=== PATIENT | female | born 1955 | race Caucasian/White ===

== ENCOUNTER 2023-07-26 04:53 | Outpatient (OUT) | payer MEDICARE, OTHER, SELFPAY ==
--- NOTE | 2023-07-26 05:27 | XR_ITS ---
The [address] [address] Patient Name: CHAY DELACRUZ MRN: [id number] date: 1955 Sex: F Assigned Patient Location: [facility] Current Patient Location: [facility] Accession/Order Number: [id number] Exam Date: 07/26/2023 05:29 Report Date: 07/26/2023 15:51 At the request of: JS SALEEM Procedure: XR hip RT min 2V PROCEDURE: XR hip RT min 2V DATE: 07/26/2023 4:29 AM CDT COMPARISONS: None CLINICAL INDICATION: pain FINDINGS: There is no evidence of fractures or other acute osseous abnormalities. Slight spurring of the superior lateral acetabula. Slight cystic change in the area of this spurring. This may represent mild developing degenerative change. The right hip joint space does not appear narrowed however. No other osseous abnormalities identified. XR/XR hip RT min 2V IMPRESSION: Right hip radiographs show no evidence of acute abnormalities. Findings as discussed above. Electronically authenticated by: JOYCELYN QURESHI Date: 07/26/2023 15:51
== END 2023-07-26 04:54 | disposition home or self-care (01) ==
LOC: RAD 04:57
PROVIDERS: Visit Provider Internal Medicine
DX: M25.551 Pain in right hip (principal)
CPT/HCPCS: 73502

== ENCOUNTER 2024-02-08 00:15 | Emergency (ER) | payer MEDICARE, OTHER, SELFPAY ==
--- OUTSIDE RECORDS SUMMARY | 2024-02-08 00:24 | XMS_ITS | CCD ---
Author Organization [facility] Care Team Providers Care Family Nurse Name Role Phone Vivi Liao Primary Care Provider [phone] LUCHO JAUREGUI Referring Unavailable VIVI LIAO Primary Care Unavailable ULCHO JAUREGUI Referring Unavailable VIVI LIAO Primary Care Unavailable Vivi Liao MD Primary Care Provide r Petey Vargas Unavailable [phone] Adan Campbell (Hist) Unavailable Rhiannon Maza RN Unavailable Rome Barboza MD Unavailable Brittany Hernandez PA-C Unavailable Ivory Romo Unavailable Vivi Liao Unavailable VIVI LIAO Primary Care Physician Vivi Liao MD Primary Care Provide r Petey Vargas Unavailable Adan Campbell (Hist) Unavailable Rhiannon Maza RN Unavailable Rome Barboza MD Unavailable [phone] Brittany Hernandez PA-C Unavailable DR KASSIE ARROYO Admitting Unavailable DINA, DR FERNANDO Attending Unavailable DR VIVI LAIO Consulting UnavailDR KASSIE Mendoza Consulting Unavailable BASILIA MUELLER Consulting Unavailable BASILIA MUELLER Attending Unavailable BASILIA MUELLER Admitting Unavailable Rome Barboza Unavailable Unavailable Arnaldo Judd Unavailable Unavailable Cuate, Khaled Unavailable Unavailable Eric Sol MD Unavailable [place] SOFTWARE QUALITY ASSURANCE ANALYST.FUNNEL SETTEREfreny Unavailable Krysta CALIX, Linette Unavailable [phone] MD Vivi Liao Primary Care Provider [phone] DO Raffaele Mejia Emergency Provider ARNALDO JUDD Referring Unavailable VIVI LIAO Primary Care Unavail able SCOTTIE GARCIA Attending Unavailable CHOLO CUELLO Referring Unavailable YUSUF VALDIVIA Attending Unavailable VIVI LIAO Primary Care Unavail able ARNALDO JUDD Attending Unavailable VIVI LIAO Primary Care Unavail able ARNALDO JUDD Admitting Unavailable Petey Vargas Unavailable Eric Sol MD Unavailable Krsyta CALIX, Linette Unavailable Vivi Liao MD Primary [facility] Provide r Petey Vargas Unavailable Adan Campbell (Hist) Unavailable Eric Sol MD Unavailable [place] SOFTWARE QUALITY ASSURANCE ANALYST.FUNNEL SETTEREfreny Unavailable [phone] Krysta CALIX, Linette Unavailable MD Vivi Liao Primary Care Provider MD Kassie Arroyo Attending Provider [phone] Adan Campbell MD Unavailable [phone] Petey Woodall MD Unavailable [phone] Adan Campbell MD Unavailable [phone] Krysta CALIX, Linette Unavailable [phone] MD Vivi Liao Primary Care Provider MD Kassie Arroyo Attending Provider MD Vivi Liao Primary Care Provider MD Kassie Arroyo Attending Provider Vivi Liao Primary Care Unavailable Dina, Kassie Admitting Unavailable Kassie Arroyo Attending Unavailable Vivi Liao Primary Care Unavailable Dina, Kassie Admitting Unavailable Dina, Kassie Attending Unavailable Vivi Liao Primary Care Unavailable Dina, Kassie Admitting Unavailable Dina, Kassie Attending Unavailable CAILIN HOWARD Referring Unavailable VIVI LIAO [facility] Unavail able JULIETTE BUTTS Attending Unavailable VIVI LIAO [facility] Unavail able ABHYANKAR, ERIC Attending Unavailable ABHYANKAR, ERIC Referring Unavailable VIVI LIAO [facility] Unavail able VIVI LIAO Primary [facility] Unavail able CAILIN HOWARD Attending Unavailable VIVI LIAO [facility] Unavail able VIVI LIAO Primary [facility] Unavail able JAROD FAJARDO Attending Unavailable CAILIN HOWARD Attending Unavailable ARNALDO JUDD Referring Unavailable VIVI LIAO [facility] Unavail able ABHYANKAR, ERIC Attending Unavailable ABHYANKAR, ERIC Referring Unavailable VIVI LIAO [facility] Unavail able VIVI LIAO [facility] Unavail able ABHYANKAR, ERIC Referring Unavailable VIVI LIAO [facility] Unavail able JOSE, TOÑA Referring Unavailable VIVI LIAO [facility] Unavail able JOSE, TOÑA Attending Unavailable VIVI LIAO [facility] Unavail able JOSE, TOÑA Referring Unavailable Allergies Allergy Classification Reported Allergen(s) Allergy Type Date of Onset Reaction(s) Facility (2 sources) HYDROmorphone Drug Allergy [facility] Other (1 source) HYDROmorphone Drug Allergy [address] [place] [address] Repository Medications Current Medications Medication Drug Class(es) Dates Sig (Normalized) Sig (Original) albuterol 0.83 mg/ml inhalant solution (2 sources) beta2-Adrenergic Agonist Start: 07-04-2020 End: 08-03-2020 albuterol (PROVENTIL) (2.5 MG/3ML) 0.083% nebulizer solution Indications: Chronic obstructive pulmonary disease, unspecified COPD type (HCC) Take 3 mLs by nebulization every 6 hours as needed for Wheezing 120 each 5 07/04/2020 08/03/2020 Active apixaban 5 mg oral tablet (3 sources) Factor Xa Inhibitor Start: 12-19-2023 End: 03-18-2024 take 1 tablet by mouth twice daily apixaban (ELIQUIS) 5 mg tab(s) Take 1 tablet by mouth two times a day. 60 tablet 2 12/19/2023 03/18/2024 Active Comment on above: Take 1 tablet by jeanmarie th two times a day. azithromycin 250 mg oral tablet (10 sources) Macrolide Antimicrobial Start: 02-25-2022 Zithromax Z-Arsenio 250 MG 2 tablets on the first day, then 1 tablet daily for 4 days Orally Once a day for 5 day(s) Jun, Active dicyclomine hydrochloride 10 mg oral capsule (5 sources) Anticholinergic Start: 05-16-2022 take 10 mg by mouth twice daily Dicyclomine Active 10 MG PO Twice daily May 16, 2022 12:00am famotidine 20 mg oral tablet (20 sources) Histamine-2 Receptor Antagonist Start: 11-28-2021 End: 03-17-2023 take 1 tablet by mouth once daily before mealtime Famotidine (Pepcid Ac) 20 mg Tablet Active 20 MG PO Daily May 16, 2022 12:00am Comment on above: Take 1 tablet by jeanmarie as needed. Flinstones Gummies Buskirk-3 DHA - (5 sources) take 2 tablets by mouth once daily Flinstones Gummies Buskirk-3 DHA - 2 tablets Orally Once a day Active Flintstones Multivitamins (1 source) Start: 10-06-2021 Flintstones Multivitamins 1 tab(s), Chewed, Daily, Refill(s) 0 Start Date: 10/06/21 Status: Ordered furosemide 20 mg oral tablet (19 sources) Loop Diuretic Start: 03-18-2018 End: 04-23-2022 take 1 tablet by mouth once daily as needed Lasix 20 mg Tab 20 mg = 1 tab(s), Oral, Daily, PRN for leg swelling, Refills(s) 0 Start Date: 10/06/21 Status: Ordered Comment on above: Take 20 mg by mouth as needed. imatinib 400 mg oral tablet (20 sources) Kinase Inhibitor Start: 05-14-2022 End: 05-22-2022 take 400 mg by mouth once daily Imatinib Active 400 MG PO Daily May 16, 2022 12:00am Start: 01-16-2022 End: 02-15-2022 take 1 tablet by mouth once daily imatinib (GLEEVEC) 400 mg tablet Take 1 tablet (400 mg) by mouth once daily. 30 tablet 3 01/16/2022 Active Start: 12-11-2021 End: 01-10-2022 take 1 tablet by mouth once daily imatinib (GLEEVEC) 400 mg tablet Take 1 tablet (400 mg) by mouth once daily. 30 tablet 0 12/11/2021 01/10/2022 Active Comment on above: Take 1 tablet (400 m g) by mouth once daily. Take 1 tablet by jeanmarie th once daily levoFLOXacin 500 mg oral tablet (5 sources) Quinolone Antimicrobial Start: 01-27-20 take 1 tablet by mouth every twenty-four hours levoFLOXacin 500 MG 1 tablet Orally Once a day for 10 day(s) Jan, Active Multi For Her (11 sources) Multi For Her Ac tive MULTIPLE VITAMIN PO (2 sources) Start: 10-02-20 18 MULTIPLE VITAMIN PO Multivitamin preparation Multivitamin Active 1 TAB Oral Daily October 02, 2018 6:47pm 10-02-2018 [facility] ([id number]) [id number] 10/02/2018 Active Multivitamin preparation (5 sources) Start: 10-02-20 18 take 1 tablet by mouth once daily Multivitamin Active 1 TAB PO Daily October 02, 2018 12:00am Start: 10-02-2018 take 1 tablet by jeanmarie th once daily Multivitamin Active 1 TAB PO Daily October 02, 2018 1:00am ondansetron 8 mg oral tablet (20 sources) Serotonin-3 Receptor Antagonist Start: 09-17-2023 End: 10-17-2023 take 1 tablet by mouth every eight hours as needed ondansetron (ZOFRAN) 8 mg tablet Take 1 tablet by mouth every 8 hours as needed for nausea/vomiting. 90 tablet 0 09/17/2023 10/17/2023 Active Start: 04-29-2022 End: 05-29-2022 take 1 tablet by mouth every eight hours as needed ondansetron (ZOFRAN) 4 mg tablet Take 1 tablet by mouth every 8 hours as needed for nausea/vomiting. 60 tablet 0 04/29/2022 05/29/2022 Active Start: 11-28-2021 End: 04-18-2022 take 1 tablet by mouth every eight hours as needed ondansetron (ZOFRAN) 8 mg tablet Take 1 tablet by mouth every 8 hours as needed for nausea/vomiting. 90 tablet 2 03/19/2022 04/18/2022 Start: 11-01-2021 take 1 tablet by jeanmarie th every twelve hours Ondansetron HCl 4 MG 1 tablet Orally bid for 30 day(s) Oct, Active Start: 07-05-2018 take 1 tablet by jeanmarie th every eight hours Ondansetron (Zofran Odt) 4 mg tablet,disintegrating Active 4 MG PO Q8H July 05, 2018 11:46am Comment on above: Take 1 tablet by jeanmarie th every 8 hours as needed for nausea/vomiting. Take 8 mg by mouth e very 8 hours as needed for nausea/vomiting. perflutren lipid microspheres 1.3 mL in NaCl (PF) 0.9% 10 mL injection (DEFINITY) (20 sources) Start: 12-19-2023 End: 03-19-2025 perflutren lipid microspheres 1.3 mL in NaCl (PF) 0.9% 10 mL injection (DEFINITY) Start: 03-19-2023 End: 06-17-2024 perflutren lipid microsphere s 1.3 mL in NaCl (PF) 0.9% 10 mL injection (DEFINITY) Start: 04-23-2022 End: 07-23-2023 perflutren lipid microsphere s 1.3 mL in NaCl (PF) 0.9% 10 mL injection (DEFINITY) Respiratory Therapy Supplies (FLUTTER) RUBEN (2 sources) Start: 07-04-2020 Respiratory Th erapy Supplies (FLUTTER) RUBEN Acapella flutter valve device 1 Device 0 07/04/2020 Active Respiratory Therapy Supplies (NEBULIZER AIR TUBE/PLUGS) [facility] (2 sources) Start: 07-04-2020 Respiratory Th erapy Supplies (NEBULIZER AIR TUBE/PLUGS) [facility] Nebulizer machine with tubing and supplies Diagnosis COPD and bronchiectasis 1 each 0 07/04/2020 Active 125 ml sodium chloride 9 mg/ml prefilled syringe (20 sources) Start: 04-23-2022 End: 03-19-2025 sodium chloride 0.9 % (flush) 10 mL (BD POSIFLUSH) sucralfate 1000 mg oral tablet (6 sources) Aluminum Complex Start: 04-29-2022 End: 05-29-2022 take 1 tablet by mouth at bedtime sucralfate (CARAFATE) 1 gram tablet Take 1 tablet by mouth before meals and at bedtime. 120 tablet 0 04/29/2022 05/29/2022 Active Comment on above: Take 1 tablet by jeanmarie th before meals and at bedtime. warfarin sodium 2.5 mg oral tablet (5 sources) Vitamin K Antagonist Warfarin Sodium 2.5 MG as directed Orally Once a day Active Completed/Discontinued Medications Medication Drug Class(es) Dates Sig (Normalized) Sig (Original) acetaminophen 500 mg oral tablet (6 sources) Start: 04-29-2022 End: 05-29-2022 take 2 tablets by mouth every eight hours as needed acetaminophen (TYLENOL) 500 mg tablet Take 2 tablets by mouth every 8 hours as needed for pain. 60 tablet 0 04/29/2022 05/16/2022 Discontinued (Other) Comment on above: Take 2 tablets by mo uth every 8 hours as needed for pain. alendronic acid 70 mg oral tablet (4 sources) Bisphosphonate Start: 10-31-2022 End: 03-17-2023 take 1 tablet by mouth every week in the morning alendronate (FOSAMAX) 70 mg tablet TAKE ONE TABLET BY MOUTH EVERY WEEK ON AN EMPTY STOMACH FIRST THING IN THE MORNING -- DO NOT EAT, DRINK OR LIE DOWN FOR ONE HOUR 0 10/31/2022 03/17/2023 Discontinued Comment on above: TAKE ONE TABLET BY M OUTH EVERY WEEK ON AN EMPTY STOMACH FIRST THING IN THE MORNING -- DO NOT EAT, DRINK OR LIE DOWN FOR ONE HOUR amoxicillin 500 mg oral capsule (14 sources) Penicillin-class Antibacterial Start: 06-20-2023 amoxicillin (AMOXIL) 500 mg capsule Take 500 mg by mouth as needed. Prior to dental procedures 0 06/20/2023 Active Start: 06-12-2023 Amoxicillin 50 0 MG 2 tabs 1-2 hours before the procedure, then 1 tab qid for two days after the procedure Orally for 3 days Jun, Active Start: 07-23-2021 Amoxicillin 50 0 MG 2 tabs 2 hours before procedure, then 1 tab every 6 hours for 2 days after Orally Jul, Active Comment on above: Take 500 mg by mouth as needed. Prior to dental procedures Ascorbic Acid (16 sources) Vitamin C ascorbic acid (VITAMIN C ORAL) Take by mouth once daily. 0 Active Comment on above: Take by mouth once d aily. aspirin 81 mg chewable tablet (20 sources) Platelet Aggregation Inhibitor, Nonsteroidal Anti-inflammatory Drug Start: 02-03-2022 take 1 tablet by mouth once daily aspirin 81 mg chewable tablet Take 81 mg by mouth once daily. 0 02/03/2022 Active Start: 02-03-2022 take 1 tablet by jeanmraie once daily aspirin 81 mg chewable tablet Take 81 mg by mouth once daily. 0 02/03/2022 Active Start: 02-03-2022 take 1 tablet by jeanmarie once daily aspirin 81 mg chewable tablet Take 81 mg by mouth once daily. 0 02/03/2022 Active Start: 10-06-2021 take 2 tablets by mo [facility] once daily aspirin 81 mg chewable tablet Take 162 mg by mouth once daily. 0 02/03/2022 Active Start: 07-05-2018 take 1 tablet by jeanmarie once daily Aspirin (Aspir-81) 81 mg Tablet,Delayed Release (Dr/Ec) Active 81 MG PO Daily July 05, 2018 12:00am take 2 tablets by mo [facility] every twenty-four hours Aspirin Adult Low Dose 81 MG 2 tablets Orally Once a day Active take 2 tablets by mo ut once daily aspirin 81 MG chewable tablet Take 81 mg by mouth daily Takes 2 daily 0 Active Comment on above: Take 81 mg by mouth once daily. Take 162 mg by mouth once daily. cholecalciferol 0.01 mg chewable tablet (9 sources) Vitamin D take 1 tablet by mouth once daily Cholecalciferol, Vitamin D3, (VITAMIN D-3) 10 mcg (400 unit) chew Take 1 tablet by mouth once daily. 0 Active Comment on above: Take 1 tablet by jeanmarie once daily. ciprofloxacin 500 mg oral tablet (5 sources) Quinolone Antimicrobial Start: 2017 End: 2017 take 1 tablet by mouth twice daily Ciprofloxacin Hcl (Cipro) 500 mg tablet Discontinued 500 MG PO Twice daily July 05, 2018 12:00am September 22, 2018 9:07am cyanocobalamin, vitamin B-12, (VITAMIN B-12 ORAL) (16 sources) cyanocobalamin, vitamin B-12, (VITAMIN B-12 ORAL) Take by mouth once daily. 0 Active Comment on above: Take by mouth once d aily. dexamethasone 6 mg oral tablet (16 sources) Corticosteroid Start: 2020 take 1 tablet by mouth every twenty-four hours Dexamethasone 6 MG 1 tablet Orally once a day for 6 days Oct, Not-Taking 0.4 ml enoxaparin sodium 100 mg/ml prefilled syringe (6 sources) Low Molecular Weight Heparin Start: 2021 End: 2021 inject 0.4 mL by subcutaneous injection once daily enoxaparin (LOVENOX) 40 mg/0.4 mL Inject 0.4 mL subcutaneously once daily. 12 mL 0 04/30/2022 05/16/2022 Discontinued (Discontinued by Patient) Comment on above: Inject 0.4 mL subcut aneously once daily. 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) For CT CHESTABD/PEL W IVCON Routine order Administer, As Directed One Time Only, via Oral, Rectal, both Oral and Rectal, Enteric Tube, Stoma or Indwelling Catheter, Enteric Contrast as designated per enteric contrast guidelines 1 Each 0 09/17/2023 Active Start: 03-17-2023 End: 03-18-2023 enteric contrast (will be pr ovided with radiology test) For CT CHESTABD/PEL W IVCON Routine order Administer, As Directed One Time Only, via Oral, Rectal, both Oral and Rectal, Enteric Tube, Stoma or Indwelling Catheter, Enteric Contrast as designated per enteric contrast guidelines 1 Each 0 03/17/2023 03/18/2023 Active Start: 11-11-2022 End: 11-12-2022 enteric contrast (will be pr ovided with radiology test) Indications: Elevated blood protein , Lung nodules , 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) , Polyclonal gammopathy For CT CHESTABD/PEL W IVCON Routine order Administer, As Directed One Time Only, via Oral, Rectal, both Oral and Rectal, Enteric Tube, Stoma or Indwelling Catheter, Enteric Contrast as designated per enteric contrast guidelines 1 Each 0 11/11/2022 11/12/2022 Active Start: 08-04-2022 End: 08-05-2022 enteric contrast (will be pr ovided with radiology test) For CT ABD/PEL W IVCON Routine order Administer, As Directed One Time Only, via Oral, Rectal, both Oral and Rectal, Enteric Tube, Stoma or Indwelling Catheter, Enteric Contrast as designated per enteric contrast guidelines 1 Each 0 08/04/2022 08/05/2022 Active Start: 05-22-2022 End: 05-23-2022 enteric contrast (will be pr ovided with radiology test) For CT CHESTABD/PEL W IVCON Routine order Administer, As Directed One Time Only, via Oral, Rectal, both Oral and Rectal, Enteric Tube, Stoma or Indwelling Catheter, Enteric Contrast as designated per enteric contrast guidelines 1 Each 0 05/22/2022 05/23/2022 Start: 03-19-2022 End: 03-20-2022 enteric contrast (will be pr ovided with radiology test) 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) For CT CHESTABD/PEL W IVCON Routine order Administer, As Directed One Time Only, via Oral, Rectal, both Oral and Rectal, Enteric Tube, Stoma or Indwelling Catheter, Enteric Contrast as designated per enteric contrast guidelines 1 Each 0 03/19/2022 03/20/2022 Active Start: 01-01-2022 End: 01-02-2022 enteric contrast (will be pr ovided with radiology test) 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) For CT CHESTABD/PEL W IVCON Routine order Administer, As Directed One Time Only, via Oral, Rectal, both Oral and Rectal, Enteric Tube, Stoma or Indwelling Catheter, Enteric Contrast as designated per enteric contrast guidelines 1 Each 0 01/01/2022 01/02/2022 Active Comment on above: For CT CHESTABD/PEL W IVCON Routine order Administer, As Directed One Time Only, via Oral, Rectal, both Oral and Rectal, Enteric Tube, Stoma or Indwelling Catheter, Enteric Contrast as designated per enteric contrast guidelines For CT ABD/PEL W IVC ON Routine order Administer, As Directed One Time Only, via Oral, Rectal, both Oral and Rectal, Enteric Tube, Stoma or Indwelling Catheter, Enteric Contrast as designated per enteric contrast guidelines hydroxychloroquine sulfate 200 mg oral tablet (20 sources) Antimalarial, Antirheumatic Agent Start: 2021 take 1 tablet by mouth once daily hydrOXYchloroQUINE (PLAQUENIL) 200 mg tablet Take 200 mg by mouth once daily. 0 02/15/2022 Active Start: 02-15-2022 take 1 tablet by jeanmarie th twice daily at mealtime hydrOXYchloroQUINE (PLAQUENIL) 200 mg tablet TAKE 1 TABLET BY MOUTH TWICE DAILY WITH FOOD AND YEARLY EYE EXAM 0 02/15/2022 Active Comment on above: TAKE 1 TABLET BY JEANMARIE TH TWICE DAILY WITH FOOD AND YEARLY EYE EXAM Take 200 mg by mouth once daily. 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 Discontinue saline lock post exam. If Pt. has a central line or IVAD, may access for administration according to line specific nursing protocol. Once exam is complete flush line and de-access according to line specific nursing protocol in the CT contrast administration guidelines link. 1 Each 0 09/17/2023 Active Start: 08-29-2023 End: 08-30-2023 inject 1 dose intravenously once iv contrast (will be provided with radiology test) Indications: Severe aortic stenosis CTA CHST/ABD/PEL. No IV access, insert saline lock prior to the sedation, infusion, injection for imaging exam. Discontinue saline lock post exam. If Pt. has a central line or IVAD, may access for administration according to line specific nursing protocol. Once exam is complete flush line and de-access according to line specific nursing protocol in the CT contrast administration guidelines link. 1 Each 0 08/29/2023 08/30/2023 Active Start: 03-17-2023 End: 03-18-2023 iv contrast (will be provide d with radiology test) CT Chest ABD/PEL-Inject, intravenously, once for 1 dose.No IV access, insert saline lock prior to the beginning of sedation, infusion, injection of imaging exam. Discontinue saline lock post exam. If Pt. has a central line or IVAD, may access for administration according to line specific nursing protocol. Once exam is complete flush line and de-access according to line specific nursing protocol in the CT contrast administration guidelines link. 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 Discontinue saline lock post exam. If Pt. has a central line or IVAD, may access for administration according to line specific nursing protocol. Once exam is complete flush line and de-access according to line specific nursing protocol in the CT contrast administration guidelines link. 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 Discontinue saline lock post exam. If Pt. has a central line or IVAD, may access for administration according to line specific nursing protocol. Once exam is complete flush line and de-access according to line specific nursing protocol in the CT contrast administration guidelines link. 1 Each 0 10/04/2022 10/05/2022 Start: 08-04-2022 End: 08-05-2022 iv contrast (will be provide d with radiology test) CT ABD/PEL -Inject, intravenously, once for 1 dose.No IV access, insert saline lock prior to the beginning of sedation, infusion, injection of imaging exam. Discontinue saline lock post exam. If Pt. has a central line or IVAD, may access for administration according to line specific nursing protocol. Once exam is complete flush line and de-access according to line specific nursing protocol in the CT contrast administration guidelines link. 1 Each 0 08/04/2022 08/05/2022 Active Start: 05-22-2022 End: 05-23-2022 iv contrast (will be provide d with radiology test) CT Chest ABD/PEL-Inject, intravenously, once for 1 dose.No IV access, insert saline lock prior to the beginning of sedation, infusion, injection of imaging exam. Discontinue saline lock post exam. If Pt. has a central line or IVAD, may access for administration according to line specific nursing protocol. Once exam is complete flush line and de-access according to line specific nursing protocol in the CT contrast administration guidelines link. 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 Discontinue saline lock post exam. If Pt. has a central line or IVAD, may access for administration according to line specific nursing protocol. Once exam is complete flush line and de-access according to line specific nursing protocol in the CT contrast administration guidelines link. 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 Discontinue saline lock post exam. If Pt. has a central line or IVAD, may access for administration according to line specific nursing protocol. Once exam is complete flush line and de-access according to line specific nursing protocol in the CT contrast administration guidelines link. 1 Each 0 01/01/2022 01/02/2022 Active Comment on above: CT Chest ABD/PEL-Inj ect, intravenously, once for 1 dose.No IV access, insert saline lock prior to the beginning of sedation, infusion, injection of imaging exam. Discontinue saline lock post exam. If Pt. has a central line or IVAD, may access for administration according to line specific nursing protocol. Once exam is complete flush line and de-access according to line specific nursing protocol in the CT contrast administration guidelines link. CT ABD/PEL -Inject, intravenously, once for 1 dose.No IV access, insert saline lock prior to the beginning of sedation, infusion, injection of imaging exam. Discontinue saline lock post exam. If Pt. has a central line or IVAD, may access for administration according to line specific nursing protocol. Once exam is complete flush line and de-access according to line specific nursing protocol in the CT contrast administration guidelines link. CT Chest W -Inject, intravenously, once for 1 dose.No IV access, insert saline lock prior to the beginning of sedation, infusion, injection of imaging exam. Discontinue saline lock post exam. If Pt. has a central line or IVAD, may access for administration according to line specific nursing protocol. Once exam is complete flush line and de-access according to line specific nursing protocol in the CT contrast administration guidelines link. CTA CHST/ABD/PEL. No IV access, insert saline lock prior to the sedation, infusion, injection for imaging exam. Discontinue saline lock post exam. If Pt. has a central line or IVAD, may access for administration according to line specific nursing protocol. Once exam is complete flush line and de-access according to line specific nursing protocol in the CT contrast administration guidelines link. 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 Take 1 tablet at 6pm, 7pm, and 11pm the day before your surgery 1 tablet 0 04/19/2022 04/19/2022 Start: 07-05-2018 End: 09-22-2018 take 1 tablet by mouth twice daily Metronidazole (Flagyl) 500 mg tablet Discontinued 500 MG PO Twice daily July 05, 2018 12:00am September 22, 2018 9:07am Comment on above: Take 1 tablet by jeanmarie th one time only for 1 dose. 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 15 tablet 0 04/29/2022 05/16/2022 Discontinued (Course of therapy completed) Comment on above: Take 1 tablet by [place] every 8 hours as needed. pediatric multivitamin no.76 (FLINTSTONES COMPLETE ORAL) (9 sources) take 2 tablets by mouth once daily pediatric multivitamin no.76 (FLINTSTONES COMPLETE ORAL) Take 2 tablets by mouth once daily. 0 Active Comment on above: Take 2 tablets by mo [facility] once daily. predniSONE 5 mg oral tablet (12 sources) Start: 3 End: 3 take 1 tablet by mouth once daily in the morning predniSONE (DELTASONE) 5 mg tablet TAKE 1 TABLET BY MOUTH ONCE DAILY IN THE MORNING 0 10/31/2022 03/17/2023 Discontinued Start: 07-04-2020 predniSONE (DE LTASONE) 10 MG tablet 4 tablets daily for 4 days, 3 tablets daily for 4 days, 2 tablets daily for 4 days, then 1 tablet daily for 14 days 40 tablet 0 07/04/2020 Active take 1 tablet by jeanmarie th every twenty-four hours predniSONE 10 MG 1 tablet Orally Once a day Active Comment on above: TAKE 1 TABLET BY JEANMARIE TH ONCE DAILY IN THE MORNING rivaroxaban 20 mg oral tablet (12 sources) Factor Xa Inhibitor Start: 2 End: 2 take 1 tablet by mouth once daily at dinner rivaroxaban (XARELTO) 20 mg tablet Take 1 tablet by mouth daily with dinner. 14 tablet 0 12/31/2021 04/22/2022 Discontinued (Course of therapy completed) Comment on above: Take 1 tablet by jeanmarie th daily with dinner. therapeutic multivitamin (THERA VITAMIN) tablet (20 sources) Start: 8 End: 3 take 1 tablet by mouth once daily at breakfast therapeutic multivitamin (THERA VITAMIN) tablet Take 1 tablet by mouth daily with breakfast. 0 03/19/2018 08/29/2023 Discontinued (Changing Therapy/Dosage Form) Start: 03-19-2018 take 1 tablet by jeanmarie th once daily at breakfast therapeutic multivitamin (THERA VITAMIN) tablet Take 1 tablet by mouth daily with breakfast. 0 03/19/2018 Active Comment on above: Take 1 tablet by jeanmarie th daily with breakfast. traMADol hydrochloride 50 mg oral tablet (5 sources) Opioid Agonist Start: 7 End: 8 take 50 mg by mouth every four hours Tramadol Discontinued 50 MG PO .q 4 h September 19, 2017 1:00am January 07, 2018 9:40am Problems Active Problems Problem Classification Problem Date Documented Da te Episodic/Chronic Abdominal pain (6 sources) Abdominal pain; Translations: [Unspecified abdominal pain] Onset: 2 Episodic Acute cerebrovascular disease (20 sources) Cerebrovascular accident; Translations: [Cerebral infarction, unspecified] Onset: 2 04-22-2022 Chronic Adjustment disorders (19 sources) Adjustment disorder; Translations: [Adjustment disorder, unspecified] Onset: 1 Resolved: 2 Chronic Asthma (17 sources) Asthma; Translations: [Unspecified asthma, uncomplicated] Onset: 1 Resolved: 1 Chronic Cancer of bone and connective tissue (10 sources) 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; Translations: [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] Onset: 2 Resolved: 2 Chronic Cancer of other GI organs; peritoneum (1 source) Gastrointestinal stromal tumor ; Translations: [Gastrointestinal stromal tumor, unspecified site] Chronic Cancer of other GI organs; peritoneum (20 sources) History of gastrointestinal stromal tumor; Translations: [Personal history of malignant neoplasm of other digestive organs] Onset: 2 Resolved: 2 11-28-2021 Episodic Cancer of stomach (20 sources) Malignant tumor of stomach; Translations: [Gastrointestinal stromal tumor of stomach] Onset: 2 Chronic Chronic obstructive pulmonary disease and bronchiectasis (20 sources) Acute exacerbation of bronchiectasis; Translations: [Bronchiectasis with (acute) exacerbation] Onset: 1 Resolved: 2 Chronic Complications of surgical procedures or medical care (20 sources) Postcardiotomy syndrome; 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] Onset: 1 Resolved: 1 Chronic Congestive heart failure; nonhypertensive (20 sources) Congestive heart failure; Translations: [Heart failure, unspecified] Onset: 2 10-17-2021 Chronic Coronary atherosclerosis and other heart disease (16 sources) Postmyocardial infarction syndrome; 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 Deficiency and other anemia (1 source) Hereditary hemolytic anemia, unspecified; Translations: [Hereditary hemolytic anemia, unspecified] Onset: 3 Chronic Deficiency and other anemia (1 source) Normocytic anemia; Translations: [Anemia, unspecified] Episodic Deficiency and other anemia (1 source) Anemia, unspecified; Translations: [ANEMIA UNSPECIFIED] Onset: 2 Episodic Deficiency and other anemia (1 source) Nutritional anemia; Translations: [Nutritional anemia, unspecified] Episodic Deficiency and other anemia (1 source) Megaloblastic anemia due to vitamin B>12< deficiency; Translations: [Other megaloblastic anemias, not elsewhere classified] Episodic Diverticulosis and diverticulitis (20 sources) Diverticulitis; Translations: [Diverticulitis of intestine, part unspecified, without perforation or abscess without bleeding] Onset: 2 10-17-2021 Chronic Esophageal disorders (20 sources) Gastroesophageal reflux disease; Translations: [Gastro-esophageal reflux disease without esophagitis] Onset: 2 04-22-2022 Chronic Genitourinary symptoms and ill-defined conditions (1 source) Proteinuria, unspecified; Translations: [Proteinuria, unspecified] Onset: 4 Episodic Heart valve disorders (20 sources) Aortic valve stenosis; Translations: [Nonrheumatic aortic (valve) stenosis] Onset: 8 Resolved: 2 03-18-2018 Chronic Immunity disorders (20 sources) Polyclonal gammopathy; 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 ] Onset: 2 05-22-2022 Chronic Malignant neoplasm without specification of site (1 source) Malignant neoplastic disease 05-04-2022 Chronic Nausea and vomiting (2 sources) Nausea; Translations: [Nausea] Onset: 2 Resolved: 2 Episodic Neoplasms of unspecified nature or uncertain behavior (1 source) Monoclonal gammopathy (clinical); Translations: [Monoclonal gammopathy] Chronic Noninfectious gastroenteritis (5 sources) Colitis; Translations: [Noninfective gastroenteritis and colitis, unspecified] 05-16-2022 Episodic Nutritional deficiencies (18 sources) Moderate protein energy malnutrition; Translations: [Moderate protein-calorie malnutrition] Onset: 3 Chronic Other aftercare (9 sources) Post-discharge follow-up; Translations: [Encounter for follow-up examination after completed treatment for conditions other than malignant neoplasm] Episodic Other gastrointestinal disorders (20 sources) Diarrhea; Translations: [Intestinal malabsorption, unspecified] Onset: 2 Chronic Other hematologic conditions (2 sources) Hyperproteinemia; Translations: [Abnormality of plasma protein, unspecified] Episodic Other lower respiratory disease (2 sources) Post-inflammatory pulmonary fibrosis; 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 Other lower respiratory disease (1 source) Interstitial lung disease; Translations: [Interstitial pulmonary disease, unspecified] Chronic Other lower respiratory disease (1 source) Interstitial pulmonary disease, unspecified; Translations: [Interstitial pulmonary disease (HCC)] Onset: 3 Chronic Other lower respiratory disease (1 source) Multiple nodules of lung; Translations: [Other nonspecific abnormal finding of lung field] Episodic Residual codes; unclassified (2 sources) History of partial gastrectomy; Translations: [Acquired absence of stomach [part of]] Episodic Residual codes; unclassified (3 sources) History of gastrectomy; Translations: [Acquired absence of stomach [part of]] Episodic Syncope (1 source) Syncope and collapse; Translations: [Syncope and collapse] Episodic Systemic lupus erythematosus and connective tissue disorders (20 sources) Lupus erythematosus; Translations: [Systemic lupus erythematosus, unspecified] Onset: 2 04-22-2022 Chronic Unclassified (20 sources) Transition of care; Translations: [Transition of care performed with sharing of clinical summary] Onset: 8 03-18-2018 Past or Other Problems Problem Classification Problem Date Documented Da te Episodic/Chronic Administrative/social admission (20 sources) Discharge status; Translations: [Encounter for administrative examinations, unspecified] Onset: 03-12-2018 03-18-2018 Episodic Cardiac dysrhythmias (20 sources) Tachycardia; Translations: [Tachycardia, unspecified] Onset: 03-17-2018 03-18-2018 Episodic Complication of device; implant or graft (20 sources) Prosthetic aortic valve stenosis; Translations: [Stenosis of other cardiac prosthetic devices, implants and grafts, initial encounter] Onset: 11-28-2021 11-28-2021 Episodic Complications of surgical procedures or medical care (20 sources) Postoperative hypertension; Translations: [Postprocedural hypertension] Onset: 03-15-2018 03-18-2018 Episodic Fluid and electrolyte disorders (20 sources) Hypervolemia; Translations: [Fluid overload, unspecified] Onset: 03-15-2018 03-18-2018 Episodic Other aftercare (1 source) Encounter for therapeutic drug level monitoring; Translations: [Medication monitoring encounter Z51.81] Onset: 07-18-2021 Resolved: 07-18-2021 Episodic Other aftercare (1 source) Encounter for follow-up examination after completed treatment for conditions other than malignant neoplasm Onset: 11-01-2021 Resolved: 11-01-2021 Episodic Other disorders of stomach and duodenum (1 source) Other diseases of stomach and duodenum; Translations: [Gastric mass] Onset: 10-18-2021 Episodic Other gastrointestinal disorders (20 sources) Abdominal mass; Translations: [Intra-abdominal and pelvic swelling, mass and lump, unspecified site] Onset: 09-12-2021 10-17-2021 Episodic Other gastrointestinal disorders (1 source) Diarrhea, unspecified Onset: 05-16-2022 Resolved: 05-16-2022 Episodic Other hematologic conditions (1 source) Abnormality of plasma protein, unspecified; Translations: [Elevated blood protein] Onset: 03-10-2023 Episodic Other lower respiratory disease (20 sources) Chronic cough; Translations: [Chronic cough] Onset: 10-17-2021 10-17-2021 Episodic Other lower respiratory disease (1 source) Other nonspecific abnormal finding of lung field; Translations: [Lung nodules] Onset: 03-10-2023 Episodic Other nervous system disorders (20 sources) Postoperative pain ; Translations: [Other acute postprocedural pain] Onset: 03-13-2018 03-18-2018 Episodic Other nervous system disorders (1 source) Other acute postprocedural pain; Translations: [Postoperative pain] Onset: 03-18-2018 Episodic Other upper respiratory disease (20 sources) Polyp of vocal cord ; Translations: [Polyp of vocal cord and larynx] Onset: 03-17-2018 03-18-2018 Episodic Pleurisy; pneumothorax; pulmonary collapse (20 sources) Atelectasis; Translations: [Atelectasis] Onset: 03-13-2018 03-18-2018 Episodic Pneumonia (except that caused by tuberculosis or sexually transmitted disease) (20 sources) Atypical pneumonia; Translations: [Infective pneumonia] Onset: 10-17-2021 10-17-2021 Episodic Residual codes; unclassified (1 source) Acquired absence of stomach [part of]; Translations: [S/P gastrectomy] Onset: 07-22-2023 Episodic Unclassified (1 source) Neoplasm (morphologic abnormality) 05-04-2022 Comment on above: ON STOMACH Unclassified (1 source) Cough R05.9 Results Test Name Value Interpretation Reference Range Facility [place] 12-24-2023 NATALIA Telephone ([facility]) SWATHI VALLADARES ([id number]) 1955 F Date Time Provider Department 12/24/23 TOÑA GARCIA During your visit today, we recorded the following information about you: Ceasar Hooveroine 12/24/2023 11:42 AM Signed Pt called stating that she cannot afford Eliquis at $600 and this is with insurance. Pt is asking if there is anything else that can be done to make it affordable such as a discount card. Or is there another medication. Pt can be reached at [phone] Jodee Damico APRN.EMANUEL 12/24/2023 2:40 PM Signed Left voicemail for patient. We will either have to transition patient to Xarelto or Coumadin. Jodee Damico APRN.EMANUEL Ceasar Hoover Tre 12/24/2023 3:11 PM Signed Patient returned call to ORDER SELECTOR. Pt asked if there is an Eliquis discount card, she said she was told the card she has was used already, so she could not use it. Office also advised pt to contact her insurance or pharmacy to find out cost of xarelto or coumadin in the event there are no Eliquis cards. Pt will call office tomorrow with an update. Ceasar Hoover Tre 12/26/2023 11:50 AM Signed Office called and left detailed vm with this information. Also suggested pt to call office if she would rather take xarelto or coumadin once she finds out how much xarelto would cost as an alternative. Unfortunately she has been on Eliquis before so she won't qualify for a 30 day coupon. Sometimes people can apply online at the Eliquis site to see if they would qualify for a coupon card so she could try that. Leida Neal 12/26/2023 1:47 PM Signed Patient called back. She already picked up the Eliquis and will try it. She said that the first time it was expensive but it would be cheaper on refill. Allergies As of Date: 12/24/2023 (No Known Allergies) Date Reviewed: 11/10/2023 Reviewed by: Jarod Fajardo RD - Fully Assessed Reason for Visit: Medication Question [4818] Prescriptions as of 12/26/2023 - apixaban (ELIQUIS) 5 mg tab(s) Take 1 tablet by mouth two times a day. - iv contrast (will be provided with radiology test) CT Chest ABD/PEL-Inject, intravenously, once for 1 dose.No IV access, insert saline lock prior to the beginning of sedation, infusion, injection of imaging exam. Discontinue saline lock post exam. If Pt. has a central line or IVAD, may access for administration according to line specific nursing protocol. Once exam is complete flush line and de-access according to line specific nursing protocol in the CT contrast administration guidelines link. - enteric contrast (will be provided with radiology test) For CT CHESTABD/PEL W IVCON Routine order Administer, As Directed One Time Only, via Oral, Rectal, both Oral and Rectal, Enteric Tube, Stoma or Indwelling Catheter, Enteric Contrast as designated per enteric contrast guidelines - amoxicillin (AMOXIL) 500 mg capsule Take 500 mg by mouth as needed. Prior to dental procedures - Cholecalciferol, Vitamin D3, (VITAMIN D-3) 10 mcg (400 unit) chew Take 1 tablet by mouth once daily. - pediatric multivitamin no.76 (FLINTSTONES COMPLETE ORAL) Take 2 tablets by mouth once daily. - ascorbic acid (VITAMIN C ORAL) Take by mouth once daily. - cyanocobalamin, vitamin B-12, (VITAMIN B-12 ORAL) Take by mouth once daily. - hydrOXYchloroQUINE (PLAQUENIL) 200 mg tablet Take 200 mg by mouth once daily. - aspirin 81 mg chewable tablet Take 162 mg by mouth once daily. Facility-Administered Medications as of 12/26/2023 - perflutren lipid microspheres 1.3 mL in NaCl (PF) 0.9% 10 mL injection (DEFINITY) - sodium chloride 0.9 % (flush) 10 mL (BD POSIFLUSH) - perflutren lipid microspheres 1.3 mL in NaCl (PF) 0.9% 10 mL injection (DEFINITY) - sodium chloride 0.9 % (flush) 10 mL (BD POSIFLUSH) Problem List As Of Date 12/24/2023 Noted Resolved Discharge planning issues [Z02.9] 03/12/2018 Preop testing [Z01.818] 03/12/2018 03/18/2018 (aortic stenosis) [I35.0] 03/13/2018 Atelectasis [J98.11] 03/13/2018 Postoperative pain [G89.18] 03/13/2018 Postoperative hypovolemia [E89.89, E86.1] 03/13/2018 03/15/2018 Postoperative hypertension [I97.3] 03/15/2018 Fluid overload [E87.70] 03/15/2018 Transition of care performed with sharing of cl*03/16/2018 Tachycardia [R00.0] 03/17/2018 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 Normal [facility] Automated erythrocytes count in urine sediment (number/area)Ordered By: Kassie Arroyo on 12-23-2023 RBC Auto (Urine sed) [#/Area] 0-1 [HPF] 0-4 [facility] Automated leukocytes count i n urine sediment (number/area)Ordered By: Kassie Arroyo on 12-23-2023 WBC Auto (Urine sed) [#/Area] 3-4 [HPF] 0-4 [facility] Bilirubin Test strip Ql (U)O rdered By: Kassie Arroyo on 12-23-2023 Bilirubin Ql (U) Negative Negative [facility] Color Auto (U)Ordered By: Sophia Arroyo on 12-23-2023 Color (U) Yellow Yellow [facility] Dipstick and Microscopicon 0 12-23-2023 Appearance (U) Clear Normal Clear [facility] Comment on above: Order Comment: Name Collection Type:: Voided Performed By: #### A DDONUAPLUS ####[address] [address] [facility] Bacteria,Urine None Seen Normal None Seen [facility] Comment on above: Order Comment: Name Collection Type:: Voided Performed By: #### A DDONUAPLUS ####[address] [address] [place] Bilirubin,Urine Negative Normal Negative [facility] Comment on above: Order Comment: Name Collection Type:: Voided Performed By: #### A DDONUAPLUS ####[address] [address] [facility] Color (U) Yellow Normal Yellow [facility] Comment on above: Order Comment: Name Collection Type:: Voided Performed By: #### A DDONUAPLUS ####[address] [address] [facility] Glucose Ql (U) Normal Normal Normal [facility] Comment on above: Order Comment: Name Collection Type:: Voided Performed By: #### A DDONUAPLUS ####[address] [address] [place] Hyaline Casts,Urine 0-8 Normal 0-8 [facility] Comment on above: Order Comment: Name Collection Type:: Voided Result Comment: PERF ORMED BY: [facility] [address] [place] [address] PATHOLOGIST FINISHER [employer]ORDION ERASMO SAUL M.D. Performed By: #### A DDONUAPLUS ####[address] [address] [place] Ketones Ql (U) Negative Normal Negative [facility] Comment on above: Order Comment: Name Collection Type:: Voided Performed By: #### A DDONUAPLUS ####[address] [address] [facility] Leukocyte esterase Test strip Ql (U) 2+ High Negative [facility] Comment on above: Order Comment: Name Collection Type:: Voided Performed By: #### A DDONUAPLUS ####[address] [address] [facility] Nitrite,Urine Negative Normal Negative [facility] Comment on above: Order Comment: Name Collection Type:: Voided Performed By: #### A DDONUAPLUS ####[address] [address] [facility] Occult Blood,Urine Negative Normal Negative [facility] Comment on above: Order Comment: Name Collection Type:: Voided Performed By: #### A DDONUAPLUS ####[address] [address] [facility] pH (U) 6.0 [pH] Normal 5.0-9.0 [facility] Comment on above: Order Comment: Name Collection Type:: Voided Performed By: #### A DDONUAPLUS ####[place] [id number] [facility] Protein,Urine Trace High Negative [facility] Comment on above: Order Comment: Name Collection Type:: Voided Performed By: #### A DDONUAPLUS ####[place] [id number] [facility] RBC LM.HPF (Urine sed) [#/Area] 0 /[HPF] Normal 0-4 [facility] Comment on above: Order Comment: Name Collection Type:: Voided Performed By: #### A DDONUAPLUS ####[place] [id number] [facility] Specificy [place],Urine 1.022 Normal 1.001-1.030 [facility] Comment on above: Order Comment: Name Collection Type:: Voided Performed By: #### A DDONUAPLUS ####[place] [id number] [facility] Squamous Epithelial Cell,Urine 3-4 High 0-2 [facility] Comment on above: Order Comment: Name Collection Type:: Voided Performed By: #### A DDONUAPLUS ####[place] [id number] [facility] Urobilinogen,Urine Normal Normal Normal [facility] Comment on above: Order Comment: Name Collection Type:: Voided Performed By: #### A DDONUAPLUS ####[facility] [id number] [place] [id number] [facility] WBC,Urine 3-4 Normal 0-4 [facility] [facility] Comment on above: Order Comment: Name Collection Type:: Voided Performed By: #### A DDONUAPLUS ####[facility] [id number] [place] [id number] [facility] Ketones Auto test strip (U) [Mass/Vol]Ordered By: Kassie Arroyo on 12-23-2023 Ketones (U) [Mass/Vol] Negative Negative [facility] Laboratory - UrinalysisOrder ed By: Kassie Arroyo on 12-23-2023 Hyaline casts LM Ql (Urine sed) 0-8 [LPF] 0-8 [facility] Nitrite Test strip Ql (U)Ord ered By: Kassie Arroyo on 12-23-2023 Nitrite Ql (U) Negative Negative [facility] Protein Auto test strip (U) [Mass/Vol]Ordered By: Kassie Arroyo on 12-23-2023 Protein (U) [Mass/Vol] Trace mg/dL Negative [facility] Specific gravity Auto test s trip (U) [Rel density]Ordered By: Kassie Arroyo on 12-23-2023 Specific gravity (U) [Rel density] 1.022 1.001-1.030 [facility] Squamous epithelial cells de tection in urine sediment by light microscopyOrdered By: Kassie Arroyo on 12-23-2023 Epithelial cells.squamous LM Ql (Urine sed) 3-4 [HPF] 0-2 [facility] Urine appearanceOrdered By: Kassie Arroyo on 12-23-2023 Appearance (U) Clear Clear [facility] Urine bacteria detection by automated methodOrdered By: Kassie Arroyo on 12-23-2023 Bacteria Auto Ql (U) None seen None Seen [facility] Urine glucose measurement by automated test strip (mass/volume)Ordered By: Kassie Arroyo on 12-23-2023 Glucose Auto test strip (U) [Mass/Vol] Normal mg/dL Normal [facility] Urine hemoglobin detection b y automated test stripOrdered By: Kassie Arroyo on 12-23-2023 Hemoglobin Auto test strip Ql (U) Negative Negative [facility] Urine leukocyte esterase det ection by automated test stripOrdered By: Kassie Arroyo on 12-23-2023 Leukocyte esterase Auto test strip Ql (U) 2+ Negative [facility] Urobilinogen Auto test strip (U) [Mass/Vol]Ordered By: Kassie Arroyo on 12-23-2023 Urobilinogen (U) [Mass/Vol] Normal mg/dL Normal [facility] pH Auto test strip (U)Ordere d By: Kassie Arroyo on 12-23-2023 pH (U) 6.0 [pH] 5.0-9.0 [facility] CNPNon 12-19-2023 CNPN Telephone (CATHMN) SWATHI VALLADARES ([id number]) 1955 F Date Time Provider Department 12/19/23 TOÑA GARCIA CATHPRIMO During your visit today, we recorded the following information about you: Lorna Manley 12/19/2023 8:09 AM Signed patient called to confirm the time of today's phone visit Allergies As of Date: 12/19/2023 (No Known Allergies) Date Reviewed: 11/10/2023 Reviewed by: Jarod Fajardo RD - Fully Assessed Reason for Visit: Patient Question [1501] Prescriptions as of 12/19/2023 - iv contrast (will be provided with radiology test) CT Chest ABD/PEL-Inject, intravenously, once for 1 dose.No IV access, insert saline lock prior to the beginning of sedation, infusion, injection of imaging exam. Discontinue saline lock post exam. If Pt. has a central line or IVAD, may access for administration according to line specific nursing protocol. Once exam is complete flush line and de-access according to line specific nursing protocol in the CT contrast administration guidelines link. - enteric contrast (will be provided with radiology test) For CT CHESTABD/PEL W IVCON Routine order Administer, As Directed One Time Only, via Oral, Rectal, both Oral and Rectal, Enteric Tube, Stoma or Indwelling Catheter, Enteric Contrast as designated per enteric contrast guidelines - amoxicillin (AMOXIL) 500 mg capsule Take 500 mg by mouth as needed. Prior to dental procedures - Cholecalciferol, Vitamin D3, (VITAMIN D-3) 10 mcg (400 unit) chew Take 1 tablet by mouth once daily. - pediatric multivitamin no.76 (FLINTSTONES COMPLETE ORAL) Take 2 tablets by mouth once daily. - ascorbic acid (VITAMIN C ORAL) Take by mouth once daily. - cyanocobalamin, vitamin B-12, (VITAMIN B-12 ORAL) Take by mouth once daily. - hydrOXYchloroQUINE (PLAQUENIL) 200 mg tablet Take 200 mg by mouth once daily. - aspirin 81 mg chewable tablet Take 162 mg by mouth once daily. Facility-Administered Medications as of 12/19/2023 - perflutren lipid microspheres 1.3 mL in NaCl (PF) 0.9% 10 mL injection (DEFINITY) - sodium chloride 0.9 % (flush) 10 mL (BD POSIFLUSH) Problem List As Of Date 12/19/2023 Noted Resolved Discharge planning issues [Z02.9] 03/12/2018 Preop testing [Z01.818] 03/12/2018 03/18/2018 (aortic stenosis) [I35.0] 03/13/2018 Atelectasis [J98.11] 03/13/2018 Postoperative pain [G89.18] 03/13/2018 Postoperative hypovolemia [E89.89, E86.1] 03/13/2018 03/15/2018 Postoperative hypertension [I97.3] 03/15/2018 Fluid overload [E87.70] 03/15/2018 Transition of care performed with sharing of cl*03/16/2018 Tachycardia [R00.0] 03/17/2018 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] 03/17/2018 Abdominal mass [R19.00] 09/12/2021 Pneumonia due to infectious organism [J18.9] 10/17/2021 Congestive heart failure (HCC) [I50.9] 10/17/2021 Chronic cough [R05.3] 10/17/2021 Diverticulitis [K57.92] 10/17/2021 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] 11/28/2021 Severe aortic stenosis [I35.0] 11/29/2021 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/29/2021 GERD (gastroesophageal reflux disease) [K21.9] 04/22/2022 CVA (cerebral vascular accident) (HCC) [I63.9] 04/22/2022 COPD (chronic obstructive pulmonary disease) (H*04/22/2022 Lupus (HCC) [M32.9] 04/22/2022 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 04/24/2022 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, R19.7] 05/16/2022 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] 05/22/2022 Moderate protein-calorie malnutrition (HCC) [E4*03/17/2023 Encounter Status:Closed by LORNA MANLEY on 12/19/23 Normal [facility] Albumin [Mass/volume] in Ser um or PlasmaOrdered By: Kassie Arroyo on 12-01-2023 Albumin [Mass/Vol] 3.8 g/dL 2.9-4.4 [facility] Automated erythrocytes count in urine sediment (number/area)Ordered By: Kassie Arroyo on 12-01-2023 RBC Auto (Urine sed) [#/Area] 0-1 [HPF] 0-4 [facility] Automated leukocytes count i n urine sediment (number/area)Ordered By: Kassie Arroyo on 12-01-2023 WBC Auto (Urine sed) [#/Area] 20-49 [HPF] 0-4 [facility] Basophils Auto (Bld) [#/Vol] Ordered By: Kassie Arroyo on 12-01-2023 Basophils (Bld) [#/Vol] 0.0 10*3/uL 0.0-0.2 [facility] Basophils/100 WBC Auto (Bld) Ordered By: Kassie Arroyo on 12-01-2023 Basophils/100 WBC (Bld) 0.4 % . [facility] Bilirubin Test strip Ql (U)O rdered By: Kassie Arroyo on 12-01-2023 Bilirubin Ql (U) Negative Negative [facility] C reactive protein [Mass/vol ume] in Serum or PlasmaOrdered By: Kassie Arroyo on 12-01-2023 CRP [Mass/Vol] < 0.5 mg/dL 0.0-0.5 [facility] C-Reactive Proteinon 024 CRP [Mass/Vol] mg/L Normal 0.0-0.5 [facility] Comment on above: Result Comment: PERF ORMED BY: [facility] [address] [place] [address] PATHOLOGIST FINISHER ACCORDION ERASMO SAUL M.D. Performed By: #### C BC, CRP, CREAT, CUU, ESR, ADDONUAPLUS #### [facility] [address] [place] [address] #### KAPPA, SPE, C4, C3, GABRIELE SERUM #### [facility] , Color Auto (U)Ordered By: Sophia Arroyo on 12-01-2023 Color (U) Dark yellow Yellow [facility] Complement C3on 12-01-2023 Complement C3 102 mg/dL Normal 82-167 [facility] Comment on above: Result Comment: Perf ormed at: - [facility] [address] [id number] Key Worker: Roland Hess PhD, Phone: [phone] Performed By: #### C BC, CRP, CREAT, CUU, ESR, ADDONUAPLUS ####[facility] [id number] [place] [address] [place]#### KAPPA, SPE, C4, C3, GABRIELE SERUM ####[facility] , Complement C4on 12-01-2023 Complement C4 10 mg/dL Low 12-38 [facility] Comment on above: Result Comment: Perf ormed at: - [facility] [id number] [place], [place] [id number] Key Worker: Roland Hess PhD, Phone: [phone] Performed By: #### C BC, CRP, CREAT, CUU, ESR, ADDONUAPLUS ####[address]#### KAPPA, SPE, C4, C3, GABRIELE SERUM ####[facility] , Complete Blood Count Auto Di ffon 12-01-2023 Basophils (Bld) [#/Vol] 0.0 10*3/uL Normal 0.0-0.2 [facility] Comment on above: Performed By: #### C BC, CRP, CREAT, CUU, ESR, ADDONUAPLUS #### [address] #### KAPPA, SPE, C4, C3, GABRIELE SERUM #### [facility] , Basophils/100 WBC (Bld) 0.4 % Normal . [facility] Comment on above: Performed By: #### C BC, CRP, CREAT, CUU, ESR, ADDONUAPLUS #### [address] #### KAPPA, SPE, C4, C3, GABRIELE SERUM #### [facility] , Eosinophils (Bld) [#/Vol] 0.3 10*3/uL Normal 0.0-0.45 [facility] Comment on above: Performed By: #### C BC, CRP, CREAT, CUU, ESR, ADDONUAPLUS #### [place] [address] [place] #### KAPPA, SPE, C4, C3, GABRIELE SERUM #### [facility] , Eosinophils/100 WBC (Bld) 7.5 % Normal . [facility] Comment on above: Performed By: #### C BC, CRP, CREAT, CUU, ESR, ADDONUAPLUS #### [address] #### KAPPA, SPE, C4, C3, GABRIELE SERUM #### [facility] , Erythrocyte distribution width (RBC) [Ratio] 12.8 % Normal 11.9-15.3 [facility] Comment on above: Performed By: #### C BC, CRP, CREAT, CUU, ESR, ADDONUAPLUS #### [address] #### KAPPA, SPE, C4, C3, GABRIELE SERUM #### [facility] , Hematocrit (Bld) [Volume fraction] 39.0 % Normal 34.0-46.4 [facility] Comment on above: Performed By: #### C BC, CRP, CREAT, CUU, ESR, ADDONUAPLUS #### [address] #### KAPPA, SPE, C4, C3, GABRIELE SERUM #### [facility] , Hemoglobin (Bld) [Mass/Vol] 13.3 g/dL Normal 11.8-15.4 [facility] Comment on above: Performed By: #### C BC, CRP, CREAT, CUU, ESR, ADDONUAPLUS #### [address] #### KAPPA, SPE, C4, C3, GABRIELE SERUM #### [facility] , Lymphocytes (Bld) [#/Vol] 1.0 10*3/uL Normal 1.00-4.8 [facility] Comment on above: Performed By: #### C BC, CRP, CREAT, CUU, ESR, ADDONUAPLUS #### [place] [address] [place] #### KAPPA, SPE, C4, C3, GBARIELE SERUM #### [facility] , Lymphocytes/100 WBC (Bld) 28.7 % Normal . [facility] Comment on above: Performed By: #### C BC, CRP, CREAT, CUU, ESR, ADDONUAPLUS #### [address] #### KAPPA, SPE, C4, C3, GABRIELE SERUM #### [facility] , MCH (RBC) [Entitic mass] 31.2 pg Normal 24.7-34.3 [facility] Comment on above: Performed By: #### C BC, CRP, CREAT, CUU, ESR, ADDONUAPLUS #### [address] #### KAPPA, SPE, C4, C3, GABRIELE SERUM #### [facility] , MCV (RBC) [Entitic vol] 91.0 fL Normal 80-100 [facility] Comment on above: Performed By: #### C BC, CRP, CREAT, CUU, ESR, ADDONUAPLUS #### [address] #### KAPPA, SPE, C4, C3, GABRIELE SERUM #### [facility] , Mean Corpuscular HGB Conc 34.3 g/dL Normal 32.0-35.0 [facility] Comment on above: Performed By: #### C BC, CRP, CREAT, CUU, ESR, ADDONUAPLUS #### [address] #### KAPPA, SPE, C4, C3, GABRIELE SERUM #### [facility] , Monocytes (Bld) [#/Vol] 0.3 10*3/uL Normal 0.0-0.8 [facility] Comment on above: Performed By: #### C BC, CRP, CREAT, CUU, ESR, ADDONUAPLUS #### [address] #### KAPPA, SPE, C4, C3, GABRIELE SERUM #### [facility] , Monocytes/100 WBC (Bld) 8.8 % Normal . [facility] Comment on above: Performed By: #### C BC, CRP, CREAT, CUU, ESR, ADDONUAPLUS #### [address] #### KAPPA, SPE, C4, C3, GABRIELE SERUM #### [facility] , Neutrophils (Bld) [#/Vol] 1.9 10*3/uL Normal 1.8-7.7 [facility] Comment on above: Performed By: #### C BC, CRP, CREAT, CUU, ESR, ADDONUAPLUS #### [address] #### KAPPA, SPE, C4, C3, GABRIELE SERUM #### [facility] , Neutrophils/100 WBC (Bld) 54.6 % Normal . [facility] Comment on above: Performed By: #### C BC, CRP, CREAT, CUU, ESR, ADDONUAPLUS #### [address] #### KAPPA, SPE, C4, C3, GABRIELE SERUM #### [facility] , NRBC% 0.2 /100{WBC} Normal 0-0.5 [facility] Comment on above: Performed By: #### C BC, CRP, CREAT, CUU, ESR, ADDONUAPLUS #### [place] [address] [place] #### KAPPA, SPE, C4, C3, GABRIELE SERUM #### [facility] , Platelet mean volume (Bld) [Entitic vol] 7.3 fL Normal 6.3-10.7 [facility] Comment on above: Performed By: #### C BC, CRP, CREAT, CUU, ESR, ADDONUAPLUS #### [address] #### KAPPA, SPE, C4, C3, GABRIELE SERUM #### [facility] , Platelets (Bld) [#/Vol] 216 10*3/uL Normal 150-450 [facility] Comment on above: Performed By: #### C BC, CRP, CREAT, CUU, ESR, ADDONUAPLUS #### [facility] [address] [place] [address] #### KAPPA, SPE, C4, C3, GABRIELE SERUM #### [facility] , RBC (Bld) [#/Vol] 4.28 10*6/uL Normal 3.60-5.00 [facility] Comment on above: Performed By: #### C BC, CRP, CREAT, CUU, ESR, ADDONUAPLUS #### [facility] [address] [place] [address] #### KAPPA, SPE, C4, C3, GABRIELE SERUM #### [facility] , WBC (Bld) [#/Vol] 3.4 10*3/uL Low 3.8-11.6 [facility] Comment on above: Performed By: #### C BC, CRP, CREAT, CUU, ESR, ADDONUAPLUS #### [address] #### KAPPA, SPE, C4, C3, GABRIELE SERUM #### [facility] , Creatinineon 12-01-2023 Creatinine [Mass/Vol] 0.74 mg/dL Normal 0.60-1.20 [facility] Comment on above: Performed By: #### C BC, CRP, CREAT, CUU, ESR, ADDONUAPLUS #### [facility] [address] [place] [address] #### KAPPA, SPE, C4, C3, GABRIELE SERUM #### [facility] , GFR/1.73 sq M.predicted MDRD (S/P/Bld) [Vol rate/Area] mL/min/{1.73_m2} Normal [facility] Comment on above: Performed By: #### C BC, CRP, CREAT, CUU, ESR, ADDONUAPLUS #### [facility] [address] [place] [address] #### KAPPA, SPE, C4, C3, GABRIELE SERUM #### [facility] , Creatinine [Mass/volume] in Serum or PlasmaOrdered By: Kassie Arroyo on 12-01-2023 Creatinine [Mass/Vol] 0.74 mg/dL 0.60-1.20 [facility] Dipstick and Microscopicon 0 12-01-2023 Appearance (U) Cloudy Critically abnormal Clear [facility] Comment on above: Order Comment: Name Collection Type:: Clean-Voided Midstream Performed By: #### C BC, CRP, CREAT, CUU, ESR, ADDONUAPLUS #### [address] #### KAPPA, SPE, C4, C3, GABRIELE SERUM #### [facility] , Bacteria,Urine None Seen Normal None Seen [facility] Comment on above: Order Comment: Name Collection Type:: Clean-Voided Midstream Performed By: #### C BC, CRP, CREAT, CUU, ESR, ADDONUAPLUS #### [facility] [address] [place] [address] #### KAPPA, SPE, C4, C3, GABRIELE SERUM #### [facility] , Bilirubin,Urine Negative Normal Negative [facility] Comment on above: Order Comment: Name Collection Type:: Clean-Voided Midstream Performed By: #### C BC, CRP, CREAT, CUU, ESR, ADDONUAPLUS #### [address] #### KAPPA, SPE, C4, C3, GABRIELE SERUM #### [facility] , Color (U) Dark Yellow Critically abnormal Yellow [facility] Comment on above: Order Comment: Name Collection Type:: Clean-Voided Midstream Performed By: #### C BC, CRP, CREAT, CUU, ESR, ADDONUAPLUS #### [place] [id number] [place] #### KAPPA, SPE, C4, C3, GABRIELE SERUM #### [facility] , Glucose Ql (U) Normal Normal Normal [facility] Comment on above: Order Comment: Name Collection Type:: Clean-Voided Midstream Performed By: #### C BC, CRP, CREAT, CUU, ESR, ADDONUAPLUS #### [address] #### KAPPA, SPE, C4, C3, GABRIELE SERUM #### [facility] , Hyaline Casts,Urine 9-19 High 0-8 [facility] Comment on above: Order Comment: Name Collection Type:: Clean-Voided Midstream Result Comment: PERF ORMED BY: [place] [address] PATHOLOGIST FINISHER ACCORDION ERASMO SAUL M.D. Performed By: #### C BC, CRP, CREAT, CUU, ESR, ADDONUAPLUS #### [address] #### KAPPA, SPE, C4, C3, GABRIELE SERUM #### [facility] , Ketones Ql (U) Negative Normal Negative [facility] Comment on above: Order Comment: Name Collection Type:: Clean-Voided Midstream Performed By: #### C BC, CRP, CREAT, CUU, ESR, ADDONUAPLUS #### [address] #### KAPPA, SPE, C4, C3, GABRIELE SERUM #### [facility] , Leukocyte esterase Test strip Ql (U) 2+ High Negative [facility] Comment on above: Order Comment: Name Collection Type:: Clean-Voided Midstream Performed By: #### C BC, CRP, CREAT, CUU, ESR, ADDONUAPLUS #### [address] #### KAPPA, SPE, C4, C3, GABRIELE SERUM #### [facility] , Nitrite,Urine Negative Normal Negative [facility] Comment on above: Order Comment: Name Collection Type:: Clean-Voided Midstream Performed By: #### C BC, CRP, CREAT, CUU, ESR, ADDONUAPLUS #### [address] #### KAPPA, SPE, C4, C3, GABRIELE SERUM #### [facility] , Occult Blood,Urine Negative Normal Negative [facility] Comment on above: Order Comment: Name Collection Type:: Clean-Voided Midstream Performed By: #### C BC, CRP, CREAT, CUU, ESR, ADDONUAPLUS #### [address] #### KAPPA, SPE, C4, C3, GABRIELE SERUM #### [facility] , pH (U) 5.5 [pH] Normal 5.0-9.0 [facility] Comment on above: Order Comment: Name Collection Type:: Clean-Voided Midstream Performed By: #### C BC, CRP, CREAT, CUU, ESR, ADDONUAPLUS #### [address] #### KAPPA, SPE, C4, C3, GABRIELE SERUM #### [facility] , Protein (U) [Mass/Vol] 30 mg/dL High Negative [facility] Comment on above: Order Comment: Name Collection Type:: Clean-Voided Midstream Performed By: #### C BC, CRP, CREAT, CUU, ESR, ADDONUAPLUS #### [address] #### KAPPA, SPE, C4, C3, GABRIELE SERUM #### [facility] , RBC LM.HPF (Urine sed) [#/Area] 0 /[HPF] Normal 0-4 [facility] Comment on above: Order Comment: Name Collection Type:: Clean-Voided Midstream Performed By: #### C BC, CRP, CREAT, CUU, ESR, ADDONUAPLUS #### [address] #### KAPPA, SPE, C4, C3, GABRIELE SERUM #### [facility] , Specificy [place],Urine 1.025 Normal 1.001-1.030 [facility] Comment on above: Order Comment: Name Collection Type:: Clean-Voided Midstream Performed By: #### C BC, CRP, CREAT, CUU, ESR, ADDONUAPLUS #### [address] #### KAPPA, SPE, C4, C3, GABRIELE SERUM #### [facility] , Squamous Epithelial Cell,Urine 10-19 High 0-2 [facility] Comment on above: Order Comment: Name Collection Type:: Clean-Voided Midstream Performed By: #### C BC, CRP, CREAT, CUU, ESR, ADDONUAPLUS #### [address] #### KAPPA, SPE, C4, C3, GABRIELE SERUM #### [facility] , Urobilinogen,Urine Normal Normal Normal [facility] Comment on above: Order Comment: Name Collection Type:: Clean-Voided Midstream Performed By: #### C BC, CRP, CREAT, CUU, ESR, ADDONUAPLUS #### [address] #### KAPPA, SPE, C4, C3, GABRIELE SERUM #### [facility] , WBC,Urine 20-49 High 0-4 [facility] Comment on above: Order Comment: Name Collection Type:: Clean-Voided Midstream Performed By: #### C BC, CRP, CREAT, CUU, ESR, ADDONUAPLUS #### [address] #### KAPPA, SPE, C4, C3, GABRIELE SERUM #### [facility] , Eosinophils Auto (Bld) [#/Vo l]Ordered By: Kassie Arroyo on 12-01-2023 Eosinophils (Bld) [#/Vol] 0.3 10*3/uL 0.0-0.45 [facility] Eosinophils/100 WBC Auto (Bl d)Ordered By: Kassie Arroyo on 12-01-2023 Eosinophils/100 WBC (Bld) 7.5 % . [facility] Erythrocyte Sedimentation Ra nemo 12-01-2023 ESR (Bld) [Velocity] 65 mm/h High 0-29 [facility] Comment on above: Result Comment: PERF ORMED BY: [facility] [address] [place] [address] PATHOLOGIST FINISHER ACCORDION ERASMO SAUL M.D. Performed By: #### C BC, CRP, CREAT, CUU, ESR, ADDONUAPLUS #### [facility] [address] #### KAPPA, SPE, C4, C3, GABRIELE SERUM #### [facility] , Erythrocyte distribution wid th Auto (RBC) [Ratio]Ordered By: Kassie Arroyo on 12-01-2023 Erythrocyte distribution width (RBC) [Ratio] 12.8 % 11.9-15.3 [facility] Erythrocyte sedimentation ra te by Photometric methodOrdered By: Kassie Arroyo on 12-01-2023 ESR Photometric method (Bld) [Velocity] 65 mm/hr 0-29 [facility] Free K+L LT Chains, Qn, Son 12-01-2023 Free [place] Light Chains, S 92.1 mg/L High 3.3-19.4 [facility] Comment on above: Performed By: #### C BC, CRP, CREAT, CUU, ESR, ADDONUAPLUS ####[facility]#### KAPPA, SPE, C4, C3, GABRIELE SERUM ####[facility] , Free [place] Light Chains, S 35.2 mg/L High 5.7-26.3 [facility] Comment on above: Performed By: #### C BC, CRP, CREAT, CUU, ESR, ADDONUAPLUS ####[facility]#### KAPPA, SPE, C4, C3, GABRIELE SERUM ####[facility] , [place]/Lambda Ratio, S 2.62 High 0.26-1.65 [facility] Comment on above: Result Comment: Perf ormed at: CB - [facility] [address] [id number] Key Worker: Roland Hess PhD, Phone: [phone] PERFORMED BY: [facility] [address] [place] [address] PATHOLOGIST FINISHER ACCORDION ERASMO SAUL M.D. Performed By: #### C BC, CRP, CREAT, CUU, ESR, ADDONUAPLUS ####[facility]#### KAPPA, SPE, C4, C3, GABRIELE SERUM ####[facility] , Hematocrit Auto (Bld) [Volum e fraction]Ordered By: Kassie Arroyo on 12-01-2023 Hematocrit (Bld) [Volume fraction] 39.0 % 34.0-46.4 [facility] Hemoglobin [Mass/volume] in BloodOrdered By: Kassie Arroyo on 12-01-2023 Hemoglobin (Bld) [Mass/Vol] 13.3 g/dL 11.8-15.4 [facility] IgA [Mass/volume] in Serum o r PlasmaOrdered By: Kassie Arroyo on 12-01-2023 IgA [Mass/Vol] 464 mg/dL 87-352 [facility] IgG [Mass/volume] in Serum o r PlasmaOrdered By: Kassie Arroyo on 12-01-2023 IgG [Mass/Vol] 4080 mg/dL 586-1602 [facility] IgM [Mass/volume] in Serum o r PlasmaOrdered By: Kassie Arroyo on 12-01-2023 IgM [Mass/Vol] 81 mg/dL 26-217 [facility] Comment on above: Performed at: CB - [facility] [id number] [place], [place] [id number] Director: Roland Hess PhD, Phone: [phone] Immunofixation,Serumon 12-01 Immunofixation, Serum Normal . [facility] Comment on above: Result Comment: No m onoclonality detected. Performed By: #### C BC, CRP, CREAT, CUU, ESR, ADDONUAPLUS #### [address] #### KAPPA, SPE, C4, C3, GABRIELE SERUM #### [facility] , Immunoglobulin A, Serum 464 mg/dL High 87-352 [facility] Comment on above: Performed By: #### C BC, CRP, CREAT, CUU, ESR, ADDONUAPLUS #### [facility] [address] [place] [address] #### KAPPA, SPE, C4, C3, GABRIELE SERUM #### [facility] , Immunoglobulin G 4080 mg/dL High [phone] [facility] Comment on above: Performed By: #### C BC, CRP, CREAT, CUU, ESR, ADDONUAPLUS #### [address] #### KAPPA, SPE, C4, C3, GABRIELE SERUM #### [facility] , Immunoglobulin M, Serum 81 mg/dL Normal 26-217 [facility] Comment on above: Result Comment: Perf ormed at: CB - [facility] [place] [address] [place], [place] [id number] Key Worker: Roland Hess PhD, Phone: [phone] Performed By: #### C BC, CRP, CREAT, CUU, ESR, ADDONUAPLUS #### [place] [address] [place] #### KAPPA, SPE, C4, C3, GABRIELE SERUM #### [facility] , Immunoglobulin light chains. kappa.free [Mass/volume] in SerumOrdered By: Kassie Arroyo on 12-01-2023 Immunoglobulin light chains.kappa.free (S) [Mass/Vol] 92.1 mg/L 3.3-19.4 [facility] Immunoglobulin light chains. kappa.free/Immunoglobulin light chains.lambda.free [MassOrdered By: Kassie Arroyo on 12-01-2023 Immunoglobulin light chains.kappa.free/Imm unoglobulin light chains.lambda.free (S) [Mass ratio] 2.62 0.26-1.65 [facility] Comment on above: Performed at: [place] [id number] Director: Roland Hess PhD, Phone: [phone] Immunoglobulin light chains. lambda.free [Mass/volume] in Serum or PlasmaOrdered By: Kassie Arroyo on 12-01-2023 Immunoglobulin light chains.lambda.free [Mass/Vol] 35.2 mg/L 5.7-26.3 [facility] Ketones Auto test strip (U) [Mass/Vol]Ordered By: Kassie Arroyo on 12-01-2023 Ketones (U) [Mass/Vol] Negative Negative [facility] Laboratory - UrinalysisOrder ed By: Kassie Arroyo on 12-01-2023 Hyaline casts LM Ql (Urine sed) 9-19 [LPF] 0-8 [facility] Leukocytes [#/volume] correc maddi for nucleated erythrocytes in Blood by Automated counOrdered By: Kassie Arroyo on 12-01-2023 WBC corrected for nucl RBC Auto (Bld) [#/Vol] 3.4 10*3/uL 3.8-11.6 [facility] Lymphocytes Auto (Bld) [#/Vo l]Ordered By: Kassie Arroyo on 12-01-2023 Lymphocytes (Bld) [#/Vol] 1.0 10*3/uL 1.00-4.8 [facility] Lymphocytes/100 WBC Auto (Bl d)Ordered By: Kassie Arroyo on 12-01-2023 Lymphocytes/100 WBC (Bld) 28.7 % . [facility] MCH Auto (RBC) [Entitic mass ]Ordered By: Kassie Arroyo on 12-01-2023 MCH (RBC) [Entitic mass] 31.2 pg 24.7-34.3 [facility] MCHC Auto (RBC) [Mass/Vol]Or dered By: Kassie Arroyo on 12-01-2023 MCHC (RBC) [Mass/Vol] 34.3 g/dL 32.0-35.[address] [facility] MCV Auto (RBC) [Entitic vol] Ordered By: Kassie Arroyo on 12-01-2023 MCV (RBC) [Entitic vol] 91.0 fL 80-100 [facility] Monocytes Auto (Bld) [#/Vol] Ordered By: Kassie Arroyo on 12-01-2023 Monocytes (Bld) [#/Vol] 0.3 10*3/uL 0.0-0.8 [facility] Monocytes/100 WBC Auto (Bld) Ordered By: Kassie Arroyo on 12-01-2023 Monocytes/100 WBC (Bld) 8.8 % . [facility] Neutrophils Auto (Bld) [#/Vo l]Ordered By: Kassie Arroyo on 12-01-2023 Neutrophils (Bld) [#/Vol] 1.9 10*3/uL 1.8-7.7 [facility] Neutrophils/100 WBC Auto (Bl d)Ordered By: Kassie Arroyo on 12-01-2023 Neutrophils/100 WBC (Bld) 54.6 % . [facility] Nitrite Test strip Ql (U)Ord ered By: Kassie Arroyo on 12-01-2023 Nitrite Ql (U) Negative Negative [facility] No Panel InformationOrdered By: Kassie Arroyo on 12-01-2023 Estimated GFR (CKD-EPI) > 60.0 mL/Min [facility] Creatinine Clearance (Chem N/A [facility] Protein Electrophoresis M-Deep Not observed g/dL Not Observed [facility] Protein Electrophoresis Note See comment . [facility] Comment on above: Protein electrophore sis scan will follow via computer,mail, or test administrator delivery.Performed at: [address] [id number] Director: Roland Hess PhD, Phone: [phone] Serum Immunofixation See comment . [facility] Comment on above: No monoclonality det ected. Nucleated erythrocytes [Pres ence] in Blood by Automated countOrdered By: Kassie Arroyo on 12-01-2023 Nucleated RBC Auto Ql (Bld) 0.2 /100{WBC} 0-0.5 [facility] Platelet mean volume Auto (B ld) [Entitic vol]Ordered By: Kassie Arroyo on 12-01-2023 Platelet mean volume (Bld) [Entitic vol] 7.3 fL 6.3-10.7 [facility] Platelets Auto (Bld) [#/Vol] Ordered By: Kassie Arroyo on 12-01-2023 Platelets (Bld) [#/Vol] 216 10*3/uL 150-450 [facility] Protein Auto test strip (U) [Mass/Vol]Ordered By: Kassie Arroyo on 12-01-2023 Protein (U) [Mass/Vol] 30 mg/dL Negative [facility] Protein Electrophoresis, Ser umon 12-01-2023 Albumin [Mass/Vol] 3.8 g/dL Normal 2.9-4.4 [facility] Comment on above: Performed By: #### C BC, CRP, CREAT, CUU, ESR, ADDONUAPLUS ####[place] [id number] [address]#### KAPPA, SPE, C4, C3, GABRIELE SERUM ####[facility] , Albumin/Globulin [Mass ratio] 0.7 {ratio} Normal 0.7-1.7 [facility] Comment on above: Performed By: #### C BC, CRP, CREAT, CUU, ESR, ADDONUAPLUS ####[place] [id number] [address]#### KAPPA, SPE, C4, C3, GABRIELE SERUM ####[facility] , Jfxqn-5-Gptbmzpg 0.2 g/dL Normal 0.0-0.4 [facility] Comment on above: Performed By: #### C BC, CRP, CREAT, CUU, ESR, ADDONUAPLUS ####[address]#### KAPPA, SPE, C4, C3, GABRIELE SERUM ####[facility] , Fgasv-4-Deoecsoj 0.5 g/dL Normal 0.4-1.0 [facility] Comment on above: Performed By: #### C BC, CRP, CREAT, CUU, ESR, ADDONUAPLUS ####[address]#### KAPPA, SPE, C4, C3, GABRIELE SERUM ####[facility] , Beta Globulin 1.0 g/dL Normal 0.7-1.3 [facility] Comment on above: Performed By: #### C BC, CRP, CREAT, CUU, ESR, ADDONUAPLUS ####[address]#### KAPPA, SPE, C4, C3, GABRIELE SERUM ####[facility] , Gamma Globulin 4.1 g/dL High 0.4-1.8 [facility] Comment on above: Performed By: #### C BC, CRP, CREAT, CUU, ESR, ADDONUAPLUS ####[address]#### KAPPA, SPE, C4, C3, GABRIELE SERUM ####[facility] , Globulin (S) [Mass/Vol] 5.7 g/dL High 2.2-3.9 [facility] Comment on above: Performed By: #### C BC, CRP, CREAT, CUU, ESR, ADDONUAPLUS ####[place] [address] [place]#### KAPPA, SPE, C4, C3, GABRIELE SERUM ####[facility] , M-Deep Not Observed Normal Not Observed [facility] Comment on above: Performed By: #### C BC, CRP, CREAT, CUU, ESR, ADDONUAPLUS ####[place] [id number] [address]#### KAPPA, SPE, C4, C3, GABRIELE SERUM ####[facility] , Protein [Mass/Vol] 9.5 g/dL High 6.0-8.5 [facility] Comment on above: Performed By: #### C BC, CRP, CREAT, CUU, ESR, ADDONUAPLUS ####[address]#### KAPPA, SPE, C4, C3, GABRIELE SERUM ####[facility] , SPE-Note Normal . [facility] Comment on above: Result Comment: Prot ein electrophoresis scan will follow via computer, mail, or test administrator delivery. Performed at: [facility] [place] [id number] Key Worker: Roland Hess PhD, Phone: [phone] Performed By: #### C BC, CRP, CREAT, CUU, ESR, ADDONUAPLUS ####[place] [id number] [address]#### KAPPA, SPE, C4, C3, GABRIELE SERUM ####[facility] , Protein [Mass/volume] in Ser um or PlasmaOrdered By: Kassie Arroyo on 12-01-2023 Protein [Mass/Vol] 9.5 g/dL 6.0-8.5 [facility] RBC Auto (Bld) [#/Vol]Ordere d By: Kassie Arroyo on 12-01-2023 RBC (Bld) [#/Vol] 4.28 10*6/uL 3.60-5.00 [facility] Serum globulin measurement ( mass/volume)Ordered By: Kassie Arroyo on 12-01-2023 Globulin (S) [Mass/Vol] 5.7 g/dL 2.2-3.9 [facility] Serum or plasma albumin/glob ulin mass ratioOrdered By: Kassie Arroyo on 12-01-2023 Albumin/Globulin [Mass ratio] 0.7 {ratio} 0.7-1.7 [facility] Serum or plasma alpha 1 glob ulin measurement by electrophoresis (mass/volume)Ordered By: Kassie Arroyo on 12-01-2023 Alpha 1 globulin Elph [Mass/Vol] 0.2 g/dL 0.0-0.4 [facility] Serum or plasma alpha 2 glob ulin measurement by electrophoresis (mass/volume)Ordered By: Kassie Arroyo on 12-01-2023 Alpha 2 globulin Elph [Mass/Vol] 0.5 g/dL 0.4-1.0 [facility] Serum or plasma beta globuli n measurement by electrophoresis (mass/volume)Ordered By: Kassie Arroyo on 12-01-2023 Beta globulin Elph [Mass/Vol] 1.0 g/dL 0.7-1.3 [facility] Serum or plasma complement C 3 measurement (mass/volume)Ordered By: Kassie Arroyo on 12-01-2023 Complement C3 [Mass/Vol] 102 mg/dL 82-167 [facility] Comment on above: Performed at: [facility] [place] [id number] Director: Roland Hess PhD, Phone: [phone] Serum or plasma complement C 4 measurement (mass/volume)Ordered By: Kassie Arroyo on 12-01-2023 Complement C4 [Mass/Vol] 10 mg/dL 12-38 [facility] Comment on above: Performed at: [facility] [place] [id number] Director: Roland Hess PhD, Phone: [phone] Serum or plasma gamma globul in measurement by electrophoresis (mass/volume)Ordered By: Kassie Arroyo on 12-01-2023 Gamma globulin Elph [Mass/Vol] 4.1 g/dL 0.4-1.8 [facility] Specific gravity Auto test s trip (U) [Rel density]Ordered By: Kassie Arroyo on 12-01-2023 Specific gravity (U) [Rel density] 1.025 1.001-1.030 [facility] Squamous epithelial cells de tection in urine sediment by light microscopyOrdered By: aKssie Arroyo on 12-01-2023 Epithelial cells.squamous LM Ql (Urine sed) 10-19 [HPF] 0-2 [facility] Urine Cultureon 12-01-2023 Bacteria identified Cx Nom (U) <9,000 colonies/ml mixed bacterial skin contaminants 2 Days PERFORMED BY: [place] [address] PATHOLOGIST FINISHER ACCORDION ERASMO SAUL M.D. Normal [facility] Comment on above: Performed By: #### C BC, CRP, CREAT, CUU, ESR, ADDONUAPLUS #### [facility] [address] [place] [address] [place] #### KAPPA, SPE, C4, C3, GABRIELE SERUM #### [facility] , Urine bacteria detection by automated methodOrdered By: Kassie Arroyo on 12-01-2023 Bacteria Auto Ql (U) None seen None Seen [facility] Urine clarity by refractomet ry automatedOrdered By: Kassie Arroyo on 12-01-2023 Clarity Refractometry automated (U) Cloudy Clear [facility] Urine culture routineOrdered By: Kassie Arroyo on 12-01-2023 Bacteria identified Cx Nom (U) 2 Days [facility] Urine glucose measurement by automated test strip (mass/volume)Ordered By: Kassie Arroyo on 12-01-2023 Glucose Auto test strip (U) [Mass/Vol] Normal mg/dL Normal [facility] Urine hemoglobin detection b y automated test stripOrdered By: Kassie Arroyo on 12-01-2023 Hemoglobin Auto test strip Ql (U) Negative Negative [facility] Urine leukocyte esterase det ection by automated test stripOrdered By: Kassie Arroyo on 12-01-2023 Leukocyte esterase Auto test strip Ql (U) 2+ Negative [facility] Urobilinogen Auto test strip (U) [Mass/Vol]Ordered By: Kassie Arroyo on 12-01-2023 Urobilinogen (U) [Mass/Vol] Normal mg/dL Normal [facility] WBC Auto (Bld) [#/Vol]Ordere d By: Kassie Arroyo on 12-01-2023 WBC (Bld) [#/Vol] 3.4 10*3/uL 3.8-11.6 [facility] pH Auto test strip (U)Ordere d By: Kassie Arroyo on 12-01-2023 pH (U) 5.5 [pH] 5.0-9.0 [facility] CNPNon 11-21-2023 CNPN Telephone (CATHMN) SWATHI VALLADARES ([id number]) 1955 F Date Time Provider Department 11/21/23 TOÑA GARCIA During your visit today, we recorded the following information about you: Ceasar [place] 11/21/2023 9:25 AM Addendum Pt called to find out when she saw Dr. Garcia in 2022 and wanting to schedule 6 mo follow up appt and testing. Allergies As of Date: 11/21/2023 (No Known Allergies) Date Reviewed: 11/10/2023 Reviewed by: Jarod Fajardo RD - Fully Assessed Reason for Visit: Appointment [186] Prescriptions as of 11/21/2023 - iv contrast (will be provided with radiology test) CT Chest ABD/PEL-Inject, intravenously, once for 1 dose.No IV access, insert saline lock prior to the beginning of sedation, infusion, injection of imaging exam. Discontinue saline lock post exam. If Pt. has a central line or IVAD, may access for administration according to line specific nursing protocol. Once exam is complete flush line and de-access according to line specific nursing protocol in the CT contrast administration guidelines link. - enteric contrast (will be provided with radiology test) For CT CHESTABD/PEL W IVCON Routine order Administer, As Directed One Time Only, via Oral, Rectal, both Oral and Rectal, Enteric Tube, Stoma or Indwelling Catheter, Enteric Contrast as designated per enteric contrast guidelines - amoxicillin (AMOXIL) 500 mg capsule Take 500 mg by mouth as needed. Prior to dental procedures - Cholecalciferol, Vitamin D3, (VITAMIN D-3) 10 mcg (400 unit) chew Take 1 tablet by mouth once daily. - pediatric multivitamin no.76 (FLINTSTONES COMPLETE ORAL) Take 2 tablets by mouth once daily. - ascorbic acid (VITAMIN C ORAL) Take by mouth once daily. - cyanocobalamin, vitamin B-12, (VITAMIN B-12 ORAL) Take by mouth once daily. - hydrOXYchloroQUINE (PLAQUENIL) 200 mg tablet Take 200 mg by mouth once daily. - aspirin 81 mg chewable tablet Take 162 mg by mouth once daily. Facility-Administered Medications as of 11/21/2023 - perflutren lipid microspheres 1.3 mL in NaCl (PF) 0.9% 10 mL injection (DEFINITY) - sodium chloride 0.9 % (flush) 10 mL (BD POSIFLUSH) Problem List As Of Date 11/21/2023 Noted Resolved Discharge planning issues [Z02.9] 03/12/2018 Preop testing [Z01.818] 03/12/2018 03/18/2018 (aortic stenosis) [I35.0] 03/13/2018 Atelectasis [J98.11] 03/13/2018 Postoperative pain [G89.18] 03/13/2018 Postoperative hypovolemia [E89.89, E86.1] 03/13/2018 03/15/2018 Postoperative hypertension [I97.3] 03/15/2018 Fluid overload [E87.70] 03/15/2018 Transition of care performed with sharing of cl*03/16/2018 Tachycardia [R00.0] 03/17/2018 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] 03/17/2018 Abdominal mass [R19.00] 09/12/2021 Pneumonia due to infectious organism [J18.9] 10/17/2021 Congestive heart failure (HCC) [I50.9] 10/17/2021 Chronic cough [R05.3] 10/17/2021 Diverticulitis [K57.92] 10/17/2021 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] 11/28/2021 Severe aortic stenosis [I35.0] 11/29/2021 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/29/2021 GERD (gastroesophageal reflux disease) [K21.9] 04/22/2022 CVA (cerebral vascular accident) (HCC) [I63.9] 04/22/2022 COPD (chronic obstructive pulmonary disease) (H*04/22/2022 Lupus (HCC) [M32.9] 04/22/2022 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 04/24/2022 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, R19.7] 05/16/2022 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] 05/22/2022 Moderate protein-calorie malnutrition (HCC) [E4*03/17/2023 Encounter Status:Closed by CEASAR HOOVER on 11/21/23 [facility] CNOVon 10-13-2023 CNOV Office Visit (BMIREJ ) SWATHI VALLADARES ([id number]) 1955 F Date Time Provider Department 10/13/23 9:00 AM [facility] During your visit today, we recorded the following information about you: Pulse Blood pressure Weight Height 66/minute 170/80 56.2 kg 1.6 m Cailin Howard APRN.CNP 10/13/2023 5:49 PM Signed Assessment Postoperative Visit HPI: Swathi Valladares is a 67 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 She returns today to discussed continued dumping, reactive hypoglycemia ONCOLOGIST: Eric Sol MD Date of Surgery: 04/24/2022 Surgery: SURGERY DETAILS: 1. Exploratory laparotomy. 2. Distal hemigastrectomy. 3. Billroth I reconstruction. Surgical Pathology: PATHOLOGY: T3N0 FINAL DIAGNOSIS A. Celiac artery lymph node, excision: - One lymph node, negative for malignancy (0/1). B. 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 - Six lymph nodes, negative for malignancy (0/6). - Acute erosive gastritis with reactive gastropathy. C. Duodenal staple line , excision: - Segment of duodenum with no diagnostic abnormality. D. Gastric staple line , excision: - Segment of gastric body/fundus with no diagnostic abnormality. Subjective: - having frequent episodes of hypoglycemic / dumping symptoms - seen by endocrinology, they recommend labs (insulin/glucose) at the time of occurrence. - continues to eat very little, does not feel hungry. 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 AANDO, thin, pleasant, no distress Abdomen: soft, no distention Impression and plan: Swathi Valladares is a 68 year old woman following up for reactive hypoglycemia, possible dumping s/p Distal hemigastrectomy, Billroth I reconstruction for treatment of GIST Her symptoms have been difficult to control due to lack of dietary intake - reports never feels hungry. She is going for longer periods during the day without eating, when she is feeling her blood sugar is low she drinks juice, but doesn't necessarily follow that with food causing another episode of the same. - encouraged pt to continue follow up with Endocrinology - she agrees to appointment with Nutrition - in the meantime, will try harder to eat small meals throughout the day, avoiding high carbohydrate meals, no carbs alone - Continues follow up with Oncology for post surgical GIST surveillance Cailin Howard APRN.EMANUEL I spent a total of 28 minutes on the date of the service which included preparing to see the patient, [id number] patient care, completing clinical documentation, performing a medically appropriate examination, counseling and educating the patient/family/caregiv er, communicating with other HCPs (not separately reported), and care coordination (not separately reported). Referring Provider: ARNALDO JUDD [[id number]] Allergies As of Date: 10/13/2023 (No Known Allergies) Date Reviewed: 10/13/2023 Reviewed by: Cailin Howard APRN.FUNNEL SETTER - Fully Assessed Reason for Visit: Established Patient [175] Cmt: Gastrectomy Primary Visit Diagnosis:Hypoglycemia after GI (gastrointestinal) surgery [K91.2] Other Visit Diagnoses:Moderate protein-calorie malnutrition (HCC) [E44.0] S/P gastrectomy [Z90.3] History of gastrointestinal stromal tumor (GIST) [Z85.09] Prescriptions as of 10/13/2023 - ondansetron (ZOFRAN) 8 mg tablet Take 1 tablet by mouth every 8 hours as needed for nausea/vomiting. - iv contrast (will be provided with radiology test) CT Chest ABD/PEL-Inject, intravenously, once for 1 dose.No IV access, insert saline lock prior to the beginning of sedation, infusion, injection of imaging exam. Discontinue saline lock post exam. If Pt. has a central line or IVAD, may access for administration according to line specific nursing protocol. Once exam is complete flush line and de-access according to line specific nursing protocol in the CT contrast administration guidelines link. - enteric contrast (will be provided with radiology test) For CT CHESTABD/PEL W IVCON Routine order Administer, As Directed One Time Only, via Oral, Rectal, both Oral and Rectal, Enteric Tube, Stoma or Indwelling Catheter, Enteric Contrast as designated per enteric contrast guidelines - amoxicillin (AMOXIL) 500 mg capsule Take 500 mg by mouth as needed. Prior to dental procedures - Cholecalciferol, Vitamin D3, (VITAMIN D-3) 10 mcg (400 unit) chew Take 1 tablet by mouth once daily. - pediatric multivitamin no.76 (FLINTSTONES COMPLETE ORAL) Take 2 tablets by mouth once daily. - ascorbic acid (VITAMIN C ORAL) Take by mouth once daily. - cyanocobalam (more content not included)... Normal [facility] CNOVSPon 09-17-2023 OVS Visit (SP) Office (HEMASA) SWATHI VALLADARES ([id number]) 1955 F Date Time Provider Department 09/17/23 10:15 AM ERIC SOL During your visit today, we recorded the following information about you: Temperature Pulse Respiration Blood pressure 97.9 degrees 68/minute 16/minute 165/83 Weight Height 56 kg 1.6 m Eric Sol MD 09/18/2023 8:08 AM Signed NAME: Swathi Valladares CLINIC NO.: [id number] DATE OF SERVICE: September 17, 2023 (Ruiz) Some elements in this clinic note that are critical to medical decision making have been carefully reviewed and included from a prior clinic note dated: March 17, 2023 (Ruiz) PCP and other physicians involved in patient's care: Vivi Liao (PCP), Arnaldo Judd, Cholo Cuello (GI), Toña Garcia (cards), Kassie Oconnor (rheum) DIAGNOSIS: Gastrointestinal Stromal Tumor ASSESSMENT: 68 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 Tissue quantity was insufficient for mutational analysis. She got neoadjuvant imatinib 400 mg daily. Now resected. 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 Remains low risk (3.6% rate of recurrence) despite size of tumor. 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 Anemia: improved. 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 She is also following with dermatology for vasculitis. She is now on hydroxychloroquine. Continue follow ups with dermatology and rheumatology. WBC count decreased due to plaquenil - not neutropenic. IgG elevated. K/L ratio elevated consistent with underlying autoimmune disease. PLAN: CT CAP in 6 months - labs same day. RTC after to review Continue Replacing B12 SL OTC. Patient will follow up with Dr. Judd as needed (Have discussed with him) Patient may need to see him for dumping syndrome ____ HPI: CASE HISTORY: Reverse chronological order 09/08/2023 - SPEP negative for M spike. Elevated K/L ratio 2.71, 79.3:49.3. 09/08/2023 - CT CAP: Chest: Since 03/10/2023, slight increase in size of mildly enlarged mediastinal and right hilar LNs. Unchanged mucous plugging within the right lower lobe. Unchanged nonspecific 0.5 cm right middle lobe noncalcified pulmonary nodule. A/P: Since 03/10/2023, stable postoperative changes involving the stomach. No local recurrence. Unchanged mildly enlarged retroperitoneal lymph nodes. Unchanged mild biliary ductal dilatation. Unchanged 1.1 cm mildly hyperdense observation arising from the right renal lower pole, either a complicated cyst or stable small renal mass. 03/10/2023 - CT CAP: no evidence of recurrence 11/04/2022 - CT CAP: Chronic changes in the lungs otherwise no evidence of recurrence on chest or abdominal/pelvic series. 07/24/2022 - CT CAP: no evidence of metastatic disease. Mild prominence of intra/extra hepatic bile ducts - no mass. 04/24/2022 - ex-Lap, distal karsten-gastrectomy, Billroth I recon, GIST 9.5 cm, 3 mitoses per 5 mm2 - T3 N0 C-kit, PDGFR, and BRAF wild-type, low risk disease. SDHB deficiency, NTRK (-) 04/16/2022 - CT CAP - stable thoracic LN, and pulmonary nodules; unchanged exophytic heterogeneously enhancing gastric mass., 1.1 cm right renal complex cycst - new. 01/29/2022 - CT chest abdomen pelvis with stable gastric mass and borderline chest adenopathy 12/19/2021 - started imatinib 400 mg daily 12/07/2021 - CT abdomen pelvis - no pelvic adenopathy. 11/29/2021 - TAVR done prior to gastric surgery. 11/27/2021 - CT chest - negative for thoracic spread. 11/27/2021 - PET scan: heterogeneous uptake in the known GIST and a focus of uptake in the right hemipelvis may be secondary to ureteral and/or janice uptake. 11/15/2021 - tumor board recommendations were to do a CT chest to complete staging. There was a concern for for a paraaortic node that needed for be evaluated by a PET 11/07/2021 - EGD EUS (Dr. 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 Got CT scans as a part of the evaluation prior to TAVR 03/13/2018 - Open valve replacement. Updated Visit, September 17, 2023: Patient has another autoimmune disease Sjogren syndrome, therefore is the underlying issue in elevated proteins. Mediastinal nodes are not pertinent. The lungs continue to be inflamed. She is not a smoker, but confirms a (more content not included)... Normal [facility] B2 Microglob SerPl-mCncon Nfld-5-Gqcvgwznzprzh [Mass/Vol] 3.0 ug/mL Normal <3.1 [facility] Comment on above: Order Comment: Speci men Type: BLOOD SPECIMEN Ordering Facility: [facility] Address: [address] [place] [address] Result Comment: Beta -2 Microglobulin test is performed using the [employer] immunoturbidimetric method. Results obtained with different methods or kits cannot be used interchangeably. Performed By: #### 2 276-4, 1952-1, 28730-6 #### [facility] CLIA [id number] [address] [place], [place] [id number] [place] CBC W Auto Differential pane l (Bld)on 09-08-2023 Basophils (Bld) [#/Vol] 10*3/uL Normal <0.11 [facility] Comment on above: Order Comment: Rani deneen Type: BLOOD SPECIMEN Ordering Facility: [facility] Address: [address] [place] [address] Performed By: #### 5 7021-8 #### [facility] CLIA [id number] [address] [place] [address] 36584 Basophils/100 WBC (Bld) 0.6 % Normal [facility] Comment on above: Order Comment: Speci men Type: BLOOD SPECIMEN Ordering Facility: [facility] Address: [address] [place] [address] Performed By: #### 5 7021-8 #### [facility] CLIA [id number] [address] [place] [address]646 Differential cell count method Nom (Bld) Auto Normal [facility] Comment on above: Order Comment: Speci men Type: BLOOD SPECIMEN Ordering Facility: [facility] Address: [address] [place] [address] Performed By: #### 5 7021-8 #### [facility] CLIA [id number] [address] [place] [address]87 Eosinophils (Bld) [#/Vol] 0.17 10*3/uL Normal <0.46 [facility] Comment on above: Order Comment: Speci men Type: BLOOD SPECIMEN Ordering Facility: [facility] Address: [address] [place] [address] Performed By: #### 5 7021-8 #### [facility] CLIA [id number] [address] [place] [address]43 Eosinophils/100 WBC (Bld) 4.8 % Normal [facility] Comment on above: Order Comment: Speci men Type: BLOOD SPECIMEN Ordering Facility: [facility] Address: [address] [place] [address] Performed By: #### 5 7021-8 #### [facility] CLIA [id number] [address] [place] [address]776 Erythrocyte distribution width (RBC) [Ratio] 12.2 % Normal 11.5-15.0 [facility] Comment on above: Order Comment: Speci men Type: BLOOD SPECIMEN Ordering Facility: [facility] Address: [address] [place] [address] Performed By: #### 5 7021-8 #### [facility] CLIA [id number] [address] [place] [address]43 Hematocrit (Bld) [Volume fraction] 42.3 % Normal 36.0-46.0 [facility] Comment on above: Order Comment: Speci men Type: BLOOD SPECIMEN Ordering Facility: [facility] Address: [address] [place] [address] Performed By: #### 5 7021-8 #### [facility] CLIA [id number] [address] [place] [address] 90085 Hemoglobin (Bld) [Mass/Vol] 14.0 g/dL Normal 11.5-15.5 [facility] Comment on above: Order Comment: Speci men Type: BLOOD SPECIMEN Ordering Facility: [facility] Address: [address] [place] [address] Performed By: #### 5 7021-8 #### [facility] CLIA [id number] [address] [place] [address] 10677 Immature granulocytes (Bld) [#/Vol] 10*3/uL Normal <0.10 [facility] Comment on above: Order Comment: Speci men Type: BLOOD SPECIMEN Ordering Facility: [facility] Address: [address] [place] [address] Performed By: #### 5 7021-8 #### [facility] CLIA [id number] [address] [place] [address] 99925 Immature granulocytes/100 WBC (Bld) 0.3 % Normal [facility] Comment on above: Order Comment: Speci men Type: BLOOD SPECIMEN Ordering Facility: [facility] Address: [address] [place] [address] Performed By: #### 5 7021-8 #### [facility] CLIA [id number] [address] [place] [address] Lymphocytes (Bld) [#/Vol] 0.97 10*3/uL Low 1.00-4.00 [facility] Comment on above: Order Comment: Speci men Type: BLOOD SPECIMEN Ordering Facility: [facility] Address: [address] [place] [address] Performed By: #### 5 7021-8 #### [facility] CLIA [id number] [address] [place] [address] 84778 Lymphocytes/100 WBC (Bld) 27.4 % Normal [facility] Comment on above: Order Comment: Speci men Type: BLOOD SPECIMEN Ordering Facility: [facility] Address: [address] [place] [address] Performed By: #### 5 7021-8 #### [facility] CLIA [id number] [address] [place] [address] 85591 MCH (RBC) [Entitic mass] 30.1 pg Normal 26.0-34.0 [facility] Comment on above: Order Comment: Speci men Type: BLOOD SPECIMEN Ordering Facility: [facility] Address: [address] [place] [address] Performed By: #### 5 7021-8 #### [facility] CLIA [id number] [address] [place] [address]996 MCHC (RBC) [Mass/Vol] 33.1 g/dL Normal 30.5-36.0 [facility] Comment on above: Order Comment: Speci men Type: BLOOD SPECIMEN Ordering Facility: [facility] Address: [address] [place] [address] Performed By: #### 5 7021-8 #### [facility] CLIA [id number] [address] [place] [address] 81705 MCV (RBC) [Entitic vol] 91.0 fL Normal 80.0-100.0 [facility] Comment on above: Order Comment: Speci men Type: BLOOD SPECIMEN Ordering Facility: [facility] Address: [address] [place] [address] Performed By: #### 5 7021-8 #### [facility] CLIA [id number] [address] [place] [address] 27033 Monocytes (Bld) [#/Vol] 0.34 10*3/uL Normal <0.87 [facility] Comment on above: Order Comment: Speci men Type: BLOOD SPECIMEN Ordering Facility: [facility] Address: [address] [place] [address] Performed By: #### 5 7021-8 #### [facility] CLIA [id number] [address] [place] [address] 48990 Monocytes/100 WBC (Bld) 9.6 % Normal [facility] Comment on above: Order Comment: Speci men Type: BLOOD SPECIMEN Ordering Facility: [facility] Address: [address] [place] [address] Performed By: #### 5 7021-8 #### [facility] CLIA [id number] [address] [place] [address] 78204 Neutrophils (Bld) [#/Vol] 2.03 10*3/uL Normal 1.45-7.50 [facility] Comment on above: Order Comment: Speci men Type: BLOOD SPECIMEN Ordering Facility: [facility] Address: [address] [place] [address] Performed By: #### 5 7021-8 #### [facility] CLIA [id number] [address] [place] [address] 79937 Neutrophils/100 WBC (Bld) 57.3 % Normal [facility] Comment on above: Order Comment: Speci men Type: BLOOD SPECIMEN Ordering Facility: [facility] Address: [address] [place] [address] Performed By: #### 5 7021-8 #### [facility] CLIA [id number] [address] [place] [address] 40790 Nucleated RBC (Bld) [#/Vol] 10*3/uL Normal <0.01 [facility] Comment on above: Order Comment: Speci men Type: BLOOD SPECIMEN Ordering Facility: [facility] Address: [address] [place] [address] Performed By: #### 5 7021-8 #### [facility] CLIA [id number] [address] [place] [address] 38079 Nucleated RBC/100 WBC (Bld) [Ratio] 0.0 /100 WBC Normal [facility] Comment on above: Order Comment: Speci men Type: BLOOD SPECIMEN Ordering Facility: [facility] Address: [address] [place] [address] Performed By: #### 5 7021-8 #### [facility] CLIA [id number] [address] [place] [address] Platelet mean volume (Bld) [Entitic vol] 9.4 fL Normal 9.0-12.7 [facility] Comment on above: Order Comment: Speci men Type: BLOOD SPECIMEN Ordering Facility: [facility] Address: [address] [place] [address] Performed By: #### 5 7021-8 #### [facility] CLIA [id number] [address] [place] [address] Platelets (Bld) [#/Vol] 198 10*3/uL Normal 150-400 [facility] Comment on above: Order Comment: Speci men Type: BLOOD SPECIMEN Ordering Facility: [facility] Address: [address] [place] [address] Performed By: #### 5 7021-8 #### [facility] CLIA [id number] [address] [place] [address] 36609 RBC (Bld) [#/Vol] 4.65 10*6/uL Normal 3.90-5.20 [facility] Comment on above: Order Comment: Speci men Type: BLOOD SPECIMEN Ordering Facility: [facility] Address: [address] [place] [address] Performed By: #### 5 7021-8 #### [facility] CLIA [id number] [address] [place] [address] 47007 WBC (Bld) [#/Vol] 3.54 10*3/uL Low 3.70-11.00 [facility] Comment on above: Order Comment: Speci men Type: BLOOD SPECIMEN Ordering Facility: [facility] Address: [address] [place] [address] Performed By: #### 5 7021-8 #### [facility] CLIA [id number] [address] [place] [address] ABD/PEL W IVCONon 023 CT ABD/PEL W IVCON * * *Final Report* * * DATE OF EXAM: Sep 08 2023 9:35AM [facility] 0530 - CT ABD/PEL W IVCON / PROCEDURE REASON: Malignant neoplasm of stomach, unspecified location (HCC) * * * * Physician Interpretation * * * * RESULT: EXAMINATION: CT ABDOMEN AND PELVIS WITH IV CONTRAST CLINICAL HISTORY: Malignant neoplasm of the stomach. Interstitial lung disease. TECHNIQUE: CT of the abdomen and pelvis was performed using standard technique, scanning from just above the dome of the diaphragm to the symphysis pubis. MQ: CTAP_3 Contrast: IV: 110 ml of Omnipaque 300 Oral: 500 ml of dilute Omnipaque 240 CT Radiation dose: Integrated Dose-length product (DLP) for this visit = 497 mGy*cm. CT Dose Reduction Employed: Automated exposure control (AEC) COMPARISON: CT abdomen/pelvis 03/10/2023; 11/04/2022; 07/24/2022; 04/16/2022 RESULT: Liver: Normal liver morphology. Again seen are bilobar hepatic cysts, measuring up to 3.4 cm at the right hepatic dome. Additional subcentimeter hepatic hypodensities are unchanged, too small to characterize, and likely also represent cysts. No suspicious hepatic mass. Biliary: Unchanged mild intrahepatic and extra hepatic biliary ductal dilatation. Gallbladder is unremarkable. Spleen: No mass. No splenomegaly. Pancreas: No mass or duct dilation. Adrenals: No mass. Kidneys: The left kidney is unremarkable. Unchanged 1.1 cm mildly hyperdense observation arising from the right renal lower pole (series 3, image 58); this measures greater than simple fluid attenuation, and could represent a complicated cyst or stable small renal mass. Additional subcentimeter hypodensities within the right kidney are unchanged, too small to characterize, and are likely cysts. GI tract: Post surgical changes noted along the posterior gastric body. The bowel is normal in caliber and without evidence of wall thickening or obstruction. There are sigmoid colonic diverticula, without associated inflammation. The appendix is normal. Lymph nodes: Again noted are mildly enlarged retroperitoneal lymph nodes, with representative government relations measurements detailed as follows on series 3: -Image 38, left para-aortic, 1.1 cm (unchanged) -Image 41, aortocaval, 1 cm (unchanged) -Image 53, left para-aortic, 1.3 cm (unchanged) Mesentery/Peritoneum: No ascites or mass. Retroperitoneum: No mass. Vasculature: - Abdominal aorta and iliac arteries: Atherosclerotic calcifications without aneurysm. - Celiac and SMA: Patent without stenosis. - Portal venous system (SMV, splenic vein, portal vein and branches): Patent. - Hepatic veins: Patent. Pelvis: No mass, ascites or fluid collection. The rectum and urinary bladder are unremarkable. Bones/Soft Tissues: No destructive lytic or blastic osseous abnormality. Degenerative changes involve the lumbar spine. Lower thorax: Please refer to concurrently acquired and separately reported chest CT for findings related to the thorax. [address] (topogram) images: No additional findings. IMPRESSION: 1. Since 03/10/2023, stable postoperative changes involving the stomach. No local recurrence. 2. Unchanged mildly enlarged retroperitoneal lymph nodes. 3. Unchanged mild biliary ductal dilatation. 4. Unchanged 1.1 cm mildly hyperdense observation arising from the right renal lower pole, either a complicated cyst or stable small renal mass. 5. Please refer to concurrently acquired and separately reported chest CT for findings related to the thorax. Transcribe Date/Time: Sep 08 2023 2:14P Dictated by: RICKI ROMAN MD This examination was interpreted and the report reviewed and electronically signed by: RICKI ROMAN MD on Sep 08 2023 2:52PM EST Thank you for allowing us to participate in the care of your patient. Should there be any questions regarding this interpretation, please call [phone]. If you are unable to reach us at the number above, please feel free to contact [facility] at [phone]. [id number] Normal [facility] CT CHEST W IVCONon 3 CT CHEST W IVCON * * *Final Report* * * DATE OF EXAM: Sep 08 2023 9:35AM [facility] 0539 - CT CHEST W IVCON / PROCEDURE REASON: Interstitial pulmonary disease (HCC) * * * * Physician Interpretation * * * * RESULT: EXAMINATION: CHEST CT WITH CONTRAST CLINICAL HISTORY: Interstitial lung disease. Gastric neoplasm. Technique: Spiral CT acquisition of the chest from the thoracic inlet to the upper abdomen following IV contrast. MQ: CTCW_6 Contrast: 110 mL Omnipaque [address] Radiation dose: Integrated Dose-length product (DLP) for this visit = 497 mGy*cm CT Dose Reduction Employed: Automated exposure control (AEC) Comparison: CT angiogram of the chest 09/02/2023; CT chest 03/10/2023; CT chest 11/04/2022; CT chest 07/24/2022 RESULT: Limitations: None. Lines, tubes, and devices: None. Lung parenchyma and airways: There is biapical pleural/parenchymal scarring. There is mild bibasilar juxtapleural interstitial reticulation, likely subsegmental atelectasis. No dense airspace consolidation. The central tracheobronchial tree is patent. Multifocal mucous plugging within the right lower lobe (series 4, image 125-121) is unchanged. A 0.5 cm noncalcified juxtapleural nodule within the right middle lobe (series 4, image 114) is unchanged. No enlarging suspicious pulmonary nodule is identified. Pleural space: No pleural effusion. No pleural thickening. Lower neck, lymph nodes, and mediastinum: The imaged thyroid is unremarkable. There are mildly enlarged mediastinal and right hilar lymph nodes. An anterior precarinal lymph node measures 1.3 cm in short axis on series 3, image 75 (previously 1.2 cm). A right hilar lymph node measures 1.3 cm on series 3, image 88 (previously 1.2 cm). Additional subcentimeter short axis mediastinal lymph nodes are unchanged. Heart, pericardium, and thoracic vessels: Status post aortic valve repair. The thoracic aorta and main pulmonary artery are normal in caliber. The cardiac chambers are normal in size. No coronary artery atherosclerotic calcifications are noted, although the study is not optimized for coronary assessment. No pericardial effusion or thickening. Bones and soft tissues: Status post median sternotomy. Degenerative change involves the thoracic spine. No destructive lytic or blastic osseous abnormality. Upper abdomen: Please refer to concurrently acquired and separately reported abdomen CT for findings related to the upper abdomen. [address] (topogram) images: No additional findings. IMPRESSION: 1. Since 03/10/2023, slight increase in size of mildly enlarged mediastinal and right hilar lymph nodes. 2. Unchanged mucous plugging within the right lower lobe. 3. Unchanged nonspecific 0.5 cm right middle lobe noncalcified pulmonary nodule. 4. Please refer to concurrently acquired and separately reported abdomen CT for findings related to the upper abdomen. Transcribe Date/Time: Sep 08 2023 2:32P Dictated by: RICKI ROMAN MD This examination was interpreted and the report reviewed and electronically signed by: RICKI ROMAN MD on Sep 08 2023 2:51PM EST Thank you for allowing us to participate in the care of your patient. Should there be any questions regarding this interpretation, please call [phone]. If you are unable to reach us at the number above, please feel free to contact [facility] at [phone]. [id number] Normal [facility] Calcium.ionized [Moles/Vol]o n 09-08-2023 Calcium.ionized (Bld) [Mass/Vol] 1.28 mmol/L Normal 1.08-1.30 [facility] Comment on above: Order Comment: Speci men Type: BLOOD SPECIMENOrdering Facility: [facility] Address: [address] [place] [address] Performed By: #### 1 995-0 ####[facility] [id number] [place] [address] [place] [facility] Calcium.ionized adjusted to pH 7.4 (Bld) [Moles/Vol] 1.26 mmol/L Normal 1.08-1.30 [facility] Comment on above: Order Comment: Speci men Type: BLOOD SPECIMENOrdering Facility: [facility] Address: [address] [place] [address] Performed By: #### 1 995-0 ####[facility] [id number] [place] [address] [place] Comprehensive metabolic 2000 panelon 09-08-2023 Albumin [Mass/Vol] 4.6 g/dL Normal 3.9-4.9 [facility] Comment on above: Order Comment: Speci men Type: BLOOD SPECIMENOrdering Facility: [facility] Address: [address] [place] [address] Performed By: #### 3 084-1, 2777-1, 2-0, 70696-1 ####[facility] [id number] [place] [address] ALP [Catalytic activity/Vol] 99 U/L Normal 34-123 [facility] Comment on above: Order Comment: Speci men Type: BLOOD SPECIMENOrdering Facility: [facility] Address: [address] [place] [address] Performed By: #### 3 084-1, 2777-1, 253-0, 29193-7 ####[facility] [id number] [place] [address] ALT [Catalytic activity/Vol] 15 U/L Normal 7-38 [facility] Comment on above: Order Comment: Speci men Type: BLOOD SPECIMENOrdering Facility: [facility] Address: [address] [place] [address] Performed By: #### 3 084-1, 2777-1, 2531-0, 92215-1 ####[facility] [id number] [place] [address] Anion gap [Moles/Vol] 9 mmol/L Normal 9-18 [facility] Comment on above: Order Comment: Speci men Type: BLOOD SPECIMENOrdering Facility: [facility] Address: [address] [place] [address] Performed By: #### 3 084-1, 2777-1, 2531-0, 86279-1 ####[facility] [id number] [place] [address] AST [Catalytic activity/Vol] 23 U/L Normal 13-35 [facility] Comment on above: Order Comment: Speci men Type: BLOOD SPECIMENOrdering Facility: [facility] Address: [address] [place] [address] Performed By: #### 3 084-1, 2777-1, 2532-0, 39493-3 ####[facility] [id number] [place] [address] Bilirubin [Mass/Vol] 0.6 mg/dL Normal 0.2-1.3 [facility] Comment on above: Order Comment: Speci men Type: BLOOD SPECIMENOrdering Facility: [facility] Address: [address] [place] [address] Performed By: #### 3 084-1, 2777-1, 2532-0, 97628-5 ####[facility] [id number] [place] [address] Calcium [Mass/Vol] 10.0 mg/dL Normal 8.5-10.2 [facility] Comment on above: Order Comment: Speci men Type: BLOOD SPECIMENOrdering Facility: [facility] Address: [address] [place] [address] Performed By: #### 3 084-1, 2777-1, 2531-0, 45811-9 ####[facility] [id number] [place] [address] Chloride [Moles/Vol] 102 mmol/L Normal 97-105 [facility] Comment on above: Order Comment: Speci men Type: BLOOD SPECIMENOrdering Facility: [facility] Address: [address] [place] [address] Performed By: #### 3 084-1, 2777-1, 2531-0, 37285-8 ####[facility] [id number] [place] [address] CO2 [Moles/Vol] 27 mmol/L Normal 22-30 [facility] Comment on above: Order Comment: Speci men Type: BLOOD SPECIMENOrdering Facility: [facility] Address: [address] [place] [address] Performed By: #### 3 084-1, 2777-1, 2532-0, 10239-3 ####[facility] [id number] [place] [address] Creatinine [Mass/Vol] 0.82 mg/dL Normal 0.58-0.96 [facility] Comment on above: Order Comment: Shamar brothers Type: BLOOD SPECIMENOrdering Facility: [facility] Address: [address] [place] [address] Performed By: #### 3 084-1, 2777-1, 2532-0, 15036-9 ####[facility] [id number] [place] [address] Creatinine and Glomerular filtration rate.predicted panel (S/P/Bld) 78 mL/min/1.73m??? Normal >=60 [facility] Comment on above: Order Comment: Shamar brothers Type: BLOOD SPECIMENOrdering Facility: [facility] Address: [address] [place] [address] Result Comment: Fatmata mated Glomerular Filtration Rate (eGFR) is calculated using the 2020 CKD-EPI creatinine equation. This equation utilizes serum creatinine, sex, and age as parameters. The creatinine assay has traceable calibration to isotope dilution-mass spectrometry. Refer to KDIGO guidelines for clinical interpretation. In patients with unstable renal function, e.g. those with acute kidney injury, the eGFR may not accurately reflect actual GFR. Performed By: #### 3 084-1, 2777-1, 2532-0, 79426-1 ####[facility] [id number] [place] [address] Glucose [Mass/Vol] 87 mg/dL Normal 74-99 [facility] Comment on above: Order Comment: Shamar brothers Type: BLOOD SPECIMENOrdering Facility: [facility] Address: [address] [place] [address] Result Comment: The [place] Diabetes Association (ADA) provides guidance for cutoff values for fasting glucose and random glucose. The ADA defines fasting as no caloric intake for at least 8 hours. Fasting plasma glucose results between 100 to 125 mg/dL indicate increased risk for diabetes (prediabetes). Fasting plasma glucose results greater than or equal to 126 mg/dL meet the criteria for diagnosis of diabetes. In the absence of unequivocal hyperglycemia, results should be confirmed by repeat testing. In a patient with classic symptoms of hyperglycemia or hyperglycemic crisis, random plasma glucose results greater than or equal to 200 mg/dL meet the criteria for diagnosis of diabetes. Reference: Standards of Medical Care in Diabetes 2016, [place] Diabetes Association. Diabetes Care. 2016.39(Suppl 1). Performed By: #### 3 084-1, 2777-1, 2532-0, 37736-9 ####[facility] [id number] [place] [address] Potassium [Moles/Vol] 3.9 mmol/L Normal 3.7-5.1 [facility] Comment on above: Order Comment: Speci men Type: BLOOD SPECIMENOrdering Facility: SELECT [facility] Address: [address] [place] [address] Performed By: #### 3 084-1, 2777-1, 2531-0, 45500-4 ####[facility] LABCLIA [id number] [place] [address] Protein [Mass/Vol] 10.4 g/dL High 6.3-8.0 [facility] Comment on above: Order Comment: Speci men Type: BLOOD SPECIMENOrdering Facility: [facility] Address: [address] [place] [address] Performed By: #### 3 084-1, 2777-1, 2531-0, 32966-8 ####[facility] LABCLIA [id number] [place] [address] Sodium [Moles/Vol] 138 mmol/L Normal 136-144 [facility] Comment on above: Order Comment: Speci men Type: BLOOD SPECIMENOrdering Facility: [facility] Address: [address] [place] [address] Performed By: #### 3 084-1, 2777-1, 2-0, 08326-6 ####[facility] LABCLIA [id number] [place] [address] Urea nitrogen [Mass/Vol] 20 mg/dL Normal 7-21 [facility] Comment on above: Order Comment: Speci men Type: BLOOD SPECIMENOrdering Facility: [facility] Address: [place] [address] Performed By: #### 3 084-1, 2777-1, 2532-0, 93377-2 ####[facility] LABCLIA [id number] [place] [address] Ferritin SerPl-mCncon 2022 Ferritin [Mass/Vol] 95.9 ng/mL Normal 14.7-205.1 [facility] Comment on above: Order Comment: Speci men Type: BLOOD SPECIMEN Ordering Facility: [facility] Address: [place] [address] Performed By: #### 2 276-4, 1952-1, 58515-6 #### [facility] CLIA [id number] [address] [place] [address] [place] Folate SerPl-mCncon 09-08-20 23 Folate [Mass/Vol] ng/mL Normal >4.7 [facility] Comment on above: Order Comment: Speci men Type: BLOOD SPECIMENOrdering Facility: [facility] Address: [place] [address] Result Comment: A re sult of > 20 ng/mL is not necessarily indicative of a pathologic or treatable condition: it reflects a limitation of the test methodology. Assay reference range: 4.8 to 24.2 ng/mL. Suitable for detection of folate deficiency. Reference: Folate III (Folate III) [package insert V 1.0 Burmese]. [facility], [place], [place]: August 2015. Performed By: #### 2 132-9, 2284-8, 2885-2 ####[facility] LABCLIA [id number] [place] [address] [place] IMMUNOFIXATION SCREEN, SERUM on 09-08-2023 MPA RESULT No M protein is identified. Normal No M protein is identified. [facility] Comment on above: Order Comment: Speci men Type: BLOOD SPECIMENOrdering Facility: [facility] Address: [address] [place] [address] Performed By: #### I FES ####[facility]CLIA [id number] [address] STAFF REVIEW (MPA) Reviewed by Karol Hoang M.D., Ph.D Normal [facility] Comment on above: Order Comment: Speci men Type: BLOOD SPECIMENOrdering Facility: [facility] Address: [address] [place] [address] Performed By: #### I [facility] ####[facility] LABCLIA [id number] [place] [address] [place] IMMUNOGLOBULINS GAMon 2022 IgA [Mass/Vol] 471 mg/dL High 70-400 [facility] Comment on above: Order Comment: Speci men Type: BLOOD SPECIMEN Ordering Facility: [facility] Address: [address] [place] [address] Performed By: #### 2 276-4, 1951-10, #### [facility] CLIA [id number] [address] [place] [address] [place] IgG [Mass/Vol] 4416 mg/dL High 700-1600 [facility] Comment on above: Order Comment: Speci men Type: BLOOD SPECIMEN Ordering Facility: [facility] Address: [address] [place] [address] Performed By: #### 2 276-4, 1951-10, #### [facility] CLIA [id number] [address] [place] IgM [Mass/Vol] 80 mg/dL Normal 40-230 [facility] Comment on above: Order Comment: Speci men Type: BLOOD SPECIMEN Ordering Facility: [facility] Address: [address] [place] [address] Performed By: #### 2 276-4, 1951-10, #### [facility] CLIA [id number] [address] [place] [address] [place] Iron and Iron binding capaci ty panelon 09-08-2023 Iron [Mass/Vol] 58 ug/dL Normal 41-186 [facility] Comment on above: Order Comment: Speci men Type: BLOOD SPECIMEN Ordering Facility: [facility] Address: [address] [place] [address] Performed By: #### 2 276-4, 1951-10, 49916-7 #### [facility] CLIA [id number] [address] [place] [address] [place] Iron binding capacity [Mass/Vol] 345 ug/dL Normal 232-386 [facility] Comment on above: Order Comment: Speci men Type: BLOOD SPECIMEN Ordering Facility: [facility] Address: [address] [place] [address] Performed By: #### 2 276-4, 1951-10, #### [facility] IA [id number] [address] [place] [address] [place] Iron/TIBC [Molar ratio] 16.8 % Normal 15.0-57.0 [facility] Comment on above: Order Comment: Speci men Type: BLOOD SPECIMEN Ordering Facility: [facility] Address: [address] [place] [address] Performed By: #### 2 276-4, 1951-10, 38936-6 #### [facility] IA [id number] [address] [place], [place] [id number] [place] KAPPA/BEACH,FREE,SERon 2022 Immunoglobulin light chains.kappa.free (S) [Mass/Vol] 79.3 mg/L High 3.3-19.4 [facility] Comment on above: Order Comment: Speci men Type: BLOOD SPECIMENOrdering Facility: [facility] Address: [address] [place] [address] Result Comment: Rare ly, increased serum free light chains levels may not be detected or accurately quantified due to prozone phenomenon or in high viscosity samples using this immunoturbidimetric assay. Correlation with other laboratory results and clinical findings is recommended. The [place] Free Light Chain was performed using the Binding Site Optilite immunoturbidimetric method. Result obtained with different assay methods or kits cannot be used interchangeably. Performed By: #### K LFRS ####[facility] LABCLIA [id number] [place] [address] [place] Immunoglobulin light chains.kappa/Immunogl obulin light chains.lambda (S) [Mass ratio] 2.71 High 0.26-1.65 [facility] Comment on above: Order Comment: Speci men Type: BLOOD SPECIMENOrdering Facility: [facility] Address: [address] [place] [address] Performed By: #### K LFRS ####[facility] LABCLIA [id number] [place] [address] [place] Immunoglobulin light chains.lambda.free [Mass/Vol] 29.3 mg/L High 5.7-26.3 [facility] Comment on above: Order Comment: Speci men Type: BLOOD SPECIMENOrdering Facility: [facility] Address: [address] [place] [address] Result Comment: Rare ly, increased serum free light chains levels may not be detected or accurately quantified due to prozone phenomenon or in high viscosity samples using this immunoturbidimetric assay. Correlation with other laboratory results and clinical findings is recommended. The [place] Free Light Chain was performed using the Binding Site Optilite immunoturbidimetric method. Result obtained with different assay methods or kits cannot be used interchangeably. Performed By: #### K LFRS ####[facility] LABCLIA [id number] [place] [address] [place] LDH SerPl-cCncon 09-08-2023 LDH [Catalytic activity/Vol] 227 U/L High 135-214 [facility] Comment on above: Order Comment: Speci men Type: BLOOD SPECIMENOrdering Facility: [facility] Address: [address] [place] [address] Result Comment: Hemo lysis present. The origin of the hemolysis, in vitro versus an in vivo hemolytic process, cannot be distinguished via this assay alone. In vitro hemolysis may lead to non-physiological (spurious) elevation in lactate dehydrogenase (LDH) results. The result should be interpreted in context of the clinical setting and other test results. Suggest reorder as clinically indicated. Performed By: #### 3 084-1, 2777-1, 2532-0, 97845-7 ####[facility] LABCLIA [id number] [place] [id number] PROTEIN ELECTROPHORESIS SERU M (P)on 09-08-2023 Albumin [Mass/Vol] 4.35 g/dL Normal 3.43-5.41 [facility] Comment on above: Order Comment: Speci deneen Type: BLOOD SPECIMENOrdering Facility: [facility] Address: [address] [place] [address] Performed By: #### L [id number] ####[facility]CLIA [id number] [place] [address] [place] Alpha 1 globulin Elph [Mass/Vol] 0.26 g/dL Normal 0.18-0.43 [facility] Comment on above: Order Comment: Rani deneen Type: BLOOD SPECIMENOrdering Facility: [facility] Address: [address] [place] [address] Performed By: #### L [id number] ####[facility]CLIA [id number] [place] [address] [place] Alpha 2 globulin Elph [Mass/Vol] 0.39 g/dL Low 0.42-0.98 [facility] Comment on above: Order Comment: Speci men Type: BLOOD SPECIMENOrdering Facility: [facility] Address: [address] [place] [address] Performed By: #### L [id number] ####[facility] [id number] [place] [address] [place] Beta globulin Elph [Mass/Vol] 1.06 g/dL Normal 0.61-1.17 [facility] Comment on above: Order Comment: Speci men Type: BLOOD SPECIMENOrdering Facility: [facility] Address: [address] [place] [address] Performed By: #### L [id number] ####[facility] [id number] [place] [address] [place] Gamma globulin Elph [Mass/Vol] 3.75 g/dL High 0.53-1.51 [facility] Comment on above: Order Comment: Speci men Type: BLOOD SPECIMENOrdering Facility: [facility] Address: [address] [place] [address] Performed By: #### L [id number] ####[facility] [id number] [place] [address] [place] M-PROTEIN LOCATION Normal [facility] Comment on above: Order Comment: Speci men Type: BLOOD SPECIMENOrdering Facility: [facility] Address: [address] [place] [address] Result Comment: Not Applicable. Performed By: #### L [id number] ####[facility] [id number] [place] [address] [place] Protein Fractions [Interp] No definitive M protein is identified on protein electrophoresis. Normal No definitive M protein is identified on protein electrophore sis. [facility] Comment on above: Order Comment: Speci men Type: BLOOD SPECIMENOrdering Facility: [facility] Address: [address] [place] [address] Performed By: #### L [id number] ####[facility] [id number] [place] [address] [place] Protein.monoclonal Elph [Mass/Vol] 0.00 g/dL Normal <=0.00 [facility] Comment on above: Order Comment: Speci men Type: BLOOD SPECIMENOrdering Facility: [facility] Address: [address] [place] [address] Performed By: #### L [id number] ####[facility]CLIA [id number] [place] [id number] [place] SPE STAFF REVIEW Reviewed by Karol Hoang M.D., Ph.D Normal [facility] Comment on above: Order Comment: Speci men Type: BLOOD SPECIMENOrdering Facility: [facility] Address: [address] [place] [address] Performed By: #### L [id number] ####[facility]CLIA [id number] [place] [id number] [place] Phosphate SerPl-mCncon 09-08 Phosphate [Mass/Vol] 3.5 mg/dL Normal 2.7-4.8 [facility] Comment on above: Order Comment: Speci men Type: BLOOD SPECIMENOrdering Facility: [facility] Address: [address] [place] [address] Performed By: #### 3 084-1, 2777-1, 2532-0, 81843-5 ####[facility] LABCLIA [id number] [place] [id number] Prot SerPl-mCncon 09-08-2023 Protein [Mass/Vol] 9.8 g/dL High 6.3-8.0 [facility] Comment on above: Order Comment: Speci men Type: BLOOD SPECIMENOrdering Facility: [facility] Address: [address] [place] [address] Performed By: #### 2 132-9, 2284-8, 2885-2 ####[facility]CLIA [id number] [place] [id number] [place] Urate SerPl-mCncon Urate [Mass/Vol] 2.9 mg/dL Normal 2.5-6.6 [facility] Comment on above: Order Comment: Speci men Type: BLOOD SPECIMENOrdering Facility: [facility] Address: [facility] [place] [address] Performed By: #### 3 084-1, 2777-1, 2532-0, 85600-7 ####[facility] LABCLIA [id number] [place] [address] Vit B12 SerPl-ncon 023 Cobalamin (Vitamin B12) [Mass/Vol] pg/mL High 232-1245 [facility] Comment on above: Order Comment: Speci men Type: BLOOD SPECIMENOrdering Facility: [facility] Address: [address] [place] [id number] Performed By: #### 2 132-9, 2284-8, 2885-2 ####[facility] [id number] [place] [id number] [place] CREATININE, BLOOD (POC)on Creatinine [Mass/Vol] 0.80 mg/dL 0.7 - 1.4 mg/dL [facility] eGFR (POCT) [facility] CTA CHEST (GATED) W IVCONon 09-02-2023 CTA CHEST (GATED) W IVCON * * *Final Report* * * DATE OF EXAM: Sep 02 2023 2:41PM JQC 0125 - CTA CHEST (GATED) W IVCON / PROCEDURE REASON: multiple diagnoses * * * * Physician Interpretation * * * * CTA CARDIAC/Aortic Valve Direct Image Comparison: 03/10/23 HISTORY: 68 years y/o Female with h/o aortic valve stenosis, s/p TAVR Evaluation for suspected leaflet thrombosis/HALT. There is request to define prosthetic aortic valve anatomy including dynamic assessment TECHNIQUE: SCANNER: Multi-detector scanner PROTOCOL: Spiral imaging of the heart with retrospective gating with sub-millimeter slice reconstruction throughout the cardiac cycle for dynamic 4-D assessment, following intravenous contrast administration. Scan Range: carlos to the base of the heart CT Dose-Length Product (DLP): 343 mGy*cm CT Dose Reduction Employed: Automated exposure control(AEC) and iterative recon CONTRAST: IV administration of 70 ml Omnipaque 350 Scan acquisition: uncomplicated For optimization of anatomic evaluation, advanced 3-D off-line postprocessing was performed on a dedicated workstation by the interpreting physician. STUDY LIMITATIONS: None. RESULT: LINES, TUBES and DEVICES: None limited CHEST: visualized Chest wall anatomy: unremarkable. visualized LUNGS: bibasilar atelectasis. visualized MEDIASTINUM: unremarkable. PERICARDIUM: unremarkable CENTRAL PULMONARY ARTERY: normal dimensions, assessment is limited due to limited contrast enhancement CARDIAC CHAMBERS: LEFT VENTRICLE: normal size Right ventricle: normal size Left atrium: mildly dilated. AMENA: normal Right atrium: mildly dilated CENTRAL VENOUS and PULMONARY VENOUS RETURN: normal Coronary Sinus: normal size MITRAL and TRICUSPID VALVE: assessment is limited in the current study - no leaflet calcification. No annular calcification PULMONIC VALVE: assessment is limited in the current study. No leaflet calcification CORONARY ANATOMY: normal origin of the coronary arteries. No definitive evidence of calcified atherosclerotic changes of the coronary arteries. However, the current study is not optimized for coronary assessment. AORTIC VALVE: TAVR with Bio-prosthetic Stent/Valve: - Symmetric expansion, no apparent mass or thrombus/HALT related to leaflets. - Valve leaflets are identified in diastolic reconstruction without evidence of overt thickening or calcification. - Valve leaflets are not clearly identified in systolic reconstructions suggesting fast, unrestricted motion - the [place] calcified leaflets are seen displaced into the periphery of the coronary sinuses visualized AORTA: Size: Normal size thoracic aorta. Pathology: No acute aortic pathology. STJ: maintained Wall Changes: no evidence of wall changes. AORTIC DIMENSIONS: AORTIC ROOT: 3.4 cm measured pfepm-fo-ohdak mid ASCENDING THORACIC AORTA: 3.7 cm mid DESCENDING THORACIC AORTA: 2.5 cm limited upper ABDOMEN: remarkable for 2 low density lesions in liver, likely cysts. [address] (topogram) images: No additional findings. IMPRESSION: No apparent evidence of HALT. TAVR leaflets open without obvious restriction. Cloth Bale Header: SHARON Transcribe Date/Time: Sep 02 2023 2:49P Dictated by : VIRGIE PARDO MD This examination was interpreted and the report reviewed and electronically signed by: VIRGIE PARDO MD on Sep 02 2023 4:20PM EST [id number] Normal [facility] CNOVon 08-29-2023 CNOV Office Visit (CATHMN ) SWATHI VALLADARES ([id number]) 1955 F Date Time Provider Department 08/29/23 2:00 PM TOÑA GARCIA CATHMN During your visit today, we recorded the following information about you: Pulse Respiration Blood pressure Weight 66/minute 16/minute 139/90 54.6 kg Height 1.6 m Toña Garcia MD 08/29/2023 2:05 PM Signed [facility] [place] [facility] Department of Cardiovascular Medicine SECTION OF INTERVENTIONAL CARDIOLOGY OUTPATIENT VISIT DATE August 29, 2023 OUTPATIENT VISIT TYPE ESTABLISHED PRIMARY CARE PHYSICIAN: Vivi Liao (Yvonne) [address] [place] [id number] REFERRING PHYSICIAN: No referring provider defined for this encounter. CHIEF COMPLAINT: ROMY VinV 23 mm S3 11/29/2021 HISTORY OF PRESENT ILLNESS: Ms. Valladares is overall doing well. She had her tumor operation and was off aspirin for a few days. She states that her cough is come back as it was pre-TAVR. Otherwise functionally she remains in reasonably good shape. Echocardiography today shows an LVEF of 67%. The right heart is normal in structure and function. The mitral valve is normal, there is 1+ TR. The aortic bioprosthetic valve is well-seated. Peak/mean transaortic gradients of 40/24 mmHg respectively, the DI 0.37. These gradients have gone up significantly since her last echocardiogram by the prior mean trans aortic gradients was 14 mmHg with a DI of 0.49. PAST CARDIAC HISTORY: See HPI PAST MEDICAL HISTORY Diagnosis Date Aortic stenosis Bicuspid aortic valve COVID-19 03/2022 History of gastrointestinal stromal tumor (GIST) Mitral valve prolapse Prosthetic aortic valve stenosis PAST SURGICAL HISTORY Procedure Laterality Date COLONOSCOPY SCREENING 2018 HYSTERECTOMY LEFT HEART CATH,PERCUTANEOUS PAST SURGICAL HISTORY OF 1979 vocal chord polyp removal, second surgery insert plate SHX AORTIC VALVE REPLACEMENT 2018 #[address] Jeremi LOPEZ OPER STRES INCONTINENCE TAVR/ROMY PERCUT 11/29/2021 Transcatheter Aortic Valve Replacement SOCIAL HISTORY Social History Tobacco Use Smoking status: Never Passive exposure: Never Smokeless tobacco: Never Substance Use Topics Alcohol use: Not Currently Comment: rare Drug use: Never FAMILY HISTORY Problem Relation Age of Onset Hypertension Mother Skin Cancer Mother Cancer Father at 40 from liver cancer COPD Sister Skin Cancer Brother ALLERGIES: ALLERGIES No Known Allergies MEDICATIONS: Current Outpatient Medications Medication Sig amoxicillin (AMOXIL) 500 mg capsule Take 500 mg by mouth as needed. Prior to dental procedures Cholecalciferol, Vitamin D3, (VITAMIN D-3) 10 mcg (400 unit) chew Take 1 tablet by mouth once daily. pediatric multivitamin no.76 (FLINTSTONES COMPLETE ORAL) Take 2 tablets by mouth once daily. ondansetron (ZOFRAN) 8 mg tablet Take 8 mg by mouth every 8 hours as needed for nausea/vomiting. ascorbic acid (VITAMIN C ORAL) Take by mouth once daily. cyanocobalamin, vitamin B-12, (VITAMIN B-12 ORAL) Take by mouth once daily. hydrOXYchloroQUINE (PLAQUENIL) 200 mg tablet Take 200 mg by mouth once daily. aspirin 81 mg chewable tablet Take 162 mg by mouth once daily. Current Facility-Administered Medications Medication Dose Route Frequency perflutren lipid microspheres 1.3 mL in NaCl (PF) 0.9% 10 mL injection (DEFINITY) INTRAVENOUS DIRECTED PRN sodium chloride 0.9 % (flush) 10 mL (BD POSIFLUSH) 10 mL INTRAVENOUS DIRECTED PRN REVIEW OF SYSTEMS: GENERAL: negative for: fevers, chills, and change in weight HEENT: negative for: headaches, hearing loss, difficulty swallowing, visual changes, nose bleeds, dentures, own teeth SKIN: rashes, lesions, and ulcers RESPIRATORY: SEE HPI CARDIOVASCULAR: See HPI GASTROINTESTINAL: negative for: abdominal pain, nausea, vomiting, difficulty or painful swallowing, and melanotic stools GENITOURINARY: negative for: dysuria, frequency, nocturia, and male potency MUSCULOSKELETAL: negative for: joint pain, joint swelling, muscle pain or myalgias, and pain with walking NEUROLOGIC: negative for: numbness, tingling, and sensation of pins and needles HEMATOLOGY: negative for: bruising easily, prolonged bleeding, anemia, and cancer ENDOCRINE: negative for: cold or heat intolerance, polyuria, polydipsia, goiter, diabetes, and thyroid disease PSYCH: negative for: sleep disturbance, mood disorders, and recent psychosocial stressors PHYSICAL EXAMINATION: BP 139/90 Pulse 66 Resp 16 Ht 5' 2.99 (1.60m) Wt 120 lb 6.4 oz (54.6kg) SpO2 99% BMI 21.33 kg/(m2). General: Well appearing, in no acute distress, speaking in complete sentences. Skin: No clubbing, no cyanosis. Head/Eyes: Extra ocular movements intact Mouth: Teeth in good repa (more content not included)... Normal [facility] ECHOon 08-29-2023 Echocardiography Echocardiography Report: Transthoracic Echo [facility] BETH-2 Date of service: 08/29/2023 12:40:11 PM OPERATOR Ordering physician: TOÑA GARCIA Indication: s/p V-i-V TAVR (11/29/2021) Technologist: Elizabeth Miller Interpreting physician: Vik Jensen MD, PhD PATIENT: Name: MRS. SWATHI VALLADARES : 1955 Age: 68 years Gender: F History of valvular heart disease. Previous cardiovascular interventions: TAVR (11/29/2021) Aortic valve replacement (2018) Primary rhythm: sinus. Height: 160.00 cm BSA: 1.58 m Weight: 56.34 kg BMI: 22.0 kg/m Heart rate 66 bpm Blood pressure 167/87 mmHg Color Doppler was utilized to interrogate the cardiac valves assessed and spectral Doppler was utilized to determine the flow velocities and pressure gradients reported in this exam. Myocardial strain analysis was performed in this exam to aid in the assessment of cardiac function. MEASUREMENTS: Value Indexed Normal Max aortic dimension 3.7 cm Ao < 3.8 Left atrial volume 37 ml (biplane A-L) 24 ml/m Estephania <= 34 LV ID (diastole) 3.8 cm (2D) 2.40 cm/m LV ID (systole) 2.4 cm (2D) 1.52 cm/m IVS, leaflet tips 1.6 cm (2D) Posterior wall thickness 0.9 cm (2D) Left ventricular mass 163 g (2D) 103 g/m Global peak long strain -21.7 % LV stroke volume 55 ml (2D biplane) LVOT stroke volume 111 ml 70 ml/m LV end diastolic volume 81 ml (2D biplane) 51.4 ml/m 29<=EDVi<62 LV end systolic volume 27 ml (2D biplane) 16.8 ml/m Ejection Fraction 67 % (2D biplane) EF > 54 FINDINGS: LEFT VENTRICLE The left ventricle is normal in size. There is moderate upper septal left ventricular hypertrophy. Left ventricular systolic function is normal. Global LV myocardial strain is normal. Grade I left ventricular diastolic dysfunction. Mitral annular lateral E/e': 6.5. Mitral annular septal E/e': 12.3. Wall Motion: All scored segments are normal. RIGHT VENTRICLE The right ventricle is normal in size. Right ventricular systolic function is normal. RV systolic tissue Doppler velocity is 13.2 cm/s. Tricuspid annular displacement is 1.5 cm. Estimated right ventricular systolic pressure is likely underestimated due to a weak or incomplete tricuspid regurgitation signal and is, at least, 24 mmHg consistent with normal pulmonary artery pressures. Estimated right atrial pressure is 3 mmHg based on IVC assessment. LEFT ATRIUM The left atrial cavity is normal in size. Pulmonary Veins: The pulmonary venous pattern showed normal systolic flow. RIGHT ATRIUM The right atrial cavity is normal in size. Inferior Vena Cava: The inferior vena cava appears normal measuring 1.7 cm. The vessel decreases greater than 50 percent with inspiration. MITRAL VALVE There is trace mitral valve regurgitation. There is mild thickening. The pressure half time is 64 msec. The peak mitral E/A ratio is 0.71. The average mitral E/e' ratio is 9.4. The mitral flow deceleration time is 219 msec. TRICUSPID VALVE There is mild (1+) tricuspid valve regurgitation. There is no thickening. The hepatic venous pattern showed normal systolic flow. AORTIC VALVE Peterson S3 prosthetic valve size #23. There is trace aortic valve regurgitation. The peak gradient is 40 mmHg (peak velocity = 317.0 cm/s). The mean gradient is 24 mmHg. The LVOT mean velocity is 85.6 cm/s. The LVOT diameter is 2.3 cm. The aortic VTI is 71.6 cm. The mean velocity in the aortic valve is 231.0 cm/s. The dimensionless valve index is 0.37. AV area is 1.55 cm (0.98 cm /m ) by continuity, VTI. The LVOT stroke volume index is 70 ml/m . PULMONIC VALVE There is trace (trace - 1+) pulmonic valve regurgitation. There is no thickening. AORTA The visualized aorta is normal in size. Measurements - Mid ascending aorta 3.7 cm. Distal ascending aorta 3.6 cm. PULMONARY ARTERIES The pulmonary arteries are unseen or not interrogated. INTERATRIAL SEPTUM There is no evidence of intracardiac shunting as detected by Doppler. INTERVENTRICULAR SEPTUM There is abnormal motion of the interventricular septum secondary to prior cardiac surgery. There is no flow through the interventricular septum as detected by Doppler. PERICARDIUM There is no pericardial effusion. CONCLUSIONS: - Exam indication: s/p V-i-V TAVR (11/29/2021) - The left ventricle is normal in size. There is moderate upper septal left ventricular hypertrophy. Left ventricular systolic function is normal. EF = 67 5% (2D biplane) Grade I left ventricular diastolic dysfunction. - The right ventricle is normal in size. Right ventricular systolic function is normal. - Peterson S3 prosthetic aortic valve (size #23). There is trace aortic valve regurgitation. The peak gradient is 40 mmHg, the mean gradient is 24 mmHg and the dimensionless valve index is 0.37. Prior pk/mn gradients 25/14 mmHg. - Estimated right ventricular systolic pressure is likely under (more content not included)... Normal [facility] CNPNon 07-31-2023 CNPN Telephone (CATHMN) SWATHI VALLADARES ([id number]) 1955 F Date Time Provider Department 07/31/23 TOÑA GARCIA CATHMN During your visit today, we recorded the following information about you: IrajclovisChristopheCeasar Tre 07/31/2023 9:36 AM Signed Office informed pt the doctor will not be in the office on 08/01 and has been rescheduled to 08/29. Pt will call office if she will need to rescedule. Pt thanked office for the call Allergies As of Date: 07/31/2023 (No Known Allergies) Date Reviewed: 03/17/2023 Reviewed by: Eric Sol MD - Fully Assessed Reason for Visit: Appointment Rescheduled [1024] Prescriptions as of 07/31/2023 - ascorbic acid (VITAMIN C ORAL) Take by mouth once daily. - cyanocobalamin, vitamin B-12, (VITAMIN B-12 ORAL) Take by mouth once daily. - hydrOXYchloroQUINE (PLAQUENIL) 200 mg tablet TAKE 1 TABLET BY MOUTH TWICE DAILY WITH FOOD AND YEARLY EYE EXAM - aspirin 81 mg chewable tablet Take 162 mg by mouth once daily. - therapeutic multivitamin (THERA VITAMIN) tablet Take 1 tablet by mouth daily with breakfast. Facility-Administered Medications as of 07/31/2023 - perflutren lipid microspheres 1.3 mL in NaCl (PF) 0.9% 10 mL injection (DEFINITY) - sodium chloride 0.9 % (flush) 10 mL (BD POSIFLUSH) Problem List As Of Date 07/31/2023 Noted Resolved Discharge planning issues [Z02.9] 03/12/2018 Preop testing [Z01.818] 03/12/2018 03/18/2018 (aortic stenosis) [I35.0] 03/13/2018 Atelectasis [J98.11] 03/13/2018 Postoperative pain [G89.18] 03/13/2018 Postoperative hypovolemia [E89.89, E86.1] 03/13/2018 03/15/2018 Postoperative hypertension [I97.3] 03/15/2018 Fluid overload [E87.70] 03/15/2018 Transition of care performed with sharing of cl*03/16/2018 Tachycardia [R00.0] 03/17/2018 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] 03/17/2018 Abdominal mass [R19.00] 09/12/2021 Pneumonia due to infectious organism [J18.9] 10/17/2021 Congestive heart failure (HCC) [I50.9] 10/17/2021 Chronic cough [R05.3] 10/17/2021 Diverticulitis [K57.92] 10/17/2021 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] 11/28/2021 Severe aortic stenosis [I35.0] 11/29/2021 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/29/2021 GERD (gastroesophageal reflux disease) [K21.9] 04/22/2022 CVA (cerebral vascular accident) (HCC) [I63.9] 04/22/2022 COPD (chronic obstructive pulmonary disease) (H*04/22/2022 Lupus (HCC) [M32.9] 04/22/2022 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 04/24/2022 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, R19.7] 05/16/2022 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 Sent [employer] message. Allergies As of Date: 07/01/2023 (No Known Allergies) Date Reviewed: 03/17/2023 Reviewed by: Eric Sol MD - Fully Assessed Reason for Visit: Appointment Rescheduled [1024] Prescriptions as of 07/01/2023 - ascorbic acid (VITAMIN C ORAL) Take by mouth once daily. - cyanocobalamin, vitamin B-12, (VITAMIN B-12 ORAL) Take by mouth once daily. - hydrOXYchloroQUINE (PLAQUENIL) 200 mg tablet TAKE 1 TABLET BY MOUTH TWICE DAILY WITH FOOD AND YEARLY EYE EXAM - aspirin 81 mg chewable tablet Take 162 mg by mouth once daily. - therapeutic multivitamin (THERA VITAMIN) tablet Take 1 tablet by mouth daily with breakfast. Facility-Administered Medications as of 07/01/2023 - perflutren lipid microspheres 1.3 mL in NaCl (PF) 0.9% 10 mL injection (DEFINITY) - sodium chloride 0.9 % (flush) 10 mL (BD POSIFLUSH) - perflutren lipid microspheres 1.3 mL in NaCl (PF) 0.9% 10 mL injection (DEFINITY) - sodium chloride 0.9 % (flush) 10 mL (BD POSIFLUSH) Problem List As Of Date 07/01/2023 Noted Resolved Discharge planning issues [Z02.9] 03/12/2018 Preop testing [Z01.818] 03/12/2018 03/18/2018 (aortic stenosis) [I35.0] 03/13/2018 Atelectasis [J98.11] 03/13/2018 Postoperative pain [G89.18] 03/13/2018 Postoperative hypovolemia [E89.89, E86.1] 03/13/2018 03/15/2018 Postoperative hypertension [I97.3] 03/15/2018 Fluid overload [E87.70] 03/15/2018 Transition of care performed with sharing of cl*03/16/2018 Tachycardia [R00.0] 03/17/2018 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] 03/17/2018 Abdominal mass [R19.00] 09/12/2021 Pneumonia due to infectious organism [J18.9] 10/17/2021 Congestive heart failure (HCC) [I50.9] 10/17/2021 Chronic cough [R05.3] 10/17/2021 Diverticulitis [K57.92] 10/17/2021 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] 11/28/2021 Severe aortic stenosis [I35.0] 11/29/2021 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/29/2021 GERD (gastroesophageal reflux disease) [K21.9] 04/22/2022 CVA (cerebral vascular accident) (HCC) [I63.9] 04/22/2022 COPD (chronic obstructive pulmonary disease) (H*04/22/2022 Lupus (HCC) [M32.9] 04/22/2022 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 04/24/2022 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, R19.7] 05/16/2022 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 Left detailed vm. Allergies As of Date: 06/30/2023 (No Known Allergies) Date Reviewed: 03/17/2023 Reviewed by: Eric Sol MD - Fully Assessed Reason for Visit: Appointment Rescheduled [1024] Prescriptions as of 06/30/2023 - ascorbic acid (VITAMIN C ORAL) Take by mouth once daily. - cyanocobalamin, vitamin B-12, (VITAMIN B-12 ORAL) Take by mouth once daily. - hydrOXYchloroQUINE (PLAQUENIL) 200 mg tablet TAKE 1 TABLET BY MOUTH TWICE DAILY WITH FOOD AND YEARLY EYE EXAM - aspirin 81 mg chewable tablet Take 162 mg by mouth once daily. - therapeutic multivitamin (THERA VITAMIN) tablet Take 1 tablet by mouth daily with breakfast. Facility-Administered Medications as of 06/30/2023 - perflutren lipid microspheres 1.3 mL in NaCl (PF) 0.9% 10 mL injection (DEFINITY) - sodium chloride 0.9 % (flush) 10 mL (BD POSIFLUSH) - perflutren lipid microspheres 1.3 mL in NaCl (PF) 0.9% 10 mL injection (DEFINITY) - sodium chloride 0.9 % (flush) 10 mL (BD POSIFLUSH) Problem List As Of Date 06/30/2023 Noted Resolved Discharge planning issues [Z02.9] 03/12/2018 Preop testing [Z01.818] 03/12/2018 03/18/2018 (aortic stenosis) [I35.0] 03/13/2018 Atelectasis [J98.11] 03/13/2018 Postoperative pain [G89.18] 03/13/2018 Postoperative hypovolemia [E89.89, E86.1] 03/13/2018 03/15/2018 Postoperative hypertension [I97.3] 03/15/2018 Fluid overload [E87.70] 03/15/2018 Transition of care performed with sharing of cl*03/16/2018 Tachycardia [R00.0] 03/17/2018 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] 03/17/2018 Abdominal mass [R19.00] 09/12/2021 Pneumonia due to infectious organism [J18.9] 10/17/2021 Congestive heart failure (HCC) [I50.9] 10/17/2021 Chronic cough [R05.3] 10/17/2021 Diverticulitis [K57.92] 10/17/2021 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] 11/28/2021 Severe aortic stenosis [I35.0] 11/29/2021 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/29/2021 GERD (gastroesophageal reflux disease) [K21.9] 04/22/2022 CVA (cerebral vascular accident) (HCC) [I63.9] 04/22/2022 COPD (chronic obstructive pulmonary disease) (H*04/22/2022 Lupus (HCC) [M32.9] 04/22/2022 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 04/24/2022 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, R19.7] 05/16/2022 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 Results obtained with different methods or kits cannot be used interchangeably. Performed By: #### 1 952-1, 2885-2 ####[facility] LABCLIA [id number] [address] [facility] CBC W Auto Differential pane l (Bld)on 06-19-2023 Basophils (Bld) [#/Vol] 10*3/uL Normal <0.11 [facility] Comment on above: Order Comment: Speci men Type: BLOOD SPECIMENOrdering Facility: [facility] Address: [address] [address] Performed By: #### 5 7021-8 ####[facility] LABCLIA [id number] [place] [address] Basophils/100 WBC (Bld) 0.2 % Normal [facility] Comment on above: Order Comment: Speci men Type: BLOOD SPECIMENOrdering Facility: [facility] Address: [address] [address] Performed By: #### 5 7021-8 ####[facility] LABCLIA [id number] [place] [address] Differential cell count method Nom (Bld) Auto Normal [facility] Comment on above: Order Comment: Speci men Type: BLOOD SPECIMENOrdering Facility: [facility] Address: [address] [place] [address] Performed By: #### 5 7021-8 ####[facility] LABCLIA [id number] [place] [address] Eosinophils (Bld) [#/Vol] 0.15 10*3/uL Normal <0.46 [facility] Comment on above: Order Comment: Speci men Type: BLOOD SPECIMENOrdering Facility: [facility] Address: [address] [place] [address] Performed By: #### 5 7021-8 ####[facility] LABCLIA [id number] [place] [address] Eosinophils/100 WBC (Bld) 2.7 % Normal [facility] Comment on above: Order Comment: Speci men Type: BLOOD SPECIMENOrdering Facility: [facility] Address: [address] [place] [address] Performed By: #### 5 7021-8 ####[facility] LABCLIA [id number] [place] [address] Erythrocyte distribution width (RBC) [Ratio] 12.4 % Normal 11.5-15.0 [facility] Comment on above: Order Comment: Speci men Type: BLOOD SPECIMENOrdering Facility: [facility] Address: [address] [place] [address] Performed By: #### 5 7021-8 ####[facility] LABCLIA [id number] [place] [address] Hematocrit (Bld) [Volume fraction] 40.8 % Normal 36.0-46.0 [facility] Comment on above: Order Comment: Speci men Type: BLOOD SPECIMENOrdering Facility: [facility] Address: [address] [place] [address] Performed By: #### 5 7021-8 ####[facility] LABCLIA [id number] [place] [address] Hemoglobin (Bld) [Mass/Vol] 13.2 g/dL Normal 11.5-15.5 [facility] Comment on above: Order Comment: Speci men Type: BLOOD SPECIMENOrdering Facility: [facility] Address: [address] [place] [address] Performed By: #### 5 7021-8 ####[facility] LABCLIA [id number] [place] [address] Immature granulocytes (Bld) [#/Vol] 10*3/uL Normal <0.10 [facility] Comment on above: Order Comment: Speci men Type: BLOOD SPECIMENOrdering Facility: [facility] Address: [address] [place] [address] Performed By: #### 5 7021-8 ####[facility] LABCLIA [id number] [place] [address] Immature granulocytes/100 WBC (Bld) 0.4 % Normal [facility] Comment on above: Order Comment: Speci men Type: BLOOD SPECIMENOrdering Facility: [facility] Address: [address] [place] [address] Performed By: #### 5 7021-8 ####[facility] LABCLIA [id number] [place] [address] Lymphocytes (Bld) [#/Vol] 0.43 10*3/uL Low 1.00-4.00 [facility] Comment on above: Order Comment: Speci men Type: BLOOD SPECIMENOrdering Facility: [facility] Address: [address] [place] [address] Performed By: #### 5 7021-8 ####[facility] LABCLIA [id number] [place] [address] Lymphocytes/100 WBC (Bld) 7.7 % Normal [facility] Comment on above: Order Comment: Speci men Type: BLOOD SPECIMENOrdering Facility: [facility] Address: [address] [place] [address] Performed By: #### 5 7021-8 ####[facility] LABCLIA [id number] [place] [address] MCH (RBC) [Entitic mass] 29.9 pg Normal 26.0-34.0 [facility] Comment on above: Order Comment: Speci men Type: BLOOD SPECIMENOrdering Facility: [facility] Address: [address] [place] [address] Performed By: #### 5 7021-8 ####[facility] LABIA [id number] [place] [address] MCHC (RBC) [Mass/Vol] 32.4 g/dL Normal 30.5-36.0 [facility] Comment on above: Order Comment: Speci men Type: BLOOD SPECIMENOrdering Facility: [facility] Address: [address] [place] [address] Performed By: #### 5 7021-8 ####[facility] LABCLIA [id number] [place] [address] MCV (RBC) [Entitic vol] 92.5 fL Normal 80.0-100.0 [facility] Comment on above: Order Comment: Speci men Type: BLOOD SPECIMENOrdering Facility: [facility] Address: [address] [place] [address] Performed By: #### 5 7021-8 ####[facility] LABIA [id number] [place] [address] Monocytes (Bld) [#/Vol] 0.35 10*3/uL Normal <0.87 [facility] Comment on above: Order Comment: Speci men Type: BLOOD SPECIMENOrdering Facility: [facility] Address: [address] [address] Performed By: #### 5 7021-8 ####[facility] LABCLIA [id number] [place] [address] Monocytes/100 WBC (Bld) 6.3 % Normal [facility] Comment on above: Order Comment: Speci men Type: BLOOD SPECIMENOrdering Facility: [facility] Address: [address] [address] Performed By: #### 5 7021-8 ####[facility] LABCLIA [id number] [place] [address] Neutrophils (Bld) [#/Vol] 4.62 10*3/uL Normal 1.45-7.50 [facility] Comment on above: Order Comment: Speci men Type: BLOOD SPECIMENOrdering Facility: [facility] Address: [address] [address] Performed By: #### 5 7021-8 ####[facility] LABCLIA [id number] [place] [address] Neutrophils/100 WBC (Bld) 82.7 % Normal [facility] Comment on above: Order Comment: Speci men Type: BLOOD SPECIMENOrdering Facility: [facility] Address: [address] [place] [address] Performed By: #### 5 7021-8 ####[facility] LABCLIA [id number] [place] [address] Nucleated RBC (Bld) [#/Vol] 10*3/uL Normal <0.01 [facility] Comment on above: Order Comment: Speci men Type: BLOOD SPECIMENOrdering Facility: [facility] Address: [address] [place] [address] Performed By: #### 5 7021-8 ####[facility] LABCLIA [id number] [place] [address] Nucleated RBC/100 WBC (Bld) [Ratio] 0.0 /100 WBC Normal [facility] Comment on above: Order Comment: Speci men Type: BLOOD SPECIMENOrdering Facility: [facility] Address: [address] [place] [address] Performed By: #### 5 7021-8 ####[facility] LABCLIA [id number] [place] [address] Platelet mean volume (Bld) [Entitic vol] 9.1 fL Normal 9.0-12.7 [facility] Comment on above: Order Comment: Speci men Type: BLOOD SPECIMENOrdering Facility: [facility] Address: [address] [place] [address] Performed By: #### 5 7021-8 ####[facility] LABCLIA [id number] [place] [address] Platelets (Bld) [#/Vol] 184 10*3/uL Normal 150-400 [facility] Comment on above: Order Comment: Speci men Type: BLOOD SPECIMENOrdering Facility: [facility] Address: [address] [place] [address] Performed By: #### 5 7021-8 ####[facility] LABCLIA [id number] [place] [address] RBC (Bld) [#/Vol] 4.41 10*6/uL Normal 3.90-5.20 [facility] Comment on above: Order Comment: Speci men Type: BLOOD SPECIMENOrdering Facility: [facility] Address: [address] [place] [address] Performed By: #### 5 7021-8 ####[facility] LABCLIA [id number] [place] [address] WBC (Bld) [#/Vol] 5.58 10*3/uL Normal 3.70-11.00 [facility] Comment on above: Order Comment: Speci men Type: BLOOD SPECIMENOrdering Facility: [facility] Address: [address] [place] [id number] Performed By: #### 5 7021-8 ####[facility] LABCLIA [id number] [place] [address] Calcium.ionized [Moles/Vol]o n 06-19-2023 Calcium.ionized (Bld) [Mass/Vol] 1.28 mmol/L Normal 1.08-1.30 [facility] Comment on above: Order Comment: Speci men Type: BLOOD SPECIMENOrdering Facility: [facility] Address: [address] [address] Performed By: #### 1 995-0 ####[facility] LABIA [id number] [address] [facility] Calcium.ionized adjusted to pH 7.4 (Bld) [Moles/Vol] 1.28 mmol/L Normal 1.08-1.30 [facility] Comment on above: Order Comment: Speci men Type: BLOOD SPECIMENOrdering Facility: [facility] Address: [address] [place] [address] Performed By: #### 1 995-0 ####[facility] LABIA [id number] [address] [facility] Comprehensive metabolic 2000 panelon 06-19-2023 Albumin [Mass/Vol] 4.1 g/dL Normal 3.9-4.9 [facility] Comment on above: Order Comment: Speci men Type: BLOOD SPECIMENOrdering Facility: [facility] Address: [address] [address] Performed By: #### 3 084-1, 2532-0, 2777-1, 38933-6 ####[facility] LABCLIA [id number] [place] [address] ALP [Catalytic activity/Vol] 104 U/L Normal 34-123 [facility] Comment on above: Order Comment: Speci men Type: BLOOD SPECIMENOrdering Facility: [facility] Address: [address] [address] Performed By: #### 3 084-1, 2532-0, 2777-1, 27280-7 ####[facility] LABIA [id number] [place] [address] ALT [Catalytic activity/Vol] 14 U/L Normal 7-38 [facility] Comment on above: Order Comment: Speci men Type: BLOOD SPECIMENOrdering Facility: [facility] Address: [address] [address] Performed By: #### 3 084-1, 2532-0, 2777-1, 57101-8 ####[facility] LABIA [id number] [place] [address] Anion gap [Moles/Vol] 9 mmol/L Normal 9-18 [facility] Comment on above: Order Comment: Speci men Type: BLOOD SPECIMENOrdering Facility: [facility] Address: [address] [address] Performed By: #### 3 084-1, 2532-0, 2777-1, 09787-8 ####[facility] LABIA [id number] [place] [address] AST [Catalytic activity/Vol] 20 U/L Normal 13-35 [facility] Comment on above: Order Comment: Speci men Type: BLOOD SPECIMENOrdering Facility: [facility] Address: [address] [address] Performed By: #### 3 084-1, 2532-0, 2777-1, 54547-3 ####[facility] LABIA [id number] [place] [address] Bilirubin [Mass/Vol] 0.6 mg/dL Normal 0.2-1.3 [facility] Comment on above: Order Comment: Speci men Type: BLOOD SPECIMENOrdering Facility: [facility] Address: [address] [address] Performed By: #### 3 084-1, 2532-0, 277-1, 71921-1 ####[facility] LABCLIA [id number] [place] [address] Calcium [Mass/Vol] 9.7 mg/dL Normal 8.5-10.2 [facility] Comment on above: Order Comment: Speci men Type: BLOOD SPECIMENOrdering Facility: [facility] Address: [address] [place], [place] [address] Performed By: #### 3 084-1, 2532-0, 2776-1, 65197-1 ####[facility] LABCLIA [id number] [place] [address] Chloride [Moles/Vol] 104 mmol/L Normal 97-105 [facility] Comment on above: Order Comment: Speci men Type: BLOOD SPECIMENOrdering Facility: [facility] Address: [address] [place], [place] [address] Performed By: #### 3 084-1, 2532-0, 1, 85698-3 ####[facility] LABIA [id number] [place] [address] CO2 [Moles/Vol] 26 mmol/L Normal 22-30 [facility] Comment on above: Order Comment: Speci men Type: BLOOD SPECIMENOrdering Facility: [facility] Address: [address] [place] [address] Performed By: #### 3 084-1, 2532-0, 2776-1, 03770-0 ####[facility] LABCLIA [id number] [place] [address] Creatinine [Mass/Vol] 0.77 mg/dL Normal 0.58-0.96 [facility] Comment on above: Order Comment: Speci men Type: BLOOD SPECIMENOrdering Facility: [facility] Address: [address] [place], [place] [address] Performed By: #### 3 084-1, 2532-0, 2777-, 90220-9 ####[facility] LABCLIA [id number] [place] [address] Creatinine and Glomerular filtration rate.predicted panel (S/P/Bld) 84 mL/min/1.73m??? Normal >=60 [facility] Comment on above: Order Comment: Shamar brothers Type: BLOOD SPECIMENOrdering Facility: [facility] Address: [address] [place] [address] Result Comment: Fatmata mated Glomerular Filtration Rate (eGFR) is calculated using the 2020 CKD-EPI creatinine equation. This equation utilizes serum creatinine, sex, and age as parameters. The creatinine assay has traceable calibration to isotope dilution-mass spectrometry. Refer to KDIGO guidelines for clinical interpretation. In patients with unstable renal function, e.g. those with acute kidney injury, the eGFR may not accurately reflect actual GFR. Performed By: #### 3 084-1, 2532-0, 2777-, 84054-3 ####[facility] LABCLIA [id number] [place] [address] Glucose [Mass/Vol] 134 mg/dL High 74-99 [facility] Comment on above: Order Comment: Shamar brothers Type: BLOOD SPECIMENOrdering Facility: [facility] Address: [address] [place] [address] Result Comment: The [place] Diabetes Association (ADA) provides guidance for cutoff values for fasting glucose and random glucose. The ADA defines fasting as no caloric intake for at least 8 hours. Fasting plasma glucose results between 100 to 125 mg/dL indicate increased risk for diabetes (prediabetes). Fasting plasma glucose results greater than or equal to 126 mg/dL meet the criteria for diagnosis of diabetes. In the absence of unequivocal hyperglycemia, results should be confirmed by repeat testing. In a patient with classic symptoms of hyperglycemia or hyperglycemic crisis, random plasma glucose results greater than or equal to 200 mg/dL meet the criteria for diagnosis of diabetes. Reference: Standards of Medical Care in Diabetes 2016, [place] Diabetes Association. Diabetes Care. 2016.39(Suppl 1). Performed By: #### 3 084-1, 2532-0, 2776-10, 77822-7 ####[facility] LABCLIA [id number] [place] [address] Potassium [Moles/Vol] 3.6 mmol/L Low 3.7-5.1 [facility] Comment on above: Order Comment: Speci men Type: BLOOD SPECIMENOrdering Facility: [facility] Address: [address] [place] [address] Performed By: #### 3 084-1, 2532-0, 2776-10, 93744-6 ####[facility] LABCLIA [id number] [place] [address] Protein [Mass/Vol] 9.8 g/dL High 6.3-8.0 [facility] Comment on above: Order Comment: Speci men Type: BLOOD SPECIMENOrdering Facility: [facility] Address: [address] [place] [address] Performed By: #### 3 084-1, 2-0, 2776-10, ####[facility] LABIA [id number] [place] [address] Sodium [Moles/Vol] 139 mmol/L Normal 136-144 [facility] Comment on above: Order Comment: Speci men Type: BLOOD SPECIMENOrdering Facility: [facility] Address: [address] [place] [address] Performed By: #### 3 084-1, 2532-0, 2776-10, ####[facility] LABCLIA [id number] [place] [address] Urea nitrogen [Mass/Vol] 16 mg/dL Normal 7-21 [facility] Comment on above: Order Comment: Speci men Type: BLOOD SPECIMENOrdering Facility: [facility] Address: [address] [place] [address] Performed By: #### 3 084-1, 2-0, 2776-10, 67500-3 ####[facility] LABCLIA [id number] [place] [address] IMMUNOFIXATION SCREEN, SERUM on 06-19-2023 MPA RESULT No M protein is identified. Normal No M protein is identified. [facility] Comment on above: Order Comment: Speci men Type: BLOOD SPECIMENOrdering Facility: [facility] Address: [address] [place] [address] Performed By: #### I FESC ####[facility] LABCLIA [id number] [address] OF [place] STAFF REVIEW (MPA) Reviewed by Maricarmen Branch MD Normal [facility] Comment on above: Order Comment: Speci men Type: BLOOD SPECIMENOrdering Facility: [facility] Address: [address] [place] [address] Performed By: #### I FES ####[facility] LABCLIA [id number] [place] [address] [place] IMMUNOGLOBULINS GAMon 2022 IgA [Mass/Vol] 449 mg/dL High 70-400 [facility] Comment on above: Order Comment: Speci men Type: BLOOD SPECIMENOrdering Facility: [facility] Address: [address] [place] [address] Performed By: #### S ERIMM ####[facility] LABCLIA [id number] [place] [address] [place] IgG [Mass/Vol] 4496 mg/dL High 700-1600 [facility] Comment on above: Order Comment: Speci men Type: BLOOD SPECIMENOrdering Facility: [facility] Address: [address] [place] [address] Performed By: #### S ERIMM ####[facility] LABCLIA [id number] [place] [address] [place] IgM [Mass/Vol] 68 mg/dL Normal 40-230 [facility] Comment on above: Order Comment: Speci men Type: BLOOD SPECIMENOrdering Facility: [facility] Address: [address] [place] [address] Performed By: #### S HARRIETM ####[facility] LABCLIA [id number] [place] [address] [place] KAPPA/BEACH,FREE,SERon 2022 Immunoglobulin light chains.kappa.free (S) [Mass/Vol] 69.6 mg/L High 3.3-19.4 [facility] Comment on above: Order Comment: Speci men Type: BLOOD SPECIMENOrdering Facility: [facility] Address: [address] [place] [address] Result Comment: Rare ly, increased serum free light chains levels may not be detected or accurately quantified due to prozone phenomenon or in high viscosity samples using this immunoturbidimetric assay. Correlation with other laboratory results and clinical findings is recommended. The [place] Free Light Chain was performed using the Binding Site Optilite immunoturbidimetric method. Result obtained with different assay methods or kits cannot be used interchangeably. Performed By: #### K LFRS ####[facility] LABIA [id number] [place] [address] [place] Immunoglobulin light chains.kappa/Immunogl obulin light chains.lambda (S) [Mass ratio] 2.27 High 0.26-1.65 [facility] Comment on above: Order Comment: Speci men Type: BLOOD SPECIMENOrdering Facility: [facility] Address: [address] [address] Performed By: #### K LFRS ####[facility] LABIA [id number] [place] [address] [place] Immunoglobulin light chains.lambda.free [Mass/Vol] 30.7 mg/L High 5.7-26.3 [facility] Comment on above: Order Comment: Speci men Type: BLOOD SPECIMENOrdering Facility: [facility] Address: [address] [address] Result Comment: Rare ly, increased serum free light chains levels may not be detected or accurately quantified due to prozone phenomenon or in high viscosity samples using this immunoturbidimetric assay. Correlation with other laboratory results and clinical findings is recommended. The [place] Free Light Chain was performed using the Binding Site Optilite immunoturbidimetric method. Result obtained with different assay methods or kits cannot be used interchangeably. Performed By: #### K LFRS ####[facility] LABCLIA [id number] [place] [address] [place] LDH SerPl-cCncon 06-19-2023 LDH [Catalytic activity/Vol] 213 U/L Normal 135-214 [facility] Comment on above: Order Comment: Speci men Type: BLOOD SPECIMENOrdering Facility: [facility] Address: [address] [place] [address] Performed By: #### 3 084-1, 2532-0, 2777-1, 97018-6 ####[facility] LABCLIA [id number] [address] [id number] PROTEIN ELECTROPHORESIS SERU M (P)on 06-19-2023 Albumin [Mass/Vol] 4.62 g/dL Normal 3.43-5.41 [facility] Comment on above: Order Comment: Speci men Type: BLOOD SPECIMEN [facility]: [facility] Address: [address] [place] [address] Performed By: #### 2 276-4, 1951-10, 90589-4 #### [facility] CLIA [id number] [address] [place] [address] [place] Alpha 1 globulin Elph [Mass/Vol] 0.24 g/dL Normal 0.18-0.43 [facility] Comment on above: Order Comment: Speci men Type: BLOOD SPECIMEN [facility]ing [facility]: [facility] Address: [address] [place] [address] Performed By: #### 2 276-4, 1951-10, 49470-2 #### [facility] CLIA [id number] [address] [place] [address] [place] Alpha 2 globulin Elph [Mass/Vol] 0.32 g/dL Low 0.42-0.98 [facility] Comment on above: Order Comment: Speci men Type: BLOOD SPECIMEN [facility]ing [facility]: [facility] Address: [address] [place] [address] Performed By: #### 2 276-4, 1951-10, #### [facility] CLIA [id number] [facility] [place] [address] [place] Beta globulin Elph [Mass/Vol] 0.73 g/dL Normal 0.61-1.17 [facility] Comment on above: Order Comment: Speci men Type: BLOOD SPECIMEN [facility]ing [facility]: [facility] Address: [address] [place] [address] Performed By: #### 2 276-4, 1951-10, #### [facility] CLIA [id number] [address] [place] [address] [place] Gamma globulin Elph [Mass/Vol] 3.89 g/dL High 0.53-1.51 [facility] Comment on above: Order Comment: Speci men Type: BLOOD SPECIMEN [facility]ing [facility]: [facility] Address: [address] [place] [address] Performed By: #### 2 276-4, 1951-10, #### [facility] CLIA [id number] [address] [place], [place] [address] [place] M-PROTEIN LOCATION Normal [facility] Comment on above: Order Comment: Speci men Type: BLOOD SPECIMEN [facility]ing [facility]: [facility] Address: [address] [place] [address] Result Comment: Not Applicable. Performed By: #### 2 276-4, 1951-10, #### [facility] CLIA [id number] [address] [place], [place] [address] [place] Protein Fractions [Interp] No definitive M protein is identified on protein electrophoresis. Normal No definitive M protein is identified on protein electrophore sis. [facility] Comment on above: Order Comment: Speci men Type: BLOOD SPECIMEN [facility] Address: [address] [place] [address] Performed By: #### 2 276-4, 1951-10, 35644-9 #### [facility] CLIA [id number] [address] [place] [address] [place] Protein.monoclonal Elph [Mass/Vol] 0.00 g/dL Normal <=0.00 [facility] Comment on above: Order Comment: Speci men Type: BLOOD SPECIMEN [facility]: [facility] Address: [address] [place] [address] Performed By: #### 2 276-4, 1951-10, 63680-8 #### [facility] CLIA [id number] [address] [place] [address] [place] SPE STAFF REVIEW Reviewed by Maricarmen Branch MD [facility] Comment on above: Order Comment: Speci men Type: BLOOD SPECIMEN [facility] Address: [address] [place] [address] Performed By: #### 2 276-4, 1951-10, #### [facility] CLIA [id number] [address] [place] [address] [place] Phosphate SerPl-mCncon 06-19 Phosphate [Mass/Vol] 2.9 mg/dL Normal 2.7-4.8 [facility] Comment on above: Order Comment: Speci men Type: BLOOD SPECIMENOrdering Facility: [facility] Address: [address] [place], [place] [id number] Performed By: #### 3 084-1, 2532-0, 2777-1, 99247-0 ####[facility] LABCLIA [id number] [place] [address] Prot SerPl-mCncon 06-19-2023 Protein [Mass/Vol] 9.2 g/dL High 6.3-8.0 [facility] trista [facility] Comment on above: Order Comment: Speci men Type: BLOOD SPECIMENOrdering Facility: [facility] Address: [address] [place], [place] [id number] Performed By: #### 1 952-1, 2885-2 ####[facility] LABCLIA [id number] [facility] [address] [id number] [place] Urate SerPl-mCncon Urate [Mass/Vol] 2.8 mg/dL Normal 2.5-6.6 [facility] Comment on above: Order Comment: Speci men Type: BLOOD SPECIMENOrdering Facility: [facility] Address: [address] [place], [place] [id number] Performed By: #### 3 084-1, 2532-0, 2777-1, 32879-0 ####[facility] LABCLIA [id number] [place] [address] Kelle 06-18-2023 NATALIA Telephone (EBONY) SWATHI VALLADARES ([id number]) 1955 F Date Time Provider Department 06/18/23 SHRIIN SALVADOR During your visit today, we recorded the following information about you: Shirin Salvador RN 06/18/2023 11:25 AM Signed 06/04/23 encounter per Pilo okay to come early for labs. Pt called today to schedule for tomorrow at 11 am. She reports continued symptoms of decreased appetite, increased fatigue, constipation, nausea, numbness/pain to her lower extremities, and joint pain. She is scheduled at her [facility] tomorrow as Pilo recommended. She is aware we will call with lab results once resulted, and will call with any additional needs or recommendations following her appt tomorrow. PSS: Please schedule pt for lab 06/19 at 11 FIFI Fitzpatrick PssRut 06/18/2023 11:28 AM Signed Patient has been scheduled for lab. Rut Bautista Pss Allergies As of Date: 06/18/2023 (No Known Allergies) Date Reviewed: 03/17/2023 Reviewed by: Eric Sol MD - Fully Assessed Reason for Visit: Patient Update [1234] Appointment [186] Prescriptions as of 06/18/2023 - ascorbic acid (VITAMIN C ORAL) Take by mouth once daily. - cyanocobalamin, vitamin B-12, (VITAMIN B-12 ORAL) Take by mouth once daily. - hydrOXYchloroQUINE (PLAQUENIL) 200 mg tablet TAKE 1 TABLET BY MOUTH TWICE DAILY WITH FOOD AND YEARLY EYE EXAM - aspirin 81 mg chewable tablet Take 162 mg by mouth once daily. - therapeutic multivitamin (THERA VITAMIN) tablet Take 1 tablet by mouth daily with breakfast. Facility-Administered Medications as of 06/18/2023 - perflutren lipid microspheres 1.3 mL in NaCl (PF) 0.9% 10 mL injection (DEFINITY) - sodium chloride 0.9 % (flush) 10 mL (BD POSIFLUSH) - perflutren lipid microspheres 1.3 mL in NaCl (PF) 0.9% 10 mL injection (DEFINITY) - sodium chloride 0.9 % (flush) 10 mL (BD POSIFLUSH) Problem List As Of Date 06/18/2023 Noted Resolved Discharge planning issues [Z02.9] 03/12/2018 Preop testing [Z01.818] 03/12/2018 03/18/2018 (aortic stenosis) [I35.0] 03/13/2018 Atelectasis [J98.11] 03/13/2018 Postoperative pain [G89.18] 03/13/2018 Postoperative hypovolemia [E89.89, E86.1] 03/13/2018 03/15/2018 Postoperative hypertension [I97.3] 03/15/2018 Fluid overload [E87.70] 03/15/2018 Transition of care performed with sharing of cl*03/16/2018 Tachycardia [R00.0] 03/17/2018 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] 03/17/2018 Abdominal mass [R19.00] 09/12/2021 Pneumonia due to infectious organism [J18.9] 10/17/2021 Congestive heart failure (HCC) [I50.9] 10/17/2021 Chronic cough [R05.3] 10/17/2021 Diverticulitis [K57.92] 10/17/2021 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] 11/28/2021 Severe aortic stenosis [I35.0] 11/29/2021 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/29/2021 GERD (gastroesophageal reflux disease) [K21.9] 04/22/2022 CVA (cerebral vascular accident) (HCC) [I63.9] 04/22/2022 COPD (chronic obstructive pulmonary disease) (H*04/22/2022 Lupus (HCC) [M32.9] 04/22/2022 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 04/24/2022 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, 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.7] 05/16/2022 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] 05/22/2022 Moderate protein-calorie malnutrition (HCC) [E4*03/17/2023 Encounter Status:Closed by RUT BERTRAND on 06/18/23 Normal [place] [facility] Anti-Rodriguez Antibodieson 08-3 Anti-Rodriguez Antibodies 0.4 Normal 0.0-0.9 [facility] Comment on above: Performed By: #### A DNA, SSA, RODRIGUEZ, C3, CH50, SSB, C4 ####[facility] ,#### ESR, LDH, CREAT, CUU, ADDONUAPLUS, CRP, CBC ####[facility] [address] [id number] [facility] Anti-dsDNA(DBL)Abon 08-31-20 23 Anti-dsDNA(DBL)Ab 1 Normal 0-9 [facility] Comment on above: Result Comment: Nega tive <5 Equivocal 5 - 9 Positive >9 Performed at: - [facility] [address] [id number] Key Worker: Roland Hess PhD, Phone: [phone] PERFORMED BY: [facility] [address] [place] [address] PATHOLOGIST FINISHER ACCORDION ERASMO SAUL M.D. Performed By: #### A DNA, SSA, RODRIGUEZ, C3, CH50, SSB, C4 ####[facility] ,#### ESR, LDH, CREAT, CUU, ADDONUAPLUS, CRP, CBC ####[facility] [id number] [id number] [facility] Automated erythrocytes count in urine sediment (number/area)Ordered By: Kassie Arroyo on 06-05-2023 RBC Auto (Urine sed) [#/Area] 3-4 [HPF] 0-4 [facility] Automated leukocytes count i n urine sediment (number/area)Ordered By: Kassie Arroyo on 06-05-2023 WBC Auto (Urine sed) [#/Area] 5-9 [HPF] 0-4 [facility] Basophils Auto (Bld) [#/Vol] Ordered By: Kassie Arroyo on 06-05-2023 Basophils (Bld) [#/Vol] 0.0 10*3/uL 0.0-0.2 [facility] Basophils/100 WBC Auto (Bld) Ordered By: Kassie Arroyo on 06-05-2023 Basophils/100 WBC (Bld) 0.4 % . [facility] Bilirubin Test strip Ql (U)O rdered By: Kassie Arroyo on 06-05-2023 Bilirubin Ql (U) Negative Negative [facility] C reactive protein [Mass/vol ume] in Serum or PlasmaOrdered By: Kassie Arroyo on 06-05-2023 CRP [Mass/Vol] < 0.5 mg/dL 0.0-0.5 [facility] C-Reactive Proteinon 023 CRP [Mass/Vol] mg/L Normal 0.0-0.5 [facility] Comment on above: Result Comment: PERF ORMED BY: [facility] [address] [place] [address] PATHOLOGIST FINISHER ACCORDION ERASMO SAUL M.D. Performed By: #### A DNA, SSA, RODRIGUEZ, C3, CH50, SSB, C4 ####[facility] ,#### ESR, LDH, CREAT, CUU, ADDONUAPLUS, CRP, CBC ####[place] [id number] [facility] Color Auto (U)Ordered By: Sophia Arroyo on 06-05-2023 Color (U) Yellow Yellow [facility] Complement C3on 06-05-2023 Complement C3 100 mg/dL Normal 82-167 [facility] Comment on above: Result Comment: Perf ormed at: CB - [facility] [address] [id number] Key Worker: Roland Hess PhD, Phone: [phone] Performed By: #### A DNA, SSA, RODRIGUEZ, C3, CH50, SSB, C4 ####[facility] ,#### ESR, LDH, CREAT, CUU, ADDONUAPLUS, CRP, CBC ####[place] [id number] [facility] Complement C4on 06-05-2023 Complement C4 9 mg/dL Low 12-38 [facility] Comment on above: Performed By: #### A DNA, SSA, RODRIGUEZ, C3, CH50, SSB, C4 ####[facility] ,#### ESR, LDH, CREAT, CUU, ADDONUAPLUS, CRP, CBC ####[address] Complement DATon 06-05-2023 Complement C3B,-C3D AHG Negative Normal [facility] Comment on above: Result Comment: PERF ORMED BY: [facility] [address] [id number] PATHOLOGIST FINISHER ACCORDION ERASMO SAUL M.D. Complement Total (CH50)on Complement Total (CH50) 57 Normal >41 [facility] Comment on above: Result Comment: Age Male Female 1 - 30 days Not Estab. Not Estab. 31 days - 6 months >32 >20 7 months - 17 years >39 >39 >17 years >41 >41 NOTE: The adult ( >17 years ) reference interval range is used to flag abnormals on this report. If the patient is 17 years old or younger, use the table above to determine out of range values. Performed at: - [facility] [id number] Key Worker: Roland Hess PhD, Phone: [phone] PERFORMED BY: [facility] [address] [place] [address] PATHOLOGIST FINISHER ACCORDION ERASMO SAUL M.D. Performed By: #### A DNA, SSA, RODRIGUEZ, C3, CH50, SSB, C4 ####[facility] ,#### ESR, LDH, CREAT, CUU, ADDONUAPLUS, CRP, CBC ####[facility] [id number] [place] [id number] [facility] Complete Blood Count Auto Di ffon 06-05-2023 Basophils (Bld) [#/Vol] 0.0 10*3/uL Normal 0.0-0.2 [facility] Comment on above: Performed By: #### A DNA, SSA, RODRIGUEZ, C3, CH50, SSB, C4 ####[facility] ,#### ESR, LDH, CREAT, CUU, ADDONUAPLUS, CRP, CBC ####[facility] [id number] Basophils/100 WBC (Bld) 0.4 % Normal . [facility] Comment on above: Performed By: #### A DNA, SSA, RODRIGUEZ, C3, CH50, SSB, C4 ####[facility] ,#### ESR, LDH, CREAT, CUU, ADDONUAPLUS, CRP, CBC ####[address] Eosinophils (Bld) [#/Vol] 0.1 10*3/uL Normal 0.0-0.45 [facility] Comment on above: Performed By: #### A DNA, SSA, RODRIGUEZ, C3, CH50, SSB, C4 ####[facility] ,#### ESR, LDH, CREAT, CUU, ADDONUAPLUS, CRP, CBC ####[address] Eosinophils/100 WBC (Bld) 3.2 % Normal . [facility] Comment on above: Performed By: #### A DNA, SSA, RODRIGUEZ, C3, CH50, SSB, C4 ####[facility] ,#### ESR, LDH, CREAT, CUU, ADDONUAPLUS, CRP, CBC ####[address] Erythrocyte distribution width (RBC) [Ratio] 13.1 % Normal 11.9-15.3 [facility] Comment on above: Performed By: #### A DNA, SSA, RODRIGUEZ, C3, CH50, SSB, C4 ####[facility] ,#### ESR, LDH, CREAT, CUU, ADDONUAPLUS, CRP, CBC ####[address] Hematocrit (Bld) [Volume fraction] 41.2 % Normal 34.0-46.4 [facility] Comment on above: Performed By: #### A DNA, SSA, RODRIGUEZ, C3, CH50, SSB, C4 ####[facility] ,#### ESR, LDH, CREAT, CUU, ADDONUAPLUS, CRP, CBC ####[address] Hemoglobin (Bld) [Mass/Vol] 13.9 g/dL Normal 11.8-15.4 [facility] Comment on above: Performed By: #### A DNA, SSA, RODRIGUEZ, C3, CH50, SSB, C4 ####[facility] ,#### ESR, LDH, CREAT, CUU, ADDONUAPLUS, CRP, CBC ####[address] Lymphocytes (Bld) [#/Vol] 0.9 10*3/uL Low 1.00-4.8 [facility] Comment on above: Performed By: #### A DNA, SSA, RODRIGUEZ, C3, CH50, SSB, C4 ####[facility] ,#### ESR, LDH, CREAT, CUU, ADDONUAPLUS, CRP, CBC ####[address] Lymphocytes/100 WBC (Bld) 19.6 % Normal . [facility] Comment on above: Performed By: #### A DNA, SSA, RODRIGUEZ, C3, CH50, SSB, C4 ####[facility] ,#### ESR, LDH, CREAT, CUU, ADDONUAPLUS, CRP, CBC ####[address] MCH (RBC) [Entitic mass] 30.6 pg Normal 24.7-34.3 [facility] Comment on above: Performed By: #### A DNA, SSA, RODRIGUEZ, C3, CH50, SSB, C4 ####[facility] ,#### ESR, LDH, CREAT, CUU, ADDONUAPLUS, CRP, CBC ####[address] MCV (RBC) [Entitic vol] 90.9 fL Normal 80-100 [facility] Comment on above: Performed By: #### A DNA, SSA, RODRIGUEZ, C3, CH50, SSB, C4 ####[facility] ,#### ESR, LDH, CREAT, CUU, ADDONUAPLUS, CRP, CBC ####[address] Mean Corpuscular HGB Conc 33.7 g/dL Normal 32.0-35.0 [facility] Comment on above: Performed By: #### A DNA, SSA, RODRIGUEZ, C3, CH50, SSB, C4 ####[facility] ,#### ESR, LDH, CREAT, CUU, ADDONUAPLUS, CRP, CBC ####[address] Monocytes (Bld) [#/Vol] 0.4 10*3/uL Normal 0.0-0.8 [facility] Comment on above: Performed By: #### A DNA, SSA, RODRIGUEZ, C3, CH50, SSB, C4 ####[facility] ,#### ESR, LDH, CREAT, CUU, ADDONUAPLUS, CRP, CBC ####[address] Monocytes/100 WBC (Bld) 8.7 % Normal . [facility] Comment on above: Performed By: #### A DNA, SSA, RODRIGUEZ, C3, CH50, SSB, C4 ####[facility] ,#### ESR, LDH, CREAT, CUU, ADDONUAPLUS, CRP, CBC ####[address] Neutrophils (Bld) [#/Vol] 3.0 10*3/uL Normal 1.8-7.7 [facility] Comment on above: Performed By: #### A DNA, SSA, RODRIGUEZ, C3, CH50, SSB, C4 ####[facility] ,#### ESR, LDH, CREAT, CUU, ADDONUAPLUS, CRP, CBC ####[address] Neutrophils/100 WBC (Bld) 68.1 % Normal . [facility] Comment on above: Performed By: #### A DNA, SSA, RODRIGUEZ, C3, CH50, SSB, C4 ####[facility] ,#### ESR, LDH, CREAT, CUU, ADDONUAPLUS, CRP, CBC ####[address] NRBC% 0.1 /100{WBC} Normal 0-0.5 [facility] Comment on above: Performed By: #### A DNA, SSA, RODRIGUEZ, C3, CH50, SSB, C4 ####[facility] ,#### ESR, LDH, CREAT, CUU, ADDONUAPLUS, CRP, CBC ####[address] Platelet mean volume (Bld) [Entitic vol] 7.3 fL Normal 6.3-10.7 [facility] Comment on above: Performed By: #### A DNA, SSA, RODRIGUEZ, C3, CH50, SSB, C4 ####[facility] ,#### ESR, LDH, CREAT, CUU, ADDONUAPLUS, CRP, CBC ####[address] Platelets (Bld) [#/Vol] 225 10*3/uL Normal 150-450 [facility] Comment on above: Performed By: #### A DNA, SSA, RODRIGUEZ, C3, CH50, SSB, C4 ####[facility] ,#### ESR, LDH, CREAT, CUU, ADDONUAPLUS, CRP, CBC ####[address] RBC (Bld) [#/Vol] 4.53 10*6/uL Normal 3.60-5.00 [facility] Comment on above: Performed By: #### A DNA, SSA, RODRIGUEZ, C3, CH50, SSB, C4 ####[facility] ,#### ESR, LDH, CREAT, CUU, ADDONUAPLUS, CRP, CBC ####[place] [address] [facility] WBC (Bld) [#/Vol] 4.3 10*3/uL Normal 3.8-11.6 [facility] Comment on above: Performed By: #### A DNA, SSA, RODRIGUEZ, C3, CH50, SSB, C4 ####[facility] ,#### ESR, LDH, CREAT, CUU, ADDONUAPLUS, CRP, CBC ####[facility] [place] [id number] [facility] Creatinineon 06-05-2023 Creatinine [Mass/Vol] 0.79 mg/dL Normal 0.60-1.20 [facility] Comment on above: Performed By: #### A DNA, SSA, RODRIGUEZ, C3, CH50, SSB, C4 ####[facility] ,#### ESR, LDH, CREAT, CUU, ADDONUAPLUS, CRP, CBC ####[place] [address] [place] [id number] [facility] GFR/1.73 sq M.predicted MDRD (S/P/Bld) [Vol rate/Area] mL/min/{1.73_m2} Normal [facility] Comment on above: Performed By: #### A DNA, SSA, RODRIGUEZ, C3, CH50, SSB, C4 ####[facility] ,#### ESR, LDH, CREAT, CUU, ADDONUAPLUS, CRP, CBC ####[place] [address] [place] [id number] [facility] Creatinine [Mass/volume] in Serum or PlasmaOrdered By: Kassie Arroyo on 06-05-2023 Creatinine [Mass/Vol] 0.79 mg/dL 0.60-1.20 [facility] Dipstick and Microscopicon 0 06-05-2023 Appearance (U) Cloudy Critically abnormal Clear [facility] Comment on above: Order Comment: Name Collection Type:: Clean-Voided Midstream Performed By: #### A DNA, SSA, RODRIGUEZ, C3, CH50, SSB, C4 ####[facility] ,#### ESR, LDH, CREAT, CUU, ADDONUAPLUS, CRP, CBC ####[address] Bacteria,Urine 4+ High None Seen [facility] Comment on above: Order Comment: Name Collection Type:: Clean-Voided Midstream Performed By: #### A DNA, SSA, RODRIGUEZ, C3, CH50, SSB, C4 ####[facility] ,#### ESR, LDH, CREAT, CUU, ADDONUAPLUS, CRP, CBC ####[address] Bilirubin,Urine Negative Normal Negative [facility] Comment on above: Order Comment: Name Collection Type:: Clean-Voided Midstream Performed By: #### A DNA, SSA, RODRIGUEZ, C3, CH50, SSB, C4 ####[facility] ,#### ESR, LDH, CREAT, CUU, ADDONUAPLUS, CRP, CBC ####[address] Color (U) Yellow Normal Yellow [facility] Comment on above: Order Comment: Name Collection Type:: Clean-Voided Midstream Performed By: #### A DNA, SSA, RODRIGUEZ, C3, CH50, SSB, C4 ####[facility] ,#### ESR, LDH, CREAT, CUU, ADDONUAPLUS, CRP, CBC ####[address] Glucose Ql (U) Normal Normal Normal [facility] Comment on above: Order Comment: Name Collection Type:: Clean-Voided Midstream Performed By: #### A DNA, SSA, RODRIGUEZ, C3, CH50, SSB, C4 ####[facility] ,#### ESR, LDH, CREAT, CUU, ADDONUAPLUS, CRP, CBC ####[place] [id number] [facility] Hyaline Casts,Urine 0-8 Normal 0-8 [facility] Comment on above: Order Comment: Name Collection Type:: Clean-Voided Midstream Result Comment: PERF ORMED BY: [facility] [address] [place] [address] PATHOLOGIST FINISHER ACCORDION ERASMO SAUL M.D. Performed By: #### A DNA, SSA, RODRIGUEZ, C3, CH50, SSB, C4 ####[facility] ,#### ESR, LDH, CREAT, CUU, ADDONUAPLUS, CRP, CBC ####[address] Ketones Ql (U) Trace High Negative [facility] Comment on above: Order Comment: Name Collection Type:: Clean-Voided Midstream Performed By: #### A DNA, SSA, RODRIGUEZ, C3, CH50, SSB, C4 ####[facility] ,#### ESR, LDH, CREAT, CUU, ADDONUAPLUS, CRP, CBC ####[address] Leukocyte esterase Test strip Ql (U) 2+ High Negative [facility] Comment on above: Order Comment: Name Collection Type:: Clean-Voided Midstream Performed By: #### A DNA, SSA, RODRIGUEZ, C3, CH50, SSB, C4 ####[facility] ,#### ESR, LDH, CREAT, CUU, ADDONUAPLUS, CRP, CBC ####[address] Nitrite,Urine Positive High Negative [facility] Comment on above: Order Comment: Name Collection Type:: Clean-Voided Midstream Performed By: #### A DNA, SSA, RODRIGUEZ, C3, CH50, SSB, C4 ####[facility] ,#### ESR, LDH, CREAT, CUU, ADDONUAPLUS, CRP, CBC ####[place] [id number] [facility] Occult Blood,Urine Negative Normal Negative [facility] Comment on above: Order Comment: Name Collection Type:: Clean-Voided Midstream Result Comment: PERF ORMED BY: [facility] [address] [place] [address] PATHOLOGIST FINISHER ACCORDION ERASMO SAUL M.D. Performed By: #### A DNA, SSA, RODRIGUEZ, C3, CH50, SSB, C4 ####[facility] ,#### ESR, LDH, CREAT, CUU, ADDONUAPLUS, CRP, CBC ####[address] pH (U) 5.5 [pH] Normal 5.0-9.0 [facility] Comment on above: Order Comment: Name Collection Type:: Clean-Voided Midstream Performed By: #### A DNA, SSA, RODRIGUEZ, C3, CH50, SSB, C4 ####[facility] ,#### ESR, LDH, CREAT, CUU, ADDONUAPLUS, CRP, CBC ####[address] Protein (U) [Mass/Vol] 30 mg/dL High Negative [facility] Comment on above: Order Comment: Name Collection Type:: Clean-Voided Midstream Performed By: #### A DNA, SSA, RODRIGUEZ, C3, CH50, SSB, C4 ####[facility] ,#### ESR, LDH, CREAT, CUU, ADDONUAPLUS, CRP, CBC ####[address] RBC,Urine 3-4 Normal 0-4 [facility] Comment on above: Order Comment: Name Collection Type:: Clean-Voided Midstream Performed By: #### A DNA, SSA, RODRIGUEZ, C3, CH50, SSB, C4 ####[facility] ,#### ESR, LDH, CREAT, CUU, ADDONUAPLUS, CRP, CBC ####[address] Specificy [place],Urine 1.024 Normal 1.001-1.030 [facility] Comment on above: Order Comment: Name Collection Type:: Clean-Voided Midstream Performed By: #### A DNA, SSA, RODRIGUEZ, C3, CH50, SSB, C4 ####[facility] ,#### ESR, LDH, CREAT, CUU, ADDONUAPLUS, CRP, CBC ####[address] Squamous Epithelial Cell,Urine 1-2 Normal 0-2 [facility] Comment on above: Order Comment: Name Collection Type:: Clean-Voided Midstream Performed By: #### A DNA, SSA, RODRIGUEZ, C3, CH50, SSB, C4 ####[facility] ,#### ESR, LDH, CREAT, CUU, ADDONUAPLUS, CRP, CBC ####[address] Urobilinogen,Urine Normal Normal Normal [facility] Comment on above: Order Comment: Name Collection Type:: Clean-Voided Midstream Performed By: #### A DNA, SSA, RODRIGUEZ, C3, CH50, SSB, C4 ####[facility] ,#### ESR, LDH, CREAT, CUU, ADDONUAPLUS, CRP, CBC ####[place] [id number] [place] [id number] [facility] WBC,Urine 5-9 High 0-4 [facility] Comment on above: Order Comment: Name Collection Type:: Clean-Voided Midstream Performed By: #### A DNA, SSA, RODRIGUEZ, C3, CH50, SSB, C4 ####[facility] ,#### ESR, LDH, CREAT, CUU, ADDONUAPLUS, CRP, CBC ####[address] Direct Antiglobulin Teston 0 06-05-2023 IgG AHG Negative Normal [facility] Direct [place] 06-05-2023 Polyspecific AHG Negative Normal [facility] Comment on above: Order Comment: Weak positive Result Comment: --- 06/05/231818 --- Poly AHG previously reported as: Positive *A Eosinophils Auto (Bld) [#/Vo l]Ordered By: Kassie Arroyo on 06-05-2023 Eosinophils (Bld) [#/Vol] 0.1 10*3/uL 0.0-0.45 [facility] Eosinophils/100 WBC Auto (Bl d)Ordered By: Kassie Arroyo on 06-05-2023 Eosinophils/100 WBC (Bld) 3.2 % . [facility] Erythrocyte Sedimentation Ra nemo 06-05-2023 ESR (Bld) [Velocity] 58 mm/h High 0- [facility] Comment on above: Result Comment: PERF ORMED BY: [facility] [address] [place] [id number] PATHOLOGIST FINISHER ACCORDION ERASMO SAUL M.D. Performed By: #### A DNA, SSA, RODRIGUEZ, C3, CH50, SSB, C4 ####[facility] ,#### ESR, LDH, CREAT, CUU, ADDONUAPLUS, CRP, CBC ####[facility] [id number] [place] [address] [facility] Erythrocyte distribution wid th Auto (RBC) [Ratio]Ordered By: Kassie Arroyo on 06-05-2023 Erythrocyte distribution width (RBC) [Ratio] 13.1 % 11.9-15.3 [facility] Erythrocyte sedimentation ra te by Photometric methodOrdered By: Kassie Arroyo on 06-05-2023 ESR Photometric method (Bld) [Velocity] 58 mm/hr 0-29 [facility] Hematocrit Auto (Bld) [Volum e fraction]Ordered By: Kassie Arroyo on 06-05-2023 Hematocrit (Bld) [Volume fraction] 41.2 % 34.0-46.4 [facility] Hemoglobin [Mass/volume] in BloodOrdered By: Kassie Arroyo on 06-05-2023 Hemoglobin (Bld) [Mass/Vol] 13.9 g/dL 11.8-15.4 [facility] Ketones Auto test strip (U) [Mass/Vol]Ordered By: Kassie Arroyo on 06-05-2023 Ketones (U) [Mass/Vol] Trace Negative [facility] LDH Lactate Dehydrogenaseon 06-05-2023 LDH Lactate Dehydrogenase 193 U/L Normal 140-271 [facility] Comment on above: Performed By: #### A DNA, SSA, RODRIGUEZ, C3, CH50, SSB, C4 ####[facility] ,#### ESR, LDH, CREAT, CUU, ADDONUAPLUS, CRP, CBC ####[facility] [id number] [place] [address] [facility] Laboratory - UrinalysisOrder ed By: Kassie Arroyo on 06-05-2023 Hyaline casts LM Ql (Urine sed) 0-8 [LPF] 0-8 [facility] Lactate dehydrogenase [Enzym atic activity/volume] in Serum or Plasma by Lactate to pyOrdered By: Kassie Arroyo on 06-05-2023 LDH Lactate to pyruvate reaction [Catalytic activity/Vol] 193 U/L 140-271 [facility] Leukocytes [#/volume] correc maddi for nucleated erythrocytes in Blood by Automated counOrdered By: Kassie Arroyo on 06-05-2023 WBC corrected for nucl RBC Auto (Bld) [#/Vol] 4.3 10*3/uL 3.8-11.6 [facility] Lymphocytes Auto (Bld) [#/Vo l]Ordered By: Kassie Arroyo on 06-05-2023 Lymphocytes (Bld) [#/Vol] 0.9 10*3/uL 1.00-4.8 [facility] Lymphocytes/100 WBC Auto (Bl d)Ordered By: Kassie Arroyo on 06-05-2023 Lymphocytes/100 WBC (Bld) 19.6 % . [facility] MCH Auto (RBC) [Entitic mass ]Ordered By: Kassie Arroyo on 06-05-2023 MCH (RBC) [Entitic mass] 30.6 pg 24.7-34.3 [facility] MCHC Auto (RBC) [Mass/Vol]Or dered By: Kassie Arroyo on 06-05-2023 MCHC (RBC) [Mass/Vol] 33.7 g/dL 32.0-35.0 [facility] MCV Auto (RBC) [Entitic vol] Ordered By: Kassie Arroyo on 06-05-2023 MCV (RBC) [Entitic vol] 90.9 fL 80-100 [facility] Monocytes Auto (Bld) [#/Vol] Ordered By: Kassie Arroyo on 06-05-2023 Monocytes (Bld) [#/Vol] 0.4 10*3/uL 0.0-0.8 [facility] Monocytes/100 WBC Auto (Bld) Ordered By: Kassie Arroyo on 06-05-2023 Monocytes/100 WBC (Bld) 8.7 % . [facility] Neutrophils Auto (Bld) [#/Vo l]Ordered By: Kassie Arroyo on 06-05-2023 Neutrophils (Bld) [#/Vol] 3.0 10*3/uL 1.8-7.7 [facility] Neutrophils/100 WBC Auto (Bl d)Ordered By: Kassie Arroyo on 06-05-2023 Neutrophils/100 WBC (Bld) 68.1 % . [facility] Nitrite Test strip Ql (U)Ord ered By: Kassie Arroyo on 06-05-2023 Nitrite Ql (U) Positive Negative [facility] No Panel InformationOrdered By: Kassie Arroyo on 06-05-2023 Estimated GFR (CKD-EPI) > 60.0 mL/Min [facility] Creatinine Clearance (Chem N/A [facility] Nucleated erythrocytes [Pres ence] in Blood by Automated countOrdered By: Kassie Arroyo on 06-05-2023 Nucleated RBC Auto Ql (Bld) 0.1 /100{WBC} 0-0.5 [facility] Platelet mean volume Auto (B ld) [Entitic vol]Ordered By: Kassie Arroyo on 06-05-2023 Platelet mean volume (Bld) [Entitic vol] 7.3 fL 6.3-10.7 [facility] Platelets Auto (Bld) [#/Vol] Ordered By: Kassie Arroyo on 06-05-2023 Platelets (Bld) [#/Vol] 225 10*3/uL 150-450 [facility] Protein Auto test strip (U) [Mass/Vol]Ordered By: Kassie Arroyo on 06-05-2023 Protein (U) [Mass/Vol] 30 mg/dL Negative [facility] RBC Auto (Bld) [#/Vol]Ordere d By: Kassie Arroyo on 06-05-2023 RBC (Bld) [#/Vol] 4.53 10*6/uL 3.60-5.00 [facility] SS-A/Ro Sjogrens Antibodyon 06-05-2023 SS-A/Ro Sjogrens Antibody >8.0 High 0.0-0.9 [facility] Comment on above: Performed By: #### A DNA, SSA, RODRIGUEZ, C3, CH50, SSB, C4 ####[facility] ,#### ESR, LDH, CREAT, CUU, ADDONUAPLUS, CRP, CBC ####[place] [id number] [address] SS-B/[place] Antibodyon 06-05-2023 SS-B/[place] Antibody >8.0 High 0.0-0.9 [facility] Comment on above: Performed By: #### A DNA, SSA, RODRIGUEZ, C3, CH50, SSB, C4 ####[facility] ,#### ESR, LDH, CREAT, CUU, ADDONUAPLUS, CRP, CBC ####[place] [id number] [address] Specific gravity Auto test s trip (U) [Rel density]Ordered By: Kassie Arroyo on 06-05-2023 Specific gravity (U) [Rel density] 1.024 1.001-1.030 [facility] Squamous epithelial cells de tection in urine sediment by light microscopyOrdered By: Kassie Arroyo on 06-05-2023 Epithelial cells.squamous LM Ql (Urine sed) 1-2 [HPF] 0-2 [facility] Urine Cultureon 06-05-2023 Bacteria identified Cx Nom (U) ORGANISM: Escherichia coli (O:ESCCOL) [place] Count >100,000 Aerobic ASHLEY Charge ([id number]) --- SUSCEPTIBILITY -- ORGANISM: O:ESCCOL ANTIBIOTIC INTERPRETATION ASHLEY Amikacin S <16 Amoxacillin/K Clavulanate S <8 Ampicillin S <8 Ampicillin/Sulbactam S <4 Aztreonam S <4 Cefazolin S <2 Cefepime S <2 Ceftazidime S <1 Ceftazidime/Avibactam S <4 Ceftolozane/Tazobactam S <2 Ceftriaxone S <1 Cefuroxime S <4 Ciprofloxacin S <0.25 Ertapenem S <0.5 Gentamicin R >8 Levofloxacin S <0.5 Meropenem S <1 Meropenem/Vaborbactam S <2 Nitrofurantoin S <32 Piperacillin/Tazobacta m S <8 Tetracycline S <4 Tigecycline S <2 Tobramycin I 8 Trimethoprim/Sulfameth oxazole S <0.5 S = SUSCEPTIBLE I = INTERMEDIATE R = RESISTANT BLANK = DATA NOT AVAILABLE, OR DRUG NOT ADVISABLE OR TESTED R* = RESISTANCE DUE TO EXTENDED SPECTRUM BETA-LACTAMASES ESBL = EXTENDED SPECTRUM BETA-LACTAMASE TFG = THYMIDINE-DEPENDENT STRAIN WALDO = BETA-LACTAMASE POSITIVE IB = INDUCIBLE BETA-LACTAMASE. APPEARS IN PLACE OF 'S' WITH SPECIES KNOWN TO POSSESS INDUCIBLE BETA-LACTAMASES. POTENTIALLY THEY MAY BECOME RESISTANT TO ALL B-LACTAM DRUGS. PERFORMED BY: [facility] [address] [place] [address] PATHOLOGIST FINISHER ACCORDION ERASMO SAUL M.D. Normal [facility] Comment on above: Performed By: #### A DNA, SSA, RODRIGUEZ, C3, CH50, SSB, C4 ####[facility] ,#### ESR, LDH, CREAT, CUU, ADDONUAPLUS, CRP, CBC ####[facility] [id number] [place] [id number] [facility] Urine bacteria detection by automated methodOrdered By: Kassie Arroyo on 06-05-2023 Bacteria Auto Ql (U) 4+ None Seen [facility] Urine clarity by refractomet ry automatedOrdered By: Kassie Arroyo on 06-05-2023 Clarity Refractometry automated (U) Cloudy Clear [facility] Urine glucose measurement by automated test strip (mass/volume)Ordered By: Kassie Arroyo on 06-05-2023 Glucose Auto test strip (U) [Mass/Vol] Normal mg/dL Normal [facility] Urine hemoglobin detection b y automated test stripOrdered By: Kassie Arroyo on 06-05-2023 Hemoglobin Auto test strip Ql (U) Negative Negative [facility] Urine leukocyte esterase det ection by automated test stripOrdered By: Kassie Arroyo on 06-05-2023 Leukocyte esterase Auto test strip Ql (U) 2+ Negative [facility] Urobilinogen Auto test strip (U) [Mass/Vol]Ordered By: Kassie Arroyo on 06-05-2023 Urobilinogen (U) [Mass/Vol] Normal mg/dL Normal [facility] WBC Auto (Bld) [#/Vol]Ordere d By: Kassie Arroyo on 06-05-2023 WBC (Bld) [#/Vol] 4.3 10*3/uL 3.8-11.6 [facility] pH Auto test strip (U)Ordere d By: Kassie Arroyo on 06-05-2023 pH (U) 5.5 [pH] 5.0-9.0 [facility] CNPNon 06-04-2023 CNPN Telephone (HEMASA) SWATHI VALLADARES ([id number]) 1955 F Date Time Provider Department 06/04/23 LINETTE DAVIS During your visit today, we recorded the following information about you: Linette Davis, RN 06/04/2023 9:01 AM Signed Pt calls voicing concerns that she has multiple myeloma. C/o decreased appetite, increased fatigue, constipation, nausea, numbness/pain to her lower extremities, and joint pain. Reports her symptoms began a few weeks ago. Last set of myeloma labs were drawn in March. Next set due to be drawn in September w/ scans. Pt has plans to go out of the country next week, but is fearful to travel due to how she feels currently. What do you advise? FIFI Meléndez Vivek, MD 06/04/2023 10:54 AM Signed She doesn't have multiple myeloma. M-spike is 0. Her IgG is elevated due to her underlying auto-immune disorder which is likely what is driving her symptoms. 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 If she would feel better and would like to get her labs done now, - I have placed an order. Linette Davis RN 06/04/2023 11:32 AM Signed Pt notified of 's recommendations and verbalizes understanding. Disposition: per Dr Sol, patient directed to: [facility] at home. Provided instructions and will call back. Pt reports that she made a lab appointment on line for 06/18 @ 9 AM. 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] Order(s):B2 MICROGLOBULIN B [SQB2M] Order #: [id number] FUTURE CBC + DIFF [SQCBCDIF] Order #: [id number] FUTURE COMP METABOLIC PANEL [SQCMP] Order #: [id number] FUTURE LD LACTATE DEHYDRO [SQLD6] Order #: [id number] FUTURE PHOSPHORUS INORGANIC [SQPHOS] Order #: [id number] FUTURE PROTEIN ELECTROPHORESIS SERUM W/INTERP [SQSEPG] Order #: [id number] FUTURE MONOCLONAL PROTEIN, SERUM (BLOOD) [SQSERMPA] Order #: [id number] FUTURE URIC ACID BLOOD [SQURIC] Order #: [id number] FUTURE CALCIUM IONIZED BLOOD [SQICA] Order #: [id number] FUTURE KAPPA/EBACH,FREE,SER [SQKLFRS] Order #: [id number] FUTURE Prescriptions as of 06/04/2023 - ascorbic acid (VITAMIN C ORAL) Take by mouth once daily. - cyanocobalamin, vitamin B-12, (VITAMIN B-12 ORAL) Take by mouth once daily. - hydrOXYchloroQUINE (PLAQUENIL) 200 mg tablet TAKE 1 TABLET BY MOUTH TWICE DAILY WITH FOOD AND YEARLY EYE EXAM - aspirin 81 mg chewable tablet Take 162 mg by mouth once daily. - therapeutic multivitamin (THERA VITAMIN) tablet Take 1 tablet by mouth daily with breakfast. Facility-Administered Medications as of 06/04/2023 - perflutren lipid microspheres 1.3 mL in NaCl (PF) 0.9% 10 mL injection (DEFINITY) - sodium chloride 0.9 % (flush) 10 mL (BD POSIFLUSH) - perflutren lipid microspheres 1.3 mL in NaCl (PF) 0.9% 10 mL injection (DEFINITY) - sodium chloride 0.9 % (flush) 10 mL (BD POSIFLUSH) Problem List As Of Date 06/04/2023 Noted Resolved Discharge planning issues [Z02.9] 03/12/2018 Preop testing [Z01.818] 03/12/2018 03/18/2018 (aortic stenosis) [I35.0] 03/13/2018 Atelectasis [J98.11] 03/13/2018 Postoperative pain [G89.18] 03/13/2018 Postoperative hypovolemia [E89.89, E86.1] 03/13/2018 03/15/2018 Postoperative hypertension [I97.3] 03/15/2018 Fluid overload [E87.70] 03/15/2018 Transition of care performed with sharing of cl*03/16/2018 Tachycardia [R00.0] 03/17/2018 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] 03/17/2018 Abdominal mass [R19.00] 09/12/2021 Pneumonia due to infectious organism [J18.9] 10/17/2021 Congestive heart failure (HCC) [I50.9] 10/17/2021 Chronic cough [R05.3] 10/17/2021 Diverticulitis [K57.92] 10/17/2021 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] 11/28/2021 Severe aortic stenosis [I35.0] 11/29/2021 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/29/2021 GERD (gastroesophageal reflux disease) [K21.9] 04/22/2022 CVA (cerebral vascular accident) (HCC) [I63.9] 04/22/2022 COPD (chronic obstructive pulmonary disease) (H*04/22/2022 Lupus (HCC) [M32.9] 04/22/2022 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 04/24/2022 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, R19.7] 05/16/2022 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 Garcia appt 04/25. Ceasar Hoover 03/19/2023 10:55 AM Signed Scheduling office called stating the pt contacted their office and rescheduled appt to June. No need for request for echo on spreadsheet. Office deleted pt info from spreadsheet. Allergies As of Date: 03/19/2023 (No Known Allergies) Date Reviewed: 03/17/2023 Reviewed by: Eric Abhyankar, MD - Fully Assessed Reason for Visit: ECHO SPREADSHEET [Other] Cmt: Jose appt 04/25 Prescriptions as of 03/19/2023 - ascorbic acid (VITAMIN C ORAL) Take by mouth once daily. - cyanocobalamin, vitamin B-12, (VITAMIN B-12 ORAL) Take by mouth once daily. - hydrOXYchloroQUINE (PLAQUENIL) 200 mg tablet TAKE 1 TABLET BY MOUTH TWICE DAILY WITH FOOD AND YEARLY EYE EXAM - aspirin 81 mg chewable tablet Take 162 mg by mouth once daily. - therapeutic multivitamin (THERA VITAMIN) tablet Take 1 tablet by mouth daily with breakfast. Facility-Administered Medications as of 03/19/2023 - perflutren lipid microspheres 1.3 mL in NaCl (PF) 0.9% 10 mL injection (DEFINITY) - sodium chloride 0.9 % (flush) 10 mL (BD POSIFLUSH) Problem List As Of Date 03/19/2023 Noted Resolved Discharge planning issues [Z02.9] 03/12/2018 Preop testing [Z01.818] 03/12/2018 03/18/2018 (aortic stenosis) [I35.0] 03/13/2018 Atelectasis [J98.11] 03/13/2018 Postoperative pain [G89.18] 03/13/2018 Postoperative hypovolemia [E89.89, E86.1] 03/13/2018 03/15/2018 Postoperative hypertension [I97.3] 03/15/2018 Fluid overload [E87.70] 03/15/2018 Transition of care performed with sharing of cl*03/16/2018 Tachycardia [R00.0] 03/17/2018 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] 03/17/2018 Abdominal mass [R19.00] 09/12/2021 Pneumonia due to infectious organism [J18.9] 10/17/2021 Congestive heart failure (HCC) [I50.9] 10/17/2021 Chronic cough [R05.3] 10/17/2021 Diverticulitis [K57.92] 10/17/2021 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] 11/28/2021 Severe aortic stenosis [I35.0] 11/29/2021 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/29/2021 GERD (gastroesophageal reflux disease) [K21.9] 04/22/2022 CVA (cerebral vascular accident) (HCC) [I63.9] 04/22/2022 COPD (chronic obstructive pulmonary disease) (H*04/22/2022 Lupus (HCC) [M32.9] 04/22/2022 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 04/24/2022 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, R19.7] 05/16/2022 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] 05/22/2022 Moderate protein-calorie malnutrition (HCC) [E4*03/17/2023 Encounter Status:Closed by CEASAR HOOVER on 03/19/23 [facility] CNOVSPon 03-17-2023 CNOVSP Visit (SP) Office (HEMASA) SWATHI VALLADARES ([id number]) 1955 F Date Time Provider Department 03/17/23 8:45 AM ERIC SOL During your visit today, we recorded the following information about you: Temperature Pulse Respiration Blood pressure 98.2 degrees 61/minute 16/minute 167/86 Weight Height 56.3 kg 1.6 m Rach Aguiar MA 03/17/2023 8:48 AM Addendum Patient would like to know if she should stop B12 due to her levels and also wants to know what could be causing protein to be so elevated. 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 Tissue quantity was insufficient for mutational analysis. She got neoadjuvant imatinib 400 mg daily. Now resected. 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 Remains low risk (3.6% rate of recurrence) despite size of tumor. 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 Anemia: improved. 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 She is also following with dermatology for vasculitis. She is now on hydroxychloroquine. Continue follow ups with dermatology and rheumatology. WBC count decreased due to plaquenil - not neutropenic. IgG elevated. K/L ratio elevated consistent with underlying autoimmune disease. PLAN: CT CAP in 6 months - labs same day. RTC after to review Draw myeloma labs with scans for elevated protein level Continue Replacing B12 SL OTC. Patient will follow up with Dr. Judd as needed (Have discussed with him) HPI: CASE HISTORY: Reverse chronological order 03/10/2023 - CT CAP: no evidence of recurrence 11/04/2022 - CT CAP: Chronic changes in the lungs otherwise no evidence of recurrence on chest or abdominal/pelvic series. 07/24/2022 - CT CAP: no evidence of metastatic disease. Mild prominence of intra/extra hepatic bile ducts - no mass. 04/24/2022 - ex-Lap, distal karsten-gastrectomy, Billroth I recon, GIST 9.5 cm, 3 mitoses per 5 mm2 - T3 N0 C-kit, PDGFR, and BRAF wild-type, low risk disease. SDHB deficiency, NTRK (-) 04/16/2022 - CT CAP - stable thoracic LN, and pulmonary nodules; unchanged exophytic heterogeneously enhancing gastric mass., 1.1 cm right renal complex cycst - new. January 29, 2022 CT chest abdomen pelvis with stable gastric mass and borderline chest adenopathy December 19, 2021 started imatinib 400 mg daily November 27, 2021 CT chest negative for thoracic spread. PET scan showed heterogeneous uptake in the known GIST and a focus of uptake in the right hemipelvis may be secondary to ureteral and/or janice uptake. Follow up CT abdomen pelvis on December 07, 2021 was without any pelvic adenopathy. November 15, 2021 tumor board recommendations were to do a CT chest to complete staging. There was a concern for for a paraaortic node that needed for be evaluated by a PET November 07, 2021 EGD EUS (Dr. Cuello) notable for gastric tumor on the lesser curvature; cytology showed a spindle cell neoplasm consistent with GIST (positive staining for CD117 and Dog 1, negative for desmin) August 17, 2021 CT chest abdomen pelvis notable for large heterogeneous mass in the left abdomen measuring 7.6 x 6.1 x 10.8 cm, nonspecific groundglass opacities in lungs and borderline enlarged mediastinal nodes Presented initially with worsening dyspnea in the setting of restenosis of a previously placed aortic valve. Got CT scans as a part of the evaluation prior to TAVR Updated Visit, March 17, 2023: Doing well overall. Scans and labs reviewed. Protein is elevated and unchanged although k/lL ratio is elevated. No M-spike. IgG elevated and liley related to her sjogren's. Also has decreased WBC's but not neutropenic. Likely related to plaquenil. Updated Visit, November 11, 2022: Doing well - Lupus seems to have resolved following resection of GIST. Still fatigued a lot which is unusual for her. T. Protein is elevated and will have additional labs drawn today. CT is reviewed without evidence of recurrence. Updated Visit, August 01, 2022: Swathi comes back - she is overwhelmed and gt her appointments mixed up. Review of her sans indicate no recurrence or distant mets. She remains malnourished but is trying. Will coordinate future follow up with Dr. Judd. Overall, she feel (more content not included)... Normal [facility] B2 Microglob SerPl-mCncon Exbv-7-Ateleqmrqafbs [Mass/Vol] 2.8 ug/mL Normal <3.1 [facility] Comment on above: Order Comment: Speci men Type: BLOOD SPECIMENOrdering Facility: [facility] Address: [address] [place] [address] [place] [address] Result Comment: Beta -2 Microglobulin test is performed using the [employer] immunoturbidimetric method. Results obtained with different methods or kits cannot be used interchangeably. Performed By: #### 2 276-4, 1952-1, 63774-1 ####[facility] LABCLIA [id number] MIESHAWilla [facility] [id number] [place] CBC W Auto Differential pane l (Bld)on 03-10-2023 Basophils (Bld) [#/Vol] 10*3/uL Normal <0.11 [facility] Comment on above: Order Comment: Speci men Type: BLOOD SPECIMENOrdering Facility: [facility] Address: [address] [address] Performed By: #### 5 7021-8 ####[facility] LABCLIA [id number] [place] [address] Basophils/100 WBC (Bld) 0.4 % Normal [facility] Comment on above: Order Comment: Speci men Type: BLOOD SPECIMENOrdering Facility: [facility] Address: [address] [address] Performed By: #### 5 7021-8 ####[facility] LABCLIA [id number] [place] [address] Differential cell count method Nom (Bld) Auto Normal [facility] Comment on above: Order Comment: Speci men Type: BLOOD SPECIMENOrdering Facility: [facility] Address: [address] [address] Performed By: #### 5 7021-8 ####[facility] LABIA [id number] [place] [address] Eosinophils (Bld) [#/Vol] 0.19 10*3/uL Normal <0.46 [facility] Comment on above: Order Comment: Speci men Type: BLOOD SPECIMENOrdering Facility: [facility] Address: [address] [address] Performed By: #### 5 7021-8 ####[facility] LABCLIA [id number] [place] [address] Eosinophils/100 WBC (Bld) 6.7 % Normal [facility] Comment on above: Order Comment: Speci men Type: BLOOD SPECIMENOrdering Facility: [facility] Address: [address] [place] [address] Performed By: #### 5 7021-8 ####[facility] LABCLIA [id number] [place] [address] Erythrocyte distribution width (RBC) [Ratio] 12.2 % Normal 11.5-15.0 [facility] Comment on above: Order Comment: Speci men Type: BLOOD SPECIMENOrdering Facility: [facility] Address: [address] [place] [address] Performed By: #### 5 7021-8 ####[facility] LABIA [id number] [place] [address] Hematocrit (Bld) [Volume fraction] 40.2 % Normal 36.0-46.0 [facility] Comment on above: Order Comment: Speci men Type: BLOOD SPECIMENOrdering Facility: [facility] Address: [address] [place] [address] Performed By: #### 5 7021-8 ####[facility] LABCLIA [id number] [place] [address] Hemoglobin (Bld) [Mass/Vol] 13.4 g/dL Normal 11.5-15.5 [facility] Comment on above: Order Comment: Speci men Type: BLOOD SPECIMENOrdering Facility: [facility] Address: [address] [place] [address] Performed By: #### 5 7021-8 ####[facility] LABIA [id number] [place] [address] Immature granulocytes (Bld) [#/Vol] 10*3/uL Normal <0.10 [facility] Comment on above: Order Comment: Speci men Type: BLOOD SPECIMENOrdering Facility: [facility] Address: [address] [place] [address] Performed By: #### 5 7021-8 ####[facility] LABIA [id number] [place] [address] Immature granulocytes/100 WBC (Bld) 0.4 % Normal [facility] Comment on above: Order Comment: Speci men Type: BLOOD SPECIMENOrdering Facility: [facility] Address: [address] [place] [address] Performed By: #### 5 7021-8 ####[facility] LABIA [id number] [place] [address] Lymphocytes (Bld) [#/Vol] 0.84 10*3/uL Low 1.00-4.00 [facility] Comment on above: Order Comment: Speci men Type: BLOOD SPECIMENOrdering Facility: [facility] Address: [address] [place] [address] Performed By: #### 5 7021-8 ####[facility] LABIA [id number] [place] [address] Lymphocytes/100 WBC (Bld) 29.7 % Normal [facility] Comment on above: Order Comment: Speci men Type: BLOOD SPECIMENOrdering Facility: [facility] Address: [address] [place] [address] Performed By: #### 5 7021-8 ####[facility] LABCLIA [id number] [place] [address] MCH (RBC) [Entitic mass] 30.4 pg Normal 26.0-34.0 [facility] Comment on above: Order Comment: Speci men Type: BLOOD SPECIMENOrdering Facility: [facility] Address: [address] [place] [address] Performed By: #### 5 7021-8 ####[facility] LABIA [id number] [place] [address] MCHC (RBC) [Mass/Vol] 33.3 g/dL Normal 30.5-36.0 [facility] Comment on above: Order Comment: Speci men Type: BLOOD SPECIMENOrdering Facility: [facility] Address: [address] [place] [address] Performed By: #### 5 7021-8 ####[facility] LABCLIA [id number] [place] [address] MCV (RBC) [Entitic vol] 91.2 fL Normal 80.0-100.0 [facility] Comment on above: Order Comment: Speci men Type: BLOOD SPECIMENOrdering Facility: [facility] Address: [address] [place] [address] Performed By: #### 5 7021-8 ####[facility] LABCLIA [id number] [place] [address] Monocytes (Bld) [#/Vol] 0.35 10*3/uL Normal <0.87 [facility] Comment on above: Order Comment: Speci men Type: BLOOD SPECIMENOrdering Facility: [facility] Address: [address] [place] [address] Performed By: #### 5 7021-8 ####[facility] LABCLIA [id number] [place] [address] Monocytes/100 WBC (Bld) 12.4 % Normal [facility] Comment on above: Order Comment: Speci men Type: BLOOD SPECIMENOrdering Facility: [facility] Address: [address] [place] [address] Performed By: #### 5 7021-8 ####[facility] LABCLIA [id number] [place] [address] Neutrophils (Bld) [#/Vol] 1.43 10*3/uL Low 1.45-7.50 [facility] Comment on above: Order Comment: Speci men Type: BLOOD SPECIMENOrdering Facility: [facility] Address: [address] [place] [address] Performed By: #### 5 7021-8 ####[facility] LABCLIA [id number] [place] [address] Neutrophils/100 WBC (Bld) 50.4 % Normal [facility] Comment on above: Order Comment: Speci men Type: BLOOD SPECIMENOrdering Facility: [facility] Address: [address] [place] [address] Performed By: #### 5 7021-8 ####[facility] LABCLIA [id number] [place] [address] Nucleated RBC (Bld) [#/Vol] 10*3/uL Normal <0.01 [facility] Comment on above: Order Comment: Speci men Type: BLOOD SPECIMENOrdering Facility: [facility] Address: [address] [place] [address] Performed By: #### 5 7021-8 ####[facility] LABCLIA [id number] [place] [address] Nucleated RBC/100 WBC (Bld) [Ratio] 0.0 /100 WBC Normal [facility] Comment on above: Order Comment: Speci men Type: BLOOD SPECIMENOrdering Facility: [facility] Address: [address] [place] [address] Performed By: #### 5 7021-8 ####[facility] LABCLIA [id number] [place] [address] Platelet mean volume (Bld) [Entitic vol] 9.2 fL Normal 9.0-12.7 [facility] Comment on above: Order Comment: Speci men Type: BLOOD SPECIMENOrdering Facility: [facility] Address: [address] [place] [address] Performed By: #### 5 7021-8 ####[facility] LABCLIA [id number] [place] [address] Platelets (Bld) [#/Vol] 178 10*3/uL Normal 150-400 [facility] Comment on above: Order Comment: Speci men Type: BLOOD SPECIMENOrdering Facility: [facility] Address: [address] [place] [address] Performed By: #### 5 7021-8 ####[facility] LABCLIA [id number] [place] [address] RBC (Bld) [#/Vol] 4.41 10*6/uL Normal 3.90-5.20 [facility] Comment on above: Order Comment: Speci men Type: BLOOD SPECIMENOrdering Facility: [facility] Address: [address] [place] [address] Performed By: #### 5 7021-8 ####[facility] LABIA [id number] [place] [address] WBC (Bld) [#/Vol] 2.83 10*3/uL Low 3.70-11.00 [facility] Comment on above: Order Comment: Speci men Type: BLOOD SPECIMENOrdering Facility: [facility] Address: [address] [place] [address] Performed By: #### 5 7021-8 ####[facility] LABCLIA [id number] [place] [address] CT ABD/PEL W IVCONon 023 CT ABD/PEL W IVCON * * *Final Report* * * DATE OF EXAM: Mar 10 2023 9:31AM [facility] 0530 - CT ABD/PEL W IVCON / PROCEDURE REASON: multiple diagnoses * * * * Physician Interpretation * * * * RESULT: EXAMINATION: CT ABDOMEN AND PELVIS WITH IV CONTRAST CLINICAL HISTORY: Gastrointestinal stromal tumor TECHNIQUE: CT of the abdomen and pelvis was performed using standard technique, scanning from just above the dome of the diaphragm to the symphysis pubis. MQ: CTAP_3 Contrast: IV: 110 ml of Omnipaque 300 Oral: 500 ml of Omni 240 10-25ml diluted with water CT Radiation dose: Integrated Dose-length product (DLP) for this visit = 522 mGy*cm. CT Dose Reduction Employed: Automated exposure control (AEC) COMPARISON: 11/04/22 RESULT: Liver: Hepatic cysts measuring up to 3-4 cm, stable. No new hepatic abnormalities. Biliary: Mild intrahepatic biliary ductal prominence, stable. Gallbladder is unremarkable. Spleen: No mass. No splenomegaly. Pancreas: No mass or duct dilation. Adrenals: No mass. Kidneys: Right renal cyst measuring up to 1-1.5 cm. No hydronephrosis or suspicious enhancing renal mass. GI tract: No dilation or wall thickening. Sigmoid colon and left colon diverticulosis is noted without evidence of diverticulitis. No evidence of appendicitis. Postoperative changes along the lesser curvature of the stomach, stable. Lymph nodes: Borderline abdominal lymphadenopathy. For example (short axis): 1.0 cm left periaortic (3: 42), previously 1.0 cm, stable 1.0 cm aortocaval (3: 43), previously 1.0 cm. Mesentery/Peritoneum: No ascites or mass. Retroperitoneum: No mass. Vasculature: - Abdominal aorta and iliac arteries: No aneurysm. - Celiac and SMA: Patent without stenosis. - Portal venous system (SMV, splenic vein, portal vein and branches): Patent. - Hepatic veins: Patent. Pelvis: No mass, ascites or fluid collection. Urinary bladder is decompressed. Bones/Soft Tissues: No new osseous abnormalities. Lower thorax: A chest CT performed will be reported separately. [address] (topogram) images: No additional findings. IMPRESSION: 1. No interval change since 11/04/22. 2. Borderline abdominal lymphadenopathy, stable. 3. Sigmoid colon and left colon diverticulosis without evidence of diverticulitis. 4. Mild intrahepatic biliary ductal prominence, stable. Transcribe Date/Time: Mar 10 2023 4:21P Dictated by: ROGER CANTU MD This examination was interpreted and the report reviewed and electronically signed by: ROGER CANTU MD on Mar 10 2023 4:28PM EST Thank you for allowing us to participate in the care of your patient. Should there be any questions regarding this interpretation, please call [phone]. If you are unable to reach us at the number above, please feel free to contact [facility] at [phone]. [id number] Normal [facility] CT CHEST W IVCONon 3 CT CHEST W IVCON * * *Final Report* * * DATE OF EXAM: Mar 10 2023 9:31AM [facility] 0539 - CT CHEST W IVCON / PROCEDURE REASON: multiple diagnoses * * * * Physician Interpretation * * * * RESULT: EXAMINATION: CHEST CT WITH CONTRAST CLINICAL HISTORY: Malignant gastrointestinal stromal tumor Technique: Spiral CT acquisition of the chest from the thoracic inlet to the upper abdomen following IV contrast. MQ: CTCW_6 Contrast: 110 mL Omnipaque [address] Radiation dose: Integrated Dose-length product (DLP) for this visit = 522 mGy*cm CT Dose Reduction Employed: Automated exposure control (AEC) Comparison: 07/24/22 RESULT: Limitations: None. Lines, tubes, and devices: None. Lung parenchyma and airways: Mild bilateral lower lung field reticular opacities and groundglass opacities, stable. Mucous plugging is noted in the right lower lobe (4: 131, 134). Prominent collateral vessels along the left major fissure (4: 82), stable. Subcentimeter nodular opacities measuring less than 5 mm, stable. For example: Right middle lobe (4:122) No new airspace opacities. The central airways are patent. Pleural space: No pleural effusion. No pleural thickening. Lower neck, lymph nodes, and mediastinum: The imaged thyroid gland is normal. Subcentimeter mediastinal lymph nodes, stable. Heart, pericardium, and thoracic vessels: The thoracic aorta and main pulmonary artery are normal in caliber. The cardiac chambers are normal in size. No pericardial effusion or thickening. Postoperative changes in the anterior chest. Aortic valve replacement is noted. Bones and soft tissues: No new osseous abnormalities. Upper abdomen: Please refer to the abdomen CT scan report for the abdomen findings. [address] (topogram) images: No additional findings. IMPRESSION: 1. No evidence of new intrathoracic abnormalities since 10/08/22. 2. Persistent prominent mucous plugging in the right lower lobe. 3. Subcentimeter nodular opacities measuring less than 5 mm, stable. 4. Mild bilateral lower lung field reticular opacities and groundglass opacities, stable. Transcribe Date/Time: Mar 10 2023 4:14P Dictated by: ROGER CANTU MD This examination was interpreted and the report reviewed and electronically signed by: ROGER CANTU MD on Mar 10 2023 4:28PM EST Thank you for allowing us to participate in the care of your patient. Should there be any questions regarding this interpretation, please call [phone]. If you are unable to reach us at the number above, please feel free to contact [facility] at [phone]. [id number] Normal [facility] Calcium.ionized [Moles/Vol]o n 03-10-2023 Calcium.ionized (Bld) [Mass/Vol] 1.32 mmol/L High 1.08-1.30 [facility] Comment on above: Order Comment: Speci men Type: BLOOD SPECIMENOrdering Facility: [facility] Address: [address] [place] [address] Performed By: #### 1 995-0 ####[facility] LABCLIA [id number] [address] [facility] Calcium.ionized adjusted to pH 7.4 (Bld) [Moles/Vol] 1.28 mmol/L Normal 1.08-1.30 [facility] Comment on above: Order Comment: Speci men Type: BLOOD SPECIMENOrdering Facility: [facility] Address: [address] [place] [address] Performed By: #### 1 995-0 ####[facility] LABCLIA [id number] [place] [address] [place] Comprehensive metabolic 2000 panelon 03-10-2023 Albumin [Mass/Vol] 4.2 g/dL Normal 3.9-4.9 [facility] Comment on above: Order Comment: Speci men Type: BLOOD SPECIMENOrdering Facility: [facility] Address: [address] [place] [address] Performed By: #### 2 4323-8, 2532-0, 2777-1, 3084-1 ####[facility] LABCLIA [id number] [place] [address] ALP [Catalytic activity/Vol] 104 U/L Normal 34-123 [facility] Comment on above: Order Comment: Speci men Type: BLOOD SPECIMENOrdering Facility: [facility] Address: [address] [place] [address] Performed By: #### 2 4323-8, 2532-0, 2777-1, 3084-1 ####[facility] LABCLIA [id number] [place] [address] ALT [Catalytic activity/Vol] 13 U/L Normal 7-38 [facility] Comment on above: Order Comment: Speci men Type: BLOOD SPECIMENOrdering Facility: [facility] Address: [address] [place] [address] Performed By: #### 2 4323-8, 2532-0, 7-1, 3084-1 ####[facility] LABCLIA [id number] [place] [address] Anion gap [Moles/Vol] 7 mmol/L Low 9-18 [facility] Comment on above: Order Comment: Speci men Type: BLOOD SPECIMENOrdering Facility: [facility] Address: [address] [place] [address] Performed By: #### 2 4323-8, 2532-0, 7-1, 3084-1 ####[facility] LABCLIA [id number] [place] [address] AST [Catalytic activity/Vol] 18 U/L Normal 13-35 [facility] Comment on above: Order Comment: Speci men Type: BLOOD SPECIMENOrdering Facility: [facility] Address: [address] [place] [address] Performed By: #### 2 4323-8, 2532-0, 7-1, 3084-1 ####[facility] LABCLIA [id number] [place] [address] Bilirubin [Mass/Vol] 0.8 mg/dL Normal 0.2-1.3 [facility] Comment on above: Order Comment: Speci men Type: BLOOD SPECIMENOrdering Facility: [facility] Address: [address] [place] [address] Performed By: #### 2 4323-8, 2532-0, 2776-1, 3083-1 ####[facility] LABCLIA [id number] [place] [address] Calcium [Mass/Vol] 10.1 mg/dL Normal 8.5-10.2 [facility] Comment on above: Order Comment: Speci men Type: BLOOD SPECIMENOrdering Facility: [facility] Address: [address] [place] [address] Performed By: #### 2 4323-8, 2532-0, 2776-1, 3083-1 ####[facility] LABCLIA [id number] [place] [address] Chloride [Moles/Vol] 104 mmol/L Normal 97-105 [facility] Comment on above: Order Comment: Speci men Type: BLOOD SPECIMENOrdering Facility: [facility] Address: [address] [place] [address] Performed By: #### 2 4323-8, 2532-0, 2776-1, 3083- ####[facility] LABIA [id number] [place] [address] CO2 [Moles/Vol] 27 mmol/L Normal 22-30 [facility] Comment on above: Order Comment: Speci men Type: BLOOD SPECIMENOrdering Facility: [facility] Address: [address] [place] [address] Performed By: #### 2 4323-8, 2-0, 2776-1, 3083-1 ####[facility] LABCLIA [id number] [place] [address] Creatinine [Mass/Vol] 0.76 mg/dL Normal 0.58-0.96 [facility] Comment on above: Order Comment: Speci men Type: BLOOD SPECIMENOrdering Facility: [facility] Address: [address] [place] [address] Performed By: #### 2 4323-8, 2532-0, 2777-1, 3084-1 ####[facility] LABCLIA [id number] [place] [address] ESTIMATED GLOMERULAR FILTRATION RATE 86 mL/min/1.73m??? Normal >=60 [facility] Comment on above: Order Comment: Shamar brothers Type: BLOOD SPECIMENOrdering Facility: [facility] Address: [address] [place] [address] Result Comment: Fatmata mated Glomerular Filtration Rate (eGFR) is calculated using the 2020 CKD-EPI creatinine equation. This equation utilizes serum creatinine, sex, and age as parameters. The creatinine assay has traceable calibration to isotope dilution-mass spectrometry. Refer to KDIGO guidelines for clinical interpretation. In patients with unstable renal function, e.g. those with acute kidney injury, the eGFR may not accurately reflect actual GFR. Performed By: #### 2 4323-8, 2532-0, 2777-1, 3084-1 ####[facility] LABCLIA [id number] [place] [address] Glucose [Mass/Vol] 94 mg/dL Normal 74-99 [facility] Comment on above: Order Comment: Ranciera brothers Type: BLOOD SPECIMENOrdering Facility: [facility] Address: [place] [address] Result Comment: The [place] Diabetes Association (ADA) provides guidance for cutoff values for fasting glucose and random glucose. The ADA defines fasting as no caloric intake for at least 8 hours. Fasting plasma glucose results between 100 to 125 mg/dL indicate increased risk for diabetes (prediabetes). Fasting plasma glucose results greater than or equal to 126 mg/dL meet the criteria for diagnosis of diabetes. In the absence of unequivocal hyperglycemia, results should be confirmed by repeat testing. In a patient with classic symptoms of hyperglycemia or hyperglycemic crisis, random plasma glucose results greater than or equal to 200 mg/dL meet the criteria for diagnosis of diabetes. Reference: Standards of Medical Care in Diabetes 2016, [place] Diabetes Association. Diabetes Care. 2016.39(Suppl 1). Performed By: #### 2 4323-8, 2532-0, 2777-1, 3084-1 ####[facility] LABCLIA [id number] [place] [address] Potassium [Moles/Vol] 3.7 mmol/L Normal 3.7-5.1 [facility] Comment on above: Order Comment: Speci men Type: BLOOD SPECIMENOrdering Facility: [facility] Address: [address] [id number] Performed By: #### 2 4323-8, 2532-0, 2777-1, 308-1 ####[facility] LABIA [id number] [place] [address] Protein [Mass/Vol] 9.3 g/dL High 6.3-8.0 [facility] Comment on above: Order Comment: Speci men Type: BLOOD SPECIMENOrdering Facility: [facility] Address: [address] [address] Performed By: #### 2 4323-8, 2532-0, 2776-1, 3083-1 ####[facility] LABIA [id number] [place] [address] Sodium [Moles/Vol] 138 mmol/L Normal 136-144 [facility] Comment on above: Order Comment: Speci men Type: BLOOD SPECIMENOrdering Facility: [facility] Address: [address] [phone] Performed By: #### 2 4323-8, 2532-0, 2777-1, 3083-1 ####[facility] LABIA [id number] [place] [address] Urea nitrogen [Mass/Vol] 15 mg/dL Normal 7-21 [facility] Comment on above: Order Comment: Speci men Type: BLOOD SPECIMENOrdering Facility: [facility] Address: [address] [phone] Performed By: #### 2 4323-8, 2532-0, 2777-1, 3084-1 ####[facility] LABCLIA [id number] [place] [address] Ferritin SerPl-mCncon 2022 Ferritin [Mass/Vol] 83.5 ng/mL Normal 14.7-205.1 [facility] Comment on above: Order Comment: Speci men Type: BLOOD SPECIMENOrdering Facility: [facility] Address: [address] [phone] Performed By: #### 2 276-4, 1951-10, ####[facility] LABCLIA [id number] [place] [address] [place] Folate SerPl-mCncon 03-10-20 23 Folate [Mass/Vol] ng/mL Normal >4.7 [facility] Comment on above: Order Comment: Speci men Type: BLOOD SPECIMEN Ordering [facility]: [facility] Address: [address] [place] [address] Result Comment: A re sult of > 20 ng/mL is not necessarily indicative of a pathologic or treatable condition: it reflects a limitation of the test methodology. Assay reference range: 4.8 to 24.2 ng/mL. Suitable for detection of folate deficiency. Reference: Folate III (Folate III) [package insert V 1.0 Burmese]. [facility], [place], [place]: August 2015. Performed By: #### 2 276-4, 1951-10, #### [facility] CLIA [id number] [address] [id number] [place] IMMUNOFIXATION SCREEN, SERUM on 03-10-2023 MPA RESULT No M protein is identified. Normal No M protein is identified. [facility] Comment on above: Order Comment: Speci men Type: BLOOD SPECIMEN [facility]: [facility] Address: [address] [place] [address] Performed By: #### 2 276-4, 1951-10, #### [facility] CLIA [id number] [address] [id number] [place] STAFF REVIEW (MPA) Reviewed by Karol Hoang M.D., Ph.D Normal [facility] Comment on above: Order Comment: Speci men Type: BLOOD SPECIMEN [facility]: [facility] Address: [address] [place] [address] Performed By: #### 2 276-4, 1951-10, #### [facility] CLIA [id number] [address] [id number] [place] IMMUNOGLOBULINS GAMon 2022 IgA [Mass/Vol] 413 mg/dL High 70-400 [facility] Comment on above: Order Comment: Speci men Type: BLOOD SPECIMEN [facility]: [facility] Address: [address] [place] [address] Performed By: #### 2 276-4, 1951-10, #### [facility] CLIA [id number] [address] [id number] [place] IgG [Mass/Vol] 4096 mg/dL High 700-1600 [facility] Comment on above: Order Comment: Speci men Type: BLOOD SPECIMEN [facility]: [facility] Address: [address] [place] [address] Performed By: #### 2 276-4, 1951-10, #### [facility] CLIA [id number] [address] [address] [place] IgM [Mass/Vol] 70 mg/dL Normal 40-230 [facility] Comment on above: Order Comment: Speci men Type: BLOOD SPECIMEN [facility]: [facility] Address: [address] [place] [address] Performed By: #### 2 276-4, 1951-10, #### [facility] CLIA [id number] [address] [place] [address] [place] Iron and Iron binding capaci ty panelon 03-10-2023 Iron [Mass/Vol] 122 ug/dL Normal 41-186 [facility] Comment on above: Order Comment: Speci men Type: BLOOD SPECIMENOrdering Facility: [facility] Address: [address] [place] [address] Performed By: #### 2 276-4, 1951-10, 65908-7 ####[facility] LABIA [id number] [place] [address] [place] Iron binding capacity [Mass/Vol] 284 ug/dL Normal 232-386 [facility] Comment on above: Order Comment: Speci men Type: BLOOD SPECIMENOrdering Facility: [facility] Address: [address] [place] [address] Performed By: #### 2 276-4, 1951-10, 57680-5 ####[facility] LABIA [id number] [address] STATES OF [facility] Iron/TIBC [Molar ratio] 43.0 % Normal 15.0-57.0 [facility] Comment on above: Order Comment: Speci men Type: BLOOD SPECIMENOrdering Facility: [facility] Address: [address] [place] [address] Performed By: #### 2 276-4, 1951-10, 43605-7 ####[facility] LABIA [id number] [place] [id number] [place],FREE,SERon 2022 Immunoglobulin light chains.kappa.free (S) [Mass/Vol] 85.7 mg/L High 3.3-19.4 [facility] Comment on above: Order Comment: Speci men Type: BLOOD SPECIMENOrdering Facility: [facility] Address: [address] [place] [address] Result Comment: Rare ly, increased serum free light chains levels may not be detected or accurately quantified due to prozone phenomenon or in high viscosity samples using this immunoturbidimetric assay. Correlation with other laboratory results and clinical findings is recommended. The [place] Free Light Chain was performed using the Binding Site Optilite immunoturbidimetric method. Result obtained with different assay methods or kits cannot be used interchangeably. Performed By: #### K LFRS ####[facility] LABCLIA [id number] [place] [address] [place] Immunoglobulin light chains.kappa/Immunogl obulin light chains.lambda (S) [Mass ratio] 2.63 High 0.26-1.65 [facility] Comment on above: Order Comment: Speci men Type: BLOOD SPECIMENOrdering Facility: [facility] Address: [address] [place] [address] Performed By: #### K LFRS ####[facility] LABCLIA [id number] [address] Immunoglobulin light chains.lambda.free [Mass/Vol] 32.6 mg/L High 5.7-26.3 [facility] Comment on above: Order Comment: Speci men Type: BLOOD SPECIMENOrdering Facility: [facility] Address: [address] [place] [address] Result Comment: Rare ly, increased serum free light chains levels may not be detected or accurately quantified due to prozone phenomenon or in high viscosity samples using this immunoturbidimetric assay. Correlation with other laboratory results and clinical findings is recommended. The [place] Free Light Chain was performed using the Binding Site Optilite immunoturbidimetric method. Result obtained with different assay methods or kits cannot be used interchangeably. Performed By: #### K LFRS ####[facility] LABIA [id number] [place] [address] [place] LDH SerPl-cCncon 03-10-2023 LDH [Catalytic activity/Vol] 201 U/L Normal 135-214 [facility] Comment on above: Order Comment: Speci men Type: BLOOD SPECIMENOrdering Facility: [facility] Address: [address] [address] Performed By: #### 2 4323-8, 2532-0, 2777-1, 3084-1 ####[facility] LABCLIA [id number] [place] [address] PROTEIN ELECTROPHORESIS SERU M (P)on 03-10-2023 Albumin [Mass/Vol] 4.09 g/dL Normal 3.43-5.41 [facility] Comment on above: Order Comment: Speci men Type: BLOOD SPECIMENOrdering Facility: [facility] Address: [address] [address] Performed By: #### L [id number] ####[facility] LABCLIA [id number] [place] [address] [place] Alpha 1 globulin Elph [Mass/Vol] 0.23 g/dL Normal 0.18-0.43 [facility] Comment on above: Order Comment: Speci men Type: BLOOD SPECIMENOrdering Facility: [facility] Address: [address] [address] Performed By: #### L [id number] ####[facility] LABCLIA [id number] [place] [address] [place] Alpha 2 globulin Elph [Mass/Vol] 0.37 g/dL Low 0.42-0.98 [facility] Comment on above: Order Comment: Speci men Type: BLOOD SPECIMENOrdering Facility: [facility] Address: [address] [address] Performed By: #### L [id number] ####[facility] LABCLIA [id number] [place] [address] [place] Beta globulin Elph [Mass/Vol] 0.87 g/dL Normal 0.61-1.17 [facility] Comment on above: Order Comment: Speci men Type: BLOOD SPECIMENOrdering Facility: [facility] Address: [address] [address] Performed By: #### L [id number] ####[facility] LABCLIA [id number] [address] Gamma globulin Elph [Mass/Vol] 3.44 g/dL High 0.53-1.51 [facility] Comment on above: Order Comment: Speci men Type: BLOOD SPECIMENOrdering Facility: [facility] Address: [address] [place] [address] Performed By: #### L [id number] ####[facility] LABIA [id number] [address] M-PROTEIN LOCATION Normal [facility] Comment on above: Order Comment: Speci men Type: BLOOD SPECIMENOrdering Facility: [facility] Address: [address] [place] [address] Result Comment: Not Applicable. Performed By: #### L [id number] ####[facility] [id number] [address] Protein Fractions [Interp] No definitive M protein is identified on protein electrophoresis. Normal No definitive M protein is identified on protein electrophore sis. [facility] Comment on above: Order Comment: Speci men Type: BLOOD SPECIMENOrdering Facility: [facility] Address: [address] [place] [address] Performed By: #### L [id number] ####[facility] LABIA [id number] [address] Protein.monoclonal Elph [Mass/Vol] 0.00 g/dL Normal <=0.00 [facility] Comment on above: Order Comment: Speci men Type: BLOOD SPECIMENOrdering Facility: [facility] Address: [address] [place] [address] Performed By: #### L [id number] ####[facility] LABIA [id number] [address] [place] SPE STAFF REVIEW Reviewed by Karol Hoang M.D., Ph.D Normal [facility] Comment on above: Order Comment: Speci men Type: BLOOD SPECIMENOrdering Facility: [facility] Address: [address] [place] [address] Performed By: #### L [id number] ####[facility] LABCLIA [id number] [place] [address] [place] Phosphate SerPl-mCncon 03-10 Phosphate [Mass/Vol] 3.6 mg/dL Normal 2.7-4.8 [facility] Comment on above: Order Comment: Speci men Type: BLOOD SPECIMENOrdering Facility: [facility] Address: [address] [place] [address] Performed By: #### 2 4323-8, 2532-0, 2777-1, 3084-1 ####[facility] LABCLIA [id number] [place] [address] Prot SerPl-mCncon 03-10-2023 Protein [Mass/Vol] 9.0 g/dL High 6.3-8.0 [facility] Comment on above: Order Comment: Speci men Type: BLOOD SPECIMEN [facility]: [facility] Address: [address] [place] [address] Performed By: #### 2 276-4, 1952-1, 26034-7 #### [facility] CLIA [id number] [address] [place] [address] [place] Urate SerPl-mCncon 3 Urate [Mass/Vol] 3.1 mg/dL Normal 2.5-6.6 [facility] Comment on above: Order Comment: Speci men Type: BLOOD SPECIMENOrdering Facility: [facility] Address: [address] [place] [address] Performed By: #### 2 4323-8, 2532-0, 2777-1, 3084-1 ####[facility] LABCLIA [id number] [place] [address] Vit B12 SerPl-mCncon 023 Cobalamin (Vitamin B12) [Mass/Vol] pg/mL High 232-1245 [facility] Comment on above: Order Comment: Speci men Type: BLOOD SPECIMEN [facility]: [facility] Address: [address] [place] [address] Performed By: #### 2 276-4, 1952-1, 61759-4 #### [facility] CLIA [id number] [address] [facility] [id number] [address] [place] B2 MICROGLOBULIN Bon 023 Mttu-4-Kbkmmrzwquvhr [Mass/Vol] 2.5 ug/mL <3.1 mg/L [facility] CBC W Auto Differential pane l (Bld)on 11-11-2022 Basophils (Bld) [#/Vol] <0.11 k/uL [facility] Basophils/100 WBC (Bld) 0.5 % [facility] Differential cell count method Nom (Bld) Auto [facility] Eosinophils (Bld) [#/Vol] 0.14 10*3/uL <0.46 k/uL [facility] Eosinophils/100 WBC (Bld) 3.8 % [facility] Erythrocyte distribution width (RBC) [Ratio] 12.6 % 11.5 - 15.0 % [facility] Hematocrit (Bld) [Volume fraction] 40.7 % 36.0 - 46.0 % [facility] Hemoglobin (Bld) [Mass/Vol] 13.3 g/dL 11.5 - 15.5 g/dL [facility] Immature granulocytes (Bld) [#/Vol] <0.10 k/uL [facility] Immature granulocytes/100 WBC (Bld) 0.3 % [facility] Lymphocytes (Bld) [#/Vol] 0.95 10*3/uL Low 1.00 - 4.00 k/uL [facility] Lymphocytes/100 WBC (Bld) 25.5 % [facility] MCH (RBC) [Entitic mass] 30.0 pg 26.0 - 34.0 pg [facility] MCHC (RBC) [Mass/Vol] 32.7 g/dL 30.5 - 36.0 g/dL [facility] MCV (RBC) [Entitic vol] 91.9 fL 80.0 - 100.0 fL [facility] Monocytes (Bld) [#/Vol] 0.29 10*3/uL <0.87 k/uL [facility] Monocytes/100 WBC (Bld) 7.8 % [facility] Neutrophils (Bld) [#/Vol] 2.32 10*3/uL 1.45 - 7.50 k/uL [facility] Neutrophils/100 WBC (Bld) 62.1 % [facility] Nucleated RBC (Bld) [#/Vol] <0.01 k/uL [facility] Nucleated RBC/100 WBC (Bld) [Ratio] 0.0 /100 WBC [facility] Platelet mean volume (Bld) [Entitic vol] 8.8 fL Low 9.0 - 12.7 fL [facility] Platelets (Bld) [#/Vol] 198 10*3/uL 150 - 400 k/uL [facility] RBC (Bld) [#/Vol] 4.43 10*6/uL 3.90 - 5.2 0 m/uL [facility] WBC (Bld) [#/Vol] 3.73 10*3/uL 3.70 - 11. 00 k/uL [facility] Calcium.ionized [Moles/Vol]o n 11-11-2022 Calcium.ionized (Bld) [Mass/Vol] 1.30 mmol/L 1.08 - 1.30 mmol/L [facility] Calcium.ionized adjusted to pH 7.4 (Bld) [Moles/Vol] 1.29 mmol/L 1.08 - 1.30 mmol/L [facility] Comprehensive metabolic 2000 panelon 11-11-2022 Albumin [Mass/Vol] 4.3 g/dL 3.9 - 4.9 g/dL [facility] ALP [Catalytic activity/Vol] 113 U/L 34 - 123 U/L [facility] ALT [Catalytic activity/Vol] 17 U/L 7 - 38 U/L [facility] Anion gap [Moles/Vol] 7 mmol/L Low 9 - 18 mmol/L [facility] AST [Catalytic activity/Vol] 24 U/L 13 - 35 U/L [facility] Bilirubin [Mass/Vol] 0.4 mg/dL 0.2 - 1 .3 mg/dL [facility] Calcium [Mass/Vol] 9.9 mg/dL 8.5 - 10. 2 mg/dL [facility] Chloride [Moles/Vol] 102 mmol/L 97 - 10 5 mmol/L [facility] CO2 [Moles/Vol] 26 mmol/L 22 - 30 mmol/L [facility] Creatinine [Mass/Vol] 0.73 mg/dL 0.58 - 0.96 mg/dL [facility] Estimated Glomerular Filtration Rate 90 mL/min/1.73m >=60 mL/min/1.73m [facility] Glucose [Mass/Vol] 91 mg/dL 74 - 99 mg/dL [facility] Potassium [Moles/Vol] 4.3 mmol/L 3.7 - 5.1 mmol/L [facility] Protein [Mass/Vol] 8.9 g/dL High 6.3 - 8.0 g/dL [facility] Sodium [Moles/Vol] 135 mmol/L Low 136 - 144 mmol/L [facility] Urea nitrogen [Mass/Vol] 17 mg/dL 7 - 21 mg/dL [facility] LD LACTATE DEHYDROon 023 LDH [Catalytic activity/Vol] 208 U/L 135 - 214 U/L [facility] PHOSPHORUS INORGANICon 11-11 Phosphate [Mass/Vol] 3.9 mg/dL 2.7 - 4 .8 mg/dL [facility] URIC ACID BLOODon 11-11-2022 Urate [Mass/Vol] 3.2 mg/dL 2.5 - 6.6 mg/dL [facility] Basophils Auto (Bld) [#/Vol] Ordered By: Kassie Arroyo on 10-09-2022 Basophils (Bld) [#/Vol] 0.0 10*3/uL 0.0-0.2 [facility] Basophils/100 WBC Auto (Bld) Ordered By: Kassie Arroyo on 10-09-2022 Basophils/100 WBC (Bld) 0.3 % . [facility] Creatinine and Glomerular fi ltration rate.predicted panel (S/P/Bld)Ordered By: Kassie Arroyo on 10-09-2022 Creatinine [Mass/Vol] 0.71 mg/dL 0.44-1.03 [facility] Eosinophils Auto (Bld) [#/Vo l]Ordered By: Kassie Arroyo on 10-09-2022 Eosinophils (Bld) [#/Vol] 0.0 10*3/uL 0.0-0.45 [facility] Eosinophils/100 WBC Auto (Bl d)Ordered By: Kassie Arroyo on 10-09-2022 Eosinophils/100 WBC (Bld) 0.7 % . [facility] Erythrocyte distribution wid th Auto (RBC) [Ratio]Ordered By: Kassie Arroyo on 10-09-2022 Erythrocyte distribution width (RBC) [Ratio] 13.8 % 11.9-15.3 [facility] Estimated glomerular filtrat ion rate (GFR) non- AmericanOrdered By: Kassie Arroyo on 10-09-2022 GFR/1.73 sq M.predicted among non-blacks MDRD (S/P/Bld) [Vol rate/Area] > 60 mL/Min [facility] Haptoglobin [Mass/volume] in Serum or PlasmaOrdered By: Kassie Arroyo on 10-09-2022 Haptoglobin [Mass/Vol] mg/dL 37-246 [facility] Hematocrit Auto (Bld) [Volum e fraction]Ordered By: Kassie Arroyo on 10-09-2022 Hematocrit (Bld) [Volume fraction] 39.9 % 34.0-46.4 [facility] Hemoglobin [Mass/volume] in BloodOrdered By: Kassie Arroyo on 10-09-2022 Hemoglobin (Bld) [Mass/Vol] 13.2 g/dL 11.8-15.4 [facility] Laboratory - Chemistry and C hemistry - challengeOrdered By: Kassie Arroyo on 10-09-2022 Magnesium [Mass/Vol] 2.2 mg/dL 1.6-2.6 [facility] Lactate dehydrogenase measur ement (enzymatic activity/volume)Ordered By: Kassie Arroyo on 10-09-2022 LDH (Unsp spec) [Catalytic activity/Vol] 154 U/L 45-190 [facility] Leukocytes [#/volume] correc maddi for nucleated erythrocytes in Blood by Automated counOrdered By: Kassie Arroyo on 10-09-2022 WBC corrected for nucl RBC Auto (Bld) [#/Vol] 4.9 10*3/uL 3.8-11.6 [facility] Lymphocytes Auto (Bld) [#/Vo l]Ordered By: Kassie Arroyo on 10-09-2022 Lymphocytes (Bld) [#/Vol] 0.7 10*3/uL 1.00-4.8 [facility] Lymphocytes/100 WBC Auto (Bl d)Ordered By: Kassie Arroyo on 10-09-2022 Lymphocytes/100 WBC (Bld) 13.9 % . [facility] MCH Auto (RBC) [Entitic mass ]Ordered By: Kassie Arroyo on 10-09-2022 MCH (RBC) [Entitic mass] 29.9 pg 24.7-34.3 [facility] MCHC Auto (RBC) [Mass/Vol]Or dered By: Kassie Arroyo on 10-09-2022 MCHC (RBC) [Mass/Vol] 33.0 g/dL 32.0-35.0 [facility] MCV Auto (RBC) [Entitic vol] Ordered By: Kassie Arroyo on 10-09-2022 MCV (RBC) [Entitic vol] 90.8 fL 80-100 [facility] Monocytes Auto (Bld) [#/Vol] Ordered By: Kassie Arroyo on 10-09-2022 Monocytes (Bld) [#/Vol] 0.2 10*3/uL 0.0-0.8 [facility] Monocytes/100 WBC Auto (Bld) Ordered By: Kassie Arroyo on 10-09-2022 Monocytes/100 WBC (Bld) 4.7 % . [facility] Neutrophils Auto (Bld) [#/Vo l]Ordered By: Kassie Arroyo on 10-09-2022 Neutrophils (Bld) [#/Vol] 3.9 10*3/uL 1.8-7.7 [facility] Neutrophils/100 WBC Auto (Bl d)Ordered By: Kassie Arroyo on 10-09-2022 Neutrophils/100 WBC (Bld) 80.4 % . [facility] No Panel InformationOrdered By: Kassie Arroyo on 10-09-2022 Estimated GFR () > 60 mL/Min [facility] Comment on above: GFR estimated refere nce range: According to KDOQI guidelines, <60 ml/min/1.73m2 is sufficient to diagnose a patient with chronic kidney disease. Pharmacy Creatinine Clearance (Chem N/A [facility] Nucleated erythrocytes [Pres ence] in Blood by Automated countOrdered By: Kassie Arroyo on 10-09-2022 Nucleated RBC Auto Ql (Bld) 0.1 /100{WBC} 0-0.5 [facility] Phosphate [Mass/volume] in S rogelio or PlasmaOrdered By: Kassie Arroyo on 10-09-2022 Phosphate [Mass/Vol] 4.0 mg/dL 2.5-4.6 [facility] Platelet mean volume Auto (B ld) [Entitic vol]Ordered By: Kassie Arroyo on 10-09-2022 Platelet mean volume (Bld) [Entitic vol] 7.4 fL 6.3-10.7 [facility] Platelets Auto (Bld) [#/Vol] Ordered By: Kasise Arroyo on 10-09-2022 Platelets (Bld) [#/Vol] 222 10*3/uL 150-450 [facility] RBC Auto (Bld) [#/Vol]Ordere d By: Kassie Arroyo on 10-09-2022 RBC (Bld) [#/Vol] 4.40 10*6/uL 3.60-5.00 [facility] Serum or plasma calcium mary urement (mass/volume)Ordered By: Kassie Arroyo on 10-09-2022 Calcium [Mass/Vol] 9.4 mg/dL 8.2-10.2 [facility] Serum or plasma intact parat hyroid hormone measurement (mass/volume)Ordered By: Kassie Arroyo on 10-09-2022 Parathyrin.intact [Mass/Vol] 40.9 pg/mL 12 [facility] Serum or plasma urea nitroge n measurement (mass/volume)Ordered By: Kassie Arroyo on 10-09-2022 Urea nitrogen [Mass/Vol] 15 mg/dL 9-23 [facility] TSH DL <= 0.005 mIU/L QnOrde red By: Kassie Arroyo on 10-09-2022 TSH Qn 1.94 m[IU]/L 0.45-5.33 [facility] WBC Auto (Bld) [#/Vol]Ordere d By: Kassie Arroyo on 10-09-2022 WBC (Bld) [#/Vol] 4.9 10*3/uL 3.8-11.6 [facility] Automated erythrocytes count in urine sediment (number/area)Ordered By: Kassie Arroyo on 09-16-2022 RBC Auto (Urine sed) [#/Area] 3-4 [HPF] 0-4 [facility] Automated leukocytes count i n urine sediment (number/area)Ordered By: Kassie Arroyo on 09-16-2022 WBC Auto (Urine sed) [#/Area] 10-19 [HPF] 0-4 [facility] Basophils Auto (Bld) [#/Vol] Ordered By: Kassie Arroyo on 09-16-2022 Basophils (Bld) [#/Vol] 0.0 10*3/uL 0.0-0.2 [facility] Basophils/100 WBC Auto (Bld) Ordered By: Kassie Arroyo on 09-16-2022 Basophils/100 WBC (Bld) 0.3 % . [facility] Bilirubin Test strip Ql (U)O rdered By: Kassie Arroyo on 09-16-2022 Bilirubin Ql (U) Negative Negative [facility] C reactive protein [Mass/vol ume] in Serum or PlasmaOrdered By: Kassie Arroyo on 09-16-2022 CRP [Mass/Vol] 0.6 mg/dL 0.0-1.0 [facility] Color Auto (U)Ordered By: Sophia Arroyo on 09-16-2022 Color (U) Yellow Yellow [facility] Creatinine and Glomerular fi ltration rate.predicted panel (S/P/Bld)Ordered By: Kassie Arroyo on 09-16-2022 Creatinine [Mass/Vol] 0.82 mg/dL 0.44-1.03 [facility] Eosinophils Auto (Bld) [#/Vo l]Ordered By: Kassie Arroyo on 09-16-2022 Eosinophils (Bld) [#/Vol] 0.2 10*3/uL 0.0-0.45 [facility] Eosinophils/100 WBC Auto (Bl d)Ordered By: Kassie Arroyo on 09-16-2022 Eosinophils/100 WBC (Bld) 3.4 % . [facility] Erythrocyte distribution wid th Auto (RBC) [Ratio]Ordered By: Kassie Arroyo on 09-16-2022 Erythrocyte distribution width (RBC) [Ratio] 13.7 % 11.9-15.3 [facility] Erythrocyte sedimentation ra te by Photometric methodOrdered By: Kassie Arroyo on 09-16-2022 ESR Photometric method (Bld) [Velocity] 27 mm/hr 0-29 [facility] Estimated glomerular filtrat ion rate (GFR) non- AmericanOrdered By: Kassie Arroyo on 09-16-2022 GFR/1.73 sq M.predicted among non-blacks MDRD (S/P/Bld) [Vol rate/Area] > 60 mL/Min [facility] Hematocrit Auto (Bld) [Volum e fraction]Ordered By: Kassie Arroyo on 09-16-2022 Hematocrit (Bld) [Volume fraction] 42.1 % 34.0-46.4 [facility] Hemoglobin [Mass/volume] in BloodOrdered By: Kassie Arroyo on 09-16-2022 Hemoglobin (Bld) [Mass/Vol] 13.8 g/dL 11.8-15.4 [facility] Ketones Auto test strip (U) [Mass/Vol]Ordered By: Kassie Arroyo on 09-16-2022 Ketones (U) [Mass/Vol] Negative Negative [facility] Laboratory - UrinalysisOrder ed By: Kassie Arroyo on 09-16-2022 Hyaline casts LM Ql (Urine sed) 0-8 [LPF] 0-8 [facility] Leukocytes [#/volume] correc maddi for nucleated erythrocytes in Blood by Automated counOrdered By: Kassie Arroyo on 09-16-2022 WBC corrected for nucl RBC Auto (Bld) [#/Vol] 4.6 10*3/uL 3.8-11.6 [facility] Lymphocytes Auto (Bld) [#/Vo l]Ordered By: Kassie Arroyo on 09-16-2022 Lymphocytes (Bld) [#/Vol] 1.2 10*3/uL 1.00-4.8 [facility] Lymphocytes/100 WBC Auto (Bl d)Ordered By: Kassie Arroyo on 09-16-2022 Lymphocytes/100 WBC (Bld) 26.1 % . [facility] MCH Auto (RBC) [Entitic mass ]Ordered By: Kassie Arroyo on 09-16-2022 MCH (RBC) [Entitic mass] 29.3 pg 24.7-34.3 [facility] MCHC Auto (RBC) [Mass/Vol]Or dered By: Kassie Arroyo on 09-16-2022 MCHC (RBC) [Mass/Vol] 32.8 g/dL 32.0-35.[address] [facility] MCV Auto (RBC) [Entitic vol] Ordered By: Kassie Arroyo on 09-16-2022 MCV (RBC) [Entitic vol] 89.6 fL 80-100 [facility] Monocytes Auto (Bld) [#/Vol] Ordered By: Kassie Arroyo on 09-16-2022 Monocytes (Bld) [#/Vol] 0.5 10*3/uL 0.0-0.8 [facility] Monocytes/100 WBC Auto (Bld) Ordered By: Kassie Arroyo on 09-16-2022 Monocytes/100 WBC (Bld) 11.2 % . [facility] Neutrophils Auto (Bld) [#/Vo l]Ordered By: Kassie Arroyo on 09-16-2022 Neutrophils (Bld) [#/Vol] 2.7 10*3/uL 1.8-7.7 [facility] Neutrophils/100 WBC Auto (Bl d)Ordered By: Kassie Arroyo on 09-16-2022 Neutrophils/100 WBC (Bld) 59.0 % . [facility] Nitrite Test strip Ql (U)Ord ered By: Kassie Arroyo on 09-16-2022 Nitrite Ql (U) Positive Negative [facility] No Panel InformationOrdered By: Kassie Arroyo on 09-16-2022 Estimated GFR () > 60 mL/Min [facility] Comment on above: GFR estimated refere nce range: According to KDOQI guidelines, <60 ml/min/1.73m2 is sufficient to diagnose a patient with chronic kidney disease. Pharmacy Creatinine Clearance (Chem N/A [facility] Nucleated erythrocytes [Pres ence] in Blood by Automated countOrdered By: Kassie Arroyo on 09-16-2022 Nucleated RBC Auto Ql (Bld) 0.1 /100{WBC} 0-0.5 [facility] Platelet mean volume Auto (B ld) [Entitic vol]Ordered By: Kassie Arroyo on 09-16-2022 Platelet mean volume (Bld) [Entitic vol] 7.3 fL 6.3-10.7 [facility] Platelets Auto (Bld) [#/Vol] Ordered By: Kassie Arroyo on 09-16-2022 Platelets (Bld) [#/Vol] 218 10*3/uL 150-450 [facility] Protein Auto test strip (U) [Mass/Vol]Ordered By: Kassie Arroyo on 09-16-2022 Protein (U) [Mass/Vol] Trace mg/dL Negative [facility] RBC Auto (Bld) [#/Vol]Ordere d By: Kassie Arroyo on 09-16-2022 RBC (Bld) [#/Vol] 4.70 10*6/uL 3.60-5.00 [facility] Serum or plasma complement C 3 measurement (mass/volume)Ordered By: Kassie Arroyo on 09-16-2022 Complement C3 [Mass/Vol] 96 mg/dL 82-167 [facility] Comment on above: Performed at: [address] [id number] Director: Roland Hess PhD, Phone: [phone] Serum or plasma complement C 4 measurement (mass/volume)Ordered By: Kassie Arroyo on 09-16-2022 Complement C4 [Mass/Vol] 10 mg/dL 12-38 [facility] Specific gravity Auto test s trip (U) [Rel density]Ordered By: Kassie Arroyo on 09-16-2022 Specific gravity (U) [Rel density] 1.020 1.001-1.030 [facility] Squamous epithelial cells de tection in urine sediment by light microscopyOrdered By: Kassie Arroyo on 09-16-2022 Epithelial cells.squamous LM Ql (Urine sed) 3-4 [HPF] 0-2 [facility] Urine bacteria detection by automated methodOrdered By: Kassie Arroyo on 09-16-2022 Bacteria Auto Ql (U) 4+ None Seen [facility] Urine clarity by refractomet ry automatedOrdered By: Kassie Arroyo on 09-16-2022 Clarity Refractometry automated (U) Cloudy Clear [facility] Urine culture routineOrdered By: Kassie Arroyo on 09-16-2022 Bacteria identified Cx Nom (U) Escherichia coli [facility] Urine glucose measurement by automated test strip (mass/volume)Ordered By: Kassie Arroyo on 09-16-2022 Glucose Auto test strip (U) [Mass/Vol] Normal mg/dL Normal [facility] Urine hemoglobin detection b y automated test stripOrdered By: Kassie Arroyo on 09-16-2022 Hemoglobin Auto test strip Ql (U) Negative Negative [facility] Urine leukocyte esterase det ection by automated test stripOrdered By: Kassie Arroyo on 09-16-2022 Leukocyte esterase Auto test strip Ql (U) 2+ Negative [facility] Urobilinogen Auto test strip (U) [Mass/Vol]Ordered By: Kassie Arroyo on 09-16-2022 Urobilinogen (U) [Mass/Vol] Normal mg/dL Normal [facility] WBC Auto (Bld) [#/Vol]Ordere d By: Kassie Arroyo on 09-16-2022 WBC (Bld) [#/Vol] 4.6 10*3/uL 3.8-11.6 [facility] pH Auto test strip (U)Ordere d By: Kassie Arroyo on 09-16-2022 pH (U) 5.5 [pH] 5.0-9.0 [facility] COVID Quick Testingon 2021 Result Negative [facility] Other Urine culture routineOrdered By: Summer Galvan on 2022 Bacteria identified Cx Nom (U) 2 Days [facility] QUANTIFERON TB GOLD PLUSon 0 05-17-2022 QuantiFERON Criteria Comment Normal [facility] Comment on above: Result Comment: Reid tiFERON-TB Gold Plus is a qualitative indirect test for M tuberculosis infection (including disease) and is intended for use in conjunction with risk assessment, radiography, and other medical and diagnostic evaluations. The QuantiFERON-TB Gold Plus result is determined by subtracting the Nil value from either TB antigen (Ag) value. The Mitogen tube serves as a control for the test. Performed By: #### Q NTTB #### [facility] [address] [place] [address] Dr. Arben Ro QuantiFERON Incubation Incubation performed. Normal [facility] Comment on above: Performed By: #### Q NTTB #### [facility] [address] [place] [address] Dr. Arben Ro QuantiFERON Mitogen Value 7.12 IU/mL Normal [facility] Comment on above: Performed By: #### Q NTTB #### [facility] [address] [place] [address] Dr. Arben Ro QuantiFERON Nil Value 0.02 IU/mL Normal [facility] Comment on above: Performed By: #### Q NTTB #### [facility] [address] [place] [address] Dr. Arben Ro QuantiFERON TB1 Ag Value 0.01 IU/mL Normal [facility] Comment on above: Performed By: #### Q NTTB #### [facility] [address] [place] [address] Dr. Arben Ro QuantiFERON TB2 Ag Value 0.01 IU/mL Normal [facility] Comment on above: Performed By: #### Q NTTB #### [facility] [address] [place] [address] Dr. Arben Ro QuantiFERON-TB Gold Plus Negative Normal Negative [facility] Comment on above: Result Comment: No r esponse to M tuberculosis antigens detected. Infection with M tuberculosis is unlikely, but high risk individuals should be considered for additional testing (ATS/IDSA/CDC Clinical Practice Guidelines, 2017). The reference range is an Antigen minus Nil result of <0.35 IU/mL. Chemiluminescence immunoassay methodology Performed By: #### Q NTTB #### [facility] [address] [address] [address] Arben Ro Albumin [Mass/volume] in Ser um or PlasmaOrdered By: Summer Galvan on 05-16-2022 Albumin [Mass/Vol] 3.2 g/dL 3.2-5.5 [facility] Automated erythrocytes count in urine sediment (number/area)Ordered By: Summer Galvan on 05-16-2022 RBC Auto (Urine sed) [#/Area] 20-49 [HPF] 0-4 [facility] Automated leukocytes count i n urine sediment (number/area)Ordered By: Summer Galvan on 05-16-2022 WBC Auto (Urine sed) [#/Area] 20-49 [HPF] 0-4 [facility] Automated urine hyaline cast s count (number/volume)Ordered By: Summer Galvan on 05-16-2022 Hyaline casts Auto (U) [#/Vol] None seen [LPF] 0-1 [facility] Basophils Auto (Bld) [#/Vol] Ordered By: Summer Galvan on 05-16-2022 Basophils (Bld) [#/Vol] 0.0 10*3/uL 0.0-0.2 [facility] Basophils/100 WBC Auto (Bld) Ordered By: Summer Galvan on 05-16-2022 Basophils/100 WBC (Bld) 0.1 % . [facility] Bilirubin Test strip Ql (U)O rdered By: Summer Galvan on 05-16-2022 Bilirubin Ql (U) Negative Negative [facility] Blood hemoglobin measurement (mass/volume)Ordered By: Summer Galvan on 05-16-2022 Hemoglobin (Bld) [Mass/Vol] 11.8 g/dL 11.8-15.4 [facility] Blood leukocytes automated c ount (number/volume)Ordered By: Summer Galavn on 05-16-2022 WBC (Bld) [#/Vol] 10.7 10*3/uL 4.5-11.0 [facility] C3 and C4 COMPLEMENTon 05-16 Complement C3, Serum 162 mg/dL Normal 82-167 [facility] Comment on above: Performed By: #### C SUITE #### [facility] [address] [place], [place] [address] Dr. Arben Ro Complement C4, Serum 18 mg/dL Normal 12-38 [facility] Comment on above: Performed By: #### C SUITE #### [facility] [address] [place], [place] [address] Dr. Arben Haro typing in urine sedime nt by light microscopyOrdered By: Summer Galvan on 05-16-2022 Casts LM Nom (Urine sed) None seen [LPF] None Seen [facility] Color Auto (U)Ordered By: Yessica Galvan on 05-16-2022 Color (U) Yellow Yellow [facility] Creatinine and Glomerular fi ltration rate.predicted panel (S/P/Bld)Ordered By: Summer Galvan on 05-16-2022 Creatinine [Mass/Vol] 1.16 mg/dL 0.44-1.03 [facility] Eosinophils Auto (Bld) [#/Vo l]Ordered By: Summer Galvan on 05-16-2022 Eosinophils (Bld) [#/Vol] 0.0 10*3/uL 0.0-0.45 [facility] Eosinophils/100 WBC Auto (Bl d)Ordered By: Summer Galvan on 05-16-2022 Eosinophils/100 WBC (Bld) 0.2 % . [facility] Erythrocyte distribution wid th Auto (RBC) [Ratio]Ordered By: Summer Galvan on 05-16-2022 Erythrocyte distribution width (RBC) [Ratio] 13.8 % 11.9-15.3 [facility] Estimated glomerular filtrat ion rate (GFR) non- AmericanOrdered By: Summer Galvan on 05-16-2022 GFR/1.73 sq M.predicted among non-blacks MDRD (S/P/Bld) [Vol rate/Area] 47 mL/Min [facility] Globulin Calc (S) [Mass/Vol] Ordered By: Summer Galvan on 05-16-2022 Globulin (S) [Mass/Vol] 4.9 g/dL [facility] HAPTOGLOBINon 05-16-2022 Haptoglobin 122 mg/dL Normal 37-355 [facility] Comment on above: Performed By: #### C SUSU GANNON #### [facility] [address] [address] [address] Arben Ro HEPATITIS B SURFACE ANTIBODY , QUANTon 05-16-2022 Hepatitis B Surf AB Quant 3.1 mIU/mL Critically low Immunity>9.9 [facility] Comment on above: Result Comment: Stat us of Immunity Anti-HBs Level Inconsistent with Immunity 0.0 - 9.9 Consistent with Immunity >9.9 Performed By: #### H EPBSRF #### [facility] [address] [address] [address] Arben Ro Hematocrit Auto (Bld) [Volum e fraction]Ordered By: Summer Galvan on 05-16-2022 Hematocrit (Bld) [Volume fraction] 35.8 % 34.0-46.4 [facility] Ketones Auto test strip (U) [Mass/Vol]Ordered By: Summer Galvan on 05-16-2022 Ketones (U) [Mass/Vol] Negative Negative [facility] Laboratory - Chemistry and C hemistry - challengeOrdered By: Summer Galvan on 05-16-2022 Lipase [Catalytic activity/Vol] 56.0 U/L 22-51 [facility] Laboratory - Hematology and Cell countsOrdered By: Summer Galvan on 05-16-2022 Nucleated RBC/100 WBC (Bld) [Ratio] 0.0 % 0-0.5 [facility] Lymphocytes Auto (Bld) [#/Vo l]Ordered By: Summer Galvan on 05-16-2022 Lymphocytes (Bld) [#/Vol] 0.6 10*3/uL 1.00-4.8 [facility] Lymphocytes/100 WBC Auto (Bl d)Ordered By: Summer Galvan on 05-16-2022 Lymphocytes/100 WBC (Bld) 5.7 % . [facility] MCH Auto (RBC) [Entitic mass ]Ordered By: Summer Galvan on 05-16-2022 MCH (RBC) [Entitic mass] 30.5 pg 24.7-34.3 [facility] MCHC Auto (RBC) [Mass/Vol]Or dered By: Summer Galvan on 05-16-2022 MCHC (RBC) [Mass/Vol] 32.8 g/dL 32.0-35.0 [facility] MCV Auto (RBC) [Entitic vol] Ordered By: Summer Galvan on 05-16-2022 MCV (RBC) [Entitic vol] 92.9 fL 80-100 [facility] MMR IMMUNITYon 05-16-2022 Mumps Abs, IgG 12.8 AU/mL Normal Immune >10.9 [facility] Comment on above: Result Comment: Nega tive <9.0 Equivocal 9.0 - 10.9 Positive >10.9 A positive result generally indicates past exposure to Mumps virus or previous vaccination. Performed By: #### M MRIMMU #### [facility] [address] [address] [address] Arben Ro Rubella Antibodies, IgG 16.00 index Normal Immune >0.99 [facility] Comment on above: Result Comment: Non- immune <0.90 Equivocal 0.90 - 0.99 Immune >0.99 Performed By: #### M MRIMMU #### [facility] [address] [address] [address] Arben Ro Rubeola Ab, IgG 234.0 AU/mL Normal Immune >16.4 [facility] Comment on above: Result Comment: Nega tive <13.5 Equivocal 13.5 - 16.4 Positive >16.4 Presence of antibodies to Rubeola is presumptive evidence of immunity except when acute infection is suspected. Performed By: #### M MRIMMU #### [facility] [address] [address] [address] Arben Ro Monocytes Auto (Bld) [#/Vol] Ordered By: Summer Galvan on 05-16-2022 Monocytes (Bld) [#/Vol] 0.3 10*3/uL 0.0-0.8 [facility] Monocytes/100 WBC Auto (Bld) Ordered By: Summer Galvan on 05-16-2022 Monocytes/100 WBC (Bld) 2.9 % . [facility] Neutrophils Auto (Bld) [#/Vo l]Ordered By: Summer Galvan on 05-16-2022 Neutrophils (Bld) [#/Vol] 9.7 10*3/uL 1.8-7.7 [facility] Neutrophils/100 WBC Auto (Bl d)Ordered By: Summer Galvan on 05-16-2022 Neutrophils/100 WBC (Bld) 91.1 % . [facility] Nitrite Test strip Ql (U)Ord ered By: Summer Galvan on 05-16-2022 Nitrite Ql (U) Negative Negative [facility] No Panel InformationOrdered By: Summer Galvan on 05-16-2022 Estimated GFR () 57 mL/Min [facility] Comment on above: GFR estimated refere nce range: According to KDOQI guidelines, <60 ml/min/1.73m2 is sufficient to diagnose a patient with chronic kidney disease. Pharmacy Creatinine Clearance (Chem 39.46 [facility] Platelet mean volume Auto (B ld) [Entitic vol]Ordered By: Summer Galvan on 05-16-2022 Platelet mean volume (Bld) [Entitic vol] 6.8 fL 6.3-10.7 [facility] Platelets Auto (Bld) [#/Vol] Ordered By: Summer Galvan on 05-16-2022 Platelets (Bld) [#/Vol] 386 10*3/uL 150-450 [facility] Protein Auto test strip (U) [Mass/Vol]Ordered By: Summer Galvan on 05-16-2022 Protein (U) [Mass/Vol] 30 mg/dL Negative [facility] Protein [Mass/volume] in Ser um or PlasmaOrdered By: Summer Galvan on 05-16-2022 Protein [Mass/Vol] 8.1 g/dL 6.1-7.9 [facility] RBC Auto (Bld) [#/Vol]Ordere d By: Summer Galvan on 05-16-2022 RBC (Bld) [#/Vol] 3.86 10*6/uL 3.60-5.00 [facility] Serum or plasma alanine wyman otransferase measurement without P-5'-P (enzymatic activiOrdered By: Summer Galvan on 05-16-2022 ALT No additional P-5'-P [Catalytic activity/Vol] 20 U/L 10-60 [facility] Serum or plasma albumin/glob ulin mass ratioOrdered By: Summer Galvan on 05-16-2022 Albumin/Globulin [Mass ratio] 0.7 {ratio} [facility] Serum or plasma alkaline hien sphatase measurement (enzymatic activity/volume)Ordered By: Summer Galvan on 05-16-2022 ALP [Catalytic activity/Vol] 84 U/L 32-92 [facility] Serum or plasma aspartate am inotransferase measurement (enzymatic activity/volume)Ordered By: Summer Galvan on 05-16-2022 AST [Catalytic activity/Vol] 20 U/L 10-42 [facility] Serum or plasma calcium mary urement (mass/volume)Ordered By: Summer Galvan on 05-16-2022 Calcium [Mass/Vol] 9.5 mg/dL 8.2-10.2 [facility] Serum or plasma chloride sirisha surement (moles/volume)Ordered By: Summer Galvan on 05-16-2022 Chloride [Moles/Vol] 101 mmol/L 95-114 [facility] Serum or plasma glucose mary urement (mass/volume)Ordered By: Summer Galvan on 05-16-2022 Glucose [Mass/Vol] 120 mg/dL 70-100 [facility] Comment on above: ADA recommended refe rence range Random Glucose Reference Range is dependent on time and content of last meal. Glucose of more than 200 mg/dL in a nonstressed, ambulatory subject supports the diagnosis of Diabetes Mellitus. Serum or plasma potassium me asurement (moles/volume)Ordered By: Summer Galvan on 05-16-2022 Potassium [Moles/Vol] 4.0 mmol/L 3.5-5.1 [facility] Serum or plasma sodium measu rement (moles/volume)Ordered By: Summer Galvan on 05-16-2022 Sodium [Moles/Vol] 135 mmol/L 136-146 [facility] Serum or plasma total biliru bin measurement (mass/volume)Ordered By: Summer Galvan on 05-16-2022 Bilirubin [Mass/Vol] 0.5 mg/dL 0.3-1.2 [facility] Serum or plasma total carbon dioxide measurement (moles/volume)Ordered By: Summer Galvan on 05-16-2022 CO2 [Moles/Vol] 26.9 mmol/L 22.0-30.0 [facility] Serum or plasma urea nitroge n measurement (mass/volume)Ordered By: Summer Galvan on 05-16-2022 Urea nitrogen [Mass/Vol] 16 mg/dL 9-23 [facility] Specific gravity Auto test s trip (U) [Rel density]Ordered By: Summer Galvan on 05-16-2022 Specific gravity (U) [Rel density] 1.026 1.001-1.030 [facility] Squamous epithelial cells de tection in urine sediment by light microscopyOrdered By: Summer Galvan on 05-16-2022 Epithelial cells.squamous LM Ql (Urine sed) 10-19 [HPF] 0-2 [facility] Urine bacteria detection by automated methodOrdered By: Summer Galvan on 05-16-2022 Bacteria Auto Ql (U) 1+ None Seen [facility] Urine clarity by refractomet ry automatedOrdered By: Summer Galvan on 05-16-2022 Clarity Refractometry automated (U) Cloudy Clear [facility] Urine glucose measurement by automated test strip (mass/volume)Ordered By: Summer Galvan on 05-16-2022 Glucose Auto test strip (U) [Mass/Vol] Normal mg/dL Normal [facility] Urine hemoglobin detection b y automated test stripOrdered By: Summer Galvan on 05-16-2022 Hemoglobin Auto test strip Ql (U) Negative Negative [facility] Urine lactic acid measuremen tOrdered By: Summer Galvan on 05-16-2022 Lactate (U) [Moles/Vol] 0.9 mmol/L 0.5-2.2 [facility] Urine leukocyte esterase det ection by automated test stripOrdered By: Summer Galvan on 05-16-2022 Leukocyte esterase Auto test strip Ql (U) 1+ Negative [facility] Urobilinogen Auto test strip (U) [Mass/Vol]Ordered By: Summer Galvan on 05-16-2022 Urobilinogen (U) [Mass/Vol] Normal mg/dL Normal [facility] VARICELLA IGG ABon 2 Varicella Zoster IgG 584 index Normal Immune >165 [facility] Comment on above: Result Comment: Nega tive <135 Equivocal 135 - 165 Positive >165 A positive result generally indicates exposure to the pathogen or administration of specific immunoglobulins, but it is not indication of active infection or stage of disease. Performed By: #### SUSU STEWART #### [facility] [address] [place] [address] Dr. Arben Ro pH Auto test strip (U)Ordere d By: Summer Galvan on 05-16-2022 pH (U) 5.5 [pH] 5.0-9.0 [facility] CBC W MANUAL DIFFon 05-15-20 22 ATYPICAL LYMPH # Normal [facility] Comment on above: Performed By: #### SUSU STEWART #### [facility] [address] [place] [address] Dr. Arben Ro ATYPICAL LYMPH % Normal [facility] Comment on above: Performed By: #### SUSU STEWART #### [facility] [address] [place] [address] Dr. Arben Ro BAND # Normal 0.0-0.3 [facility] Comment on above: Performed By: #### SUSU STEWART #### [facility] [address] [place] [address] Dr. Arben Ro BAND % Normal 0-5 [facility] Comment on above: Performed By: #### SUSU STEWART #### [facility] [address] [place] [address] Dr. Arben Ro BASOM # 0.00 103/ul Normal 0.00-0.10 [facility] Comment on above: Performed By: #### Yvonne GANNON, PERSMR #### [facility] [address] [address] [address] Arben Ro BASOM % 0.0 % Critically low 0.2-2.0 [facility] Comment on above: Performed By: #### Yvonne GANNON, PERSMR #### [facility] [address] [address] [address] Arben Ro BLAST # Normal [facility] Comment on above: Performed By: #### Yvonne GANNON, PERSMR #### [facility] [address] [address] [address] Arben Ro BLAST % Normal [facility] Comment on above: Performed By: #### Yvonne GANNON, PERSMR #### [facility] [address] [place] [address] Dr. Arben Ro CORRECTED WBC Normal 4.0-11.0 [facility] Comment on above: Performed By: #### Yvonne GANNON, PERSMR #### [facility] [address] [place] [address] Dr. Arben Ro EOS # 0.00 103/ul Normal 0.00-0.70 [facility] Comment on above: Performed By: #### Yvonne GANNON, PERSMR #### [facility] [address] [place] [address] Dr. Arben Ro EOS% 0.0 % Critically low 0.9-7.0 [facility] Comment on above: Performed By: #### Yvonne GANNON, PERSMR #### [facility] [address] [place] [address] Dr. Arben Ro HCT 38.3 % Normal 36.0-48.0 [facility] Comment on above: Performed By: #### Yvonne GANNON, PERSMR #### [facility] [address] [place] [address] Dr. Arben Ro HGB 12.2 g/dl Normal 12.0-16.0 [facility] Comment on above: Performed By: #### Yvonne GANNON, PERSMR #### [facility] [address] [address] [address] Arben Ro LYMPHM # 0.44 103/ul Critically low 1.20-3.80 [facility] Comment on above: Performed By: #### Yvonne GANNON, PERSMR #### [facility] [address] [address] [address] Arben Ro LYMPHM% 3.0 % Critically low 20.5-60.0 [facility] Comment on above: Performed By: #### Yvonne GANNON, PERSMR #### [facility] [address] [address] [address] Arben Ro MCH 30.7 pg Normal 26.7-34.0 [facility] Comment on above: Performed By: #### Yvonne GANNON PERSMR #### [facility] [address] [place] [address] Dr. Arben Ro MCHC 31.9 g/dl Normal 29.9-35.2 [facility] Comment on above: Performed By: #### Yvonne GANNON PERSMR #### [facility] [address] [place] [address] Dr. Arben Ro MCV 96.2 fL Normal 81.0-99.0 [facility] Comment on above: Performed By: #### Yvonne GANNON PERSMR #### [facility] [address] [place] [address] Dr. Arben Ro METAMYELOCYTE # Normal [facility] Comment on above: Performed By: #### Yvonne GANNON, PERSMR #### [facility] [address] [place] [address] Dr. Arben Ro METAMYELOCYTE % Normal [facility] Comment on above: Performed By: #### Yvonne GANNON PERSMR #### [facility] [address] [place] [address] Dr. Arben Ro MONOM# 0.29 103/ul Critically low 0.30-0.80 [facility] Comment on above: Performed By: #### Yvonne GANNON PERSMR #### [facility] [address] [place] [address] Dr. Arben Ro MONOM% 2.0 % Normal 1.7-12.0 [facility] Comment on above: Performed By: #### Yvonne GANNON PERSMR #### [facility] [address] [address] [address] Arben Ro MPV 8.6 fL Critically low 9.5-13.5 [facility] Comment on above: Performed By: #### Yvonne GANNON, PERSMR #### [facility] [address] [address] [address] Arben Ro MYELOCYTE # Normal [facility] Comment on above: Performed By: #### Yvonne GANNON PERSMR #### [facility] [address] [place] [address] Dr. Arben Ro MYELOCYTE % Normal [facility] Comment on above: Performed By: #### Yvonne GANNON PERSMR #### [facility] [address] [place] [address] Dr. Arben Ro NRBC Normal [facility] Comment on above: Performed By: #### Yvonne GANNON PERSMR #### [facility] [address] [place] [address] Dr. Arben Ro PLT 352 103/ul Normal 150-450 [facility] Comment on above: Performed By: #### Yvonne GANNON, PERSMR #### [facility] [address] [place] [address] Dr. Arben Ro RBC 3.98 106/ul Critically low 4.20-5.40 [facility] Comment on above: Performed By: #### Yvonne GANNON, PERSMR #### [facility] [address] [address] [address] Arben Ro RDW 13.3 % Normal 11.0-15.0 [facility] Comment on above: Performed By: #### Yvonne GANNON, PERSMR #### [facility] [address] [address] [address] Arben Ro SEG # 13.87 103/ul Critically high 1.40-6.50 [facility] Comment on above: Performed By: #### Yvonne GANNON, PERSMR #### [facility] [address] [address] [address] Arben Ro SEG % 95.0 % Critically high 43.0-75.0 [facility] Comment on above: Performed By: #### C TERESSA, PERSMR #### [facility] [address] [address] [address] Arben Ro WBC 14.6 103/ul Critically high 4.0-11.0 [facility] Comment on above: Performed By: #### C TERESSA, PERSMR #### [facility] [address] [address] [address] Arben Ro CREATININEon 05-15-2022 Creatinine [Mass/Vol] 1.04 mg/dL Critically high 0.55-1.02 [facility] Comment on above: Performed By: #### L DH, CRP, CREA #### [facility] [address] [address] [address] Arben Ro EGFR-AF ERITREAN >60 Normal >=60 [facility] Comment on above: Performed By: #### L DH, CRP, CREA #### [facility] [address] [address] [address] Arben Ro EGFR-NON AF ERITREAN 53 mL/min/1.73m2 Critically low >=60 [facility] Comment on above: Performed By: #### L DH, CRP, CREA #### [facility] [address] [address] [address] Arben Ro CRPon 05-15-2022 CRP 15.0 mg/dL Critically high <=1.0 [facility] Comment on above: Performed By: #### L DH, CRP, CREA #### [facility] [address] [address] [address] Arben Ro LDHon 05-15-2022 LDH 204 U/L Normal 81-234 [facility] Comment on above: Performed By: #### L DH, CRP, CREA #### [facility] [address] [address] [address] Arben Ro PERIPHERAL SMEARon 2 Pathologist Cyto stain Nom (Cvx/Vag) [ID] DR. SHAILA ERICKSON Normal [facility] Comment on above: Result Comment: neut rocytosis, neutrophilia, rule out infectious process Performed By: #### C TERESSA, PERSMR #### [facility] [address] [place] [address] Dr. rAben Ro SED RATE WESTERGRENon 2021 SED RATE 101 mm/hr Critically high <=30 [facility] Comment on above: Performed By: #### C TERESSA, PERSMR #### [facility] [address] [place] [address] Dr. Arben Ro UA RANDOM W/MICROSCOPICon BACTERIA MODERATE Abnormal NONE SEEN [facility] Comment on above: Performed By: #### U AMIC #### [facility] [address] [place] [address] Dr. Arben Ro Bilirubin Ql (U) SMALL Abnormal NEGATIVE [facility] Comment on above: Performed By: #### U AMIC #### [facility] [address] [place] [address] Dr. Arben Ro CA OX CRYSTALS MANY Normal [facility] Comment on above: Performed By: #### U AMIC #### [facility] [address] [place] [address] Dr. Arben Ro CAST NONE SEEN Normal NONE [facility] Comment on above: Performed By: #### U AMIC #### [facility] [address] [place] [address] Dr. Arben Ro Clarity (U) CLOUDY Abnormal CLEAR [facility] Comment on above: Performed By: #### U AMIC #### [facility] [address] [place] [address] Dr. Arben Ro Color (U) DK. YELLOW Normal YELLOW [facility] Comment on above: Performed By: #### U AMIC #### [facility] [address] [place] [address] Dr. Arben Ro Crystals LM Nom (Urine sed) SEEN Abnormal NONE [facility] Comment on above: Performed By: #### U AMIC #### [facility] [address] [address] [address] Arben Ro Epithelial cells LM Ql (Urine sed) MANY Abnormal NONE SEEN /RARE [facility] Comment on above: Performed By: #### U AMIC #### [facility] [address] [address] [address] Arben Ro Glucose Ql (U) Negative Normal NEGATIVE [facility] Comment on above: Performed By: #### U AMIC #### [facility] [address] [address] [address] Arben Ro Hemoglobin Ql (U) Negative Normal NEGATIVE [facility] Comment on above: Performed By: #### U AMIC #### [facility] [address] [address] [address] Arben Ro Ketones Ql (U) Negative Normal NEGATIVE [facility] Comment on above: Performed By: #### U AMIC #### [facility] [address] [address] [address] Arben Ro LEUKOCYTES TRACE Abnormal NEGATIVE [facility] Comment on above: Performed By: #### U AMIC #### [facility] [address] [address] [address] Arben Ro MUCOUS LARGE Abnormal NONE SEEN [facility] Comment on above: Performed By: #### U AMIC #### [facility] [address] [address] [address] Arben Ro Nitrite Ql (U) Negative Normal NEGATIVE [facility] Comment on above: Performed By: #### U AMIC #### [facility] [address] [address] [address] Arben Ro pH (U) 5.5 [pH] Normal 5-9 [facility] Comment on above: Performed By: #### U AMIC #### [facility] [address] [place] [address] Dr. Arben Ro RBC 0-2 Normal 0-2 [facility] Comment on above: Performed By: #### U AMIC #### [facility] [address] [address] [address] Arben Ro SPEC GRAVITY >=1.030 Abnormal 1.005-<=1.02 5 [facility] Comment on above: Performed By: #### U AMIC #### [facility] [address] [address] [address] Arben oR UA PROTEIN 100 mg/dl Abnormal NEGATIVE/ TRACE [facility] Comment on above: Performed By: #### U AMIC #### [facility] [address] [address] [address] Arben Ro Urobilinogen Qn (U) 0.2 {Safia'U}/dL Normal 0.2 - 1. 0 [facility] Comment on above: Performed By: #### U AMIC #### [facility] [address] [address] [address] Arben Ro WBC 5-10 Abnormal NONE SEEN [facility] Comment on above: Performed By: #### U AMIC #### [facility] [address] [place] [address] Dr. Arben Ro Coding Summary.on 05-09-2022 Coding Summary. CD:[id number] Gh 0bWw+PGhlYWQ+TT8KKCCdE 36aiVNtwO1CV4mBLU8FLXO EYNNDQD4RCB2raCU4NZdjB 2VybiAv KgpfxSUxNE82AKy8XTV3pC msHVdidK7phEInO8u4JvBs IY11zS61JLmpTRNyLfL8Rn ZpbjsgbWFy D4myTnXpjUJoZoc+PHRhYm xlIHdpZHRoPScxMDAlJyBz hOatXQ6aGj6aRNSkZMDnjQ xhcHNlOiBj j9jkGMVbWDsaLU2ewPjxD1 CtoZS4VQRde2q1Oa70qOZ+ HFYmYCS1tXscXJvzq235My Iuv5vlRJO9 pHQbIJukCLA8Y38sh7X6LE LzWZLgWJO7nJG2kA4jdGaa lausV4FuuTSeBjQ5YIN1oV RkkE5pxBbc eakryN2vAnb+K00HCT8XZX ZXRC1KDwd0K2MbBkiuaKA+ BQ55VQIrWH97sAWaaZUkh0 afiMj0UfNp HZRjKDK0sVpqGPtxx6EsAV JwQ24axXQfh8H8WZGekYii cDLpVkLwsML4eU0cYNyuxc yij0snidfn Egyqx7ojyq36dJ73E38wCT liSGGlHZX5BRAqFLKgpDnp zc2myA8iAv5+EOpqz5cow3 rlnQi0QxRz VHAsdoNasUleDYP7u6LqUl 22B2DqpYpmp2TqSgp7kk84 vCEfi2C7lSO2HOagEOZvsN 3oCOumWuL7 OWOqZqTndG56cVBmIDudDx 7tdTdqiUkjMA8eYTIzvgtw VGPbeN5nWXFxvPZihZugWD 4wNTBpbjtm w530AcThPDC8CDAzgBFkB3 DuzI0cPxAqRSVsZRKeB4Da rPGfYPwhV346TZepIbP9WK ZmehAnN2Wn NZCowZfsEaU8x9Y2Vl7Ca3 NptilgLFS3VOspAKR5EdI5 GyHpCoS4V3FpZnl0XRKsqU mtGL0mH4Zz RYGsmbzaqzuryCR4PHKnFT GpnP11uALfINrgDl8qs0A4 j403UENgHMFlqR23Jf0xiJ ogMTBwdCBU kU4yiednc1skyrysTnChSU NaYUk9COg6KSVopCnbViWr DGH3ZxB6DEX5nNQkkG1ftB nemciqaR0d Oyc+L17mlU8dZUH8APL1ps puWIHffsFlXY04MM73G6Pf PjwvdGFibGU+PGRpdiBzdH vaFC6wKyXr u7svp8UqTEvoR2XcMCQvKQ luQaz9ZNDcMHR0pOD8aT5s GAChHRuix4I7iIQ8S6Axrt Jzws2jg4ff KBOkYJgsL55pxYOee2F2JU RrzXO4GIVqaKmlBzLrnJ86 Oyc+AAAkdMzlh1MxUtbbp3 krt6gqbOy5 JbGtUKCjozCbtLepFIU3e5 CyOr89A23xDLezWMUqKOAf CPYkGHIuzPdyeb8dxU0cXe 8+PGNvbCB3 gBW8qQ8iBLFqBfZ8GLnyS9 17JpTqzZKyDobsa3bev3wk rIw0QbYpWZTzdeVoiDjjRA G9e7RiJd68 T20mKHlzCJFrPCJjGTZhBP OugXgobm4vhT6sUq0+PC9j c9mdcz75gY69eUZ+PHRkIH N3oMinUFnf HMFnpV1vXLhiCrN8VWFcCk VqbS57tDBlSNzuSj8aoDbl cKojLD7eYCIypaopw691Ar Lfs8keZDNn xJYxTSlzXUG5G35lq2C9HW AdNEGcGIK9qAC9nW6vwPko bjogbGVmdDsgdmVydGljYW cyCWotJ177 IHRvcDsnPlBhdGllbnQgTm NrNSu2M9OeRce0VZRhzEib NY7tlFBiNKivAa8alIjeiE fqOO5gKVDf gmxxl325IaWth0fsXGQvvB DlAIxpQOT1T64pd4L5NAOh SNYaDVV2oGQ5tY7jiVedtl ogbGVmdDsg icBgpBkaDXuwZEbbH485RH RvcDsnPkJpcnRoIERhdGU6 EV82LA61qHOrp1G2oWQ6P2 BhZGRpbmct rqyjbZX9TJPzBXLfjP38Hq 1yuZvvSa9tZBSmTGM4LJXf nAUsZ2LgcL3pOlJsMGLgWA QvE4EwmGGz YHvwV253VWqbCcO1JWRvaq SvO2WaKXBgsCfeNwS2t5I5 Mm3KU5H0CI21ML49dMZku6 R5jPA3Z7Ya MQClftsxyuxthCN7BQLuDF WdaM15Mw0gxEbmOl6dDCEp EQS2FWPzsPTvA0OikD3pCy AjMDAwMDAw V4PwrGCjRBezA803CXqvHe H0RHAfcoVjY3WfDAPtrQmu DiY2x9U6Jx3BYAu0YI24KS 60pCThf0G1 wMC1F7GvPVWdlytcvtofjK J8PIFuEPDwrB35Hi8ajQai Wt9aPORwMUF0YPPfaDUhJ4 BdpO7yPhGc ZQKtHLJpE2UfqLBoFYeeT8 63OQkmDhC1DNJarbBtL6Bp EUIeaVywAvE4w9V8Ic0XBB MeLU98LUY4 uDT1YR87OL95W2CcSttyeZ FibGU+PHRhYmxlIHdpZHRo QIbcYYOlYmFetPwnXP1uIv 9yZGVyLWNv jJvibFPuQlUan4ogSMExUW vlZZ7vrFmrF9MquPM7TXJj x2k1Bv74O76tY2TvfFP+PG CsyRG6kDM9 jE9nKxYdQnB6HNrjM038Ss GcaHGlSjdxv5yjg5aiyIy4 CfY3ZKFerlEajBxeCBJ4e6 YjXj65O22v IHdpZHRoPSIxNSUiIHZhbG flcf9wzY0mHj8+PGNvbCB3 oVF5vE3lPsYeUhU4UMwvV5 49InRvcCIv Wtakl1zrb6qzlSe1ZzLtSF UtsaGfiExiLDM7v7XoEn69 F1FiiEkzx1AbMik2en35qG Frt7G5mMB5 L9ZlNLYdfvcbxMQjgTyyTE 2dIIYwntqtNNLizC0oVYGc D8v6RnSlNbO2SLuaL1Kgot H6PEGkuQWs JVcdNMJ9J34kl9N8WZDlHQ SzWXC5sRK0yD7xlSwkhxkq bGVmdDsgdmVydGljYWwtYW znZ164ITNd lJcgIRNouB6gAPJxvNWbjI bdXR6fLEPbghiqObHISIZE K0QaTBENCXXQWVhzeBQ+PH BdVEN2vXjn WZuvURYvoW5xGFKuB9y9Vj XdVnM0MSdxF0SlNSLdhjus Sv86lI7fTwVdMqL5RNuzM1 DzecQ7FTCm sZQgZIlpKSE7I42mx4M8FI TdPFZoLQP0oOC3vE2qnQim bjogbGVmdDsgdmVydGljYW emKEnmH703 BYVcqXwmMpH8RfQoRyZ2BN B6G9GiKfn8XISgbJmbVI8o nRIpTEdoVs9jiSpgrZcmYS 4wNTBpbjtw RDAwbU1xQZNykYSztHliWJ 0sGNEohjyvb379SdMkLBZ7 SNFsqSCkO6OiyD9fGyZdJQ XsBELdJ0Zp iLOzSZrcD822WTayNtH6XH YtayDgL5WwVHKdmVvkGwR8 s8E6Yp75KyILAEFotfnlaC Q+PHRkIHN0 nHttZTksWEMuhG5bWXFtB6 k0FsZwWxN6CCkrW2VbWXXt xkjsSv97rL4tHeGfAqW5MD ljC4GhvxO5 BNDzqELaZJxjKGB9U84qb2 T7FAJqXPHuPOE8vHM2yX2b bGlnbjogbGVmdDsgdmVydG ljYWwtYWxp P250BTRxbOiqDbBzoOPdHK wvdGQ+MJLaFLZ7vPdlLCod UKMiyC1oHWNhX4y5OiVxNg M7RRjpR5Zp YQDfvpxfGp07xZ8kJhRzVr T2PIzaT4HorzK9ODVbzMVf WMrbPZY7Y98ki2A8KEDzOU IsBBS1cPB1 lQ9bbCcitemxqKIbgKdmlf RwfYspRTobWPkfL552FKSd qDmlRbYdGDXlHK7dcJottW Q+RI46vf88 R9IhOrmaMou4LNQxQPY1wT B8dA3uFXEqMEyvc9Y9jZR1 W7UydsKjdm2nk0amQEBhAF qiU84uzKZu y0P0CPEoiPP3MOTclQujMj MfkM30Gpt+UWCeqCdbs2Ab Msgss3adp7gxsWq0HfUaUO IgdmFsaWdu EYC7p9IbMs63N26dCZxsNN SuSEEfYKVnINDrvGhfdr8i zV3sHr6+BOXyhJH2tCK6vC 0aVwYdZgK5 ZOzcL698XrPhtYAwHqkeb8 obh2jmpBq5AhWoBFTtyzFt mRlfEPV4e1QzMx80X7NrvE ntc2FoIud1 uv01rQEaf1Y2bCY0L0VnKS LqfnnlkDCpvObzXE6gYLCl fdwjDHZyoY4cGCQdS3q9Dl XoFbN9EXkc T9PtvlU4JYTzcKNwSERpwM QScO1smystb4ojntznCbNz STJmJCx5OPy8SQGmeTxlUh CsTIE6QvX0 YYV0aOHvyY7wuKxwshrbzY 9wOyc+MFq1i4fnrARdJF3j bEO3QZ75CB15mVYus1X4tQ R0F6KdSGCf vebljnbrsRT1YJEaVQMmuZ 11Jl9viLmfUo2rAVZcEGG2 IFAfvAGoV1EemW0cMyUfEU UdYCVgT7Ww nLJcBOkiA452EFmfOpA4TU MpfgYuN7WmVJQcsNysGzC3 n5C2Eb0IND29LR12BF06fJ Ngi2A4jJQ2 C9RdSXMjpjfufrpttAS0GR QuLQVugC90Jz3uoOlnEh6e XKCaFRI5LHRnuEOlU2NqiC 9yOiAjMDAw CWMrC8IhwZRwUVhyF143VM wuSdD3WEFkczKdB0OnHNHd nZoqJpD3x8P1Zm2NSf85BE 20DV51mNIi s2F0pMQ8E6DeTLFvpbeixd fpgQA4XAKjRKVqmE27Yo4n hRhgAi9aKUMvJFC7BMWanF NbR0CcfA4h QgRfYXFeQLQnP8UvhSKvTD txM199YVqcQqG4DTPjazKb A2CsOBZvjFakWkZ0f2W6Bz 5LBFanzeu3 S9LdWglwtCI+EF26FLVoRM 38oJPjjIGxv8basOz9UoSd PWYsLND3oRxsUGgdo4IgQN HdH56djIBh c2U6 (more content not included)... Normal [facility] ED Note-Physicianon 05-05-20 ED Note-Physician Basic Information Time Seen: Yamini Adam M.D. 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 Pt reports she sneezed yest and felt a pop and has had severe pain since. Surgery done through [facility]. History of Present Illness The patient is 66-year-old female who presented to the emergency room with her daughter for abdominal pain. The patient is 10 days postop at [facility]. She has tumor removed with the partial gastrectomy. The patient states she went home on Friday and she was doing okay. She took only one shot of Lovenox on and then stopped. The patient states yesterday she sneezed and developed a sharp pain below the rib cage on her abdomen. The patient states the pain ever since has gotten worse. She denies any fever, denies any chills. Denies any nausea, denies any vomiting. She denies any diarrhea. The patient denies any chest pain, denies any shortness of breath. She reports decrease in appetite. Patient denies any other associated symptoms. Review of Systems Additional ROS info: Except as noted in the above Review of Systems and in the History of Present Illness all other systems have been reviewed and are negative or noncontributory. Physical Exam Vitals & Measurements T: 37.0 ?C(Oral) HR: 85(Monitored) RR: 16 BP: 121/70 SpO2: 97% HT: 160.02 cm HT: 160.0 cm WT: 56.5 kg WT: 56.5 kg BMI: 22.06 General: alert, mild distress Skin: warm, dry Head: no trauma, normocephalic Neck: Trachea midline Eye: normal conjunctiva, sclera clear Cardiovascular: regular rate and rhythm Respiratory: Lungs CTA, respirations non labored, breath sounds equal Gastrointestinal: Ecchymosis on the anterior abdominal wall. The incision is healing well, soft, non distended, moderate tenderness in upper quadrant and epigastric, mild voluntary guarding, Extremities: no deformity, no trauma Neurological: Alert and oriented, speech normal, no focal neuro deficits, normal coordination Psychiatric: cooperative, affect appropriate for age, Medical Decision Making The patient presented with abdominal pain after sneezing. More likely she strained the muscles of the abdominal wall. Blood work reviewed. White count is slightly elevated. More likely reactive. The CT of the abdomen and pelvis shows no abscess no acute intra-abdominal process. There is a fluid intra-abdominal however is not consistent with blood per radiologist discussion. The patient's pain improved after morphine. Will discharge patient home follow-up with her primary care and her surgeon. She is instructed to return to the emergency room if her pain recurs or any new symptoms. Assessment/Plan 1. Abdominal pain (R10.9: Unspecified abdominal pain) Orders: morphine, 4 mg = 2 mL, Injection, IV Push, Once, Stop date 05/04/22 14:18:00 EDT, STAT, Start date 05/04/22 14:18:00 EDT, 05/04/22 14:18:00 EDT Sodium Chloride 0.9% intravenous solution, 1,000 mL, Soln-IV, IV, Once, Stop date 05/04/22 14:18:00 EDT, STAT, Start date 05/04/22 14:18:00 EDT, mL/hr, Infuse over 61, minute(s) Automated Diff Basic Metabolic Panel CBC w/ Auto Diff CT Abdomen/Pelvis w/ Contrast eGFR Extra Blue Tube Hepatic Function Panel Lipase Level PT & PTT UA With Cult Reflex Medications Administered Given morphine 2 mg/mL Inj, 4 mg, IV Push [id number] [F], 1000 mL, IV Disposition Plan Patient Discharge Condition Stable, improved Discharge Disposition Discharged home Discharge Prescription List Prescriptions No active prescription medications Follow-up With When Contact Information VIVI LIAO In 3 days 05/07/2022 EDT [address] [place] [address]- Business (1) Additional Instructions: Return to the emergency room if your pain gets worse, vomiting, fever or any new symptoms. 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 Medications Inpatient No active inpatient medications Home aspirin 81 mg Chew Tab, 162 mg= 2 tab(s), Oral, Daily Flintstones Multivitamins, 1 tab(s), Chewed, Daily Lasix 20 mg Tab, 20 mg= 1 tab(s), Oral, Daily Allergies No Known Medication Allergies Social History Alcohol - Denies Alcohol Use, 10/06/2021 Substance Abuse - Denies Substance Abuse, 10/06/2021 Tobacco - Denies Tobacco Use, 10/06/2021 Family History Liver cancer: Father. Lab Results WBC: 12.3 E9/L High (05/04/22 14:10:00) RBC: 4.1 E12/L Low (05/04/22 14:10:00) HGB: 12.3 gm/dL (05/04/22 14:10:00) Hct: 37.5 % (05/04/22 14:10:00) MCV: 92 fL (05/04/22 14:10:00) MCH: 30.1 pg (05/04/22 14:10:00) MCHC: 32.8 gm/dL (05/04/22 14:10:00) RDW: 13.5 % (05/04/22 14:10:00) P (more content not included)... Normal [facility] Comment on above: Result Comment: Elec tronically Signed By: Jair Keane, Yamini Medina\.br\Date and Time Signed: 05/05/22 07:12 EDT Auto Diffon 05-04-2022 Basophils/100 WBC (Bld) 0.4 % Normal 0.0-2.0 [facility] Comment on above: Order Comment: Order Added by Discern Expert. Performed By: #### 2 222792, 2380201, 1125328, 7324434, 5211904, [id number] ####[facility] [address] [place] [address] Basophils/Leukocytes Auto (Bld) [Pure # fraction] 0.1 E9/L Normal 0.0-0.2 [facility] Comment on above: Order Comment: Order Added by Discern Expert. Performed By: #### 2 167013, 2050120, 9436651, 3390193, 8195432, [id number] ####[facility] [address] [place] [address] Eosinophils/100 WBC (Bld) 0.9 % Normal 0.0-8.0 [facility] Comment on above: Order Comment: Order Added by Discern Expert. Performed By: #### 2 684293, 5608583, 0623368, 2490827, 4653954, 10305866 ####[facility] [address] [place] [address] Eosinophils/Leukocyte s Auto (Bld) [Pure # fraction] 0.1 E9/L Normal 0.0-0.5 [facility] Comment on above: Order Comment: Order Added by Discern Expert. Performed By: #### 2 205034, 3972015, 0112771, 9619574, 6607146, 32706095 ####[address] [place] [address] Lymphocytes/100 WBC (Bld) 4.9 % Low 14.0-50.0 [facility] Comment on above: Order Comment: Order Added by Discern Expert. Performed By: #### 2 036393, 3656814, 6953542, 8914619, 6299904, 49636279 ####[address] [address] Lymphocytes/Leukocyte s Auto (Bld) [Pure # fraction] 0.6 E9/L Low 1.0-4.0 [facility] Comment on above: Order Comment: Order Added by Discern Expert. Performed By: #### 2 172331, 3086345, 9100702, 2067628, 7533046, 72908477 ####[address] [address] Monocytes/100 WBC (Bld) 7.5 % Normal 4.0-14.0 [facility] Comment on above: Order Comment: Order Added by Discern Expert. Performed By: #### 2 181719, 7577544, 5922767, 8931661, 9793157, 32988537 ####[address] [address] Monocytes/Leukocytes Auto (Bld) [Pure # fraction] 0.9 E9/L Normal 0.2-1.0 [facility] Comment on above: Order Comment: Order Added by Discern Expert. Performed By: #### 2 806892, 7715064, 7817457, 8388563, 9925516, 61769311 ####[address] [place] [address] Neutrophils/100 WBC (Bld) 86.3 % High 36.0-75.0 [facility] Comment on above: Order Comment: Order Added by Discern Expert. Performed By: #### 2 441239, 0986151, 6210634, 7639764, 4547397, 91261268 ####[address] [place] [address] Neutrophils/Leukocyte s Auto (Bld) [Pure # fraction] 10.7 E9/L High 2.0-7.5 [facility] Comment on above: Order Comment: Order Added by Discern Expert. Performed By: #### 2 300304, 8486110, 9404497, 7237676, 0804268, 50931093 ####[facility] [address] [place] [address] BMPon 05-04-2022 Creatinine [Mass/Vol] 0.8 mg/dL Normal 0.5-1.3 [facility] Comment on above: Performed By: #### 2 576517, 3930796, 2310112, 4361398, 3958220, 26613017 ####[facility] [address] [place] [address] Urea nitrogen [Mass/Vol] 14 mg/dL Normal 5-21 [facility] Comment on above: Performed By: #### 2 282153, 4637038, 8162072, 4248897, 6936549, 65566261 ####[facility] [address] [place] [address] Urea nitrogen/Creatinine [Mass ratio] 18 No Units Normal 10-20 [facility] Comment on above: Performed By: #### 2 435308, 5213160, 1667468, 7268276, 7347567, 04774682 ####[facility] [address] [place] [address] Anion gap [Moles/Vol] 12 mmol/L Normal 6-16 [facility] Comment on above: Performed By: #### 2 581776, 6925033, 9494137, 2767561, 2367938, 44627155 ####[facility] [address] [place] [address] Calcium [Mass/Vol] 9.4 mg/dL Normal 8.9-11.1 [facility] Comment on above: Performed By: #### 2 215150, 5745632, 5249818, 7575469, 7546476, 23181894 ####[facility] [address] [place] [address] Chloride [Moles/Vol] 101 mmol/L Normal 101-[address] [facility] Comment on above: Performed By: #### 2 019115, 9533475, 8733707, 9244556, 5222812, 03682529 ####[facility] [address] [place] [address] CO2 [Moles/Vol] 27 mmol/L Normal 21-31 [facility] Comment on above: Performed By: #### 2 599776, 7491580, 2233071, 4939827, 1846760, 00123058 ####[facility] [address] [place] [address] Glucose [Mass/Vol] 96 mg/dL Normal 55-199 [facility] Comment on above: Result Comment: If t his glucose result represents a fasting glucose, interpretation should refer to the following reference range: 55-99 mg/dL Performed By: #### 2 431536, 6587544, 8112517, 6230073, 1935684, 80188982 ####[facility] [address] [place] [address] Potassium [Moles/Vol] 3.8 mmol/L Normal 3.5-5.3 [facility] Comment on above: Performed By: #### 2 307458, 8404405, 2200855, 8793495, 6920686, 36331433 ####[facility] [address] [place] [address] Sodium [Moles/Vol] 136 mmol/L Normal 135-145 [facility] Comment on above: Performed By: #### 2 163175, 7439200, 1838951, 0496386, 9823260, 96027090 ####[facility] [address] [place] [address] CBC w/ Auto Diffon 2 Erythrocyte distribution width (RBC) [Ratio] 13.5 % Normal 10.9-14.2 [facility] Comment on above: Performed By: #### 2 265127, 3688352, 9317729, 3566270, 9337952, 33130544 ####[address] [address] Hematocrit (Bld) [Volume fraction] 37.5 % Normal 34.0-46.0 [facility] Comment on above: Performed By: #### 2 072903, 7613580, 0343351, 8296164, 6837139, 14708825 ####[address] [address] Hemoglobin (Bld) [Mass/Vol] 12.3 g/dL Normal 12.0-16.0 [facility] Comment on above: Performed By: #### 2 760856, 4406337, 6405021, 7538332, 8160665, 26066109 ####[address] [address] MCH (RBC) [Entitic mass] 30.1 pg Normal 27.0-34.0 [facility] Comment on above: Performed By: #### 2 339110, 6709103, 1634204, 2686114, 7179899, 61310482 ####[address] [address] MCHC (RBC) [Mass/Vol] 32.8 g/dL Normal 31.4-36.0 [facility] Comment on above: Performed By: #### 2 715385, 7939313, 8315030, 4811109, 8598587, 63666026 ####[address] [address] MCV (RBC) [Entitic vol] 92.0 fL Normal 80.0-100.0 [facility] Comment on above: Performed By: #### 2 223268, 6503029, 7986511, 3061799, 3342335, 39595543 ####[address] [address] Platelet mean volume (Bld) [Entitic vol] 6.8 fL Normal 6.4-10.8 [facility] Comment on above: Performed By: #### 2 339509, 0985887, 5737001, 3617394, 4288263, 70987816 ####[facility] [address] [place] [address] Platelets (Bld) [#/Vol] 322.0 E9/L Normal 150.0-500.0 [facility] Comment on above: Performed By: #### 2 759282, 1470992, 2295726, 3955124, 9572000, 06900274 ####[facility] [address] [place] [address] RBC (Bld) [#/Vol] 4.1 E12/L Low 4.3-5.9 [facility] Comment on above: Performed By: #### 2 021711, 9407364, 2455038, 8396728, 3403018, 53563342 ####[facility] [address] [place] [address] WBC corrected for nucl RBC Auto (Bld) [#/Vol] 12.3 E9/L High 4.0-11.0 [facility] Comment on above: Performed By: #### 2 053612, 8300976, 5178102, 8176534, 8653330, 95275118 ####[facility] [address] [place] [address] CHEMISTRYOrdered By: SYSTEM SYSTEM on 05-04-2022 Albumin [Mass/Vol] 3.4 g/dL Normal 3.3 - 5.0 gm/dL [facility] Albumin/Globulin [Mass ratio] 0.7 {ratio} Low 1.1 - 2.2 [facility] ALP [Catalytic activity/Vol] 65 [iU]/d Normal 21 - 98 Int._Unit/L [facility] ALT No additional P-5'-P [Catalytic activity/Vol] 27 [iU]/d Normal 6 - 46 Int._Unit/L [facility] Anion gap [Moles/Vol] 12 mmol/L Normal 6 - 16 mEq/L [facility] AST [Catalytic activity/Vol] 29 [iU]/d Normal 5 - 43 Int._Unit/L [facility] Bilirubin [Mass/Vol] 0.7 mg/dL Normal 0.0 - 1 .1 mg/dL [facility] Bilirubin.direct [Mass/Vol] 0.1 mg/dL Normal 0.1 - 0.4 mg/dL [facility] Bilirubin.indirect [Mass or moles/Vol] 0.6 mg/dL Normal 0.1 - 0.9 mg/dL [facility] Calcium [Mass/Vol] 9.4 mg/dL Normal 8.9 - 11. 1 mg/dL [facility] Chloride [Moles/Vol] 101 mmol/L Normal 101 - 1 11 mmol/L [facility] CO2 [Moles/Vol] 27 mmol/L Normal 21 - 31 mmol/L [facility] Creatinine [Mass/Vol] 0.8 mg/dL Normal 0.5 - 1.3 mg/dL [facility] GFR/1.73 sq M.predicted among blacks MDRD (S/P/Bld) [Vol rate/Area] mL/min/1.73 m2 Normal >=59mL/min/1 .73 m2 [facility] [place] GFR/1.73 sq M.predicted among non-blacks MDRD (S/P/Bld) [Vol rate/Area] mL/min/1.73 m2 Normal >=59mL/min/1 .73 m2 [facility] [place] [facility] S Globulin (S) [Mass/Vol] 4.7 g/dL High 1.4 - 4.0 gm/dL [facility] Glucose [Mass/Vol] 96 mg/dL Normal 55 - 199 mg/dL [facility] Lipase [Catalytic activity/Vol] 40 U/L Normal 13 - 58 unit/L [facility] Potassium [Moles/Vol] 3.8 mmol/L Normal 3.5 - 5.3 mmol/L [facility] Protein [Mass/Vol] 8.1 g/dL High 6.0 - 7.8 gm/dL [facility] Sodium [Moles/Vol] 136 mmol/L Normal 135 - 145 mmol/L [facility] Urea nitrogen [Mass/Vol] 14 mg/dL Normal 5 - 21 mg/dL [facility] Urea nitrogen/Creatinine [Mass ratio] 18 mg/mg Normal 10 - 20 [facility] COAGULATIONOrdered By: Noryciera Mejia on 05-04-2022 aPTT Coag (PPP) [Time] 28.7 s Normal 25.1 - 36.5 second(s) [facility] [place] [facility] INR Coag (PPP) [Relative time] 1.0 {INR} Invalid Interpretation Code [facility] [place] [facility] PT Coag (PPP) [Time] 12.5 s Normal 10.2 - 12.9 second(s) [facility] [place] Abdomen/Pelvis w/ Contras ton 05-04-2022 CT Abdomen/Pelvis w/ Contrast Exam Date/Time: 05/04/2022 14:58 EDT Reason for Exam: Abdominal pain, acute, nonlocalized;Other (please specify) Report IMPRESSION: EVIDENCE OF GASTRIC SURGERY AND THE PATIENT INDICATES THAT SHE HAD SURGERY 8 DAYS AGO. NO FREE AIR IS NOTED, BUT THERE IS FREE FLUID IN THE ABDOMEN. NO ABSCESS CAVITY IS NOTED. THERE IS NO EVIDENCE OF BOWEL OBSTRUCTION, BUT ILEUS, ENTERITIS, OR COLITIS ARE DIFFICULT TO EXCLUDE. FURTHER CLINICAL ASSESSMENT OF THE ABDOMEN IS RECOMMENDED. CLINICAL HISTORY: Abdominal pain, acute, nonlocalized. COMMENT: Images were obtained following the administration of Intravenous contrast. Partially included within the mivyn-oi-fkph is a metallic aortic valve prosthesis. There are multiple low-attenuation cysts scattered in the liver, with the liver otherwise unremarkable. The gallbladder is within normal limits in size. There are small radiopaque densities collecting in the dependent portion of the gallbladder fundus, suggesting tiny gallstones. No gallbladder wall thickening is noted. However, there is some fluid collecting peripheral to the gallbladder. The intrahepatic and extrahepatic bile ducts are upper limits of normal, and proximal extrahepatic bile ducts measure up to 0.7 cm in diameter, with tapering of the common bile duct within the pancreatic head. No radiopaque choledochal calculus is evident. The pancreas is within normal limits in size and configuration. There is no pancreatic ductal dilatation. The spleen and adrenal glands are unremarkable. There are a few small right renal cortical cysts. The kidneys are otherwise unremarkable in appearance. The renal collecting systems are not dilated. No retroperitoneal lymphadenopathy is evident. The abdominal aorta is normal in diameter. No aneurysm is noted. There are metallic surgical densities along the lesser curvature aspect of the body of the stomach. The stomach is not distended. There may be small duodenal diverticula containing gas. There are nondistended small bowel loops containing fluid. There is no evidence of bowel obstruction. The appendix is normal. There is fluid in the lumen of the proximal colon. Most the colon is collapsed. Evaluation of bowel is limited on this study. There is diverticulosis of the distal ascending colon and sigmoid colon, without specific evidence of diverticulitis. It is difficult to exclude colitis on this study. In addition to the fluid noted collecting adjacent to the gallbladder, there is some free fluid peripheral to the liver, in the paracolic gutters, and in the pelvis. No free air is noted. No abscess cavity is evident. There are findings consistent with postsurgical changes along a midline upper abdominal incision. There is fluid and some gas in the lumen of the urinary bladder. The bladder gas could be iatrogenic, but could also be due to cystitis. The patient has had a prior Report hysterectomy. No pelvic mass nor pelvic lymphadenopathy is evident. There is spondylosis, with hypertrophic spurring of lumbar and lower thoracic vertebral bodies. There are hypertrophic arthritic changes of lower lumbar facet joints. All CT scans at this facility use dose modulation, iterative reconstruction, and/or weight based dosing when appropriate to reduce radiation dose to as low as reasonably achievable. FINAL REPORT Dictated: 05/04/2022 3:52 pm Petey Herrera M.D. Signed (Electronic Signature): 05/04/2022 3:52 pm Signed by: Petey Herrera M.D. Transcribed by: SHAQUILLE Technologist: [employer] Technical Comments GFR (mL/min/1/73m2) >60 Contrast: Isovue 370 Contrast amount in ml's: 100 Rectal Contrast Given? No Normal [facility] Consent for Treatmenton 04-07 Consent for Treatment [id number] 0CD:127 Normal [facility] Discharge Instructionson Discharge Instructions [id number] 00CD:127 Normal [facility] ED Clinical Summaryon 2021 ED Clinical Summary [address] [address] ED Clinical Summary Person Information Name: SWATHI VALLADARES/New_Alli Age: 66 Years : 1955 Sex: Female Language: Burmese PCP: VIVI LIAO MD Marital Status: Single Visit Id: Visit Reason: Abdominal pain; Post surgical problem; had surgery last week and felt something rip Speciality: Acuity: 2 Enc Type: Emergency Med Service: Emergency Arrival: 05/04/2022 13:22:45 Discharge: 05/04/2022 17:19:34 LOS: 000 03:57 Checkin: 05/04/2022 13:22:45 Checkout: 05/04/2022 17:19:34 Dispo Type: Home (Routine DC) EVENTS: Event Name Event Status Request Date/Time Start Date/Time Complete Date/Time Arrive Complete 05/04/2022 13:22:45 05/04/2022 13:22:45 05/04/2022 13:22:45 Document Home Meds Request 05/04/2022 13:22:45 Triage Complete 05/04/2022 13:22:45 05/04/2022 13:30:40 05/04/2022 13:30:40 Bed Assign Complete 05/04/2022 13:42:37 05/04/2022 13:42:37 05/04/2022 13:42:37 Dr Exam Complete 05/04/2022 13:42:37 05/04/2022 13:44:01 05/04/2022 13:44:01 RN Exam Complete 05/04/2022 13:42:37 05/04/2022 14:06:44 05/04/2022 14:06:44 Registration Complete 05/04/2022 13:44:01 05/04/2022 13:58:34 05/04/2022 13:58:34 Reg Complete Request 05/04/2022 13:58:34 Reg Bed Request Complete 05/04/2022 13:58:34 05/04/2022 13:58:34 05/04/2022 13:58:34 Pending Labs Complete 05/04/2022 13:58:55 05/04/2022 14:32:31 Lab Complete 05/04/2022 13:58:55 05/04/2022 14:32:31 Fall Risk Request 05/04/2022 14:06:44 Pending Labs Complete 05/04/2022 14:10:21 05/04/2022 14:10:21 05/04/2022 14:32:32 Lab Complete 05/04/2022 14:10:21 05/04/2022 14:10:21 05/04/2022 14:32:32 Meds Admin Complete 05/04/2022 14:18:38 05/04/2022 15:10:01 Pending Labs Request 05/04/2022 14:18:38 Lab Request 05/04/2022 14:18:38 Urine Collect Request 05/04/2022 14:18:38 CT Complete 05/04/2022 14:18:38 05/04/2022 14:35:24 05/04/2022 14:58:26 Pending Labs Complete 05/04/2022 14:20:02 05/04/2022 14:20:02 05/04/2022 14:20:10 Lab Complete 05/04/2022 14:20:02 05/04/2022 14:20:02 05/04/2022 14:20:10 Pending Labs Complete 05/04/2022 14:32:42 05/04/2022 14:32:42 05/04/2022 14:32:42 Discharge Complete 05/04/2022 16:55:03 05/04/2022 17:19:44 05/04/2022 17:19:44 Transfer Complete 05/04/2022 17:19:44 05/04/2022 17:19:44 05/04/2022 17:19:44 AD[address]ESS: [address] [place] [id number] [facility] DOC NOTES: MEDICAL INFORMATION: Prescriptions Given: Medications to Continue with No Changes Other Medications aspirin (aspirin 81 mg Chew Tab) 2 Tablets By Mouth every day. furosemide (Lasix 20 mg Tab) 1 Tablets By Mouth every day. PRN for leg swelling. multivitamin (Flintstones Multivitamins) 1 Tablets Chewed every day. PATIENT EDUCATION INFORMATION: Instructions: Abdominal Pain, Adult Follow up: With: Address: When: [address] [id number] [employer] In 3 days 05/07/2022 Comments: Return to the emergency room if your pain gets worse, vomiting, fever or any new symptoms. DIAGNOSIS: 1:Abdominal pain Normal [facility] ED Patient Education Noteon 05-04-2022 ED Patient Education Note Gastroenterology Abdominal Pain, Adult Pain in the abdomen (abdominal pain) can be caused by many things. Often, abdominal pain is not serious and it gets better with no treatment or by being treated at home. However, sometimes abdominal pain is serious. Your health care provider will ask questions about your medical history and do a physical exam to try to determine the cause of your abdominal pain. Follow these instructions at home: Medicines ? Take coqj-ckh-rtpsilt and prescription medicines only as told by your health care provider. ? Do not take a laxative unless told by your health care provider. General instructions ? Watch your condition for any changes. ? Drink enough fluid to keep your urine pale yellow. ? Keep all follow-up visits as told by your health care provider. This is important. Contact a health care provider if: ? Your abdominal pain changes or gets worse. ? You are not hungry or you lose weight without trying. ? You are constipated or have diarrhea for more than 2?3 days. ? You have pain when you urinate or have a bowel movement. ? Your abdominal pain wakes you up at night. ? Your pain gets worse with meals, after eating, or with certain foods. ? You are vomiting and cannot keep anything down. ? You have a fever. ? You have blood in your urine. Get help right away if: ? Your pain does not go away as soon as your health care provider told you to expect. ? You cannot stop vomiting. ? Your pain is only in areas of the abdomen, such as the right side or the left lower portion of the abdomen. Pain on the right side could be caused by appendicitis. ? You have bloody or black stools, or stools that look like tar. ? You have severe pain, cramping, or bloating in your abdomen. ? You have signs of dehydration, such as: ? Dark urine, very little urine, or no urine. ? Cracked lips. ? Dry mouth. ? Sunken eyes. ? Sleepiness. ? Weakness. ? You have trouble breathing or chest pain. Summary ? Often, abdominal pain is not serious and it gets better with no treatment or by being treated at home. However, sometimes abdominal pain is serious. ? Watch your condition for any changes. ? Take ybum-yym-gvajbkn and prescription medicines only as told by your health care provider. ? Contact a health care provider if your abdominal pain changes or gets worse. ? Get help right away if you have severe pain, cramping, or bloating in your abdomen. This information is not intended to replace advice given to you by your health care provider. Make sure you discuss any questions you have with your health care provider. Document Released: 07/02/2006 Document Revised: 01/31/2020 Document Reviewed: 01/31/2020 [employer] Patient Education ? 2019 [employer]. Normal [facility] ED Patient Summaryon 022 ED Patient Summary [address] [address] Patient Discharge Instructions Person Information Name: SWATHI VALLADARES Age: 66 Years Arrival Date: 05/04/2022 13:22:45 Discharge Diagnosis: 1:Abdominal pain Primary Care Physician: VIVI LIAO MD Provider Information Primary Provider: Yamini Adam M.D. Advanced Metaphysician:None The exam and treatment you received in the Emergency Department were for an urgent problem and are not intended as complete care. It is important that you follow up with a doctor, nurse practitioner, or physician?s surgical dental assistant for ongoing care. If your symptoms become worse or you do not improve as expected and you are unable to reach your usual health care provider, you should return to the Emergency Department. We are available 24 hours a day. SWATHI VALLADARES has been given the following list of patient education materials, prescriptions and follow-up instructions: Follow-up Instructions: With: Address: When: VIVI LIAO [address] [place] [id number] [facility] (1) In 3 days 05/07/2022 Comments: Return to the emergency room if your pain gets worse, vomiting, fever or any new symptoms. In the event that this physician does not participate in your insurance network, please consult with your insurance company to find a nearby participating provider. Patient Education Materials: Abdominal Pain, Adult A MESSAGE TO ALL PATIENTS REGARDING OPIOIDS PRESCRIPTION OPIOIDS: WHAT YOU NEED TO KNOW Prescription opioids can be used to help relieve ykttrhuq-ce-rjisaz pain and are often prescribed following a surgery or injury, or for certain health conditions. These medications can be an important part of the treatment but also come with serious risks. It is important to work with your healthcare provider to make sure you are getting the safest, most effective care. WHAT ARE THE RISKS AND SIDE EFFECTS OF OPIOID USE? Prescription opioids carry serious risks of addiction and overdose, especially with prolonged use. An opioid overdose, often marked by slowed breathing, can cause sudden . The use of prescription opioids can have a number of side effects as well, even when taken as directed: ? Tolerance?meaning you might need to take more of the medication for the same pain relief ? Physical dependence?meaning you have symptoms of withdrawal when a medication is stopped ? Increased sensitivity to pain ? Constipation ? Nausea, vomiting, and dry mouth ? Sleepiness and dizziness ? Confusion ? Depression ? Low levels of testosterone that can result in lower sex drive, energy, and strength ? Itching and sweating RISKS ARE GREATER WITH: ? History of drug misuse, substance use disorder, or overdose ? Mental health conditions (such as depression or anxiety) ? Sleep apnea ? Older age (65 years and older) ? Avoid alcohol while taking prescription opioids. Also, unless specifically advised by your health care provider, medications to avoid include: ? Benzodiazepines (such as Xanax or Valium) ? Muscle relaxants (such as Soma or Flexeril) ? Hypnotics (such as Ambien or Lunesta) ? Other prescription opioids KNOW YOUR OPTIONS Talk to your health care provider about ways to manage your pain that don?t involve prescription opioids. Some of these options may actually work better and have fewer risks and side effects. Options may include: ? Pain relievers such as acetaminophen, ibuprofen, and naproxen ? Some medication that are also used for depression or seizures ? Physical therapy and exercise ? Cognitive behavioral therapy, a psychological, goal-directed approach, in which patients learn how to modify physical, behavioral, and emotional triggers of pain and stress. IF YOU ARE PRESCRIBED OPIOIDS FOR PAIN: ? Never take opioids in greater amounts or more often than prescribed. ? Follow up with your primary health care provider. o Work together to create a plan on how to manage your pain. o Talk about ways to help manage your pain that don?t involve prescription opioids. o Talk about any and all concerns and side effects. ? Help prevent misuse and abuse o Never sell or share prescription opioids. o Never use another person?s prescription opioids. ? Store prescription opioids in a secure place and out of reach of others (this may include visitors, children, friends, and family). ? Safely dispose of unused prescription opioids: Find your community drug take-back program or your pharmacy mail-back program, or flush them down the toilet, following guidance from the Food and Drug Administration (www.fda.gov/Drugs/Res ourcesForYou). ? Visit www.cdc.gov/drugoverdo se to learn about the risks of opioids abuse and overdose. ? If you believe you may be struggling with addiction, tell your health healthcare sales representative and ask for (more content not included)... Normal [facility] HEMATOLOGYOrdered By: SYSTEM SYSTEM on 05-04-2022 Basophils/100 WBC (Bld) 0.4 % Normal 0.0 - 2.0 % [facility] Basophils/Leukocytes Auto (Bld) [Pure # fraction] 0.1 E9/L Normal 0.0 - 0.2 E9/L [facility] Eosinophils/100 WBC (Bld) 0.9 % Normal 0.0 - 8.0 % [facility] Eosinophils/Leukocyte s Auto (Bld) [Pure # fraction] 0.1 E9/L Normal 0.0 - 0.5 E9/L [facility] Lymphocytes/100 WBC (Bld) 4.9 % Low 14.0 - 50.0 % [facility] Lymphocytes/Leukocyte s Auto (Bld) [Pure # fraction] 0.6 E9/L Low 1.0 - 4.0 E9/L [facility] Monocytes/100 WBC (Bld) 7.5 % Normal 4.0 - 14.0 % [facility] Monocytes/Leukocytes Auto (Bld) [Pure # fraction] 0.9 E9/L Normal 0.2 - 1.0 E9/L [facility] Neutrophils/100 WBC (Bld) 86.3 % High 36.0 - 75.0 % [facility] Neutrophils/Leukocyte s Auto (Bld) [Pure # fraction] 10.7 E9/L High 2.0 - 7.5 E9/L [facility] HEMATOLOGYOrdered By: Bernice Billingsley on 05-04-2022 Erythrocyte distribution width (RBC) [Ratio] 13.5 % Normal 10.9 - 14.2 % [facility] Hematocrit (Bld) [Volume fraction] 37.5 % Normal 34.0 - 46.0 % [facility] Hemoglobin (Bld) [Mass/Vol] 12.3 g/dL Normal 12.0 - 16.0 gm/dL [facility] MCH (RBC) [Entitic mass] 30.1 pg Normal 27.0 - 34.0 pg [facility] MCHC (RBC) [Mass/Vol] 32.8 g/dL Normal 31.4 - 36.0 gm/dL [facility] MCV (RBC) [Entitic vol] 92.0 fL Normal 80.0 - 100.0 fL [facility] Platelet mean volume (Bld) [Entitic vol] 6.8 fL Normal 6.4 - 10.8 fL [facility] Platelets (Bld) [#/Vol] 322.0 E9/L Normal 150.0 - 500.0 E9/L [facility] RBC (Bld) [#/Vol] 4.1 E12/L Low 4.3 - 5.9 E12/L [facility] WBC corrected for nucl RBC Auto (Bld) [#/Vol] 12.3 E9/L High 4.0 - 11.0 E9/L [facility] Hep Func Panelon 05-04-2022 Albumin [Mass/Vol] 3.4 g/dL Normal 3.3-5.0 [facility] Comment on above: Performed By: #### 2 018921, 6457071, 4806888, 4547067, 6730022, 47769189 ####[facility] [address] [place] [address] Albumin/Globulin (S) [Mass conc ratio] 0.7 Low 1.1-2.2 [facility] Comment on above: Performed By: #### 2 087659, 6553750, 0549660, 9215502, 7029817, 00805391 ####[facility] [address] [place] [address] ALP [Catalytic activity/Vol] 65 Int._Unit/L Normal 21-98 [facility] Comment on above: Performed By: #### 2 092527, 1936350, 2390072, 4724689, 1856809, 46444995 ####[place] [id number] ALT No additional P-5'-P [Catalytic activity/Vol] 27 Int._Unit/L Normal 6-46 [facility] Comment on above: Performed By: #### 2 012900, 3413385, 1414726, 1458714, 0246180, 43257455 ####[place] [address] AST [Catalytic activity/Vol] 29 Int._Unit/L Normal 5-43 [facility] Comment on above: Performed By: #### 2 893812, 2568596, 9814440, 9595022, 4037964, 42448402 ####[place] [address] Bilirubin [Mass/Vol] 0.7 mg/dL Normal 0.0-1.1 [facility] Comment on above: Performed By: #### 2 604944, 1379049, 5830788, 3782094, 7985224, 41456306 ####[place] [address] Bilirubin.direct [Mass/Vol] 0.1 mg/dL Normal 0.1-0.4 [facility] Comment on above: Performed By: #### 2 852753, 6343224, 5222629, 1630663, 5431040, 76283262 ####[address] [address] Bilirubin.indirect [Mass or moles/Vol] 0.6 mg/dL Normal 0.1-0.9 [facility] Comment on above: Performed By: #### 2 618591, 5950476, 0821008, 0333468, 4596528, 82664290 ####[facility] [address] [place] [address] Globulin (S) [Mass/Vol] 4.7 g/dL High 1.4-4.0 [facility] Comment on above: Performed By: #### 2 202567, 5952053, 0801140, 7458540, 8052594, 17092141 ####[facility] [address] [place] [address] Protein [Mass/Vol] 8.1 g/dL High 6.0-7.8 [facility] Comment on above: Performed By: #### 2 347234, 4544666, 2043419, 8080415, 8885867, 76424131 ####[place] [address] [place] [address] Lipase Levelon 05-04-2022 Lipase [Catalytic activity/Vol] 40 U/L Normal 13-58 [facility] Comment on above: Performed By: #### 2 106793, 9786790, 4473759, 0358342, 2521905, 92669391 ####[facility] [address] [place] [address] PT & PTTon 05-04-2022 aPTT Coag (PPP) [Time] 28.7 second(s) Normal 25.1-36.5 [facility] Comment on above: Result Comment: Para meter 15 days - 4 weeks 1 - 5 months 6 - 11 months 1 - 5 years 6 - 10 years 11 - 17 years PTT Mean: 35.4 (27.6-45.6) Mean: 33.5 (24.8-40.7) Mean: 32.4 (25.1-40.7) Mean: 31.6 (24.0-39.2) Mean: 31.6 (26.9-38.7) Mean: 31.0 (24.6-38.4) Pediatric Reference ranges were obtained from a study by morenita Colbert al. prepared from 1437 samples obtained at 7 different centers using the same coagulation reagent and instrumentation [place] [facility] [place] Currently there are no coagulation studies available worldwide for children to 14 days, and no normal ranges. Heparin therapeutic range (represented by Anti-Factor Xa activity of 0.2 - 0.4 U/mL) corresponds to PTT of 56.6 - 109.0 sec. Performed By: #### 1 5707066 ####[facility] [address] [place] [address] INR Coag (PPP) [Relative time] 1.0 {INR} Invalid Interpretation Code [facility] Comment on above: Result Comment: INR results are specifically intended to assess patients stabilized on long-term Anticoagulation therapy suggested INR?s ?Less Intensive Anticoagulation? 2.0 ? 3.0 Conventional Range 3.0 ? 4.5 Performed By: #### 1 [id number] ####[facility] [address] [place] [address] PT Coag (PPP) [Time] 12.5 second(s) Normal 10.2-12.9 [facility] Comment on above: Performed By: #### 1 4105093 ####[facility] [address] [place] [address] eGFRon 05-04-2022 GFR/1.73 sq M.predicted among blacks MDRD (S/P/Bld) [Vol rate/Area] mL/min/{1.73_m2} Normal >=59 [facility] Comment on above: Order Comment: Order added by Discern Expert. Result Comment: eGFR is race adjusted. AA=. Performed By: #### 2 077943, 5375026, 3495454, 3106825, 8130301, 18388474 ####[facility] [address] [place] [address] GFR/1.73 sq M.predicted among non-blacks MDRD (S/P/Bld) [Vol rate/Area] mL/min/{1.73_m2} Normal >=59 [facility] Comment on above: Order Comment: Order added by Discern Expert. Result Comment: Biotechnician landon kidney disease could be indicated at eGFR's of less than 60 mL/min/1.73m2. Kidney failure is indicated at less than 15 mL/min/1.73m2. Performed By: #### 2 683747, 1468971, 7871664, 7786108, 2231303, 60784206 ####[facility] [address] [place] [address] Basic metabolic 2000 panelon 04-30-2022 Anion gap [Moles/Vol] 16 mmol/L Normal 9-18 [facility] Comment on above: Order Comment: Speci men Type: BLOOD SPECIMEN Ordering Facility: [facility] Address: [address] [place], [place] [address] Performed By: #### 1 9123-9, 27704-05, 70748-6 #### [facility] CLIA [id number] [address] [place] [address] [place] Calcium [Mass/Vol] 9.6 mg/dL Normal 8.5-10.2 [facility] Comment on above: Order Comment: Speci men Type: BLOOD SPECIMEN Ordering Facility: [facility] Address: [address] [place], [place] [address] Performed By: #### 1 9123-9, 27704-05, 76094-1 #### [facility] CLIA [id number] [address] [place] [address] [place] Chloride [Moles/Vol] 96 mmol/L Low 97-105 [facility] Comment on above: Order Comment: Speci men Type: BLOOD SPECIMEN Ordering Facility: [facility] Address: [address] Performed By: #### 1 9123-9, 2776-10, 98672-0 #### [facility] CLIA [id number] [address] [place] [address] [place] CO2 [Moles/Vol] 24 mmol/L Normal 22-30 [facility] Comment on above: Order Comment: Speci men Type: BLOOD SPECIMEN Ordering Facility: [facility] Address: [facility] [address] Performed By: #### 1 9123-9, 27704-05, 17293-3 #### [facility] CLIA [id number] [place] [address] [place] Creatinine [Mass/Vol] 0.57 mg/dL Low 0.58-0.96 [facility] Comment on above: Order Comment: Shamar brothers Type: BLOOD SPECIMEN Ordering Facility: [facility] Address: [address] [place] [address] Performed By: #### 1 9123-9, 2777-1, 75315-0 #### [facility] CLIA [id number] [address] [place] [address] [place] ESTIMATED GLOMERULAR FILTRATION RATE 100 mL/min/1.73m??? Normal >=60 [facility] Comment on above: Order Comment: Ran denene Type: BLOOD SPECIMEN Ordering Facility: [facility] Address: [address] [place] [address] Result Comment: Fatmata mated Glomerular Filtration Rate (eGFR) is calculated using the 2020 CKD-EPI creatinine equation. This equation utilizes serum creatinine, sex, and age as parameters. The creatinine assay has traceable calibration to isotope dilution-mass spectrometry. Refer to KDIGO guidelines for clinical interpretation. In patients with unstable renal function, e.g. those with acute kidney injury, the eGFR may not accurately reflect actual GFR. Performed By: #### 1 9123-9, 2777-, 20872-9 #### [facility] CLIA [id number] [address] [place] [address] [place] Glucose [Mass/Vol] 90 mg/dL Normal 74-99 [facility] Comment on above: Order Comment: Shamar brothers Type: BLOOD SPECIMEN Ordering Facility: [facility] Address: [address] [place] [address] Result Comment: The [place] Diabetes Association (ADA) provides guidance for cutoff values for fasting glucose and random glucose. The ADA defines fasting as no caloric intake for at least 8 hours. Fasting plasma glucose results between 100 to 125 mg/dL indicate increased risk for diabetes (prediabetes). Fasting plasma glucose results greater than or equal to 126 mg/dL meet the criteria for diagnosis of diabetes. In the absence of unequivocal hyperglycemia, results should be confirmed by repeat testing. In a patient with classic symptoms of hyperglycemia or hyperglycemic crisis, random plasma glucose results greater than or equal to 200 mg/dL meet the criteria for diagnosis of diabetes. Reference: Standards of Medical Care in Diabetes 2016, [place] Diabetes Association. Diabetes Care. 2016.39(Suppl 1). Performed By: #### 1 9123-9, 2777-1, 47579-9 #### [facility] CLIA [id number] [place] [address] [place] Potassium [Moles/Vol] 3.6 mmol/L Low 3.7-5.1 [facility] Comment on above: Order Comment: Shamar brothers Type: BLOOD SPECIMEN Ordering Facility: [facility] Address: [address] [place] [address] Performed By: #### 1 9123-9, 2777-, 48805-4 #### [facility] CLIA [id number] [address] [place] [address] [place] Sodium [Moles/Vol] 136 mmol/L Normal 136-144 [facility] Comment on above: Order Comment: Shamar brothers Type: BLOOD SPECIMEN Ordering Facility: [facility] Address: [address] [place] [address] Performed By: #### 1 9123-9, 27704-05, 78012-1 #### [facility] CLIA [id number] [place] [address] [place] Urea nitrogen [Mass/Vol] 9 mg/dL Normal 7-21 [facility] Comment on above: Order Comment: Shamar brothers Type: BLOOD SPECIMEN Ordering Facility: [facility] Address: [address] [place], [place] [address] Performed By: #### 1 9123-9, 2777, 42037-9 #### [facility] CLIA [id number] [address] [place] [address] [place] CNDSon 04-30-2022 CNDS HNO ID: [id number] Author: Gustabo Bradley MD Service: Colorectal Author Type: Resident Type: Discharge Summary Filed: 05/16/2022 7:21 PM Note Text: Attestation signed by Arnaldo Judd MD at 05/21/2022 4:35 AM GENERAL SURGERY DISCHARGE SUMMARY PATIENT NAME: Swathi Valladares ADMISSION DATE: 04/24/2022 DISCHARGE DATE: 04/30/2022 ATTENDING PHYSICIAN: Arnaldo Judd MD Code Status: Not on file Highest Readmission Risk Score: 13 The 30 day readmissions risk score is derived from an internally validated risk model which evaluates patient level characteristics, utilization history, medication orders and lab results up until the day of discharge. Patients with a score of 40 or above are considered highest risk for readmission. Specific patient level drivers will be listed at the bottom of the summary. 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 She recovered in the PACU and was then transitioned to the regular nursing floor. Her diet was advanced to a GI soft diet which was well tolerated. Her NEELAM drain was removed at bedside and she was discharged home on POD 5. Active Hospital Problems No active problems to display. Resolved Hospital Problems Diagnosis Date Noted Date Resolved Gastrointestinal stromal tumor (GIST) (HCC) 04/24/2022 04/24/2022 Transitions of Care Critical Issues: NEW BASELINE FOR PATIENT: NA LABS AND PROCEDURES PENDING AT DISCHARGE: No pending results. CONSULTING TEAMS DURING HOSPITALIZATION: None Treatment Team: Attending Provider: Arnaldo Judd MD PATIENT CONDITION AT DISCHARGE: Stable DISCHARGE DISPOSITION: Home with Self Snf with Self Care INFORMATION PROVIDED TO PATIENT: DC instructions DIET: Resume pre-hospital diet ACTIVITY: Limited to: Lifting restrictions WOUND/SURGICAL SITE CARE: Skin glue ALLERGIES No Known Allergies DISCHARGE MEDICATION: Discharge Medication List as of 04/30/2022 11:03 AM START taking these medications enoxaparin (LOVENOX) 40 mg/0.4 mL Inject 0.4 mL subcutaneously once daily. Normal, Disp-12 mL, R-0 sucralfate (CARAFATE) 1 gram tablet Take 1 tablet by mouth before meals and at bedtime. Normal, Disp-120 tablet, R-0 ondansetron (ZOFRAN) 4 mg tablet Take 1 tablet by mouth every 8 hours as needed for nausea/vomiting. Normal, Disp-60 tablet, R-0 acetaminophen (TYLENOL) 500 mg tablet Take 2 tablets by mouth every 8 hours as needed for pain. Normal, Disp-60 tablet, R-0 oxyCODONE IR (ROXICODONE) 5 mg immediate release tablet Take 1 tablet by mouth every 8 hours as needed. Print RX, Disp-15 tablet, R-0 Dx: 1. Postoperative pain CONTINUE these medications which have NOT CHANGED neomycin 500 mg tablet Take 2 tablets at 6pm, 7pm, and 11pm the day before your surgery Normal, Disp-6 tablet, R-0 hydrOXYchloroQUINE (PLAQUENIL) 200 mg tablet TAKE 1 TABLET BY MOUTH TWICE DAILY WITH FOOD AND YEARLY EYE EXAM Historical Med imatinib (GLEEVEC) 400 mg tablet Take 1 tablet (400 mg) by mouth once daily. Normal, Disp-30 tablet, R-3, Long-term Please use Good Rx. aspirin 81 mg chewable tablet Take 162 mg by mouth once daily. Historical Med famotidine (PEPCID AC) 20 mg tablet Take 1 tablet by mouth as needed. Med Update therapeutic multivitamin (THERA VITAMIN) tablet Take 1 tablet by mouth daily with breakfast. OTC, Long-term PLAN OF CARE: Plan of care discussed with Provider, RN, Patient FUTURE APPOINTMENTS: Future Appointments Date Time Provider Department Center 05/22/2022 3:30 PM MD EBONY Gonzalez 05/23/2022 11:30 AM Arnaldo Judd MD [id number] [facility] The patient's risk for 30-day readmission is determined using the following contributing factors: Pt variables contributing to increased readmission risk: 9 Most Recent BUN Result 8.8 First Resulted Calcium During Admission 1 Insurance - Medicare 1 Discharge Disposition - Home 1 History of COPD 1 Number of Hospitalizations (12 mos.) Gustabo Bradley MD Normal [facility] Magnesium SerPl-mCncon 04-30 Magnesium [Mass/Vol] 2.0 mg/dL Normal 1.7-2.3 [facility] Comment on above: Order Comment: Specciera brothers Type: BLOOD SPECIMEN Ordering Facility: [facility] Address: [address] [place] [address] Performed By: #### 1 9123-9, 2777-1, 62922-3 #### [facility] CLIA [id number] [place] [address] [place] Phosphate SerPl-mCncon 04-30 Phosphate [Mass/Vol] 3.2 mg/dL Normal 2.7-4.8 [facility] Comment on above: Order Comment: Shamar brothers Type: BLOOD SPECIMEN Ordering Facility: [facility] Address: [address] [place] [address] Performed By: #### 1 9123-9, 2777-1, 40022-0 #### [facility] CLIA [id number] [place] [address] [place] Basic metabolic 2000 panelon 04-29-2022 Anion gap [Moles/Vol] 11 mmol/L Normal - [facility] Comment on above: Order Comment: Shamar brothers Type: BLOOD SPECIMENOrdering Facility: [facility] Address: [address] [place] [address] Performed By: #### 2 4321-2, 97341-9, 2777-1 ####[facility] [id number] [place] [address] [place] Calcium [Mass/Vol] 9.2 mg/dL Normal 8.5-10.2 [facility] Comment on above: Order Comment: Speci men Type: BLOOD SPECIMENOrdering Facility: [facility] Address: [address] [place] [address] Performed By: #### 2 4321-2, , 2776-10 ####[facility] [id number] [place] [id number] [place] Chloride [Moles/Vol] 98 mmol/L Normal 97-105 [facility] Comment on above: Order Comment: Speci men Type: BLOOD SPECIMENOrdering Facility: [facility] Address: [address] [place] [address] Performed By: #### 2 4321-2, , 2776-10 ####[facility] [id number] [place] [address] [place] CO2 [Moles/Vol] 28 mmol/L Normal 22-30 [facility] Comment on above: Order Comment: Speci men Type: BLOOD SPECIMENOrdering Facility: [facility] Address: [address] [place] [address] Performed By: #### 2 4321-2, , 2776-10 ####[facility] [id number] [place] [id number] [place] Creatinine [Mass/Vol] 0.58 mg/dL Normal 0.58-0.96 [facility] Comment on above: Order Comment: Speci men Type: BLOOD SPECIMENOrdering Facility: [facility] Address: [address] [place], [place] [address] Performed By: #### 2 4321-2, , 2776-10 ####[facility] [id number] [place] [id number] [place] ESTIMATED GLOMERULAR FILTRATION RATE 100 mL/min/1.73m??? Normal >=60 [facility] Comment on above: Order Comment: Shamar brothers Type: BLOOD SPECIMENOrdering Facility: [facility] Address: [address] [place] [address] Result Comment: Fatmata mated Glomerular Filtration Rate (eGFR) is calculated using the 2020 CKD-EPI creatinine equation. This equation utilizes serum creatinine, sex, and age as parameters. The creatinine assay has traceable calibration to isotope dilution-mass spectrometry. Refer to KDIGO guidelines for clinical interpretation. In patients with unstable renal function, e.g. those with acute kidney injury, the eGFR may not accurately reflect actual GFR. Performed By: #### 2 4321-2, 87042-4, 2776-10 ####[facility] [id number] [place] [id number] [place] Glucose [Mass/Vol] 84 mg/dL Normal 74-99 [facility] Comment on above: Order Comment: Shamar brothers Type: BLOOD SPECIMENOrdering Facility: [facility] Address: [address] [place] [id number] Result Comment: The [place] Diabetes Association (ADA) provides guidance for cutoff values for fasting glucose and random glucose. The ADA defines fasting as no caloric intake for at least 8 hours. Fasting plasma glucose results between 100 to 125 mg/dL indicate increased risk for diabetes (prediabetes). Fasting plasma glucose results greater than or equal to 126 mg/dL meet the criteria for diagnosis of diabetes. In the absence of unequivocal hyperglycemia, results should be confirmed by repeat testing. In a patient with classic symptoms of hyperglycemia or hyperglycemic crisis, random plasma glucose results greater than or equal to 200 mg/dL meet the criteria for diagnosis of diabetes. Reference: Standards of Medical Care in Diabetes 2016, [place] Diabetes Association. Diabetes Care. 2016.39(Suppl 1). Performed By: #### 2 4321-2, , 2776-10 ####[facility] [id number] [place] [id number] [place] Potassium [Moles/Vol] 3.5 mmol/L Low 3.7-5.1 [facility] Comment on above: Order Comment: Shamar brothers Type: BLOOD SPECIMENOrdering Facility: [facility] Address: [address] [place] [address] Performed By: #### 2 4321-2, 66299-2, 2777-1 ####[facility] [id number] [place] [id number] [place] Sodium [Moles/Vol] 137 mmol/L Normal 136-144 [facility] Comment on above: Order Comment: Speci men Type: BLOOD SPECIMENOrdering Facility: [facility] Address: [address] [place], [place] [phone] Performed By: #### 2 4321-2, 85289-2, 2777- ####[facility] [id number] [place] [id number] [place] Urea nitrogen [Mass/Vol] 7 mg/dL Normal 7-21 [facility] Comment on above: Order Comment: Speci men Type: BLOOD SPECIMENOrdering Facility: [facility] Address: [address] [place] [address] [place] [address] Performed By: #### 2 4321-2, , 2777 ####[facility] [id number] [place] [id number] [facility] [place] CASE MANAGEMon 04-29-2022 CASE MANAGEM HNO ID: [id number] Author: ROC Oconnell Service: ? Author Type: Tobacco Sampler Type: Care Mgt Progress Note Filed: 04/29/2022 11:32 AM Note Text: CARE MANAGEMENT DISCHARGE NOTE SERVICE DATE: 04/29/2022 SERVICE TIME: 11:30 LOS: 5 days Admission Date: 04/24/2022 DISCHARGE ARRANGEMENT (list agency and phone number) Discharge Arrangement: Home with Self Care CAREGIVER ASSESSMENT: Caregiver is ready, willing and able to meet the patient's needs as recommended by the inter-professional team:: No Caregiver needed Patient's transition needs and plan for meeting these needs: NA HANDOFF COMMUNICATION: Handoff to: Primary Care Physician Primary Care Physician Name/Phone: Vivi Liao MD [phone] TRANSPORTATION ARRANGEMENTS: Transportation Arrangements: Car ADDITIONAL CONTACT RESOURCES: NA Needs Prior to Discharge: Ready for Discharge Caregiver is ready, willing and able to meet the patient's needs as recommended by the inter-professional team:: No Caregiver needed IMM Follow Up Copy Given: Yes Copy given to:: Patient Method: In Person Transportation Arrangements: Car Patient expects to discharge today. Patient has no concerns, has supportive family. Declines home therapy. SIGNATURE: ROC Oconnell PATIENT NAME: Swathi Valladares DATE: April 29, 2022 TIME: 11:30 AM PAGER/CONTACT #: [phone] Normal [facility] CBC panel Auto (Bld)on 04-29 Erythrocyte distribution width (RBC) [Ratio] 13.0 % Normal 11.5-15.0 [facility] Comment on above: Order Comment: Speci men Type: BLOOD SPECIMEN [facility]ing Facility: [facility] Address: [address] [place] [address] Performed By: #### 1 9123-9, 2777-, 62937-8 #### [facility] CLIA [id number] [address] [place] [address] [place] Hematocrit (Bld) [Volume fraction] 33.8 % Low 36.0-46.0 [facility] Comment on above: Order Comment: Speci men Type: BLOOD SPECIMEN Ordering Facility: [facility] Address: [address] [place] [address] Performed By: #### 1 9123-9, 2777-, 63887-7 #### [facility] CLIA [id number] [address] [place] [address] [place] Hemoglobin (Bld) [Mass/Vol] 11.2 g/dL Low 11.5-15.5 [facility] Comment on above: Order Comment: Speci men Type: BLOOD SPECIMEN Ordering Facility: [facility] Address: [address] [place] [address] Performed By: #### 1 9123-9, 2777, 96449-7 #### [facility] CLIA [id number] [address] [place] [address] [place] MCH (RBC) [Entitic mass] 30.3 pg Normal 26.0-34.0 [facility] Comment on above: Order Comment: Speci men Type: BLOOD SPECIMEN Ordering Facility: [facility] Address: [address] [place] [address] Performed By: #### 1 9123-9, 2776-10, #### [facility] CLIA [id number] [address] [place] [address] [place] MCHC (RBC) [Mass/Vol] 33.1 g/dL Normal 30.5-36.0 [facility] Comment on above: Order Comment: Speci men Type: BLOOD SPECIMEN Ordering Facility: [facility] Address: [address] [place] [address] Performed By: #### 1 9123-9, 2776-10, #### [facility] CLIA [id number] [address] [place] [address] [place] MCV (RBC) [Entitic vol] 91.4 fL Normal 80.0-100.0 [facility] Comment on above: Order Comment: Speci men Type: BLOOD SPECIMEN Ordering Facility: [facility] Address: [address] [place] [address] Performed By: #### 1 9123-9, 2776-10, #### [facility] CLIA [id number] [address] [place] [address] [place] Nucleated RBC (Bld) [#/Vol] 10*3/uL Normal <0.01 [facility] Comment on above: Order Comment: Speci men Type: BLOOD SPECIMEN Ordering [facility]: [facility] Address: [address] [place] [address] Performed By: #### 1 9123-9, 2776-10, #### [facility] CLIA [id number] [address] [place] [address] [facility] [place] Platelet mean volume (Bld) [Entitic vol] 8.7 fL Low 9.0-12.7 [facility] Comment on above: Order Comment: Speci men Type: BLOOD SPECIMEN Ordering [facility]: [facility] Address: [address] [place] [address] Performed By: #### 1 9123-9, 2777-1, 65615-9 #### [facility] CLIA [id number] [place] [address] [place] Platelets (Bld) [#/Vol] 162 10*3/uL Normal 150-400 [facility] Comment on above: Order Comment: Speci men Type: BLOOD SPECIMEN Ordering Facility: [facility] Address: [address] [place], [place] [address] Performed By: #### 1 9123-9, 2777-, 82595-8 #### [facility] CLIA [id number] [place], [place] [id number] [place] RBC (Bld) [#/Vol] 3.70 10*6/uL Low 3.90-5.20 [facility] Comment on above: Order Comment: Speci men Type: BLOOD SPECIMEN Ordering Facility: [facility] Address: [address] [place], [place] [id number] Performed By: #### 1 9123-9, 277-, 71794-0 #### [facility] CLIA [id number] [place], [place] [address] [place] WBC (Bld) [#/Vol] 5.24 10*3/uL Normal 3.70-11.00 [facility] Comment on above: Order Comment: Speci men Type: BLOOD SPECIMEN Ordering Facility: [facility] Address: [address] [place] [address] Performed By: #### 1 9123-9, 2777-, 91652-2 #### [facility] CLIA [id number] [place], [place] [address] [place] Magnesium SerPl-mCncon 04-29 Magnesium [Mass/Vol] 2.0 mg/dL Normal 1.7-2.3 [facility] Comment on above: Order Comment: Speci men Type: BLOOD SPECIMENOrdering Facility: [facility] Address: [address] [place], [place] [id number] Performed By: #### 2 4321-2, 10802-4, 2777- ####[facility]CLIA [id number] [place] [id number] [place] PT EDon 04-29-2022 PT ED HNO ID: [id number] Author: Melani Bonner DTR Service: Nutrition Therapy Author Type: Stripping Machine Operator Type: Patient Education Filed: 04/29/2022 2:31 PM Note Text: NUTRITION THERAPY PATIENT EDUCATION SERVICE DATE: 04/29/2022 SERVICE TIME: 10:30 AM TOPIC: Diet: Gastric Bypass/Reconstrution Surgery ( Not Intended for Weight Loss) LEARNING ASSESSMENT Individuals Assessed: Patient Preferred Learning Method: : Verbal Instruction and Written Instruction Barriers to Learning: : None Evident LEARNING RESPONSE Instruction Provided to: Patient Patient / Family Response: Verbalizes Understanding Method of Instruction: Written instruction - handouts Verbal instruction Material(s) Provided to Patient: Gastric Bypass/Reconstrution Surgery ( Not Intended for Weight Loss) Follow-Up Plan: Patient instructed to call with any further issues Referral (Recommendation): Nutrition - Inpatient and Nutrition - Outpatient MNT Billing: $ Routine Care : 16-30 minutes SIGNATURE: Melani Bonner DTR PATIENT NAME: Swathi Valladares DATE: April 29, 2022 TIME: 1:12 PM PAGER: Normal [facility] Phosphate SerPl-ncon 04-29 Phosphate [Mass/Vol] 3.2 mg/dL Normal 2.7-4.8 [facility] Comment on above: Order Comment: Speci men Type: BLOOD SPECIMEN Ordering Facility: [facility] Address: [address] [place] [address] Performed By: #### 1 9123-9, 2777-1, 06194-0 #### [facility] CLIA [id number] [address] [place] [id number] [place] THERAPY NTon 04-29-2022 THERAPY NT HNO ID: [id number] Author: WAYNE Hilario/Ursula Service: Occupational Therapy Author Type: Occupational Therapist Type: Therapy (PT/OT/Speech/Resp) Filed: 04/29/2022 1:19 PM Note Text: Occupational Therapy Treatment SERVICE DATE: 04/29/2022 SERVICE TIME: 1300 to 1310 ROOM: [place] [address] Recommended Discharge Disposition: Home Anticipated Discharge Needs: Physical Assist at Home;Equipment Physical Assist at Home for: Transportation;Shoppin g;Cleaning;Laundry;Sirisha ls Recommended Discharge Equipment: Grab Bars-Shower;Grab Bars-Toilet;Hand Held Shower;Lumber Handler;Shower Chair OT 6 Clicks Score: 24 Precautions/Activity Restrictions: Fall Risk;Lines/Tubes/Drain s;Abdominal Isolation Type: None Current Hospital Course: s/p laparoscopic gastric tumor resection Reason for Hospital Admission: 66 y/o F admitted with large gastric mass, s/p exploratory laparotomy, resection of gastric tumor with distal gastrectomy Relevant Past Medical History: CHF, chronic cough, diverticulitis, TAVR, GERD, CVA, CPOD, lupus Response to Therapy Interventions: Good participation in activities Occupational Therapy Problem List: Impaired Self Care;Decreased Activity Tolerance;Functional Mobility Impairment;Balance Impaired Cognition/Communicatio n Deficits Responsiveness: Alert, Awake Follows Commands: 3-step Commands Treatment Interventions: Education;Self Care / Home Management;Energy Conservation Training;Joint Mobility;Strengthening ;Functional Mobility Training;Balance Training Home Environment Patient Lives With: Family (lives with 2 grandchildren) Assistance Available: PRN Entry To Home: Stairs;With Rail Number Of Stairs Into Home: 3 Number Of Stairs To Bed/Bath: one floor set up Tub/Shower Type: has both tub and shower, uses walk in shower Laundry: in basement. 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 Patient Report: I may be going home today or tomorrow CURRENT FUNCTIONAL STATUS: Most recent performance Current Activities of Daily Living Assist Level Additional Information Feeding Modified Independent Grooming Modified Independent Bathing Upper Body Supervision Bathing Lower Body Stand By Assistance Dressing Upper Body Modified Independent Dressing Lower Body Modified Independent Toileting Modified Independent Instrumental Activities of Daily Living Assist Level Additional Information Meal/Beverage Prep Cleaning Laundry Medication Management with Strategies Functional Mobility Assist Level Additional Information Rolling Supine to Sit Modified Independent Sit to Supine Modified Independent Scooting Modified Independent Sit to Stand Modified Independent Stand to Sit Modified Independent Bed to Chair Toilet/Commode Shower Functional Mobility Supervision Blank patel indicate activity not attempted Balance: Static Sitting;Dynamic Sitting;Static Standing;Dynamic Standing Static Sitting Balance: Normal Patient able to maintain steady balance without handhold support Dynamic Sitting Balance: Normal Patient accepts maximal challenge and can shift weight easily within full range in all directions Static Standing Balance: Good Patient able to maintain balance without handhold support, limited postural sway Dynamic Standing Balance: Fair Patient accepts minimal challenge, able to maintain balance while turning head/trunk Learning/Educational Needs: Discharge Plan;Family Education/Training;Equ ipment;Functional Activities/Mobility;Pl an of Care;Precautions;Rehab ilitation Techniques and Procedures;Safety;Self Care Goals for Plan of Care: Patient /Caregiver Goals: Go Home Goals: Patient will demonstrate progress with self-care, cognitive and/or coping needs identified to allow safe discharge to home with available support and/or physical assistance. Progress Toward Goals: Progressing as expected Rehab Potential: Good Patient will be discontinued from Occupational Therapy when no further skilled needs are identified in this setting. PLAN: OT Frequency: Discontinue therapy services Reasons Therapy Services Discontinued: Goals met Plan of Care developed with: Patient TREATMENT INTERVENTIONS: Therapy Diagnosis: Reduced mobility-other;Decreas ed activities of daily living (ADL) Interventions Provided: Self Snf Management (46429) Self Snf Management (55825) Treatment Minutes: 10 $ Self Snf Management (99651) Billed Units: 1 unit Educated on energy conservation techniques including the importance of pursed lip breathing, pacing self, maintaining good posture, and organizing self and time in order to increase functional activity tolerance and independence and decrease fatigue and risk of falls. Handout given to pt. (more content not included)... Normal [facility] THERAPY NT HNO ID: [id number] Author: Matthieu Ashraf, PT Service: Physical Therapy Author Type: Physical Therapist Type: Therapy (PT/OT/Speech/Resp) Filed: 04/29/2022 9:04 AM Note Text: Physical Therapy Treatment SERVICE DATE: 04/29/2022 SERVICE TIME: 0845 to 0855 ROOM: [place] [address] Recommended Discharge Disposition: Home PT Recommended Discharge Disposition Comments: Patient will benefit from home PT upon discharge for continued strengthening and improvement in activity tolerance for return to baseline function Anticipated Discharge Needs: Physical Assist at Home;Equipment Physical Assist at Home for: Transportation;Shoppin g;Cleaning;Laundry;Sirisha ls Recommended Discharge Equipment: Shower Chair PT 6 Clicks Score: 24 Precautions/Activity Restrictions: Fall Risk;Lines/Tubes/Drain s;Abdominal Isolation Type: None Current Hospital Course: s/p laparoscopic gastric tumor resection Reason for Hospital Admission: 66 y/o F admitted with large gastric mass, s/p exploratory laparotomy, resection of gastric tumor with distal gastrectomy Relevant Past Medical History: CHF, chronic cough, diverticulitis, TAVR, GERD, CVA, CPOD, lupus Response to Therapy Interventions: Good participation in activities, Improved tolerance for activity Assessment Comments: Patient ambulating and performing all functional mobility independently. Patient reported no nausea with upright postioning and ambulation. Patient will be discharged at this time from acute skilled PT services. Physical Therapy Problem List: Decreased Activity Tolerance;Pain;Functio nal Mobility Impairment Treatment Interventions: Education;Strengthenin g;Functional Mobility Training;Balance Training;Neuromuscular Re-education;Pain Management Home Environment Patient Lives With: Family (lives with 2 grandchildren) Assistance Available: PRN Entry To Home: Stairs;With Rail Number Of Stairs Into Home: 3 Number Of Stairs To Bed/Bath: one floor set up Tub/Shower Type: has both tub and shower, uses walk in shower Laundry: in basement. 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 CURRENT FUNCTIONAL STATUS: Most recent performance Current Functional Mobility Assist Level Additional Information Rolling Stand By Assistance Supine to Sit Supervision Sit to Supine Supervision Scooting Supervision Sit to Stand Supervision Stand to Sit Supervision Bed to Chair Toilet/Commode Gait Supervision Gait Device: None Gait Distance (feet): 500 ft Stairs Curb Step Car Transfer Blank patel indicate activity not attempted General Deviations/Observation s: Flexed trunk posture;Step length decreased Balance: Static Sitting;Dynamic Sitting;Static Standing;Dynamic Standing Static Sitting Balance: Normal Patient able to maintain steady balance without handhold support Dynamic Sitting Balance: Normal Patient accepts maximal challenge and can shift weight easily within full range in all directions Static Standing Balance: Normal Patient able to maintain steady balance without handhold support Dynamic Standing Balance: Good Patient accepts moderate challenge, able to maintain balance while picking up object off floor -HLM: 8: Walk 250 feet or more Learning/Educational Needs: Discharge Plan;Functional Activities/Mobility;Pa in Management;Plan of Care;Precautions;Rehab ilitation Techniques and Procedures;Safety Goals for Plan of Care: Patient /Caregiver Goals: Go Home Goals: Patient will demonstrate progress with functional mobility to allow safe discharge to home with available support and/or physical assistance. Transfer sit to/from stand with: Stand By Assistance Ambulate with: Stand By Assistance Distance: 100 ft Device: Wheeled Walker Ambulate up and down steps with: Stand By Assistance Number of steps: 3 Device: Rail Progress Toward Goals: Progressing as expected Rehab Potential: Good Patient will be discontinued from Physical Therapy when no further skilled needs are identified in this setting. PLAN: PT Frequency: Discontinue therapy services Reasons Therapy Services Discontinued: Goals met Plan of Care developed with: Patient;Family TREATMENT INTERVENTIONS: Therapy Diagnosis: Reduced mobility-other Interventions Provided: Gait Training (11717) Gait Training (55112) Treatment Minutes: 10 $ Gait Training (57704) Billed Units: 1 unit Patient ambulated 500 ft without AD independently with no complaints of nausea at this time. PT provided verbal cues for upright posture in standing and ambulation. Patient is no functionally independent and has met PT goals. PT services will be discontinued at this time. Training AND edu (more content not included)... Normal [facility] Basic metabolic 2000 panelon 04-28-2022 Anion gap [Moles/Vol] 12 mmol/L Normal 9-18 [facility] Comment on above: Order Comment: Shamar brothers Type: BLOOD SPECIMEN [facility]: [facility] Address: [address] [place] [address] Performed By: #### 1 9123-9, 2777-1, 45047-8 #### [facility] CLIA [id number] [address] [place] [address] [place] Calcium [Mass/Vol] 8.9 mg/dL Normal 8.5-10.2 [facility] Comment on above: Order Comment: Shamar brothers Type: BLOOD SPECIMEN Ordering Facility: [facility] Address: [address] [place] [address] Performed By: #### 1 9123-9, 2777-1, 64779-7 #### [facility] CLIA [id number] [address] [place] [address] [place] Chloride [Moles/Vol] 98 mmol/L Normal 97-105 [facility] Comment on above: Order Comment: Speci men Type: BLOOD SPECIMEN Ordering Facility: [facility] Address: [address] [place] [address] Performed By: #### 1 9123-9, 2777-, 17166-8 #### [facility] CLIA [id number] [address] [place] [address] [place] CO2 [Moles/Vol] 27 mmol/L Normal 22-30 [facility] Comment on above: Order Comment: Speci men Type: BLOOD SPECIMEN Ordering Facility: [facility] Address: [address] [place] [address] Performed By: #### 1 9123-9, 2777-, 46540-5 #### [facility] CLIA [id number] [address] [place] [address] [place] Creatinine [Mass/Vol] 0.52 mg/dL Low 0.58-0.96 [facility] Comment on above: Order Comment: Speci men Type: BLOOD SPECIMEN Ordering Facility: [facility] Address: [address] [place] [address] Performed By: #### 1 9123-9, 2777-, 16116-3 #### [facility] CLIA [id number] [address] [place] [address] [place] ESTIMATED GLOMERULAR FILTRATION RATE 103 mL/min/1.73m??? Normal >=60 [facility] Comment on above: Order Comment: Speci men Type: BLOOD SPECIMEN Ordering Facility: [facility] Address: [address] [place] [address] Result Comment: Fatmata mated Glomerular Filtration Rate (eGFR) is calculated using the 2020 CKD-EPI creatinine equation. This equation utilizes serum creatinine, sex, and age as parameters. The creatinine assay has traceable calibration to isotope dilution-mass spectrometry. Refer to KDIGO guidelines for clinical interpretation. In patients with unstable renal function, e.g. those with acute kidney injury, the eGFR may not accurately reflect actual GFR. Performed By: #### 1 9123-9, 2777-1, 86226-3 #### [facility] CLIA [id number] [place] [address] [place] Glucose [Mass/Vol] 63 mg/dL Low 74-99 [facility] Comment on above: Order Comment: Shamar brothers Type: BLOOD SPECIMEN Ordering Facility: [facility] Address: [address] [place] [address] Result Comment: The [place] Diabetes Association (ADA) provides guidance for cutoff values for fasting glucose and random glucose. The ADA defines fasting as no caloric intake for at least 8 hours. Fasting plasma glucose results between 100 to 125 mg/dL indicate increased risk for diabetes (prediabetes). Fasting plasma glucose results greater than or equal to 126 mg/dL meet the criteria for diagnosis of diabetes. In the absence of unequivocal hyperglycemia, results should be confirmed by repeat testing. In a patient with classic symptoms of hyperglycemia or hyperglycemic crisis, random plasma glucose results greater than or equal to 200 mg/dL meet the criteria for diagnosis of diabetes. Reference: Standards of Medical Care in Diabetes 2016, [place] Diabetes Association. Diabetes Care. 2016.39(Suppl 1). Performed By: #### 1 9123-9, 2777-, 42856-5 #### [facility] CLIA [id number] [address] [place] [address] [place] Potassium [Moles/Vol] 3.5 mmol/L Low 3.7-5.1 [facility] Comment on above: Order Comment: Shamar brothers Type: BLOOD SPECIMEN Ordering Facility: [facility] Address: [address] [place] [id number] Performed By: #### 1 9123-9, 2777-, 60177-2 #### [facility] CLIA [id number] [place] [address] [place] Sodium [Moles/Vol] 137 mmol/L Normal 136-144 [facility] Comment on above: Order Comment: Shamar brothers Type: BLOOD SPECIMEN Ordering Facility: [facility] Address: [address] [place] [address] Performed By: #### 1 9123-9, 2777-1, 69270-7 #### [facility] CLIA [id number] [place] [facility] Urea nitrogen [Mass/Vol] 8 mg/dL Normal 7-21 [facility] Comment on above: Order Comment: Speci men Type: BLOOD SPECIMEN Ordering Facility: [facility] Address: [address] [place] [address] Performed By: #### 1 9123-9, 2777-1, 95384-3 #### [facility] CLIA [id number] CBC panel Auto (Bld)on 04-28 Erythrocyte distribution width (RBC) [Ratio] 12.9 % Normal 11.5-15.0 [facility] Comment on above: Order Comment: Speci men Type: BLOOD SPECIMENOrdering Facility: [facility] Address: [address] [place] [address] Performed By: #### 5 8410-2 ####[facility] [id number] [address] Hematocrit (Bld) [Volume fraction] 35.5 % Low 36.0-46.0 [facility] Comment on above: Order Comment: Speci men Type: BLOOD SPECIMENOrdering Facility: [facility] Address: [address] [place] [address] Performed By: #### 5 8410-2 ####[facility] LABORATORYCLIA [id number] [place] [address] [place] Hemoglobin (Bld) [Mass/Vol] 11.8 g/dL Normal 11.5-15.5 [facility] Comment on above: Order Comment: Speci men Type: BLOOD SPECIMENOrdering Facility: [facility] Address: [address] [place] [address] Performed By: #### 5 8410-2 ####[facility] LABORATORYCLIA [id number] [address] MCH (RBC) [Entitic mass] 30.8 pg Normal 26.0-34.0 [facility] Comment on above: Order Comment: Speci men Type: BLOOD SPECIMENOrdering Facility: [facility] Address: [address] [place] [address] Performed By: #### 5 8410-2 ####[facility] LABORATORYCLIA [id number] [address] [place] MCHC (RBC) [Mass/Vol] 33.2 g/dL Normal 30.5-36.0 [facility] Comment on above: Order Comment: Speci men Type: BLOOD SPECIMENOrdering Facility: [facility] Address: [address] [place] [address] Performed By: #### 5 8410-2 ####[facility] LABORATORYCLIA [id number] [address] [place] MCV (RBC) [Entitic vol] 92.7 fL Normal 80.0-100.0 [facility] Comment on above: Order Comment: Speci men Type: BLOOD SPECIMENOrdering Facility: [facility] Address: [address] [place] [address] Performed By: #### 5 8410-2 ####[facility] LABORATORYCLIA [id number] [address] Nucleated RBC (Bld) [#/Vol] 10*3/uL Normal <0.01 [facility] Comment on above: Order Comment: Speci men Type: BLOOD SPECIMENOrdering Facility: [facility] Address: [address] [place] [address] Performed By: #### 5 8410-2 ####[facility] LABORATORYCLIA [id number] [address] Platelet mean volume (Bld) [Entitic vol] 9.1 fL Normal 9.0-12.7 [facility] Comment on above: Order Comment: Speci men Type: BLOOD SPECIMENOrdering Facility: [facility] Address: [address] [place] [address] Performed By: #### 5 8410-2 ####[facility]ORATORYCLIA [id number] [address] Platelets (Bld) [#/Vol] 159 10*3/uL Normal 150-400 [facility] Comment on above: Order Comment: Speci men Type: BLOOD SPECIMENOrdering Facility: [facility] Address: [address] [place] [address] Performed By: #### 5 8410-2 ####[facility] LABORATORYCLIA [id number] [place] [address] [place] RBC (Bld) [#/Vol] 3.83 10*6/uL Low 3.90-5.20 [facility] Comment on above: Order Comment: Speci men Type: BLOOD SPECIMENOrdering Facility: [facility] Address: [address] [place] [address] Performed By: #### 5 8410-2 ####[facility] LABORATORYCLIA [id number] [address] [facility] WBC (Bld) [#/Vol] 5.25 10*3/uL Normal 3.70-11.00 [facility] Comment on above: Order Comment: Speci men Type: BLOOD SPECIMENOrdering Facility: [facility] Address: [address] [place] [address] Performed By: #### 5 8410-2 ####[facility] LABORATORYCLIA [id number] [address] [place] Magnesium SerPl-mCncon 04-28 Magnesium [Mass/Vol] 1.9 mg/dL Normal 1.7-2.3 [facility] Comment on above: Order Comment: Speci men Type: BLOOD SPECIMEN [facility]ing [facility]: [facility] Address: [address] [place] [address] Performed By: #### 1 9123-9, 2777-1, 07202-6 #### [facility] CLIA [id number] NURSING PROGon 04-28-2022 NURSING PROG HNO ID: [id number] Author: Lauren Mejia RN Service: ? Author Type: Registered Nurse Type: Nursing Progress Note Filed: 04/28/2022 11:32 AM Note Text: Nursing Progress Note Patient Name: Swathi Valladares Patient Location: / __ Pt A/ox3. Advanced to full liqs. VET ASSISTANT dc'd and IVF decreased to KVO. Pt up with steady gait. Magnesium and Kphos boluses given. Pt states unable to take po Kcl; will notify surgery. Declines tylenol. Continue to monitor pain. This note was completed by: Lauren Mejia Normal [facility] Phosphate SerPl-mCncon 04-28 Phosphate [Mass/Vol] 2.3 mg/dL Low 2.7-4.8 [facility] Comment on above: Order Comment: Speci men Type: BLOOD SPECIMEN [facility]ing [facility]: [facility] Address: [address] [place] [address] Performed By: #### 1 9123-9, 2777-1, 95310-6 #### [facility] CLIA [id number] [address] [place] [address] [place] Basic metabolic 2000 panelon 04-27-2022 Anion gap [Moles/Vol] 8 mmol/L Low 9-18 [facility] Comment on above: Order Comment: Speci men Type: BLOOD SPECIMENOrdering Facility: [facility] Address: [address] [place] [address] Performed By: #### 2 4321-2, 24801-0, 2777-1 ####[facility] LABORATORYCLIA [id number] [place] [address] [place] Calcium [Mass/Vol] 8.6 mg/dL Normal 8.5-10.2 [facility] Comment on above: Order Comment: Speci men Type: BLOOD SPECIMENOrdering Facility: [facility] Address: [address] Performed By: #### 2 4321-2, , 2776-10 ####[facility] LABORATORYCLIA [id number] [place] [id number] [place] Chloride [Moles/Vol] 97 mmol/L Normal 97-105 [facility] Comment on above: Order Comment: Speci men Type: BLOOD SPECIMENOrdering Facility: [facility] Address: [address] [place], [place] [address] Performed By: #### 2 4321-2, , 2776-10 ####[facility] LABORATORYCLIA [id number] [place] [address] [place] CO2 [Moles/Vol] 30 mmol/L Normal 22-30 [facility] Comment on above: Order Comment: Speci men Type: BLOOD SPECIMENOrdering Facility: [facility] Address: [address] [place], [place] [address] Performed By: #### 2 4321-2, , 2776-10 ####[facility] LABORATORYCLIA [id number] [place] [address] [place] Creatinine [Mass/Vol] 0.54 mg/dL Low 0.58-0.96 [facility] Comment on above: Order Comment: Speci men Type: BLOOD SPECIMENOrdering Facility: [facility] Address: [address] Performed By: #### 2 4321-2, , 2776-10 ####[facility] LABORATORYCLIA [id number] [address] OF [place] ESTIMATED GLOMERULAR FILTRATION RATE 102 mL/min/1.73m??? Normal >=60 [facility] Comment on above: Order Comment: Speci men Type: BLOOD SPECIMENOrdering Facility: [facility] Address: [address] [place] [address] Result Comment: Fatmata mated Glomerular Filtration Rate (eGFR) is calculated using the 2020 CKD-EPI creatinine equation. This equation utilizes serum creatinine, sex, and age as parameters. The creatinine assay has traceable calibration to isotope dilution-mass spectrometry. Refer to KDIGO guidelines for clinical interpretation. In patients with unstable renal function, e.g. those with acute kidney injury, the eGFR may not accurately reflect actual GFR. Performed By: #### 2 4321-2, , 2776-10 ####[facility] LABORATORYCLIA [id number] [place] [id number] [place] Glucose [Mass/Vol] 86 mg/dL Normal 74-99 [facility] Comment on above: Order Comment: Shamar brothers Type: BLOOD SPECIMENOrdering Facility: [facility] Address: [address] [place] [id number] Result Comment: The [place] Diabetes Association (ADA) provides guidance for cutoff values for fasting glucose and random glucose. The ADA defines fasting as no caloric intake for at least 8 hours. Fasting plasma glucose results between 100 to 125 mg/dL indicate increased risk for diabetes (prediabetes). Fasting plasma glucose results greater than or equal to 126 mg/dL meet the criteria for diagnosis of diabetes. In the absence of unequivocal hyperglycemia, results should be confirmed by repeat testing. In a patient with classic symptoms of hyperglycemia or hyperglycemic crisis, random plasma glucose results greater than or equal to 200 mg/dL meet the criteria for diagnosis of diabetes. Reference: Standards of Medical Care in Diabetes 2016, [place] Diabetes Association. Diabetes Care. 2016.39(Suppl 1). Performed By: #### 2 4321-2, , 2776-10 ####[facility] LABORATORYCLIA [id number] [place] [address] [place] Potassium [Moles/Vol] 3.4 mmol/L Low 3.7-5.1 [facility] Comment on above: Order Comment: Shamar brothers Type: BLOOD SPECIMENOrdering Facility: [facility] Address: [address] [place] [id number] Performed By: #### 2 4321-2, , 2777-1 ####[facility] LABORATORYCLIA [id number] [place] [address] [place] Sodium [Moles/Vol] 135 mmol/L Low 136-144 [facility] Comment on above: Order Comment: Speci men Type: BLOOD SPECIMENOrdering Facility: [facility] Address: [address] [place] [address] Performed By: #### 2 4321-2, 54944-1, 2776-10 ####[facility] LABORATORYCLIA [id number] [place] [address] [place] Urea nitrogen [Mass/Vol] 9 mg/dL Normal 7-21 [facility] Comment on above: Order Comment: Speci men Type: BLOOD SPECIMENOrdering Facility: [facility] Address: [address] [place] [address] Performed By: #### 2 4321-2, , 2776-10 ####[facility] LABORATORYCLIA [id number] [place] [address] [place] CBC panel Auto (Bld)on 04-27 Erythrocyte distribution width (RBC) [Ratio] 12.9 % Normal 11.5-15.0 [facility] Comment on above: Order Comment: Speci men Type: BLOOD SPECIMEN [facility]: [facility] Address: [address] [place] [address] Performed By: #### 1 9123-9, 2776-10, 90087-0 #### [facility] CLIA [id number] [place] [address] [place] Hematocrit (Bld) [Volume fraction] 38.5 % Normal 36.0-46.0 [facility] Comment on above: Order Comment: Speci men Type: BLOOD SPECIMEN [facility]ing [facility]: [facility] Address: [address] [place] [address] Performed By: #### 1 9123-9, 2776-10, 32686-4 #### [facility] CLIA [id number] [address] [place] [address] [place] Hemoglobin (Bld) [Mass/Vol] 12.6 g/dL Normal 11.5-15.5 [facility] Comment on above: Order Comment: Speci men Type: BLOOD SPECIMEN [facility]ing [facility]: [facility] Address: [address] [place] [address] Performed By: #### 1 9123-9, 27704-05, #### [facility] CLIA [id number] [address] [place] [address] [place] MCH (RBC) [Entitic mass] 30.5 pg Normal 26.0-34.0 [facility] Comment on above: Order Comment: Speci men Type: BLOOD SPECIMEN [facility]ing [facility]: [facility] Address: [address] [place] [address] Performed By: #### 1 9123-9, 2776-10, #### [facility] CLIA [id number] [address] [place] [address] [place] MCHC (RBC) [Mass/Vol] 32.7 g/dL Normal 30.5-36.0 [facility] Comment on above: Order Comment: Speci men Type: BLOOD SPECIMEN [facility]ing [facility]: [facility] Address: [address] [place] [address] Performed By: #### 1 9123-9, 2776-10, #### [facility] CLIA [id number] [address] [place] [address] [place] MCV (RBC) [Entitic vol] 93.2 fL Normal 80.0-100.0 [facility] Comment on above: Order Comment: Speci men Type: BLOOD SPECIMEN [facility]ing [facility]: [facility] Address: [address] [place] [address] Performed By: #### 1 9123-9, 27704-05, #### [facility] CLIA [id number] [address] [place] [address] [place] Nucleated RBC (Bld) [#/Vol] 10*3/uL Normal <0.01 [facility] Comment on above: Order Comment: Speci men Type: BLOOD SPECIMEN [facility]: [facility] Address: [address] [place], [place] [address] Performed By: #### 1 9123-9, 2777-, 22732-9 #### [facility] CLIA [id number] [address] [place] [address] [place] Platelet mean volume (Bld) [Entitic vol] 9.2 fL Normal 9.0-12.7 [facility] Comment on above: Order Comment: Speci men Type: BLOOD SPECIMEN [facility]ing [facility]: [facility] Address: [address] [place] [address] Performed By: #### 1 9123-9, 2777-, 66559-4 #### [facility] CLIA [id number] [address] [place] [address] [place] Platelets (Bld) [#/Vol] 153 10*3/uL Normal 150-400 [facility] Comment on above: Order Comment: Speci men Type: BLOOD SPECIMEN [facility]ing [facility]: [facility] Address: [address] [place] [address] Performed By: #### 1 9123-9, 2777, 73213-2 #### [facility] CLIA [id number] [address] [place] [address] [place] RBC (Bld) [#/Vol] 4.13 10*6/uL Normal 3.90-5.20 [facility] Comment on above: Order Comment: Speci men Type: BLOOD SPECIMEN [facility]ing [facility]: [facility] Address: [address] [place], [place] [address] Performed By: #### 1 9123-9, 2777-, 35138-2 #### [facility] CLIA [id number] [address] [place] [address] [facility] [place] WBC (Bld) [#/Vol] 8.37 10*3/uL Normal 3.70-11.00 [facility] Comment on above: Order Comment: Speci men Type: BLOOD SPECIMEN [facility]ing [facility]: [facility] Address: [address] [place] [address] Performed By: #### 1 9123-9, 2777-1, 73286-5 #### [facility] CLIA [id number] [address] [place] [id number] [facility] Magnesium SerPl-mCncon 04-27 Magnesium [Mass/Vol] 2.2 mg/dL Normal 1.7-2.3 [facility] Comment on above: Order Comment: Speci men Type: BLOOD SPECIMENOrdering Facility: [facility] Address: [facility] [place] [address] Performed By: #### 2 4321-2, 89629-9, 2777-1 ####[facility] LABORATORYCLIA [id number] [address] NURSING PROGon 04-27-2022 NURSING PROG HNO ID: [id number] Author: Lauren Mejia RN Service: ? Author Type: Registered Nurse Type: Nursing Progress Note Filed: 04/27/2022 11:22 AM Note Text: Nursing Progress Note Patient Name: Swathi Valladares Patient Location: [address] __ Pt a/ox3. C/o nausea;medicated;effec tive. C/o GERD type symptoms;per pt. Dr here and aware. Continue on clear liquids. K+3.4;MG2.2 and phos.1.9; Boluses ordered and started. Pt had boluses during night;surgery aware.. Incision clean and dry. VET ASSISTANT settings changed;see MAR. Continue to monitor. This note was completed by: Lauren Mejia [facility] NURSING PROG HNO ID: [id number] Author: Basilia Jc RN Service: ? Author Type: Registered Nurse Type: Nursing Progress Note Filed: 04/26/2022 11:00 PM Note Text: Nursing Progress Note Patient Name: Swathi Valladares Patient Location: -PK3B21/FV-QX1G-12 __ Daily Note: 2034: Dressing to NEELAM insertion site saturated with bloody drainage; gauze changed at this time. 2252: Dressing to NEELAM site saturated at this time. Dressing changed and text page sent to operating room surgical technician to make aware. This note was completed by: Basilia Spencer [facility] Phosphate SerPl-mCncon 04-27 Phosphate [Mass/Vol] 1.9 mg/dL Low 2.7-4.8 [facility] Comment on above: Order Comment: Speci men Type: BLOOD SPECIMENOrdering Facility: [facility] Address: [address] [place] [address] Performed By: #### 2 4321-2, , 2776-10 ####[facility] LABORATORYCLIA [id number] [place] [address] [place] Basic metabolic 2000 panelon 04-26-2022 Anion gap [Moles/Vol] 11 mmol/L Normal 9-18 [facility] Comment on above: Order Comment: Speci men Type: BLOOD SPECIMENOrdering Facility: [facility] Address: [address] [place], [place] [phone] Performed By: #### 2 4321-2, , 2776-10 ####[facility] LABORATORYCLIA [id number] [place] [id number] [place] Calcium [Mass/Vol] 8.8 mg/dL Normal 8.5-10.2 [facility] Comment on above: Order Comment: Speci men Type: BLOOD SPECIMENOrdering Facility: [facility] Address: [address] [place], [place] [address] Performed By: #### 2 4321-2, , 2776-10 ####[facility]ORATORYCLIA [id number] [place] [id number] [place] Chloride [Moles/Vol] 99 mmol/L Normal 97-105 [facility] Comment on above: Order Comment: Speci men Type: BLOOD SPECIMENOrdering Facility: [facility] Address: [address] [place] [address] Performed By: #### 2 4321-2, 78160-7, 2777- ####[facility] LABORATORYCLIA [id number] [place] [id number] [place] CO2 [Moles/Vol] 25 mmol/L Normal 22-30 [facility] Comment on above: Order Comment: Speci men Type: BLOOD SPECIMENOrdering Facility: [facility] Address: [address] [place] [address] Performed By: #### 2 4321-2, , 2777- ####[facility] LABORATORYCLIA [id number] [address] [place] Creatinine [Mass/Vol] 0.62 mg/dL Normal 0.58-0.96 [facility] Comment on above: Order Comment: Speci men Type: BLOOD SPECIMENOrdering Facility: [facility] Address: [address] [place] [address] Performed By: #### 2 4321-2, , 2777 ####[facility] LABORATORYCLIA [id number] [place] [id number] [place] ESTIMATED GLOMERULAR FILTRATION RATE 98 mL/min/1.73m??? Normal >=60 [facility] Comment on above: Order Comment: Speci men Type: BLOOD SPECIMENOrdering Facility: [facility] Address: [address] [place] [address] Result Comment: Fatmata mated Glomerular Filtration Rate (eGFR) is calculated using the 2020 CKD-EPI creatinine equation. This equation utilizes serum creatinine, sex, and age as parameters. The creatinine assay has traceable calibration to isotope dilution-mass spectrometry. Refer to KDIGO guidelines for clinical interpretation. In patients with unstable renal function, e.g. those with acute kidney injury, the eGFR may not accurately reflect actual GFR. Performed By: #### 2 4321-2, , 2776-10 ####[facility] LABORATORYCLIA [id number] [place] [id number] [place] Glucose [Mass/Vol] 110 mg/dL High 74-99 [facility] Comment on above: Order Comment: Shamar brothers Type: BLOOD SPECIMENOrdering Facility: [facility] Address: [address] [place], [place] [address] Result Comment: The [place] Diabetes Association (ADA) provides guidance for cutoff values for fasting glucose and random glucose. The ADA defines fasting as no caloric intake for at least 8 hours. Fasting plasma glucose results between 100 to 125 mg/dL indicate increased risk for diabetes (prediabetes). Fasting plasma glucose results greater than or equal to 126 mg/dL meet the criteria for diagnosis of diabetes. In the absence of unequivocal hyperglycemia, results should be confirmed by repeat testing. In a patient with classic symptoms of hyperglycemia or hyperglycemic crisis, random plasma glucose results greater than or equal to 200 mg/dL meet the criteria for diagnosis of diabetes. Reference: Standards of Medical Care in Diabetes 2016, [place] Diabetes Association. Diabetes Care. 2016.39(Suppl 1). Performed By: #### 2 4321-2, , 2776-10 ####[facility] LABORATORYCLIA [id number] [place] [address] [place] Potassium [Moles/Vol] 3.5 mmol/L Low 3.7-5.1 [facility] Comment on above: Order Comment: Shamar brothers Type: BLOOD SPECIMENOrdering Facility: [facility] Address: [address] [place] [address] Performed By: #### 2 4321-2, , 2776-10 ####[facility] LABORATORYCLIA [id number] [place] [address] [place] Sodium [Moles/Vol] 135 mmol/L Low 136-144 [facility] Comment on above: Order Comment: Shamar brothers Type: BLOOD SPECIMENOrdering Facility: [facility] Address: [address] [place] [phone] Performed By: #### 2 4321-2, 25679-7, 2777-1 ####[facility] LABORATORYCLIA [id number] [place] [id number] [place] Urea nitrogen [Mass/Vol] 12 mg/dL Normal 04-25 [facility] Comment on above: Order Comment: Speci men Type: BLOOD SPECIMENOrdering Facility: [facility] Address: [address] [place] [address] Performed By: #### 2 4321-2, 06529-2, 2777- ####[facility] LABORATORYCLIA [id number] [place] [id number] [facility] OF [place] CASE MANAGEMon 04-26-2022 CASE MANAGEM HNO ID: [id number] Author: ROC Oconnell Service: ? Author Type: Tobacco Sampler Type: Care Mgt Progress Note Filed: 04/26/2022 4:34 PM Note Text: CARE MANAGEMENT PROGRESS NOTE SERVICE DATE: 04/26/2022 SERVICE TIME: 4:30 LOS: 2 days .SW met with patient and daughter. Patient declines home therapy. No skilled needs when discharged. Weekend Worker [place] [phone] SIGNATURE: ROC Oconnell PATIENT NAME: Swathi Valladares DATE: April 26, 2022 TIME: 4:33 PM PAGER/CONTACT #: [phone] Normal [facility] CBC W Auto Differential pane l (Bld)on 04-26-2022 Basophils (Bld) [#/Vol] 10*3/uL Normal <0.11 [facility] Comment on above: Order Comment: Speci men Type: BLOOD SPECIMEN [facility] Address: [address] [place] [address] Performed By: #### 5 7021-8 #### [facility] CLIA [id number] [place] Basophils/100 WBC (Bld) 0.1 % Normal [facility] Comment on above: Order Comment: Speci men Type: BLOOD SPECIMEN [facility]ing Facility: [facility] Address: [address] [place] [address] Performed By: #### 5 7021-8 #### [facility] CLIA [id number] [address] [place] [address] [place] Differential cell count method Nom (Bld) Auto Normal [facility] Comment on above: Order Comment: Speci men Type: BLOOD SPECIMEN [facility]ing [facility]: [facility] Address: [address] [place] [address] Performed By: #### 5 7021-8 #### [facility] CLIA [id number] [address] [place] [address] [place] Eosinophils (Bld) [#/Vol] 10*3/uL Normal <0.46 [facility] Comment on above: Order Comment: Speci men Type: BLOOD SPECIMEN [facility]ing [facility]: [facility] Address: [address] [place] [address] Performed By: #### 5 7021-8 #### [facility] CLIA [id number] [address] [place] [address] [place] Eosinophils/100 WBC (Bld) 0.0 % Normal [facility] Comment on above: Order Comment: Speci men Type: BLOOD SPECIMEN Ordering Facility: [facility] Address: [address] [place] [address] Performed By: #### 5 7021-8 #### [facility] CLIA [id number] [address] [place] [address] [place] Erythrocyte distribution width (RBC) [Ratio] 13.0 % Normal 11.5-15.0 [facility] Comment on above: Order Comment: Speci men Type: BLOOD SPECIMEN Ordering Facility: [facility] Address: [address] [place] [address] Performed By: #### 5 7021-8 #### [facility] CLIA [id number] [address] [place] [address] [place] Hematocrit (Bld) [Volume fraction] 35.3 % Low 36.0-46.0 [facility] Comment on above: Order Comment: Speci men Type: BLOOD SPECIMEN Ordering Facility: [facility] Address: [address] [place] [address] Performed By: #### 5 7021-8 #### [facility] CLIA [id number] [address] [place] [address] [place] Hemoglobin (Bld) [Mass/Vol] 11.4 g/dL Low 11.5-15.5 [facility] Comment on above: Order Comment: Speci men Type: BLOOD SPECIMEN Ordering Facility: [facility] Address: [address] [place] [address] Performed By: #### 5 7021-8 #### [facility] CLIA [id number] [address] [place] [address] [place] IMMATURE GRAN % 0.5 % Normal [facility] Comment on above: Order Comment: Speci men Type: BLOOD SPECIMEN Ordering Facility: [facility] Address: [address] [place] [address] Performed By: #### 5 7021-8 #### [facility] CLIA [id number] [address] [place] [address] [place] IMMATURE GRAN ABS 0.05 k/uL Normal <0.10 [facility] Comment on above: Order Comment: Speci men Type: BLOOD SPECIMEN Ordering Facility: [facility] Address: [address] [place] [address] Performed By: #### 5 7021-8 #### [facility] CLIA [id number] [address] [place] [address] [place] Lymphocytes (Bld) [#/Vol] 0.59 10*3/uL Low 1.00-4.00 [facility] Comment on above: Order Comment: Speci men Type: BLOOD SPECIMEN Ordering Facility: [facility] Address: [address] [place] [address] Performed By: #### 5 7021-8 #### [facility] CLIA [id number] [address] [place] [address] [place] Lymphocytes/100 WBC (Bld) 6.3 % Normal [facility] Comment on above: Order Comment: Speci men Type: BLOOD SPECIMEN Ordering Facility: [facility] Address: [address] [place] [address] Performed By: #### 5 7021-8 #### [facility] CLIA [id number] [address] [place] [address] STATES [facility] MCH (RBC) [Entitic mass] 30.3 pg Normal 26.0-34.0 [facility] Comment on above: Order Comment: Speci men Type: BLOOD SPECIMEN Ordering Facility: [facility] Address: [address] [place] [address] Performed By: #### 5 7021-8 #### [facility] CLIA [id number] [address] [place] [address] [place] MCHC (RBC) [Mass/Vol] 32.3 g/dL Normal 30.5-36.0 [facility] Comment on above: Order Comment: Speci men Type: BLOOD SPECIMEN Ordering Facility: [facility] Address: [address] [place] [address] Performed By: #### 5 7021-8 #### [facility] CLIA [id number] [address] [place] [address] [place] MCV (RBC) [Entitic vol] 93.9 fL Normal 80.0-100.0 [facility] Comment on above: Order Comment: Speci men Type: BLOOD SPECIMEN Ordering Facility: [facility] Address: [address] [place] [address] Performed By: #### 5 7021-8 #### [facility] CLIA [id number] [address] [place] [address] [place] Monocytes (Bld) [#/Vol] 0.66 10*3/uL Normal <0.87 [facility] Comment on above: Order Comment: Speci men Type: BLOOD SPECIMEN Ordering Facility: [facility] Address: [address] [place] [address] Performed By: #### 5 7021-8 #### [facility] CLIA [id number] [address] [place] [address] [place] Monocytes/100 WBC (Bld) 7.0 % Normal [facility] Comment on above: Order Comment: Speci men Type: BLOOD SPECIMEN Ordering Facility: [facility] Address: [address] [place] [address] Performed By: #### 5 7021-8 #### [facility] CLIA [id number] [address] [place] [address] [place] Neutrophils (Bld) [#/Vol] 8.10 10*3/uL High 1.45-7.50 [facility] Comment on above: Order Comment: Speci men Type: BLOOD SPECIMEN Ordering Facility: [facility] Address: [address] [place] [address] Performed By: #### 5 7021-8 #### [facility] CLIA [id number] [address] [place] [address] [place] Neutrophils/100 WBC (Bld) 86.1 % Normal [facility] Comment on above: Order Comment: Speci men Type: BLOOD SPECIMEN Ordering Facility: [facility] Address: [address] [place] [address] Performed By: #### 5 7021-8 #### [facility] CLIA [id number] [address] [place] [address] [place] Nucleated RBC (Bld) [#/Vol] 10*3/uL Normal <0.01 [facility] Comment on above: Order Comment: Speci men Type: BLOOD SPECIMEN Ordering Facility: [facility] Address: [address] [place] [address] Performed By: #### 5 7021-8 #### [facility] CLIA [id number] [address] [place] [address] [place] Nucleated RBC/100 WBC (Bld) [Ratio] 0.0 /100 WBC Normal [facility] Comment on above: Order Comment: Speci men Type: BLOOD SPECIMEN Ordering Facility: [facility] Address: [address] [place] [address] Performed By: #### 5 7021-8 #### [facility] CLIA [id number] [address] [place] [address] [place] Platelet mean volume (Bld) [Entitic vol] 8.9 fL Low 9.0-12.7 [facility] Comment on above: Order Comment: Speci men Type: BLOOD SPECIMEN Ordering Facility: [facility] Address: [address] [place] [address] Performed By: #### 5 7021-8 #### [facility] CLIA [id number] [address] [place] [address] [place] Platelets (Bld) [#/Vol] 163 10*3/uL Normal 150-400 [facility] Comment on above: Order Comment: Speci men Type: BLOOD SPECIMEN Ordering Facility: [facility] Address: [address] [place] [address] Performed By: #### 5 7021-8 #### [facility] CLIA [id number] [address] [place] [address] [place] RBC (Bld) [#/Vol] 3.76 10*6/uL Low 3.90-5.20 [facility] Comment on above: Order Comment: Speci men Type: BLOOD SPECIMEN Ordering Facility: [facility] Address: [address] [place] [address] Performed By: #### 5 7021-8 #### [facility] CLIA [id number] [address] [place] [address] [place] WBC (Bld) [#/Vol] 9.41 10*3/uL Normal 3.70-11.00 [facility] Comment on above: Order Comment: Speci men Type: BLOOD SPECIMEN Ordering Facility: [facility] Address: [address] [place] [address] Performed By: #### 5 7021-8 #### [facility] CLIA [id number] [address] [place] [address] [place] Magnesium SerPl-mCncon 04-26 Magnesium [Mass/Vol] 1.7 mg/dL Normal 1.7-2.3 [facility] Comment on above: Order Comment: Speci men Type: BLOOD SPECIMENOrdering Facility: [facility] Address: [address] [place], [place] [id number] Performed By: #### 2 4321-2, , 27704-05 ####[facility] [id number] [address] OF [place] NURSING PROGon 04-26-2022 NURSING PROG HNO ID: [id number] Author: Tay Jeffrey RN Service: Nursing Author Type: Registered Nurse Type: Nursing Progress Note Filed: 04/26/2022 6:59 AM Note Text: Nursing Progress Note Patient Name: Swathi Valladares Patient Location: [id number] __ Daily Note: 0620- Paged surgery to come see pt, she says she is not feeling well, feels drag as she is having a panic attack, shaky , BP 159/97, pulse 116, blood glucose 115, on 2L 93%, desats on room air down to 88%. 0645-surgery team at bedside, aware. This note was completed by: Tay Jeffrey Normal [facility] Phosphate SerPl-mCncon 04-26 Phosphate [Mass/Vol] 2.2 mg/dL Low 2.7-4.8 [facility] Comment on above: Order Comment: Speci men Type: BLOOD SPECIMENOrdering Facility: [facility] Address: [address] [place], [place] [id number] Performed By: #### 2 4321-2, , 2776-10 ####[facility] [id number] [place] [id number] [facility] OF [place] THERAPY NTon 04-26-2022 THERAPY NT HNO ID: [id number] Author: WAYNE Hilario/Ursula Service: Occupational Therapy Author Type: Occupational Therapist Type: Therapy (PT/OT/Speech/Resp) Filed: 04/26/2022 1:09 PM Note Text: Occupational Therapy Treatment SERVICE DATE: 04/26/2022 SERVICE TIME: 1248 to 1300 ROOM: [place] [address] Recommended Discharge Disposition: Home OT Anticipated Discharge Needs: Physical Assist at Home;Equipment Physical Assist at Home for: Transportation;Shoppin g;Cleaning;Laundry;Sirisha ls Recommended Discharge Equipment: Grab Bars-Shower;Grab Bars-Toilet;Hand Held Shower;Lumber Handler;Shower Chair OT 6 Clicks Score: 23 Precautions/Activity Restrictions: Fall Risk;Lines/Tubes/Drain s;Abdominal Current Hospital Course: s/p laparoscopic gastric tumor resection Reason for Hospital Admission: 66 y/o F admitted with large gastric mass, s/p exploratory laparotomy, resection of gastric tumor with distal gastrectomy Relevant Past Medical History: CHF, chronic cough, diverticulitis, TAVR, GERD, CVA, CPOD, lupus Response to Therapy Interventions: Good participation in activities Occupational Therapy Problem List: Impaired Self Care;Decreased Activity Tolerance;Functional Mobility Impairment;Balance Impaired Cognition/Communicatio n Deficits Responsiveness: Alert, Awake Follows Commands: 3-step Commands Treatment Interventions: Education;Self Care / Home Management;Energy Conservation Training;Joint Mobility;Strengthening ;Functional Mobility Training;Balance Training Home Environment Patient Lives With: Family (lives with 2 grandchildren) Assistance Available: PRN Entry To Home: Stairs;With Rail Number Of Stairs Into Home: 3 Number Of Stairs To Bed/Bath: one floor set up Tub/Shower Type: has both tub and shower, uses walk in shower Laundry: in basement. 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 Patient Report: I am a little better today CURRENT FUNCTIONAL STATUS: Most recent performance Current Activities of Daily Living Assist Level Additional Information Feeding Modified Independent Grooming Stand By Assistance;Additional Information in standing Bathing Upper Body Stand By Assistance Bathing Lower Body Contact Guard Assistance Dressing Upper Body Modified Independent Dressing Lower Body Stand By Assistance Toileting Stand By Assistance Instrumental Activities of Daily Living Assist Level Additional Information Meal/Beverage Prep Cleaning Laundry Medication Management with Strategies Functional Mobility Assist Level Additional Information Rolling Supine to Sit Modified Independent Sit to Supine Modified Independent Scooting Set Up Sit to Stand Supervision Stand to Sit Supervision Bed to Chair Toilet/Commode Shower Functional Mobility Supervision Wheeled Walker Blank patel indicate activity not attempted Balance: Static Sitting;Dynamic Sitting;Static Standing;Dynamic Standing Static Sitting Balance: Normal Patient able to maintain steady balance without handhold support Dynamic Sitting Balance: Normal Patient accepts maximal challenge and can shift weight easily within full range in all directions Static Standing Balance: Good Patient able to maintain balance without handhold support, limited postural sway Dynamic Standing Balance: Fair Patient accepts minimal challenge, able to maintain balance while turning head/trunk Learning/Educational Needs: Discharge Plan;Family Education/Training;Equ ipment;Functional Activities/Mobility;Pl an of Care;Precautions;Rehab ilitation Techniques and Procedures;Safety;Self Care Goals for Plan of Care: Patient /Caregiver Goals: Go Home Goals: Patient will demonstrate progress with self-care, cognitive and/or coping needs identified to allow safe discharge to home with available support and/or physical assistance. Progress Toward Goals: Progressing as expected Rehab Potential: Good Patient will be discontinued from Occupational Therapy when no further skilled needs are identified in this setting. PLAN: OT Frequency: 2 times per week (+1 PRN visit) Plan of Care developed with: Patient TREATMENT INTERVENTIONS: Therapy Diagnosis: Reduced mobility-other;Decreas ed activities of daily living (ADL) Interventions Provided: Self Snf Management (61295) Self Snf Management (89713) Treatment Minutes: 12 $ Self Snf Management (27029) Billed Units: 1 unit Training AND education provided in: Activity adaption / compensatory strategies, Adaptive equipment / DME, Assistive device use, Bed mobility, Benefits of in-hospital mobility, Energy conservation, Grooming tasks, Lower extremity dressing, Role of Occupational Therapy, Sitting balance to improve independence with ADLs/self-care, Standing (more content not included)... Normal [facility] THERAPY NT HNO ID: [id number] Author: Matthieu Ashraf PT Service: Physical Therapy Author Type: Physical Therapist Type: Therapy (PT/OT/Speech/Resp) Filed: 04/26/2022 12:14 PM Note Text: Physical Therapy Treatment SERVICE DATE: 04/26/2022 SERVICE TIME: 1003 to 1019 ROOM: [place] [address] Recommended Discharge Disposition: Home PT Recommended Discharge Disposition Comments: Patient will benefit from home PT upon discharge for continued strengthening and improvement in activity tolerance for return to baseline function Anticipated Discharge Needs: Physical Assist at Home;Equipment Physical Assist at Home for: Transportation;Shoppin g;Cleaning;Laundry;Sirisha ls Recommended Discharge Equipment: Shower Chair PT 6 Clicks Score: 21 Precautions/Activity Restrictions: Fall Risk;Lines/Tubes/Drain s;Abdominal Current Hospital Course: s/p laparoscopic gastric tumor resection Reason for Hospital Admission: 66 y/o F admitted with large gastric mass, s/p exploratory laparotomy, resection of gastric tumor with distal gastrectomy Relevant Past Medical History: CHF, chronic cough, diverticulitis, TAVR, GERD, CVA, CPOD, lupus Response to Therapy Interventions: Good participation in activities, Pain, Low activity tolerance Assessment Comments: Patient demonstrating mostly SBA functional mobility with activity tolerance being limited primarily due to nausea. Patient nauseous sitting EOB or 3 min waiting for it to subside. Patient ambulated to chair SBA where nausea increased once again. PT provided wet cloth to forehead and notified RN of patients complaint. Continue skilled needs due to: Functional mobility/skill impairments Physical Therapy Problem List: Decreased Activity Tolerance;Pain;Functio nal Mobility Impairment Treatment Interventions: Education;Strengthenin g;Functional Mobility Training;Balance Training;Neuromuscular Re-education;Pain Management Plan for next visit: Gait training, Pre-gait activities, Sit to Stand Transfers, Stairs training, Standing Balance, Standing Tolerance, Walker Training Home Environment Patient Lives With: Family (lives with 2 grandchildren) Assistance Available: PRN Entry To Home: Stairs;With Rail Number Of Stairs Into Home: 3 Number Of Stairs To Bed/Bath: one floor set up Tub/Shower Type: has both tub and shower, uses walk in shower Laundry: in basement. 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 CURRENT FUNCTIONAL STATUS: Most recent performance Current Functional Mobility Assist Level Additional Information Rolling Stand By Assistance Supine to Sit Stand By Assistance Sit to Supine Scooting Stand By Assistance Sit to Stand Contact Guard Assistance Stand to Sit Contact Guard Assistance Bed to Chair Toilet/Commode Gait Stand By Assistance Gait Device: Wheeled Walker Gait Distance (feet): 5 ft to chair Stairs Curb Step Car Transfer Blank patel indicate activity not attempted General Deviations/Observation s: Lizbet decreased;Flexed trunk posture;Step length decreased Balance: Static Sitting;Dynamic Sitting;Static Standing;Dynamic Standing Static Sitting Balance: Normal Patient able to maintain steady balance without handhold support Dynamic Sitting Balance: Good Patient accepts moderate challenge, able to maintain balance while picking up object off floor Static Standing Balance: Good Patient able to maintain balance without handhold support, limited postural sway Dynamic Standing Balance: Fair Patient accepts minimal challenge, able to maintain balance while turning head/trunk -HLM: 4: Move to chair / commode Learning/Educational Needs: Discharge Plan;Functional Activities/Mobility;Pa in Management;Plan of Care;Precautions;Rehab ilitation Techniques and Procedures;Safety Goals for Plan of Care: Patient /Caregiver Goals: Go Home Goals: Patient will demonstrate progress with functional mobility to allow safe discharge to home with available support and/or physical assistance. Transfer sit to/from stand with: Stand By Assistance Ambulate with: Stand By Assistance Distance: 100 ft Device: Wheeled Walker Ambulate up and down steps with: Stand By Assistance Number of steps: 3 Device: Rail Progress Toward Goals: Progressing as expected Rehab Potential: Good Patient will be discontinued from Physical Therapy when no further skilled needs are identified in this setting. PLAN: PT Frequency: 3 times per week Plan of Care developed with: Patient;Family TREATMENT INTERVENTIONS: Therapy Diagnosis: Reduced mobility-other Interventions Provided: Therapeutic Activity (24165) Therapeutic Activity (53698) Treatment Minutes: 16 $ Therapeutic Activity (24010) (more content not included)... Normal [facility] Basic metabolic 2000 panelon 04-25-2022 Anion gap [Moles/Vol] 10 mmol/L Normal 9-18 [facility] Comment on above: Order Comment: Speci men Type: BLOOD SPECIMEN Ordering Facility: [facility] Address: [address] [place] [address] Performed By: #### 1 9123-9, 2777-1, 65881-4 #### [facility] CLIA [id number] [place] [address] [place] Calcium [Mass/Vol] 8.8 mg/dL Normal 8.5-10.2 [facility] Comment on above: Order Comment: Speci men Type: BLOOD SPECIMEN Ordering Facility: [facility] Address: [address] [place] [address] Performed By: #### 1 9123-9, 2776-10, 91444-0 #### [facility] CLIA [id number] [address] [place] [address] [place] Chloride [Moles/Vol] 102 mmol/L Normal 97-105 [facility] Comment on above: Order Comment: Speci men Type: BLOOD SPECIMEN Ordering Facility: [facility] Address: [address] [place] [address] Performed By: #### 1 9123-9, 2776-10, #### [facility] CLIA [id number] [address] [place] [address] [place] CO2 [Moles/Vol] 23 mmol/L Normal 22-30 [facility] Comment on above: Order Comment: Speci men Type: BLOOD SPECIMEN Ordering Facility: [facility] Address: [address] [place] [address] Performed By: #### 1 9123-9, 2776-10, #### [facility] CLIA [id number] [address] [place] [address] [place] Creatinine [Mass/Vol] 0.67 mg/dL Normal 0.58-0.96 [facility] Comment on above: Order Comment: Speci men Type: BLOOD SPECIMEN Ordering Facility: [facility] Address: [address] [place] [address] Performed By: #### 1 9123-9, 27704-05, 82048-0 #### [facility] CLIA [id number] [address] [place] [address] [place] ESTIMATED GLOMERULAR FILTRATION RATE 97 mL/min/1.73m??? Normal >=60 [facility] Comment on above: Order Comment: Speci men Type: BLOOD SPECIMEN Ordering Facility: [facility] Address: [address] [place] [address] Result Comment: Fatmata mated Glomerular Filtration Rate (eGFR) is calculated using the 2020 CKD-EPI creatinine equation. This equation utilizes serum creatinine, sex, and age as parameters. The creatinine assay has traceable calibration to isotope dilution-mass spectrometry. Refer to KDIGO guidelines for clinical interpretation. In patients with unstable renal function, e.g. those with acute kidney injury, the eGFR may not accurately reflect actual GFR. Performed By: #### 1 9123-9, 2777-1, 29598-9 #### [facility] CLIA [id number] [address] [place] [address] [place] Glucose [Mass/Vol] 105 mg/dL High 74-99 [facility] Comment on above: Order Comment: Shamar brothers Type: BLOOD SPECIMEN Ordering Facility: [facility] Address: [address] [place] [address] Result Comment: The [place] Diabetes Association (ADA) provides guidance for cutoff values for fasting glucose and random glucose. The ADA defines fasting as no caloric intake for at least 8 hours. Fasting plasma glucose results between 100 to 125 mg/dL indicate increased risk for diabetes (prediabetes). Fasting plasma glucose results greater than or equal to 126 mg/dL meet the criteria for diagnosis of diabetes. In the absence of unequivocal hyperglycemia, results should be confirmed by repeat testing. In a patient with classic symptoms of hyperglycemia or hyperglycemic crisis, random plasma glucose results greater than or equal to 200 mg/dL meet the criteria for diagnosis of diabetes. Reference: Standards of Medical Care in Diabetes 2016, [place] Diabetes Association. Diabetes Care. 2016.39(Suppl 1). Performed By: #### 1 9123-9, 2777-, 56662-1 #### [facility] CLIA [id number] [place] [address] [place] Potassium [Moles/Vol] 3.7 mmol/L Normal 3.7-5.1 [facility] Comment on above: Order Comment: Shamar brothers Type: BLOOD SPECIMEN Ordering Facility: [facility] Address: [address] [place], [place] [address] Performed By: #### 1 9123-9, 2777-1, 07945-6 #### [facility] CLIA [id number] [address] [place] [address] [place] Sodium [Moles/Vol] 135 mmol/L Low 136-144 [facility] Comment on above: Order Comment: Shamar brothers Type: BLOOD SPECIMEN Ordering Facility: [facility] Address: [address] [place], [place] [address] Performed By: #### 1 9123-9, 2777-1, 63331-7 #### [facility] CLIA [id number] [place], [place] [address] [place] Urea nitrogen [Mass/Vol] 10 mg/dL Normal 04-25 [facility] Comment on above: Order Comment: Speci men Type: BLOOD SPECIMEN Ordering Facility: [facility] Address: [address] [place], [place] [phone] Performed By: #### 1 9123-9, 2777-1, 52675-7 #### [facility] CLIA [id number] [place] [address] [place] CASE MGT INIT ASSESon 2021 CASE MGT INIT ASSES HNO ID: [id number] Author: ROC Oconnell Service: ? Author Type: Tobacco Sampler Type: Care Mgt Initial Assessment Filed: 04/25/2022 4:33 PM Note Text: CARE MANAGEMENT: ASSESSMENT AND DISCHARGE PLAN SERVICE DATE: April 25, 2022 SERVICE TIME: 2:15 PRIMARY CARE PHYSICIAN: Vivi Liao MD Primary Contact: Extended Emergency Contact Information Primary Emergency Contact: Reyna Jackson Mobile Relation: Daughter Secondary Emergency Contact: Cory Valladares Mobile Relation: Son ADMISSION STATUS: Inpatient Insurance Provider: MEDICARE A AND B NEEDS PRIOR TO DISCHARGE Needs Prior to Discharge: To Be Determined POTENTIAL TRANSITION PLANS Home OT/PT Based on clinical judgement, Care Management will address the following needs: No transitional/discharge planning needs at this time Patient's perception of need for this admission: to have surgery ADVANCE DIRECTIVES Current Advance Directive: Health Care Power of Solar Sales Advisor In Chart: No MS/BEHAVIOR Baseline Mental Status Prior to this Illness what was the patient's Baseline Mental Status?: Alert AND Oriented Prior to this illness, has anyone described the patient having any of the following behaviors?: Not Applicable Relationship of the informant to the patient:: Self READMISSION Last Discharge Date: 11/29/21 Is this Within the Past 30 days? 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 scores in the EMR?: No Any potential risks related to substance abuse and/or behavioral health?: No Based on clinical judgement, Care Management will address the following needs: No transitional/discharge planning needs at this time CAREGIVER ASSESSMENT Caregiver is ready, willing and able to meet the patient's needs as recommended by the inter-professional team:: No Caregiver needed Patient's transition needs and plan for meeting these needs: NA No medical discharge barriers identified at this time. No social discharge barriers identified at this time. No behavioral/cognitive discharge barriers identified at this time. No functional discharge barriers identified at this time. FREEDOM OF CHOICE EXPLAINED: [place] of Choice Given: No Reason Not Given: Unable to complete with this assessment - revisit Are you interested in bedside delivery of your medications? Yes ASSESSMENT AND PLAN: Patient was sleeping, SW spoke with her daughter at bedside. Patient is independent and her grandsons live with her. 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 No skilled needs anticipated. SIGNATURE: ROC Oconnell PATIENT NAME: Swathi Valladares DATE: April 25, 2022 TIME: 4:31 PM CONTACT #: [phone] Normal [facility] CBC W Auto Differential pane l (Bld)on 04-25-2022 Basophils (Bld) [#/Vol] 10*3/uL Normal <0.11 [facility] Comment on above: Order Comment: Speci men Type: BLOOD SPECIMEN Ordering Facility: [facility] Address: [address] [address] Performed By: #### 5 7021-8 #### [facility] CLIA [id number] [address] [place] [address] [place] Basophils/100 WBC (Bld) 0.0 % Normal [facility] Comment on above: Order Comment: Speci men Type: BLOOD SPECIMEN Ordering Facility: [facility] Address: [address] [place] [address] Performed By: #### 5 7021-8 #### [facility] CLIA [id number] [address] [place] [address] [place] Differential cell count method Nom (Bld) Auto Normal [facility] Comment on above: Order Comment: Speci men Type: BLOOD SPECIMEN Ordering Facility: [facility] Address: [address] [place] [address] Performed By: #### 5 7021-8 #### [facility] CLIA [id number] [address] [place] [address] [place] Eosinophils (Bld) [#/Vol] 10*3/uL Normal <0.46 [facility] Comment on above: Order Comment: Speci men Type: BLOOD SPECIMEN Ordering Facility: [facility] Address: [address] [place] [address] Performed By: #### 5 7021-8 #### [facility] CLIA [id number] [address] [place] [address] [place] Eosinophils/100 WBC (Bld) 0.0 % Normal [facility] Comment on above: Order Comment: Speci men Type: BLOOD SPECIMEN Ordering Facility: [facility] Address: [address] [place] [address] Performed By: #### 5 7021-8 #### [facility] CLIA [id number] [address] [place] [address] [place] Erythrocyte distribution width (RBC) [Ratio] 12.9 % Normal 11.5-15.0 [facility] Comment on above: Order Comment: Speci men Type: BLOOD SPECIMEN Ordering Facility: [facility] Address: [address] [place], [place] [phone] Performed By: #### 5 7021-8 #### [facility] CLIA [id number] [address] [place] [address] [place] Hematocrit (Bld) [Volume fraction] 35.6 % Low 36.0-46.0 [facility] Comment on above: Order Comment: Speci men Type: BLOOD SPECIMEN Ordering Facility: [facility] Address: [address] [place] [address] Performed By: #### 5 7021-8 #### [facility] CLIA [id number] [address] [place] [address] [place] Hemoglobin (Bld) [Mass/Vol] 11.5 g/dL Normal 11.5-15.5 [facility] Comment on above: Order Comment: Speci men Type: BLOOD SPECIMEN Ordering Facility: [facility] Address: [address] [place] [address] Performed By: #### 5 7021-8 #### [facility] CLIA [id number] [address] [place] [address] [place] IMMATURE GRAN % 0.4 % Normal [facility] Comment on above: Order Comment: Speci men Type: BLOOD SPECIMEN Ordering Facility: [facility] Address: [address] [place] [address] Performed By: #### 5 7021-8 #### [facility] CLIA [id number] [address] [place] [address] [place] IMMATURE GRAN ABS 0.03 k/uL Normal <0.10 [facility] Comment on above: Order Comment: Speci men Type: BLOOD SPECIMEN Ordering Facility: [facility] Address: [address] [place] [address] Performed By: #### 5 7021-8 #### [facility] CLIA [id number] [address] [place] [address] [place] Lymphocytes (Bld) [#/Vol] 0.64 10*3/uL Low 1.00-4.00 [facility] Comment on above: Order Comment: Speci men Type: BLOOD SPECIMEN Ordering Facility: [facility] Address: [address] [place] [address] Performed By: #### 5 7021-8 #### [facility] CLIA [id number] [address] [place] [address] [place] [facility] Lymphocytes/100 WBC (Bld) 7.5 % Normal [facility] Comment on above: Order Comment: Speci men Type: BLOOD SPECIMEN Ordering Facility: [facility] Address: [address] [place] [address] Performed By: #### 5 7021-8 #### [facility] CLIA [id number] [address] [place] [address] [place] MCH (RBC) [Entitic mass] 30.5 pg Normal 26.0-34.0 [facility] Comment on above: Order Comment: Speci men Type: BLOOD SPECIMEN Ordering Facility: [facility] Address: [address] [place] [address] Performed By: #### 5 7021-8 #### [facility] CLIA [id number] [address] [place] [address] [place] MCHC (RBC) [Mass/Vol] 32.3 g/dL Normal 30.5-36.0 [facility] Comment on above: Order Comment: Speci men Type: BLOOD SPECIMEN Ordering Facility: [facility] Address: [address] [place] [address] Performed By: #### 5 7021-8 #### [facility] CLIA [id number] [address] [place] [address] [place] [facility] MCV (RBC) [Entitic vol] 94.4 fL Normal 80.0-100.0 [facility] Comment on above: Order Comment: Speci men Type: BLOOD SPECIMEN Ordering Facility: [facility] Address: [address] [place] [address] Performed By: #### 5 7021-8 #### [facility] CLIA [id number] [address] [place] [address] [place] Monocytes (Bld) [#/Vol] 0.80 10*3/uL Normal <0.87 [facility] Comment on above: Order Comment: Speci men Type: BLOOD SPECIMEN Ordering Facility: [facility] Address: [address] [place] [address] Performed By: #### 5 7021-8 #### [facility] CLIA [id number] [address] [place] [address] [place] Monocytes/100 WBC (Bld) 9.4 % Normal [facility] Comment on above: Order Comment: Speci men Type: BLOOD SPECIMEN Ordering Facility: [facility] Address: [address] [place] [address] Performed By: #### 5 7021-8 #### [facility] CLIA [id number] [address] [place] [address] [place] Neutrophils (Bld) [#/Vol] 7.08 10*3/uL Normal 1.45-7.50 [facility] Comment on above: Order Comment: Speci men Type: BLOOD SPECIMEN Ordering Facility: [facility] Address: [address] [place] [address] Performed By: #### 5 7021-8 #### [facility] CLIA [id number] [address] [place] [address] [place] Neutrophils/100 WBC (Bld) 82.7 % Normal [facility] Comment on above: Order Comment: Speci men Type: BLOOD SPECIMEN Ordering Facility: [facility] Address: [address] [place] [address] Performed By: #### 5 7021-8 #### [facility] CLIA [id number] [address] [place] [address] [place] Nucleated RBC (Bld) [#/Vol] 10*3/uL Normal <0.01 [facility] Comment on above: Order Comment: Speci men Type: BLOOD SPECIMEN Ordering Facility: [facility] Address: [address] [place] [address] Performed By: #### 5 7021-8 #### [facility] CLIA [id number] [address] [place] [address] [place] Nucleated RBC/100 WBC (Bld) [Ratio] 0.0 /100 WBC Normal [facility] Comment on above: Order Comment: Speci men Type: BLOOD SPECIMEN Ordering Facility: [facility] Address: [address] [place] [address] Performed By: #### 5 7021-8 #### [facility] CLIA [id number] [address] [place] [address] [place] Platelet mean volume (Bld) [Entitic vol] 10.1 fL Normal 9.0-12.7 [facility] Comment on above: Order Comment: Speci men Type: BLOOD SPECIMEN Ordering Facility: [facility] Address: [address] [place] [address] Performed By: #### 5 7021-8 #### [facility] CLIA [id number] [address] [place] [address] [place] Platelets (Bld) [#/Vol] 174 10*3/uL Normal 150-400 [facility] Comment on above: Order Comment: Speci men Type: BLOOD SPECIMEN Ordering Facility: [facility] Address: [address] [place] [address] Result Comment: Resu lts checked and verified. No clot detected Performed By: #### 5 7021-8 #### [facility] CLIA [id number] [address] [place] [address] [place] RBC (Bld) [#/Vol] 3.77 10*6/uL Low 3.90-5.20 [facility] Comment on above: Order Comment: Speci men Type: BLOOD SPECIMEN Ordering Facility: [facility] Address: [address] [place] [address] Performed By: #### 5 7021-8 #### [facility] CLIA [id number] [address] [place] [address] [place] WBC (Bld) [#/Vol] 8.55 10*3/uL Normal 3.70-11.00 [facility] Comment on above: Order Comment: Speci men Type: BLOOD SPECIMEN Ordering Facility: [facility] Address: [address] [place] [id number] Performed By: #### 5 7021-8 #### [facility] CLIA [id number] [address] [place] [address] [place] Magnesium SerPl-mCncon 04-25 Magnesium [Mass/Vol] 1.6 mg/dL Low 1.7-2.3 [facility] Comment on above: Order Comment: Speci men Type: BLOOD SPECIMEN Ordering Facility: [facility] Address: [address] [id number] Performed By: #### 1 9123-9, 2777-1, 71987-8 #### [facility] CLIA [id number] [place] [address] [place] NURSING PROGon 04-25-2022 NURSING PROG HNO ID: [id number] Author: Tay Jeffrey RN Service: Nursing Author Type: Registered Nurse Type: Nursing Progress Note Filed: 04/25/2022 12:37 AM Note Text: Nursing Progress Note Patient Name: Swathi Valladares Patient Location: [address] __ Daily Note: 2030-Medicated pt with Zofran for nausea, using Dilaudid VET ASSISTANT for pain control. Initial post op dressing intact w/ some shadowing, NEELAM draining bloody, Dai in place w/ c/y urine. Pt not passing flatus/BM yet. 2340- paged surgery to clarify NG tube order. Order placed @1645 for NG to LIWS, says already inserted, but pt came without one in place . 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 This note was completed by: Tay Jeffrey [facility] PT EDon 04-25-2022 PT ED HNO ID: [id number] Author: Melani Bonner DTR Service: Nutrition Therapy Author Type: Stripping Machine Operator Type: Patient Education Filed: 04/25/2022 1:52 PM Note Text: NUTRITION THERAPY PATIENT EDUCATION SERVICE DATE: 04/25/2022 SERVICE TIME: 10:30 AM TOPIC: Diet: Gastric Bypass/Reconstrution Surgery ( Not Intended for Weight Loss) LEARNING ASSESSMENT Individuals Assessed: Patient and Family Preferred Learning Method: : Verbal Instruction and Written Instruction Barriers to Learning: : patient drowsy and still NPO LEARNING RESPONSE Instruction Provided to: Family member Patient / Family Response: Verbalizes Understanding and Recommend Cont. Instruction Method of Instruction: Written instruction - handouts Verbal instruction Material(s) Provided to Patient: Nutrition Therapy instruction material: Gastric Bypass/Reconstrution Surgery ( Not Intended for Weight Loss) Follow-Up Plan: follow up at a later date Referral (Recommendation): Nutrition - Inpatient MNT Billing: $ Routine Care : 1-15 minutes SIGNATURE: Melani Bonner DTR PATIENT NAME: Swathi Valladares DATE: April 25, 2022 TIME: 1:50 PM PAGER: Normal [facility] Phosphate SerPl-mCncon 04-25 Phosphate [Mass/Vol] 3.5 mg/dL Normal 2.7-4.8 [facility] Comment on above: Order Comment: Speci men Type: BLOOD SPECIMEN Ordering Facility: [facility] Address: [address] [place] [address] Performed By: #### 1 9123-9, 2777-1, 82746-4 #### [facility] CLIA [id number] [address] [place] [address] THERAPY NTon 04-25-2022 THERAPY NT HNO ID: [id number] Author: Matthieu Ashraf PT Service: Physical Therapy Author Type: Physical Therapist Type: Therapy (PT/OT/Speech/Resp) Filed: 04/25/2022 2:22 PM Note Text: Physical Therapy Evaluation SERVICE DATE: 04/25/2022 SERVICE TIME: 1332 to 1401 ROOM: [address] [address] Recommended Discharge Disposition: Home PT Recommended Discharge Disposition Comments: Patient will benefit from home PT upon discharge for continued strengthening and improvement in activity tolerance for return to baseline function Anticipated Discharge Needs: Physical Assist at Home;Equipment Physical Assist at Home for: Transportation;Shoppin g;Cleaning;Laundry;Sirisha ls Recommended Discharge Equipment: Shower Chair PT 6 Clicks Score: 20 Precautions/Activity Restrictions: Fall Risk;Lines/Tubes/Drain s;Abdominal Current Hospital Course: s/p laparoscopic gastric tumor resection Reason for Hospital Admission: 66 y/o F admitted with large gastric mass, s/p exploratory laparotomy, resection of gastric tumor with distal gastrectomy Relevant Past Medical History: CHF, chronic cough, diverticulitis, TAVR, GERD, CVA, CPOD, lupus Response to Therapy Interventions: Good participation in activities, Pain, Low activity tolerance Assessment Comments: Patient demonstrated safe sit to stand and gait with wheeled walker to chair. Patient experiencing nausea in upright positioning that slowly reduced once in chair and cold cloth applied to patients forehead. RN aware of patients nausea at this time. Continue skilled needs due to: Functional mobility/skill impairments Physical Therapy Problem List: Pain;Decreased Activity Tolerance;Functional Mobility Impairment Treatment Interventions: Education;Strengthenin g;Functional Mobility Training;Balance Training;Neuromuscular Re-education;Pain Management Plan for next visit: Gait training, Pre-gait activities, Sit to Stand Transfers, Stairs training, Standing Balance, Standing Tolerance, Walker Training Home Environment Patient Lives With: Family (lives with 2 grandchildren) Assistance Available: PRN Entry To Home: Stairs;With Rail Number Of Stairs Into Home: 3 Number Of Stairs To Bed/Bath: one floor set up Tub/Shower Type: has both tub and shower, uses walk in shower Laundry: in basement. 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 CURRENT FUNCTIONAL STATUS: Most recent performance Current Functional Mobility Assist Level Additional Information Rolling Stand By Assistance Supine to Sit Stand By Assistance (Verbal cues for seqeuncing of log roll technique) Sit to Supine Scooting Stand By Assistance Sit to Stand Contact Guard Assistance Stand to Sit Contact Guard Assistance Bed to Chair Toilet/Commode Gait Contact Guard Assistance Gait Device: Wheeled Walker Gait Distance (feet): 5 ft to chair Stairs Curb Step Car Transfer Blank patel indicate activity not attempted General Deviations/Observation s: Lizbet decreased;Flexed trunk posture;Step length decreased Balance: Static Sitting;Dynamic Sitting;Static Standing;Dynamic Standing Static Sitting Balance: Good Patient able to maintain balance without handhold support, limited postural sway Dynamic Sitting Balance: Good Patient accepts moderate challenge, able to maintain balance while picking up object off floor Static Standing Balance: Good Patient able to maintain balance without handhold support, limited postural sway Dynamic Standing Balance: Fair Patient accepts minimal challenge, able to maintain balance while turning head/trunk -M: 4: Move to chair / commode Learning/Educational Needs: Discharge Plan;Functional Activities/Mobility;Pa in Management;Plan of Care;Precautions;Rehab ilitation Techniques and Procedures;Safety Goals for Plan of Care: Patient /Caregiver Goals: Go Home Goals: Patient will demonstrate progress with functional mobility to allow safe discharge to home with available support and/or physical assistance. Transfer sit to/from stand with: Stand By Assistance Ambulate with: Stand By Assistance Distance: 100 ft Device: Wheeled Walker Ambulate up and down steps with: Stand By Assistance Number of steps: 3 Device: Rail Rehab Potential: Good Patient will be discontinued from Physical Therapy when no further skilled needs are identified in this setting. PLAN: PT Frequency: 3 times per week Plan of Care developed with: Patient;Family TREATMENT INTERVENTIONS: Therapy Diagnosis: Reduced mobility-other Interventions Provided: Evaluation;Therapeutic Activity (92025) $ Evaluation-Low (93929) Billed Units: 1 unit Therapeutic Activity (69329) Treatment Minutes: 14 $ Therapeut (more content not included)... Normal [facility] THERAPY NT HNO ID: [id number] Author: WAYNE Hilario/Ursula Service: Occupational Therapy Author Type: Occupational Therapist Type: Therapy (PT/OT/Speech/Resp) Filed: 04/25/2022 11:22 AM Note Text: Occupational Therapy Evaluation SERVICE DATE: 04/25/2022 SERVICE TIME: 1026 to 1050 ROOM: [address] [address] Recommended Discharge Disposition: Home OT Anticipated Discharge Needs: Physical Assist at Home;Equipment Physical Assist at Home for: Cleaning;Laundry;Meals ;Shopping;Transportati on Recommended Discharge Equipment: Grab Bars-Shower;Grab Bars-Toilet;Hand Held Shower;Lumber Handler;Shower Chair OT 6 Clicks Score: 20 Precautions/Activity Restrictions: Fall Risk;Lines/Tubes/Drain s;Abdominal Reason for Hospital Admission: 66 y/o F admitted with large gastric mass, s/p exploratory laparotomy, resection of gastric tumor with distal gastrectomy Relevant Past Medical History: CHF, chronic cough, diverticulitis, TAVR, GERD, CVA, CPOD, lupus Response to Therapy Interventions: Requires additional time to complete activities, Pain Continue skilled needs due to: Functional impairment Occupational Therapy Problem List: Impaired Self Care;Decreased Activity Tolerance;Functional Mobility Impairment;Balance Impaired Cognition/Communicatio n Deficits Responsiveness: Alert, Awake Follows Commands: 3-step Commands Treatment Interventions: Education;Self Care / Home Management;Energy Conservation Training;Joint Mobility;Strengthening ;Functional Mobility Training;Balance Training Plan for next visit: Bathing training, Coping, Dressing training, Energy conservation, Fall prevention, Standing balance, Standing tolerance, Toileting instruction Home Environment Patient Lives With: Family (2 grandsons) Assistance Available: PRN Entry To Home: Stairs;With Rail Number Of Stairs Into Home: 3 Number Of Stairs To Bed/Bath: one floor set up Tub/Shower Type: has both tub and shower, uses walk in shower Laundry: in basement. 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 Patient Report: I need to lay down CURRENT FUNCTIONAL STATUS: Most recent performance Current Activities of Daily Living Assist Level Additional Information Feeding Modified Independent Grooming Stand By Assistance Bathing Upper Body Stand By Assistance Bathing Lower Body Minimal Assistance Dressing Upper Body Contact Guard Assistance Dressing Lower Body Minimal Assistance Toileting Minimal Assistance Instrumental Activities of Daily Living Assist Level Additional Information Meal/Beverage Prep Cleaning Laundry Medication Management with Strategies Functional Mobility Assist Level Additional Information Rolling Supine to Sit Contact Guard Assistance Sit to Supine Stand By Assistance Scooting Stand By Assistance Sit to Stand Stand to Sit Bed to Chair Toilet/Commode Shower Functional Mobility Blank patel indicate activity not attempted Balance: Static Sitting;Dynamic Sitting Static Sitting Balance: Good Patient able to maintain balance without handhold support, limited postural sway Dynamic Sitting Balance: Good Patient accepts moderate challenge, able to maintain balance while picking up object off floor Learning/Educational Needs: Discharge Plan;Family Education/Training;Equ ipment;Functional Activities/Mobility;Pl an of Care;Precautions;Rehab ilitation Techniques and Procedures;Safety;Self Care Goals for Plan of Care: Patient /Caregiver Goals: Go Home Goals: Patient will demonstrate progress with self-care, cognitive and/or coping needs identified to allow safe discharge to home with available support and/or physical assistance. Rehab Potential: Good Patient will be discontinued from Occupational Therapy when no further skilled needs are identified in this setting. PLAN: OT Frequency: 2 times per week (+1 PRN visit) Plan of Care developed with: Patient TREATMENT INTERVENTIONS: Therapy Diagnosis: Reduced mobility-other;Decreas ed activities of daily living (ADL) Interventions Provided: Evaluation;Self Snf Management (00354) $ Evaluation-Low (91495) Billed Units: 1 unit Self Snf Management (36909) Treatment Minutes: 9 $ Self Snf Management (36996) Billed Units: 1 unit Educated on energy conservation techniques including the importance of pursed lip breathing, pacing self, maintaining good posture, and organizing self and time in order to increase functional activity tolerance and independence and decrease fatigue and risk of falls. Educated pt on abdominal precautions during ADLs including lifting restrictions (<10 lbs) , no heavy pushing/pulling, no excessive bending or twisting, and log roll technique. Education on compensatory techniques for LB dressing including figure (more content not included)... 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 PACU/ICU Patient Condition: stable. Anticipated Disposition: inpatient floor planned admission. Neurological Status: aware and responsive. Pulmonary Status: breathing comfortably on room air Airway Control: returned to baseline unsupported. Cardiovascular Status: stable. Pain Management: clinically adequate Postoperative Hydration: acceptable. Intraoperative Events: no significant anesthesia events Post Operative Nausea/Vomiting Status: no significant post operative nausea or vomiting Anesthetic Observations: Recommendation: continue current plan of care. Anesthesia Observations No Documentation SIGNATURE: Eldon Nobles MD PATIENT NAME: Swathi Valladares DATE: April 24, 2022 TIME: 5:35 PM CSN: [id number] [facility] ANES PRE-OPon 04-24-2022 ANES PRE-OP HNO ID: [id number] Author: Eldon Nobles MD Service: Anesthesiology Author Type: Anesthesiologist Type: Anesthesia Preprocedure Evaluation Filed: 04/24/2022 9:53 AM Note Text: ANESTHESIOLOGY DAY OF SURGERY NOTE : 1955 Procedure Information Date/Time: 04/24/22 1030 Procedure: GASTRECTOMY SUBTOTAL (N/A ) - GASTRECTOMY SUBTOTAL GSTRCT PRTL DSTL W/FRMJ INTSTINAL POUCH [25184 (CPT?)] Location: OR / OR Surgeons: Arnaldo Judd MD Estimated body mass index is 21.81 kg/m? as calculated from the following: Height as of 04/23/22: 160 cm (5' 3 ). Weight as of 04/23/22: 55.8 kg (123 lb 1.6 oz). Most recent hematocrit and potassium results: Hematocrit 37.7 04/22/2022 Potassium 4.0 04/22/2022 Relevant Problems CARDIO (+) (aortic stenosis) (+) Congestive heart failure (HCC) (+) Postoperative hypertension (+) Prosthetic aortic valve stenosis (+) Severe aortic stenosis GI (+) GERD (gastroesophageal reflux disease) NEURO-PSYCH (+) CVA (cerebral vascular accident) ([facility]) (+) History of gastrointestinal stromal tumor (GIST) PULMONARY (+) COPD (chronic obstructive pulmonary disease) ([facility]) (+) Pneumonia due to infectious organism I - PHYSICAL EVALUATION AIRWAY Patient intubated: No. Tracheostomy tube not present Mallampati: III. TM distance: >3 FB. Neck ROM: full ROM without neurological symptoms. Mouth opening: adequate. Short neck: no. Thick neck: no DENTAL Dental findings: teeth intact. II - ANESTHESIA PLAN ASA Score: 3 Anesthetic Plan: general Airway type: ETT The patient is not a current smoker. NPO Status: adequate Monitoring plan: standard ASA and invasive hemodynamic monitoring. Monitoring method: arterial Line Postoperative analgesic plan: multimodal analgesia. Informed Consent Anesthetic risks, benefits, alternatives, personnel and consent discussed: yes. Patient / Responsible Constitution Party agrees to proceed: yes Patient / Surrogate agrees to blood products: Yes DNR status not reviewed with patient and/or family prior to surgery. Significant changes in the patient condition since the History and Physical, not otherwise documented in primary service progress note: no. Potential Anesthesia issues that may suggest increased risk of complications or contraindication to planned procedure: none. Has cardiac clearance. Echo shows good function and low gradient.Good ex tolerance. Vitals Value Taken Time BP 142/88 04/24/22 0930 Pulse 70 04/24/22 0930 Resp 16 04/24/22 0930 Temp 37.4 ?C (99.3 ?F) 04/24/22 0930 SpO2 99 % 04/24/22 0930 Facility-Administered Medications as of 04/24/2022 Medication Dose Route Frequency - lidocaine 10 mg/mL (1 %) 1-2 mg injection (XYLOCAINE) 0.1-0.2 mL INTRADERMAL PRN - lactated ringers iv infusion 5-30 mL/hr INTRAVENOUS CONTINUOUS - heparin 5,000 Units injection 5,000 Units SUBCUTANEOUS ONCE - cefTRIAXone 2 g in D5W 100 mL Vial-Bag (ROCEPHIN) 2 g INTRAVENOUS Pre-Op Once And - metroNIDAZOLE iv piggyback 500 mg in NaCl (iso-osmotic) 100 mL (FLAGYL) 500 mg INTRAVENOUS Pre-Op Once - acetaminophen 1,000 mg tab(s) (TYLENOL) 1,000 mg ORAL STAT Outpatient Medications as of 04/24/2022 Medication Sig - hydrOXYchloroQUINE (PLAQUENIL) 200 mg tablet TAKE 1 TABLET BY MOUTH TWICE DAILY WITH FOOD AND YEARLY EYE EXAM - aspirin 81 mg chewable tablet Take 162 mg by mouth once daily. - therapeutic multivitamin (THERA VITAMIN) tablet Take 1 tablet by mouth daily with breakfast. - [] ondansetron (ZOFRAN) 8 mg tablet Take 1 tablet by mouth every 8 hours as needed for nausea/vomiting. - imatinib (GLEEVEC) 400 mg tablet Take 1 tablet (400 mg) by mouth once daily. - famotidine (PEPCID AC) 20 mg tablet Take 1 tablet by mouth as needed. I have interviewed and examined the patient. I have reviewed the medical record and/or the pre-anesthesia evaluation, pertinent labs, and test results. This contains updated information obtained within 48 hours of Surgery/Procedure. SIGNATURE: Eldon Nobles MD PATIENT NAME: Swathi Valladares DATE: April 24, 2022 TIME: 9:52 AM CSN: [id number] [facility] BRIEF OP NOTon 04-24-2022 BRIEF OP NOT HNO ID: [id number] Author: Gustabo Bradley MD Service: General Surgery Author Type: Resident Type: Brief Op Note Filed: 04/24/2022 1:32 PM Note Text: GENERAL SURGERY BRIEF OP NOTE LOG ID: [id number] Surgery/Procedure Date: 04/24/2022 Incision/Procedure Start Time: 11:26 AM Incision Close/Procedure End Time: 1:25 PM Surgeon(s) and Space Physicist(s): Surgeon(s) and Role: * Arnaldo Judd MD - Primary * Gustabo Bradley MD - Resident - Assisting No Additional Staff Procedure(s): 1) Exploratory laparotomy 2) Resection of gastric tumor with distal gastrectomy 3) Bilroth 1 reconstruction Anesthesia: General Findings: Large gastric mass arising form the lesser curvature involving most of the gastric body and all of the antrum, specimen resected with negative gross margins Tubes/Drains: 19Fr NEELAM drain behind the anastomosis Estimated Blood Loss: 20 mls Specimens: Gastric mass Wound Classification: Class 2, operative wound clean-contaminated, gastrointestinal/bilia ry tract entered without significant spillage Pre-Op/Pre-Procedure Diagnosis: Pre-Op Diagnosis Codes: * 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 [facility] Comment on above: Order Comment: Speci men Type: BLOOD SPECIMEN Ordering Facility: [facility] Address: [address] [place] [address] Performed By: #### 1 9123-9, 2777-1, 09564-1 #### [facility] [place] [id number] GIST HOTSPOT PANELon 022 GIST HOTSPOT PANEL [facility] Comment on above: Order Comment: Shamar brothers Type: BLOOD SPECIMEN Ordering Facility: [facility] Address: [address] [place] [address] Result Comment: Jas rointestinal Stromal Tumor (GIST) Hotspot Panel v2 NGS Laboratory Accession Number: [id number] Case #: [id number] Block #: B15 Sample Type: FFPET % Tumor: 90 Result: KIT - No variant detected [Reference sequence ([id number])]. PDGFRA - No variant detected [Reference sequence ([id number])]. BRAF - No variant detected [Reference sequence ([id number])]. Interpretation: No cancer-related sequence changes were identified in the variant hotspots of the KIT, PDGFRA or BRAF genes. Approximately 10-15% of GISTs lack mutation in KIT or PDGFRA. The majority of these GISTs have succinate dehydrogenase (SDH) complex inactivation, which can be detected to immunohistochemistry (IHC). In the absence of a known motor bus driver, only a subset of GISTs without KIT/PDGFRA variants benefit from imatinib treatment. Those with known alternative drivers (SDH deficiency, BRAF activating mutations, NF1 inactivating mutations, etc.) are unlikely to respond to imatinib treatment. KIT (also known as CD117 or c-kit) encodes for a receptor tyrosine kinase that is involved in multiple signaling pathways mediating cell growth and survival. Zacu-yz-sejydmfz alterations in KIT are seen in approximately 85% of gastrointestinal stromal tumors (GISTs). The majority of KIT variants in GIST are located in exon 11 (juxtamembrane domain) and exon 9 (extracellular dimerization motif), with rare primary alterations occurring in exons 13 and 17. Primary KIT alterations are associated with imatinib response. Secondary KIT mutations in exons 13, 14, 17 and 18 are often identified in patients who have developed acquired imatinib resistance. PDGFRA (platelet derived growth factor receptor alpha) encodes a receptor tyrosine kinase that is part of multiple pathways involved in cell survival and proliferation, including the mitogen-activated protein kinase (MAPK) and STAT (signal transducers and activators of salesperson pianos and organs) signaling pathways. Phzv-ys-iovnvbuz alterations in PDGFRA are seen in 5-10% of GISTs. The majority of PDGFRA variants involve exon 18 (tyrosine kinase domain 2), although rare alterations in exon 12 (juxtamembrane domain) and exon 14 (tyrosine kinase domain 1) are also observed. PDGFRA alterations, with the exception of Xfx171Cyr (D842V), are associated with imatinib response. BRAF (B-Luis rodrigo-oncogene, serine/threonine kinase) encodes a serine threonine kinase that is part of the mitogen-activated protein kinase (MAPK) signaling pathway, which promotes cellular growth and survival. Alterations in BRAF exon 15 ([id number], aka V600E) are present in a small subset of patients with intestinal GISTs lacking KIT/PDGFRA mutations and result in constitutive activation of the enzyme. Patients with BRAF variant-positive GISTs are unlikely to respond to imatinib. Methodology: Following extraction of tumor DNA from microdissected FFPE, FNA, and CB specimens and library construction utilizing the custom Cancer Hotspot Panel v.1 ([employer], [place], [place]), DNA sequencing of gene mutation hotspot regions was performed on the MiSeq instrument ([employer], [place], [place]). LearnBoost software ([employer], [place], [place]) was used to analyze FASTQ files to identify hotspot mutations in requested genes. Limitations: Sequence changes outside the analyzed mutation hotspots, including intronic, noncoding, and splicing site variants, will not be identified in this test. Insertions and deletions larger than the 20 and 40 bp, respectively, may not be identified in this test. The lower limit of detection of this assay is approximately 5% allele proportion. Variants below 5% allele proportion may be reported at the discretion of the molecular pathology professional staff if the technical quality of the sequencing is sufficient at that location and the call is unequivocal. Negative results from specimens for which the percentage of tumor cells is 10% or less should be interpreted with caution. A minimum coverage depth of 100 reads is required across the entire region of interest. Any region below this minimum will not be resulted, and a list of low coverage areas will be included in the report as applicable. Fixation in neutral buffered formalin is preferred. Decalcification agents and fixation agents containing heavy metals (e.g., B5) or harsh acid or base components (e.g. Bouin's solution) can inhibit PCR reactions. Disclaimer: This test was developed and its performance characteristics determined by [facility] [place] ([facility]). It has not been cleared or approved by the FDA. [facility] is regulated under CLIA as certified to perform high- complexity testing. This test is used for clinical purposes. It should not be regarded as investigational or for research. Testing and interpretation performed at [facility] (more content not included)... Performed By: #### 1 9123-9, 2777-1, 19467-5 #### [facility] CLIA [id number] [address] [place] [address] STATES OF [facility] NTRK NEXT GENERATION SEQUENC [facility] 04-24-2022 NTRK NEXT GENERATION SEQUENCING NTRK NGS Panel Normal [facility] Comment on above: Order Comment: Speci men Type: TISSUE SPECIMENOrdering Facility: [facility] Address: [address] [place] [id number] Result Comment: Laboratory Accession Number: [id number] Case #: [id number] Block #: B15 Sample Type: FFPET % Tumor: 90 Result: Not Detected No NTRK1, NTRK2 and NTRK3 gene fusions were detected in the submitted specimen. Methodology: The NTRK Fusion Analysis by Next Generation Sequencing is a laboratory developed test (LDT) based on anchored multiplex polymerase chain reaction (PCR). Total nucleic acid extracted from the specimen was subjected to nested multiplex PCR. The amplicons were subjected to massively parallel sequencing with 150x2 cycle pair-end reads. A custom informatics pipline (v6.2.7), evaluating three gene targets (see Limitations below for interrogated regions), was used for read alignment (genome build [id number]), fusion gene identification (if any), and annotation. Reporting criteria of a gene fusion are (i) a minimum of five unique reads spanning the fusion junction, (ii) at least three unique start sites are present among these unique reads, and (iii) at least 10% of reads surrounding the break point support the fusion event. Fusion genes that do not meet the above criteria may be reported if they have been previously documented. Limitations: Based on validation, this LDT delivered greater than 900,000 total reads. The test demonstrated 94.1% sensitivity and 75.0% specificity in fusion gene identification. The lower limit of detection is approximately 10% of tumor cells present in the submitted specimen. Fusions below 10% of tumor proportion may be reported at the discretion of the molecular pathology professional staff if the technical quality of the sequencing is sufficient at that location and the call is unequivocal. Reported variants include known disease associated gene fusions and unclear fusion variants with little or no literature support. A sample may be reported as quality not sufficient when the following quality metric circumstances are not met: (i) the number of unique RNA reads is <20% of total reads; (ii) the average number of RNA reads with unique start sites derived from the control gene-specific primer 2 (GSP2) is <10. Due to the labile nature of this LDT's analyte, RNA, false negative results may not be excluded. Fusions resulting from complex rearrangements may not be detected. Structural variants that do not lead to a chimeric fusion transcript will not be detected. This test is not designed to detect single nucleotide variants, insertions, deletions, copy number changes, and RNA transcript isoforms. This test does not distinguish between somatic and inherited variants. The following genes and corresponding exons are interrogated in this LDT: Gene Transcript Exon(s) Covered NTRK1 [id number] 2,4,6,8,10-14 NTRK2 [id number] 5,7,9,11-18 NTRK3 [id number] 15 NTRK3 NM_002530 4,7,10,12-16 Disclaimer: This test was developed and its performance characteristics determined by [facility] [place] ([facility]). It has not been cleared or approved by the FDA. [facility] is regulated under CLIA as certified to perform high- complexity testing. This test is used for clinical purposes. It should not be regarded as investigational or for research. Testing and interpretation performed at [facility], [address] [place] [address]. [place] Number: [id number] As reviewed by Joslyn Mahoney MD, PhD Performed By: #### N TRK ####[facility] [id number] [address] NURSING PROGon 04-24-2022 NURSING PROG HNO ID: [id number] Author: Phuc Lam RN Service: Nursing Author Type: Registered Nurse Type: Nursing Progress Note Filed: 04/24/2022 4:45 PM Note Text: Nursing Progress Note Patient Name: Swathi Valladares Patient Location: [place] [address] __ Transfer Note: Patient transferred into room/unit PK3B/321 in stable condition. Actions taken: No futher actions taken at this time. Will continue to monitor and check with patient. This note was completed by: Phuc Lam [facility] NURSING PROG HNO ID: [id number] Author: Liz Gomez RN Service: Nursing Author Type: Registered Nurse Type: Nursing Progress Note Filed: 04/24/2022 9:36 AM Note Text: PATIENT EDUCATION TOPIC: PROCEDURE / SURGERY: Pre-op Teaching: Logistics Protocols PATIENT NAME: Swathi Valladares PATIENT LOCATION: OR [place]/ OR [place] READINESS TO LEARN COGNITIVE ABILITY: Alert and oriented MOTIVATION TO LEARN: Eager Interested FAMILY SUPPORT: None - Unavailable/disinteres maddi INSTRUCTION PROVIDED TO: Patient PATIENT LEARNS BEST BY: Verbal Instruction FACTORS AFFECTING LEARNING: None PHYSICAL LIMITATIONS AFFECTING LEARNING: None LEARNING RESPONSE DIAGNOSIS: ADULT: Well Adult PATIENT/FAMILY RESPONSE: Verbalizes understanding of: PRE-OPERATIVE INSTRUCTIONS-Correct action to take to follow pre-operative instructions PRE-PROCEDURE INSTRUCTIONS-Correct action to take to follow pre-procedure instructions METHOD OF INSTRUCTION: Verbal instruction FOLLOW-UP PLAN: Complete - No need for follow-up INSTRUCTIONAL AIDS USED: NA SUPPLEMENTAL MATERIAL PROVIDED TO PATIENT: None REFERRAL (RECOMMENDATION): None Electronically Signed By: Liz Gomez Johanna [facility] OPERATIVE NOon 04-24-2022 OPERATIVE NO HNO ID: [id number] Author: Arnaldo Judd MD Service: General Surgery Author Type: Physician Type: Operative Report Filed: 04/27/2022 1:48 PM Note Text: [facility] - Operative Report SWATHI VALLADARES : 1955 AGE: 66. SEX: F PATIENT TYPE: I HOSP SVC: GENS LOCATION: [facility] ATTENDING PHYSICIAN: Arnaldo Judd MD CSN NUMBER: [id number] DATE OF SURGERY/PROCEDURE: 04/24/2022 INCISION/PROCEDURE START TIME: 11:26 AM INCISION CLOSE/PROCEDURE END TIME: 1:25 PM PREOPERATIVE DIAGNOSIS: Gastrointestinal stromal tumor. POSTOPERATIVE DIAGNOSIS: Gastrointestinal stromal tumor. SURGEON: Arnaldo Judd MD JIRA DEVELOPER: Gustabo Madden MD. SURGERY/PROCEDURE: 1. Exploratory laparotomy. 2. Distal hemigastrectomy. 3. Billroth I reconstruction. ANESTHESIA: General endotracheal anesthesia. COMPLICATIONS: None. ESTIMATED BLOOD LOSS: Less than 100 mL. SPECIMENS: Stomach with tumor. WOUND CLASS: 2. INDICATION: Patient is a pleasant 66-year-old female who was found to have a gastric mass. This was biopsied under an endoscopic ultrasound guidance and was noted to have tissue consistent with a possible GIST. However, mutational analysis could not be performed because of most necrotic tissue. The patient was treated with imatinib for several months; however, did not achieve significant reduction in tumor size. Further imaging did not reveal any evidence of metastasis or any other new disease. The patient was discussed at GI Tumor Board and recommendation was to proceed with resection. OPERATIVE FINDINGS: 1. A large gastric mass was noted to intimately involve a significant portion of the lesser curvature of the stomach. 2. Distal gastrectomy was performed to allow for negative margins. 3. There was enough mobility in the stomach to allow a primary reconstruction. DESCRIPTION OF PROCEDURE: The patient was identified and brought to the operating room, placed supine on the operating table. General anesthesia was induced. Abdomen was prepped and draped in a standard surgical fashion. A midline laparotomy incision was made from the epigastrium to about the umbilicus. Dissection was carried down to the fascia which was incised. The falciform ligament was divided between ties. The abdominal wall was retracted. Multiple benign-appearing lesions were noted on the liver. These were all consistent with either cyst or hemangiomas. The mass was visualized. The gastrocolic omentum was transected to the left of the gastroepiploic vein. Dissection was carried superiorly towards the short gastrics and inferiorly to avoid the gastroepiploic vein. The gastroepiploic vein was followed into its confluence. The superior mesenteric vein clamped, tied and transected along with the lymph node bundle. It was elevated towards the duodenum. The right gastric blood vessels were clamped, tied, and transected. At this point, the pylorus was noted to be completely free as well as the first portion of the duodenum. The duodenum was transected using an EndoGIA melendez load. At this point, the stomach was noted to be quite mobile. There were some enlarged lymph nodes in the left gastric bundle at the celiac axis. They all appeared benign appearing to confirm no evidence of malignancy. One of these was transected using LigaSure and was passed and sent down to Pathology for frozen. The frozen did not reveal any evidence of malignancy. The descending left gastric vessels were transected using a clamp tie technique. The stomach was transected with an approximately 2 cm gross margin using an EndoGIA purple load. Two such staple loads were utilized. At this point, the tumor was free and was passed off the table. Next, we proceeded with reconstruction. There was significant mobility of the stomach, so we decided to do primary anastomosis on the medial aspect of the stomach. The staple line on the medial aspect of the stomach was imbricated using multiple interrupted 3-0 silk sutures. The posterior layer was used to connect the duodenum to the stomach using multiple interrupted silk sutures. The staple line on the stomach as well as the duodenum were transected. Gastroduodenostomy was subsequently completed using 3-0 PDS sutures in a continuous running fashion. The anterior part of the anastomosis was completed in a Scott fashion. The second layer was used to imbricate the entire anastomosis using silk. The anastomosis appeared to be wide under palpation. The abdomen was inspected, no evidence of any bleeding, no complications was noted. The small bowel and the mesentery were felt. No evidence of any additional tumors was noted. The gallbladder was quite unremarkable without any stones that were obvious on inspection or gentle palpation. The abdomen was irrigated with 2 L of water. Sponge and instrument counts were noted to be correct. The fascia was closed using continuous ru (more content not included)... Normal [facility] SURGICAL PATHOLOGYon 022 AMENDED REPORT DETAIL Normal [facility] Comment on above: Order Comment: Speci men Type: BLOOD SPECIMEN Ordering Facility: [facility] Address: [address] [place] [phone] Result Comment: Amen ded: 07/02/2022 2:35 PM This report is being amended to reflect changes in the Diagnostic Comment and Synoptic Report patel. The interpretation for the SHDB immunohistochemical stain has been changed from intact/retained to deficient. Drs. Judd and Ruiz were notified of these changes by e-mail on 07/02/2022. JEL 07/02/2022 Edited results: Previously reported on 04/30/2022 at 4:48 PM EDT. Performed By: #### 1 9123-9, 2777-1, 10458-2 #### [facility] CLIA [id number] CASE REPORT Normal [facility] Comment on above: Order Comment: Speci deneen Type: BLOOD SPECIMEN Ordering Facility: [facility] Address: [address] [place] [phone] Result Comment: Surg ica Pathology Report Case: [id number] Authorizing Provider: Arnaldo Judd MD Collected: 04/24/2022 12:06 PM Ordering Location: [facility] Received: 04/24/2022 12:17 PM Operating Room Pathologist: Ryan Solano MD Intraop: Rajendra Diaz MD Specimens: A) - LYMPH NODE, Celiac Artery lymph node B) - STOMACH RESECTION, Distral Gastrectomy C) - DUODENUM RESECTION, Duodenal Staple line D) - STOMACH RESECTION, Gastric Staple line Performed By: #### 1 9123-9, 2777-1, 33007-5 #### [facility] CLIA [id number] [place] [address] CLINICAL HISTORY Gastrectomy subtotal gstrct prtl dstl w/frmj intstinal pouch Normal [facility] Comment on above: Order Comment: Speci men Type: BLOOD SPECIMEN Ordering Facility: [facility] Address: [address] [place] [address] Performed By: #### 1 9123-9, 2777-1, 41637-6 #### [facility] CLIA [id number] [place] [address] DIAGNOSIS COMMENT Normal [facility] Comment on above: Order Comment: Speci men Type: BLOOD SPECIMEN Ordering Facility: [facility] Address: [address] [place] [address] Result Comment: B. I mmunohistochemical stains have been performed on block B15 for tumor classification. The tumor cells display strong, diffuse staining for CD117 and DOG-1, confirming the diagnosis of a gastrointestinal stromal tumor. An additional immunohistochemical stain for SDHB shows lost (deficient) cytoplasmic expression in the tumor cells. No Helicobacter pylori organisms are identified. There is no evidence of epithelial dysplasia or malignancy. Laboratory Developed Test (LDT) Disclaimer: Performance characteristics of immunohistochemical, immunofluorescent and chromogenic in-situ hybridization tests have been determined by the performing laboratory within [facility]???s [facility] [place] ([facility], [facility], [facility] or [facility]) in a manner consistent with CLIA requirements. One or more of these tests have not been cleared or approved by the FDA. [facility] is regulated under CLIA as qualified to perform high-complexity testing. These tests are used for clinical purposes. They should not be regarded as investigational or for research. Positive and negative controls stain appropriately. Corrected results: Previously reported on 04/30/2022 at 4:48 PM EDT. Performed By: #### 1 9123-9, 2777-1, 56144-2 #### [facility] CLIA [id number] [place] [address] FINAL DIAGNOSIS Normal [facility] Comment on above: Order Comment: Speci men Type: BLOOD SPECIMEN Ordering Facility: [facility] Address: [address] [id number] Result Comment: A. C eliac artery lymph node, excision: - One lymph node, negative for malignancy (0/1). B. 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 - Six lymph nodes, negative for malignancy (0/6). - Acute erosive gastritis with reactive gastropathy. C. Duodenal staple line , excision: - Segment of duodenum with no diagnostic abnormality. D. Gastric staple line , excision: - Segment of gastric body/fundus with no diagnostic abnormality. JEL 04/30/2022 Amendment electronically signed by Ryan Solano MD on 07/02/2022 at 2:53 PM Performed By: #### 1 9123-9, 2777-1, 17417-3 #### [facility] CLIA [id number] [address] [place] [address] OF [facility] FINAL PERFORMING LAB Normal [facility] Comment on above: Order Comment: Speci men Type: BLOOD SPECIMEN Ordering Facility: [facility] Address: [address] [place], [place] [id number] Result Comment: Diag nostic interpretation performed at [facility], [address] [place] [address] CLIA# [id number] Dairy Clerk: Rajendra Diaz M.D. Performed By: #### 1 9123-9, 2777-1, 46893-7 #### [facility] CLIA [id number] [address] [place] [address] GROSS DESCRIPTION A. LYMPH NODE. Normal [facility] Comment on above: Order Comment: Speci men Type: BLOOD SPECIMEN Ordering Facility: [facility] Address: [address] Result Comment: Rece ived fresh for frozen section diagnosis designated celiac artery lymph node is a melendez-red lymph node that measures 1.9 x 1.3 x 0.5 cm. The specimen is bisected and totally submitted for frozen section as FSA1. BF April 24, 2022 1:27 PM Gross examination performed at [facility], [address] # [id number] B. STOMACH RESECTION. Received in formalin designated distal gastrectomy is a portion of stomach which measures 11.3 cm in length and ranges in circumference from 4.3 to 2.5 cm distal to proximal. The proximal margin is inked blue, and the distal margin is inked orange. Examination reveals a melendez ovoid mass adherent to the omentum which measures 9.5 x 5.7 x 0.8 cm. The mass is located 2 cm from the proximal margin, 3.5 cm from the distal margin, and 1.6 cm from the omental margin. The uninvolved omentum measures 9.5 x 5.7 x 0.8 cm. The cut surface of the mass is melendez, soft, diffusely hemorrhagic, and approximately 40-50% necrotic. The mass grossly appears to involve the gastric serosa and the muscularis propria but definitive mucosal involvement is not identified. The mass appears grossly encapsulated. The gastric mucosa is melendez with normal mucosal ridges. There is a focal area with multiple attached vessel clips located 1 cm from the proximal margin. Sectioning and palpation of the attached soft tissue reveals multiple melendez to melendez-red lymph nodes measuring up to 1.2 cm in greatest dimension. Meat Specialist sections are submitted as follows: B1-B5 shaved proximal margin, B6-B7 shaved distal margin, B8 mass in relation to perpendicular omental margin (inked black), B9-B10 mass in relation to stomach, B11 mass in relation to adjacent uninvolved stomach, B12-B13 mass in relation to omentum, B14 mass in relation to peritoneal surface of omentum (inked green), B15 mass with necrosis, B16 pylorus, B17 area of vessel clips on mucosa totally submitted, B18 one lymph node trisected and totally submitted, B19-B21 one lymph node bisected and totally submitted per cassette, B22 three possible lymph nodes totally submitted, B23-B32 omental soft tissue submitted for microscopic lymph node evaluation. C. DUODENUM RESECTION. Received in formalin designated duodenal staple line is a specimen consisting of a staple line with embedded melendez soft tissue which measures 4.7 x 0.6 x 0.5 cm. Any possible tissue is cut off of the staple line, and the margin is inked orange. The shave staple line margin is submitted in one cassette. D. STOMACH RESECTION. Received in formalin designated gastric staple line is a specimen consisting of ulysses with attached melendez soft tissue which measures 3.8 x 0.8 x 0.3 cm. The tissue not involved by ulysses is shaved off, and this margin is inked blue. The shave margin is totally submitted in one cassette. BF April 25, 2022 10:38 AM Gross examination performed at [facility], [address] [place] [address] CLIA # [id number] Performed By: #### 1 9123-9, 2777-1, 95395-1 #### [facility] CLIA [id number] [address] [place] [address] INTRAOPERATIVE DIAGNOSIS A. LYMPH NODE. [facility] Comment on above: Order Comment: Speci men Type: BLOOD SPECIMEN Ordering Facility: [facility] Address: [address] [place] [address] Result Comment: FSA1 : Celiac artery lymph node - Negative for malignancy (Dr. Diaz). Intraoperative diagnosis performed at [facility], [address] [place] [address] CLIA # [id number] Performed By: #### 1 9123-9, 2777-1, 70439-4 #### [facility] CLIA [id number] [address] [place] [address] SYNOPTIC REPORT [facility] Comment on above: Order Comment: Speci men Type: BLOOD SPECIMEN Ordering Facility: [facility] Address: [address] [place] [address] Result Comment: JAS ROINTESTINAL STROMAL TUMOR (GIST): Resection GASTROINTESTINAL STROMAL TUMOR (GIST), RESECTION - All Specimens 8th Edition - Protocol posted: 05/01/2021 CLINICAL Preresection Treatment: Systemic therapy performed: imatinib SPECIMEN Procedure: Resection: Distal gastrectomy TUMOR Tumor Focality: Unifocal Tumor Site: Stomach : Stomach, NOS Tumor Size: Greatest Dimension (Centimeters): 9.5 cm Histologic Type: Gastrointestinal stromal tumor, spindle cell type Mitotic Rate: 3 mitoses per 5 mm2 Histologic Grade: G1, low grade (mitotic rate less than or equal to 5 per 5 mm2) Treatment Effect: Present Percentage of Viable Tumor: 50 % Risk Assessment: Low risk MARGINS Margin Status: All margins negative for GIST Closest Margin(s) to GIST: Omental (radial) Distance from GIST to Closest Margin: 1.6 cm REGIONAL LYMPH NODES Regional Lymph Node Status: : All regional lymph nodes negative for tumor Number of Lymph Nodes Examined: 7 PATHOLOGIC STAGE CLASSIFICATION (pTNM, AJCC 8th Edition) Reporting of pT, pN, and (when applicable) pM categories is based on information available to the pathologist at the time the report is issued. As per the AJCC (Chapter 1, 8th Ed.) it is the managing physician???s responsibility to establish the final pathologic stage based upon all pertinent information, including but potentially not limited to this pathology report. TNM Descriptors: y (post-treatment) pT Category: pT3 pN Category: pN0 SPECIAL STUDIES Immunohistochemical Studies: KIT (CD117): Positive Immunohistochemical Studies: DOG1 (ANO1): Positive Immunohistochemical Studies: SDHB: Deficient Molecular Genetic Studies: Performed, see separate report Performed By: #### 1 9123-9, 2777-1, 81687-7 #### [facility] [id number] [address] [place] [address] [place] [place]-28-[place]22 SARS-CoV-2 (COVID-19) RNA SYED+probe Ql (Resp) Detected Abnormal Not Detected [facility] Comment on above: Result Comment: Resu lts Called To Joanna Londono (Nursing Personal Lines Sales Executive) By [facility] And Read Back For Confirmation On 02/28/2022 17:22:08 EDT. This test result should be correlated with clinical presentations and medical history by a healthcare provider to determine its clinical significance. This assay was performed by a reverse transcriptase real-time polymerase chain reaction (rt PCR) method on the Venmo system. This test has been authorized only for the detection of nucleic acid from SARS-CoV-2, not for any other viruses or pathogens. This test has not been FDA cleared or approved. This test has been authorized by FDA under an Emergency Use Authorization (EUA). This test is only authorized for the duration of time the declaration on that circumstances exist justifying the authorization emergency use of in vitro diagnostic tests for detection and/or diagnosis of COVID-19 infection under section 564 (b) (1) of the Act, 21 U.S.C. 360 bbb-3 (b) (1), unless authorization is terminated or revoked sooner. Performed By: #### 2 [id number] ####[place] [address] SARS-CoV-2 (COVID-19) RNA SYED+probe Ql (Unsp spec) Pass Normal Pass [facility] Comment on above: Performed By: #### 2 [id number] ####[place] [address] Specimen source Nom (Unsp spec) Nasal Normal [facility] Comment on above: Performed By: #### 2 [id number] ####[place] [address] Consent for Treatmenton 02-04 Consent for Treatment [id number]#1. 00CD:127 Normal [facility] COVID-19 ([facility])on 02-27-2022 ADMITTED TO INTENSIVE CARE UNIT FOR CONDITION OF INTEREST:FIND:PT: NO Normal [facility] Comment on above: Performed By: #### 2 [id number] ####[place] [address] EMPLOYED IN A HEALTHCARE SETTING:FIND:PT: YES Normal [facility] Comment on above: Performed By: #### 2 [id number] ####[address] [address] FIRST TEST FOR CONDITION OF INTEREST:FIND:PT: Unknown Normal [facility] Comment on above: Performed By: #### 2 [id number] ####[address] [address] HAS SYMPTOMS RELATED TO CONDITION OF INTEREST:FIND:PT: YES Normal [facility] Comment on above: Performed By: #### 2 [id number] ####[address] [place] [address] HOSPITALIZED FOR CONDITION OF INTEREST:FIND:PT: NO Normal [facility] Comment on above: Performed By: #### 2 [id number] ####[place] [address] STATUS:FIND:PT: NO Normal [facility] Comment on above: Performed By: #### 2 [id number] ####[place] [address] RESIDES IN A [facility] CARE SETTING:FIND:PT: Unknown Normal [facility] Comment on above: Performed By: #### 2 [id number] ####[place] [address] COVID-19 ([facility])on 02-25-2022 SARS-CoV-2 (COVID-19) RNA SYED+probe Ql (Resp) Detected Abnormal Not Detected [facility] Comment on above: Result Comment: Call ed ER Kisha @02/25/2022 03:48:44 EDT bab This test result should be correlated with clinical presentations and medical history by a healthcare provider to determine its clinical significance. This assay was performed by a reverse transcriptase real-time polymerase chain reaction (rt PCR) method on the Venmo system. This test has been authorized only for the detection of nucleic acid from SARS-CoV-2, not for any other viruses or pathogens. This test has not been FDA cleared or approved. This test has been authorized by FDA under an Emergency Use Authorization (EUA). This test is only authorized for the duration of time the declaration on that circumstances exist justifying the authorization emergency use of in vitro diagnostic tests for detection and/or diagnosis of COVID-19 infection under section 564 (b) (1) of the Act, 21 U.S.C. 360 bbb-3 (b) (1), unless authorization is terminated or revoked sooner. Performed By: #### 2 [id number] ####[place] [address] SARS-CoV-2 (COVID-19) RNA SYED+probe Ql (Unsp spec) Pass Normal Pass [facility] Comment on above: Performed By: #### 2 [id number] ####[place] [address] Specimen source Nom (Unsp spec) Nasal Normal [facility] Comment on above: Performed By: #### 2 [id number] ####[place] [address] ADMITTED TO INTENSIVE CARE UNIT FOR CONDITION OF INTEREST:FIND:PT: Unknown Normal [facility] Comment on above: Performed By: #### 2 [id number] ####[place] [address] EMPLOYED IN A HEALTHCARE SETTING:FIND:PT: YES Normal [facility] Comment on above: Performed By: #### 2 [id number] ####[place] [address] FIRST TEST FOR CONDITION OF INTEREST:FIND:PT: Unknown Normal [facility] Comment on above: Performed By: #### 2 [id number] ####[place] [address] HAS SYMPTOMS RELATED TO CONDITION OF INTEREST:FIND:PT: Unknown Normal [facility] Comment on above: Performed By: #### 2 [id number] ####[place] [address] HOSPITALIZED FOR CONDITION OF INTEREST:FIND:PT: Unknown Normal [facility] Comment on above: Performed By: #### 2 [id number] ####[place] [address] STATUS:FIND:PT: Unknown Normal [facility] Comment on above: Performed By: #### 2 [id number] ####[place] [address] RESIDES IN A CONGREGATE CARE SETTING:FIND:PT: Unknown Normal [facility] Comment on above: Performed By: #### 2 [id number] ####[address] [place] [address] Consent for Treatmenton 02-04 Consent for Treatment [id number]#1. 00CD:127 Normal [facility] Rapid COVID Antigen ([facility])on 02-25-2022 Rapid COV Int NEG Ctl Pass Normal [facility] Comment on above: Performed By: #### 2 [id number] ####[facility] [address] [place] [address] Rapid COV Int POS Ctl Pass Normal [facility] Comment on above: Performed By: #### 2 [id number] ####[address] [place] [address] SARS-CoV+SARS-CoV-2 (COVID-19) Ag IA.rapid Ql (Resp) Detected Abnormal Not Detected [facility] Comment on above: Result Comment: The MegaPath System for Rapid Detection of SARS-CoV-2 is a chromatographic digital immunoassay intended for the direct and qualitative detection of SARS-CoV-2 nucleocapsid antigens in nasal swabs from individuals who are suspected of COVID-19 by their healthcare provider within the first five days of the onset of symptoms. Negative results should be treated as presumptive, do not rule out SARS-CoV-2 infection and should not be used as the sole basis for treatment or patient management decisions, including infection control decisions. Negative results should be considered in the context of a patient?s recent exposures, history and the presence of clinical signs and symptoms consistent with COVID-19, and confirmed with a molecular assay, if necessary, for patient management. For in vitro diagnostic use. In the [place], only for use under an Emergency Use Authorization. In the [place], this test has not been FDA cleared or approved; this test has been authorized by FDA under an EUA for use by authorized laboratories; use by laboratories certified under the CLIA, 42 U.S.C. ?263a, that meet requirements to perform moderate, high, or waived complexity tests and at the Point of Care (POC), i.e., in patient care settings operating under a CLIA Certificate of Waiver, Certificate of Compliance, or Certificate of Accreditation. This test has been authorized only for the detection of proteins from SARS-CoV-2, not for any other viruses or pathogens; and, in the [place], this test is only authorized for the duration of the declaration that circumstances exist justifying the authorization of emergency use of in vitro diagnostics for detection and/or diagnosis of the virus that causes COVID-19 under Section 564(b)(1) of the Act, 21 U.S.C. ? 360bbb-3(b)(1), unless the authorization is terminated or revoked sooner. Performed By: #### 2 [id number] ####[place] [address] ADMITTED TO INTENSIVE CARE UNIT FOR CONDITION OF INTEREST:FIND:PT: NO Normal [facility] Comment on above: Performed By: #### 2 [id number] ####[place] [address] EMPLOYED IN A HEALTHCARE SETTING:FIND:PT: YES Normal [facility] Comment on above: Performed By: #### 2 [id number] ####[place] [address] FIRST TEST FOR CONDITION OF INTEREST:FIND:PT: Unknown Normal [facility] Comment on above: Performed By: #### 2 [id number] ####[place] [address] HAS SYMPTOMS RELATED TO CONDITION OF INTEREST:FIND:PT: Unknown Normal [facility] Comment on above: Performed By: #### 2 [id number] ####[place] [address] HOSPITALIZED FOR CONDITION OF INTEREST:FIND:PT: NO Normal [facility] Comment on above: Performed By: #### 2 [id number] ####[place] [address] STATUS:FIND:PT: Unknown Normal [facility] Comment on above: Performed By: #### 2 [id number] ####[place] [address] [facility]TING:FIND:PT: Unknown Normal [facility] Comment on above: Performed By: #### 2 [id number] ####[facility] [address] [place] [address] MAGNESIUM BLDon 02-05-2022 Magnesium [Mass/Vol] 2.3 mg/dL 1.7 - 2 .3 mg/dL [facility] CBC W Auto Differential pane l (Bld)on 01-01-2022 Abs Immature Gran <0.03 <0.10 k/uL [facility] Basophils (Bld) [#/Vol] 10*3/uL <0.11 k/uL [facility] Basophils/100 WBC (Bld) 0.3 % [facility] Differential cell count method Nom (Bld) Auto [facility] Eosinophils (Bld) [#/Vol] 0.18 10*3/uL <0.46 k/uL [facility] Eosinophils/100 WBC (Bld) 5.5 % [facility] Erythrocyte distribution width (RBC) [Ratio] 14.4 % 11.5 - 15.0 % [facility] Hematocrit (Bld) [Volume fraction] 32.7 % Low 36.0 - 46.0 % [facility] Hemoglobin (Bld) [Mass/Vol] 10.2 g/dL Low 11.5 - 15.5 g/dL [facility] Immature Gran % 0.3 % [facility] Lymphocytes (Bld) [#/Vol] 0.78 10*3/uL Low 1.00 - 4.00 k/uL [facility] Lymphocytes/100 WBC (Bld) 23.9 % [facility] MCH (RBC) [Entitic mass] 27.9 pg 26.0 - 34.0 pg [facility] MCHC (RBC) [Mass/Vol] 31.2 g/dL 30.5 - 36.0 g/dL [facility] MCV (RBC) [Entitic vol] 89.3 fL 80.0 - 100.0 fL [facility] Monocytes (Bld) [#/Vol] 0.25 10*3/uL <0.87 k/uL [facility] Monocytes/100 WBC (Bld) 7.7 % [facility] Neutrophils (Bld) [#/Vol] 2.03 10*3/uL 1.45 - 7.50 k/uL [facility] Neutrophils/100 WBC (Bld) 62.3 % [facility] Nucleated RBC (Bld) [#/Vol] 10*3/uL <0.01 k/uL [facility] Nucleated RBC/100 WBC (Bld) [Ratio] 0.0 /100 WBC [facility] Platelet mean volume (Bld) [Entitic vol] 8.3 fL Low 9.0 - 12.7 fL [facility] Platelets (Bld) [#/Vol] 175 10*3/uL 150 - 400 k/uL [facility] RBC (Bld) [#/Vol] 3.66 10*6/uL Low 3.90 - 5.2 0 m/uL [facility] WBC (Bld) [#/Vol] 3.26 10*3/uL Low 3.70 - 11. 00 k/uL [facility] System Comprehensive metabolic 2000 panelon 01-01-2022 Albumin [Mass/Vol] 3.7 g/dL Low 3.9 - 4.9 g/dL [facility] ALP [Catalytic activity/Vol] 112 U/L 34 - 123 U/L [facility] ALT [Catalytic activity/Vol] 11 U/L 7 - 38 U/L [facility] Anion gap [Moles/Vol] 5 mmol/L Low 9 - 18 mmol/L [facility] AST [Catalytic activity/Vol] 25 U/L 13 - 35 U/L [facility] Bilirubin [Mass/Vol] 0.7 mg/dL 0.2 - 1 .3 mg/dL [facility] Calcium [Mass/Vol] 9.1 mg/dL 8.5 - 10. 2 mg/dL [facility] Chloride [Moles/Vol] 104 mmol/L 97 - 10 5 mmol/L [facility] CO2 [Moles/Vol] 25 mmol/L 22 - 30 mmol/L [facility] Creatinine [Mass/Vol] 0.77 mg/dL 0.58 - 0.96 mg/dL [facility] Estimated Glomerular Filtration Rate 85 mL/min/1.73m >=60 mL/min/1.73m [facility] Glucose [Mass/Vol] 86 mg/dL 74 - 99 mg/dL [facility] Potassium [Moles/Vol] 3.9 mmol/L 3.7 - 5.1 mmol/L [facility] Protein [Mass/Vol] 11.1 g/dL High 6.3 - 8.0 g/dL [facility] Sodium [Moles/Vol] 134 mmol/L Low 136 - 144 mmol/L [facility] Urea nitrogen [Mass/Vol] 17 mg/dL 7 - 21 mg/dL [facility] ANES POSTPROC EVALon 022 ANES POSTPROC EVAL HNO ID: [id number] Author: Adan Butterfield DO Service: Anesthesiology Author Type: Anesthesiologist Type: Anesthesia Postprocedure Evaluation Filed: 11/08/2021 3:08 PM Note Text: POST ANESTHESIA EVALUATION NOTE : 1955 Procedure Summary Date: 11/08/21 Room / Location: [facility] Endoscopy - ENDO Anesthesia Start: 1354 Anesthesia Stop: 1504 Procedure: EGD - THERAPEUTIC, EUS, OR TUBE INTERVENTIONS Diagnosis: Gastric mass Scheduled Providers: Cholo Cuello MD; Adan Butterfield DO; BRADLEY Restrepo Responsible Provider: Adan [place]field DO Anesthesia Type: MAC ASA Status: 3 Anesthesia Type: MAC Last Vitals Vitals Value Taken Time BP 97/61 11/08/21 1503 Temp 36.6 11/08/21 1508 Pulse 70 11/08/21 1508 Resp 16 11/08/21 1508 SpO2 98 % 11/08/21 1508 Vitals shown include unvalidated device data. Post Anesthesia Patient Status Patient Evaluation: PACU. PACU/ICU Patient Condition: stable. Anticipated Disposition: phase 2 then home. Neurological Status: aware and responsive. Pulmonary Status: breathing comfortably on room air Airway Control: returned to baseline unsupported. Cardiovascular Status: stable. Pain Management: clinically adequate Postoperative Hydration: acceptable. Intraoperative Events: no significant anesthesia events Post Operative Nausea/Vomiting Status: no significant post operative nausea or vomiting Anesthetic Observations: Recommendation: further care per PACU/ICU/floor team. Anesthesia Observations No Documentation SIGNATURE: Adan Butterfield DO PATIENT NAME: Swathi Valladares DATE: November 08, 2021 TIME: 3:08 PM CSN: [id number] Normal [facility] ANES PRE-OPon 11-08-2021 ANES PRE-OP HNO ID: [id number] Author: Adan Butterfield DO Service: Anesthesiology Author Type: Anesthesiologist Type: Anesthesia Preprocedure Evaluation Filed: 11/08/2021 1:52 PM Note Text: ANESTHESIOLOGY DAY OF SURGERY NOTE : 1955 Procedure Information Date/Time: 11/08/21 1330 Scheduled providers: Cholo Cuello MD; Adan Butterfield DO; BRADLEY Restrepo Procedure: EGD - THERAPEUTIC, EUS, OR TUBE INTERVENTIONS Location: [facility] Endoscopy - ENDO Estimated body mass index is 20.37 kg/m? as calculated from the following: Height as of 10/17/21: 160 cm (5' 3 ). Weight as of 10/17/21: 52.2 kg (115 lb). Most recent hematocrit and potassium results: Hematocrit 37.5 08/17/2021 Potassium 4.5 08/17/2021 Relevant Problems CARDIO (+) (aortic stenosis) (+) Congestive heart failure (HCC) (+) Postoperative hypertension PULMONARY (+) Pneumonia due to infectious organism Other (+) Tachycardia I - PHYSICAL EVALUATION AIRWAY Patient intubated: No. Mallampati: II. TM distance: >3 FB. Neck ROM: full ROM without neurological symptoms. Mouth opening: adequate. Short neck: no. Thick neck: no DENTAL Dental findings: poor dentition. II - ANESTHESIA PLAN ASA Score: 3 Anesthetic Plan: MAC The patient is not a current smoker. NPO Status: adequate Monitoring plan: standard ASA. Postoperative analgesic plan: parenteral or oral opioids, multimodal analgesia and per surgical service. Anesthetic Risks, Benefits, Alternatives, Personnel Discussed. Consent obtained from: patient.Patient / Surrogate agrees to blood products: Yes Potential Anesthesia issues that may suggest increased risk of complications or contraindication to planned procedure: none. Vitals Value Taken Time BP 137/78 11/08/21 1252 Pulse 77 11/08/21 1252 Resp 16 11/08/21 1252 Temp 37.1 ?C (98.8 ?F) 11/08/21 1252 SpO2 99 % 11/08/21 1252 Outpatient Medications as of 11/08/2021 Medication Sig - aspirin, enteric coated (ASPIRIN, ENTERIC COATED) 81 mg EC tablet 162 mg. - furosemide (LASIX) 20 mg tablet Take 20 mg by mouth as needed. - therapeutic multivitamin (THERA VITAMIN) tablet Take 1 tablet by mouth daily with breakfast. Facility-Administered Medications as of 11/08/2021 Medication Dose Route Frequency - sodium chloride 0.9 % (flush) 2-10 mL (BD POSIFLUSH) 2-10 mL INTRAVENOUS q 12 H - sodium chloride 0.9 % (flush) 2-10 mL (BD POSIFLUSH) 2-10 mL INTRAVENOUS q 12 H - perflutren lipid microspheres 1.3 mL in NaCl (PF) 0.9% 10 mL injection (DEFINITY) INTRAVENOUS DIRECTED PRN - sodium chloride 0.9 % (flush) 10 mL (BD POSIFLUSH) 10 mL INTRAVENOUS DIRECTED PRN I have interviewed and examined the patient. I have reviewed the medical record and/or the pre-anesthesia evaluation, pertinent labs, and test results. This contains updated information obtained within 48 hours of Surgery/Procedure. SIGNATURE: Adan Butterfield DO PATIENT NAME: Swathi Valladares DATE: November 08, 2021 TIME: 1:51 PM CSN: [id number] Normal [facility] CYTOLOGYon 11-08-2021 CYTOLOGY Specimen originated from [facility] Specimen #: [id number] Submitting Physician: Cholo Cuello MD SPECIMEN SUBMITTED A: SUBMUCOSAL MASS, FINE NEEDLE ASPIRATE (THINPREP, SMEARS & CELL BLOCK) _ FINAL DIAGNOSIS A. SUBMUCOSAL MASS, FINE NEEDLE ASPIRATE (THINPREP, SMEARS & CELL BLOCK) Spindle cell neoplasm, consistent with gastrointestinal stromal tumor (GIST). Comment: The neoplastic spindle cells stain positively for CD117 and Dog 1 and are negative for desmin. Desmin stains background contaminating smooth muscle. The morphology of the spindle cells and this immunophenotype are consistent with a GIST. No validation on specimen type or on patient population Positive and negative controls stain appropriately. One or more of these tests have not been validated for the specimen type submitted or its clinical utility has not been established for this patient population. The test results should be interpreted with caution and in the context of the patient's clinical condition. Jamia Mahan M.D. (Electronic Signature) _ CLINICAL DATA gastric mass ADEQUACY INTERPRETATION Diff Quik Rapid Read A: #1 Blood with rare cells. Not adequate #2 Gut contamination only #3 Rare fragments with spindle cells #4 No adequacy given. Smears and Cytolyt only /Tristen reported to Dr. Cuello on 11/08/21. Each letter in the above intra-procedural assessment refers to a unique site. The specific site is indicated in the final diagnosis portion of the report. Each number in this assessment references a discrete evaluation episode. Intra-procedural assessment performed at [facility], [id number] [place] [address] GROSS DESCRIPTION 30 ml hazy pink CytoLyt with particles. 1 ThinPrep, 8 smears (4diff-4pap), cell block STAINS A: SUBMUCOSAL MASS, FINE NEEDLE ASPIRATE (THINPREP, SMEARS & CELL BLOCK) SMEARS RECEIVED x 8, THIN PREP Non-Produce Clerk, CELL BLOCK, H&E, Initial, CD117, DOG-1, DESMIN, Unstained Immuno, Unstained Immuno, Unstained Immuno, H&E RECUT FOR IMMUNO Date of Report: 11/12/2021 Date of Procedure: 11/08/2021 Date of Receipt: 11/08/2021 Submitted by: Cholo Cuello MD Location: [facility]. Diagnostic interpretation performed at [facility], [address] [place] [address]. CLIA Number: [id number] Normal [facility] NURSING PROGon 11-08-2021 NURSING PROG HNO ID: [id number] Author: Molly Wright RN Service: ? Author Type: Registered Nurse Type: Nursing Progress Note Filed: 11/08/2021 12:56 PM Note Text: PATIENT EDUCATION TOPIC: PROCEDURE / SURGERY: Procedure/Surgery: EGD, EUS PATIENT NAME: Swathi Valladares PATIENT LOCATION: Room/bed info not found READINESS TO LEARN COGNITIVE ABILITY: Alert and oriented MOTIVATION TO LEARN: Interested FAMILY SUPPORT: High - Very involved in pt care INSTRUCTION PROVIDED TO: Patient PATIENT LEARNS BEST BY: Individual Instruction FACTORS AFFECTING LEARNING: None PHYSICAL LIMITATIONS AFFECTING LEARNING: None LEARNING RESPONSE DIAGNOSIS: ADULT: Gastric Mass PATIENT/FAMILY RESPONSE: Verbalizes understanding of: PATIENT SAFETY PRINCIPLES METHOD OF INSTRUCTION: Individual instruction FOLLOW-UP PLAN: Complete - No need for follow-up INSTRUCTIONAL AIDS USED: NA SUPPLEMENTAL MATERIAL PROVIDED TO PATIENT: None REFERRAL (RECOMMENDATION): None Electronically Signed By: Molly Spencer [facility] SURGICAL PATHOLOGYon SURGICAL PATHOLOGY Specimen originated from [facility] Specimen #: [id number] Submitting Physician: Cholo Cuello MD FINAL DIAGNOSIS Submucosal gastric mass, biopsy - Fragmented tissue with focus of DOG-1 and C-KIT positive cells. See comment. SR/kr 11/12/2021 COMMENT The specimen consists of several fragments of gastric mucosa, clotted blood and some possible submucosa. Some smooth muscle is also present. DOG-1 and CD117 (C-KIT) stains were obtained to rule out a gastrointestinal stromal tumor. These stains highlight some cells in one fragment of tissue. However, the cells are disconnected and are not definitively neoplastic. An S-100 stain highlights scattered nerves and is negative for neoplasm. Laboratory Developed Test (LDT) Disclaimer: Positive and negative controls stain appropriately. Performance characteristics of immunohistochemical, immunofluorescent and chromogenic in-situ hybridization tests have been determined by [facility]'s [facility] Pathology and Laboratory Medicine [place] [facility] in a manner consistent with CLIA requirements. One or more of these tests have not been cleared or approved by the FDA. [facility] is regulated under CLIA as qualified to perform high-complexity testing. These tests are used for clinical purposes. They should not be regarded as investigational or for research. Camden Rm MD, Ph.D. (Electronic Signature) _ SPECIMEN SUBMITTED A: SUBMUCOSAL GASTRIC MASS, BIOPSY CLINICAL DATA ENDOSCOPIC ULTRASOUND- EUS; GASTRIC MASS; CORE BIOPSY GROSS DESCRIPTION A. Received in formalin are multiple segments of cylindrical tissue aggregating to 2.0 x 0.2 x 0.1 cm, melendez-red and of a soft and friable consistency. Totally submitted in formalin in one cassette. Gross examination performed at [facility], [address] [place] [address] EJL 11/08/2021 9:02:15 PM Date of Report: 11/13/2021 Date of Procedure: 11/08/2021 Date of Receipt: 11/08/2021 Submitted by: Cholo Cuello MD Location: [facility]. Diagnostic interpretation performed at [place] [address]. CLIA Number: [id number] [facility] [place] [place] 10-18-2021 SARS-CoV-2 (COVID-19) RNA SYED+probe Ql (Resp) Detected Abnormal Not Detected [facility] Comment on above: Result Comment: This test result should be correlated with clinical presentations and medical history by a healthcare provider to determine its clinical significance. This assay was performed by a reverse transcriptase real-time polymerase chain reaction (rt PCR) method on the Venmo system. This test has been authorized only for the detection of nucleic acid from SARS-CoV-2, not for any other viruses or pathogens. This test has not been FDA cleared or approved. This test has been authorized by FDA under an Emergency Use Authorization (EUA). This test is only authorized for the duration of time the declaration on that circumstances exist justifying the authorization emergency use of in vitro diagnostic tests for detection and/or diagnosis of COVID-19 infection under section 564 (b) (1) of the Act, 21 U.S.C. 360 bbb-3 (b) (1), unless authorization is terminated or revoked sooner. Performed By: #### 2 [id number] ####[facility] [place] [id number] SARS-CoV-2 (COVID-19) RNA SYED+probe Ql (Unsp spec) Pass Normal Pass [facility] Comment on above: Performed By: #### 2 [id number] ####[place] [address] Specimen source Nom (Unsp spec) Nasal Normal [facility] Comment on above: Performed By: #### 2 [id number] ####[place] [address] ADMITTED TO INTENSIVE CARE UNIT FOR CONDITION OF INTEREST:FIND:PT: Unknown Normal [facility] Comment on above: Performed By: #### 2 [id number] ####[place] [address] EMPLOYED IN A HEALTHCARE SETTING:FIND:PT: YES Normal [facility] Comment on above: Performed By: #### 2 [id number] ####[place] [address] FIRST TEST FOR CONDITION OF INTEREST:FIND:PT: Unknown Normal [facility] Comment on above: Performed By: #### 2 [id number] ####[place] [address] HAS SYMPTOMS RELATED TO CONDITION OF INTEREST:FIND:PT: Unknown Normal [facility] Comment on above: Performed By: #### 2 [id number] ####[place] [address] HOSPITALIZED FOR CONDITION OF INTEREST:FIND:PT: Unknown Normal [facility] Comment on above: Performed By: #### 2 [id number] ####[place] [address] STATUS:FIND:PT: Unknown Normal [facility] Comment on above: Performed By: #### 2 [id number] ####[place] [address] [facility]TING:FIND:PT: Unknown Normal [facility] Comment on above: Performed By: #### 2 [id number] ####[facility] [address] [place] [address] Consent for Treatmenton 10-06 Consent for Treatment .[phone]. 00CD:127 Normal [facility] ED Note-Physicianon 10-17-19 ED Note-Physician Basic Information Time Seen: Danny Aguilera MD 10/06/2021 07:31 Chief Complaint SOB, weak History of Present Illness 66-year-old female presents with a complaint of a vigorous cough and chest soreness. Patient states she became congested 1 week ago and had a negative Covid test at that time. The last 2 days the cough has become far more vigorous. 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 She has had a previous vaginal hysterectomy. She states that she has had some diarrhea in the last 24 hours. She denies any dysuria. Patient is not a smoker. She does have a history of an aortic valve repair done in 2018. Review of Systems A 10 point review of systems is negative except as noted above. Medical and Surgical History: Reviewed and noted Social history: Lives at home Tobacco: Denies Physical Exam Vitals & Measurements T: 36.3 ?C(Oral) HR: 71(Monitored) RR: 18 BP: 145/84 SpO2: 95% HT: 160.02 cm WT: 54.7 kg BMI: 21.48 A thin well-developed 66-year-old female she is alert and oriented her skin is warm to the touch her color is pink on room air. Throughout the entire exam the patient has a vigorous almost exhausting cough that is for the most part nonproductive. There is a midline sternotomy scar. There is a systolic murmur over the precordium. Breath sounds are asymmetric there are tubular breath sounds at the left base. Some diminished air entry at the right base. No wheezing is detected. The abdomen is soft relatively nontender to deep palpation no guarding rebound or masses. Medical Decision Making Patient has not been vaccinated against Covid. With ambulation the patient's pulse oximetry fell to the low 80s. Even at rest the pulse oximetry hovers around 90%. I do feel the patient will benefit from supplemental oxygen. The rapid Covid antigen was negative x2 a PCR is pending. Procalcitonin was not elevated but the CT chest looks like consolidation just in the bases so we will continue treatment for bacterial pneumonia. Assessment/Plan 1. Acute respiratory failure (J96.00: Acute respiratory failure, unspecified whether with hypoxia or hypercapnia) 2. Sepsis (A41.9: Sepsis, unspecified organism) 3. Community acquired pneumonia (J18.9: Pneumonia, unspecified organism) 4. COVID-19 virus infection (U07.1: COVID-19) 5. Abdominal mass (R19.00: Intra-abdominal and pelvic swelling, mass and lump, unspecified site) 6. DVT prophylaxis (Z29.9: Encounter for prophylactic measures, unspecified) Medications Administered Given NS 1000 mL Soln-IV 1,000 mL, 1000 mL, IV NS 1000 mL Soln-IV 1,000 mL, 1000 mL, IV azithromycin additive 500 mg + Sodium Chloride 0.9% intravenous solution 250 mL, IV Piggyback [id number] [F] 1000 mg + Sodium Chloride 0.9% IV Saundra 50 mL Minibag Plus [F] 50 mL, IV Piggyback codeine-promethazine 10 mg-6.25 mg/5 mL Oral Syrup 5 mL, 10 mL, Oral dexamethasone 4 mg/mL Inj 1 mL, 6 mg, IV Push Lovenox 40 mg/0.4 mL SC Saundra, 40 mg, SubCutaneous NS250 [F] 250 mL + [id number] [F] 500 mg, IV Piggyback NS250 [F] 250 mL + [id number] [F] 500 mg, IV Piggyback Sodium Chloride 0.9% intravenous solution 50 mL + ceftriaxone additive 1000 mg, IV Piggyback Sodium Chloride 0.9% IV Saundra 50 mL Minibag Plus [F] 50 mL + [id number] [F] 1000 mg, IV Piggyback Zofran 4 mg/2 mL Injection, 4 mg, IV Push Disposition Plan Patient Discharge Condition Guarded Discharge Disposition Admit to observation Discharge Prescription List Prescriptions No active prescription medications Follow-up With When Contact Information VIVI LIAO 10/23/2021 10:30 AM [facility] [address] [place] [address]- [facility] (1) Additional Instructions: Call physician if symptoms worsen Abraham Gutiérrez Within 1 to [address] [place] [phone] [facility] (1) Additional Instructions: Call for followup appointment. Patient requests to schedule appointment. Call physician if symptoms worsen for lung nodules Justyn Junior Within 5 to 7 days [facility] [address] [place] [address]. [place] [address]- Additional Instructions: Patient requests to schedule appointment. Patient Education Pulmonary Nodule Attestation Critical care time 45 minutes Problem List/Past Medical History Ongoing No qualifying data Historical No qualifying data Procedure/Surgical History AVR - Aortic valve replacement, Excision of vocal cord polyp, Hysterectomy. Medications Inpatient No active inpatient medications Home aspirin 81 mg Chew Tab, 162 mg= 2 tab(s), Oral, Daily Flintstones Multivitamins, 1 tab(s), Chewed, Daily Lasix 20 mg Tab, 20 mg= 1 tab(s), Oral, Daily Allergies No Known Medication Allergies Social History Alcohol - Denies Alcohol Use, 10/06/2021 Substance Abuse - Denies Substance Abuse, 10/06/2021 Tobacco (more content not included)... Normal [facility] Comment on above: Result Comment: Elec tronically Signed By: Vivi MENDEZ, Danny\.br\Date and Time Signed: 10/17/21 08:25 EST HISTORY PHYSICALon 2 HISTORY PHYSICAL HNO ID: [id number] Author: Marva Lyman PA-C Service: ? Author Type: Physician Space Physicist Type: HANDP Filed: 10/18/2021 8:29 AM Note Text: PREANESTHESIA CONSULT CLINIC TELEHEALTH VISIT Patient has been identified by name and date of : Yes This is a virtual visit using [email or web address] video visit. It require patient-provider interaction for the medical decision making as documented below. 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 Patient denies abd pain, trouble swallowing or change in her BM. Hx diverticulosis 2018 without recent flare up. recommended for above surgery. ACTIVE PROBLEM LIST Discharge Planning Issues As (Aortic Stenosis) Atelectasis Postoperative Pain Postoperative Hypertension Fluid Overload Transition of Care Performed With Sharing of Clinical Summary Tachycardia Vocal Cord Polyp Abdominal Mass Pneumonia Due to Infectious Organism Congestive Heart Failure (Hcc) Chronic Cough Diverticulitis PAST MEDICAL HISTORY Diagnosis Date - Aortic stenosis - Bicuspid aortic valve - Mitral valve prolapse PAST SURGICAL HISTORY Procedure Laterality Date - COLONOSCOPY SCREENING 2018 - HYSTERECTOMY - LEFT HEART CATH,PERCUTANEOUS - PAST SURGICAL HISTORY OF 1979 vocal chord polyp removal, second surgery insert plate - SHX AORTIC VALVE REPLACEMENT 2018 #[address] Blood - SLING OPER STRES INCONTINENCE FAMILY HISTORY Problem Relation Age of Onset - Hypertension Mother - Skin Cancer Mother - Cancer Father at 40 from liver cancer - other (healthy) Sister - Skin Cancer Brother Social History Tobacco Use - Smoking status: Never Smoker - Smokeless tobacco: Never Used Substance Use Topics - Alcohol use: Yes Comment: rare - Drug use: No ALLERGIES No Known Allergies MEDICATIONS: Current Outpatient Medications Medication Sig - aspirin, enteric coated (ASPIRIN, ENTERIC COATED) 81 mg EC tablet 162 mg. - furosemide (LASIX) 20 mg tablet Take 20 mg by mouth as needed. - therapeutic multivitamin (THERA VITAMIN) tablet Take 1 tablet by mouth daily with breakfast. Current Facility-Administered Medications Medication Dose Route Frequency - perflutren lipid microspheres 1.3 mL in NaCl (PF) 0.9% 10 mL injection (DEFINITY) INTRAVENOUS DIRECTED PRN - sodium chloride 0.9 % (flush) 10 mL (BD POSIFLUSH) 10 mL INTRAVENOUS DIRECTED PRN COVID VACCINATION STATUS: Not vaccinated, prior infection REVIEW OF SYSTEMS: Pain Assessment: General: No weight loss, malaise or fevers. Neuro: No history of TIA's, stroke, HEADING AND PRIMING TOOL SETTER tumor, impaired sensorium, hemiplegia, paraplegia or quadraplegia. No neurological symptoms or problems. Respiratory: Negative for Asthma Negative for wheezing. Negative for hemoptysis. Negative for sleep apnea. Hx pneumonia 10/06/2021 treated inpatient for 3 days, completed PO antibiotic and chronic cough for [address] Lion last OV Assessment: Patient presents for evaluation of dyspnea and cough. ? The patient has severe prosthetic aortic stenosis. History of previous aortic prosthetic valve placement for bicuspid valve. ? Large left lower quadrant abdominal mass ? History of right vocal cord paralysis. ? Pulmonary function today is normal ? Intermittent coughing for 2 years. Etiology of the coughing seems to be related to her vocal cord problem controlling secretion. ? Despite the fact the patient does not complain of reflux symptoms as a result of the abdominal mass, she may still be having reflux disease which is provoking the cough. I do not think that adding a PPI at this time would be helpful. Patient has used these in the past without success. The patient denies chronic rhinitis or sinus disease. This has been assessed by ENT in the past without evidence of sinus disease. She has also been seen by allergy without evidence of significant allergic rhinitis. ? For now I have prescribed guaifenesin with codeine to suppress the cough at night. She is instructed also to elevate the head of her bed at least 6 inches and follow reflux precautions ? The patient is an ASA 3 physical status classification because of combined morbidities. ? The patient spirometry is normal.She has adequate lung function to tolerate the surgery ? I do not recommend any bronchodilators or steroids during or after the surgery at this time. ? Recommend early ambulation and DVT prophylaxis. Cardiovascular: Negative for Recent SC, CAD Negative for chest pain, orthopnea, PND, dizziness, lightheadedness or syncope. Negative for palpitations or arrhythmia. Negative for h/o DVT/PE (more content not included)... Normal [facility] Coding Summary.on 10-11-2021 Coding Summary. CD:[id number] Gh 0bWw+PGhlYWQ+TM3SAFWoU 64peEIbnY5DX3eXLW5WKSQ DADPZHO0WCQ4nxXM3VRddN 2VybiAv UhnpiBPyLH98AVo6QGY9xZ reHAsukR9wuAGwA4c5MsQw IH64pF89LDjfOBJiGwK6Cp ZpbjsgbWFy F6kcRwUxpMUbMre+PHRhYm xlIHdpZHRoPScxMDAlJyBz gYpyDX9uSx7xMBExRJIuoA xhcHNlOiBj i1ojNJZtGJkxWZ1fzKtmA5 TksLU3IOVwg7l0Qy93mGQ+ ROTfDCX9eFfjBFiqf733Su Yvl3vnFHT5 rBZiQRpvBPU1Z91qv2F0TL PsYKQbBBS2iSB1aS7rcNrp bggrB0NecHLvLiN4JJJ3jW FflW6neYvu ydzlrL4vIvp+C91VNO0RJT PPVD5IQme1H0HrQcorjUJ+ EQ39UIUgJF99yKCgjXMhz1 ffqQb6GcCu OSDrCTX4fMbbEFgrl7OlWH UlL02upMTui9K0TNDaxKqk aOXvJsWajWA8vJ2zMEggwt mqt4ndconu Gwneu2gikp36tP85O22rSJ nwMOVaWDO6DBLtMWQjuSlq aj7heF4eFp6+QSbjc1seb9 xfcUu1KyGl SLIbjoExjTxuNKM3l7JcXh 00F7LwqGxau7HcBdc3dl71 uEMjy0L7gJI7HGixEBZftA 2cRDuiXtU8 FXGjSyGurN89hLTbFRonFs 6ijKbmeEgtKW1rHEJqobtr OYTfhC8iLJJczPJmvJyjRQ 4wNTBpbjtm v302EhHsYXX3COKujAOrL7 YctS7oDdFiKXKfNJOjI2Vy hFXyOKkyZ408OJsdTsA4BJ RemdQkV6Mp PEDvjDqsLtM0z6N4Ne4Vi0 YygacmZOT7OCjmLFAlZgX0 RjCjQfF2Y0IpNct9BHGatZ ydTZ5xW4Ga RQNmfkykscnybMB5SYNtBY VhaE11dDQvINmzSd3wm1F7 w159QRReNBBhmU88Iu9pwD ogMTBwdCBU vF0kccpbj0lhgtmwReJeDH DbPVs0XCe8LCQspIekNkFl OKB6GaS9ERM4fULinF7ayP pitwgapG3v Oyc+M45bcN7kZTK3XZM2zb rnCSGsgwDcEO00HF14S3Tp PjwvdGFibGU+PGRpdiBzdH omXK5kFnPb w1die9PoOTbkA7ZzGRLhTS lhTkh5ATRzUDM5eNY7rI2c LXPvPIaii9J3dIR3X9Jqoa Zuti8nw2bn JHOsFVsvL64egJPhm2R9CC HgqFO4OWSihLcrArRzsN13 Oyc+GLYopUolq6IqFdkuv3 qas1yuzHi9 KuTuMRAnmfOnmCoaROG7s6 OpPp57Q24bNPnsUWOjPLPx OPAgVHPfdQyxld9gnF7jNa 8+PGNvbCB3 jMV0dL3vCPKwQsZ9BWwwN9 87MkTbuSLaSsmzo4kot2ih sAf4CwKwYOHbaiLryVbiCP X9r7UdPf70 W19zALdsWAMaMQRzNPEyMT QkqYrryl7ioO1kSb1+PC9j u5kbda76jX83aDB+PHRkIH C6vTgtKKdo HYBzwI2hAWalJwR7YRVjOd TwcF27dZGbCRbbWq0twVxb kXbgVU6rSFNbwscao810Og Ggz0gnXXZd tSKgKNjfCIC9A75le1F6MW HfOZBlCKQ4gBA0kM6vgVmj bjogbGVmdDsgdmVydGljYW uxDLxjI975 IHRvcDsnPlBhdGllbnQgTm AhLSu4V3TtGbl8EZUxiWyl WB0hxFTyVCkpHu4htYjekX fsQN8uXRIl sefhg868FkFfo8jwZTDxyG FyNLsnTLD0O53gd4U0CDLf XCUcAQN9sQH4dY7hiKcwrm ogbGVmdDsg krVxyXuvPHssBSgaK984VH RvcDsnPkJpcnRoIERhdGU6 RO36GY69oWNkr8C5xTR4M5 BhZGRpbmct ejxluPU2IWVpDEXgsZ92Ht 5xlNrmFx7jNNVtBZW5RUYr yNOoV4FmfC7aQaPhRUUcKM AoF8CubLCk YRrvG663ELrsZtR0QDOngm SuU5GvKCYrbZwfCwU9s4D7 Bs0TT2K2JO62GB12qYZwl5 V7fUD2P8Ya PCWyweolwwradAM1SLSyKH AenL84Ls3bqBqxKq3vDVNg AZJ6YQGzgSDyE8NqrY1lXd AjMDAwMDAw D1OkfPVaCFdfV550QAdhDm I6WSTeniYlY2LkPMHyyRjk EqU6s8N0Gp7DQBz9OU57QK 71rOPlt6S3 pRZ3F5IjVQHkdxoaaymfmP J8SMMnQERyxG74Lz0dtPqe Nc0vEVItKQO5UFJrrXMiG7 IyvE8vVoQw AAInRPUpJ2PzqIKgZBjzB6 16HRykUtY7IPWsygFhS4Su QNEsrQsuOmS3f4A2Fu7IIP TuDI51XFT8 aDW8KN30VL75W9GdNyqsvW FibGU+PHRhYmxlIHdpZHRo RJgvFVMhPkMdbUpmAO8oKv 9yZGVyLWNv mHqjtLMoGpQee1yiPQPkHE byPE5wmWsoU7QrdYA5KFMa o1h5Tt26W62xI5SkdLA+PG GalQR2rFB3 gO9dPkWiFuU2RAqdV280Aq XyaFFqTlzbs1rkt0szgRu4 TnE2QARhwhDgyPsxBFZ2r2 VmLd04X37p IHdpZHRoPSIxNSUiIHZhbG cdrp3ccJ1qKp6+PGNvbCB3 wIB1hN4bOzVkAxC3GAhcZ0 49InRvcCIv Spxjb6oua7ueoCq9LoDbDA XerzKxzGjePWO5p8LmNy58 B4ZazSstk8LnVzz2du68lD Laj4D6wZW8 R4LnFUTuyoflaZOnqBteYT 6dQAZqwhfrLEOthI7mGLNa C4u6NtMmQoA2LMofN8Qjbe O2RDLjwZAh TSfjZAX2C62oe0M0NAPrCK PcFXD2mWT1dN3inCbhmwea bGVmdDsgdmVydGljYWwtYW vzN980BGDi yQloILZwsB4uYYLmwUCtwB ibMD4xEJYbtjpxXbAYLLFA Y0ScFWSFWWVXTLnvhTK+PH ZxTMM5cZhu SYmgWMSyyM3fMNWvG7q6Bo GcTeT9MCbbX5RcSHLnzwxh Wm78qA7rKdEpBzY5MKwvI6 SkmsG2YPGh gFWsVUsfPTA4E93fp7V6LW CoWNYfLMN5wFM3pH0egCed bjogbGVmdDsgdmVydGljYW wzBJxcX243 RYNaoZgyMmF9MsJgYiY3DP S4R4IjOgv0ZKDudLleNX3q gTPaSCqzUz7ggVxkvYzjSJ 4wNTBpbjtw LULqkL9pWVUfoSOfjFumRB 2uOXEexewdg548BnCvHBL5 RWWfeNGnQ0TxqL9fHjVeNK BxFFTdU3Sr oXXrOBidK696SBfaJhR5XH LxqrKwX8KpVWYoaNrhKpS1 e1L8Xf54KiOPVMMbkxslyA Q+PHRkIHN0 oBuoLVftXNBazV1zPPXlB7 r1EkEcYoS7MEuhR2TqAORc brctIr51yI1yQhArUrS7CI fcV1ZqkeO5 TZZvaZXnHFxlPBW1O83uz7 A2GKBsDVOaVGT3nNT8rQ7m bGlnbjogbGVmdDsgdmVydG ljYWwtYWxp S065SMFuiTmuVvKrtWXuKY wvdGQ+DFQvRFL0hRnoSRbw RMAbzH8yMZUaT3c4BsOwXp N8HMtcO8Ne FFMtjaopKb29zK1lDgZeFf K4XNplE1PgrmG4YUDshOPa SGusFQA8M04fd0Z8FVNzST NvKZK7uOG3 bY6kyJkecixbsRVlpXytbb CbcHmxBCuwXYxeY787FKLq qTqzVvltoVD5sFQtaHfluZ Q+DP71xc83 K3JeBmkuIoi1RXHcQXZ5zY M0zY7iWSFzYKdhc4U2xMO3 Y3PyzeFuab0hi1oqDHNtHJ znG59qyYHk s4D9PEIfoYB0DAYwxZibZs MdmI40Cua+FGMirFekc6Sn Flnrf9ulw1vbhBq9NnOcNA IgdmFsaWdu DKS1d3YmAs25Q67tDYwwCO YkIFNnFQHdTLUxaHcizr9x cG5gBl2+KAFbnFO0dMY7zI 4aOcAuXqW0 TVxnT013YnBggUUdOlsbe9 eam6uynTs8ZeStVOFldqAs jAcfKBK8d3PtMt09S9JigG xqk6AyBry5 nf48pBUbh2I4bDB1T3IsRU OkivbrrDPduHsnHQ7eCQKn eqgvKYUpyD7aJXIaX3u9Nv VfFaE4GXjb G4DyhsX8GYVkpPGaRFOyqD AMsL0ephddv1gyrwonQvKg MBPmLHt9QDx9ZCDoeStlIz GlROK1LeM4 LRN7yJQimT4zlEfwlplemY 9wOyc+PTs4f3eqaVCrTW5l hFR1AJ22IQ11dBBes1H6uQ A4B5EfMBVh ctaqmxeasOF1YVIzUQIjdF 11Mi0npZhmGm9sBIBpNAN1 AEMvdRMcO8GbnD5oKbJmBG MuMCEtY0Es jZEuCIlgO157YZniFyK9NH HkrfZeX1IgBIExmTsyCrR5 m1D8Iq4MZS10HV65JX80vQ Dng9M8hVV4 O4OsLMRcjewmeviteJZ6SE TaUYXhaM73Wr2ypWahFc9m CUNjOSQ0RUPtzCSuB5DwvC 9yOiAjMDAw TAIkN8DcbOCaZFgfS270FT ecMuH3AHTqbcMdD2MxZEXo iQycNyR4e6H5Vo9KYl40EE 60CQ60oUKv b1F8aKB0B7UxZGLcefdnls fzgJJ9RMMtDEGokQ51Zn5l zIpmLj3iQTWkLPC6CKWenR SjR3SooG7c FfTxLRNbZZRaT7UgyNOrRY kcI631LEoaLcW2NDGumeEq W3IsBPAabZwbIzY5s3R5Qz 9QRHituxx0 H4AtIsdjjCY+AJ88YYUuCB 76dNYlbAUlz7mngUz5HaEd GBDzUZW2qKifYRmik1NqQK MjB24aeFXa c2U6 (more content not included)... Normal [facility] Auto Diffon 10-08-2021 Basophils/100 WBC (Bld) 0.3 % Normal 0.0-2.0 [facility] Comment on above: Order Comment: Order Added by Discern Expert. Performed By: #### 2 551468, 1710823, 7934362, 8263937, [id number] ####[facility] [address] [place] [address] Basophils/Leukocytes Auto (Bld) [Pure # fraction] 0.0 E9/L Normal 0.0-0.2 [facility] Comment on above: Order Comment: Order Added by Discern Expert. Performed By: #### 2 512786, 6800386, 2420230, 6557318, 78534523 ####[facility] [address] [place] [address] Eosinophils/100 WBC (Bld) 2.0 % Normal 0.0-8.0 [facility] Comment on above: Order Comment: Order Added by Discern Expert. Performed By: #### 2 360743, 2058503, 5226110, 7353797, 49786089 ####[address] [address] Eosinophils/Leukocyte s Auto (Bld) [Pure # fraction] 0.1 E9/L Normal 0.0-0.5 [facility] Comment on above: Order Comment: Order Added by Earl Expert. Performed By: #### 2 629596, 6714095, 9993929, 4975411, 35767770 ####[address] [address] Lymphocytes/100 WBC (Bld) 21.7 % Normal 14.0-50.0 [facility] Comment on above: Order Comment: Order Added by Earl Expert. Performed By: #### 2 209649, 6163060, 3362441, 4880172, [id number] ####[address] [address] Lymphocytes/Leukocyte s Auto (Bld) [Pure # fraction] 1.1 E9/L Normal 1.0-4.0 [facility] Comment on above: Order Comment: Order Added by Discern Expert. Performed By: #### 2 242922, 4396805, 2380796, 2110374, 25681041 ####[address] [address] Monocytes/100 WBC (Bld) 6.4 % Normal 4.0-14.0 [facility] Comment on above: Order Comment: Order Added by Discern Expert. Performed By: #### 2 612191, 0491839, 4552491, 4833346, 21760259 ####[facility] [address] [place] [address] Monocytes/Leukocytes Auto (Bld) [Pure # fraction] 0.3 E9/L Normal 0.2-1.0 [facility] Comment on above: Order Comment: Order Added by Discern Expert. Performed By: #### 2 494789, 5491840, 7403153, 6787253, 02460557 ####[address] [place] [address] Neutrophils/100 WBC (Bld) 69.6 % Normal 36.0-75.0 [facility] Comment on above: Order Comment: Order Added by Discern Expert. Performed By: #### 2 492209, 5890336, 0009461, 8049010, 22659969 ####[facility] [address] [place] [address] Neutrophils/Leukocyte s Auto (Bld) [Pure # fraction] 3.7 E9/L Normal 2.0-7.5 [facility] Comment on above: Order Comment: Order Added by Discern Expert. Performed By: #### 2 858028, 0680058, 3929706, 2154698, 65715769 ####[facility] [address] [place] [address] BMPon 10-08-2021 Creatinine [Mass/Vol] 0.7 mg/dL Normal 0.5-1.3 [facility] Comment on above: Performed By: #### 2 777323, 4282322, 1834011, 6473418, 70573595 ####[facility] [address] [place] [address] Urea nitrogen [Mass/Vol] 16 mg/dL Normal 5-21 [facility] Comment on above: Performed By: #### 2 891784, 3281468, 1730450, 5563722, 42345283 ####[facility] [address] [place] [address] Urea nitrogen/Creatinine [Mass ratio] 23 No Units High 10-20 [facility] Comment on above: Performed By: #### 2 849144, 0689582, 5007599, 4688947, 86139025 ####[facility] [address] [place] [address] Anion gap [Moles/Vol] 10 mmol/L Normal 6-16 [facility] Comment on above: Performed By: #### 2 458009, 7676355, 6916825, 8346018, 29405966 ####[facility] [address] [place] [address] Calcium [Mass/Vol] 8.6 mg/dL Low 8.9-11.1 [facility] Comment on above: Performed By: #### 2 830634, 9239180, 6128895, 7085602, 67488296 ####[facility] [address] [place] [address] Chloride [Moles/Vol] 102 mmol/L Normal 101-111 [facility] Comment on above: Performed By: #### 2 804692, 8284067, 2053268, 0763586, 99267640 ####[facility] [address] [place] [address] CO2 [Moles/Vol] 23 mmol/L Normal 21-31 [facility] Comment on above: Performed By: #### 2 566088, 7344180, 0125830, 2988540, 11014663 ####[facility] [address] [place] [address] Glucose [Mass/Vol] 76 mg/dL Normal 55-199 [facility] Comment on above: Result Comment: If t his glucose result represents a fasting glucose, interpretation should refer to the following reference range: 55-99 mg/dL Performed By: #### 2 514460, 4024899, 4118876, 3979667, 08818619 ####[facility] [address] [place] [address] Potassium [Moles/Vol] 3.4 mmol/L Low 3.5-5.3 [facility] Comment on above: Performed By: #### 2 550637, 4181107, 1384863, 1954636, 52084326 ####[facility] [address] [place] [address] Sodium [Moles/Vol] 132 mmol/L Low 135-145 [facility] Comment on above: Performed By: #### 2 988361, 2930457, 3469008, 5407214, 69137753 ####[address] [address] CBC w/ Auto Diffon Erythrocyte distribution width (RBC) [Ratio] 13.5 % Normal 10.9-14.2 [facility] Comment on above: Performed By: #### 2 301202, 8466472, 3815221, 0626296, 59419177 ####[address] [address] Hematocrit (Bld) [Volume fraction] 35.1 % Normal 34.0-46.0 [facility] Comment on above: Performed By: #### 2 256151, 0206665, 5407533, 9688454, 40288768 ####[address] [address] Hemoglobin (Bld) [Mass/Vol] 12.0 g/dL Normal 12.0-16.0 [facility] Comment on above: Performed By: #### 2 310905, 3406469, 1431895, 1393861, 40385506 ####[address] [place] [address] MCH (RBC) [Entitic mass] 29.9 pg Normal 27.0-34.0 [facility] Comment on above: Performed By: #### 2 499258, 7312597, 3594464, 6253482, 84509998 ####[facility] [address] [place] [address] MCHC (RBC) [Mass/Vol] 34.1 g/dL Normal 31.4-36.0 [facility] Comment on above: Performed By: #### 2 125143, 9832911, 7530599, 7103458, 61711554 ####[address] [place] [address] MCV (RBC) [Entitic vol] 87.6 fL Normal 80.0-100.0 [facility] Comment on above: Performed By: #### 2 639166, 9137425, 5222136, 4847546, 87975528 ####[address] [address] Platelet mean volume (Bld) [Entitic vol] 6.9 fL Normal 6.4-10.8 [facility] Comment on above: Performed By: #### 2 087847, 6384693, 5797448, 6577257, 02820294 ####[address] [address] Platelets (Bld) [#/Vol] 196.0 E9/L Normal 150.0-500.0 [facility] Comment on above: Performed By: #### 2 894668, 4571534, 3293526, 2872193, 46095131 ####[address] [address] RBC (Bld) [#/Vol] 4.0 E12/L Low 4.3-5.9 [facility] Comment on above: Performed By: #### 2 968109, 1072492, 2417847, 9509736, 98636120 ####[address] [address] WBC corrected for nucl RBC Auto (Bld) [#/Vol] 5.3 E9/L Normal 4.0-11.0 [facility] Comment on above: Performed By: #### 2 828149, 6117817, 2665733, 8952514, 71953295 ####[address] [address] Coding Summary.on 10-08-2021 Coding Summary. CD:[id number] Gh 0bWw+PGhlYWQ+YK2EZBGwS 04cfWNxnQ9FB1iVIG4CUIA CRBSYMI2KDD0cbMH7QUeoZ 2VybiAv NyxisGBtEQ92KTk7IBI1uL wlMBepkH4fpVJqI8o8XvCy UU69gE45XFkgAGWdThN6Mp ZpbjsgbWFy E5svQjOsbNSoGcz+PHRhYm xlIHdpZHRoPScxMDAlJyBz nKszWO4aVt3ySOCdQPSamW xhcHNlOiBj r6tcQEMsRKbyYH6tcMowZ5 BrkAN3CKVwg1c0Xh02sUN+ EQHuPBQ5xBllXTiae296Jr Ojy5qyCIG1 jJUjOJdjCAF8H88in5M1SZ HoLJQvLKM7cCG2nE6iuRcg wkniN0XgcKHsXvL8WVS9hK VyyZ4joNfk ywwbqS5aFxc+B61IJS3WDD GWHF4OEwv2V6EwJtoafJU+ YK33IFReUH24lSLmwTJeq9 pdgLe7KhFg TNCgTEV7kMfkAGdev9GxYS ArK80mkWKdo9H9HQJnfPjj oFAfDiEsyMW5kI4lBBxjun gdw6qvwckf Ezfho3rxqo58oZ25E45cNM tgAEPgIRV1FAWoPUYnlKpw ur6npQ1pAo9+CZbhw8rkq6 bneYw8OzTm XACubdZopShnLLZ2j8VmJd 81S0RutEolk5GiNrr7vn45 pFJfc8I3qGZ7DZikGADmzV 0aYIioBkH5 BIMnOkXpjG91oHUxNKmoUh 4yvBestVxpGZ9iRHPlhxjj NLJhoV3vGIRffAJijBzcKJ 4wNTBpbjtm y462RgGxYUU3QPIwiQQmO4 GikF3tXkCgXNNmKVMeF2Nc cRAbEKvwO112MMucNkA3LL LdkmMoS7Xu MNGwcUohWdH0r6F6El3Cs0 WydubeYEQ4MZdqWADhAjOj YdAgDfP8V6WgMsi2OHSlpP nyIL4gI5Cx LIVklhpyqdnrmZC9IZXyVH GxdI85bHDpHSfkOf5gm3Y9 o476ZAOuQRHjsP78Kr4ktM ogMTBwdCBU tX7jrtwqp7wfwafkBiCyNL UsZZd5HWl4CGXdyOgzWrKi FZN7TtJ1QBO3gSXztA0zxC vobtxexQ6g Oyc+Z19aaF4fNSC9VRE3rc czUJHrzrLxIP66PR68Y2Nr PjwvdGFibGU+PGRpdiBzdH aqUX3lLiBp m6atn3NyLWyzQ2FmNRNoRH pzTtl1TAOxJTF6oCV3oU0s RZNcKDfgf4I7dFD9O5Dupl Jgaf2nh6zy CBPoZNwtW60unYHpv3Y9YU BhtFC1WCZspMrrKjKffY82 Oyc+LFGhrMqnt5NnOuplg3 eoy8yfcUy7 LhRfLQCblqJjfYekPIE3g5 HzOi58A84jIBwcGQOkTJGi BQZySZOpoRxisa3ixE0rNc 8+PGNvbCB3 xQN5jE1sNNXaWbM8SFilL6 34HdMbqBKjXvgpt3uff1bj kDg1RfMqDBTrvqYbwQblOE A8l0NmMc72 T30pAGbzBFZuVCAxZWFaWX HmdDwwok3ouX5mXw9+PC9j x9stnc53bB99aLN+PHRkIH Q3xDicUSdx HJJdzB7gRAurUtP5UXRdYm MdfN04dAYnYXufYt9cvPph bNauQL7kFHWzckjwx583Fx Jxk2euLYDs aKFzGFlzJJX1F34vp6P3TC VvNRXjYDA0bFP0sN3zhFmm bjogbGVmdDsgdmVydGljYW kzAPcoE887 IHRvcDsnPlBhdGllbnQgTm LfWZy4V7YtMef5DYQtpYpu OE9slRMaOLqkKs8saYsooM qyBR4uYYIy wpvuw221DcRij3usYSNltQ NfKQzdZVP3W47ms2T9FJHx CROjAPL3fOI8dD2zrSxulk ogbGVmdDsg lmQklGczDGybGYqkD270WX RvcDsnPkJpcnRoIERhdGU6 PH45JB27iZVhz4L1oXW5P6 BhZGRpbmct msihjDO3DOZdMLTrfH38Dt 6uaHaoAu0rUBTkRCG7WFVz lAXeG1PtrN2gIhIxLEJnXP GnB7CmiGXh OMljJ121UHxtNgR6ANPmrc IpR6VqWPCdrSwzNbY5s5D7 Gp8CO8T0ZR68HZ30nKVds1 I5yIZ9Y1Uk BLCbvdhvhqlqqRQ4SPYqOQ SbhP38Gy6zwAtdYy9iIWCf KPK7ZLZqdEJyO7UsjO8lDi AjMDAwMDAw Z3XacIYzBQxtG742QIuoRu K9VLWiioVpE6UaVITccGdh YsX3n7S4Mp0UOMb1HV61RD 36yVUtj1T7 dAV4H0AnPAWjzbgsxbkqdA S7WZLwFRFrcX33Za3bfXoq Lc0eGJUgUQM9YFVuxWMgL2 YjdD0hYjGl FVTkAXQhO4BgcDWcRPpzT9 96PQcdMuH1YBYiijFeH9Su KROtfDjdWvO3s0J7Lr7POR FwSU44RGM6 lSH4RM24RD68J8VvCqbdfH FibGU+PHRhYmxlIHdpZHRo GGjuEBQaIcAzyLucSM9gSc 9yZGVyLWNv gSxrnJJkKwNvs1uqGAHuSY waEJ1szVbjJ1DlqMN9DGIg d5t0Xy40I96cT9TxbQN+PG YwkSX0gYI5 uF3jImKbUvJ6PVwiM737Wy UxaWIaFuwww0fwa3rrvVs8 TsD9LTKphkCrjUeiAIN2e8 EkPi02J41u IHdpZHRoPSIxNSUiIHZhbG xezy4jcH0lSy5+PGNvbCB3 zCJ4cR2hEkXpTaL7VWrwY8 49InRvcCIv Nmkul6efl9vjcRo9AjSkZA EemfPhuGhdUXO0j9ZpXy13 I0MxiKpvq7HjSjr1mh13wV Xsj9U2iEY4 U8ChLXSnxhsbdISzxWkqPI 8nKRRtfdqiYUXecC1fQJVc M6n4MgJuGjA3FPgiA9Skaj L0TVIbjJSf XJqfASL4J18yr9T2OQXiRE HfVGP3iEQ0mH0bvHzuovlr bGVmdDsgdmVydGljYWwtYW ddO398UHEz aFhvUVMueK0oLVJigFTsgX peZP7zKTGimxanLlTOTEDC T4BlMINWNWCJORqikII+PH UnGKI1uDvz RSlmLZPygQ3mRAXpH1l6Nu KpVsE9TNckQ6IvTCUqhhfy Vd55jN4kIsHlHvE4WWjrN3 JeovJ1QXFl sNOnVYwnDSP0W19yu3D6ME ArCRGqMLU5yNS5xN1hhEgf bjogbGVmdDsgdmVydGljYW xuQJtmJ690 DFOoqCjuMqX3CdEjBjC2XJ F2I5JqJje1YDIkmYnqQW1w gYHcNOatZd8xgSdhsTcaTZ 4wNTBpbjtw MTUtrH8oKITvgPVemQmbCN 3dRDSuivwje712UuWaZMX4 LIPoqFCqV6HdoS3mCaYzNM TiEDYhA0Jb mLQiIXthO647GEyoJiY8CY KirdIlU5TeLDZnxIbaFzN0 s9E5Ly53FjXNKOHddedzlR Q+PHRkIHN0 hVmzVZtjAAZyuC8uKASxQ6 l2JzRpKfZ0OSygT6VyBYLf asqsWb73zY3yWtRhMnT6GY vdO0RmgqW7 HBYlsHRwUKlwAKB2Q30kv8 P7KCUqODRpNIV7cSL2sQ7c bGlnbjogbGVmdDsgdmVydG ljYWwtYWxp O787OALwcQygOmDnqDNoKZ wvdGQ+JMTpWZB5eUriTJwb KWGdwT9tJWHtR3p5UqWcMp D0KWwhG4Mv IJUrlspgWl61aA5fAfYbDd V9UZozL7KhluM6LTLufZAa ZRsyALN7A39ny5X0IWWaLN HqVPD2wDT9 qK4bkTwukfvtpPZuoAkjst WfiIylNXodMPdaO050VOVi mNuhKsynSgPGcx0kLM0mRd wvdGQ+PC90 br83A7DsApdvQqo3VNFzSW S7pXY6kW6vCHVdCJvij9K9 lXV9B4NhirEvld9xz6xeLE FcISteY53h eZXkv7V6HUMjiNR4XPZwkJ qvNiNumX49Xfk+PGNvbGdy u6WzPuczr3xhu1oteHu4Tg MwJSIgdmFs xUemBER1z0MeYe22M80yPS dpZHRoPSIzMCUiIHZhbGln og1gvV9rQe1+EMEpmDZ8uG N8pX9aZxLb VfP9JQqzP519EgEqcTWqQr koi9ksw5qepIy4GrSjQVFc isFobFphXNV7f3ViJf43H9 TvfVmaw6Uq Xnb5jc89bORbk2K2dZJ2O8 PqWXLgljecxGXlzOwbHJ6g KTVsgcvbGEWvcR0fSJSdL6 u4RhLaIvH2 VPlcX5UikpO4GREsyCKiNA RgqAOUlF3lhrvyp3cimsqv MnLzOSWzRPu4LSl8QIAsjF duOiBsZWZ0 ZgF0TPN0rVNcwF8ynZepxj qnvN0jIqt+KWk6c6twdPOh RY3hwFW9KN32CN31nWVbi0 N9mDV8Y9Ot XLKqzrxukdfskYW3WEMzVA NukX05Kl4dpVktAu5aKGUa AUZ0HTGyqVGbS7DdvK4hVc AjMDAwMDAw B9BjiIMpONmrI345PTrtFi J2AEMvvzGiL3YoCGHxyBgt DcN5a0Z5Aa6MHD95OX09NB 46wVTvy0Y1 pPC4H7OvFINupwuyzvaybX H6BNDnEPRqrM07Kw4lsGok Gk2iLCTbVGE6ZKNfuZVuI2 IzxU1sPlPp QPQpBZRbP7AfqVQePZouY4 83UAzeMdR0NSXvwzHkK5Cx PQUqnMfjNqS2j4J3Sa0FDk 22JL13VC33 pGXbp7Y4iPN3Q8PpBNXdur uqmwayuMF1HAZuYJGlbN61 Me3ubFbyZm9zEGKnGXX6VL HxgXZsT0Zr bV7zZiXcBTTkOPPmK9GldO NwWQxrB861MComPxV6QVRq ugPnW1JoXAHrnUbfQgH3i1 L9Vo1EGXql ykj8W0KhIpyrbJQ+PC90YW JxIN28yYOxxWCjf2hubXs7 SjYsTBBnZCY9qXfxQQswv9 SwRUCcR08c bGFw (more content not included)... Normal [facility] Discharge Instructionson Discharge Instructions [id number] Normal [facility] Inpatient Clinical Summaryon 10-08-2021 Inpatient Clinical Summary [address] [address] Clinical Summary Person Information: Name: SWATHI VALLADARES Age: 66 Years : 1955 Sex: Female PCP: VIVI LIAO MD Marital Status: Single Race: White Ethnicity: Non- or Language: Burmese Visit Id: Visit Reason: Abdominal pain; Cough; Shortness of breath; PNEUMONIA Speciality: Acuity: Enc Type: Inpatient Med Service: Medical Arrival: 10/06/2021 07:06:31 Discharge: Dispo Type: Admitted as IP to this Hosp Address: [address] [place], [place] [address] [phone] Provider Notes: Diagnosis: 1:Acute respiratory failure; 2:Sepsis; 3:Community acquired pneumonia; 4:COVID-19 virus infection; 5:Abdominal mass; 6:DVT prophylaxis Problems No Problems Documented Smoking Status: Never Smoker Functional Status: Sensory Deficits: History of Falls: Mobility Assistance Prior to Admission: Independent ADLs: Independent Current Level of Assistance for Self-Care/Mobility: Cognitive Status: Oriented x 3 Allergies No Known Medication Allergies Measurements: Height: 160.02 cm Weight: 54.7 kg Blood Pressure: 145 mmHg / 84 mmHg BMI: 21.48 kg/m2 Procedures Excision of vocal cord polyp Hysterectomy AVR - Aortic valve replacement Immunizations No Immunizations Documented This Visit Final Med List: amoxicillin-clavulanat e (amoxicillin-clavulana te 250 mg-62.5 mg/5 mL Oral Liq 150 mL) 10 Milliliter By Mouth every 8 hours for 5 Days. Refills: 0. aspirin (aspirin 81 mg Chew Tab) 2 Tablets By Mouth every day. furosemide (Lasix 20 mg Tab) 1 Tablets By Mouth every day. PRN for leg swelling. multivitamin (Flintstones Multivitamins) 1 Tablets Chewed every day. Care Team Members: Attending Physician: Galileo West MD Consulting Physician: Kenji Junior DO, MD, Abraham Mackay Referring Physician: Follow up: With: Address: When: Justyn Junior [facility], [address] [place] [address] Within 5 to 7 days Comments: No answer at this office. Left message. With: Address: When: VIVI LIAO [address] [place], [place] [id number] Business (1) 10/23/2021 10:30 AM Comments: Call physician if symptoms worsen With: Address: When: Abraham Gutiérrez [address] [place], [place] [phone] [facility] (1) Within 1 to 2 weeks Comments: Call for followup appointment Call physician if symptoms worsen for lung nodules Patient Education Information: Pulmonary Nodule Normal [facility] Inpatient Patient Summaryon 10-08-2021 Inpatient Patient Summary [place] [id number] Patient Discharge Instructions PERSON INFORMATION Name: SWATHI VALLADARES Date of : 1955 Current Date: 10/08/2021 11:43:48 PHYSICIANS Admitting Physician: Galileo West MD Primary Care Physician: VIVI LIAO MD PCP Comment: Discharge Diagnosis: 1:Acute respiratory failure; 2:Sepsis; 3:Community acquired pneumonia; 4:COVID-19 virus infection; 5:Abdominal mass; 6:DVT prophylaxis Condition at Discharge: Stable SWATHI VALLADARES has been given the following list of follow-up instructions, prescriptions, and patient education materials: PATIENT FOLLOW-UP INFORMATION Diet: Regular, Low Sodium- 2000 mg Discharge Activity: Discharge Restrictions: No restrictions Wound Care Instructions: Remove Your Dressing In Days Call Your Doctor For: IF UNABLE TO CONTACT YOUR PHYSICIAN AND YOU FEEL IT IS AN EMERGENCY, GO TO THE NEAREST EMERGENCY ROOM OR CALL 911 Home Treatment: Devices/Equipment: Special Services: Additional Instructions: Primary Care Physician to provide the following pending test results: None Follow up: With: Address: When: Justyn Junior [facility], [address] [place] [id number] Within 5 to 7 days Comments: No answer at this office. Left message. With: Address: When: VIVI LIAO [address] [place] [address] [facility] (1) 10/23/2021 10:30 AM Comments: Call physician if symptoms worsen With: Address: When: Abraham Gutiérrez [address] [place] [phone] Business (1) Within 1 to 2 weeks Comments: Call for followup appointment Call physician if symptoms worsen for lung nodules In the event that this physician does not participate in your insurance network, please consult with your insurance company to find a nearby participating provider. Comment: NUBIA Meza CHERYL, have received the attached patient education materials/instructions and have verbalized understanding: Patient Signature Date Clinican/Nurse Signature ___ Date HERE ARE THE MEDICATION CHANGES THAT OCCURRED DURING YOUR HOSPITAL STAY New Medications [facility] [address] [facility] [address] [place], [place] [id number], [phone] amoxicillin-clavulanat e (amoxicillin-clavulana te 250 mg-62.5 mg/5 mL Oral Liq 150 mL) 10 Milliliter By Mouth every 8 hours for 5 Days. Refills: 0. Last Dose: ___Next Dose: ___ Medications to Continue with No Changes Other Medications aspirin (aspirin 81 mg Chew Tab) 2 Tablets By Mouth every day. Last Dose: ___Next Dose: ___ furosemide (Lasix 20 mg Tab) 1 Tablets By Mouth every day. PRN for leg swelling. Last Dose: ___Next Dose: ___ multivitamin (Flintstones Multivitamins) 1 Tablets Chewed every day. Last Dose: ___Next Dose: ___ Comment: MEDICATION LIST PROVIDED FOR YOU IS A LIST OF YOUR CURRENT MEDICATIONS. PLEASE CARRY THIS WITH YOU AT ALL TIMES. amoxicillin-clavulanat e (amoxicillin-clavulana te 250 mg-62.5 mg/5 mL Oral Liq 150 mL) 10 Milliliter By Mouth every 8 hours for 5 Days. Refills: 0. aspirin (aspirin 81 mg Chew Tab) 2 Tablets By Mouth every day. furosemide (Lasix 20 mg Tab) 1 Tablets By Mouth every day. PRN for leg swelling. multivitamin (Flintstones Multivitamins) 1 Tablets Chewed every day. Pharmacy Information: Brandan Armas Comment: PATIENT EDUCATION INFORMATION Instructions: Pulmonary Nodule A pulmonary nodule is a small, round growth of tissue in the lung. It is sometimes referred to as a shadow or spot on the lung. Nodules range in size from less than 1/5 of an inch (4 mm) to a little bigger than an inch (30 mm). Pulmonary nodules can be either noncancerous (benign) or cancerous (malignant). Most are noncancerous. Smaller nodules in people who do not smoke and do not have any other risk factors for lung cancer are more likely to be noncancerous. Larger, irregular nodules in people who smoke or who have a strong family history of lung cancer are more likely to be cancerous. What are the causes? This condition may be caused by: ? A bacterial, fungal, or viral infection, such as tuberculosis. The infection is usually an old and inactive one. ? A noncancerous mass of tissue. ? Inflammation from conditions such as rheumatoid arthritis. ? Abnormal blood vessels in the lungs. ? Cancerous tissue, such as lung cancer or a cancer in another part of the body that has spread to the lung. What are the signs or symptoms? This condition usually does not cause symptoms. If symptoms appear, they are usually related to the underlying cause. For example, if the con (more content not included)... Normal [facility] Interdisciplinary Note - Soc ial Workeron 10-08-2021 Interdisciplinary Note - Tobacco Sampler System generated consult for advanced directives received. This SW attempted to contact patient without success. SW will remain available. Normal [facility] Magnesiumon 10-08-2021 Magnesium [Mass/Vol] 1.8 mg/dL Normal 1.3-2.[address] [facility] Comment on above: Performed By: #### 2 [id number], [id number], [id number], [id number], [id number] ####[facility] [address] [place] [address] Message from Medicareon Message from Medicare [id number]#1. 00CD:127 Normal [facility] Monitor Recordon 10-08-2021 Monitor Record [id number]#1. 00CD:127 Normal [facility] eGFRon 10-08-2021 GFR/1.73 sq M.predicted among blacks MDRD (S/P/Bld) [Vol rate/Area] mL/min/{1.73_m2} Normal >=59 [facility] Comment on above: Order Comment: Order added by Discern Expert. Result Comment: eGFR is race adjusted. AA=. Performed By: #### 2 [id number], [id number], 4664209, [id number], [id number] ####[facility] [address] [place] [address] GFR/1.73 sq M.predicted among non-blacks MDRD (S/P/Bld) [Vol rate/Area] mL/min/{1.73_m2} Normal >=59 [facility] Comment on above: Order Comment: Order added by Discern Expert. Result Comment: Biotechnician landon kidney disease could be indicated at eGFR's of less than 60 mL/min/1.73m2. Kidney failure is indicated at less than 15 mL/min/1.73m2. Performed By: #### 2 [id number], [id number], [id number], [id number], [id number] ####[facility] [address] [place] [address] COVID-19 (MC)on 10-07-2021 SARS-CoV-2 (COVID-19) RNA SYED+probe Ql (Resp) Not detected Normal Not Detected [facility] Comment on above: Result Comment: This test result should be correlated with clinical presentations and medical history by a healthcare provider to determine its clinical significance. This assay was performed by a reverse transcriptase real-time polymerase chain reaction (rt PCR) method on the Venmo system. This test has been authorized only for the detection of nucleic acid from SARS-CoV-2, not for any other viruses or pathogens. This test has not been FDA cleared or approved. This test has been authorized by FDA under an Emergency Use Authorization (EUA). This test is only authorized for the duration of time the declaration on that circumstances exist justifying the authorization emergency use of in vitro diagnostic tests for detection and/or diagnosis of COVID-19 infection under section 564 (b) (1) of the Act, 21 U.S.C. 360 bbb-3 (b) (1), unless authorization is terminated or revoked sooner. Performed By: #### 2 [id number] ####[facility] [address] [place] [address] SARS-CoV-2 (COVID-19) RNA SYED+probe Ql (Unsp spec) Pass Normal Pass [facility] Comment on above: Performed By: #### 2 [id number] ####[address] [place] [address] Specimen source Nom (Unsp spec) Nasal Normal [facility] Comment on above: Performed By: #### 2 [id number] ####[facility] [address] [place] [address] ADMITTED TO INTENSIVE CARE UNIT FOR CONDITION OF INTEREST:FIND:PT: NO Normal [facility] Comment on above: Performed By: #### 2 [id number] ####[place] [address] EMPLOYED IN A HEALTHCARE SETTING:FIND:PT: YES Normal [facility] Comment on above: Performed By: #### 2 [id number] ####[place] [address] FIRST TEST FOR CONDITION OF INTEREST:FIND:PT: NO Normal [facility] Comment on above: Performed By: #### 2 [id number] ####[place] [address] HAS SYMPTOMS RELATED TO CONDITION OF INTEREST:FIND:PT: YES Normal [facility] Comment on above: Performed By: #### 2 [id number] ####[place] [address] HOSPITALIZED FOR CONDITION OF INTEREST:FIND:PT: YES Normal [facility] Comment on above: Performed By: #### 2 [id number] ####[place] [address] STATUS:FIND:PT: NO Normal [facility] Comment on above: Performed By: #### 2 [id number] ####[place] [address] [facility]TING:FIND:PT: NO Normal [facility] Comment on above: Performed By: #### 2 [id number] ####[place] [address] Monitor Recordon 10-07-2021 Monitor Record [id number]#1. 00CD:127 Normal [facility] Monitor Record [id number]#1. 00CD:127 Normal [facility] Monitor Record [id number]#1. 00CD:127 Normal [facility] Oncology Progress Noteon Oncology Progress Note Patient: SWATHI VALLADARES Age: 66 years Sex: Female : 1955 Associated Diagnoses: None Author: Sandi Justyn ALMAZAN Chief Complaint 10/06/2021 15:26 EST SOB, weak 10/06/2021 7:12 EST Pt has had cold since the weekend and getting worse. Cough, SOB. Started with abdominal pain last night. RUQ pain that radiates to R flank. Was diagnosed with tumor in August. History of Present Illness 66 year old female with history AVR in [address] Woodall. 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 Jauregui, not seen in years. She recently has noted abodminal mass, early satiety. Had CT scan through Dr. 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 referred to Dr. Judd and plan EUS endoscopy and biopsy through stomach on 10/18. 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 Admitted for short of breath. So far covid negative. CT shows no PE but bibasilar infiltrates and two lung nodules. She is breathing much better. Review of Systems Constitutional: Sweats, Weakness, Fatigue, Decreased activity, No fever. Eye: Negative. Ear/Nose/Mouth/Throat: Negative. Respiratory: Shortness of breath, Cough, Sputum production. Cardiovascular: Negative. Gastrointestinal: Nausea, Abdominal pain. Genitourinary: Negative. Hematology/Lymphatics: Negative. Endocrine: Negative. Immunologic: Negative. Musculoskeletal: Negative. Integumentary: Negative. Neurologic: Negative. Psychiatric: Negative. All other systems are negative Health Status Allergies: Allergic Reactions (Selected) No Known Medication Allergies Current medications: Home Medications (3) Active aspirin 81 mg Chew Tab 162 mg = 2 tab(s), Oral, Daily Flintstones Multivitamins 1 tab(s), Chewed, Daily Lasix 20 mg Tab 20 mg = 1 tab(s), Oral, Daily , Medications (11) Active Scheduled: (3) azithromycin + Sodium Chloride 0.9% 250 mL 500 mg 1 EA, IV Piggyback, Daily ceftriaxone + Sodium Chloride 0.9% Minibag 50 mL 1,000 mg 1 EA, IV Piggyback, Daily enoxaparin 40 mg/0.4 mL SC Saundra [F] 40 mg 0.4 mL, SubCutaneous, Daily Continuous: (1) Sodium Chloride 0.9% 1,000 mL 1,000 mL, IV, 100 mL/hr PRN: (7) acetaminophen 325 mg Tab UD [F] 650 mg 2 tab(s), Oral, q6hr Al hydroxide/Mg hydroxide/simethicone 200 mg-200 mg-20 mg/5 mL Oral Susp 30 mL [F] 30 mL, Oral, q6hr albuterol 90 mcg/inh Aero 6.7 GM [F] 180 mcg 2 puff(s), Inhalation, q4hr ibuprofen 800 mg Tab [F] 800 mg 1 tab(s), Oral, TID magnesium hydroxide 8% Oral Susp 30 mL [F] 30 mL, Oral, q6hr ondansetron 2 mg/mL Inj [F] 4 mg 2 mL, IV Push, q6hr zolpidem 5 mg Tab [F] 5 mg 1 tab(s), Oral, Bedtime Problem list: No problem items selected or recorded. Histories Past Medical History: No active or resolved past medical history items have been selected or recorded. Family History: Liver cancer Father Procedure history: AVR - Aortic valve replacement (5272218490). Excision of vocal cord polyp ([id number]). Hysterectomy ([id number]). Social History Social & Psychosocial Habits Alcohol 10/06/2021 Risk Assessment: Denies Alcohol Use Substance Abuse 10/06/2021 Risk Assessment: Denies Substance Abuse Tobacco 10/06/2021 Risk Assessment: Denies Tobacco Use . Physical Examination Vital Signs 10/07/2021 9:00 EST Hourly Rounding Yes Promise to Return Yes 10/07/2021 8:39 EST SpO2 98 % 10/07/2021 8:21 EST Hourly Rounding Yes Promise to Return Yes 10/07/2021 7:18 EST Temperature Oral 36.6 DegC Heart Rate Monitored 66 bpm Respiratory Rate 17 br/min Systolic Blood Pressure 114 mmHg Diastolic Blood Pressure 62 mmHg Blood Pressure Location Left arm Mean Arterial Pressure, Monitered 79 mmHg SpO2 98 % BP/Pulse Patient Position Supine 10/07/2021 7:00 EST Hourly Rounding Yes Promise to Return Yes 10/07/2021 6:00 EST Hourly Rounding Yes Promise to Return Yes 10/07/2021 5:00 EST Hourly Rounding Yes Promise to Return Yes 10/07/2021 4:00 EST Temperature Oral 36.4 DegC Heart Rate Monitored 75 bpm Systolic Blood Pressure 114 mmHg Diastolic Blood Pressure 58 mmHg LOW Blood Pressure Location Left arm Mean Arterial Pressure, Cuff 77 mmHg Hourly Rounding Yes Promise to Return Yes SpO2 97 % BP/Pulse Patient Position Sitting 10/07/2021 3:00 EST Hourly Rounding Yes Promise to Return Yes 10/07/2021 2:49 EST Hourly Rounding Yes Hourly Rounding Yes Promise to Return Yes 10/07/2021 1:00 EST Hourly Rounding Yes Promise to Return Yes 10/07/2021 0:57 EST Hourly Rounding Yes Promise to Return Yes 10/06/2021 23:00 EST Hourly Rounding Yes Promise to Return Yes 10/06/2021 22:11 EST Hourly Rounding Yes Promise to Return Yes 10/06/2021 21:00 EST Hourly Rounding Yes Promise to Return Yes 1 (more content not included)... Normal [facility] Progress Note-Physicianon Progress Note-Physician Objective Vitals & Measurements T: 36.6 ?C(Oral) TMIN: 36.4 ?C(Oral) TMAX: 36.8 ?C(Oral) HR: 66(Monitored) RR: 17 BP: 114/62 SpO2: 98% WT: 55 kg Intake & Output This visit (24 hour periods starting at 07:00 EST) 10/07/21 * 10/06/21 10/05/21 Total Summary Intake mL -- 313.5 -- Output mL -- 650 -- Fluid Balance -- -336.5 -- Intake (5) Sodium Chloride 0.9%, azithromycin mL -- 250 -- Sodium Chloride 0.9%, ceftriaxone mL -- 50 -- codeine-promethazine mL -- 10 -- dexamethasone mL -- 1.5 -- ondansetron mL -- 2 -- Total -- 313.5 -- Output (1) Urine Voided mL -- 650 -- Total -- 650 -- Counts (0) * This column has not completed the indicated time period. 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 Acute respiratory failure (J96.00: Acute respiratory failure, unspecified whether with hypoxia or hypercapnia) 2. Sepsis (A41.9: Sepsis, unspecified organism) 3. Community acquired pneumonia (J18.9: Pneumonia, unspecified organism) 4. COVID-19 virus infection (U07.1: COVID-19) 5. Abdominal mass (R19.00: Intra-abdominal and pelvic swelling, mass and lump, unspecified site) 6. DVT prophylaxis (Z29.9: Encounter for prophylactic measures, unspecified) Orders: acetaminophen, 650 mg = 2 tab(s), Tab, Oral, q6hr PRN Pain, Routine, Start date 10/06/21 14:35:00 EST, 10/06/21 14:35:00 EST Al hydroxide/Mg hydroxide/simethicone, 30 mL, Susp-Oral, Oral, q6hr PRN Indigestion, STAT, Start date 10/06/21 14:35:00 EST albuterol, 180 mcg, 2 puff(s), Aerosol, Inhalation, q4hr PRN Shortness of breath or wheezing, STAT, Start date 10/06/21 14:40:00 EST, COVID PATIENTS ONLY azithromycin + Sodium Chloride 0.9% intravenous solution 250 mL, 500 mg = 1 EA, Injection, IV Piggyback, Daily, Routine, Start date 10/07/21 9:00:00 EST, 250 mL/hr, Infuse over 60 minute(s) ceftriaxone + Sodium Chloride 0.9% intravenous solution 50 mL, 1,000 mg = 1 EA, Injection, IV Piggyback, Daily, Routine, Start date 10/07/21 9:00:00 EST, 100 mL/hr, Infuse over 30 minute(s) dexamethasone, 6 mg = 1.5 mL, Injection, IV Push, Once, Stop date 10/06/21 15:00:00 EST, Routine, Start date 10/06/21 15:00:00 EST, 10/06/21 14:46:00 EST enoxaparin, 40 mg = 0.4 mL, Injection, SubCutaneous, Daily, Routine, Start date 10/07/21 9:00:00 EST, 10/06/21 14:35:00 EST ibuprofen, 800 mg = 1 tab(s), Tab, Oral, TID PRN Pain, Routine, Start date 10/06/21 14:35:00 EST, 10/06/21 14:35:00 EST magnesium hydroxide, 30 mL, Susp-Oral, Oral, q6hr PRN Constipation, STAT, Start date 10/06/21 14:35:00 EST ondansetron, 4 mg = 2 mL, Injection, IV Push, q6hr PRN Nausea, Routine, Start date 10/06/21 14:35:00 EST, 10/06/21 14:35:00 EST Sodium Chloride 0.9% intravenous solution 1,000 mL, 1,000 mL, IV, 100 mL/hr, Routine, Start date 10/06/21 14:35:00 EST, 10 hour(s), Total volume (mL): 1,000, 52.3 kg, 1.52, m2 zolpidem, 5 mg = 1 tab(s), Tab, Oral, Bedtime PRN Sleep, Routine, Start date 10/06/21 14:35:00 EST Cardiac Monitoring Consult to Hematology/Oncology Consult to Pulmonology [place] [place] Elevate Head of Bed Evaluate Need For Continued Telemetry Incentive Spirometry Intake and Output Notify Provider Vital Signs Notify Provider Vital Signs Oxygen Protocol Place in Status Pulse Oximetry Regular Diet Resuscitation Status - Full Saline Lock Convert From IV Up ad Rosio Vital Signs Weight Problem List/Past Medical History Ongoing No qualifying data Historical No qualifying data Medications Inpatient acetaminophen 325 mg Tab, 650 mg= 2 tab(s), Oral, q6hr, PRN Al hydroxide/Mg hydroxide/simethicone 200 mg-200 mg-20 mg/5 mL oral suspension, 30 mL, Oral, q6hr, PRN albuterol HFA 90 mcg/inh MDI, 180 mcg= 2 puff(s), Inhalation, q4hr, PRN Ambien 5 mg Tab, 5 mg= 1 tab(s), Oral, Bedtime, PRN azithromycin additive + Sodium Chloride 0.9% intravenous solution 250 mL ceftriaxone additive + Sodium Chloride 0.9% intravenous solution 50 mL ibuprofen 800 mg Tab, 800 mg= 1 tab(s), Oral, TID, PRN Lovenox 40 mg/0.4 mL SC Saundra, 40 mg= 0.4 mL, SubCutaneous, Daily Milk of Magnesia 8% Susp-Oral, 30 mL, Oral, q6hr, PRN NS 1000 mL Soln-IV 1,000 mL, 1000 mL, IV Zofran 4 mg/2 mL Injection, 4 mg= 2 mL, IV Push, q6hr, PRN Home aspirin 81 mg Chew Tab, 162 mg= 2 tab(s), Oral, Daily Flintstones Multivitamins, 1 tab(s), Chewed, Daily Lasix 20 mg Tab, 20 mg= 1 tab(s), Oral, Daily Normal [facility] Comment on above: Result Comment: Elec tronically Signed By: MARIA T EMNDEZ, Sylevster\.br\Date and Time Signed: 10/07/21 12:27 EST Progress Note-Physician Basic Information 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 [1] Subjective Doing better today Less shortness of breath No nausea No fever chills Review of Systems Constitutional: no fever, no chills, no sweats, no weakness Respiratory: no shortness of breath, no cough, no orthopnea, no wheezing Cardiovascular: no chest pain, no palpitations, no edema Additional ROS info: Except as noted in the above Review of Systems and in the History of Present Illness all other systems have been reviewed and are negative or noncontributory. Objective Vitals & Measurements T: 36.6 ?C(Oral) TMIN: 36.4 ?C(Oral) TMAX: 36.8 ?C(Oral) HR: 66(Monitored) RR: 17 BP: 114/62 SpO2: 98% WT: 55 kg Intake & Output This visit (24 hour periods starting at 07:00 EST) 10/07/21 * 10/06/21 10/05/21 Total Summary Intake mL -- 313.5 -- Output mL -- 650 -- Fluid Balance -- -336.5 -- Intake (5) Sodium Chloride 0.9%, azithromycin mL -- 250 -- Sodium Chloride 0.9%, ceftriaxone mL -- 50 -- codeine-promethazine mL -- 10 -- dexamethasone mL -- 1.5 -- ondansetron mL -- 2 -- Total -- 313.5 -- Output (1) Urine Voided mL -- 650 -- Total -- 650 -- Counts (0) * This column has not completed the indicated time period. Physical Exam General: alert, no acute distress Skin: warm, dry Head: no trauma, normocephalic Neck: Trachea midline, no adenopathy, no tenderness Eye: normal conjunctiva, sclera clear ENMT: TM's clear, oral mucosa moist, no pharyngeal erythema or exudate Cardiovascular: regular rate and rhythm, normal peripheral perfusion Respiratory: Lungs expiratory wheezes, respirations non labored Chest wall: no deformity. Gastrointestinal: soft, non distended, no tenderness, no guarding. Back: No tenderness, Normal ROM, Normal alignment. Extremities: no deformity, no trauma Neurological: oriented x 4, LOC appropriate for age, CN II-XII intact, motor strength equal & normal bilaterally, sensation equal & normal bilaterally, speech normal Psychiatric: cooperative, affect appropriate for age, normal judgement, normal psychiatric thoughts. [2] Lab Results Troponin: 14.6 pg/mL (10/06/21 17:02:00) First Test: NO (10/07/21 09:58:00) Employed in Healthcare: YES (10/07/21 09:58:00) Symptomatic as defined by CDC: YES (10/07/21 09:58:00) Hospitalized?: YES (10/07/21 09:58:00) ICU: NO (10/07/21 09:58:00) Resides in a Congregate Care Setting: NO (10/07/21 09:58:00) ?: NO (10/07/21 09:58:00) Diagnostic Results (10/06/2021 09:40 EST CTA Chest) IMPRESSION: NO CT EVIDENCE OF PULMONARY EMBOLISM. THERE ARE AREAS OF AIRSPACE OPACIFICATION IN BOTH LUNGS, INCLUDING AREAS OF CONFLUENT AIRSPACE OPACIFICATION AND GROUNDGLASS OPACIFICATIONS. A COMBINATION OF ATELECTASIS AND PNEUMONIA IS SUSPECTED. CORRELATE CLINICALLY. SMALL FOCAL NODULAR DENSITY IN THE LEFT LOWER LOBE, SUSPICIOUS FOR A MASS. PLEASE REFER TO [employer] GUIDELINES FOR MANAGEMENT RECOMMENDATIONS. CLINICAL HISTORY: PE suspected, low/intermediate prob, positive D-dimer. Cough. Shortness of breath. COMMENT: Axial images were obtained after the rapid injection of IV contrast with narrow collimation and reconstructed at a narrow interval. Coronal and sagittal reconstructions were performed. On the PACS, images were reviewed in cine display and using MIP postprocessing. The pulmonary arteries are contrast opacified and no intraluminal filling defects are noted. The thoracic aorta is within normal limits in diameter, without evidence of aneurysm or dissection. There are sternotomy wires. There is an aortic valve prosthesis. The heart is upper limits of normal to borderline enlarged. No pericardial effusion is noted. There are nonspecific mediastinal and hilar lymph nodes. No discrete prominently enlarged mediastinal nor hilar nodes are evident. There are areas of confluent airspace opacification in posterior basilar portions of both lower lobes. There are areas of limited groundglass opacification in the posterior right upper lobe and in the anteromedial right upper lobe. There are areas of hazy groundglass opacification in the periphery of the right middle lobe and lingula. These lung findings are nonspecific and may be due to many possible causes, but a combination of atelectasis and infiltration is suspected. In light of the current pandemic, Covid 19 pneumonia is a consideration. There is a focal nodular density in the mid portion of the left lower lobe that measures approximately 1.1 x 0.9 x 1.2 cm, that has irregular spiculated margins, that is suspicious for a mass. Adjacent to this in the left lower lobe, there are several small focal areas of increased density, with the appearance more suggestive of small focal areas of (more content not included)... Normal [facility] Comment on above: Result Comment: Elec tronically Signed By: MARIA T MENDEZ, Sylvester\.br\Date and Time Signed: 10/07/21 12:08 EST Auto Diffon 10-06-2021 Basophils/100 WBC (Bld) 0.1 % Normal 0.0-2.0 [facility] Comment on above: Order Comment: Order Added by Discern Expert. Performed By: #### 2 [id number], [id number], [id number], [id number], 3995678, 7752385, 4555046, [id number], [id number] ####[address] [place] [address] Basophils/Leukocytes Auto (Bld) [Pure # fraction] 0.0 E9/L Normal 0.0-0.2 [facility] Comment on above: Order Comment: Order Added by Discern Expert. Performed By: #### 2 [id number], [id number], [id number], [id number], 4342358, 1776080, 2600510, 50139751, [id number] ####[address] [address] Eosinophils/100 WBC (Bld) 0.0 % Normal 0.0-8.0 [facility] Comment on above: Order Comment: Order Added by Discern Expert. Performed By: #### 2 328455, [id number], [id number], [id number], 0442339, 7251726, 5324891, [id number], [id number] ####[address] [place] [address] Eosinophils/Leukocyte s Auto (Bld) [Pure # fraction] 0.0 E9/L Normal 0.0-0.5 [facility] Comment on above: Order Comment: Order Added by Discern Expert. Performed By: #### 2 552280, [id number], 71074772, [id number], 0348071, 6969988, 4995512, 92868513, [id number] ####[address] [place] [address] Lymphocytes/100 WBC (Bld) 5.7 % Low 14.0-50.0 [facility] Comment on above: Order Comment: Order Added by Discern Expert. Performed By: #### 2 742907, 71836807, 38665191, [id number], 5660084, 0578756, 2779229, 13322386, [id number] ####[address] [place] [address] Lymphocytes/Leukocyte s Auto (Bld) [Pure # fraction] 0.5 E9/L Low 1.0-4.0 [facility] Comment on above: Order Comment: Order Added by Discern Expert. Performed By: #### 2 913240, 10968773, 19382126, [id number], 0646271, 9254878, 7103112, 18536567, [id number] ####[address] [place] [address] Monocytes/100 WBC (Bld) 7.3 % Normal 4.0-14.0 [facility] Comment on above: Order Comment: Order Added by Earl Expert. Performed By: #### 2 749068, 56735905, 37677152, [id number], 8845921, 6880668, 7064478, 18712392, [id number] ####[address] [address] Monocytes/Leukocytes Auto (Bld) [Pure # fraction] 0.7 E9/L Normal 0.2-1.0 [facility] Comment on above: Order Comment: Order Added by Earl Expert. Performed By: #### 2 515701, 85875157, 20108892, [id number], 4365573, 9212949, 6227307, 80021623, 78894329 ####[address] [place] [address] Neutrophils/100 WBC (Bld) 86.9 % High 36.0-75.0 [facility] Comment on above: Order Comment: Order Added by Earl Expert. Performed By: #### 2 101927, 96677602, 79110057, [id number], 6831347, 2798831, 1483694, 54087413, 88912981 ####[address] [place] [address] Neutrophils/Leukocyte s Auto (Bld) [Pure # fraction] 7.9 E9/L High 2.0-7.5 [facility] Comment on above: Order Comment: Order Added by Discern Expert. Performed By: #### 2 222977, 96986068, 10530596, [id number], 5143040, 0536754, 8234063, 63914637, 99696839 ####[facility] [address] [place] [address] BMPon 10-06-2021 Creatinine [Mass/Vol] 0.8 mg/dL Normal 0.5-1.3 [facility] Comment on above: Performed By: #### 2 608130, [id number], 12536869, [id number], 0729511, 3596906, 0388954, 39848034, [id number] ####[facility] [address] [place] [address] Urea nitrogen [Mass/Vol] 15 mg/dL Normal 5-21 [facility] Comment on above: Performed By: #### 2 454665, 80111369, 20312791, [id number], 6611546, 0020581, 6438055, 08935808, 97632152 ####[facility] [address] [place] [address] Urea nitrogen/Creatinine [Mass ratio] 19 No Units Normal 10-20 [facility] Comment on above: Performed By: #### 2 342051, 44654926, 42124561, 6545727935, 6852131, 9931015, 3392214, 85144686, 34326408 ####[facility] [address] [place] [address] Anion gap [Moles/Vol] 10 mmol/L Normal 6-16 [facility] Comment on above: Performed By: #### 2 542299, 37375394, 29871597, 7581608599, 3374174, 3201771, 1252914, 63003715, 68771008 ####[facility] [address] [place] [address] Calcium [Mass/Vol] 9.0 mg/dL Normal 8.9-11.1 [facility] Comment on above: Performed By: #### 2 831358, 65038230, 08202245, 9559443732, 1353226, 2719297, 1380237, 13060293, 27842109 ####[facility] [address] [place] [address] Chloride [Moles/Vol] 98 mmol/L Low 101-[address] [facility] Comment on above: Performed By: #### 2 996595, 74706051, 11035126, 4756892201, 4085104, 7072834, 9268840, 59453611, 96732649 ####[facility] [address] [place] [address] CO2 [Moles/Vol] 23 mmol/L Normal 21-31 [facility] Comment on above: Performed By: #### 2 871657, 85686758, 88114950, 8009990312, 8347165, 5192135, 3857841, 72466498, 65950796 ####[facility] [address] [place] [address] Glucose [Mass/Vol] 105 mg/dL Normal 55-199 [facility] Comment on above: Result Comment: If t his glucose result represents a fasting glucose, interpretation should refer to the following reference range: 55-99 mg/dL Performed By: #### 2 689154, 31940740, 48315991, 8837208910, 4181200, 9857558, 1523054, 31957144, 37904288 ####[facility] [address] [place] [address] Potassium [Moles/Vol] 3.6 mmol/L Normal 3.5-5.3 [facility] Comment on above: Performed By: #### 2 686855, 99932305, 83932641, 0433227914, 4480192, 7257867, 0650014, 56195668, 02377136 ####[facility] [address] [place] [address] Sodium [Moles/Vol] 127 mmol/L Low 135-145 [facility] Comment on above: Performed By: #### 2 387658, 26870560, 34648520, 7515278968, 6439852, 4948579, 6367532, 88894862, 97983292 ####[facility] [address] [place] [address] BNPon 10-06-2021 Natriuretic peptide B (Bld) [Mass/Vol] 20 pg/mL Normal 5-80 [facility] Comment on above: Performed By: #### 2 521590, 26848983, 61677872, 8577001031, 9554218, 1103492, 8432147, 16721215, 03322683 ####[address] [place] [address] CBC w/ Auto Diffon Erythrocyte distribution width (RBC) [Ratio] 13.9 % Normal 10.9-14.2 [facility] Comment on above: Performed By: #### 2 326977, 49829013, 98629512, 8816707025, 4856617, 8722564, 9649337, 38028637, 74738751 ####[address] [place] [address] Hematocrit (Bld) [Volume fraction] 34.1 % Normal 34.0-46.0 [facility] Comment on above: Performed By: #### 2 521653, 38224963, 36056627, 4326338907, 3117980, 8369918, 4475217, 16075887, 72105469 ####[facility] [address] [place] [address] Hemoglobin (Bld) [Mass/Vol] 11.9 g/dL Low 12.0-16.0 [facility] Comment on above: Performed By: #### 2 637824, 26352189, 41212623, 1857663432, 6785665, 8890178, 1764369, 46122360, 62477094 ####[address] [place] [address] MCH (RBC) [Entitic mass] 30.5 pg Normal 27.0-34.0 [facility] Comment on above: Performed By: #### 2 359570, 41646087, 51815200, 0948028481, 0958949, 5059809, 8413204, 38316698, 31385704 ####[address] [place] [address] MCHC (RBC) [Mass/Vol] 34.9 g/dL Normal 31.4-36.0 [facility] Comment on above: Performed By: #### 2 974796, 57220252, 90021870, 0265139661, 1613766, 5957912, 8417934, 10006983, 57475376 ####[address] [address] MCV (RBC) [Entitic vol] 87.4 fL Normal 80.0-100.0 [facility] Comment on above: Performed By: #### 2 011285, 03190416, 06997604, 9047296175, 9400152, 8532386, 3087418, 61525847, 17323405 ####[address] [place] [address] Platelet mean volume (Bld) [Entitic vol] 7.0 fL Normal 6.4-10.8 [facility] Comment on above: Performed By: #### 2 611487, 98148874, 42220653, 4159166317, 5420730, 5564784, 6771632, 78367869, 16062402 ####[address] [place] [address] Platelets (Bld) [#/Vol] 225.0 E9/L Normal 150.0-500.0 [facility] Comment on above: Performed By: #### 2 224693, 27667032, 45206093, 8440807155, 5327889, 2065903, 4539275, 53881835, 27257683 ####[facility] [address] [place] [address] RBC (Bld) [#/Vol] 3.9 E12/L Low 4.3-5.9 [facility] Comment on above: Performed By: #### 2 715972, 24982742, 20248470, 9381756379, 6405344, 4141327, 8048016, 94802607, 45859199 ####[facility] [address] [place] [address] WBC corrected for nucl RBC Auto (Bld) [#/Vol] 9.1 E9/L Normal 4.0-11.0 [facility] Comment on above: Performed By: #### 2 993763, 26055405, 85195015, 4887601626, 1756616, 4970848, 2280545, 31828081, 14031509 ####[facility] [address] [place] [address] COVID-19 (MC)on 10-06-2021 SARS-CoV-2 (COVID-19) RNA SYED+probe Ql (Resp) Not detected Normal Not Detected [facility] Comment on above: Result Comment: This test result should be correlated with clinical presentations and medical history by a healthcare provider to determine its clinical significance. This assay was performed by a reverse transcriptase real-time polymerase chain reaction (rt PCR) method on the Venmo system. This test has been authorized only for the detection of nucleic acid from SARS-CoV-2, not for any other viruses or pathogens. This test has not been FDA cleared or approved. This test has been authorized by FDA under an Emergency Use Authorization (EUA). This test is only authorized for the duration of time the declaration on that circumstances exist justifying the authorization emergency use of in vitro diagnostic tests for detection and/or diagnosis of COVID-19 infection under section 564 (b) (1) of the Act, 21 U.S.C. 360 bbb-3 (b) (1), unless authorization is terminated or revoked sooner. Performed By: #### 2 [id number] ####[place] [address] SARS-CoV-2 (COVID-19) RNA SYED+probe Ql (Unsp spec) Pass Normal Pass [facility] Comment on above: Performed By: #### 2 [id number] ####[place] [address] Specimen source Nom (Unsp spec) Nasal Normal [facility] Comment on above: Performed By: #### 2 [id number] ####[place] [address] ADMITTED TO INTENSIVE CARE UNIT FOR CONDITION OF INTEREST:FIND:PT: Unknown Normal [facility] Comment on above: Performed By: #### 2 [id number] ####[place] [address] EMPLOYED IN A HEALTHCARE SETTING:FIND:PT: YES Normal [facility] Comment on above: Performed By: #### 2 [id number] ####[place] [address] FIRST TEST FOR CONDITION OF INTEREST:FIND:PT: NO Normal [facility] Comment on above: Performed By: #### 2 [id number] ####[place] [address] HAS SYMPTOMS RELATED TO CONDITION OF INTEREST:FIND:PT: YES Normal [facility] Comment on above: Performed By: #### 2 [id number] ####[place] [address] HOSPITALIZED FOR CONDITION OF INTEREST:FIND:PT: Unknown Normal [facility] Comment on above: Performed By: #### 2 [id number] ####[place] [address] STATUS:FIND:PT: NO Normal [facility] Comment on above: Performed By: #### 2 [id number] ####[address] [place] [address] RESIDES IN A CONGREGATE CARE SETTING:FIND:PT: NO Normal [facility] Comment on above: Performed By: #### 2 [id number] ####[facility] [address] [place] [address] CTA Cheston 10-06-2021 CTA Chest Exam Date/Time: 10/06/2021 09:40 EST Reason for Exam: PE suspected, low/intermediate prob, positive D-dimer;Other (please specify) Report IMPRESSION: NO CT EVIDENCE OF PULMONARY EMBOLISM. THERE ARE AREAS OF AIRSPACE OPACIFICATION IN BOTH LUNGS, INCLUDING AREAS OF CONFLUENT AIRSPACE OPACIFICATION AND GROUNDGLASS OPACIFICATIONS. A COMBINATION OF ATELECTASIS AND PNEUMONIA IS SUSPECTED. CORRELATE CLINICALLY. SMALL FOCAL NODULAR DENSITY IN THE LEFT LOWER LOBE, SUSPICIOUS FOR A MASS. PLEASE REFER TO [employer] GUIDELINES FOR MANAGEMENT RECOMMENDATIONS. CLINICAL HISTORY: PE suspected, low/intermediate prob, positive D-dimer. Cough. Shortness of breath. COMMENT: Axial images were obtained after the rapid injection of IV contrast with narrow collimation and reconstructed at a narrow interval. Coronal and sagittal reconstructions were performed. On the PACS, images were reviewed in cine display and using MIP postprocessing. The pulmonary arteries are contrast opacified and no intraluminal filling defects are noted. The thoracic aorta is within normal limits in diameter, without evidence of aneurysm or dissection. There are sternotomy wires. There is an aortic valve prosthesis. The heart is upper limits of normal to borderline enlarged. No pericardial effusion is noted. There are nonspecific mediastinal and hilar lymph nodes. No discrete prominently enlarged mediastinal nor hilar nodes are evident. There are areas of confluent airspace opacification in posterior basilar portions of both lower lobes. There are areas of limited groundglass opacification in the posterior right upper lobe and in the anteromedial right upper lobe. There are areas of hazy groundglass opacification in the periphery of the right middle lobe and lingula. These lung findings are nonspecific and may be due to many possible causes, but a combination of atelectasis and infiltration is suspected. In light of the current pandemic, Covid 19 pneumonia is a consideration. There is a focal nodular density in the mid portion of the left lower lobe that measures approximately 1.1 x 0.9 x 1.2 cm, that has irregular spiculated margins, that is suspicious for a mass. Adjacent to this in the left lower lobe, there are several small focal areas of increased density, with the appearance more suggestive of small focal areas of confluent airspace opacification, but small irregular nodules are not excluded. No pneumothorax nor pleural effusion is evident. In the subdiaphragmatic right lobe of the liver anteriorly, there are two adjacent focal areas of low attenuation, with well-defined rounded margins, the larger has a greatest diameter of 3.5 cm and the smaller a greatest diameter of 1.5 cm, and the density of these is consistent with cysts. All CT scans at this facility use dose modulation, iterative reconstruction, and/or weight based dosing when appropriate to reduce radiation dose to as low as reasonably achievable. Report Fleischner Society 2017 Guidelines for Management of Incidentally Detected Pulmonary Nodules in Adults A: Solid Nodules* Single Low risk <6 mm No routine follow-up 6-[address] at 6-12 months, then consider CT at 18-24 months >[address], PET/CT, or tissue sampling at 3 months Nodules <6 mm do not require routine follow-up, but certain patients at high risk with suspicious nodule morphology, upper lobe location, or both may warrant 12-month follow-up (recommendation 1A). High risk <[address] at 12 months 6-[address] at 6-12 months, then CT at 18-24 months >[address], PET/CT, or tissue sampling at 3 months Nodules <6 mm do not require routine follow-up, but certain patients at high risk with suspicious nodule morphology, upper lobe location, or both may warrant 12-month follow-up (recommendation 1A). Multiple Low risk <6 mm No routine follow-up 6-[address] at 3-6 months, then consider CT at 18-24 months >[address] at 3-6 months, then consider CT at 18-24 months Use most suspicious nodule as guide to management. Follow-up intervals may vary according to size and risk (recommendation 2A). High risk <[address] at 12 months 6-[address] at 3-6 months, then at 18-24 months >[address] at 3-6 months, then at 18-24 months Use most suspicious nodule as guide to management. Follow-up intervals may vary according to size and risk (recommendation 2A). B: Subsolid Nodules* Single Ground glass <6 mm No routine follow-up >=[address] at 6-12 months to confirm persistence, then CT every 2 years until 5 years In certain suspicious nodules <6 mm, consider follow-up at 2 and 4 years. If solid component(s) or growth develops, consider resection. (Recommendations 3A and 4A). Part solid <6 mm No routine follow-up >=[address] at 3-6 months to confirm persistence. If unchanged and solid component re (more content not included)... Normal [facility] Consent for Treatmenton Consent for Treatment [id number] 2009 [id number] 0CD:127 Normal [facility] D-Dimeron 10-06-2021 Fibrin D-dimer FEU (PPP) [Mass/Vol] [id number] Abnormal 215-500 [facility] Comment on above: Result Comment: Resu lts Verified By Repeat Analysis Results Called To NUT TAPPERFIFI LENNON By And Read Back For Confirmation On 10/06/2021 09:01:29 EST. This assay is intended for use as an aid in the diagnosis of DVT or PE. These conditions cannot be excluded with certainty solely on the basis of a D-dimer concentration being within the reference range This D-Dimer assay may be used in conjunction with a non-high clinical pretest probability assessment to exclude deep-vein thrombosis(DVT). For exclusion of venous thrombosis or pulmonary embolism the analyte D-Dimer should not be used as an aid in patients with: Therapeutic dose anticoagulant therapy for >24 hours Fibrinolytic therapy within previous 7 days Trauma or surgery within previous 4 weeks Disseminated malignacies Aortic aneurysm Sepsis, severe infections, pneumonia, severe skin infections Liver cirrhosis Performed By: #### 2 221072, 83198070, 56990505, [id number], 0224538, 4566098, 2802794, 42814070, 80394325 ####[facility] [address] [place] [address] ED Clinical Summaryon 2021 ED Clinical Summary [address] [address] ED Clinical Summary Person Information Name: SWATHI VALLADARES/New_Alli Age: 66 Years : 1955 Sex: Female Language: Burmese PCP: VIVI LIAO MD Marital Status: Single Visit Id: Visit Reason: Abdominal pain; Cough; Shortness of breath; cough, sob, abd pain Speciality: Acuity: 3 Enc Type: Emergency Med Service: Emergency Arrival: 10/06/2021 07:06:31 Discharge: LOS: 000 07:57 Checkin: 10/06/2021 07:06:31 Checkout: 10/06/2021 15:03:47 Dispo Type: Admitted as IP to this [facility] EVENTS: Event Name Event Status Request Date/Time Start Date/Time Complete Date/Time Arrive Complete 10/06/2021 07:06:31 10/06/2021 07:06:31 10/06/2021 07:06:31 Document Home Meds Request 10/06/2021 07:06:31 Triage Complete 10/06/2021 07:06:31 10/06/2021 07:18:14 10/06/2021 07:18:14 Bed Assign Complete 10/06/2021 07:10:31 10/06/2021 07:10:31 10/06/2021 07:10:31 Dr Exam Complete 10/06/2021 07:10:31 10/06/2021 07:31:39 10/06/2021 07:31:39 RN Exam Complete 10/06/2021 07:10:31 10/06/2021 08:22:53 10/06/2021 08:22:53 EKG Complete 10/06/2021 07:11:53 10/06/2021 07:17:58 Patient Care Request 10/06/2021 07:18:15 Patient Isolation Request 10/06/2021 07:18:15 Registration Complete 10/06/2021 07:31:39 10/06/2021 08:40:45 10/06/2021 08:40:45 Pending Labs Request 10/06/2021 07:43:46 Lab Inlab 10/06/2021 07:43:46 Urine Collect Complete 10/06/2021 07:43:46 10/06/2021 11:45:33 Patient Care Complete 10/06/2021 07:43:46 10/06/2021 11:53:56 X-Ray Complete 10/06/2021 07:43:46 10/06/2021 08:18:49 10/06/2021 08:38:13 RT Request 10/06/2021 07:43:46 Meds Admin Complete 10/06/2021 07:44:54 10/06/2021 08:13:46 Pending Labs Complete 10/06/2021 08:09:13 10/06/2021 08:09:13 10/06/2021 08:31:07 Lab Complete 10/06/2021 08:09:13 10/06/2021 08:09:13 10/06/2021 08:31:07 Pending Labs Complete 10/06/2021 08:17:04 10/06/2021 08:17:04 10/06/2021 08:17:15 Lab Complete 10/06/2021 08:17:04 10/06/2021 08:17:04 10/06/2021 08:17:15 Pending Labs Cancel 10/06/2021 08:37:48 10/06/2021 08:53:19 Wet Read Request 10/06/2021 08:38:13 Reg Complete Request 10/06/2021 08:40:45 Reg Bed Request Complete 10/06/2021 08:40:45 10/06/2021 08:40:45 10/06/2021 08:40:45 Pending Labs Complete 10/06/2021 08:44:16 10/06/2021 13:28:11 Lab Complete 10/06/2021 08:44:16 10/06/2021 13:28:11 Pending Labs Complete 10/06/2021 08:54:26 10/06/2021 08:54:26 10/06/2021 11:58:54 Meds Admin Complete 10/06/2021 08:58:00 10/06/2021 09:05:18 Meds Admin Complete 10/06/2021 08:58:53 10/06/2021 14:45:24 CT Complete 10/06/2021 09:03:37 10/06/2021 09:08:34 10/06/2021 09:40:18 Patient Care Request 10/06/2021 10:45:01 Patient Isolation Request 10/06/2021 10:45:01 Meds Admin Request 10/06/2021 10:48:45 Consult Request 10/06/2021 12:40:40 Hospitalist Consult Request 10/06/2021 12:40:40 Patient Care Request 10/06/2021 14:36:35 Meds Admin Request 10/06/2021 14:36:35 RT Request 10/06/2021 14:36:35 RT Tx/ABG Request 10/06/2021 14:36:35 Bed Request Request 10/06/2021 14:36:35 Reg Bed Request Request 10/06/2021 14:36:35 Admit Request 10/06/2021 14:36:35 Meds Admin Request 10/06/2021 14:39:38 Consult Request 10/06/2021 14:39:38 Meds Admin Request 10/06/2021 14:40:26 RT Tx/ABG Request 10/06/2021 14:40:27 RT Tx/ABG Request 10/06/2021 14:40:27 Meds Admin Request 10/06/2021 14:47:08 Consult Request 10/06/2021 14:47:58 Patient Care Cancel 10/06/2021 14:57:00 10/06/2021 14:57:01 Patient Isolation Cancel 10/06/2021 14:57:00 10/06/2021 14:57:01 Inpatient Bed Ready Complete 10/06/2021 15:03:47 10/06/2021 15:03:47 10/06/2021 15:03:47 [address]: [address] [facility] [id number] [facility] NOTES: MEDICAL INFORMATION: Prescriptions Given: Medications to Continue with No Changes Other Medications aspirin (aspirin 81 mg Chew Tab) 2 Tablets By Mouth every day. furosemide (Lasix 20 mg Tab) 1 Tablets By Mouth every day. PRN for leg swelling. multivitamin (Flintstones Multivitamins) 1 Tablets Chewed every day. PATIENT EDUCATION INFORMATION: Instructions: Follow up: DIAGNOSIS: 1:Acute respiratory failure; 2:Sepsis; 3:Community acquired pneumonia; 4:COVID-19 virus infection; 5:Abdominal mass; 6:DVT prophylaxis Normal [facility] ED Patient Education Noteon 10-06-2021 ED Patient Education Note Normal [facility] ED Patient Summaryon 022 ED Patient Summary [place] [id number] Patient Discharge Instructions Person Information Name: SWATHI VALLADARES Age: 66 Years Arrival Date: 10/06/2021 07:06:31 Discharge Diagnosis: 1:Acute respiratory failure; 2:Sepsis; 3:Community acquired pneumonia; 4:COVID-19 virus infection; 5:Abdominal mass; 6:DVT prophylaxis Primary Care Physician: VIVI LIAO MD Provider Information Primary Provider: Danny Aguilera MD Advanced Metaphysician:None The exam and treatment you received in the Emergency Department were for an urgent problem and are not intended as complete care. It is important that you follow up with a doctor, nurse practitioner, or physician?s surgical dental assistant for ongoing care. If your symptoms become worse or you do not improve as expected and you are unable to reach your usual health care provider, you should return to the Emergency Department. We are available 24 hours a day. SWATHI VALLADARES has been given the following list of patient education materials, prescriptions and follow-up instructions: Follow-up Instructions: In the event that this physician does not participate in your insurance network, please consult with your insurance company to find a nearby participating provider. Patient Education Materials: A MESSAGE TO ALL PATIENTS REGARDING OPIOIDS PRESCRIPTION OPIOIDS: WHAT YOU NEED TO KNOW Prescription opioids can be used to help relieve jlrfnhuk-sp-xwhddp pain and are often prescribed following a surgery or injury, or for certain health conditions. These medications can be an important part of the treatment but also come with serious risks. It is important to work with your healthcare provider to make sure you are getting the safest, most effective care. WHAT ARE THE RISKS AND SIDE EFFECTS OF OPIOID USE? Prescription opioids carry serious risks of addiction and overdose, especially with prolonged use. An opioid overdose, often marked by slowed breathing, can cause sudden . The use of prescription opioids can have a number of side effects as well, even when taken as directed: ? Tolerance?meaning you might need to take more of the medication for the same pain relief ? Physical dependence?meaning you have symptoms of withdrawal when a medication is stopped ? Increased sensitivity to pain ? Constipation ? Nausea, vomiting, and dry mouth ? Sleepiness and dizziness ? Confusion ? Depression ? Low levels of testosterone that can result in lower sex drive, energy, and strength ? Itching and sweating RISKS ARE GREATER WITH: ? History of drug misuse, substance use disorder, or overdose ? Mental health conditions (such as depression or anxiety) ? Sleep apnea ? Older age (65 years and older) ? Avoid alcohol while taking prescription opioids. Also, unless specifically advised by your health care provider, medications to avoid include: ? Benzodiazepines (such as Xanax or Valium) ? Muscle relaxants (such as Soma or Flexeril) ? Hypnotics (such as Ambien or Lunesta) ? Other prescription opioids KNOW YOUR OPTIONS Talk to your health care provider about ways to manage your pain that don?t involve prescription opioids. Some of these options may actually work better and have fewer risks and side effects. Options may include: ? Pain relievers such as acetaminophen, ibuprofen, and naproxen ? Some medication that are also used for depression or seizures ? Physical therapy and exercise ? Cognitive behavioral therapy, a psychological, goal-directed approach, in which patients learn how to modify physical, behavioral, and emotional triggers of pain and stress. IF YOU ARE PRESCRIBED OPIOIDS FOR PAIN: ? Never take opioids in greater amounts or more often than prescribed. ? Follow up with your primary health care provider. o Work together to create a plan on how to manage your pain. o Talk about ways to help manage your pain that don?t involve prescription opioids. o Talk about any and all concerns and side effects. ? Help prevent misuse and abuse o Never sell or share prescription opioids. o Never use another person?s prescription opioids. ? Store prescription opioids in a secure place and out of reach of others (this may include visitors, children, friends, and family). ? Safely dispose of unused prescription opioids: Find your community drug take-back program or your pharmacy mail-back program, or flush them down the toilet, following guidance from the Food and Drug Administration (www.fda.gov/Drugs/Res pardeepMartinDexteru). ? Visit www.cdc.gov/drugoverdo se to learn about the risks of opioids abuse and overdose. ? If you believe you may be struggling with addiction, tell your health healthcare sales representative and ask for guidance or call [facility] National Helpline at 9-760-922-EFGU. g Source: [place] Department of Health and Human Services/Center for Disease Co (more content not included)... Normal [facility] Monitor Recordon 10-06-2021 Monitor Record [id number]:127 Normal [facility] PT & PTTon 10-06-2021 aPTT Coag (PPP) [Time] 32.7 second(s) Normal 25.1-36.5 [facility] Comment on above: Result Comment: Hepa rin therapeutic range (represented by Anti-Factor Xa activity of 0.2 - 0.4 U/mL) corresponds to PTT of 56.6 - 109.0 sec. Performed By: #### 2 [id number], 97679145, 15299062, [id number], 9310942, 6158701, 0690470, 66592062, 31110897 ####[facility] [address] [place] [place] [address] INR Coag (PPP) [Relative time] 1.2 {INR} Invalid Interpretation Code [facility] Comment on above: Result Comment: INR results are specifically intended to assess patients stabilized on long-term Anticoagulation therapy suggested INR?s ?Less Intensive Anticoagulation? 2.0 ? 3.0 Conventional Range 3.0 ? 4.5 Performed By: #### 2 [id number], [id number], [id number], [id number], 0269704, 7813283, 1045394, [id number], [id number] ####[facility] [address] [place] [address] PT Coag (PPP) [Time] 14.0 second(s) High 10.2-12.9 [facility] Comment on above: Performed By: #### 2 [id number], [id number], [id number], [id number], 8564022, 6731950, 4315988, 96509491, [id number] ####[facility] [address] [place] [address] Procalcitoninon 10-06-2021 Procalcitonin .22 ng/mL Normal .00-.50 [facility] Comment on above: Result Comment: <0.5 ng/mL Low risk of severe sepsis and/or shock >2.0 ng/mL High risk of severe sepsis and/or shock Concentrations under 0.5 ng/mL do not exclude local infections or systemic infections in their initial stages (e.g.. under six hours from onset of illness). PCT concentrations between 0.5 and 2.0 ng/mL should be interpreted with consideration of the patient's history. In this range, it is recommended to retest PCT within 6 to 24 hours. Performed By: #### 2 [id number], [id number], 08945416, [id number], 4368813, 0217776, 0145428, 10861393, [id number] ####[facility] [address] [place] [address] Rapid COVID Antigen (MC)on 10-06-2021 Rapid COV Int NEG Ctl Pass Normal [facility] Comment on above: Performed By: #### 2 [id number] ####[address] [place] [address] Rapid COV Int POS Ctl Pass Normal [facility] Comment on above: Performed By: #### 2 [id number] ####[address] [place] [address] SARS-CoV+SARS-CoV-2 (COVID-19) Ag IA.rapid Ql (Resp) Not detected Normal Not Detected [facility] Comment on above: Result Comment: The mygolaitor? System for Rapid Detection of SARS-CoV-2 is a chromatographic digital immunoassay intended for the direct and qualitative detection of SARS-CoV-2 nucleocapsid antigens in nasal swabs from individuals who are suspected of COVID-19 by their healthcare provider within the first five days of the onset of symptoms. Negative results should be treated as presumptive, do not rule out SARS-CoV-2 infection and should not be used as the sole basis for treatment or patient management decisions, including infection control decisions. Negative results should be considered in the context of a patient?s recent exposures, history and the presence of clinical signs and symptoms consistent with COVID-19, and confirmed with a molecular assay, if necessary, for patient management. For in vitro diagnostic use. In the [place], only for use under an Emergency Use Authorization. In the [place], this test has not been FDA cleared or approved; this test has been authorized by FDA under an EUA for use by authorized laboratories; use by laboratories certified under the CLIA, 42 U.S.C. ?263a, that meet requirements to perform moderate, high, or waived complexity tests and at the Point of Care (POC), i.e., in patient care settings operating under a CLIA Certificate of Waiver, Certificate of Compliance, or Certificate of Accreditation. This test has been authorized only for the detection of proteins from SARS-CoV-2, not for any other viruses or pathogens; and, in the [place], this test is only authorized for the duration of the declaration that circumstances exist justifying the authorization of emergency use of in vitro diagnostics for detection and/or diagnosis of the virus that causes COVID-19 under Section 564(b)(1) of the Act, 21 U.S.C. ? 360bbb-3(b)(1), unless the authorization is terminated or revoked sooner. Performed By: #### 2 [id number] ####[address] [place] [address] ADMITTED TO INTENSIVE CARE UNIT FOR CONDITION OF INTEREST:FIND:PT: Unknown Normal [facility] Comment on above: Performed By: #### 2 [id number] ####[place] [address] EMPLOYED IN A HEALTHCARE SETTING:FIND:PT: YES Normal [facility] Comment on above: Performed By: #### 2 [id number] ####[place] [address] FIRST TEST FOR CONDITION OF INTEREST:FIND:PT: NO Normal [facility] Comment on above: Performed By: #### 2 [id number] ####[place] [address] HAS SYMPTOMS RELATED TO CONDITION OF INTEREST:FIND:PT: YES Normal [facility] Comment on above: Performed By: #### 2 [id number] ####[place] [address] HOSPITALIZED FOR CONDITION OF INTEREST:FIND:PT: Unknown Normal [facility] Comment on above: Performed By: #### 2 [id number] ####[place] [address] STATUS:FIND:PT: NO Normal [facility] Comment on above: Performed By: #### 2 [id number] ####[place] [address] RESIDES IN A [facility] CARE SETTING:FIND:PT: NO Normal [facility] Comment on above: Performed By: #### 2 [id number] ####[place] [address] Troponin 0 Hr.on 10-06-2021 Troponin I.cardiac [Mass/Vol] 8.00 pg/mL Low 10.10-27.10 [facility] Comment on above: Result Comment: The 95% CI (Confidence Interval) PPV (Positive Predictive Value) for myocardial infarction in females is 38 pg/mL, in males 51 pg/mL. The results should be used in conjunction with clinical conditions of myocardial infarction. (Access High Sensitivity Troponin I Instructions For Use, Pepe Kerkhoven, May 2018) Performed By: #### 2 [id number], [id number], [id number], [id number], 4585976, 3342801, 4618714, 79739363, [id number] ####[facility] [address] [place] [address] Troponin 3 Hr.on 10-06-2021 Troponin I.cardiac [Mass/Vol] 11.00 pg/mL Normal 10.10-27.10 [facility] Comment on above: Result Comment: The 95% CI (Confidence Interval) PPV (Positive Predictive Value) for myocardial infarction in females is 38 pg/mL, in males 51 pg/mL. The results should be used in conjunction with clinical conditions of myocardial infarction. (Access High Sensitivity Troponin I Instructions For Use, [employer], May 2018) Performed By: #### 1 [id number] ####[facility] [address] [place] [address] Troponin 6 Hr.on 10-06-2021 Troponin I.cardiac [Mass/Vol] 14.50 pg/mL Normal 10.10-27.10 [facility] Comment on above: Result Comment: The 95% CI (Confidence Interval) PPV (Positive Predictive Value) for myocardial infarction in females is 38 pg/mL, in males 51 pg/mL. The results should be used in conjunction with clinical conditions of myocardial infarction. (ShowMe VIdeoke High Sensitivity Troponin I Instructions For Use, [employer], May 2018) Performed By: #### 1 [id number] ####[address] [place] [address] Troponin 9 Hr.on 10-06-2021 Troponin I.cardiac [Mass/Vol] 14.60 pg/mL Normal 10.10-27.10 [facility] Comment on above: Result Comment: The 95% CI (Confidence Interval) PPV (Positive Predictive Value) for myocardial infarction in females is 38 pg/mL, in males 51 pg/mL. The results should be used in conjunction with clinical conditions of myocardial infarction. (ShowMe VIdeoke High Sensitivity Troponin I Instructions For Use, [employer], May 2018) Performed By: #### 1 [id number] ####[facility] [address] [place] [address] UA With Cult Reflexon 2021 Bilirubin Ql (U) Negative Normal Negative [facility] Comment on above: Performed By: #### 1 [id number] ####[address] [place] [address] Clarity (U) CLEAR Normal Clear [facility] Comment on above: Performed By: #### 1 [id number] ####[address] [place] [address] Color (U) YELLOW Normal Yellow [facility] Comment on above: Performed By: #### 1 [id number] ####[address] [address] Epithelial cells.squamous LM.HPF (Urine sed) [#/Area] 0-2 Normal 0-2 [facility] Comment on above: Performed By: #### 1 [id number] ####[address] [address] Glucose Test strip (U) [Mass/Vol] Negative Normal Negative [facility] Comment on above: Performed By: #### 1 [id number] ####[address] [address] Hemoglobin Ql (U) 1+ Abnormal Negative [facility] Comment on above: Performed By: #### 1 [id number] ####[address] [address] Ketones (U) [Mass/Vol] Negative Normal Negative [facility] Comment on above: Performed By: #### 1 [id number] ####[address] [address] [place].plasma/Lithiu m.RBC (Bld) [Mass ratio] 0-3 Normal 0-3 [facility] Comment on above: Performed By: #### 1 [id number] ####[address] [address] Nitrite Ql (U) Negative Normal Negative [facility] Comment on above: Performed By: #### 1 5177529 ####[address] [address] pH (U) 6.5 [pH] Invalid Interpretation Code 5.0-9.0 [facility] Comment on above: Performed By: #### 1 [id number] ####[address] [address] Protein (U) [Mass/Vol] Negative Normal Negative [facility] Comment on above: Performed By: #### 1 [id number] ####[address] [address] Specific gravity (U) [Rel density] 1.010 Invalid Interpretation Code 1.005-1.030 [facility] Comment on above: Performed By: #### 1 [id number] ####[address] [address] Type of Urine collection method Clean Catch Normal [facility] Comment on above: Performed By: #### 1 [id number] ####[address] [address] Urobilinogen Qn (U) 0.2 {Safia'U}/dL Normal 0.0-1.0 [facility] Comment on above: Performed By: #### 1 [id number] ####[address] [address] WBC Auto Ql (U) Negative Normal Negative [facility] Comment on above: Performed By: #### 1 [id number] ####[address] [address] WBC LM.HPF (Urine sed) [#/Area] 0-5 Normal 0-5 [facility] Comment on above: Performed By: #### 1 [id number] ####[address] [address] XR Chest 2 Viewson XR Chest 2 Views Exam Date/Time: 10/06/2021 08:38 EST Reason for Exam: Cough Report IMPRESSION: BILATERAL BASILAR ATELECTASIS AND/OR INFILTRATION. CLINICAL HISTORY: Cough. COMMENT: There are sternotomy wires. There is an aortic valve prosthesis. There is borderline cardiomegaly. The mediastinum is unremarkable. There are areas of increased density at both lung bases, that may be due to atelectasis and/or infiltration. No pleural effusion is evident. FINAL REPORT Dictated: 10/06/2021 2:05 pm Petey Herrera M.D. Signed (Electronic Signature): 10/06/2021 2:05 pm Signed by: Petey Herrera M.D. Transcribed by: SHAQUILLE Technologist: AO Normal [facility] eGFRon 10-06-2021 GFR/1.73 sq M.predicted among blacks MDRD (S/P/Bld) [Vol rate/Area] mL/min/{1.73_m2} Normal >=59 [facility] Comment on above: Order Comment: Order added by Discern Expert. Result Comment: eGFR is race adjusted. AA=. Performed By: #### 2 009311, [id number], 62092852, [id number], 4734190, 1085152, 8068828, 73937233, 56279120 ####[facility] [address] [place] [address] GFR/1.73 sq M.predicted among non-blacks MDRD (S/P/Bld) [Vol rate/Area] mL/min/{1.73_m2} Normal >=59 [facility] Comment on above: Order Comment: Order added by Discern Expert. Result Comment: Biotechnician landon kidney disease could be indicated at eGFR's of less than 60 mL/min/1.73m2. Kidney failure is indicated at less than 15 mL/min/1.73m2. Performed By: #### 2 449949, 32384063, 93965021, [id number], 2721375, 5347145, 4104265, 93797444, 95051760 ####[facility] [address] [place] [address] [place] [place]21 SARS-CoV-2 (COVID-19) RNA SYED+probe Ql (Resp) Not detected Normal Not Detected [facility] Comment on above: Result Comment: This test result should be correlated with clinical presentations and medical history by a healthcare provider to determine its clinical significance. This assay was performed by a reverse transcriptase real-time polymerase chain reaction (rt PCR) method on the Venmo system. This test has been authorized only for the detection of nucleic acid from SARS-CoV-2, not for any other viruses or pathogens. This test has not been FDA cleared or approved. This test has been authorized by FDA under an Emergency Use Authorization (EUA). This test is only authorized for the duration of time the declaration on that circumstances exist justifying the authorization emergency use of in vitro diagnostic tests for detection and/or diagnosis of COVID-19 infection under section 564 (b) (1) of the Act, 21 U.S.C. 360 bbb-3 (b) (1), unless authorization is terminated or revoked sooner. Performed By: #### 2 [id number] ####[place] [address] SARS-CoV-2 (COVID-19) RNA SYED+probe Ql (Unsp spec) Pass Normal Pass [facility] Comment on above: Performed By: #### 2 [id number] ####[place] [address] Specimen source Nom (Unsp spec) Nasal Normal [facility] Comment on above: Performed By: #### 2 [id number] ####[place] [address] ADMITTED TO INTENSIVE CARE UNIT FOR CONDITION OF INTEREST:FIND:PT: Unknown Normal [facility] Comment on above: Performed By: #### 2 [id number] ####[place] [address] EMPLOYED IN A HEALTHCARE SETTING:FIND:PT: Unknown Normal [facility] Comment on above: Performed By: #### 2 [id number] ####[place] [address] FIRST TEST FOR CONDITION OF INTEREST:FIND:PT: Unknown Normal [facility] Comment on above: Performed By: #### 2 [id number] ####[place] [address] HAS SYMPTOMS RELATED TO CONDITION OF INTEREST:FIND:PT: Unknown Normal [facility] Comment on above: Performed By: #### 2 [id number] ####[place] [address] HOSPITALIZED FOR CONDITION OF INTEREST:FIND:PT: Unknown Normal [facility] Comment on above: Performed By: #### 2 [id number] ####[facility] [address] [place] [address] STATUS:FIND:PT: Unknown Normal [facility] Comment on above: Performed By: #### 2 [id number] ####[facility] [address] [place] [address] RESIDES IN A CONGREGATE CARE SETTING:FIND:PT: Unknown Normal [facility] Comment on above: Performed By: #### 2 [id number] ####[facility] [address] [place] [address] Prothrombin Time INRon 07-18 INR Coag (PPP) [Relative time] 1.6 {INR} [facility] Other Prothrombin Time INR [facility] Other Echocardiogramon 05-15-[address], [address] [place] [address] TRANSTHORACIC ECHOCARDIOGRAM REPORT Patient Name: SWATHI [place] Reading Physician: [id number] Ricardo Mcgraw MD, [facility] Study Date: 05/15/2021 Referring [id number] PETEY WOODALL Physician: MRN/PID: [id number] PCP: [id number] Vivi Liao MD Accession/Order#: [id number] Department [facility] Location: Date of : 1955 Fellow: Gender: F Nurse: Admit Date: Design Lead: Karin Ardon [facility], T Height: 160.02 cm CC Report to: Weight: 55.79 kg Study Type: Echocardiogram BSA: 1.57 m2 Blood Pressure: 118 /80 mmHg Diagnosis/ICD: R06.00-Dyspnea, unspecified; 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 PHYSICIAN INTERPRETATION: Left Ventricle: The left ventricular systolic function is normal, with an estimated ejection fraction of 70-75%. There are no regional wall motion abnormalities. The left ventricular cavity size is normal. Spectral Doppler shows an impaired relaxation pattern of left ventricular diastolic filling. Left Atrium: The left atrium is normal in size. Right Ventricle: The right ventricle is normal in size. There is normal right ventricular global systolic function. Right Atrium: The right atrium is normal in size. Aortic Valve: The aortic valve appears abnormal. There is evidence of severe aortic valve stenosis. 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 There is mild to moderate aortic valve regurgitation. The peak instantaneous gradient of the aortic valve is 65.0 mmHg. The mean gradient of the aortic valve is 32.0 mmHg. Peak velocity across the aortic valve is 403 cm/sec C/W peak pressure gradient of 65 mmHg and a mean pressure gradient of 32 mmHG. Mitral Valve: The mitral valve is mild to moderately thickened. There is mild mitral annular calcification. There is trace mitral valve regurgitation. Tricuspid Valve: The tricuspid valve is structurally normal. There is trace to mild tricuspid regurgitation. Pulmonic Valve: The pulmonic valve is structurally normal. There is no indication of pulmonic valve regurgitation. Pericardium: There is no pericardial effusion noted. Aorta: The aortic root is normal. Systemic Veins: The inferior vena cava appears to be of normal size. In comparison to the previous echocardiogram(s): When compared to a study from 11/02/2020, there has been no significant interval changes. CONCLUSIONS: 1. The left ventricular systolic function is normal with a 70-75% estimated ejection fraction. 2. Spectral Doppler shows an impaired relaxation pattern of left ventricular diastolic filling. 3. Peak velocity across the aortic valve is 403 cm/sec C/W peak pressure gradient of 65 mmHg and a mean pressure gradient of 32 mmHG. 4. Severe aortic valve stenosis. 5. 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 6. There is mild to moderate aortic valve regurgitation. 7. When compared to a study from 11/02/2020, there has been no significant interval changes. QUANTITATIVE DATA SUMMARY: 2D MEASUREMENTS: Normal Ranges: Ao Root d: 3.20 cm (2.0-3.7cm) LAs: 3.20 cm (2.7-4.0cm) RVIDd: 2.80 cm (0.9-3.6cm) IVSd: 1.10 cm (0.6-1.1cm) LVPWd: 0.80 cm (0.6-1.1cm) LVIDd: 4.50 cm (3.9-5.9cm) LVIDs: 2.80 cm LV Mass Index: 90.8 g/m2 LV % FS 37.8 % LV SYSTOLIC FUNCTION BY 2D PLANIMETRY (MOD): Normal Ranges: EF-A4C View: 76.7 % (>55%) LV DIASTOLIC FUNCTION: Normal Ranges: MV Peak E: 0.82 m/s (0.7-1.2 m/s) MV Peak A: 1.16 m/s (0.42-0.7 m/s) E/A Ratio: 0.71 (1.0-2.2) MV lateral e' 0.07 m/s MV medial e' 0.06 m/s E/e' Ratio: 11.40 (<8.0) MITRAL VALVE: Normal Ranges: MV Vmax: 1.21 m/s (<1.3m/s) MV peak P.9 mmHg (<5mmHg) MV mean P.0 mmHg (<48mmHg) AORTIC VALVE: Normal Ranges: AoV Vmax: 4.03 m/s (<1.7m/s) AoV Peak P.0 mmHg (<20mmHg) AoV Mean P.0 mmHg (1.7-11.5mmHg) LVOT Max Alli: 0.81 m/s (<1.1m/s) AoV VTI: 87.60 cm (18-25cm) LVOT VTI: 20.70 cm LVOT Diameter: 2.10 cm (1.8-2.4cm) AoV Area, VTI: 0.82 cm2 (2.5-5.5cm2) AoV Area,Vmax: 0.70 cm2 (2.5-4.5cm2) AoV Dimensionless Index: 0.24 AORTIC INSUFFICIENCY: AI Vmax: 4.14 m/s AI Half-time: 522 msec AI Decel Rate: 278.00 cm/s2 TRICUSPID VALVE/RVSP: Normal Ranges: Peak TR Velocity: 2.28 m/s RV Syst Pressure: 23.8 mmHg (< 30mmHg) PULMONIC VALVE: Normal Ranges: PV Max Alli: 0.7 m/s (0.6-0.9m/s) PV Max P.8 mmHg PIEDV: 2.27 m/s PADP: 23.6 mmHg [id number] Ricardo Mcgraw MD, [facility] Electronically signed on 05/16/2021 at 8:55:04 AM Final Normal [facility] Echocardiogramon 11-02-[address], [address], [place] [address] TRANSTHORACIC ECHOCARDIOGRAM REPORT Patient Name: SWATHI VALLADARES Reading Physician: [id number] Petey Woodall MD Study Date: 11/02/2020 Referring Physician: Calvin WOODALL MRN/PID: [id number] PCP: [id number] Vivi Liao MD Accession/Order#: [id number] Department Location: [facility] Date of : 1955 Fellow: Gender: F Nurse: Admit Date: Design Lead: Karin Ardon [facility], T Height: 167.64 cm CC Report to: Weight: 56.70 kg Study Type: Echocardiogram BSA: 1.64 m2 Blood Pressure: 152 /88 mmHg Diagnosis/ICD: Z95.2-Presence of prosthetic heart valve; I34.1-Nonrheumatic mitral (valve) prolapse Indication: #23 Inspiris Aortic Valve Replacement-03/13/2018 Procedure/CPT: Echo Complete w Full Doppler-[id number] Study Detail: The following Echo studies were performed: 2D, M-Mode, Doppler and color flow. PHYSICIAN INTERPRETATION: Left Ventricle: The left ventricular systolic function is normal, with an estimated ejection fraction of 65-70%. There are no regional wall motion abnormalities. The left ventricular cavity size is normal. Spectral Doppler shows an impaired relaxation pattern of left ventricular diastolic filling. Left Atrium: The left atrium is normal in size. Right Ventricle: The right ventricle is normal in size. There is normal right ventricular global systolic function. Right Atrium: The right atrium is normal in size. Aortic Valve: The aortic valve appears abnormal. There is evidence of moderate to severe aortic valve stenosis. 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 The prosthetic aortic valve has stenosis present. There is mild aortic valve regurgitation. The peak instantaneous gradient of the aortic valve is 65.0 mmHg. The mean gradient of the aortic valve is 33.0 mmHg. Mitral Valve: The mitral valve is normal in structure. There is trace mitral valve regurgitation. Tricuspid Valve: The tricuspid valve is structurally normal. There is trace tricuspid regurgitation. Pulmonic Valve: The pulmonic valve is not well visualized. There is trace pulmonic valve regurgitation. Pericardium: There is no pericardial effusion noted. Aorta: The aortic root is normal. CONCLUSIONS: 1. The left ventricular systolic function is normal with a 65-70% estimated ejection fraction. 2. Spectral Doppler shows an impaired relaxation pattern of left ventricular diastolic filling. 3. Moderate to severe aortic valve stenosis. 4. The prosthetic aortic valve has stenosis present. 5. 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 6. There is mild aortic valve regurgitation. QUANTITATIVE DATA SUMMARY: 2D MEASUREMENTS: Normal Ranges: Ao Root d: 2.80 cm (2.0-3.7cm) LAs: 3.00 cm (2.7-4.0cm) RVIDd: 2.70 cm (0.9-3.6cm) IVSd: 1.10 cm (0.6-1.1cm) LVPWd: 0.80 cm (0.6-1.1cm) LVIDd: 4.40 cm (3.9-5.9cm) LVIDs: 2.50 cm LV Mass Index: 84.1 g/m2 LV % FS 43.2 % LV SYSTOLIC FUNCTION BY 2D PLANIMETRY (MOD): Normal Ranges: EF-A4C View: 64.5 % (>55%) LV DIASTOLIC FUNCTION: Normal Ranges: MV Peak E: 0.85 m/s (0.7-1.2 m/s) MV Peak A: 1.21 m/s (0.42-0.7 m/s) E/A Ratio: 0.70 (1.0-2.2) MV lateral e' 0.03 m/s MV medial e' 0.08 m/s E/e' Ratio: 26.40 (<8.0) MITRAL VALVE: Normal Ranges: MV Vmax: 1.38 m/s (<1.3m/s) MV peak P.6 mmHg (<5mmHg) MV mean P.0 mmHg (<48mmHg) MITRAL INSUFFICIENCY: Normal Ranges: MR Vmax: 271.00 cm/s AORTIC VALVE: Normal Ranges: AoV Vmax: 4.03 m/s (<1.7m/s) AoV Peak P.0 mmHg (<20mmHg) AoV Mean P.0 mmHg (1.7-11.5mmHg) LVOT Max Alli: 0.97 m/s (<1.1m/s) AoV VTI: 82.80 cm (18-25cm) LVOT VTI: 17.60 cm LVOT Diameter: 2.10 cm (1.8-2.4cm) AoV Area, VTI: 0.74 cm2 (2.5-5.5cm2) AoV Area,Vmax: 0.83 cm2 (2.5-4.5cm2) AoV Dimensionless Index: 0.21 AORTIC INSUFFICIENCY: AI Vmax: 4.33 m/s AI Half-time: 366 msec AI Decel Rate: 353.50 cm/s2 TRICUSPID VALVE/RVSP: Normal Ranges: Peak TR Velocity: 2.33 m/s RV Syst Pressure: 24.7 mmHg (< 30mmHg) PULMONIC VALVE: Normal Ranges: PV Max Alli: 0.7 m/s (0.6-0.9m/s) PV Max P.1 mmHg [id number] Petey Woodall MD Electronically signed on 11/02/2020 at 5:42:31 PM Final Normal [facility] CT CHEST HIGH RESOLUTIONon 1 NONSPECIFIC INFILTRATES PRIMARILY AT THE RIGHT BASE DISCUSSED ABOVE. [facility], [place] EXAMINATION: CT CHES T HIGH RESOLUTION DATE AND TIME:07/24/2020 6:55 AM CLINICAL HISTORY: Pulmonary Fibrosis shortness of breath. J18.9 Atypical pneumonia ICD10 COMPARISON: None TECHNIQUE: Exam: High-resolution axial CT the chest performed with 1.25mm slices performed at 10 mm intervals using a soft tissue algorithm. Scans obtained with patient prone and supine. No IV contrast administered. All CT scans at this facility use dose modulation, iterative reconstruction, and/or weight based dosing when appropriate to reduce radiation dose to as low as reasonably achievable. FINDINGS Lungs: Right medial basilar consolidation with air bronchograms and traction bronchiectasis. Fine reticulation with associated groundglass opacity in the surrounding adjacent right base and right middle lobe peripherally. Tiny single row of subpleural cystic changes extending along the posteromedial basilar right lung adjacent to the right paravertebral margin. No significant honeycombing. These findings suggest a nonspecific right lower lobe and middle lobe infiltrate/consolidati on. The possibility of nonspecific interstitial pneumonitis or organizing pneumonia are not excluded. Possibility of UIP is not excluded. Small patches of subpleural ground glass reticulation in the anteromedial upper lobes bilaterally. Minimal nonspecific opacities at the left base possibly dependent changes. Imaging features can be seen with(COVID-19) pneumonia, though they are nonspecific and can occur with a variety of infectious or noninfectious processes. Pleura: No pleural effusion or thickening. Mediastinum: Mediastinum and michelle are normal. There are no pathologically enlarged lymph nodes. Vascular structures unremarkable. Hepatic cysts noted in the liver. Osseous structures are normal. [facility]- [place], [place] Tom, po Incoming Radiant Results From [facility] - 07/24/2020 5:22 PM EDT EXAMINATION: CT CHEST HIGH RESOLUTION DATE AND TIME:07/24/2020 6:55 AM CLINICAL HISTORY: Pulmonary Fibrosis shortness of breath. J18.9 Atypical pneumonia ICD10 COMPARISON: None TECHNIQUE: Exam: High-resolution axial CT the chest performed with 1.25mm slices performed at 10 mm intervals using a soft tissue algorithm. Scans obtained with patient prone and supine. No IV contrast administered. All CT scans at this facility use dose modulation, iterative reconstruction, and/or weight based dosing when appropriate to reduce radiation dose to as low as reasonably achievable. FINDINGS Lungs: Right medial basilar consolidation with air bronchograms and traction bronchiectasis. Fine reticulation with associated groundglass opacity in the surrounding adjacent right base and right middle lobe peripherally. Tiny single row of subpleural cystic changes extending along the posteromedial basilar right lung adjacent to the right paravertebral margin. No significant honeycombing. These findings suggest a nonspecific right lower lobe and middle lobe infiltrate/consolidati on. The possibility of nonspecific interstitial pneumonitis or organizing pneumonia are not excluded. Possibility of UIP is not excluded. Small patches of subpleural ground glass reticulation in the anteromedial upper lobes bilaterally. Minimal nonspecific opacities at the left base possibly dependent changes. Imaging features can be seen with(COVID-19) pneumonia, though they are nonspecific and can occur with a variety of infectious or noninfectious processes. Pleura: No pleural effusion or thickening. Mediastinum: Mediastinum and michelle are normal. There are no pathologically enlarged lymph nodes. Vascular structures unremarkable. Hepatic cysts noted in the liver. Osseous structures are normal. IMPRESSION: NONSPECIFIC INFILTRATES PRIMARILY AT THE RIGHT BASE DISCUSSED ABOVE. [place], [place] CT CHEST HIGH RESOLUTION EXAMINATION: CT CHEST HIGH RESOLUTION DATE AND TIME:07/24/2020 6:55 AM CLINICAL HISTORY: Pulmonary Fibrosis shortness of breath. J18.9 Atypical pneumonia ICD10 COMPARISON: None TECHNIQUE: Exam: High-resolution axial CT the chest performed with 1.25mm slices performed at 10 mm intervals using a soft tissue algorithm. Scans obtained with patient prone and supine. No IV contrast administered. All CT scans at this facility use dose modulation, iterative reconstruction, and/or weight based dosing when appropriate to reduce radiation dose to as low as reasonably achievable. FINDINGS Lungs: Right medial basilar consolidation with air bronchograms and traction bronchiectasis. Fine reticulation with associated groundglass opacity in the surrounding adjacent right base and right middle lobe peripherally. Tiny single row of subpleural cystic changes extending along the posteromedial basilar right lung adjacent to the right paravertebral margin. No significant honeycombing. These findings suggest a nonspecific right lower lobe and middle lobe infiltrate/consolidati on. The possibility of nonspecific interstitial pneumonitis or organizing pneumonia are not excluded. Possibility of UIP is not excluded. Small patches of subpleural ground glass reticulation in the anteromedial upper lobes bilaterally. Minimal nonspecific opacities at the left base possibly dependent changes. Imaging features can be seen with(COVID-19) pneumonia, though they are nonspecific and can occur with a variety of infectious or noninfectious processes. Pleura: No pleural effusion or thickening. Mediastinum: Mediastinum and michelle are normal. There are no pathologically enlarged lymph nodes. Vascular structures unremarkable. Hepatic cysts noted in the liver. Osseous structures are normal. IMPRESSION: NONSPECIFIC INFILTRATES PRIMARILY AT THE RIGHT BASE DISCUSSED ABOVE. Interpreted by: Justyn Putnam MD Signed by: Justyn Putnam MD 07/24/20 Final result Normal [facility] Vital Signs Date Time Vital Sign Value Performing Clinician Facility 08-29-2023 13:39-0500 Body height 160 cm Toña Garcia MD Work Phone: [facility] 08-29-2023 13:39-0500 Body weight 54.61 kg Toña Garcia MD Work Phone: [facility] 08-29-2023 13:39-0500 Diastolic blood pressure 90 mm[Hg] Toña Garcia MD Work Phone: [facility] 08-29-2023 13:39-0500 Heart rate 66 /min Toña Garcia MD Work Phone: [facility] 08-29-2023 13:39-0500 Respiratory rate 16 /min Toña Garcia MD Work Phone: [facility] 08-29-2023 13:39-0500 SaO2% (BldA) [Mass fraction] 99 % Toña Garcia MD Work Phone: [facility] 08-29-2023 13:39-0500 Systolic blood pressure 139 mm[Hg] Toña Garcia MD Work Phone: [facility] 03-17-2023 08:33-0400 Body height 160 cm Eric Sol MD Work Phone: [facility] 03-17-2023 08:33-0400 Body temperature 98.2 [degF] Eric Sol MD Work Phone: [facility] 03-17-2023 08:33-0400 Body weight 56.34 kg Eric Sol MD Work Phone: [facility] 03-17-2023 08:33-0400 Diastolic blood pressure 86 mm[Hg] Eric Sol MD Work Phone: [facility] 03-17-2023 08:33-0400 Heart rate 61 /min Eric Sol MD Work Phone: [facility] 03-17-2023 08:33-0400 Respiratory rate 16 /min Eric Sol MD Work Phone: [facility] 03-17-2023 08:33-0400 SaO2% (BldA) [Mass fraction] 99 % Eric Sol MD Work Phone: [facility] 03-17-2023 08:33-0400 Systolic blood pressure 167 mm[Hg] Eric Sol MD Work Phone: [facility] 11-11-2022 10:29-0500 Body height 160 cm Eric Sol MD Work Phone: [facility] 11-11-2022 10:29-0500 Body temperature 97.11 [degF] Eric Sol MD Work Phone: [facility] 11-11-2022 10:29-0500 Body weight 57.06 kg Eric Sol MD Work Phone: [facility] 11-11-2022 10:29-0500 Diastolic blood pressure 88 mm[Hg] Eric Sol MD Work Phone: [facility] 11-11-2022 10:29-0500 Heart rate 60 /min Eric Sol MD Work Phone: [facility] 11-11-2022 10:29-0500 Respiratory rate 16 /min Eric Sol MD Work Phone: [facility] 11-11-2022 10:29-0500 SaO2% (BldA) [Mass fraction] 99 % Eric Sol MD Work Phone: [facility] 11-11-2022 10:29-0500 Systolic blood pressure 158 mm[Hg] Eric Sol MD Work Phone: [facility] 08-08-2022 14:09-0400 Body height 160 cm Arnaldo Judd MD Work Phone: [facility] 08-08-2022 14:09-0400 Body temperature 97 [degF] Arnaldo Judd MD Work Phone: [facility] 08-08-2022 14:09-0400 Body weight 54.43 kg Arnaldo Judd MD Work Phone: [facility] 08-08-2022 14:09-0400 Diastolic blood pressure 79 mm[Hg] Arnaldo Judd MD Work Phone: [facility] 08-08-2022 14:09-0400 Heart rate 76 /min Arnaldo Judd MD Work Phone: [facility] 08-08-2022 14:09-0400 SaO2% (BldA) [Mass fraction] 96 % Arnaldo Judd MD Work Phone: [facility] 08-08-2022 14:09-0400 Systolic blood pressure 141 mm[Hg] Arnaldo Judd MD Work Phone: [facility] 08-01-2022 14:56-0400 Body height 160 cm Eric Sol MD Work Phone: [facility] 08-01-2022 14:56-0400 Body temperature 97.7 [degF] Eric Sol MD Work Phone: [facility] 08-01-2022 14:56-0400 Body weight 54.88 kg Eric Sol MD Work Phone: [facility] 08-01-2022 14:56-0400 Diastolic blood pressure 85 mm[Hg] Eric Sol MD Work Phone: [facility] 08-01-2022 14:56-0400 Heart rate 71 /min Eric Sol MD Work Phone: [facility] 08-01-2022 14:56-0400 Respiratory rate 16 /min Eric Sol MD Work Phone: [facility] 08-01-2022 14:56-0400 SaO2% (BldA) [Mass fraction] 98 % Eric Sol MD Work Phone: [facility] 08-01-2022 14:56-0400 Systolic blood pressure 134 mm[Hg] Eric Sol MD Work Phone: [facility] 06-18-2022 11:30-0400 Body height 165.1 cm Vivi Liao Other [employer] Other 06-18-2022 11:30-0400 Body mass index (BMI) [Ratio] 19.63 kg/m2 Vivi Liao Other [facility] Other 06-18-2022 11:30-0400 Body temperature 97.4 [degF] Vivi Liao Other [facility] Other 06-18-2022 11:30-0400 Body weight 53.52 kg Vivi Liao Other [facility] Other 06-18-2022 11:30-0400 Diastolic blood pressure 70 mm[Hg] Vivi Liao Other [facility] Other 06-18-2022 11:30-0400 SaO2% (BldA) [Mass fraction] 93 % Vivi Liao Other [facility] Other 06-18-2022 11:30-0400 Systolic blood pressure 122 mm[Hg] Vivi Liao Other [facility] Other 05-23-2022 11:32-0400 Body height 160 cm Arnaldo Judd MD Work Phone: [facility] 05-23-2022 11:32-0400 Body temperature 98.49 [degF] Arnaldo Judd MD Work Phone: [facility] 05-23-2022 11:32-0400 Body weight 53.98 kg Arnaldo Judd MD Work Phone: [facility] 05-23-2022 11:32-0400 Diastolic blood pressure 65 mm[Hg] Arnaldo Judd MD Work Phone: [facility] 05-23-2022 11:32-0400 Heart rate 73 /min Arnaldo Judd MD Work Phone: [facility] 05-23-2022 11:32-0400 SaO2% (BldA) [Mass fraction] 99 % Arnaldo Judd MD Work Phone: [facility] 05-23-2022 11:32-0400 Systolic blood pressure 110 mm[Hg] Arnaldo Judd MD Work Phone: [facility] 05-22-2022 14:52-0400 Body height 160 cm Eric Sol MD Work Phone: [facility] 05-22-2022 14:52-0400 Body temperature 97.5 [degF] Eric Sol MD Work Phone: [facility] 05-22-2022 14:52-0400 Body weight 54.25 kg Eric Sol MD Work Phone: [facility] 05-22-2022 14:52-0400 Diastolic blood pressure 66 mm[Hg] Eric Sol MD Work Phone: [facility] 05-22-2022 14:52-0400 Heart rate 79 /min Eric Sol MD Work Phone: [facility] 05-22-2022 14:52-0400 Respiratory rate 16 /min Eric Sol MD Work Phone: [facility] 05-22-2022 14:52-0400 SaO2% (BldA) [Mass fraction] 99 % Eric Sol MD Work Phone: [facility] 05-22-2022 14:52-0400 Systolic blood pressure 113 mm[Hg] Eric Sol MD Work Phone: [facility] 05-16-2022 19:10-0400 Diastolic blood pressure 70 mm[Hg] MD Vivi Liao Work Phone: [facility] 05-16-2022 19:10-0400 Heart rate 71 /min MD Vivi Liao Work Phone: [facility] 05-16-2022 19:10-0400 Respiratory rate 18 /min MD Vivi Liao Work Phone: [facility] 05-16-2022 19:10-0400 SaO2% (BldA) [Mass fraction] 96 % MD Vivi Liao Work Phone: [facility] 05-16-2022 19:10-0400 Systolic blood pressure 126 mm[Hg] MD Vivi Liao Work Phone: [facility] 05-16-2022 16:42-0400 Body height 160.02 cm MD Vivi Liao Work Phone: [facility] 05-16-2022 16:42-0400 Body temperature 97.1 [degF] MD Vivi Liao Work Phone: [facility] 05-16-2022 16:42-0400 Body weight 53.07 kg MD Vivi Liao Work Phone: [facility] 05-16-2022 14:30-0400 Body height 165.1 cm Vivi Liao Other [employer] [facility] [employer] Other 05-16-2022 14:30-0400 Body mass index (BMI) [Ratio] 19.13 kg/m2 Vivi Liao Other [facility] [employer] Other 05-16-2022 14:30-0400 Body weight 52.16 kg Vivi Liao Other [facility] Other 05-16-2022 14:30-0400 Diastolic blood pressure 60 mm[Hg] Vivi Liao Other [facility] Other 05-16-2022 14:30-0400 Systolic blood pressure 112 mm[Hg] Vivi Liao Other [facility] [employer] Other 05-04-2022 17:11-0400 Diastolic blood pressure 78 mm[Hg] [facility] 05-04-2022 17:11-0400 Heart rate 89 /min [facility] 05-04-2022 17:11-0400 Respiratory rate 16 /min [facility] 05-04-2022 17:11-0400 SaO2% (BldA) [Mass fraction] 99 % [facility] 05-04-2022 17:11-0400 Systolic blood pressure 132 mm[Hg] [facility] 05-04-2022 16:32-0400 Hourly Rounding [facility] 05-04-2022 16:32-0400 Promise to Return [facility] 05-04-2022 16:31-0400 Diastolic blood pressure 70 mm[Hg] [facility] 05-04-2022 16:31-0400 Heart rate 85 /min [facility] 05-04-2022 16:31-0400 Mean blood pressure 87 mm[Hg] [facility] 05-04-2022 16:31-0400 Respiratory rate 16 /min [facility] 05-04-2022 16:31-0400 SaO2% (BldA) [Mass fraction] 97 % [facility] 05-04-2022 16:31-0400 Systolic blood pressure 121 mm[Hg] [facility] 05-04-2022 15:49-0400 SaO2% (BldA) [Mass fraction] 97 % [facility] 05-04-2022 15:47-0400 Hourly Rounding [facility] 05-04-2022 15:47-0400 Promise to Return [facility] 05-04-2022 15:14-0400 Diastolic blood pressure 62 mm[Hg] [facility] 05-04-2022 15:14-0400 Heart rate 91 /min [facility] 05-04-2022 15:14-0400 Mean blood pressure 81 mm[Hg] [facility] 05-04-2022 15:14-0400 Respiratory rate 16 /min [facility] 05-04-2022 15:14-0400 Systolic blood pressure 120 mm[Hg] [facility] 05-04-2022 14:07-0400 Body temperature 98.6 [degF] [facility] 05-04-2022 14:07-0400 Mean blood pressure 90 mm[Hg] [facility] 05-04-2022 13:45-0400 Hourly Rounding [facility] 05-04-2022 13:45-0400 Promise to Return [facility] 05-04-2022 13:27-0400 Body temperature 99.14 [degF] [facility] 05-04-2022 13:27-0400 Heart rate 107 /min [facility] 04-23-2022 11:12-0400 Body height 160 cm Toña Garcia MD Work Phone: [facility] 04-23-2022 11:12-0400 Body weight 55.84 kg Toña Garcia MD Work Phone: [facility] 04-23-2022 11:12-0400 Diastolic blood pressure 93 mm[Hg] Toña Garcia MD Work Phone: [facility] 04-23-2022 11:12-0400 Heart rate 65 /min Toña Garcia MD Work Phone: [facility] 04-23-2022 11:12-0400 SaO2% (BldA) [Mass fraction] 100 % Toña Garcia MD Work Phone: [facility] 04-23-2022 11:12-0400 Systolic blood pressure 152 mm[Hg] Toña Garcia MD Work Phone: [facility] 04-22-2022 08:07-0400 Body height 160 cm Pacc 3 Work Phone: [facility] 04-22-2022 08:07-0400 Body temperature 98.91 [degF] Pacc 3 Work Phone: [facility] 04-22-2022 08:07-0400 Body weight 56.25 kg Pacc 3 Work Phone: [facility] 04-22-2022 08:07-0400 Diastolic blood pressure 75 mm[Hg] Pacc 3 Work Phone: [facility] 04-22-2022 08:07-0400 Respiratory rate 18 /min Pacc 3 Work Phone: [facility] 04-22-2022 08:07-0400 SaO2% (BldA) [Mass fraction] 99 % P[facility] Work Phone: [facility] 04-22-2022 08:07-0400 Systolic blood pressure 127 mm[Hg] Pacc 3 Work Phone: [facility] 04-18-2022 09:40-0400 Body height 160 cm Arnaldo Judd MD Work Phone: [facility] 04-18-2022 09:40-0400 Body temperature 97.59 [degF] Arnaldo Judd MD Work Phone: [facility] 04-18-2022 09:40-0400 Body weight 57.15 kg Arnaldo Judd MD Work Phone: [facility] 04-18-2022 09:40-0400 Diastolic blood pressure 78 mm[Hg] Arnaldo Judd MD Work Phone: [facility] 04-18-2022 09:40-0400 Heart rate 80 /min Arnaldo Judd MD Work Phone: [facility] 04-18-2022 09:40-0400 SaO2% (BldA) [Mass fraction] 97 % Arnaldo Judd MD Work Phone: [facility] 04-18-2022 09:40-0400 Systolic blood pressure 141 mm[Hg] Arnaldo Judd MD Work Phone: [facility] 03-19-2022 09:41-0400 Body height 160 cm Rome Barboza MD Work Phone: [facility] 03-19-2022 09:41-0400 Body temperature 97.3 [degF] Rome Barboza MD Work Phone: [facility] 03-19-2022 09:41-0400 Body weight 58.83 kg Rome Barboza MD Work Phone: [facility] 03-19-2022 09:41-0400 Diastolic blood pressure 83 mm[Hg] Rome Barboza MD Work Phone: [facility] 03-19-2022 09:41-0400 Heart rate 91 /min Rome Barboza MD Work Phone: [facility] 03-19-2022 09:41-0400 Respiratory rate 16 /min Rome Barboza MD Work Phone: [facility] 03-19-2022 09:41-0400 SaO2% (BldA) [Mass fraction] 99 % Rome Barboza MD Work Phone: [facility] 03-19-2022 09:41-0400 Systolic blood pressure 142 mm[Hg] Rome Barboza MD Work Phone: [facility] 02-05-2022 08:46-0400 Body height 160 cm Rome Barboza MD Work Phone: [facility] 02-05-2022 08:46-0400 Body temperature 97.59 [degF] Rome Barboza MD Work Phone: [facility] 02-05-2022 08:46-0400 Body weight 57.79 kg Rome Barboza MD Work Phone: [facility] 02-05-2022 08:46-0400 Diastolic blood pressure 74 mm[Hg] Rome Barboza MD Work Phone: [facility] 02-05-2022 08:46-0400 Heart rate 96 /min Rome Barboza MD Work Phone: [facility] 02-05-2022 08:46-0400 Respiratory rate 16 /min Rome Barboza MD Work Phone: [facility] 02-05-2022 08:46-0400 SaO2% (BldA) [Mass fraction] 98 % Rome Barboza MD Work Phone: [facility] 02-05-2022 08:46-0400 Systolic blood pressure 135 mm[Hg] Rome Barboza MD Work Phone: [facility] 01-01-2022 08:42-0400 Body height 160 cm Rome Barboza MD Work Phone: [facility] 01-01-2022 08:42-0400 Body temperature 97.5 [degF] Rome Barboza MD Work Phone: [facility] 01-01-2022 08:42-0400 Body weight 57.15 kg Rome Barboza MD Work Phone: [facility] 01-01-2022 08:42-0400 Diastolic blood pressure 79 mm[Hg] Rome Barboza MD Work Phone: [facility] 01-01-2022 08:42-0400 Heart rate 82 /min Rome Barboza MD Work Phone: [facility] 01-01-2022 08:42-0400 Respiratory rate 16 /min Rome Barboza MD Work Phone: [facility] 01-01-2022 08:42-0400 SaO2% (BldA) [Mass fraction] 98 % Rome Barboza MD Work Phone: [facility] 01-01-2022 08:42-0400 Systolic blood pressure 138 mm[Hg] Rome Barboza MD Work Phone: [facility] 11-01-2021 10:45-0500 Body height 165.1 cm Vivi Liao Other [facility] Other 11-01-2021 10:45-0500 Body mass index (BMI) [Ratio] 20.13 kg/m2 Vivi Liao Other [facility] Other 11-01-2021 10:45-0500 Body weight 54.89 kg Vivi Laio Other [facility] Other 11-01-2021 10:45-0500 Diastolic blood pressure 70 mm[Hg] Vivi Liao Other [facility] Other 11-01-2021 10:45-0500 Systolic blood pressure 130 mm[Hg] Vivi Liao Other [facility] Other 09-06-2021 15:00-0500 Body height 165.1 cm Vivi Liao Other [facility] Other 09-06-2021 15:00-0500 Body mass index (BMI) [Ratio] 20.47 kg/m2 Vivi Liao Other [facility] Other 09-06-2021 15:00-0500 Body weight 55.79 kg Vivi Liao Other [facility] Other 09-06-2021 15:00-0500 Diastolic blood pressure 82 mm[Hg] Vivi Liao Other [facility] Other 09-06-2021 15:00-0500 Systolic blood pressure 160 mm[Hg] Vivi Liao Other [facility] Other Encounters Encounter Date Encounter Type Care Provider Facility Start: 01-12-2024 End: 01-12-2024 ambulatory CAILIN HOWARD Facility:[facility] Start: 01-12-2024 End: 01-12-2024 Admission to same day surgery center Cailin Howard JACY.FUNNEL SETTER Work Phone: General Surgery Comment on above: Hypoglycemia after G I (gastrointestinal) surgery (Primary Dx); S/P subtotal gastrectomy; Postoperative malabsorption; History of gastrointestinal stromal tumor (GIST) Start: 01-12-2024 End: 01-12-2024 Telemedicine consultation with patient Cailin Howard SOFTWARE QUALITY ASSURANCE ANALYST.FUNNEL SETTER Work Phone: [facility] Start: 12-24-2023 Telephone encounter Toña Garcia MD Work Phone: Cardiology Comment on above: Medication Question Start: 12-23-2023 End: 12-23-2023 ambulatory Vivi Liao Facility:[facility] Start: 12-23-2023 End: 12-23-2023 ambulatory MD Vivi Liao Work Phone: [facility] Work Phone: Start: 12-23-2023 End: 12-23-2023 Patient encounter procedure MD Vivi Liao Work Phone: [facility] [place] Work Phone: Start: 12-19-2023 Telephone encounter Toña Garcia MD Work Phone: Cardiology Comment on above: Patient Question Start: 12-19-2023 End: 12-19-2023 ambulatory Toña Garcia MD Work Phone: Cardiology Comment on above: S/P TAVR (transcathe ter aortic valve replacement) (Primary Dx); History of aortic valve replacement Start: 12-19-2023 End: 12-19-2023 Telemedicine consultation with patient Toña Garcia MD Work Phone: [facility] Start: 12-01-2023 End: 12-01-2023 ambulatory Vivi Liao Facility:[facility] Start: 12-01-2023 End: 12-01-2023 Patient encounter procedure MD Vivi Liao Work Phone: [facility] Leoncio Tan Work Phone: Start: 11-21-2023 Telephone encounter Toña Garcia MD Work Phone: Cardiology Comment on above: Appointment Start: 11-10-2023 End: 11-10-[address] Work Phone: Nutrition Therapy Comment on above: 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) Start: 11-10-2023 End: 11-10-2023 Telemedicine consultation with patient Jarod Fajardo RD Work Phone: [facility] Start: 10-13-2023 End: 10-13-2023 ambulatory CAILIN HOWARD Facility:[facility] Start: 09-17-2023 End: 09-17-2023 ambulatory Toña Garcia MD Work Phone: Cardiology Comment on above: CT Start: 09-08-2023 End: 09-08-2023 ambulatory VIVI LIAO Facility:[facility] Start: 09-02-2023 Encounter for preprocedural cardiovascular examination CAILIN HOWARD [facility] Start: 09-02-2023 End: 09-02-2023 ambulatory VIVI LIAO Facility:[facility] Start: 09-02-2023 End: 09-02-[address] (I-Stat) Work Phone: [facility] Start: 09-02-2023 End: 09-02-2023 Subsequent hospital visit by physician Elizabeth Sofia J (I-Stat) Work Phone: Radiology Start: 08-29-2023 End: 08-29-2023 ambulatory VIVI LIAO Facility:[facility] Start: 08-29-2023 End: 08-29-2023 Patient encounter procedure Toña Garcia MD Work Phone: Cardiology Comment on above: S/P TAVR (transcathe ter aortic valve replacement) (Primary Dx); History of aortic valve replacement; Encounter for preprocedural cardiovascular examination; Severe aortic stenosis Start: 08-29-2023 End: 08-29-2023 Patient encounter status Toña Garcia MD Work Phone: [facility] Work Phone: Start: 07-31-2023 Telephone encounter Toña Garcia MD Work Phone: Cardiology Comment on above: Appointment Reschedu led Start: 07-22-2023 End: 07-22-2023 ambulatory CAILIN HOWARD Facility:[facility] Start: 07-22-2023 End: 07-22-2023 Admission to same day surgery center Juliette Butts MD Work Phone: Endocrinology Comment on above: S/P gastrectomy; Hypoglycemia after GI (gastrointestinal) surgery Start: 07-22-2023 End: 07-22-2023 Telemedicine consultation with patient Juliette Butts MD Work Phone: [facility] Start: 06-30-2023 Telephone encounter Toña Garcia MD Work Phone: Cardiology Comment on above: Appointment Reschedu led Start: 06-19-2023 End: 06-19-2023 ambulatory VIVI LIAO Facility:[facility] Start: 06-18-2023 Telephone encounter Shirin Asif Hematology/Oncology Comment on above: Patient Update; Appo intment Start: 06-12-2023 End: 06-12-2023 ambulatory Vivi Liao Other [facility] Other Start: 06-12-2023 Telephone encounter [facility] Start: 06-05-2023 End: 06-05-2023 ambulatory Vivi Liao Facility:[facility] Start: 06-05-2023 End: 06-05-2023 ambulatory MD Vivi Liao Work Phone: [facility] Work Phone: Start: 06-05-2023 End: 06-05-2023 Patient encounter procedure MD Vivi Liao Work Phone: [facility] Start: 06-04-2023 Telephone encounter Linette laws RN Work Phone: Hematology/Oncology Comment on above: 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 (Multiple Myeloma Concerns) Start: 03-19-2023 Orders Only Toña Garcia MD Work Phone: Cardiology Comment on above: S/P TAVR (transcathe ter aortic valve replacement) (Primary Dx); History of aortic valve replacement Start: 03-17-2023 End: 03-17-2023 ambulatory ERIC SOL Facility:[facility] Start: 03-17-2023 End: 03-17-2023 Office outpatient visit 25 minutes Eric Sol MD Work Phone: Hematology/Oncology Comment on above: 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); Polyclonal gammopathy; Elevated blood protein; Megaloblastic anemia due to vitamin B12 deficiency; Malignant neoplasm of stomach, unspecified location (HCC); Interstitial pulmonary disease (HCC); Moderate protein-calorie malnutrition (HCC) Start: 03-10-2023 Chart abstracting Radha hopkins RN Work Phone: Hematology/Oncology Comment on above: Research ([id number] Informed Consent) Start: 03-10-2023 End: 03-10-2023 ambulatory VIVI LIAO Facility:[facility] Start: 11-11-2022 Telephone encounter [facility]egas MD [facility] Comment on above: Nurse Triage Call; R esults Start: 11-11-2022 End: 11-11-2022 Office outpatient visit 25 minutes Eric Sol MD Work Phone: Hematology/Oncology Comment on above: Elevated blood prote in (Primary Dx); Lung nodules; 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); Polyclonal gammopathy Start: 10-09-2022 End: 10-09-2022 ambulatory MD Vivi Liao Work Phone: [facility] Work Phone: Start: 10-09-2022 End: 10-09-2022 Patient encounter procedure MD Vivi Liao Work Phone: [facility] [address] Work Phone: Start: 10-04-2022 Telephone encounter Adriana Bautista RN R adiology Pet CT Comment on above: Orders (CT) Start: 09-16-2022 End: 09-16-2022 ambulatory MD Vivi Liao Work Phone: [facility] Work Phone: Start: 09-16-2022 End: 09-16-2022 Patient encounter procedure MD Vivi Liao Work Phone: [facility] Start: 08-28-2022 E-mail encounter fro m caregiver Cailin Howard APRN.FUNNEL SETTER Work Phone: [facility] Start: 08-28-2022 Follow-up encounter Cailin finch APRN.FUNNEL SETTER Work Phone: General Surgery Comment on above: follow up after appo intment Start: 08-22-2022 End: 08-22-2022 Admission to same day surgery center Cailin Howard APRN.FUNNEL SETTER Work Phone: General Surgery Comment on above: Hypoglycemia after G I (gastrointestinal) surgery (Primary Dx); S/P gastrectomy Start: 08-22-2022 End: 08-22-2022 Telemedicine consultation with patient Cailin Howard APRN.FUNNEL SETTER Work Phone: 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) Start: 08-09-2022 End: 08-09-2022 Telemedicine consultation with patient Eric Sol MD Work Phone: [facility] Start: 08-08-2022 End: 08-08-2022 Patient encounter procedure Arnaldo Judd MD Work Phone: General Surgery Comment on above: History of gastroint estinal stromal tumor (GIST) (Primary Dx); S/P gastrectomy; 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) ; Postsurgical malabsorption, not elsewhere classified ; Nutritional anemia, unspecified Start: 08-01-2022 End: 08-01-2022 Nutrition therapy Eric Sol MD Work Phone: Hematology/Oncology Comment on above: 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); Moderate protein-calorie malnutrition (HCC) Start: 08-01-2022 End: 08-01-2022 Patient encounter procedure Eric Sol MD Work Phone: [facility] Start: 06-18-2022 End: 06-18-2022 ambulatory Vivi Liao Other [facility] Other Start: 06-18-2022 Patient encounter procedure Vivi [facility]ISCO[facility] Start: 06-03-2022 End: 06-03-2022 ambulatory Vivi Liao Other [facility] Other Start: 06-03-2022 Telephone encounter Vivi BRISCOE [facility] Start: 05-24-2022 Telephone encounter Eric vanegas MD Work Phone: Hematology/Oncology Comment on above: Cancer Claims Start: 05-23-2022 End: 05-23-2022 Patient encounter procedure Arnaldo Judd MD Work Phone: General Surgery Comment on above: History of gastroint estinal stromal tumor (GIST) (Primary Dx) Start: 05-22-2022 End: 05-22-2022 Patient encounter procedure Eric Sol MD Work Phone: [facility] Start: 05-22-2022 End: 05-22-2022 ambulatory Eric Sol MD Work Phone: Hematology/Oncology Comment on above: 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); Malignant neoplasm of stomach, unspecified location (HCC); Polyclonal gammopathy Start: 05-22-2022 Telephone encounter Vivi asif [facility] Start: 05-17-2022 End: 05-17-2022 ambulatory Vivi Liao Other [facility] Other Start: 05-17-2022 Telephone encounter Vivi asif [facility] Start: 05-16-2022 End: 05-16-2022 Emergency department patient visit MD Vivi Liao Work Phone: [facility] Start: 05-16-2022 Office outpatient vi sit 15 minutes Vivi Liao [facility] Start: 05-16-2022 End: 05-16-2022 ambulatory Cailin Howard JACY.FUNNEL SETTER Work Phone: General Surgery Comment on above: Diarrhea due to barb bsorption (Primary Dx); S/P subtotal gastrectomy Start: 05-16-2022 End: 05-16-2022 Telemedicine consultation with patient Cailin Howard SOFTWARE QUALITY ASSURANCE ANALYST.FUNNEL SETTER Work Phone: [facility] Start: 05-15-2022 End: 05-16-[address] KASSIE ARROYO Facility: Start: 05-08-2022 End: 05-08-2022 ambulatory Vivi Liao Other [facility] Other Start: 05-08-2022 Telephone encounter Vivi asif [facility] Start: 05-04-2022 End: 05-04-2022 [facility] Start: 05-03-2022 Telephone encounter Arnaldo graves MD Work Phone: General Surgery Comment on above: concern about loveno x injection Start: 05-02-2022 Telephone encounter Graham Crouch [facility] Department Comment on above: PostOp Follow-up Start: 04-30-2022 Orders Only Rome bunn MD Work Phone: Hematology/Oncology Comment on above: 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) Results; Orders Appointment Start: 04-24-2022 End: 04-30-2022 Evaluation and management of inpatient ARNALDO JUDD Facility:[facility] Start: 04-23-2022 Telephone encounter Arnaldo graves MD Work Phone: General Surgery Comment on above: PreOp Call Start: 04-23-2022 End: 04-23-2022 Patient encounter procedure Toña Garcia MD Work Phone: Cardiology Comment on above: S/P TAVR (transcathe ter aortic valve replacement) (Primary Dx); History of aortic valve replacement Start: 04-22-2022 Telephone encounter Virgie Gar APRN.[facility] Work Phone: Pre Anesthesia Comment on above: Pre-Op Visit Start: 04-22-2022 End: 04-22-2022 Admission to establishment [place] [id number] Work Phone: [facility] Start: 04-22-2022 End: 04-22-2022 [facility] 3 Work Phone: Pre Anesthesia Comment on above: Pre-op evaluation (P rimary Dx); Gastrointestinal stromal tumor (GIST) (HCC); Nonrheumatic aortic valve stenosis; Congestive heart failure, unspecified HF chronicity, unspecified heart failure type (HCC); S/P TAVR (transcatheter aortic valve replacement); History of gastrointestinal stromal tumor (GIST); Gastroesophageal reflux disease without esophagitis; Cerebrovascular accident (CVA), unspecified mechanism (HCC); Chronic obstructive pulmonary disease, unspecified COPD type (HCC); Lupus (HCC) Start: 04-22-2022 End: 04-22-2022 Preprocedural examination done Pac 3 Work Phone: Pre Anesthesia Start: 04-19-2022 Telephone encounter Arnaldo graves MD Work Phone: General Surgery Comment on above: Patient Question Start: 04-18-2022 ambulatory Mark Gannon (Rn) Ursula maciel RN General Surgery Comment on above: Education Of Patient /family Tumor Start: 04-18-2022 End: 04-18-2022 Patient encounter procedure Arnaldo Judd MD Work Phone: General Surgery Comment on above: Gastrointestinal str omal tumor (GIST) of stomach (HCC) (Primary Dx) Start: 04-17-2022 Telephone encounter Arnaldo graves MD Work Phone: General Surgery Comment on above: Appointment Start: 03-22-2022 Telephone encounter Rhiannon Maza RN Work Phone: Hematology/Oncology Comment on above: Care Coordination (C T brain results) Start: 03-19-2022 End: 03-19-2022 ambulatory Rome Barboza MD Work Phone: Hematology/Oncology Comment on above: 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); Syncope and collapse; Nausea Start: 03-19-2022 End: 03-19-2022 Patient encounter procedure Rome Barboza MD Work Phone: [facility] Start: 02-25-2022 End: 02-25-2022 ambulatory Vivi Liao Other [facility] Other Start: 02-25-2022 Telephone encounter [facility] Start: 02-05-2022 End: 02-05-2022 ambulatory oRme Barboza MD Work Phone: Hematology/Oncology Comment on above: 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) Start: 02-05-2022 End: 02-05-2022 Patient encounter procedure Rome Barboza MD Work Phone: [facility] Start: 01-29-2022 Telephone encounter Rome Barboza MD Work Phone: Hematology/Oncology Comment on above: [employer] Paper work Start: 01-01-2022 End: 01-01-2022 ambulatory Rome Barboza MD Work Phone: Hematology/Oncology Comment on above: 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); Normocytic anemia Start: 01-01-2022 End: 01-01-2022 Patient encounter procedure Rome Barboza MD Work Phone: [facility] Start: 11-08-2021 ambulatory CHOLO CUELLO Facility:[facility] Start: 11-01-2021 End: 11-01-2021 ambulatory Vivi Liao Other [facility] Other Start: 11-01-2021 Office outpatient vi sit 15 minutes Vivi Liao [facility] Start: 10-19-2021 End: 10-19-2021 ambulatory Vivi Liao Other [facility] Other Start: 10-19-2021 Telephone encounter Vivi asif [facility] Start: 10-18-2021 ambulatory ARNALDO JUDD Facility: [facility] Start: 09-06-2021 End: 09-06-2021 ambulatory Vivi Liao Other [facility] Other Start: 09-06-2021 Office outpatient vi sit 15 minutes Vivi Liao [facility] Start: 08-06-2021 End: 08-06-2021 ambulatory Ivory Romo Other [facility] Other Start: 08-06-2021 Telephone encounter Ivory Romo [facility] Start: 07-23-2021 Telephone encounter Vivi asif [facility] Start: 07-19-2021 Telephone encounter Vivi asif [facility] Start: 07-18-2021 ([facility] R A/c) [facility] Re peat A/C Ivory Romo [facility] Start: 07-24-2020 End: 07-27-2020 Patient encounter procedure LUCHO JAUREGUI [facility] Start: 07-24-2020 End: 07-26-2020 Subsequent hospital visit by physician [address] [facility] Room [address] [facility] [address] Scan Comment on above: Atypical pneumonia; Postinflammatory pulmonary fibrosis (HCC) Bronchiectasis with acute exacerbation (HCC); Postinflammatory pulmonary fibrosis (HCC) Procedures Date Procedure Procedure Detail Performing Clinician Start: 12-01-2023 Urine culture MD Vivi Liao Work Phone: Start: 09-02-2023 Ct angiography chest w/contrast/noncontrast Toña Garcia MD Work Phone: Start: 09-02-2023 Creatinine [Mass/vol ume] in Serum or Plasma [facility] Provider Start: 09-16-2022 Urine culture MD Vivi Liao Work Phone: Start: 09-16-2022 Dual energy X-ray absorptiometry MD Vivi Liao Work Phone: Start: 08-21-2022 Lipid 1996 panel - S rogelio or Plasma Shirin Salvador RN Start: 05-16-2022 Computed tomography of abdomen and pelvis with contrast MD Vivi Liao Work Phone: Start: 04-26-2022 Wedge resection of stomach Yamini Adam Comment on above: WITH TUMOR Start: 03-19-2022 Adult depression scr eening assessment Rome Barboza MD Work Phone: Start: 12-03-2021 Adult depression scr eening assessment Rome Barboza MD Work Phone: Start: 07-25-2020 PULMONARY FUNCTION T EST REPORT KAMAL CHABAN Start: 07-25-2020 PULMONARY FUNCTION T EST REPORT [facility] Scanning Start: 07-24-2020 Ct thorax w/o contra st material KAMAL CHABAN Start: 07-24-2020 Brncdilat rspse spmt ry pre&post-brncdilat admn KAMAL CHABAN Start: 07-24-2020 Ct thorax w/o contra st material Kamal Chaban Work Phone: Start: 07-24-2020 Brncdilat rspse spmt ry pre&post-brncdilat admn Kamal Chaban Work Phone: Excision of laryngeal polyp Astrit Hajdari Hysterectomy Astrit Hayimiari Replacement of aortic valve Astrit Jair Urine culture MD Vivi sanders Work Phone: Plan of Treatment Date Care Activity Detail Author Start: 08-21-2027 Lipid 1996 panel - Serum or Plasma Lipid Screening [facility] Start: 08-21-2027 Lipid panel Lipid Screening [facility] Start: 08-21-2027 LIPID SCREEN LIPID SCREEN [facility] Start: 09-08-2026 Diabetes Screening Diabetes Screening [facility] Start: 06-19-2026 Diabetes Screening Diabetes Screening [facility] Start: 03-10-2026 DIABETES SCREEN DIABETES SCREEN [facility] Start: 03-10-2026 Diabetes Screening Diabetes Screening [facility] Start: 11-11-2025 DIABETES SCREEN DIABETES SCREEN [facility] Start: 08-21-2025 DIABETES SCREEN DIABETES SCREEN [facility] Start: 07-24-2025 DIABETES SCREEN DIABETES SCREEN [facility] Start: 05-22-2025 DIABETES SCREEN DIABETES SCREEN [facility] Start: 04-30-2025 DIABETES SCREEN DIABETES SCREEN [facility] Start: 04-22-2025 DIABETES SCREEN DIABETES SCREEN [facility] Start: 03-19-2025 DIABETES SCREEN DIABETES SCREEN [facility] Start: 02-05-2025 DIABETES SCREEN DIABETES SCREEN [facility] Start: 01-01-2025 DIABETES SCREEN DIABETES SCREEN [facility] Start: 06-06-2024 Influenza vaccination Influenza Vaccine (Season Ended) [facility] Start: 01-12-2024 End: 04-12-2024 Retinol [Mass/volume] in Serum or Plasma VITAMIN A/RETINOL Lab Routine S/P subtotal gastrectomy Postoperative malabsorption Expected: 01/12/2024, Expires: 04/12/2024 [facility] Work Phone: Comment on above: Expected: 01/12/2024, Expires: Start: 01-12-2024 End: 04-12-2024 VITAMIN B1 (THIAMINE), WHOLE BLOOD VITAMIN B1 (THIAMINE), WHOLE BLOOD Lab Routine S/P subtotal gastrectomy Postoperative malabsorption Expected: 01/12/2024, Expires: 04/12/2024 [facility] Work Phone: Comment on above: Expected: 01/12/2024, Expires: Start: 01-12-2024 End: 04-12-2024 Zinc [Mass/volume] in Serum or Plasma ZINC BLD Lab Routine S/P subtotal gastrectomy Postoperative malabsorption Expected: 01/12/2024, Expires: 04/12/2024 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 Work Phone: Comment on above: Expected: 09/16/2023 (Approximate), Expi res: 03/17/2024 Start: 09-16-2023 End: 04-15-2024 Ct abdomen & pelvis w/contrast material CT ABD/PEL W IVCON Radiology Routine Malignant neoplasm of stomach, unspecified location (HCC) Expected: 09/16/2023 (Approximate), Expires: 04/15/2024 [facility] Work Phone: Comment on above: Expected: 09/16/2023 (Approximate), Expi res: 04/15/2024 Start: 09-16-2023 End: 04-15-2024 CT CHEST W IVCON CT CHEST W IVCON Radiology Routine Interstitial pulmonary disease (HCC) Expected: 09/16/2023 (Approximate), Expires: 04/15/2024 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 Work Phone: Comment on above: Expected: 09/16/2023 (Approximate), Expi res: 03/17/2024 Start: 06-11-2023 End: 06-04-2024 [id number] [Mass/volume] in Serum or Plasma B2 MICROGLOBULIN B Lab Routine Polyclonal gammopathy Expected: 06/11/2023 (Approximate), Expires: 06/04/2024 [facility] Work Phone: Comment on above: Expected: 06/11/2023 (Approximate), Expi res: 06/04/2024 Start: 06-11-2023 End: 06-04-2024 Calcium.ionized [Moles/volume] in Blood CALCIUM IONIZED BLOOD Lab Routine Polyclonal gammopathy Expected: 06/11/2023 (Approximate), Expires: 06/04/2024 [facility] Work Phone: Comment on above: Expected: 06/11/2023 (Approximate), Expi res: 06/04/2024 Start: 06-11-2023 End: 06-04-2024 CBC W Auto Differential panel - Blood CBC + DIFF Lab Routine Polyclonal gammopathy Expected: 06/11/2023 (Approximate), Expires: 06/04/2024 [facility] Work Phone: Comment on above: Expected: 06/11/2023 (Approximate), Expi res: 06/04/2024 Start: 06-11-2023 End: 06-04-2024 Comprehensive metabolic 2000 panel - Serum or Plasma COMP METABOLIC PANEL Lab Routine Polyclonal gammopathy Expected: 06/11/2023 (Approximate), Expires: 06/04/2024 [facility] Work Phone: Comment on above: Expected: 06/11/2023 (Approximate), Expi res: 06/04/2024 Start: 06-11-2023 End: 08-11-2023 KAPPA/BEACH,FREE,SER KAPPA/BEACH,FREE,SER Lab Routine Polyclonal gammopathy Expected: 06/11/2023 (Approximate), Expires: 08/11/2023 [facility] Work Phone: Comment on above: Expected: 06/11/2023 (Approximate), Expi res: 08/11/2023 Start: 06-11-2023 End: 06-04-2024 Lactate dehydrogenase [Enzymatic activity/volume] in Serum or Plasma LD LACTATE DEHYDRO Lab Routine Polyclonal gammopathy Expected: 06/11/2023 (Approximate), Expires: 06/04/2024 [facility] Work Phone: Comment on above: Expected: 06/11/2023 (Approximate), Expi res: 06/04/2024 Start: 06-11-2023 End: 06-04-2024 MONOCLONAL PROTEIN, SERUM (BLOOD) MONOCLONAL PROTEIN, SERUM (BLOOD) Lab Routine Polyclonal gammopathy Expected: 06/11/2023 (Approximate), Expires: 06/04/2024 [facility] Work Phone: Comment on above: Expected: 06/11/2023 (Approximate), Expi res: 06/04/2024 Start: 06-11-2023 End: 06-04-2024 Phosphate [Mass/volume] in Serum or Plasma PHOSPHORUS INORGANIC Lab Routine Polyclonal gammopathy Expected: 06/11/2023 (Approximate), Expires: 06/04/2024 [facility] Work Phone: Comment on above: Expected: 06/11/2023 (Approximate), Expi res: 06/04/2024 Start: 06-11-2023 End: 06-04-2024 PROTEIN ELECTROPHORESIS SERUM W/INTERP PROTEIN ELECTROPHORESIS SERUM W/INTERP Lab Routine Polyclonal gammopathy Expected: 06/11/2023 (Approximate), Expires: 06/04/2024 [facility] Work Phone: Comment on above: Expected: 06/11/2023 (Approximate), Expi res: 06/04/2024 Start: 06-11-2023 End: 06-04-2024 Urate [Mass/volume] in Serum or Plasma URIC ACID BLOOD Lab Routine Polyclonal gammopathy Expected: 06/11/2023 (Approximate), Expires: 06/04/2024 [facility] Work Phone: Comment on above: Expected: 06/11/2023 (Approximate), Expi res: 06/04/2024 Start: 06-06-2023 Covid-19 Vaccine () Covid-19 Vaccine () [facility] Start: 06-06-2023 Influenza vaccination [facility] Start: 06-05-2023 Bacteria identified in Urine by Culture [facility] Start: 06-05-2023 Hemolytic complement CH50 level [facility] Start: 06-05-2023 [facility] Start: 03-19-2023 Adult depression screening assessment DEPRESSION SCREENING [facility] Start: 03-11-2023 End: 11-19-2023 [id number] [Mass/volume] in Serum or Plasma B2 MICROGLOBULIN B Lab Routine 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 Work Phone: Comment on above: Expected: 03/11/2023 (Approximate), Expi res: 11/19/2023 Start: 03-11-2023 End: 11-19-2023 CBC W Auto Differential panel - Blood 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 Work Phone: Comment on above: Expected: 03/11/2023 (Approximate), Expi res: 11/19/2023 Start: 03-11-2023 End: 11-19-2023 Comprehensive metabolic 2000 panel - Serum or Plasma 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 Work Phone: Comment on above: Expected: 03/11/2023 (Approximate), Expi res: 11/19/2023 Start: 12-03-2022 Adult depression screening assessment DEPRESSION SCREENING [facility] Start: 11-11-2022 End: 11-11-2023 MONOCLONAL PROTEIN, SERUM (BLOOD) [facility] Work Phone: Comment on above: Expected: 11/11/2022, Expires: 4 Start: 11-11-2022 End: 11-11-2023 PROTEIN ELECTROPHORESIS SERUM W/INTERP 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 Work Phone: Comment on above: Expected: 08/26/2022, Expires: 3 Start: 07-22-2022 End: 05-22-2023 CBC W Auto Differential panel - Blood CBC + DIFF Lab Routine Malignant neoplasm of stomach, unspecified location (HCC) Expected: 07/22/2022 (Approximate), Expires: 05/22/2023 [facility] Work Phone: Comment on above: Expected: 07/22/2022 (Approximate), Expi res: 05/22/2023 Start: 07-22-2022 End: 05-22-2023 Comprehensive metabolic 2000 panel - Serum or Plasma COMP METABOLIC PANEL Lab Routine Malignant neoplasm of stomach, unspecified location (HCC) Expected: 07/22/2022 (Approximate), Expires: 05/22/2023 [facility] Work Phone: Comment on above: Expected: 07/22/2022 (Approximate), Expi res: 05/22/2023 Start: 07-22-2022 End: 06-21-2023 Ct abdomen & pelvis w/contrast material CT ABD/PEL W IVCON Radiology Routine Malignant neoplasm of stomach, unspecified location (HCC) Expected: 07/22/2022 (Approximate), Expires: 06/21/2023 [facility] Work Phone: Comment on above: Expected: 07/22/2022 (Approximate), Expi res: 06/21/2023 Start: 07-22-2022 End: 06-21-2023 CT CHEST W IVCON CT CHEST W IVCON Radiology Routine Malignant neoplasm of stomach, unspecified location (HCC) Expected: 07/22/2022 (Approximate), Expires: 06/21/2023 [facility] Work Phone: Comment on above: Expected: 07/22/2022 (Approximate), Expi res: 06/21/2023 Start: 06-06-2022 Influenza vaccination [facility] Start: 04-19-2022 End: 06-19-2022 TYPE AND SCREEN,30 DAY TYPE AND SCREEN,30 DAY Blood Bank Routine 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) Expected: 04/19/2022, Expires: 06/19/2022 [facility] Work Phone: Comment on above: Expected: 04/19/2022, Expires: 2 Start: 04-17-2022 End: 04-17-2023 SARS-CoV-2 (COVID-19) RNA [Presence] in Respiratory specimen by SYED with probe detection PRE-PROCEDURE & PRE-OPERATIVE COVID Microbiology Routine 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) Expected: 04/17/2022, Expires: 04/17/2023 [facility] Work Phone: Comment on above: Expected: 04/17/2022, Expires: 3 Start: 01-01-2022 End: 03-03-2022 Haptoglobin [Mass/volume] in Serum or Plasma [facility] Work Phone: Comment on above: Expected: 01/01/2022, Expires: 2 Start: 10-06-2021 ADVANCE DIRECTIVE DISCUSSION ADVANCE DIRECTIVE DISCUSSION [facility] Start: 10-06-2021 DEPRESSION ASSESSMENT DEPRESSION ASSESSMENT [facility] Start: 06-06-2021 Influenza vaccination INFLUENZA (#1) [facility] Start: 08-15-2020 End: 08-15-2020 Office Visit 08/15/2020 Office Visit Pulmonology Lucho Jauregui MD [address] [address] [phone] [facility] Start: 07-24-2020 Annual Wellness Visit (AWV) Annual Wellness Visit (AWV) [place] Start: 07-04-2020 Annual Wellness Visit (AWV) Annual Wellness Visit (AWV) [place] Start: 06-06-2020 Influenza vaccination Flu vaccine (#1) [place], [place] Start: 2020 BONE DENSITY BONE DENSITY [facility] Start: 2020 Bone Density Screening Bone Density Screening [facility] Start: 2020 Pneumococcal 65+ years Vaccine (1 of 1 - PPSV23) Pneumococcal 65+ years Vaccine (1 of 1 - PPSV23) [place], [place] Start: 2020 PNEUMOVAX AGE 65 AND OVER WITH 5YR LOOKBACK (#1) PNEUMOVAX AGE 65 AND OVER WITH 5YR LOOKBACK (#1) [facility] Start: 2020 Screening for osteoporosis Bone Density Screening [facility] Start: 2015 RSV Vaccine (1 - 1-dose 60+ series) RSV Vaccine (1 - 1-dose 60+ series) [facility] Start: 2010 Screening for osteoporosis DEXA (modify frequency per FRAX score) [place], [place] Start: 08-05-2007 LIPID SCREEN LIPID SCREEN [facility] Start: 2005 Screening for malignant neoplasm of breast Breast cancer screen [place], [place] Start: 2005 Screening for malignant neoplasm of colon Colon cancer screen colonoscopy [place], [place] Start: 2005 Shingles Vaccine (1 of 2) Shingles Vaccine (1 of 2) [place], [place] Start: 2005 SHINGRIX VACCINE (1 of 2) SHINGRIX VACCINE (1 of 2) [facility] Start: 2000 COLOGUARD (FIT-DNA) COLOGUARD (FIT-DNA) [facility] Start: 2000 Colonoscopy COLONOSCOPY [facility] Start: 2000 COLORECTAL CANCER SCREENING COLORECTAL CANCER SCREENING [facility] Start: [address] COLONOGRAPHY [facility] Start: 2000 FECAL OCCULT BLOOD FECAL OCCULT BLOOD [facility] Start: 2000 Screening for malignant neoplasm of colon [facility] Start: 2000 SIGMOIDOSCOPY SIGMOIDOSCOPY [facility] Start: 1995 Lipid panel Lipid screen [place] Start: 1995 Mammography [facility] Start: 1995 Screening for malignant neoplasm of breast Mammogram Screening [facility] Start: 1985 Zoledronic acid therapy ALPHA-1 ANTITRYPSIN DEFICIENCY SCREENING [facility] Start: 1974 DTaP/Tdap/Td vaccine (1 - Tdap) DTaP/Tdap/Td vaccine (1 - Tdap) [place] Start: 1974 SHINGRIX VACCINE (1 of 2) SHINGRIX VACCINE (1 of 2) [facility] Start: 1974 Urine microalbumin profile [facility] Start: 1973 ANNUAL PCP TEAM CHRONIC DISEASE VISIT ANNUAL PCP TEAM CHRONIC DISEASE VISIT [facility] Start: 1973 HEPATITIS C SCREENING HEPATITIS C SCREENING [facility] Start: 1973 Hepatitis C screening Hepatitis C Screening [facility] Start: 1970 HIV screening HIV screen [place], [place] Start: 1967 COVID-19 VACCINE (1) COVID-19 VACCINE (1) [facility] Start: 1961 Pneumococcal Vaccine: 65+ (1 - PCV) Pneumococcal Vaccine: 65+ (1 - PCV) [facility] Start: 1961 Pneumococcal Vaccine: 65+ (1 of 2 - PCV) Pneumococcal Vaccine: 65+ (1 of 2 - PCV) [facility] Start: 1961 PNEUMOCOCCAL: 65+ (1 - PCV) PNEUMOCOCCAL: 65+ (1 - PCV) [facility] Start: 1960 COVID-19 VACCINE (#1) COVID-19 VACCINE (#1) [facility] Start: 1955 COVID-19 VACCINE (#1) COVID-19 VACCINE (#1) [facility] Start: 1955 Hepatitis C screening Hepatitis C screen [place], [place] Bacteria identified in Urine by Culture [facility] End: 01-01-2023 CBC W Auto Differential panel - Blood CBC + DIFF Lab Routine 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 Work Phone: Comment on above: Every other week for 10 Occurrences star kiara 01/01/2022 until 01/01/2023, 1 completed Clostridioides diffi cile toxin genes [Presence] in Stool by SYED with probe detection C. DIFFICILE PCR Lab Routine Diarrhea due to malabsorption Ordered: 05/16/2022 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 Work Phone: Comment on above: 1 Occurrences starting 03/19/2022 until 04/18/2023 End: 04-18-2023 Ct head/brain w/o contrast material CT BRAIN WO IVCON Radiology Routine Syncope and collapse 1 Occurrences starting 03/19/2022 until 04/18/2023 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 Work Phone: Comment on above: 1 Occurrences starting 03/19/2022 until 04/18/2023 End: 09-27-2024 CTA CHEST/ABD/PEL (GATED) W IVCON CTA CHEST/ABD/PEL (GATED) W IVCON Radiology Routine Encounter for preprocedural cardiovascular examination Severe aortic stenosis 1 Occurrences starting 08/29/2023 until 09/27/2024 [facility] Work Phone: Comment on above: 1 Occurrences starting 08/29/2023 until 09/27/2024 End: 12-18-2024 ECHO WITH AGITATED SALINE CONTRAST ECHO WITH AGITATED SALINE CONTRAST Cardiology Routine S/P TAVR (transcatheter aortic valve replacement) History of aortic valve replacement 1 Occurrences starting 12/19/2023 until 12/18/2024 [facility] Work Phone: Comment on above: 1 Occurrences starting 12/19/2023 until 12/18/2024 End: 04-23-2023 Echocardiography ECHO Cardiology Routine S/P TAVR (transcatheter aortic valve replacement) History of aortic valve replacement 1 Occurrences starting 04/23/2022 until 04/23/2023 [facility] Work Phone: Comment on above: 1 Occurrences starting 04/23/2022 until 04/23/2023 End: 03-19-2024 Echocardiography ECHO Cardiology Routine S/P TAVR (transcatheter aortic valve replacement) History of aortic valve replacement 1 Occurrences starting 03/19/2023 until 03/19/2024 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 Work Phone: Sjogrens syndrome-A extractable nuclear Ab [Units/volume] in Serum [facility] Sjogrens syndrome-B extractable nuclear Ab [Units/volume] in Serum [facility] Rodriguez extractable nu clear Ab [Units/volume] in Serum [facility] TYPE AND SCREEN,30 DAY TYPE AND SCREEN,30 DAY Blood Bank Routine 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) 04/22/2022 8:[address] [facility] Work Phone: [facility] c [facility] c [facility] c [facility] [facility] Immunizations Immunization Date Immunization Notes Care Provider [facility] 08-06-2020 influenza, seasonal, injectable Rome Barboza MD Work Phone: [facility] 08-06-2020 influenza virus vacc ine, unspecified formulation Shirin Salvador RN [facility] 06-29-2020 influenza, injectabl e, quadrivalent, preservative free Rome Barboza MD Work Phone: [facility] 07-08-2019 influenza, seasonal, injectable Rome Barboza MD Work Phone: [facility] Payers Date Payer Category Payer Unknown [id number] 2023 Self-pay [id number] 2020 Medicare [id number] 2020 Medicare [id number] 2020 Unknown [employer] [place] [employer] [place] [employer]PPLE[employer] [id number] 2020-Present [phone] [id number] [place] [address] Indemnity [id number] 2020 Unknown [employer] [place] [employer] [place] [employer] SUPPLEMENT [id number] 2020-Present [phone] [address] [place] [address] Indemnity [id number] 2014 Unknown [id number] 1959 Medicare [id number] 1959 Self-pay [id number] 1959 Unknown [id number] 1955 Unknown [id number] 182 1955 Unknown [id number] 182 1955 Unknown [id number] Private Health Insurance [facility] [id number] Unknown [id number] Unknown [id number] Unknown [employer] BC/BS [id number] Unknown [id number] Unknown [id number] Unknown [id number] 531 Social History Date Type Detail Facility Start: 07-04-2020 End: 11-11-2022 Tobacco smoking status NHIS Never smoker [facility] Start: 07-04-2020 End: 11-11-2022 Tobacco use and exposure Never used [place] Start: 07-04-2020 Alcohol intake Lifetime non-drinker (finding) [place] Start: 07-04-2020 History SDOH [facility]: 1955 [facility] Start: 01-01-2022 End: 04-18-2022 Alcohol intake Current drinker of alcohol (finding) [facility] Start: 08-17-2021 History SDOH Alcohol Comment rare [facility] Start: 12-22-2021 End: 08-21-2022 Exposure to SARS-CoV-2 (event) Not sure [facility] Start: 03-17-2023 End: 09-17-2023 Sex Assigned At [facility] Other Start: 04-22-2022 End: 10-13-2023 Alcohol intake Ex-drinker (finding) [facility] Tobacco smoking status No Smoking Status Entered [facility] Start: 1955 Sex Assigned At Female F [facility] Start: 03-17-2023 End: 09-17-2023 History of Social function [facility] Adult Depression Screening Assessment 0 [facility] NEGATED: Highlighted rowStart: NINF History of tobacco use Passive smoker [facility] Medical Equipment Procedure Code Equipment Code Equipment Origin al Text Equipment Identifier Dates Camilla Thk1.65mm P tfe 4x.5in Cardiovascular Sterile - [id number] Start: 03-13-2018 Valve Peterson Inspiris Resilia 23mm Pericardial Aortic Bioprosthesis - [id number] Start: 03-13-2018 Comment on above: Description: aortic valve replacement Valve Harinder 3 Commander Peterson 23mm Aortic Transcatheter Ultra Low - [id number] Start: 11-29-2021 TVTO OBTURATOR SYSTEM FDA Sta rt: 09-19-2017 TVTO OBTURATOR SYSTEM FDA Sta rt: 09-19-2017 TVTO OBTURATOR SYSTEM FDA Sta rt: 09-19-2017 TVTO OBTURATOR SYSTEM FDA Sta rt: 09-19-2017 TVTO OBTURATOR SYSTEM FDA Sta rt: 09-19-2017 Functional Status Date Assessment Result Facility 05-04-2022 Functional Status N/A [facility] Clinical Notes 01-07-2018 to 01-12-2024 Cailin Howard APRN.FUNNEL SETTER - 01/12/2024 2:25 PM EDTTelephone Encounter - Ceasar Hoover Tre - 12/24/2023 3:05 PM EDTTelephone Encounter - MookieAstonenRORY - 12/24/2023 2:40 PM EDT Note Date & Type Note Facility 01-12-2024 Note HNO ID: [id number] Author: CAILIN HOWARD APRN.CNP Service: ? Author Type: Nurse Practitioner Type: Progress Notes Filed: 01/12/2024 17:06 Note Text: Assessment ESTABLISHED PATIENT Virtual visit: I have communicated my name and active licensure. The patient's identity and physical location were verified at the time of this visit. Either the patient or their legal representative government relations has been informed of the risks and benefits of -- and alternatives to -- treatment through a remote evaluation and consents to proceed with the evaluation remotely. 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 INTERVAL HPI: - seen by Gastro-oncology RD, has gotten much better since - only 1 episode of hypoglycemia - just a few episodes of dumping - eating small meals t/o the day - following with oncology for surveillance -Taking flintstone multivitamin, vitamins E, C, D and magnesium daily ONCOLOGIST: Eric Sol MD Date of Surgery: 04/24/2022 Surgery: SURGERY DETAILS: 1. Exploratory laparotomy. 2. Distal hemigastrectomy. 3. Billroth I reconstruction. Surgical Pathology: PATHOLOGY: T3N0 FINAL DIAGNOSIS A. Celiac artery lymph node, excision: - One lymph node, negative for malignancy (0/1). B. 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 - Six lymph nodes, negative for malignancy (0/6). - Acute erosive gastritis with reactive gastropathy. C. Duodenal staple line , excision: - Segment of duodenum with no diagnostic abnormality. D. Gastric staple line , excision: - Segment of gastric body/fundus with no diagnostic abnormality. PAST MEDICAL HISTORY Active Ambulatory Problems Discharge planning issues Date Noted: 03/12/2018 (aortic stenosis) Date Noted: 03/13/2018 Atelectasis Date Noted: 03/13/2018 Postoperative pain Date Noted: 03/13/2018 Postoperative hypertension Date Noted: 03/15/2018 Fluid overload Date Noted: 03/15/2018 Transition of care performed with sharing of clinical summary Date Noted: 03/16/2018 Tachycardia Date Noted: 03/17/2018 Vocal cord polyp Date Noted: 03/17/2018 Abdominal mass Date Noted: 09/12/2021 Pneumonia due to infectious organism Date Noted: 10/17/2021 Congestive heart failure (HCC) Date Noted: 10/17/2021 Chronic cough Date Noted: 10/17/2021 Diverticulitis Date Noted: 10/17/2021 History of gastrointestinal stromal tumor (GIST) Date Noted: 11/28/2021 Prosthetic aortic valve stenosis Date Noted: 11/28/2021 Severe aortic stenosis Date Noted: 11/29/2021 S/P TAVR (transcatheter aortic valve replacement) Date Noted: 11/29/2021 GERD (gastroesophageal reflux disease) Date Noted: 04/22/2022 CVA (cerebral vascular accident) (HCC) Date Noted: 04/22/2022 COPD (chronic obstructive pulmonary disease) (HCC) Date Noted: 04/22/2022 Lupus (HCC) Date Noted: 04/22/2022 Diarrhea due to malabsorption Date Noted: 05/16/2022 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) Date Noted: 05/22/2022 Polyclonal gammopathy Date Noted: 05/22/2022 Moderate protein-calorie malnutrition (HCC) Date Noted: 03/17/2023 Resolved Ambulatory Problems Preop testing Date Noted: 03/12/2018 Postoperative hypovolemia Date Noted: 03/13/2018 Gastrointestinal stromal tumor (GIST) (HCC) Date Noted: 04/24/2022 Past Medical History: No date: Aortic stenosis No date: Bicuspid aortic valve 03/2022: COVID-19 No date: Mitral valve prolapse PAST SURGICAL HISTORY PAST SURGICAL HISTORY Procedure Laterality Date COLONOSCOPY SCREENING 2017 HYSTERECTOMY LEFT HEART CATH,PERCUTANEOUS PAST SURGICAL HISTORY OF 1979 vocal chord polyp removal, second surgery insert plate SHX AORTIC VALVE REPLACEMENT 2018 #[address] Jeremi LOPEZ OPER STRES INCONTINENCE TAVR/ROMY PERCUT 11/29/2021 Transcatheter Aortic Valve Replacement IMAGING UPDATE: no new images since last visit LABS UPDATE: Latest Ref Rng 09/08/2023 WBC 3.70 - 11.00 k/uL 3.54 (L) RBC 3.90 - 5.20 m/uL 4.65 Hemoglobin 11.5 - 15.5 g/dL 14.0 Hematocrit 36.0 - 46.0 % 42.3 MCV 80.0 - 100.0 fL 91.0 MCH 26.0 - 34.0 pg 30.1 MCHC 30.5 - 36.0 g/dL 33.1 RDW-CV 11.5 - 15.0 % 12.2 Platelet Count 150 - 400 k/uL 198 MPV 9.0 - 12.7 fL 9.4 Neut% % 57.3 Abs Neut (ANC) 1.45 - 7.50 k/uL 2.03 Lymph% % 27.4 Abs Lymph 1.00 - 4.00 k/uL 0.97 (L) Vinton% % 9.6 Abs Vinton <0.87 k/uL 0.34 Eosin% % 4.8 Abs Eosin <0.46 k/uL 0.17 Baso% % 0.6 Abs Baso <0.11 k/uL <0.03 Immature Gran % % 0.3 IMMATURE GRANS (ABS) <0.10 k/uL <0.03 NRBC /100 WBC 0.0 Absolute nRBC <0.01 k/uL <0.01 DTYPE Auto Protein, Total 6.3 - 8.0 g/dL 10.4 (H) Albumin 3.9 - 4.9 g/dL 4.6 Calcium 8.5 - 10.2 mg/dL 10.0 Bilirubin, Total 0.2 - 1.3 mg/dL 0.6 Alkaline Phosphatase 34 - 123 U/L 99 AST 13 - 35 U/L 23 ALT 7 (more content not included)... [facility] 01-12-2024 History of Present illness Narrative Assessment ESTABLISHED PATIENT Virtual visit: I have communicated my name and active licensure. The patient's identity and physical location were verified at the time of this visit. Either the patient or their legal representative government relations has been informed of the risks and benefits of -- and alternatives to -- treatment through a remote evaluation and consents to proceed with the evaluation remotely. 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 INTERVAL HPI: - seen by Gastro-oncology RD, has gotten much better since - only 1 episode of hypoglycemia - just a few episodes of dumping - eating small meals t/o the day - following with oncology for surveillance -Taking flintstone multivitamin, vitamins E, C, D and magnesium daily ONCOLOGIST: Eric Sol MD Date of Surgery: 04/24/2022 Surgery: SURGERY DETAILS: 1. Exploratory laparotomy. 2. Distal hemigastrectomy. 3. Billroth I reconstruction. Surgical Pathology: PATHOLOGY: T3N0 FINAL DIAGNOSIS A. Celiac artery lymph node, excision: - One lymph node, negative for malignancy (0/1). B. 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 - Six lymph nodes, negative for malignancy (0/6). - Acute erosive gastritis with reactive gastropathy. C. Duodenal staple line , excision: - Segment of duodenum with no diagnostic abnormality. D. Gastric staple line , excision: - Segment of gastric body/fundus with no diagnostic abnormality. PAST MEDICAL HISTORY Active Ambulatory Problems Discharge planning issues Date Noted: 03/12/2018 (aortic stenosis) Date Noted: 03/13/2018 Atelectasis Date Noted: 03/13/2018 Postoperative pain Date Noted: 03/13/2018 Postoperative hypertension Date Noted: 03/15/2018 Fluid overload Date Noted: 03/15/2018 Transition of care performed with sharing of clinical summary Date Noted: 03/16/2018 Tachycardia Date Noted: 03/17/2018 Vocal cord polyp Date Noted: 03/17/2018 Abdominal mass Date Noted: 09/12/2021 Pneumonia due to infectious organism Date Noted: 10/17/2021 Congestive heart failure (HCC) Date Noted: 10/17/2021 Chronic cough Date Noted: 10/17/2021 Diverticulitis Date Noted: 10/17/2021 History of gastrointestinal stromal tumor (GIST) Date Noted: 11/28/2021 Prosthetic aortic valve stenosis Date Noted: 11/28/2021 Severe aortic stenosis Date Noted: 11/29/2021 S/P TAVR (transcatheter aortic valve replacement) Date Noted: 11/29/2021 GERD (gastroesophageal reflux disease) Date Noted: 04/22/2022 CVA (cerebral vascular accident) (HCC) Date Noted: 04/22/2022 COPD (chronic obstructive pulmonary disease) (HCC) Date Noted: 04/22/2022 Lupus (HCC) Date Noted: 04/22/2022 Diarrhea due to malabsorption Date Noted: 05/16/2022 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) Date Noted: 05/22/2022 Polyclonal gammopathy Date Noted: 05/22/2022 Moderate protein-calorie malnutrition (HCC) Date Noted: 03/17/2023 Resolved Ambulatory Problems Preop testing Date Noted: 03/12/2018 Postoperative hypovolemia Date Noted: 03/13/2018 Gastrointestinal stromal tumor (GIST) (HCC) Date Noted: 04/24/2022 Past Medical History: No date: Aortic stenosis No date: Bicuspid aortic valve 03/2022: COVID-19 No date: Mitral valve prolapse PAST SURGICAL HISTORY PAST SURGICAL HISTORY Procedure Laterality Date COLONOSCOPY SCREENING 2017 HYSTERECTOMY LEFT HEART CATH,PERCUTANEOUS PAST SURGICAL HISTORY OF 1979 vocal chord polyp removal, second surgery insert plate SHX AORTIC VALVE REPLACEMENT 2017 #[address] Jreemi LOPEZ OPER STRES INCONTINENCE TAVR/ROMY PERCUT 11/29/2021 Transcatheter Aortic Valve Replacement IMAGING UPDATE: no new images since last visit LABS UPDATE: Latest Ref Rng 09/08/2023 WBC 3.70 - 11.00 k/uL 3.54 (L) RBC 3.90 - 5.20 m/uL 4.65 Hemoglobin 11.5 - 15.5 g/dL 14.0 Hematocrit 36.0 - 46.0 % 42.3 MCV 80.0 - 100.0 fL 91.0 MCH 26.0 - 34.0 pg 30.1 MCHC 30.5 - 36.0 g/dL 33.1 RDW-CV 11.5 - 15.0 % 12.2 Platelet Count 150 - 400 k/uL 198 MPV 9.0 - 12.7 fL 9.4 Neut% % 57.3 Abs Neut (ANC) 1.45 - 7.50 k/uL 2.03 Lymph% % 27.4 Abs Lymph 1.00 - 4.00 k/uL 0.97 (L) Vinton% % 9.6 Abs Vinton <0.87 k/uL 0.34 Eosin% % 4.8 Abs Eosin <0.46 k/uL 0.17 Baso% % 0.6 Abs Baso <0.11 k/uL <0.03 Immature Gran % % 0.3 IMMATURE GRANS (ABS) <0.10 k/uL <0.03 NRBC /100 WBC 0.0 Absolute nRBC <0.01 k/uL <0.01 DTYPE Auto Protein, Total 6.3 - 8.0 g/dL 10.4 (H) Albumin 3.9 - 4.9 g/dL 4.6 Calcium 8.5 - 10.2 mg/dL 10.0 Bilirubin, Total 0.2 - 1.3 mg/dL 0.6 Alkaline Phosphatase 34 - 123 U/L 99 AST 13 - 35 U/L 23 ALT 7 - 38 U/L 15 Glucose 74 - 99 mg/dL 87 BUN 7 - 21 mg/dL 20 Creatinine 0.58 - 0.96 mg/dL 0.82 Sodium 136 - 144 mmol/L 138 Potassium 3.7 - 5.1 mmol/L 3.9 Chloride 97 - 105 mmol/L 102 CO2 22 - 30 mmol/L 27 Anion Gap 9 - 18 mmol/L 9 eGFR >=60 mL/min/1.73m 78 Iron 41 - 186 ug/dL 58 TIBC 232 - 386 ug/dL 345 Transferrin Saturation 15.0 - 57.0 % 16.8 Normalized Calcium 1.08 - 1.30 mmol/L 1.26 Ionized Calcium 1.08 - 1.30 mmol/L 1.28 Ferritin 14.7 - 205.1 ng/mL 95.9 Vitamin B12 232 - 1,245 pg/mL >2,000 (H) Folate >4.7 ng/mL >20.0 Legend: (L) Low (H) High PHYSICAL EXAMINATION: There were no vitals taken for this visit. virtual visit General Appearance: Well appearing, alert, in no acute distress, well-hydrated, well nourished.. Abdomen: no distention Lungs: non labored breathing. 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 - continue regular follow up with Oncology for surveillance - check nutritional labs (vitamins A, B1 and zinc), rest are up to date Follow up in 3 months I spent a total of 22 minutes on the date of the service which included preparing to see the patient, [id number] patient care, completing clinical documentation, counseling and educating the patient/family/caregiver, ordering medications, tests, or procedures, and care coordination (not separately reported) . Cailin Howard APRN.CNP documented in this encounter [facility] 12-24-2023 Miscellaneous Notes Patient returned call to ORDER SELECTOR. Pt asked if there is an Eliquis discount card, she said she was told the card she has was used already, so she could not use it. Office also advised pt to contact her insurance or pharmacy to find out cost of xarelto or coumadin in the event there are no Eliquis cards. Pt will call office tomorrow with an update. Left voicemail for patient. We will either have to transition patient to Xarelto or Coumadin. Jodee Damico APRN.CNP Pt called stating that she cannot afford Eliquis at $600 and this is with insurance. Pt is asking if there is anything else that can be done to make it affordable such as a discount card. Or is there another medication. Pt can be reached at [phone] documented in this encounter [facility] 12-19-2023 Note HNO ID: [id number] Author: TOÑA GARCIA MD Service: ? Author Type: Physician Type: Progress Notes Filed: 12/19/2023 10:59 Note Text: Heart, Vascular AND Thoracic [place] Department of Cardiovascular Medicine VIRTUAL VIDEO VISIT ESTABLISHED OUTPATIENT VISIT SERVICE DATE: 12/19/2023 Patient: Swathi Valladares SERVICE TIME: 10:46 AM : 1955 This is a virtual video visit. It required patient-provider interaction for the medical decision making as documented below. Swathi Valladares has consented to this video encounter. I have communicated my name and active licensure. The patient's identity and physical location were verified at the time of this visit. Either the patient or their legal representative government relations has been informed of the risks and benefits of -- and alternatives to -- treatment through a remote evaluation and consents to proceed with the evaluation remotely. Swathi Valladares is a 68 year old female seen for VHD CHIEF COMPLAINT ROMY VinV 23 mm S3 11/29/2021 ? HALT/rising gradients HISTORY OF PRESENT ILLNESS Mrs Valladares does have some mild dyspnea and some cough although a bit less than before. She remains on aspirin monotherapy. CTA apparently was negative for HALT. She never went on to eliquis. To my eye there is some leaflet thickening. It is unclear as to whether this is premature thickening from subclinical thrombosis or whether this is simply artifact. I think there is enough doubt given the rising gradients and the return of her potential HFpEF symptoms to suggest that this may be legitimate HALT. PAST MEDICAL HISTORY Diagnosis Date Aortic stenosis Bicuspid aortic valve COVID-19 03/2022 History of gastrointestinal stromal tumor (GIST) Mitral valve prolapse Prosthetic aortic valve stenosis PAST SURGICAL HISTORY Procedure Laterality Date COLONOSCOPY SCREENING 2018 HYSTERECTOMY LEFT HEART CATH,PERCUTANEOUS PAST SURGICAL HISTORY OF 1979 vocal chord polyp removal, second surgery insert plate SHX AORTIC VALVE REPLACEMENT 2018 #[address] Jeremi LOPEZ OPER STRES INCONTINENCE TAVR/ROMY PERCUT 11/29/2021 Transcatheter Aortic Valve Replacement FAMILY HISTORY Problem Relation Age of Onset Hypertension Mother Skin Cancer Mother Cancer Father at 40 from liver cancer COPD Sister Skin Cancer Brother Social History Tobacco Use Smoking status: Never Passive exposure: Never Smokeless tobacco: Never Substance Use Topics Alcohol use: Not Currently Comment: rare Drug use: Never ALLERGIES No Known Allergies CURRENT MEDICATIONS iv contrast (will be provided with radiology test)CT Chest ABD/PEL-Inject, intravenously, once for 1 dose.No IV access, insert saline lock prior to the beginning of sedation, infusion, injection of imaging exam. Discontinue saline lock post exam. If Pt. has a central line or IVAD, may access for administration according to line specific nursing protocol. Once exam is complete flush line and de-access according to line specific nursing protocol in the CT contrast administration guidelines link.Disp: 1 EachRfl: 0 enteric contrast (will be provided with radiology test)For CT CHESTABD/PEL W IVCON Routine order Administer, As Directed One Time Only, via Oral, Rectal, both Oral and Rectal, Enteric Tube, Stoma or Indwelling Catheter, Enteric Contrast as designated per enteric contrast guidelinesDisp: 1 EachRfl: 0 amoxicillin (AMOXIL) 500 mg capsuleTake 500 mg by mouth as needed. Prior to dental proceduresDisp: Rfl: Cholecalciferol, Vitamin D3, (VITAMIN D-3) 10 mcg (400 unit) chewTake 1 tablet by mouth once daily.Disp: Rfl: pediatric multivitamin no.76 (FLINTSTONES COMPLETE ORAL)Take 2 tablets by mouth once daily.Disp: Rfl: ascorbic acid (VITAMIN C ORAL)Take by mouth once daily.Disp: Rfl: cyanocobalamin, vitamin B-12, (VITAMIN B-12 ORAL)Take by mouth once daily.Disp: Rfl: hydrOXYchloroQUINE (PLAQUENIL) 200 mg tabletTake 200 mg by mouth once daily.Disp: Rfl: aspirin 81 mg chewable tabletTake 162 mg by mouth once daily. Disp: Rfl: REVIEW OF SYSTEMS: GENERAL: Negative for: Weight loss or gain, Fever or Chills, Weakness and Sleep difficulties. HEENT: Negative for: Headache, Impaired Vision, Glasses, Hearing Impairment, Ringing in Ears, Nosebleeds, Poor dental care, Bleeding Gums, Dentures NECK: Negative for: Swelling, Pain, Stiffness RESPIRATORY: Negative for: Cough, Blood in Sputum, Shortness of breath, Wheezing, Apnea GASTROINTESTINAL: Negative for: Trouble swallowing, Heartburn, Change in bowel habits, Blood in stool, Dark black stools MUSCULOSKELETAL: Negative for: Muscle or joint pain, Stiffness , Joint swelling NEUROLOGIC/PSYCHIATRIC: Negative for: Weakness, Paralysis, Numbness, Tingling, Tremor, Nervousness, Depressed mood, Memory loss SKIN: Negative for: Rashes, Itching HEMATOLOGICAL/LYMPHATIC: Negative for: Easy bruising , Easy bleeding ENDOCRIN (more content not included)... [facility] 12-19-2023 History of Present illness Narrative Heart, Vascular & Thoracic [place] Department of Cardiovascular Medicine VIRTUAL VIDEO VISIT ESTABLISHED OUTPATIENT VISIT SERVICE DATE: 12/19/2023 Patient: Swathi Valladares SERVICE TIME: 10:46 AM : 1955 This is a virtual video visit. It required patient-provider interaction for the medical decision making as documented below. Swathi Valladares has consented to this video encounter. I have communicated my name and active licensure. The patient's identity and physical location were verified at the time of this visit. Either the patient or their legal representative government relations has been informed of the risks and benefits of -- and alternatives to -- treatment through a remote evaluation and consents to proceed with the evaluation remotely. Swathi Valladares is a 68 year old female seen for VHD CHIEF COMPLAINT ROMY VinV 23 mm S3 11/29/2021 ? HALT/rising gradients HISTORY OF PRESENT ILLNESS Mrs Valladares does have some mild dyspnea and some cough although a bit less than before. She remains on aspirin monotherapy. CTA apparently was negative for HALT. She never went on to eliquis. To my eye there is some leaflet thickening. It is unclear as to whether this is premature thickening from subclinical thrombosis or whether this is simply artifact. I think there is enough doubt given the rising gradients and the return of her potential HFpEF symptoms to suggest that this may be legitimate HALT. PAST MEDICAL HISTORY Diagnosis Date Aortic stenosis Bicuspid aortic valve COVID-19 03/2022 History of gastrointestinal stromal tumor (GIST) Mitral valve prolapse Prosthetic aortic valve stenosis PAST SURGICAL HISTORY Procedure Laterality Date COLONOSCOPY SCREENING 2018 HYSTERECTOMY LEFT HEART CATH,PERCUTANEOUS PAST SURGICAL HISTORY OF 1979 vocal chord polyp removal, second surgery insert plate SHX AORTIC VALVE REPLACEMENT 2018 #[address] Jeremi LOPEZ OPER STRES INCONTINENCE TAVR/ROMY PERCUT 11/29/2021 Transcatheter Aortic Valve Replacement FAMILY HISTORY Problem Relation Age of Onset Hypertension Mother Skin Cancer Mother Cancer Father at 40 from liver cancer COPD Sister Skin Cancer Brother Social History Tobacco Use Smoking status: Never Passive exposure: Never Smokeless tobacco: Never Substance Use Topics Alcohol use: Not Currently Comment: rare Drug use: Never ALLERGIES No Known Allergies CURRENT MEDICATIONS iv contrast (will be provided with radiology test)^CT Chest ABD/PEL-Inject, intravenously, once for 1 dose.No IV access, insert saline lock prior to the beginning of sedation, infusion, injection of imaging exam. Discontinue saline lock post exam. If Pt. has a central line or IVAD, may access for administration according to line specific nursing protocol. Once exam is complete flush line and de-access according to line specific nursing protocol in the CT contrast administration guidelines link.^Disp: 1 Each^Rfl: 0 enteric contrast (will be provided with radiology test)^For CT CHESTABD/PEL W IVCON Routine order Administer, As Directed One Time Only, via Oral, Rectal, both Oral and Rectal, Enteric Tube, Stoma or Indwelling Catheter, Enteric Contrast as designated per enteric contrast guidelines^Disp: 1 Each^Rfl: 0 amoxicillin (AMOXIL) 500 mg capsule^Take 500 mg by mouth as needed. Prior to dental procedures^Disp: ^Rfl: Cholecalciferol, Vitamin D3, (VITAMIN D-3) 10 mcg (400 unit) chew^Take 1 tablet by mouth once daily.^Disp: ^Rfl: pediatric multivitamin no.76 (FLINTSTONES COMPLETE ORAL)^Take 2 tablets by mouth once daily.^Disp: ^Rfl: ascorbic acid (VITAMIN C ORAL)^Take by mouth once daily.^Disp: ^Rfl: cyanocobalamin, vitamin B-12, (VITAMIN B-12 ORAL)^Take by mouth once daily.^Disp: ^Rfl: hydrOXYchloroQUINE (PLAQUENIL) 200 mg tablet^Take 200 mg by mouth once daily.^Disp: ^Rfl: aspirin 81 mg chewable tablet^Take 162 mg by mouth once daily. ^Disp: ^Rfl: REVIEW OF SYSTEMS: GENERAL: Negative for: Weight loss or gain, Fever or Chills, Weakness and Sleep difficulties. HEENT: Negative for: Headache, Impaired Vision, Glasses, Hearing Impairment, Ringing in Ears, Nosebleeds, Poor dental care, Bleeding Gums, Dentures NECK: Negative for: Swelling, Pain, Stiffness RESPIRATORY: Negative for: Cough, Blood in Sputum, Shortness of breath, Wheezing, Apnea GASTROINTESTINAL: Negative for: Trouble swallowing, Heartburn, Change in bowel habits, Blood in stool, Dark black stools MUSCULOSKELETAL: Negative for: Muscle or joint pain, Stiffness , Joint swelling NEUROLOGIC/PSYCHIATRIC: Negative for: Weakness, Paralysis, Numbness, Tingling, Tremor, Nervousness, Depressed mood, Memory loss SKIN: Negative for: Rashes, Itching HEMATOLOGICAL/LYMPHATIC: Negative for: Easy bruising , Easy bleeding ENDOCRINE: Negative for: Heat or cold intolerance, Excessive sweating, Frequent urination, Frequent thirst PHYSICAL EXAMINATION: VIDEO EXAM: (if completed, performed via video enabled technology) No exam performed ASSESSMENT: Even though the CT scan has been reported as being negative for HALT, I do wonder whether there is some evidence of this given her symptoms have not improved. PLAN (Active Outpatient Problems): I prescribed Eliquis 5 mg twice a day and I would like her to overlap with aspirin for a month, then stop aspirin. At around 3 months she will have a repeat surface echocardiogram and we will do a phone visit thereafter to discuss. Toña Garcia MD, PhD, FRACP Clinical Staff, Pallet Stone Positioner silverware etcher Director, Pl[facility] Imaging Core Laboratory, [facility] Department of Cardiovascular Medicine Heart and Vascular [place] [facility] Desk [facility] [address] [place] [address] Office This letter was dictated using a voice recognition program, please excuse any typos. documented in this encounter [facility] 12-19-2023 Miscellaneous Notes patient called to confirm the time of today's phone visit documented in this encounter [facility] 11-21-2023 Miscellaneous Notes Pt called to find out when she saw Dr. Garcia in 2022 and wanting to schedule 6 mo follow up appt and testing. documented in this encounter [facility] 11-10-2023 Note HNO ID: [id number] Author: JAROD FAJARDO RD Service: ? Author Type: Registered Dietitian Type: Progress Notes Filed: 11/10/2023 14:43 Note Text: Oncology Nutrition Therapy Initial Assessment Virtual Visit I have communicated my name and active licensure. The patient's identity and physical location were verified at the time of this visit. Either the patient or their legal representative government relations has been informed of the risks and benefits of -- and alternatives to -- treatment through a remote evaluation and consents to proceed with the evaluation remotely. RECOMMENDED MALNUTRITION DIAGNOSIS: NO MALNUTRITION IDENTIFIED Nutriscore: No Data Recorded Nutrition Diagnosis: Inconsistent carbohydrate intake, related to, food and nutrition related knowledge deficit, as evidenced by symptoms of dumping syndrome, pt discussion Nutrition Intervention: - Aim to eat consistently every 3-5 hours during waking hours - Pair a protein/fat with your carbohydrates - discussed specific examples, see snack ideas handout - Try adding a protein powder to your cereal and to your chocolate milk Nutrition Monitoring AND Evaluation: Adherence to the above recommendations HPI: pt is a 68 year old female who presents with gastric GIST s/p neoadjuvant imatinib followed by resection (distal hemigastrectomy and billroth I reconstruction) in April 2022. Nutrition consulted by General Surgery for reactive hypoglycemia. Patient's symptoms are: dumping syndrome, weakness Nutritional Intake:pt reports with symptoms of hypoglycemia that have been occurring 1-2 times per week (during sleep) for the past several months. Symptoms are relieved by drinking juice or eating something. Pt reports she has not had much of an appetite since her surgery in April 2022. 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 Diet recall reveals meals and snacks are not well balanced or consistent, she tends to graze due to busyness at work. This may be causing her dumping syndrome when she sleeps. Diet Recall: Last meal 730-8 am- egg + toast --Goes to bed until 5 pm-- 1st meal 6 pm - bowl of cereal before she goes to work Snack - crackers Second meal: (no set time, whenever she can eat) - mac and cheese + yogurt Beverages - apple juice, water, chocolate milk (sips all day) Vitamins AND Minerals - flintstone 2 MVI, vitamin B, vitamin C, vitamin E, magnesium Bowel movements: alternates between soft stools AND constipation Readiness to Learn: Cognitive ability: Alert and oriented Motivation to learn: Eager Family support: Unable to assess - Family not present Instruction provided to: Patient Patient learns best by: Multiple Methods Factors affecting learning: None Physical limitations affecting learning: None Educational materials provided: snack ideas Anthropometrics: Height: Last 1 Encounter Ht Readings: Date: Ht: 10/13/2023 160 cm (5' 2.99 ) Current weight: Last 1 Encounter Wt Readings: Date: Wt: 10/13/2023 56.2 kg (123 lb 14.4 oz) Estimated body mass index is 21.95 kg/m? as calculated from the following: Height as of 10/13/23: 160 cm (5' 2.99 ). Weight as of 10/13/23: 56.2 kg (123 lb 14.4 oz). Resting Metabolic Rate: 1065 Weight change no clinically significant weight loss x1 year Dosing Weight: 56.2 kg Estimated kilocalorie needs: 9551-1530 kilocalories determined by 20-25 kcal/kg Estimated protein needs: 67-84 grams determined by 1.2-1.5 g/kg Dosing weight Estimated fluid needs: 0889-4994 milliliters based on 1 mL per kcal Nutrition Focused Physical Exam: Unable to perform exam due to patient unavailable, will re-attempt during reassessment. Potential Signs of Inflammation: no identifiable sources Allergies: Patient has no known allergies. Medications: Current Outpatient Medications Medication Sig Dispense Refill iv contrast (will be provided with radiology test) CT Chest ABD/PEL-Inject, intravenously, once for 1 dose.No IV access, insert saline lock prior to the beginning of sedation, infusion, injection of imaging exam. Discontinue saline lock post exam. If Pt. has a central line or IVAD, may access for administration according to line specific nursing protocol. Once exam is complete flush line and de-access according to line specific nursing protocol in the CT contrast administration guidelines link. 1 Each 0 enteric contrast (will be provided with radiology test) For CT CHESTABD/PEL W IVCON Routine order Administer, As Directed One Time Only, via Oral, Rectal, both Oral and Rectal, Enteric Tube, Stoma or Indwelling Catheter, Enteric Contrast as designated per enteric contrast guidelines 1 Each 0 amoxicillin (AMOXIL) 500 mg capsule Take 500 mg by mouth as needed. Prior to dental procedures Cholecalciferol, Vitamin D3, (VITAMIN D-3) 10 mcg (400 unit) chew Take 1 tablet by mouth once daily. pediatric multivitamin no.76 (FLINTSTONES COMPLETE ORAL) Take 2 tablets by m (more content not included)... [facility] 11-10-[facility] History of Present illness Narrative Oncology Nutrition Therapy Initial Assessment Virtual Visit I have communicated my name and active licensure. The patient's identity and physical location were verified at the time of this visit. Either the patient or their legal representative government relations has been informed of the risks and benefits of -- and alternatives to -- treatment through a remote evaluation and consents to proceed with the evaluation remotely. RECOMMENDED MALNUTRITION DIAGNOSIS: NO MALNUTRITION IDENTIFIED Nutriscore: No Data Recorded Nutrition Diagnosis: Inconsistent carbohydrate intake, related to, food and nutrition related knowledge deficit, as evidenced by symptoms of dumping syndrome, pt discussion Nutrition Intervention: - Aim to eat consistently every 3-5 hours during waking hours - Pair a protein/fat with your carbohydrates - discussed specific examples, see snack ideas handout - Try adding a protein powder to your cereal and to your chocolate milk Nutrition Monitoring & Evaluation: Adherence to the above recommendations HPI: pt is a 68 year old female who presents with gastric GIST s/p neoadjuvant imatinib followed by resection (distal hemigastrectomy and billroth I reconstruction) in April 2022. Nutrition consulted by General Surgery for reactive hypoglycemia. Patient's symptoms are: dumping syndrome, weakness Nutritional Intake:pt reports with symptoms of hypoglycemia that have been occurring 1-2 times per week (during sleep) for the past several months. Symptoms are relieved by drinking juice or eating something. Pt reports she has not had much of an appetite since her surgery in April 2022. 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 Diet recall reveals meals and snacks are not well balanced or consistent, she tends to graze due to busyness at work. This may be causing her dumping syndrome when she sleeps. Diet Recall: Last meal 730-8 am- egg + toast --Goes to bed until 5 pm-- 1st meal 6 pm - bowl of cereal before she goes to work Snack - crackers Second meal: (no set time, whenever she can eat) - mac and cheese + yogurt Beverages - apple juice, water, chocolate milk (sips all day) Vitamins & Minerals - flintstone 2 MVI, vitamin B, vitamin C, vitamin E, magnesium Bowel movements: alternates between soft stools & constipation Readiness to Learn: Cognitive ability: Alert and oriented Motivation to learn: Eager Family support: Unable to assess - Family not present Instruction provided to: Patient Patient learns best by: Multiple Methods Factors affecting learning: None Physical limitations affecting learning: None Educational materials provided: snack ideas Anthropometrics: Height: Last 1 Encounter Ht Readings: Date: Ht: 10/13/2023 160 cm (5' 2.99 ) Current weight: Last 1 Encounter Wt Readings: Date: Wt: 10/13/2023 56.2 kg (123 lb 14.4 oz) Estimated body mass index is 21.95 kg/m as calculated from the following: Height as of 10/13/23: 160 cm (5' 2.99 ). Weight as of 10/13/23: 56.2 kg (123 lb 14.4 oz). Resting Metabolic Rate: 1065 Weight change no clinically significant weight loss x1 year Dosing Weight: 56.2 kg Estimated kilocalorie needs: 0557-7433 kilocalories determined by 20-25 kcal/kg Estimated protein needs: 67-84 grams determined by 1.2-1.5 g/kg Dosing weight Estimated fluid needs: 5184-2556 milliliters based on 1 mL per kcal Nutrition Focused Physical Exam: Unable to perform exam due to patient unavailable, will re-attempt during reassessment. Potential Signs of Inflammation: no identifiable sources Allergies: Patient has no known allergies. Medications: Current Outpatient Medications Medication Sig Dispense Refill iv contrast (will be provided with radiology test) CT Chest ABD/PEL-Inject, intravenously, once for 1 dose.No IV access, insert saline lock prior to the beginning of sedation, infusion, injection of imaging exam. Discontinue saline lock post exam. If Pt. has a central line or IVAD, may access for administration according to line specific nursing protocol. Once exam is complete flush line and de-access according to line specific nursing protocol in the CT contrast administration guidelines link. 1 Each 0 enteric contrast (will be provided with radiology test) For CT CHESTABD/PEL W IVCON Routine order Administer, As Directed One Time Only, via Oral, Rectal, both Oral and Rectal, Enteric Tube, Stoma or Indwelling Catheter, Enteric Contrast as designated per enteric contrast guidelines 1 Each 0 amoxicillin (AMOXIL) 500 mg capsule Take 500 mg by mouth as needed. Prior to dental procedures Cholecalciferol, Vitamin D3, (VITAMIN D-3) 10 mcg (400 unit) chew Take 1 tablet by mouth once daily. pediatric multivitamin no.76 (FLINTSTONES COMPLETE ORAL) Take 2 tablets by mouth once daily. ascorbic acid (VITAMIN C ORAL) Take by mouth once daily. cyanocobalamin, vitamin B-12, (VITAMIN B-12 ORAL) Take by mouth once daily. hydrOXYchloroQUINE (PLAQUENIL) 200 mg tablet Take 200 mg by mouth once daily. aspirin 81 mg chewable tablet Take 162 mg by mouth once daily. Current Facility-Administered Medications Medication Dose Route Frequency Provider Last Rate Last Admin perflutren lipid microspheres 1.3 mL in NaCl (PF) 0.9% 10 mL injection (DEFINITY) INTRAVENOUS DIRECTED PRN Toña Garcia MD sodium chloride 0.9 % (flush) 10 mL (BD POSIFLUSH) 10 mL INTRAVENOUS DIRECTED PRN Toña Garcia MD Need for Follow up: PRN Referred by: Lee BRANCH Billing Type: Initial Assess/15 min 2 units Time Spent with Patient: 20 minutes Signed by: Jarod Fajardo RD, [place] documented in this encounter [facility] 10-13-2023 Note HNO ID: [id number] Author: CAILIN HOWARD APRN.FUNNEL SETTER Service: ? Author Type: Nurse Practitioner Type: Progress Notes Filed: 10/13/2023 17:49 Note Text: Assessment Postoperative Visit HPI: Swathi Valladares is a 67 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 She returns today to discussed continued dumping, reactive hypoglycemia ONCOLOGIST: Eric Sol MD Date of Surgery: 04/24/2022 Surgery: SURGERY DETAILS: 1. Exploratory laparotomy. 2. Distal hemigastrectomy. 3. Billroth I reconstruction. Surgical Pathology: PATHOLOGY: T3N0 FINAL DIAGNOSIS A. Celiac artery lymph node, excision: - One lymph node, negative for malignancy (0/1). B. 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 - Six lymph nodes, negative for malignancy (0/6). - Acute erosive gastritis with reactive gastropathy. C. Duodenal staple line , excision: - Segment of duodenum with no diagnostic abnormality. D. Gastric staple line , excision: - Segment of gastric body/fundus with no diagnostic abnormality. Subjective: - having frequent episodes of hypoglycemic / dumping symptoms - seen by endocrinology, they recommend labs (insulin/glucose) at the time of occurrence. - continues to eat very little, does not feel hungry. 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 AANDO, thin, pleasant, no distress Abdomen: soft, no distention Impression and plan: Swathi Valladares is a 68 year old woman following up for reactive hypoglycemia, possible dumping s/p Distal hemigastrectomy, Billroth I reconstruction for treatment of GIST Her symptoms have been difficult to control due to lack of dietary intake - reports never feels hungry. She is going for longer periods during the day without eating, when she is feeling her blood sugar is low she drinks juice, but doesn't necessarily follow that with food causing another episode of the same. - encouraged pt to continue follow up with Endocrinology - she agrees to appointment with Nutrition - in the meantime, will try harder to eat small meals throughout the day, avoiding high carbohydrate meals, no carbs alone - Continues follow up with Oncology for post surgical GIST surveillance Cailin Howard APRN.FUNNEL SETTER I spent a total of 28 minutes on the date of the service which included preparing to see the patient, [id number] patient care, completing clinical documentation, performing a medically appropriate examination, counseling and educating the patient/family/caregiver, communicating with other HCPs (not separately reported), and care coordination (not separately reported). [facility] 09-17-2023 Note HNO ID: [id number] Author: Eric Sol MD Service: ? 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 Tissue quantity was insufficient for mutational analysis. She got neoadjuvant imatinib 400 mg daily. Now resected. 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 Remains low risk (3.6% rate of recurrence) despite size of tumor. 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 Anemia: improved. 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 She is also following with dermatology for vasculitis. She is now on hydroxychloroquine. Continue follow ups with dermatology and rheumatology. WBC count decreased due to plaquenil - not neutropenic. IgG elevated. K/L ratio elevated consistent with underlying autoimmune disease. PLAN: CT CAP in 6 months - labs same day. RTC after to review Continue Replacing B12 SL OTC. Patient will follow up with Dr. Judd as needed (Have discussed with him) Patient may need to see him for dumping syndrome ____ HPI: CASE HISTORY: Reverse chronological order 09/08/2023 - SPEP negative for M spike. Elevated K/L ratio 2.71, 79.3:49.3. 09/08/2023 - CT CAP: Chest: Since 03/10/2023, slight increase in size of mildly enlarged mediastinal and right hilar LNs. Unchanged mucous plugging within the right lower lobe. Unchanged nonspecific 0.5 cm right middle lobe noncalcified pulmonary nodule. A/P: Since 03/10/2023, stable postoperative changes involving the stomach. No local recurrence. Unchanged mildly enlarged retroperitoneal lymph nodes. Unchanged mild biliary ductal dilatation. Unchanged 1.1 cm mildly hyperdense observation arising from the right renal lower pole, either a complicated cyst or stable small renal mass. 03/10/2023 - CT CAP: no evidence of recurrence 11/04/2022 - CT CAP: Chronic changes in the lungs otherwise no evidence of recurrence on chest or abdominal/pelvic series. 07/24/2022 - CT CAP: no evidence of metastatic disease. Mild prominence of intra/extra hepatic bile ducts - no mass. 04/24/2022 - ex-Lap, distal karsten-gastrectomy, Billroth I recon, GIST 9.5 cm, 3 mitoses per 5 mm2 - T3 N0 C-kit, PDGFR, and BRAF wild-type, low risk disease. SDHB deficiency, NTRK (-) 04/16/2022 - CT CAP - stable thoracic LN, and pulmonary nodules; unchanged exophytic heterogeneously enhancing gastric mass., 1.1 cm right renal complex cycst - new. 01/29/2022 - CT chest abdomen pelvis with stable gastric mass and borderline chest adenopathy 12/19/2021 - started imatinib 400 mg daily 12/07/2021 - CT abdomen pelvis - no pelvic adenopathy. 11/29/2021 - TAVR done prior to gastric surgery. 11/27/2021 - CT chest - negative for thoracic spread. 11/27/2021 - PET scan: heterogeneous uptake in the known GIST and a focus of uptake in the right hemipelvis may be secondary to ureteral and/or janice uptake. 11/15/2021 - tumor board recommendations were to do a CT chest to complete staging. There was a concern for for a paraaortic node that needed for be evaluated by a PET 11/07/2021 - EGD EUS (Dr. 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 Got CT scans as a part of the evaluation prior to TAVR 03/13/2018 - Open valve replacement. Updated Visit, September 17, 2023: Patient has another autoimmune disease Sjogren syndrome, therefore is the underlying issue in elevated proteins. Mediastinal nodes are not pertinent. The lungs continue to be inflamed. She is not a smoker, but confirms a history of ground glass changes in her lungs, which may contribute to her mediastinal and lung nodes enlargement. Open heart valve surgery [place] [address] Blood. Repeat valve surgery with TAVR in 2021. She reports resolution of the cough following TAVR at [facility]. She had a recent ech (more content not included)... [facility] 09-08-2023 Note HNO ID: [id number] Author: Linette Lerner RT(R) Service: ? Author Type: Technologist Type: Progress Notes Filed: 09/08/2023 8:27 AM Note Text: Radiology Service Progress Note PATIENT NAME: Swathi Valladares DATE OF SERVICE: September 08, 2023 TIME: 8:26 AM PATIENT IDENTITY VERIFICATION COMPLETED USING TWO (2) IDENTIFIERS: Name and Date of confirmed by patient verbally. FALL SCREENING: Has the patient had 2 falls in the last year or 1 fall with injury or currently using an Ambulatory Assistive Device (Walker, Cane, Wheelchair, Crutches, etc.)? No PATIENT GENDER DATA: Female. status: : No status: NO. PATIENT RELEVANT IMPLANT DATA REVIEWED: Not Applicable RADIOLOGY DEPARTMENT: CT; Exam(s) Completed: Chest Abdomen Pelvis With IV and Oral contrast PERIPHERAL IV DATA: Site assessment: Clean,Dry and Intact, Site disposition Discontinued SIGNED BY: RT Kumar(R) September 08, 2023 8:26 AM [facility] 09-08-2023 Note HNO ID: [id number] Author: Adriana Noyola RN Service: ? Author Type: Registered Nurse Type: Progress Notes Filed: 09/08/2023 8:33 AM Note Text: Radiology Service Progress Note DATE OF SERVICE: September 08, 2023 TIME: 8:32 AM PATIENT WEIGHT: 123LBS PATIENT IDENTITY VERIFICATION COMPLETED USING TWO (2) STANDARD IDENTIFIERS: Name and Date of confirmed by patient verbally. FALL SCREENING: Has the patient had 2 falls in the last year or 1 fall with injury or currently using an Ambulatory Assistive Device (Walker, Cane, Wheelchair, Crutches, etc.)? No PATIENT GENDER DATA: Female. status: : No status: NO. ALLERGIES: Reviewed and unchanged CONTRAST ALLERGY: No EXAM: CT -CONTRAST INDUCED NEPHROPATHY RISK FACTORS: Patient age > 60 years CREATININE: Creatinine Date Value Ref Range Status 09/08/2023 0.82 0.58 - 0.96 mg/dL Final 06/19/2023 0.77 0.58 - 0.96 mg/dL Final Creatinine (POCT) Date Value Ref Range Status 09/02/2023 0.80 0.7 - 1.4 mg/dL Final Estimated Glomerular Filtration Rate Date Value Ref Range Status 09/08/2023 78 >=60 mL/min/1.73m? Final Comment: Estimated Glomerular Filtration Rate (eGFR) is calculated using the 2020 CKD-EPI creatinine equation. This equation utilizes serum creatinine, sex, and age as parameters. The creatinine assay has traceable calibration to isotope dilution-mass spectrometry. Refer to KDIGO guidelines for clinical interpretation. In patients with unstable renal function, e.g. those with acute kidney injury, the eGFR may not accurately reflect actual GFR. eGFR- Date Value Ref Range Status 11/28/2021 >60 Final P.O.C.T. RESULTS: POC done: Yes, See Lab Tab September 08, 2023 TREATMENT: No Hydration needed. IV SITE: Ambulatory: A peripheral IV was started in the Right antecubital site with a Angio cath: 22 gauge. IV SITE APPEARANCE: Clean,Dry and Intact SIGNATURE: Adriana Noyola RN PATIENT NAME: Swathi Valladares DATE: September 08, 2023 TIME: 8:32 AM [facility] 09-02-2023 Note HNO ID: [id number] Author: Maria Dolores Barbosa RT(R) Service: Radiology Author Type: Technologist Type: Progress Notes Filed: 09/02/2023 2:42 PM Note Text: Radiology Service Progress Note PATIENT NAME: Swathi Valladares DATE OF SERVICE: September 02, 2023 TIME: 2:42 PM PATIENT IDENTITY VERIFICATION COMPLETED USING TWO (2) IDENTIFIERS: Name and Date of confirmed by patient verbally. FALL SCREENING: Has the patient had 2 falls in the last year or 1 fall with injury or currently using an Ambulatory Assistive Device (Walker, Cane, Wheelchair, Crutches, etc.)? No PATIENT GENDER DATA: Female. status: : No status: NO. PATIENT RELEVANT IMPLANT DATA REVIEWED: Yes RADIOLOGY DEPARTMENT: CT; Exam(s) Completed: Cardiac PERIPHERAL IV DATA: Site assessment: Clean,Dry and Intact, Site disposition Discontinued SIGNED BY: RT Darryn(R) September 02, 2023 2:42 PM [facility] 09-02-2023 Note HNO ID: [id number] Author: Kaela Lara RN Service: Radiology Author Type: Registered Nurse Type: Progress Notes Filed: 09/02/2023 2:39 PM Note Text: Radiology Service Progress Note DATE OF SERVICE: September 02, 2023 TIME: 2:32 PM PATIENT WEIGHT: 120 LBS PATIENT IDENTITY VERIFICATION COMPLETED USING TWO (2) STANDARD IDENTIFIERS: Name and Date of confirmed by patient verbally and Name and Date of confirmed by identification band. FALL SCREENING: Has the patient had 2 falls in the last year or 1 fall with injury or currently using an Ambulatory Assistive Device (Walker, Cane, Wheelchair, Crutches, etc.)? No PATIENT GENDER DATA: Female. status: : No status: NO. ALLERGIES: Reviewed and unchanged CONTRAST ALLERGY: No EXAM: CT -CONTRAST INDUCED NEPHROPATHY RISK FACTORS: Patient age > 60 years CREATININE: Creatinine Date Value Ref Range Status 06/19/2023 0.77 0.58 - 0.96 mg/dL Final 03/10/2023 0.76 0.58 - 0.96 mg/dL Final Creatinine (POCT) Date Value Ref Range Status 09/02/2023 0.80 0.7 - 1.4 mg/dL Final eGFR (POCT) Date Value Ref Range Status 09/02/2023 >60 mL/min/1.73 m2 Final eGFR- Date Value Ref Range Status 11/28/2021 >60 Final P.O.C.T. RESULTS: POC done: Yes, See Lab Tab September 02, 2023 TREATMENT: No Hydration needed. IV SITE: Ambulatory: A peripheral IV was started in the Right antecubital site with a Angio cath: 20 gauge. and A Saline lock was inserted per protocol IV SITE APPEARANCE: Clean,Dry and Intact SIGNATURE: Kaela Lara RN PATIENT NAME: Swathi Valladares DATE: September 02, 2023 TIME: 2:32 PM [facility] 09-02-2023 History of Present illness Narrative Radiology Service Progress Note DATE OF SERVICE: September 02, 2023 TIME: 2:32 PM PATIENT WEIGHT: 120 LBS PATIENT IDENTITY VERIFICATION COMPLETED USING TWO (2) STANDARD IDENTIFIERS: Name and Date of confirmed by patient verbally and Name and Date of confirmed by identification band. FALL SCREENING: Has the patient had 2 falls in the last year or 1 fall with injury or currently using an Ambulatory Assistive Device (Walker, Cane, Wheelchair, Crutches, etc.)? No PATIENT GENDER DATA: Female. status: : No status: NO. ALLERGIES: Reviewed and unchanged CONTRAST ALLERGY: No EXAM: CT -CONTRAST INDUCED NEPHROPATHY RISK FACTORS: Patient age > 60 years CREATININE: Creatinine Date Value Ref Range Status 06/19/2023 0.77 0.58 - 0.96 mg/dL Final 03/10/2023 0.76 0.58 - 0.96 mg/dL Final Creatinine (POCT) Date Value Ref Range Status 09/02/2023 0.80 0.7 - 1.4 mg/dL Final eGFR (POCT) Date Value Ref Range Status 09/02/2023 >60 mL/min/1.73 m2 Final eGFR- Date Value Ref Range Status 11/28/2021 >60 Final P.O.C.T. RESULTS: POC done: Yes, See Lab Tab September 02, 2023 TREATMENT: No Hydration needed. IV SITE: Ambulatory: A peripheral IV was started in the Right antecubital site with a Angio cath: 20 gauge. and A Saline lock was inserted per protocol IV SITE APPEARANCE: Clean,Dry and Intact SIGNATURE: Kaela Lara RN PATIENT NAME: Swathi Valladares DATE: September 02, 2023 TIME: 2:32 PM Radiology Service Progress Note PATIENT NAME: Swathi Valladares DATE OF SERVICE: September 02, 2023 TIME: 2:42 PM PATIENT IDENTITY VERIFICATION COMPLETED USING TWO (2) IDENTIFIERS: Name and Date of confirmed by patient verbally. FALL SCREENING: Has the patient had 2 falls in the last year or 1 fall with injury or currently using an Ambulatory Assistive Device (Walker, Cane, Wheelchair, Crutches, etc.)? No PATIENT GENDER DATA: Female. status: : No status: NO. PATIENT RELEVANT IMPLANT DATA REVIEWED: Yes RADIOLOGY DEPARTMENT: CT; Exam(s) Completed: Cardiac PERIPHERAL IV DATA: Site assessment: Clean,Dry and Intact, Site disposition Discontinued SIGNED BY: RT Darryn(R) September 02, 2023 2:42 PM documented in this encounter [facility] 08-29-2023 Note HNO ID: [id number] Author: Toña Garcia MD Service: ? Author Type: Physician Type: Progress Notes Filed: 08/29/2023 2:05 PM Note Text: Heart, Vascular [facility] Thoracic [place] [facility] Department of Cardiovascular Medicine SECTION OF INTERVENTIONAL CARDIOLOGY OUTPATIENT VISIT DATE August 29, 2023 OUTPATIENT VISIT TYPE ESTABLISHED PRIMARY CARE PHYSICIAN: Vivi Liao ([facility]) [address] [place] [phone] REFERRING PHYSICIAN: No referring provider defined for this encounter. CHIEF COMPLAINT: ROMY VinV 23 mm S3 11/29/2021 HISTORY OF PRESENT ILLNESS: Ms. Valladares is overall doing well. She had her tumor operation and was off aspirin for a few days. She states that her cough is come back as it was pre-TAVR. Otherwise functionally she remains in reasonably good shape. Echocardiography today shows an LVEF of 67%. The right heart is normal in structure and function. The mitral valve is normal, there is 1+ TR. The aortic bioprosthetic valve is well-seated. Peak/mean transaortic gradients of 40/24 mmHg respectively, the DI 0.37. These gradients have gone up significantly since her last echocardiogram by the prior mean trans aortic gradients was 14 mmHg with a DI of 0.49. PAST CARDIAC HISTORY: See HPI PAST MEDICAL HISTORY Diagnosis Date Aortic stenosis Bicuspid aortic valve COVID-19 03/2022 History of gastrointestinal stromal tumor (GIST) Mitral valve prolapse Prosthetic aortic valve stenosis PAST SURGICAL HISTORY Procedure Laterality Date COLONOSCOPY SCREENING 2018 HYSTERECTOMY LEFT HEART CATH,PERCUTANEOUS PAST SURGICAL HISTORY OF 1979 vocal chord polyp removal, second surgery insert plate SHX AORTIC VALVE REPLACEMENT 2018 #[address] Jeremi LOPEZ OPER STRES INCONTINENCE TAVR/ROMY PERCUT 11/29/2021 Transcatheter Aortic Valve Replacement SOCIAL HISTORY Social History Tobacco Use Smoking status: Never Passive exposure: Never Smokeless tobacco: Never Substance Use Topics Alcohol use: Not Currently Comment: rare Drug use: Never FAMILY HISTORY Problem Relation Age of Onset Hypertension Mother Skin Cancer Mother Cancer Father at 40 from liver cancer COPD Sister Skin Cancer Brother ALLERGIES: ALLERGIES No Known Allergies MEDICATIONS: Current Outpatient Medications Medication Sig amoxicillin (AMOXIL) 500 mg capsule Take 500 mg by mouth as needed. Prior to dental procedures Cholecalciferol, Vitamin D3, (VITAMIN D-3) 10 mcg (400 unit) chew Take 1 tablet by mouth once daily. pediatric multivitamin no.76 (FLINTSTONES COMPLETE ORAL) Take 2 tablets by mouth once daily. ondansetron (ZOFRAN) 8 mg tablet Take 8 mg by mouth every 8 hours as needed for nausea/vomiting. ascorbic acid (VITAMIN C ORAL) Take by mouth once daily. cyanocobalamin, vitamin B-12, (VITAMIN B-12 ORAL) Take by mouth once daily. hydrOXYchloroQUINE (PLAQUENIL) 200 mg tablet Take 200 mg by mouth once daily. aspirin 81 mg chewable tablet Take 162 mg by mouth once daily. Current Facility-Administered Medications Medication Dose Route Frequency perflutren lipid microspheres 1.3 mL in NaCl (PF) 0.9% 10 mL injection (DEFINITY) INTRAVENOUS DIRECTED PRN sodium chloride 0.9 % (flush) 10 mL (BD POSIFLUSH) 10 mL INTRAVENOUS DIRECTED PRN REVIEW OF SYSTEMS: GENERAL: negative for: fevers, chills, and change in weight HEENT: negative for: headaches, hearing loss, difficulty swallowing, visual changes, nose bleeds, dentures, own teeth SKIN: rashes, lesions, and ulcers RESPIRATORY: SEE HPI CARDIOVASCULAR: See HPI GASTROINTESTINAL: negative for: abdominal pain, nausea, vomiting, difficulty or painful swallowing, and melanotic stools GENITOURINARY: negative for: dysuria, frequency, nocturia, and male potency MUSCULOSKELETAL: negative for: joint pain, joint swelling, muscle pain or myalgias, and pain with walking NEUROLOGIC: negative for: numbness, tingling, and sensation of pins and needles HEMATOLOGY: negative for: bruising easily, prolonged bleeding, anemia, and cancer ENDOCRINE: negative for: cold or heat intolerance, polyuria, polydipsia, goiter, diabetes, and thyroid disease PSYCH: negative for: sleep disturbance, mood disorders, and recent psychosocial stressors PHYSICAL EXAMINATION: BP 139/90 Pulse 66 Resp 16 Ht 5' 2.99 (1.60m) Wt 120 lb 6.4 oz (54.6kg) SpO2 99% BMI 21.33 kg/(m2). General: Well appearing, in no acute distress, speaking in complete sentences. Skin: No clubbing, no cyanosis. Head/Eyes: Extra ocular movements intact Mouth: Teeth in good repair. Neck: No jugular venous distention, no carotid bruits, carotids have a normal upstroke, no palpable thyromegaly. Lungs: Clear to auscultation and no rales Heart: Regular rhythm, PMI not displaced, S1, S2 normal, no S3, no S4, no heaves, no rub and no murmur. (more content not included)... [facility] 08-29-2023 Instructions Toña Garcia MD - 08/29/2023 2:[address] scan and then we can do a phone visit shortly after to discuss results documented in this encounter [facility] 08-29-2023 History of Present illness Narrative Images from the original note were not included. Heart, Vascular and Thoracic [place] [facility] Department of Cardiovascular Medicine SECTION OF INTERVENTIONAL CARDIOLOGY OUTPATIENT VISIT DATE August 29, 2023 OUTPATIENT VISIT TYPE ESTABLISHED PRIMARY CARE PHYSICIAN: Vivi Liao ([facility]) [address] [place] [phone] REFERRING PHYSICIAN: No referring provider defined for this encounter. CHIEF COMPLAINT: ROMY VinV 23 mm S3 11/29/2021 HISTORY OF PRESENT ILLNESS: Ms. Valladares is overall doing well. She had her tumor operation and was off aspirin for a few days. She states that her cough is come back as it was pre-TAVR. Otherwise functionally she remains in reasonably good shape. Echocardiography today shows an LVEF of 67%. The right heart is normal in structure and function. The mitral valve is normal, there is 1+ TR. The aortic bioprosthetic valve is well-seated. Peak/mean transaortic gradients of 40/24 mmHg respectively, the DI 0.37. These gradients have gone up significantly since her last echocardiogram by the prior mean trans aortic gradients was 14 mmHg with a DI of 0.49. PAST CARDIAC HISTORY: See HPI PAST MEDICAL HISTORY Diagnosis Date Aortic stenosis Bicuspid aortic valve COVID-19 03/2022 History of gastrointestinal stromal tumor (GIST) Mitral valve prolapse Prosthetic aortic valve stenosis PAST SURGICAL HISTORY Procedure Laterality Date COLONOSCOPY SCREENING 2018 HYSTERECTOMY LEFT HEART CATH,PERCUTANEOUS PAST SURGICAL HISTORY OF 1979 vocal chord polyp removal, second surgery insert plate SHX AORTIC VALVE REPLACEMENT 2018 #[address] Jeremi LOPEZ OPER STRES INCONTINENCE TAVR/ROMY PERCUT 11/29/2021 Transcatheter Aortic Valve Replacement SOCIAL HISTORY Social History Tobacco Use Smoking status: Never Passive exposure: Never Smokeless tobacco: Never Substance Use Topics Alcohol use: Not Currently Comment: rare Drug use: Never FAMILY HISTORY Problem Relation Age of Onset Hypertension Mother Skin Cancer Mother Cancer Father at 40 from liver cancer COPD Sister Skin Cancer Brother ALLERGIES: ALLERGIES No Known Allergies MEDICATIONS: Current Outpatient Medications Medication Sig amoxicillin (AMOXIL) 500 mg capsule Take 500 mg by mouth as needed. Prior to dental procedures Cholecalciferol, Vitamin D3, (VITAMIN D-3) 10 mcg (400 unit) chew Take 1 tablet by mouth once daily. pediatric multivitamin no.76 (FLINTSTONES COMPLETE ORAL) Take 2 tablets by mouth once daily. ondansetron (ZOFRAN) 8 mg tablet Take 8 mg by mouth every 8 hours as needed for nausea/vomiting. ascorbic acid (VITAMIN C ORAL) Take by mouth once daily. cyanocobalamin, vitamin B-12, (VITAMIN B-12 ORAL) Take by mouth once daily. hydrOXYchloroQUINE (PLAQUENIL) 200 mg tablet Take 200 mg by mouth once daily. aspirin 81 mg chewable tablet Take 162 mg by mouth once daily. Current Facility-Administered Medications Medication Dose Route Frequency perflutren lipid microspheres 1.3 mL in NaCl (PF) 0.9% 10 mL injection (DEFINITY) INTRAVENOUS DIRECTED PRN sodium chloride 0.9 % (flush) 10 mL (BD POSIFLUSH) 10 mL INTRAVENOUS DIRECTED PRN REVIEW OF SYSTEMS: GENERAL: negative for: fevers, chills, and change in weight HEENT: negative for: headaches, hearing loss, difficulty swallowing, visual changes, nose bleeds, dentures, own teeth SKIN: rashes, lesions, and ulcers RESPIRATORY: SEE HPI CARDIOVASCULAR: See HPI GASTROINTESTINAL: negative for: abdominal pain, nausea, vomiting, difficulty or painful swallowing, and melanotic stools GENITOURINARY: negative for: dysuria, frequency, nocturia, and male potency MUSCULOSKELETAL: negative for: joint pain, joint swelling, muscle pain or myalgias, and pain with walking NEUROLOGIC: negative for: numbness, tingling, and sensation of pins and needles HEMATOLOGY: negative for: bruising easily, prolonged bleeding, anemia, and cancer ENDOCRINE: negative for: cold or heat intolerance, polyuria, polydipsia, goiter, diabetes, and thyroid disease PSYCH: negative for: sleep disturbance, mood disorders, and recent psychosocial stressors PHYSICAL EXAMINATION: BP 139/90 Pulse 66 Resp 16 Ht 5' 2.99 (1.60m) Wt 120 lb 6.4 oz (54.6kg) SpO2 99% BMI 21.33 kg/(m^2). General: Well appearing, in no acute distress, speaking in complete sentences. Skin: No clubbing, no cyanosis. Head/Eyes: Extra ocular movements intact Mouth: Teeth in good repair. Neck: No jugular venous distention, no carotid bruits, carotids have a normal upstroke, no palpable thyromegaly. Lungs: Clear to auscultation and no rales Heart: Regular rhythm, PMI not displaced, S1, S2 normal, no S3, no S4, no heaves, no rub and no murmur. PV Pulses:Pulses intact Abdomen: Soft, nontender, bowel sounds normal, no palpable organomegaly, no bruits. Extremities: No peripheral edema . Grade 2/4 distal pulses bilaterally. Edema Scale: No Musculoskeletal: Normal gait and ambulation Neuro: Oriented to time, place and person CARDIOVASCULAR MEDICINE TESTING: Echocardiogram: As described above Last CT Result Conclusion CT CHEST W IVCON Exam End: 03/10/2023 9:31 AM (Final result) Impression: IMPRESSION: 1. No evidence of new intrathoracic abnormalities since 10/08/22. 2. Persistent prominent mucous plugging in the right lower lobe. 3. Subcentimeter nodular opacities measuring less than 5 mm, stable. 4. Mild bilateral lower lung field reticular opacities and groundglass opacities, stable. Transcribe Date/Time: Mar 10 2023 4:14P Dictated by: ROGER CANTU MD This examination was interpreted and the report reviewed and electronically signed by: ROGER CANTU MD on Mar 10 2023 4:28PM EST Thank you for allowing us to participate in the care of your patient. Should there be any questions regarding this interpretation, please call [phone]. If you are unable to reach us at the number above, please feel free to contact [facility] at [phone]. I have personally reviewed the Echocardiogram. 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 PLAN AND RECOMMENDATIONS: We will order a CT angiogram specifically focusing on her aortic valve for HALT. Will do a phone visit shortly after to discuss these results and whether she needs to go back on Eliquis. Toña Garcia MD, PhD, FRACP Clinical Staff, [employer] Positioner silverware etcher Director, [facility], [facility] Department of Cardiovascular Medicine Heart and Vascular [place] [facility] Desk [place] [id number] Office This letter was dictated using a voice recognition program, please excuse any typos. CONTACT INFORMATION: documented in this encounter [facility] 07-31-2023 Miscellaneous Notes Office informed pt the doctor will not be in the office on 08/01 and has been rescheduled to 08/29. Pt will call office if she will need to rescedule. Pt thanked office for the call documented in this encounter [facility] 07-22-2023 Note HNO ID: [id number] Author: Juliette Butts MD Service: ? Author Type: Physician Type: Progress Notes Filed: 07/22/2023 2:30 PM Note Text: VIRTUAL VISIT PROGRESS NOTE This is a virtual visit using Review Trackerst Zoom Video Visit. It required patient-provider interaction for the medical decision making as documented below. I have communicated my name and active licensure. The patient's identity and physical location were verified at the time of this visit. Either the patient or their legal representative government relations has been informed of the risks and benefits of -- and alternatives to -- treatment through a remote evaluation and consents to proceed with the evaluation remotely. Swathi Valladares is a 68 year old female seen for possible hypoglycemia. HISTORY REVIEWED (electronic chart updated): PAST MEDICAL HISTORY Diagnosis Date Aortic stenosis Bicuspid aortic valve COVID-19 03/2022 History of gastrointestinal stromal tumor (GIST) Mitral valve prolapse Prosthetic aortic valve stenosis PAST SURGICAL HISTORY Procedure Laterality Date COLONOSCOPY SCREENING 2018 HYSTERECTOMY LEFT HEART CATH,PERCUTANEOUS PAST SURGICAL HISTORY OF 1979 vocal chord polyp removal, second surgery insert plate SHX AORTIC VALVE REPLACEMENT 2018 #[address] Jeremi LOPEZ OPER STRES INCONTINENCE TAVR/ROMY PERCUT 11/29/2021 Transcatheter Aortic Valve Replacement FAMILY HISTORY Problem Relation Age of Onset Hypertension Mother Skin Cancer Mother Cancer Father at 40 from liver cancer COPD Sister Skin Cancer Brother Social History Tobacco Use Smoking status: Never Passive exposure: Never Smokeless tobacco: Never Substance Use Topics Alcohol use: Not Currently Comment: rare Drug use: Never Current Outpatient Medications Medication Sig ascorbic acid (VITAMIN C ORAL) Take by mouth once daily. cyanocobalamin, vitamin B-12, (VITAMIN B-12 ORAL) Take by mouth once daily. hydrOXYchloroQUINE (PLAQUENIL) 200 mg tablet TAKE 1 TABLET BY MOUTH TWICE DAILY WITH FOOD AND YEARLY EYE EXAM aspirin 81 mg chewable tablet Take 162 mg by mouth once daily. therapeutic multivitamin (THERA VITAMIN) tablet Take 1 tablet by mouth daily with breakfast. Current Facility-Administered Medications Medication Dose Route Frequency perflutren lipid microspheres 1.3 mL in NaCl (PF) 0.9% 10 mL injection (DEFINITY) INTRAVENOUS DIRECTED PRN sodium chloride 0.9 % (flush) 10 mL (BD POSIFLUSH) 10 mL INTRAVENOUS DIRECTED PRN perflutren lipid microspheres 1.3 mL in NaCl (PF) 0.9% 10 mL injection (DEFINITY) INTRAVENOUS DIRECTED PRN sodium chloride 0.9 % (flush) 10 mL (BD POSIFLUSH) 10 mL INTRAVENOUS DIRECTED PRN ALLERGIES No Known Allergies Review of patient's past medical history indicates: Patient had partial gastrectomy for GIST tumor. Since surgery she developed hypoglycemia like episodes that happen 2-3 times a week. She becomes shaky, sweaty and it feels like I will . She than eats or drinks something and her symptoms improve over the course of 20-30 min. She did not notice any specific trigger for these episodes but she noticed that these happen 2-3 hours after eating. She already sticks to the frequent small meals. She never measured her glucose level during these episodes. ROS: Energy is good. Sleeps well. Weight has lost about 30 lbs before GIST surgery and is stable since. No difficulties swallowing or breathing. No pain or tenderness from thyroid bed. No heart palpitations. No temperature intolerance. No excessive sweating No constipation or diarrhea. No problems with skin, hair or nails. No muscle weaknes. No muscle cramping. No tremors. Memory is good. No problems focusing. SOC HX: No smoking or drinking. . 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 FAM HX: No similar disese in the family. PE: Middle aged CC female. No acute distress, alert and oriented and in appropriate mood. HEENT: Nancy, sclera anicteric, conjunctiva non inflamed, oral mucosa moist, no lesions. No lid lag. No stare. No exophtalmos. NECK: No goiter. EXT: No edema or deformities. SKIN: no rash or lesions. No achantosis nigricans. NEURO: No focal signs. No tremors. Assessment and Plan: Her symptoms are typical for reactive hypoglycemia. I advised her to go to low carb diet and maintain frequent small meals. She will do laboratory measurement of glucose and insulin when she has episode at work. We will stay in touch using My-chart. Juliette Butts MD Answers submitted by the patient for this visit: Endocrine Review of Systems (Submitted on 07/16/2023) Fatigue: Yes Night Sweats: No Recent Unintentional Weight Change: No Skin Color Changes: No Post-Nasal Drip: Yes Thyroid Pain (lower neck): No Trouble Swallowing: No Chest Pain: No Leg Swelling: No Blood Clots?: No Leg Pain while walking?: No Heartburn: No Nausea: Yes Vomitin (more content not included)... [facility] 07-22-2023 History of Present illness Narrative VIRTUAL VISIT PROGRESS NOTE This is a virtual visit using Review Trackerst Zoom Video Visit. It required patient-provider interaction for the medical decision making as documented below. I have communicated my name and active licensure. The patient's identity and physical location were verified at the time of this visit. Either the patient or their legal representative government relations has been informed of the risks and benefits of -- and alternatives to -- treatment through a remote evaluation and consents to proceed with the evaluation remotely. Swathi Valladares is a 68 year old female seen for possible hypoglycemia. HISTORY REVIEWED (electronic chart updated): PAST MEDICAL HISTORY Diagnosis Date Aortic stenosis Bicuspid aortic valve COVID-19 03/2022 History of gastrointestinal stromal tumor (GIST) Mitral valve prolapse Prosthetic aortic valve stenosis PAST SURGICAL HISTORY Procedure Laterality Date COLONOSCOPY SCREENING 2018 HYSTERECTOMY LEFT HEART CATH,PERCUTANEOUS PAST SURGICAL HISTORY OF 1979 vocal chord polyp removal, second surgery insert plate SHX AORTIC VALVE REPLACEMENT 2018 #[address] Jeremi LOPEZ OPER STRES INCONTINENCE TAVR/ROMY PERCUT 11/29/2021 Transcatheter Aortic Valve Replacement FAMILY HISTORY Problem Relation Age of Onset Hypertension Mother Skin Cancer Mother Cancer Father at 40 from liver cancer COPD Sister Skin Cancer Brother Social History Tobacco Use Smoking status: Never Passive exposure: Never Smokeless tobacco: Never Substance Use Topics Alcohol use: Not Currently Comment: rare Drug use: Never Current Outpatient Medications Medication Sig ascorbic acid (VITAMIN C ORAL) Take by mouth once daily. cyanocobalamin, vitamin B-12, (VITAMIN B-12 ORAL) Take by mouth once daily. hydrOXYchloroQUINE (PLAQUENIL) 200 mg tablet TAKE 1 TABLET BY MOUTH TWICE DAILY WITH FOOD AND YEARLY EYE EXAM aspirin 81 mg chewable tablet Take 162 mg by mouth once daily. therapeutic multivitamin (THERA VITAMIN) tablet Take 1 tablet by mouth daily with breakfast. Current Facility-Administered Medications Medication Dose Route Frequency perflutren lipid microspheres 1.3 mL in NaCl (PF) 0.9% 10 mL injection (DEFINITY) INTRAVENOUS DIRECTED PRN sodium chloride 0.9 % (flush) 10 mL (BD POSIFLUSH) 10 mL INTRAVENOUS DIRECTED PRN perflutren lipid microspheres 1.3 mL in NaCl (PF) 0.9% 10 mL injection (DEFINITY) INTRAVENOUS DIRECTED PRN sodium chloride 0.9 % (flush) 10 mL (BD POSIFLUSH) 10 mL INTRAVENOUS DIRECTED PRN ALLERGIES No Known Allergies Review of patient's past medical history indicates: Patient had partial gastrectomy for GIST tumor. Since surgery she developed hypoglycemia like episodes that happen 2-3 times a week. She becomes shaky, sweaty and it feels like I will . She than eats or drinks something and her symptoms improve over the course of 20-30 min. She did not notice any specific trigger for these episodes but she noticed that these happen 2-3 hours after eating. She already sticks to the frequent small meals. She never measured her glucose level during these episodes. ROS: Energy is good. Sleeps well. Weight has lost about 30 lbs before GIST surgery and is stable since. No difficulties swallowing or breathing. No pain or tenderness from thyroid bed. No heart palpitations. No temperature intolerance. No excessive sweating No constipation or diarrhea. No problems with skin, hair or nails. No muscle weaknes. No muscle cramping. No tremors. Memory is good. No problems focusing. SOC HX: No smoking or drinking. . 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 FAM HX: No similar disese in the family. PE: Middle aged CC female. No acute distress, alert and oriented and in appropriate mood. HEENT: Nancy, sclera anicteric, conjunctiva non inflamed, oral mucosa moist, no lesions. No lid lag. No stare. No exophtalmos. NECK: No goiter. EXT: No edema or deformities. SKIN: no rash or lesions. No achantosis nigricans. NEURO: No focal signs. No tremors. Assessment and Plan: Her symptoms are typical for reactive hypoglycemia. I advised her to go to low carb diet and maintain frequent small meals. She will do laboratory measurement of glucose and insulin when she has episode at work. We will stay in touch using My-chart. Juliette Butts MD Answers submitted by the patient for this visit: Endocrine Review of Systems (Submitted on 07/16/2023) Fatigue: Yes Night Sweats: No Recent Unintentional Weight Change: No Skin Color Changes: No Post-Nasal Drip: Yes Thyroid Pain (lower neck): No Trouble Swallowing: No Chest Pain: No Leg Swelling: No Blood Clots?: No Leg Pain while walking?: No Heartburn: No Nausea: Yes Vomiting?: No Diarrhea: Yes Constipation: Yes Abdominal Pain: No Bone Pain?: Yes Muscle Aches: No Muscle Weakness: No Joint Pain or Stiffness: Yes Headaches: No Dizziness: Yes Numbness?: No Urgency to Urinate?: No Increased Urination?: No Slow or Small Urine Stream?: No Have your menstrual cycles stopped?: Yes Flushing?: No Hot Flashes?: No Increased Thirst: No Change in Body Hair?: Yes Cold Intolerance: No Heat Intolerance?: No documented in this encounter [facility] 06-30-2023 Miscellaneous Notes Office called to inform patient the doctor will not be in the office this week and her appointment will be rescheduled. Left detailed vm. documented in this encounter [facility] 06-18-2023 Miscellaneous Notes Patient has been scheduled for lab. Rut Pearce 06/04/23 encounter per Pilo, okay to come early for labs. Pt called today to schedule for tomorrow at 11 am. She reports continued symptoms of decreased appetite, increased fatigue, constipation, nausea, numbness/pain to her lower extremities, and joint pain. She is scheduled at her [employer] tomorrow as Pilo recommended. She is aware we will call with lab results once resulted, and will call with any additional needs or recommendations following her appt tomorrow. PSS: Please schedule pt for lab 06/19 at 11 Shirin Salvador RN documented in this encounter [facility] 06-04-2023 Miscellaneous Notes Pt notified of 's recommendations and verbalizes understanding. Disposition: per Dr Sol, patient directed to: Manage at home. Provided instructions and will call back. Pt reports that she made a lab appointment on line for 06/18 @ 9 AM. Linette Davis RN She doesn't have multiple myeloma. M-spike is 0. Her IgG is elevated due to her underlying auto-immune disorder which is likely what is driving her symptoms. 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 If she would feel better and would like to get her labs done now, - I have placed an order. Pt calls voicing concerns that she has multiple myeloma. C/o decreased appetite, increased fatigue, constipation, nausea, numbness/pain to her lower extremities, and joint pain. Reports her symptoms began a few weeks ago. Last set of myeloma labs were drawn in March. Next set due to be drawn in September w/ scans. Pt has plans to go out of the country next week, but is fearful to travel due to how she feels currently. What do you advise? Linette Davis RN documented in this encounter [facility] 03-17-2023 Note HNO ID: [id number] Author: Eric Sol MD Service: ? 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 Tissue quantity was insufficient for mutational analysis. She got neoadjuvant imatinib 400 mg daily. Now resected. 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 Remains low risk (3.6% rate of recurrence) despite size of tumor. 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 Anemia: improved. 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 She is also following with dermatology for vasculitis. She is now on hydroxychloroquine. Continue follow ups with dermatology and rheumatology. WBC count decreased due to plaquenil - not neutropenic. IgG elevated. K/L ratio elevated consistent with underlying autoimmune disease. PLAN: CT CAP in 6 months - labs same day. RTC after to review Draw myeloma labs with scans for elevated protein level Continue Replacing B12 SL OTC. Patient will follow up with Dr. Judd as needed (Have discussed with him) HPI: CASE HISTORY: Reverse chronological order 03/10/2023 - CT CAP: no evidence of recurrence 11/04/2022 - CT CAP: Chronic changes in the lungs otherwise no evidence of recurrence on chest or abdominal/pelvic series. 07/24/2022 - CT CAP: no evidence of metastatic disease. Mild prominence of intra/extra hepatic bile ducts - no mass. 04/24/2022 - ex-Lap, distal karsten-gastrectomy, Billroth I recon, GIST 9.5 cm, 3 mitoses per 5 mm2 - T3 N0 C-kit, PDGFR, and BRAF wild-type, low risk disease. SDHB deficiency, NTRK (-) 04/16/2022 - CT CAP - stable thoracic LN, and pulmonary nodules; unchanged exophytic heterogeneously enhancing gastric mass., 1.1 cm right renal complex cycst - new. January 29, 2022 CT chest abdomen pelvis with stable gastric mass and borderline chest adenopathy December 19, 2021 started imatinib 400 mg daily November 27, 2021 CT chest negative for thoracic spread. PET scan showed heterogeneous uptake in the known GIST and a focus of uptake in the right hemipelvis may be secondary to ureteral and/or janice uptake. Follow up CT abdomen pelvis on December 07, 2021 was without any pelvic adenopathy. November 15, 2021 tumor board recommendations were to do a CT chest to complete staging. There was a concern for for a paraaortic node that needed for be evaluated by a PET November 07, 2021 EGD EUS (Dr. Cuello) notable for gastric tumor on the lesser curvature; cytology showed a spindle cell neoplasm consistent with GIST (positive staining for CD117 and Dog 1, negative for desmin) August 17, 2021 CT chest abdomen pelvis notable for large heterogeneous mass in the left abdomen measuring 7.6 x 6.1 x 10.8 cm, nonspecific groundglass opacities in lungs and borderline enlarged mediastinal nodes Presented initially with worsening dyspnea in the setting of restenosis of a previously placed aortic valve. Got CT scans as a part of the evaluation prior to TAVR Updated Visit, March 17, 2023: Doing well overall. Scans and labs reviewed. Protein is elevated and unchanged although k/lL ratio is elevated. No M-spike. IgG elevated and liley related to her sjogren's. Also has decreased WBC's but not neutropenic. Likely related to plaquenil. Updated Visit, November 11, 2022: Doing well - Lupus seems to have resolved following resection of GIST. Still fatigued a lot which is unusual for her. T. Protein is elevated and will have additional labs drawn today. CT is reviewed without evidence of recurrence. Updated Visit, August 01, 2022: Swathi comes back - she is overwhelmed and gt her appointments mixed up. Review of her sans indicate no recurrence or distant mets. She remains malnourished but is trying. Will coordinate future follow up with Dr. Judd. Overall, she feels well. Updated Visit, May 22, 2022: Swathi comes back for follow-up. Since last visit, she has been resected and is recovering. She is transitioning her care to ma. Reviewed labs, procedures and pathology. We discussed staging and risk. NCCN rec's as well. I don't think she has clear benefit to the continued use of Imatinib. ROS is negative except that mentioned in HPI PAST MEDICAL SURGICAL FAMILY AND SOCIAL HISTORY: She has a history of -Prosthetic aortic valve for bicuspid aortic stenosis, complicated by reste (more content not included)... [facility] 03-17-2023 Instructions Eric Sol MD - 03/17/2023 9:[address] CAP in 6 months - labs same day. RTC after to review Draw myeloma labs with scans for elevated protein level Continue Replacing B12 SL OTC. Patient will follow up with Dr. Judd as needed (Have discussed with him) documented in this encounter [facility] 03-17-2023 History of Present illness Narrative Images from the original note were not included. 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 Tissue quantity was insufficient for mutational analysis. She got neoadjuvant imatinib 400 mg daily. Now resected. 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 Remains low risk (3.6% rate of recurrence) despite size of tumor. 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 Anemia: improved. 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 She is also following with dermatology for vasculitis. She is now on hydroxychloroquine. Continue follow ups with dermatology and rheumatology. WBC count decreased due to plaquenil - not neutropenic. IgG elevated. K/L ratio elevated consistent with underlying autoimmune disease. PLAN: CT CAP in 6 months - labs same day. RTC after to review Draw myeloma labs with scans for elevated protein level Continue Replacing B12 SL OTC. Patient will follow up with Dr. Judd as needed (Have discussed with him) HPI: CASE HISTORY: Reverse chronological order 03/10/2023 - CT CAP: no evidence of recurrence 11/04/2022 - CT CAP: Chronic changes in the lungs otherwise no evidence of recurrence on chest or abdominal/pelvic series. 07/24/2022 - CT CAP: no evidence of metastatic disease. Mild prominence of intra/extra hepatic bile ducts - no mass. 04/24/2022 - ex-Lap, distal karsten-gastrectomy, Billroth I recon, GIST 9.5 cm, 3 mitoses per 5 mm2 - T3 N0 C-kit, PDGFR, and BRAF wild-type, low risk disease. SDHB deficiency, NTRK (-) 04/16/2022 - CT CAP - stable thoracic LN, and pulmonary nodules; unchanged exophytic heterogeneously enhancing gastric mass., 1.1 cm right renal complex cycst - new. January 29, 2022 CT chest abdomen pelvis with stable gastric mass and borderline chest adenopathy December 19, 2021 started imatinib 400 mg daily November 27, 2021 CT chest negative for thoracic spread. PET scan showed heterogeneous uptake in the known GIST and a focus of uptake in the right hemipelvis may be secondary to ureteral and/or janice uptake. Follow up CT abdomen pelvis on December 07, 2021 was without any pelvic adenopathy. November 15, 2021 tumor board recommendations were to do a CT chest to complete staging. There was a concern for for a paraaortic node that needed for be evaluated by a PET November 07, 2021 EGD EUS (Dr. Cuello) notable for gastric tumor on the lesser curvature; cytology showed a spindle cell neoplasm consistent with GIST (positive staining for CD117 and Dog 1, negative for desmin) August 17, 2021 CT chest abdomen pelvis notable for large heterogeneous mass in the left abdomen measuring 7.6 x 6.1 x 10.8 cm, nonspecific groundglass opacities in lungs and borderline enlarged mediastinal nodes Presented initially with worsening dyspnea in the setting of restenosis of a previously placed aortic valve. Got CT scans as a part of the evaluation prior to TAVR Updated Visit, March 17, 2023: Doing well overall. Scans and labs reviewed. Protein is elevated and unchanged although k/lL ratio is elevated. No M-spike. IgG elevated and liley related to her sjogren's. Also has decreased WBC's but not neutropenic. Likely related to plaquenil. Updated Visit, November 11, 2022: Doing well - Lupus seems to have resolved following resection of GIST. Still fatigued a lot which is unusual for her. T. Protein is elevated and will have additional labs drawn today. CT is reviewed without evidence of recurrence. Updated Visit, August 01, 2022: Swathi comes back - she is overwhelmed and gt her appointments mixed up. Review of her sans indicate no recurrence or distant mets. She remains malnourished but is trying. Will coordinate future follow up with Dr. Judd. Overall, she feels well. Updated Visit, May 22, 2022: Swathi comes back for follow-up. Since last visit, she has been resected and is recovering. She is transitioning her care to me. Reviewed labs, procedures and pathology. We discussed staging and risk. NCCN rec's as well. I don't think she has clear benefit to the continued use of Imatinib. ROS is negative except that mentioned in HPI PAST MEDICAL SURGICAL FAMILY AND SOCIAL HISTORY: She has a history of -Prosthetic aortic valve for bicuspid aortic stenosis, complicated by restenosis, status post TAVR -Mitral valve prolapse -On chronic anticoagulation -Anemia, normocytic, either malignancy related versus autoimmune (positive LÁZARO and SSB) -Vocal cord nodule, resected, complicated by paralysis of right vocal cord -Gastroesophageal reflux -Chronic cough and dyspnea -Sjogren's hypocomplementemia Previous surgeries include aortic valve replacement, TAVR, sling operation for stress incontinence and resection of vocal cord nodule. Family history significant for liver cancer in father. No substance abuse. MEDICATIONS AND ALLERGIES: Reviewed PHYSICAL EXAM BP 167/86 Pulse 61 Temp 36.8 C (98.2 F) (Temporal) Resp 16 Ht 160 cm (5' 2.99 ) Wt 56.3 kg (124 lb 3.2 oz) SpO2 99% BMI 22.01 kg/m PS - 0, Head atraumatic, no pallor, icterus or lymphadenopathy, lungs clear to auscultation, heart sounds with a systolic murmur, abdomen with a firm mass in the central portion that is non-tender, extremities with vasculitic rash on shins, alert and oriented x3, power 5/5 in all extremities, no nystagmus, cranial nerves intact LABORATORY, IMAGING AND PATHOLOGY WBC (k/uL) Date Value 03/10/2023 2.83 (L) RBC (m/uL) Date Value 03/10/2023 4.41 Hemoglobin (g/dL) Date Value 03/10/2023 13.4 Hematocrit (%) Date Value 03/10/2023 40.2 MCV (fL) Date Value 03/10/2023 91.2 MCH (pg) Date Value 03/10/2023 30.4 MCHC (g/dL) Date Value 03/10/2023 33.3 RDW-CV (%) Date Value 03/10/2023 12.2 Platelet Count (k/uL) Date Value 03/10/2023 178 MPV (fL) Date Value 03/10/2023 9.2 Glucose (mg/dL) Date Value 03/10/2023 94 BUN (mg/dL) Date Value 03/10/2023 15 Creatinine (mg/dL) Date Value 03/10/2023 0.76 Sodium (mmol/L) Date Value 03/10/2023 138 Potassium (mmol/L) Date Value 03/10/2023 3.7 Chloride (mmol/L) Date Value 03/10/2023 104 CO2 (mmol/L) Date Value 03/10/2023 27 Protein, Total (g/dL) Date Value 03/10/2023 9.3 (H) 03/10/2023 9.0 (H) Albumin (g/dL) Date Value 03/10/2023 4.2 Calcium, Total (mg/dL) Date Value 03/10/2023 10.1 Alkaline Phosphatase (U/L) Date Value 03/10/2023 104 Bilirubin, Total (mg/dL) Date Value 03/10/2023 0.8 AST (U/L) Date Value 03/10/2023 18 ALT (U/L) Date Value 03/10/2023 13 Cholesterol, Total (mg/dL) Date Value 08/21/2022 132 Triglyceride (mg/dL) Date Value 08/21/2022 51 Skin biopsy results reviewed I spent a total of 30 minutes on the date of the service which included preparing to see the patient, [id number] patient care, completing clinical documentation, obtaining and/or reviewing separately obtained history, performing a medically appropriate examination, counseling and educating the patient/family/caregiver, ordering medications, tests, or procedures, independently interpreting results (not separately reported) and communicating results to the patient/family/caregiver. Eric Sol MD, CPE Hematology and Oncology Services Provided at: [facility], [place], [place] Vivi Liao (PCP), Cholo Smith (GI), Toña Garcia (cards), Kassie Oconnor (rheum) documented in this encounter [facility] 03-17-2023 Nurse Note Patient would like to know if she should stop B12 due to her levels and also wants to know what could be causing protein to be so elevated. Rach Aguiar MA documented in this encounter [facility] 03-10-2023 Note HNO ID: [id number] Author: Radha Negrete RN Service: ? Author Type: Registered Nurse Type: Progress Notes Filed: 03/10/2023 9:19 AM Note Text: Summary: [id number] Informed Consent CASE [id number] ([id number]): Tissue and Body Fluid Analysis from Patients with Cancer and Other Risk- Associated Lesions Patient seen in clinic for informed consent of the above mentioned protocol. Patient agrees to participate in the above mentioned research study. The patient has signed a copy of the informed consent. Patient has contact information for the study team and Dr. Eric Sol M.D. See consent note in Epic. Radha Negrete, MSN, RN Clinical Research Nurse [facility] 03-10-2023 Note HNO ID: [id number] Author: RT Kumar(R) Service: ? Author Type: Technologist Type: Progress Notes Filed: 03/10/2023 8:46 AM Note Text: Radiology Service Progress Note PATIENT NAME: Swathi Valladares DATE OF SERVICE: March 10, 2023 TIME: 8:45 AM PATIENT IDENTITY VERIFICATION COMPLETED USING TWO (2) IDENTIFIERS: Name and Date of confirmed by patient verbally. FALL SCREENING: Has the patient had 2 falls in the last year or 1 fall with injury or currently using an Ambulatory Assistive Device (Walker, Cane, Wheelchair, Crutches, etc.)? No PATIENT GENDER DATA: Female. status: : No status: NO. PATIENT RELEVANT IMPLANT DATA REVIEWED: Not Applicable RADIOLOGY DEPARTMENT: CT; Exam(s) Completed: Chest Abdomen Pelvis With IV and Oral contrast PERIPHERAL IV DATA: Site assessment: Clean,Dry and Intact, Site disposition Discontinued SIGNED BY: RT Kumar(R) March 10, 2023 8:45 AM [facility] 03-10-2023 Note HNO ID: [id number] Author: Shirin Salvador RN Service: ? Author Type: Registered Nurse Type: Progress Notes Filed: 03/10/2023 8:40 AM Note Text: Radiology Service Progress Note DATE OF SERVICE: March 10, 2023 TIME: 8:39 AM PATIENT WEIGHT: 122 LBS PATIENT IDENTITY VERIFICATION COMPLETED USING TWO (2) STANDARD IDENTIFIERS: Name and Date of confirmed by patient verbally. FALL SCREENING: Has the patient had 2 falls in the last year or 1 fall with injury or currently using an Ambulatory Assistive Device (Walker, Cane, Wheelchair, Crutches, etc.)? No PATIENT GENDER DATA: Female. status: : No status: NO. ALLERGIES: Reviewed and unchanged CONTRAST ALLERGY: No EXAM: CT -CONTRAST INDUCED NEPHROPATHY RISK FACTORS: Patient age > 60 years CREATININE: Creatinine Date Value Ref Range Status 03/10/2023 0.76 0.58 - 0.96 mg/dL Final 11/11/2022 0.73 0.58 - 0.96 mg/dL Final 11/04/2022 0.72 0.58 - 0.96 mg/dL Final Estimated Glomerular Filtration Rate Date Value Ref Range Status 03/10/2023 86 >=60 mL/min/1.73m? Final Comment: Estimated Glomerular Filtration Rate (eGFR) is calculated using the 2020 CKD-EPI creatinine equation. This equation utilizes serum creatinine, sex, and age as parameters. The creatinine assay has traceable calibration to isotope dilution-mass spectrometry. Refer to KDIGO guidelines for clinical interpretation. In patients with unstable renal function, e.g. those with acute kidney injury, the eGFR may not accurately reflect actual GFR. eGFR- Date Value Ref Range Status 11/28/2021 >60 Final P.O.C.T. RESULTS: POC done: Yes, See Lab Tab March 10, 2023 TREATMENT: No Hydration needed. IV SITE: Ambulatory: A peripheral IV was started in the Right antecubital site with a Angio cath: 20 gauge. IV SITE APPEARANCE: Clean,Dry and Intact SIGNATURE: Shirin Salvador RN PATIENT NAME: Swathi Valladares DATE: March 10, 2023 TIME: 8:39 AM [facility] 03-10-2023 History of Present illness Narrative Summary: [id number] [id number] Informed Consent CASE [id number] ([id number]): Tissue and Body Fluid Analysis from Patients with Cancer and Other Risk- Associated Lesions Patient seen in clinic for informed consent of the above mentioned protocol. Patient agrees to participate in the above mentioned research study. The patient has signed a copy of the informed consent. Patient has contact information for the study team and Dr. Eric Sol M.D. See consent note in Epic. Radha Negrete MSN, RN Clinical Research Nurse documented in this encounter [facility] 11-19-2022 Miscellaneous Notes Thank you Addended by: ERIC SOL on: 11/19/2022 10:45 AM Modules accepted: Orders Addended by: MARK THORNTON on: 11/19/2022 10:06 AM Modules accepted: Orders Call placed to pt. No answer. Left message informing pt of results and to return call if any questions/concerns. PILO: Labs pending for next appt. Mark Thornton RN PILO: Please review labs and advise. Mark Thornton RN Per provider note patient is to be called with Myeloma lab results that were drawn today Pippa Fine RN Please call patient withy Myeloma labs documented in this encounter [facility] 11-11-2022 Instructions Eric Sol MD - 11/11/2022 11:[address] CAP in 4 months - labs same day. RTC after to review Draw myeloma labs today Mark please call results. documented in this encounter [facility] 11-11-2022 History of Present illness Narrative Images from the original note were not included. 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 Tissue quantity was insufficient for mutational analysis. She got neoadjuvant imatinib 400 mg daily. Now resected. 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 Remains low risk (3.6% rate of recurrence) despite size of tumor. 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 Anemia: improved. 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 She is also following with dermatology for vasculitis. The edema resolved after the prednisone taper, likely reflecting an immune or inflammatory component. She is now on hydroxychloroquine. Continue follow ups with dermatology and rheumatology. PLAN: CT CAP in 4 months - labs same day. RTC after to review Draw myeloma labs today for elevated protein level Mark please call results. Replace B12 SL OTC. Patient will follow up with Dr. Judd as needed (Have discussed with him) HPI: CASE HISTORY: Reverse chronological order 11/04/2022 - CT CAP: Chronic changes in the lungs otherwise no evidence of recurrence on chest or abdominal/pelvic series. 07/24/2022 - CT CAP: no evidence of metastatic disease. Mild prominence of intra/extra hepatic bile ducts - no mass. 04/24/2022 - ex-Lap, distal karsten-gastrectomy, Billroth I recon, GIST 9.5 cm, 3 mitoses per 5 mm2 - T3 N0 C-kit, PDGFR, and BRAF wild-type, low risk disease. SDHB deficiency, NTRK (-) 04/16/2022 - CT CAP - stable thoracic LN, and pulmonary nodules; unchanged exophytic heterogeneously enhancing gastric mass., 1.1 cm right renal complex cycst - new. January 29, 2022 CT chest abdomen pelvis with stable gastric mass and borderline chest adenopathy December 19, 2021 started imatinib 400 mg daily November 27, 2021 CT chest negative for thoracic spread. PET scan showed heterogeneous uptake in the known GIST and a focus of uptake in the right hemipelvis may be secondary to ureteral and/or janice uptake. Follow up CT abdomen pelvis on December 07, 2021 was without any pelvic adenopathy. November 15, 2021 tumor board recommendations were to do a CT chest to complete staging. There was a concern for for a paraaortic node that needed for be evaluated by a PET November 07, 2021 EGD EUS (Dr. Cuello) notable for gastric tumor on the lesser curvature; cytology showed a spindle cell neoplasm consistent with GIST (positive staining for CD117 and Dog 1, negative for desmin) August 17, 2021 CT chest abdomen pelvis notable for large heterogeneous mass in the left abdomen measuring 7.6 x 6.1 x 10.8 cm, nonspecific groundglass opacities in lungs and borderline enlarged mediastinal nodes Presented initially with worsening dyspnea in the setting of restenosis of a previously placed aortic valve. Got CT scans as a part of the evaluation prior to TAVR Updated Visit, November 11, 2022: Doing well - Lupus seems to have resolved following resection of GIST. Still fatigued a lot which is unusual for her. T. Protein is elevated and will have additional labs drawn today. CT is reviewed without evidence of recurrence. Updated Visit, August 01, 2022: Swathi comes back - she is overwhelmed and gt her appointments mixed up. Review of her sans indicate no recurrence or distant mets. She remains malnourished but is trying. Will coordinate future follow up with Dr. Judd. Overall, she feels well. Updated Visit, May 22, 2022: Swathi comes back for follow-up. Since last visit, she has been resected and is recovering. She is transitioning her care to ma. Reviewed labs, procedures and pathology. We discussed staging and risk. NCCN rec's as well. I don't think she has clear benefit to the continued use of Imatinib. ROS is negative except that mentioned in HPI PAST MEDICAL SURGICAL FAMILY AND SOCIAL HISTORY: She has a history of -Prosthetic aortic valve for bicuspid aortic stenosis, complicated by restenosis, status post TAVR -Mitral valve prolapse -On chronic anticoagulation -Anemia, normocytic, either malignancy related versus autoimmune (positive LÁZARO and SSB) -Vocal cord nodule, resected, complicated by paralysis of right vocal cord -Gastroesophageal reflux -Chronic cough and dyspnea -Sjogren's hypocomplementemia Previous surgeries include aortic valve replacement, TAVR, sling operation for stress incontinence and resection of vocal cord nodule. Family history significant for liver cancer in father. No substance abuse. MEDICATIONS AND ALLERGIES: Reviewed PHYSICAL EXAM BP 158/88 Pulse 60 Temp 36.2 C (97.1 F) (Temporal) Resp 16 Ht 160 cm (5' 2.99 ) Wt 57.1 kg (125 lb 12.8 oz) SpO2 99% BMI 22.29 kg/m PS - 1, Head atraumatic, no pallor, icterus or lymphadenopathy, lungs clear to auscultation, heart sounds with a systolic murmur, abdomen with a firm mass in the central portion that is non-tender, extremities with vasculitic rash on shins, alert and oriented x3, power 5/5 in all extremities, no nystagmus, cranial nerves intact LABORATORY, IMAGING AND PATHOLOGY WBC (k/uL) Date Value 11/11/2022 3.73 RBC (m/uL) Date Value 11/11/2022 4.43 Hemoglobin (g/dL) Date Value 11/11/2022 13.3 Hematocrit (%) Date Value 11/11/2022 40.7 MCV (fL) Date Value 11/11/2022 91.9 MCH (pg) Date Value 11/11/2022 30.0 MCHC (g/dL) Date Value 11/11/2022 32.7 RDW-CV (%) Date Value 11/11/2022 12.6 Platelet Count (k/uL) Date Value 11/11/2022 198 MPV (fL) Date Value 11/11/2022 8.8 (L) Glucose (mg/dL) Date Value 11/11/2022 91 BUN (mg/dL) Date Value 11/11/2022 17 Creatinine (mg/dL) Date Value 11/11/2022 0.73 Sodium (mmol/L) Date Value 11/11/2022 135 (L) Potassium (mmol/L) Date Value 11/11/2022 4.3 Chloride (mmol/L) Date Value 11/11/2022 102 CO2 (mmol/L) Date Value 11/11/2022 26 Protein, Total (g/dL) Date Value 11/11/2022 8.9 (H) Albumin (g/dL) Date Value 11/11/2022 4.3 Calcium, Total (mg/dL) Date Value 11/11/2022 9.9 Alkaline Phosphatase (U/L) Date Value 11/11/2022 113 Bilirubin, Total (mg/dL) Date Value 11/11/2022 0.4 AST (U/L) Date Value 11/11/2022 24 ALT (U/L) Date Value 11/11/2022 17 Cholesterol, Total (mg/dL) Date Value 08/21/2022 132 Triglyceride (mg/dL) Date Value 08/21/2022 51 Skin biopsy results reviewed I spent a total of 30 minutes on the date of the service which included preparing to see the patient, [id number] patient care, completing clinical documentation, obtaining and/or reviewing separately obtained history, performing a medically appropriate examination, counseling and educating the patient/family/caregiver, ordering medications, tests, or procedures, independently interpreting results (not separately reported) and communicating results to the patient/family/caregiver. Eric Sol MD, CPE Hematology and Oncology Services Provided at: [facility], [place], [place] Vivi Liao (PCP), Cholo Smith (GI), Toña Garcia (cards), Kassie Ocnonor (rheum) documented in this encounter [facility] 10-04-2022 Miscellaneous Notes Linked order Thank you Adriana Patient is scheduled for CT Abd/Pel for 11/04/22. Per last office note on 08/01/22 patient is also to have CT Chest repeated. Pended order for you to sign if needed. Thank you Adriana Bautista RN documented in this encounter [facility] 08-22-2022 History of Present illness Narrative Assessment Follow up Postoperative Visit HPI: Swathi Valladares is a 67 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 She returns today for follow up to review recent lab work. She is currently followed by her Outreach Nurse Dr Sol. PATHOLOGY: T3N0 FINAL DIAGNOSIS A. Celiac artery lymph node, excision: - One lymph node, negative for malignancy (0/1). B. 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 - Six lymph nodes, negative for malignancy (0/6). - Acute erosive gastritis with reactive gastropathy. C. Duodenal staple line , excision: - Segment of duodenum with no diagnostic abnormality. D. Gastric staple line , excision: - Segment of gastric body/fundus with no diagnostic abnormality. Reviewed with patient Component Latest Ref Rng & Units 08/21/2022 WBC 3.70 - 11.00 k/uL 3.50 (L) RBC 3.90 - 5.20 m/uL 4.61 Hemoglobin 11.5 - 15.5 g/dL 13.7 Hematocrit 36.0 - 46.0 % 41.5 MCV 80.0 - 100.0 fL 90.0 MCH 26.0 - 34.0 pg 29.7 MCHC 30.5 - 36.0 g/dL 33.0 RDW-CV 11.5 - 15.0 % 13.0 Platelet Count 150 - 400 k/uL 208 MPV 9.0 - 12.7 fL 8.8 (L) Neut% % 41.1 Abs Neut (ANC) 1.45 - 7.50 k/uL 1.44 (L) Lymph% % 41.7 Abs Lymph 1.00 - 4.00 k/uL 1.46 Vinton% % 12.6 Abs Vinton <0.87 k/uL 0.44 Eosin% % 3.7 Abs Eosin <0.46 k/uL 0.13 Baso% % 0.6 Abs Baso <0.11 k/uL <0.03 Immature Gran % % 0.3 IMMATURE GRANS (ABS) <0.10 k/uL <0.03 NRBC /100 WBC 0.0 Absolute nRBC <0.01 k/uL <0.01 DTYPE Auto Protein, Total 6.3 - 8.0 g/dL 8.2 (H) Albumin 3.9 - 4.9 g/dL 4.0 Calcium 8.5 - 10.2 mg/dL 9.6 Bilirubin, Total 0.2 - 1.3 mg/dL 0.5 Alkaline Phosphatase 34 - 123 U/L 95 AST 13 - 35 U/L 19 ALT 7 - 38 U/L 11 Glucose 74 - 99 mg/dL 91 BUN 7 - 21 mg/dL 18 Creatinine 0.58 - 0.96 mg/dL 0.73 Sodium 136 - 144 mmol/L 139 Potassium 3.7 - 5.1 mmol/L 4.1 Chloride 97 - 105 mmol/L 103 CO2 22 - 30 mmol/L 31 (H) Anion Gap 9 - 18 mmol/L 5 (L) eGFR >=60 mL/min/1.73m 90 Cholesterol, Total <200 mg/dL 132 Triglyceride <150 mg/dL 51 HDL Cholesterol >39 mg/dL 56 Non HDL Cholesterol <130 mg/dL 76 Fasting Time hrs 12 VLDL Cholesterol <30 mg/dL 10 TC:HDL Ratio <5.10 2.36 LDL Cholesterol <100 mg/dL 66 LDL:HDL Ratio <2.54 1.18 Iron 41 - 186 ug/dL 125 TIBC 232 - 386 ug/dL 333 Transferrin Saturation 15.0 - 57.0 % 37.5 Hemoglobin A1C 4.3 - 5.6 % 4.8 Estimated Average Glucose mg/dL 91 Ferritin 14.7 - 205.1 ng/mL 55.7 Folate >4.7 ng/mL >20.0 PTH, Intact 15 - 65 pg/mL 31 TSH 0.270 - 4.200 mIU/L 3.480 Vitamin B12 232 - 1,245 pg/mL 390 Vitamin D 25 Hydroxy 31.0 - 80.0 ng/mL 62.8 Subjective: She c/o recent hypoglycemic symptoms typically around 7-8 pm every evening. 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 She is often not hungry, typically skipping meals. Once she eats and/or drinks juice she feels better. Physical examination: Virtual vist There were no vitals taken for this visit. General: A&O. Pleasant, NAD Impression and plan: Swathi Valladares returned today for follow up to review recent nutritional labs. 1. Symptoms of Hypoglycemia after GI (gastrointestinal) surgery - ICD9: 579.3, ICD10: K91.2 (primary diagnosis) - symptoms resolve with eating/drinking juice - missing meals, not feeling hunger at all may be the cause of her symptoms. - Refer to Endocrinology. - In the meantime, pt will try to avoid skipping meals, recommend eating small snacks during the day, keep glucose/hard candy with her 2. S/P gastrectomy - ICD9: V45.89, ICD10: Z90.3 Her labs did not show any nutritional deficits. Continue daily multivitamin. Follow up: PRN Cailin Howard APRN.FUNNEL SETTER Medical Decision Making: Problems: Low: Stable chronic illness and Acute, uncomplicated illness or injury Risk: Low: Low risk from testing/treatment Medical Decision Making Level: 3 - Low documented in this encounter [facility] 08-09-2022 History of Present illness Narrative AMBULATORY TELEPHONE VISIT Swathi Valladares has consented to this telephone encounter. Persons Present: patient Chief Complaint/Reason: GIST HPI: Patient will follow up with me and Dr. Judd will see her as needed Data Reviewed: plans for follow uup with Dr. 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 Total Time Spent: 3 minutes Eric Sol MD documented in this encounter [facility] 08-08-2022 History of Present illness Narrative Assessment ESTABLISHED PATIENT Swathi Valladares is a 67 year old female with a gastric GIST s/p resection on 04/24/2022. INTERVAL HPI: Quite well postoperatively. States that she feels up quickly otherwise no complaints. ONCOLOGIST: Eric Sol MD SURGERY DETAILS: 1. Exploratory laparotomy. 2. Distal hemigastrectomy. 3. Billroth I reconstruction. PATHOLOGY: T3N0 FINAL DIAGNOSIS A. Celiac artery lymph node, excision: - One lymph node, negative for malignancy (0/1). B. 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 - Six lymph nodes, negative for malignancy (0/6). - Acute erosive gastritis with reactive gastropathy. C. Duodenal staple line , excision: - Segment of duodenum with no diagnostic abnormality. D. Gastric staple line , excision: - Segment of gastric body/fundus with no diagnostic abnormality. PAST MEDICAL HISTORY Active Ambulatory Problems Discharge planning issues Date Noted: 03/12/2018 (aortic stenosis) Date Noted: 03/13/2018 Atelectasis Date Noted: 03/13/2018 Postoperative pain Date Noted: 03/13/2018 Postoperative hypertension Date Noted: 03/15/2018 Fluid overload Date Noted: 03/15/2018 Transition of care performed with sharing of clinical summary Date Noted: 03/16/2018 Tachycardia Date Noted: 03/17/2018 Vocal cord polyp Date Noted: 03/17/2018 Abdominal mass Date Noted: 09/12/2021 Pneumonia due to infectious organism Date Noted: 10/17/2021 Congestive heart failure (HCC) Date Noted: 10/17/2021 Chronic cough Date Noted: 10/17/2021 Diverticulitis Date Noted: 10/17/2021 History of gastrointestinal stromal tumor (GIST) Date Noted: 11/28/2021 Prosthetic aortic valve stenosis Date Noted: 11/28/2021 Severe aortic stenosis Date Noted: 11/29/2021 S/P TAVR (transcatheter aortic valve replacement) Date Noted: 11/29/2021 GERD (gastroesophageal reflux disease) Date Noted: 04/22/2022 CVA (cerebral vascular accident) (HCC) Date Noted: 04/22/2022 COPD (chronic obstructive pulmonary disease) (HCC) Date Noted: 04/22/2022 Lupus (HCC) Date Noted: 04/22/2022 Diarrhea due to malabsorption Date Noted: 05/16/2022 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) Date Noted: 05/22/2022 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 Jeremi LOPEZ OPER STRES INCONTINENCE TAVR/ROMY PERCUT 11/29/2021 Transcatheter Aortic Valve Replacement IMAGING UPDATE: 07/24/2022 CT Chest 1. Stable appearance of bilateral pulmonary nodules. No new or enlarging nodules are visualized. 2. Mediastinal and right hilar adenopathy, overall similar in appearance to prior exam. No new bulky intrathoracic adenopathy is visualized. 07/24/2022 CT A/P 1. Postsurgical changes noted within the stomach. Previously visualized GI stromal tumor is no longer visualized. No definite residual or recurrent disease is noted. 2. No definite findings to suggest abdominal or pelvic metastatic disease. 3. Mildly prominent left para-aortic node, similar to prior exam. 4. New mild prominence of the intrahepatic and extra hepatic bile ducts. No definite obstructing was or mass is visualized. Recommend correlation with LFTs. PHYSICAL EXAMINATION: BP 141/79 (BP Site: Left Arm, BP Position: Sitting, BP Cuff Size: Regular Adult) Pulse 76 Temp 36.1 C (97 F) Ht 160 cm (5' 3 ) Wt 54.4 kg (120 lb) SpO2 96% BMI 21.26 kg/m General Appearance: Well appearing, alert, in no acute distress, well-hydrated, well nourished.. Skin: Skin color, texture, turgor normal, no suspicious rashes or lesions. Abdomen: Normal abdominal exam, Abdomen soft, non-tender. Bowel sounds normal. No masses, organomegaly. IMPRESSION: Gastrointestinal stromal tumor s/p surgical resection PLAN: Doing great Continue follow-up with medical oncology I spent a total of 20 minutes on the date of the service which included [id number] patient care. Arnaldo Judd MD documented in this encounter [facility] 08-08-2022 Nurse Note What is the reason for your visit today? Follow up Who is your referring physician? Are you having poor oral intake? NO Have you had unintentional weight loss of 15 lbs/7 Kg in the last 3-6 months? NO Bowels: regular Wound: Temperature: No Drains: No documented in this encounter [facility] 08-04-2022 Instructions Eric Sol MD - 08/04/2022 7:[address] CAP in 3 months - labs same day. RTC after to review Plan to alternate q [address] Judd. documented in this encounter [facility] 08-01-2022 History of Present illness Narrative Images from the original note were not included. 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 Tissue quantity was insufficient for mutational analysis. She got neoadjuvant imatinib 400 mg daily. Now resected. 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 Remains low risk (3.6% rate of recurrence) despite size of tumor. 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 Remains malnourished post-op. Anemia: improved. She is following rheumatology for suspected Sjogren's disease and hypocomplementemia. She is also following with dermatology for vasculitis. The edema resolved after the prednisone taper, likely reflecting an immune or inflammatory component. She is now on hydroxychloroquine. Continue follow ups with dermatology and rheumatology. PLAN: CT CAP in 3 months - labs same day. RTC after to review Plan to alternate q [address] Judd. HPI: ONCOLOGIC HISTORY AND TREATMENT DETAILS: 07/24/2022 - CT CAP: no evidence of metastatic disease. Mild prominence of intra/extra hepatic bile ducts - no mass. 04/24/2022 - ex-Lap, distal karsten-gastrectomy, Billroth I recon, GIST 9.5 cm, 3 mitoses per 5 mm2 - T3 N0 C-kit, PDGFR, and BRAF wild-type, low risk disease. SDHB deficiency, NTRK (-) 04/16/2022 - CT CAP - stable thoracic LN, and pulmonary nodules; unchanged exophytic heterogeneously enhancing gastric mass., 1.1 cm right renal complex cycst - new. January 29, 2022 CT chest abdomen pelvis with stable gastric mass and borderline chest adenopathy December 19, 2021 started imatinib 400 mg daily November 27, 2021 CT chest negative for thoracic spread. PET scan showed heterogeneous uptake in the known GIST and a focus of uptake in the right hemipelvis may be secondary to ureteral and/or janice uptake. Follow up CT abdomen pelvis on December 07, 2021 was without any pelvic adenopathy. November 15, 2021 tumor board recommendations were to do a CT chest to complete staging. There was a concern for for a paraaortic node that needed for be evaluated by a PET November 07, 2021 EGD EUS (Dr. Cuello) notable for gastric tumor on the lesser curvature; cytology showed a spindle cell neoplasm consistent with GIST (positive staining for CD117 and Dog 1, negative for desmin) August 17, 2021 CT chest abdomen pelvis notable for large heterogeneous mass in the left abdomen measuring 7.6 x 6.1 x 10.8 cm, nonspecific groundglass opacities in lungs and borderline enlarged mediastinal nodes Presented initially with worsening dyspnea in the setting of restenosis of a previously placed aortic valve. Got CT scans as a part of the evaluation prior to TAVR INTERVAL HISTORY: Updated Visit, August 01, 2022: Swathi comes back - she is overwhelmed and gt her appointments mixed up. Review of her sans indicate no recurrence or distant mets. She remains malnourished but is trying. Will coordinate future follow up with Dr. Judd. Overall, she feels well. Updated Visit, May 22, 2022: Swathi comes back for follow-up. Since last visit, she has been resected and is recovering. She is transitioning her care to ma. Reviewed labs, procedures and pathology. We discussed staging and risk. NCCN rec's as well. I don't think she has clear benefit to the continued use of Imatinib. ROS is negative except that mentioned in HPI PAST MEDICAL SURGICAL FAMILY AND SOCIAL HISTORY: She has a history of -Prosthetic aortic valve for bicuspid aortic stenosis, complicated by restenosis, status post TAVR -Mitral valve prolapse -On chronic anticoagulation -Anemia, normocytic, either malignancy related versus autoimmune (positive LÁZARO and SSB) -Vocal cord nodule, resected, complicated by paralysis of right vocal cord -Gastroesophageal reflux -Chronic cough and dyspnea -Sjogren's hypocomplementemia Previous surgeries include aortic valve replacement, TAVR, sling operation for stress incontinence and resection of vocal cord nodule. Family history significant for liver cancer in father. No substance abuse. MEDICATIONS AND ALLERGIES: Reviewed PHYSICAL EXAM BP 134/85 Pulse 71 Temp 36.5 C (97.7 F) (Temporal) Resp 16 Ht 160 cm (5' 2.99 ) Wt 54.9 kg (121 lb) SpO2 98% BMI 21.44 kg/m PS - 1, Head atraumatic, no pallor, icterus or lymphadenopathy, lungs clear to auscultation, heart sounds with a systolic murmur, abdomen with a firm mass in the central portion that is non-tender, extremities with vasculitic rash on shins, alert and oriented x3, power 5/5 in all extremities, no nystagmus, cranial nerves intact LABORATORY, IMAGING AND PATHOLOGY WBC (k/uL) Date Value 07/24/2022 3.66 (L) RBC (m/uL) Date Value 07/24/2022 4.65 Hemoglobin (g/dL) Date Value 07/24/2022 13.9 Hematocrit (%) Date Value 07/24/2022 42.2 MCV (fL) Date Value 07/24/2022 90.8 MCH (pg) Date Value 07/24/2022 29.9 MCHC (g/dL) Date Value 07/24/2022 32.9 RDW-CV (%) Date Value 07/24/2022 13.2 Platelet Count (k/uL) Date Value 07/24/2022 200 MPV (fL) Date Value 07/24/2022 9.4 Glucose (mg/dL) Date Value 07/24/2022 72 (L) BUN (mg/dL) Date Value 07/24/2022 16 Creatinine (mg/dL) Date Value 07/24/2022 0.50 (L) Sodium (mmol/L) Date Value 07/24/2022 141 Potassium (mmol/L) Date Value 07/24/2022 3.1 (L) Chloride (mmol/L) Date Value 07/24/2022 112 (H) CO2 (mmol/L) Date Value 07/24/2022 24 Protein, Total (g/dL) Date Value 07/24/2022 6.2 (L) Albumin (g/dL) Date Value 07/24/2022 2.9 (L) Calcium, Total (mg/dL) Date Value 07/24/2022 7.0 (L) Alkaline Phosphatase (U/L) Date Value 07/24/2022 61 Bilirubin, Total (mg/dL) Date Value 07/24/2022 0.2 AST (U/L) Date Value 07/24/2022 15 ALT (U/L) Date Value 07/24/2022 8 Cholesterol, Total (mg/dL) Date Value 08/05/2002 171 Triglyceride (mg/dL) Date Value 08/05/2002 53 Skin biopsy results reviewed I spent a total of 35 minutes on the date of the service which included preparing to see the patient, [id number] patient care, completing clinical documentation, obtaining and/or reviewing separately obtained history, performing a medically appropriate examination, counseling and educating the patient/family/caregiver, ordering medications, tests, or procedures, independently interpreting results (not separately reported) and communicating results to the patient/family/caregiver. Eric Sol MD, CPE Hematology and Oncology Services Provided at: [facility], [place], [place] Vivi Liao (PCP), Cholo Smith (GI), Toña Garcia (cards), Kassie Oconnor (rheum) documented in this encounter [facility] 06-18-2022 Evaluation note Encounter Date Diagnosis Assessment Notes Jun, Cough (ICD-10 - R05.9) No DI required. Clinical impressions discussed, all questions answered. Start Rx as above and recheck if sx persist, change or fail to resolve. Pt advised to take one tablet daily to avoid upset stomach [facility] Other 08-24-2022 Miscellaneous Notes* Telephone Encounter - Daja Lopez - 05/29/2022 10:17 AM EDT Paperwork and itemized statement mailed to given address. Daja Lopez * Telephone Encounter - Daja Lopez - 05/24/2022 3:25 PM EDT Cancer Claim form completed and signed. Waiting for itemized statement. Daja Lopez [facility] Note* Bonnie Smith MA - 05/23/2022 11:33 AM EDT What is the reason for your visit today? Follow up Who is your referring physician? Are you having poor oral intake? NO Have you had unintentional weight loss of 15 lbs/7 Kg in the last 3-6 months? NO Bowels: diarrhea Wound: Temperature: No Drains: No documented in this encounterMount Carmel [facility] System08-18-2022 History of Present illness Narrative* Arnaldo Judd MD - 05/23/2022 11:30 AM EDT Assessment Postoperative Visit Date of Surgery: 04/24/2022 Surgery: 1. Exploratory laparotomy. 2. Distal hemigastrectomy. 3. Billroth I reconstruction. Post Op Diagnosis: Gastrointestinal stromal tumor. Surgical Pathology: T3N0 FINAL DIAGNOSIS A. Celiac artery lymph node, excision: - One lymph node, negative for malignancy (0/1). B. 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 - Six lymph nodes, negative for malignancy (0/6). - Acute erosive gastritis with reactive gastropathy. C. Duodenal staple line , excision: - Segment of duodenum with no diagnostic abnormality. D. Gastric staple line , excision: - Segment of gastric body/fundus with no diagnostic abnormality. Subjective: Quite well. No complaints during her visit today except diarrhea. She attributes the diarrhea to milk however she does not want to stop having milk. Otherwise appetite is good and maintaining her body weight. We will plan on going back to work on June 21. Physical examination: BP 110/65 Pulse 73 Temp 98.5 Ht 5' 3 (1.60m) Wt 119 lb (54.0kg) SpO2 99% BMI 21.09 kg/(m^2). Abdomen is soft nontender nondistended. Incision is clean dry and intact. Impression and plan: Doing great postoperatively C-kit, PDGFR, and BRAF ittl-ogzr-Voxwcol was stopped Follow-up after her scans in July The patient is able to return to work, on June 21 Without restrictions. I evaluated the patient and personally participated in the hawkins components. I reviewed the RN's, resident's/fellow's note. I agree with the findings and plan. Arnaldo Judd MD documented in this encounterMount Carmel Health System08-17-2022 Instructions* Patient Instructions* Eric Sol MD - 05/22/2022 4:[address] CAP in 2 months - labs same day. 2. RTC after t oreview 3. Stop Imatinib. documented in this encounterMount Carmel Health System08-17-2022 History of Present illness Narrative* Eric Sol MD - 05/22/2022 3:41 PM EDT Images from the original note were not included. 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 Tissue quantity was insufficient for mutational analysis. She is currently on neoadjuvant imatinib 400 mg daily. Side effects include hand cramping which is mild. Interval CT scans show stable disease and she was recommended her to continue imatinib in the masood-adjuvant setting. Patient understood that risk stratification on the surgical specimen may be hampered with the use of neoadjuvant TKI. Now resected. 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 Anemia: This is normocytic and present since 2018. Upon evaluation in December,, haptoglobin was low but detectable, RPI was low, LDH was 221, total bilirubin was 0.5, ferritin was 60 with normal serum iron, TIBC and saturation, B12 was normal, and LÁZARO/SSB antibodies were positive. Stool was negative for occult blood. Low haptoglobin could have been related to recent TAVR procedure. EGD in nd colonoscopy in 2018 did not reveal any obvious cause of bleeding. Recent CT scans did not reveal any abnormality apart from the known gastric GIST. My main differential is chronic inflammation. She is following rheumatology for suspected Sjogren's disease and hypocomplementemia. She is also following with dermatology for vasculitis. The edema resolved after the prednisone taper, likely reflecting an immune or inflammatory component. She is now on hydroxychloroquine. Continue follow ups with dermatology and rheumatology. 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 This is likely secondary to GIST versus a chronic inflammatory disorder. Liver and renal function testing is normal. Pre-syncope: This is a new symptom since last 4 weeks. Neurological examination is normal. I will obtain a CT brain without contrast. If negative, additional testing such as echocardiogram and ENT evaluation might be needed. I have requested her to reach out to Dr. Arroyo to see if this might be related to hydroxychloroquine. PLAN: 1. CT CAP in 2 months - labs same day. 2. RTC after to review 3. Stop Imatinib. HPI: ONCOLOGIC HISTORY AND TREATMENT DETAILS: Presented initially with worsening dyspnea in the setting of restenosis of a previously placed aortic valve. Got CT scans as a part of the evaluation prior to TAVR August 17, 2021 CT chest abdomen pelvis notable for large heterogeneous mass in the left abdomen measuring 7.6 x 6.1 x 10.8 cm, nonspecific groundglass opacities in lungs and borderline enlarged mediastinal nodes November 07, 2021 EGD EUS (Dr. Cuello) notable for gastric tumor on the lesser curvature; cytology showed a spindle cell neoplasm consistent with GIST (positive staining for CD117 and Dog 1, negative for desmin) November 15, 2021 tumor board recommendations were to do a CT chest to complete staging. There was a concern for for a paraaortic node that needed for be evaluated by a PET November 27, 2021 CT chest negative for thoracic spread. PET scan showed heterogeneous uptake in the known GIST and a focus of uptake in the right hemipelvis may be secondary to ureteral and/or nodaluptake. Follow up CT abdomen pelvis on December 07, 2021 was without any pelvic adenopathy. December 19, 2021 started imatinib 400 mg daily January 29, 2022 CT chest abdomen pelvis with stable gastric mass and borderline chest adenopathy 04/16/2022 - CT CAP - stable thoracic LN, and pulmonary nodules; unchanged exophytic heterogeneously enhancing gastric mass., 1.1 cm right renal complex cycst - new. 04/24/2022 - ex-Lap, distal karsten-gastrectomy, Billroth I recon, GIST - T3 N0 C- kit, PDGFR, and BRAFwild-type, low risk disease. Difficult to interpret SDH deficiency - may need further testing., NTRK (-) INTERVAL HISTORY: Updated Visit, May 22, 2022: Swathi comes back for follow-up. Since last visit, she has been resected and is recovering. She is transitioning her care to me. Reviewed labs, procedures and pathology. We discussed staging and risk. NCCN rec's as well. I don't think she has clear benefit to the continued use of Imatinib. ROS is negative except that mentioned in HPI PAST MEDICAL SURGICAL FAMILY AND SOCIAL HISTORY: She has a history of -Prosthetic aortic valve for bicuspid aortic stenosis, complicated by restenosis, status post TAVR -Mitral valve prolapse -On chronic anticoagulation -Anemia, normocytic, either malignancy related versus autoimmune (positive LÁZARO and SSB) -Vocal cord nodule, resected, complicated by paralysis of right vocal cord -Gastroesophageal reflux -Chronic cough and dyspnea -Sjogren's hypocomplementemia Previous surgeries include aortic valve replacement, TAVR, sling operation for stress incontinence and resection of vocal cord nodule. Family history significant for liver cancer in father. No substance abuse. MEDICATIONS AND ALLERGIES: Reviewed PHYSICAL EXAM BP 113/66 Pulse 79 Temp 36.4 C (97.5 F) (Temporal) Resp 16 Ht 160 cm (5' 2.99 ) Wt 54.3 kg (119 lb 9.6 oz) SpO2 99% BMI 21.19 kg/m PS - 0, Head atraumatic, no pallor, icterus or lymphadenopathy, lungs clear to auscultation, heart sounds with a systolic murmur, abdomen with a firm massin the central portion that is non-tender, extremities with vasculitic rash on shins, alert and oriented x3, power 5/5 in all extremities, no nystagmus, cranial nerves intact LABORATORY, IMAGING AND PATHOLOGY WBC (k/uL) Date Value 05/22/2022 7.88 RBC (m/uL) Date Value 05/22/2022 3.56 (L) Hemoglobin (g/dL) Date Value 05/22/2022 10.9 (L) Hematocrit (%) Date Value 05/22/2022 33.8 (L) MCV (fL) Date Value 05/22/2022 94.9 MCH (pg) Date Value 05/22/2022 30.6 MCHC (g/dL) Date Value 05/22/2022 32.2 RDW-CV (%) Date Value 05/22/2022 13.4 Platelet Count (k/uL) Date Value 05/22/2022 255 MPV (fL) Date Value 05/22/2022 8.6 (L) Glucose (mg/dL) Date Value 05/22/2022 122 (H) BUN (mg/dL) Date Value 05/22/2022 25 (H) Creatinine (mg/dL) Date Value 05/22/2022 0.83 Sodium (mmol/L) Date Value 05/22/2022 136 Potassium (mmol/L) Date Value 05/22/2022 4.2 Chloride (mmol/L) Date Value 05/22/2022 104 CO2 (mmol/L) Date Value 05/22/2022 27 Protein, Total (g/dL) Date Value 05/22/2022 7.2 Albumin (g/dL) Date Value 05/22/2022 3.3 (L) Calcium, Total (mg/dL) Date Value 05/22/2022 9.2 Alkaline Phosphatase (U/L) Date Value 05/22/2022 82 Bilirubin, Total (mg/dL) Date Value 05/22/2022 0.2 AST (U/L) Date Value 05/22/2022 13 ALT (U/L) Date Value 05/22/2022 10 Cholesterol, Total (mg/dL) Date Value 08/05/2002 171 Triglyceride (mg/dL) Date Value 08/05/2002 53 Skin biopsy results reviewed I spent a total of 35 minutes on the date of the service which included preparing to see the patient, gdmv-[id number] patient care, completing clinical documentation, obtaining and/or reviewing separately obtained history, performing a medically appropriate examination, counseling and educating the pat ient/family/caregiver, ordering medications, tests, or procedures, independently interpreting results (not separately reported) and communicating results to the patient/family/caregiver. Eric Sol MD, CPE Hematology and Oncology Services Provided at: [facility], [place], [place] Vivi Liao (PCP), Cholo Smith (GI), Toña Garcia (cards), Kassie Oconnor (rheum) documented in this encounterMount Carmel Health System08-11-2022 Instructions* Patient Instructions* Cailin Howard APRN.CNP - 05/16/2022 2:56 PM EDT Change milk to one that is lactose free, try to cut down on the Nestle Quick too. Change gatorade to Gatorade G2 (lower in sugar) Keep to soft diet for now Please stop by the lab and obtain a cup for your stool sample documented in this encounterMount Carmel Health System08-11-2022 Evaluation note* Encounter Date Diagnosis Assessment Notes Treatment Notes Treatment Clinical Notes May, History of gastrointestinal stromal tumor (GIST) (ICD-10 - Z85.09) Pt is 3 weeks post-op from a complicated GI procedure, Patient counseled that she will need immediate workup that we cannot provide at this office. Patient is clinically stable and can be safely transferred to an ER by private care. Patient is instructed TO IMMEDIATELY TO THE NEAREST ER. Low she did not wish to go back to the hospital, I impressed upon her the dire necessity of doing this, particularly with her recent postop status for significant GI surgery.Patient voiced understanding. May, Diarrhea (ICD-10 - R19.7) Patient counseled that they will need immediate further workup that we cannot provide at this office. Patient is clinically stable and can be safely transferred to an ER by private care. Patient is instructed TO IMMEDIATELY TO THE NEAREST ER. Patient voiced understanding. May, Grief reaction (ICD-10 - F43.20) Continues to struggle with ongoing grieving process following the of her several years ago.We discussed her feelings and emotions. May, Aortic valve replace d (ICD-10 - Z95.2) The patient is status post AVR with bioprosthetic valve. 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 Clinically asymptomatic of this at the present time. May, COPD (chronic obstructive pulmonary disease) (ICD-10 - J44.9) Patient has chronic COPD manifested by chronic bronchitis and bronchiectasis.Is under active and continuous care of pulmonology. [facility] Other 08-11-2022 History of Present illness Narrative* Cailin Howard, JACY.FUNNEL SETTER - 05/16/2022 11:29 AM EDT Assessment Postoperative Visit- virtual visit Virtual Visit (Audio/Visual) I have discussed the nature of this visit with the patient which will occur via [facility] (Phone, Virtual Visit) and she agrees to proceed with this interaction . Date of Surgery: 04/24/22 Surgery: 1. Exploratory laparotomy. 2. Distal hemigastrectomy. 3. Billroth I reconstruction. PREOPERATIVE DIAGNOSIS: Gastrointestinal stromal tumor. POSTOPERATIVE DIAGNOSIS: Gastrointestinal stromal tumor. Surgical Pathology: FINAL DIAGNOSIS A. Celiac artery lymph node, excision: - One lymph node, negative for malignancy (0/1). B. 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 - Six lymph nodes, negative for malignancy (0/6). - Acute erosive gastritis with reactive gastropathy. C. Duodenal staple line , excision: - Segment of duodenum with no diagnostic abnormality. D. Gastric staple line , excision: - Segment of gastric body/fundus with no diagnostic abnormality. Subjective: Pt is seen today for request to return to work, she is to c/o persistent diarrhea since about 3 days after surgery. Drinking about a gallon of milk per day with nestle quick, gatorade and some water No fevers, urine is yellow + RLQ abdominal discomfort, pain is not located near her incisions Physical examination: limited due to VV There were no vitals taken for this visit. A&O, pleasant in NAD Respiratory: non labored Impression and plan: Persistent diarrhea and RLQ pain s/p subtotal gastrectomy, billroth I procedure. Diarrhea may be due to the combination of new stomacy anatomy and large amount of milk patient drinks daily, she is not able to breakdown the lactose. Will also rule out C diff infection. - check stool for C diff, if negative Ok to take imodium - Stop lactose containing beverages, OK to change to Lactaid or fairlife milk - cut down on sugar laden beverages - will hold on return to work for now - Keep follow up with Dr Judd next week. Above discussed with Dr Ajay Howard APRN.FUNNEL SETTER documented in this encounterMount Carmel Health System07-30-2022 Hospital Discharge instructions Patient Education 05/04/2022 17:19:44 Abdominal Pain, Adult Abdominal Pain, Adult Pain in the abdomen (abdominal pain) can be caused by many things. Often, abdominal pain is not serious and it gets better with no treatment or by being treated at home. However, sometimes abdominal pain is serious. Your health care provider will ask questions about your medical history and do a physical exam to try to determine the cause of your abdominal pain. Follow these instructions at home: Medicines Take gltz-xix-phvezal and prescription medicines only as told by your health care provider. Do not take a laxative unless told by your health care provider. General instructions Watch your condition for any changes. Drink enough fluid to keep your urine pale yellow. Keep all follow-up visits as told by your health care provider. This is important. Contact a health care provider if: Your abdominal pain changes or gets worse. You are not hungry or you lose weight without trying. You are constipated or have diarrhea for more than 2 3 days. You have pain when you urinate or have a bowel movement. Your abdominal pain wakes you up at night. Your pain gets worse with meals, after eating, or with certain foods. You are vomiting and cannot keep anything down. You have a fever. You have blood in your urine. Get help right away if: Your pain does not go away as soon as your health care provider told you to expect. You cannot stop vomiting. Your pain is only in areas of the abdomen, such as the right side or the left lower portion of the abdomen. Pain on the right side could be caused by appendicitis. You have bloody or black stools, or stools that look like tar. You have severe pain, cramping, or bloating in your abdomen. You have signs of dehydration, such as: ?Dark urine, very little urine, or no urine. ?Cracked lips. ?Dry mouth. ?Sunken eyes. ?Sleepiness. ?Weakness. You have trouble breathing or chest pain. Summary Often, abdominal pain is not serious and it gets better with no treatment or by being treated at home. However, sometimes abdominal pain is serious. Watch your condition for any changes. Take bskb-arg-tiimgks and prescription medicines only as told by your health care provider. Contact a health care provider if your abdominal pain changes or gets worse. Get help right away if you have severe pain, cramping, or bloating in your abdomen. This information is not intended to replace advice given to you by your health care provider. Make sure you discuss any questions you have with your health care provider. Document Released: 07/02/2006 Document Revised: 01/31/2020 Document Reviewed: 01/31/2020 [employer] Patient Education 2020 [employer] Follow Up Care 05/04/2022 13:24:23 With:VIVI LIAO Address: [address] [place], [place] [address] [facility] (1) When:05/07/2022 16:54:50 Comments:Return to the emergency room if your pain gets worse, vomiting, fever or any new symptoms. [facility]07-29-2022 Miscellaneous Notes* Telephone Encounter - Cailin Howard APRN.CNP - 05/03/2022 12:44 PM EDT Returned patients call. She experienced persistent oozing of blood all day yesterday at the site ofher lovenox injection. She is also taking a daily baby aspirin for . Since she is taking a daily aspirin for AVR and is active and ambulatory, will discontinue lovenox. Cailin Howard APRN.CNP * Telephone Encounter - Mira Martins - 05/03/2022 8:39 AM EDT Patient is on Lovenox daily injections for a month, bleeding from site for 17 hours after the injection yesterday. Concerned if this should happen again today, please call her [phone]. documented in this encounterMount Carmel Health System07-28-2022 Miscellaneous Notes* Telephone Encounter - Graham - 05/02/2022 12:41 AM EDT Record ID: [id number] Patient name: Swathi Valladares Date: May 01, 2022 - : Administered by: GRAHAM Protocol: Did you receive your discharge instructions? -> yes Do you have any questions about your discharge instructions? Or do you need clarification on anything? -> no Good! Let's move on. -> undefined Do you have a follow-up appointment scheduled already? -> yes Do you think you'll be able to attend your follow-up appointment? -> yes Do you have any questions about getting or taking your medications? -> no Do you have any new or worsening symptoms? -> no How likely is it that you would recommend [facility] to a friend or family member? -> verylikely Please tell me what you liked best about your hospital experience: -> The Personal from nursing to housekeeping were very friendly and attentive. documented in this encounterMount Carmel Health System07-27-2022 Miscellaneous Notes* Telephone Encounter - Lana Medina - 05/01/2022 4:35 PM EDT Left detailed message on patient's voicemail regarding appointment. Lana Medina * Telephone Encounter - Lana Medina - 04/30/2022 12:20 PM EDT Images from the original note were not included. Patient has been scheduled as MARCELLE w/ Dr. Sol on 05/22. Will contact patient at a later time togive her some time to get home to confirm this appointment. Lana Medina RE: Inpatient Discharge Received: Today MD Rhiannon Noonan, RN; Lana Sememely Schwartz, This patient just got discharged from the hospital. She will need to follow up with us in 3 weeks or so. Transition of care to anyone should be fine. Tiff - I am awaiting her path results. I will give her a call after I get that back. Thanks Av documented in this encounterMount Carmel Health System07-26-2022 Miscellaneous Notes* Telephone Encounter - Rome Barboza MD - 04/30/2022 6:12 PM EDT Surgical pathology noted. I have ordered a GIST NGS panel to inform further treatments (see separate encounter). Treatment effect was noted on the path specimen. 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 She will transition her care to Dr. Sol in May 2022 for adjuvant portion of GIST treatments. Will defer further management and surveillance per Dr. Sol. Rome Barboza MD documented in this encounterMount Carmel Health System07-26-2022 NoteHNO ID: [id number] Author: Lana Winter RN Service: ? Author Type: Registered Nurse Type: Progress Notes Filed: 04/30/2022 10:33 AM Note Text: 0944- Patients k is 3.6, sent page 1034- patient declined K. Said she will eat food with K at home. Notified team. Discussed w/ patient that she will be getting Lovenox at home. 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 Patient initially declined because she thought lovenox was only when she was in the [facility]-2022 NoteHNO ID: [id number] Author: Gustabo Bradley MD Service: General Surgery Author Type: Resident Type: Progress Notes Filed: 04/30/2022 9:42 AM Note Text: SURGERY PROGRESS NOTE Service Date: April 30, 2022 Subjective/Interval HPI: Tolerated a diet yesterday with no issues Pain controlled Drain removed yesterday Physical Exam: BP 142/83 Pulse 75 Temp (Src) 97.9 (Oral) Resp 18 Ht 5' 3 (1.60m) Wt 124 lb (56.2kg) SpO2 100% BMI 21.97 kg/(m2). O2 Therapy: Room Air GENERAL: awake; alert and oriented; no acute distress LUNGS: non-labored breathing, no shortness of breath CARDIAC: warm and well perfused throughout ABDOMEN: soft, appropriately tender, non distended, incisions intact Labs: Hemoglobin (g/dL) Date Value 04/29/2022 11.2 11/28/2021 10.2 Hematocrit (%) Date Value 04/29/2022 33.8 11/28/2021 33.2 WBC (k/uL) Date Value 04/29/2022 5.24 11/28/2021 4.09 Liver Function, Amylase, AND Lipase Recent Labs 04/22/22 0853 03/19/22 0908 02/05/22 0912 01/01/22 0919 03/17/18 0858 03/16/18 0044 03/16/18 0042 03/15/18 2009 03/15/18 1641 03/15/18 0738 TPROT 9.5* 8.9* 9.1* 11.1* < > -- < > -- -- -- ALB 3.9 3.9 3.7* 3.7* < > -- < > -- -- -- ALT 13 14 18 11 < > -- < > -- -- -- AST 26 24 27 25 < > -- < > -- -- -- ALKPHOS 89 100 87 112 < > -- < > -- -- -- TBILI 0.8 0.4 0.6 0.7 < > -- < > -- -- -- LACT -- -- -- -- -- 0.6 -- 0.7 0.7 0.9 < > = values in this interval not displayed. Estee Recent Labs 11/28/21 1320 08/17/21 0956 03/11/18 1005 APTT -- -- 27.1 INR 1.1 1.2 1.0 Intake and Output: Intake/Output Summary (Last 24 hours) at 04/30/2022 0941 Last data filed at 04/29/2022 1838 Gross per 24 hour Intake 983 ml Output ? 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 -bariatric phase IV diet -continue lovenox -plan for discharge today with 30 days of lovenox Gustabo Bradley MD General Surgery PGY 5 For team paging 6AM-6PM during weekdays: [phone] for [place] Team For team paging after 6PM or on weekend / holidays: [phone] for General SurgeryTaunton State [id number] NoteHNO ID: [id number] Author: Kirby Beckwith MD Service: General Surgery Author Type: Resident Type: Progress Notes Filed: 04/29/2022 11:49 AM Note Text: . HEPATOBILIARY SURGERY PROGRESS NOTE Swathi Valladares [id number] ASSESSMENT AND PLAN Swathi Valladares is a 66 year old female with PMHx GIST who is now s/p Resection of gastric tumor with distal gastrectomy and Bilroth 1 reconstruction (04/24/2022). Possible discharge today Follow up in clinic after 2 weeks SUBJECTIVE: - No acute events overnight. - NEELAM with 80 cc of ss output, no leakage around drain - Pain well controlled - Tolerating full fluid diet - Continue carafate and protonix - Bowel Regimen: PRN available Patient Active Hospital Problem List: No active hospital problems. OBJECTIVE: BP 145/92 Pulse 84 Temp 36.7 ?C (98.1 ?F) (Oral) Resp 18 Ht 160 cm (5' 3 ) Wt 56.2 kg (124 lb) SpO2 100% BMI 21.97 kg/m? Body mass index is 21.97 kg/m?. GENERAL: Alert and oriented, no acute distress, cooperative. LUNGS: Non labored breathing ABDOMEN: soft, appropriately tender, non distended. NEELAM in place with ss output WOUND: clean, dry and intact. Labs: CBC, Coags, BMP, Mg, Phos Recent Labs 04/29/22 0455 04/28/22 0634 04/27/22 0649 WBC 5.24 5.25 8.37 HB 11.2* 11.8 12.6 HCT 33.8* 35.5* 38.5 PLT 162 159 153 NA 137 137 135* K 3.5* 3.5* 3.4* CHLOR 98 98 97 CO2 28 27 30 BUN 7 8 9 CREAT 0.58 0.52* 0.54* GLUC 84 63* 86 CA 9.2 8.9 8.6 MG 2.0 1.9 2.2 P 3.2 2.3* 1.9* Liver Function, Amylase, AND Lipase I/O past 24h: Intake/Output Summary (Last 24 hours) at 04/29/2022 0905 Last data filed at 04/28/2022 2040 Gross per 24 hour Intake 1365 ml Output 80 ml Net 1285 ml LDA: Lines, Drains, and Airways Line Peripheral 04/29/22 0307 Left Forearm 22 Gauge <1 day Drain Drain/Tube 04/24/22 1323 Marco Venegas Left Lower Quadrant Flank Drain #1 4 days SURGERY/PROCEDURE: Procedure(s) and Anesthesia Type: * GASTRECTOMY SUBTOTAL - General [facility] General Surgery PGY 1 For team paging 6AM-6PM during weekdays: [phone] for [facility] Team For team paging after 6PM or on weekend / holidays: [phone] for General SurgeryTaunton [facility] [id number] NoteHNO ID: [id number] Author: Arnaldo Judd MD Service: General Surgery Author Type: Physician Type: Progress Notes Filed: 04/28/2022 9:39 AM Note Text: . HEPATOBILIARY SURGERY PROGRESS NOTE Swathi Valladares [id number] ASSESSMENT AND PLAN Swathi Valladares is a 66 year old 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 - Neuro/Pain Control: multimodal pain control, minimize narcotics. Will discontinue VET ASSISTANT today - CV/Pulm: HDS; continue to monitor vitals - FEN/GI: Replete electrolytes PRN. KVO adequate PO intake, discuss advancing to FLD today Continue carafate and protonix - Bowel Regimen: PRN available - Heme: no evidence of bleeding, no indication for transfusion, continue home ASA 81mg - ID: no evidence of infection, no indication for antibiotics - DVT ppx: Lovenox - Encourage IS, OOB - Lines/Drains: NEELAM - Dispo: Recommended home PT/OT. Pending tolerating of diet Plan to be discussed with staff. Cheri Ro MD General Surgery PGY-2 For any questions please contact: [facility] (Drs. Judd, Rubi, Stefano, Awais) [phone] weekdays Or [phone] weeknights (6pm - 6am) and weekends Patient Active Hospital Problem List: No active hospital problems. SUBJECTIVE: No acute events overnight. NEELAM with 80 cc of ss output, no leakage around drain Pain well controlled. No BM or flatus Tolerating clear liquid diet with some nausea which is improved and some bletching, but no vomiting. Wants to advance diet Voiding a lot She endorses no SOB OBJECTIVE: BP 160/90 Pulse 81 Temp 36.7 ?C (98.1 ?F) Resp 18 Ht 160 cm (5' 3 ) Wt 56.2 kg (124 lb) SpO2 95% BMI 21.97 kg/m? Body mass index is 21.97 kg/m?. GENERAL: Alert and oriented, no acute distress, cooperative. LUNGS: Non labored breathing ABDOMEN: soft, appropriately tender, non distended. NEELAM in place with ss output WOUND: clean, dry and intact, midline incision with glue Labs: CBC, Coags, BMP, Mg, Phos Recent Labs 04/27/22 0649 04/26/22 0642 04/25/22 0656 WBC 8.37 9.41 8.55 HB 12.6 11.4* 11.5 HCT 38.5 35.3* 35.6* PLT 153 163 174 NA 135* 135* 135* K 3.4* 3.5* 3.7 CHLOR 97 99 102 CO2 30 25 23 BUN 9 12 10 CREAT 0.54* 0.62 0.67 GLUC 86 110* 105* CA 8.6 8.8 8.8 MG 2.2 1.7 1.6* P 1.9* 2.2* 3.5 Liver Function, Amylase, AND Lipase I/O past 24h: Intake/Output Summary (Last 24 hours) at 04/28/2022 0547 Last data filed at 04/27/2022 211 Gross per 24 hour Intake 1930 ml Output 110 ml Net 1820 ml LDA: Lines, Drains, and Airways Line Peripheral 04/24/22 1058 Left 16 Gauge 3 days Drain Drain/Tube 04/24/22 1323 Marco Venegas Left Lower Quadrant Flank Drain #1 3 days SURGERY/PROCEDURE: Procedure(s) and Anesthesia Type: * GASTRECTOMY SUBTOTAL - GeneralTa[facility] [id number] NoteHNO ID: [id number] Author: Arnaldo Judd MD Service: General Surgery Author Type: Physician Type: Progress Notes Filed: 04/27/2022 11:14 AM Note Text: . 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 - Continue clears - Multimodal pain control - DVT prophylaxis: Lovenox - Ulcer prophylaxis: protonix, carafate - Replete electrolytes as needed Patient Active Hospital Problem List: No active hospital problems. SUBJECTIVE: No acute events overnight. NEELAM with 150 cc (stable) Dai removed. Pain well controlled. No nausea or vomiting. No gas and some burping She endorses no SOB OBJECTIVE: BP 154/92 Pulse 91 Temp 36.6 ?C (97.9 ?F) Resp 18 Ht 160 cm (5' 3 ) Wt 56.2 kg (124 lb) SpO2 98% BMI 21.97 kg/m? Body mass index is 21.97 kg/m?. GENERAL: Alert and oriented, no acute distress, cooperative. LUNGS: Non labored breathing ABDOMEN: soft, appropriately tender, non distended. NEELAM in place WOUND: clean, dry and intact Labs: CBC, Coags, BMP, Mg, Phos Recent Labs 04/26/22 0642 04/25/22 0656 WBC 9.41 8.55 HB 11.4* 11.5 HCT 35.3* 35.6* PLT 163 174 NA 135* 135* K 3.5* 3.7 CHLOR 99 102 CO2 25 23 BUN 12 10 CREAT 0.62 0.67 GLUC 110* 105* CA 8.8 8.8 MG 1.7 1.6* P 2.2* 3.5 Liver Function, Amylase, AND Lipase I/O past 24h: Intake/Output Summary (Last 24 hours) at 04/27/2022 0539 Last data filed at 04/27/2022 0125 Gross per 24 hour Intake 2154 ml Output 1071 ml Net 1083 ml LDA: Lines, Drains, and Airways Line Peripheral 04/24/22 1058 Left 16 Gauge 2 days Drain Drain/Tube 04/24/22 1323 Marco Venegas Left Lower Quadrant Flank Drain #1 2 days SURGERY/PROCEDURE: Procedure(s) and Anesthesia Type: * GASTRECTOMY SUBTOTAL - General Dalila Pickens MD For team paging 6AM-6PM during weekdays: [phone] for [facility] Team For team paging after 6PM or on weekend / holidays: [phone] for General Surgery STAFF NOTE I have independently seen the patient today. I have independently reviewed all the imaging and the labs. I agree with hawkins components of the note above. Care plan and decision making has been discussed. Improving Continue on clear liquid diet Arnaldo Judd MD, MPH, FACS General/[facility] Surgery Pager: [phone] Cell: [phone] April 27, 2022Ta[facility] [id number] NoteHNO ID: [id number] Author: Interface Note Service: ? Author Type: ? Type: Progress Notes Filed: 04/27/2022 3:48 AM Note Text: Epic Scheduled Downtime: 04/27/2022 1:00:00 AM to 04/27/2022 3:43:52 [facility]07-22-2022 NoteHNO ID: [id number] Author: Arnaldo Judd MD Service: General Surgery Author Type: Physician Type: Progress Notes Filed: 04/26/2022 5:43 PM Note Text: . 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 Pain is controlled. No nausea or Vomiting. Drain output in last 24 hours 100 cc. Patient Active Hospital Problem List: No active hospital problems. SUBJECTIVE: No acute events overnight. Pain well controlled. Minimal Nausea improved with PPI Passing flatus OBJECTIVE: BP 155/91 Pulse 109 Temp 36.3 ?C (97.3 ?F) Resp 16 Ht 160 cm (5' 3 ) Wt 56.2 kg (124 lb) SpO2 90% BMI 21.97 kg/m? Body mass index is 21.97 kg/m?. GENERAL: Alert and oriented, no acute distress, cooperative. LUNGS: Non labored breathing ABDOMEN: soft, appropriately tender, non distended. WOUND: clean, dry and intact Labs: CBC, Coags, BMP, Mg, Phos Recent Labs 04/26/22 0642 04/25/22 0656 WBC 9.41 8.55 HB 11.4* 11.5 HCT 35.3* 35.6* PLT 163 174 NA 135* 135* K 3.5* 3.7 CHLOR 99 102 CO2 25 23 BUN 12 10 CREAT 0.62 0.67 GLUC 110* 105* CA 8.8 8.8 MG 1.7 1.6* P 2.2* 3.5 Liver Function, Amylase, AND Lipase I/O past 24h: Intake/Output Summary (Last 24 hours) at 04/26/2022 1610 Last data filed at 04/26/2022 1500 Gross per 24 hour Intake 1687 ml Output 2230 ml Net -543 ml LDA: Lines, Drains, and Airways Line Peripheral 04/24/22 0947 Left Hand 20 Gauge 2 days Peripheral 04/24/22 1058 Left 16 Gauge 2 days Drain Drain/Tube 04/24/22 1323 Marco Venegas Left Lower Quadrant Flank Drain #1 2 days SURGERY/PROCEDURE: Procedure(s) and Anesthesia Type: * GASTRECTOMY SUBTOTAL - General Kirby Beckwith MDTaunton State HospitalOxrddijv36-99-1990 NoteHNO ID: [id number] Author: Arnaldo Judd MD Service: General Surgery Author Type: Physician Type: Progress Notes Filed: 04/25/2022 5:46 PM Note Text: HEPATOBILIARY SURGERY PROGRESS NOTE Swathi Valladares [id number] ASSESSMENT AND PLAN Swathi Valladares is a 66 year old 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 Pain is controlled. No nausea or Vomiting. Drain output in last 24 hours 410 cc. To start sips of water today. @SSYS@ @THS@ Patient Active Hospital Problem List: No active hospital problems. SUBJECTIVE: No acute events overnight. Pain well controlled. No nausea or vomiting. Passing flatus OBJECTIVE: BP 145/82 Pulse 90 Temp 36.7 ?C (98.1 ?F) (Oral) Resp 16 Ht 160 cm (5' 3 ) Wt 56.2 kg (124 lb) SpO2 98% BMI 21.97 kg/m? Body mass index is 21.97 kg/m?. GENERAL: Alert and oriented, no acute distress, cooperative. LUNGS: Non labored breathing ABDOMEN: soft, appropriately tender, non distended. WOUND: clean, dry and intact Labs: CBC, Coags, BMP, Mg, Phos Recent Labs 04/25/22 0656 04/22/22 0853 WBC 8.55 2.88* HB 11.5 12.3 HCT 35.6* 37.7 PLT 174 157 NA -- 138 K -- 4.0 CHLOR -- 103 CO2 -- 27 BUN -- 14 CREAT -- 0.89 GLUC -- 106* CA -- 9.6 Liver Function, Amylase, AND Lipase Recent Labs 04/22/22 0853 TPROT 9.5* ALB 3.9 ALT 13 AST 26 ALKPHOS 89 TBILI 0.8 I/O past 24h: Intake/Output Summary (Last 24 hours) at 04/25/2022 0821 Last data filed at 04/25/2022 0539 Gross per 24 hour Intake 2916 ml Output 2150 ml Net 766 ml LDA: Lines, Drains, and Airways Line Peripheral 04/24/22 0947 Left Hand 20 Gauge <1 day Peripheral 04/24/22 1058 Left 16 Gauge <1 day Drain Drain/Tube 04/24/22 1323 Marco Venegas Left Lower Quadrant Flank Drain #1 <1 day Indwelling Urinary Catheter 04/24/22 1120 Dai 16 Fr <1 day SURGERY/PROCEDURE: Procedure(s) and Anesthesia Type: * GASTRECTOMY SUBTOTAL - GeneralTaunton State [id number] NoteHNO ID: [id number] Author: Aparna Gilbert RN Service: Nursing Author Type: Registered Nurse Type: Progress Notes Filed: 04/24/2022 1:54 PM Note Text: Summary: BP 1351: Dr Nobles aware of SBP a-line in 190s. Cuff SBP 160s. Verbal orders to use cuff pressures for x2 readings. See new orders.[facility] 04-24-20[facility] History of Past illness Narrative* Problem Noted Date Resolved Date 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 Informed Consent Completed: Yes STS Score: 0.923 CAD: No Is intended procedure a CABG: No - is a beta hedy ordered? No - reason: NI H & P completed: Yes PA/LAT: N/A CT: Completed Dr Blood aware of CT scan results and no further consults or tests needed MRI: N/A LE US: N/A Cath: Yes - reviewed: Yes OSH on syngo Echo:Completed EKG: Completed EF %: 59 PI's: N/A Carotid: N/A Mapping: N/A Dental: Completed PFT's: N/A Recent Labs 03/11/18 1028 03/11/18 1005 WBC -- 3.44* HB -- 14.7 HCT -- 45.8 PLT -- 269 INR -- 1.0 CREAT 0.70 0.80 UA: Normal HCG:N/A ABO/ABO Confirmed: Yes Blood ordered: No SA Swab: Yes - results: Pending Last Dose of Anticoagulation: none per patient Op Note: No Pacemaker Check: N/A Implants: no Consults: DM: No Cardiac Surgical prep: N/A patient encouraged to fill out advance directives and take to J1-1 to be scanned SIGNATURE: Ivory Cardoso RN CHECKED BY: [email or web address] DATE of SERVICE: 03/12/2018 TIME of SERVICE: 10:02 AM documented as of this encounter (statuses as of 04/30/2022) [facility]07-20-2022 History of Past illness Narrative* Problem Noted Date Resolved Date 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 Informed Consent Completed: Yes STS Score: 0.923 CAD: No Is intended procedure a CABG: No - is a beta hedy ordered? No - reason: NI H & P completed: Yes PA/LAT: N/A CT: Completed Dr Blood aware of CT scan results and no further consults or tests needed MRI: N/A LE US: N/A Cath: Yes - reviewed: Yes OSH on syngo Echo:Completed EKG: Completed EF %: 59 PI's: N/A Carotid: N/A Mapping: N/A Dental: Completed PFT's: N/A Recent Labs 03/11/18 1028 03/11/18 1005 WBC -- 3.44* HB -- 14.7 HCT -- 45.8 PLT -- 269 INR -- 1.0 CREAT 0.70 0.80 UA: Normal HCG:N/A ABO/ABO Confirmed: Yes Blood ordered: No SA Swab: Yes - results: Pending Last Dose of Anticoagulation: none per patient Op Note: No Pacemaker Check: N/A Implants: no Consults: DM: No Cardiac Surgical prep: N/A patient encouraged to fill out advance directives and take to J1-1 to be scanned SIGNATURE: Ivory Cardoso RN CHECKED BY: [email or web address] DATE of SERVICE: 03/12/2018 TIME of SERVICE: 10:02 AM documented as of this encounter (statuses as of 04/30/2022) [facility]07-20-2022 History of Past illness Narrative* Problem Noted Date Resolved Date 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 Informed Consent Completed: Yes STS Score: 0.923 CAD: No Is intended procedure a CABG: No - is a beta hedy ordered? No - reason: NI H & P completed: Yes PA/LAT: N/A CT: Completed Dr Blood aware of CT scan results and no further consults or tests needed MRI: N/A LE US: N/A Cath: Yes - reviewed: Yes OSH on syngo Echo:Completed EKG: Completed EF %: 59 PI's: N/A Carotid: N/A Mapping: N/A Dental: Completed PFT's: N/A Recent Labs 03/11/18 1028 03/11/18 1005 WBC -- 3.44* HB -- 14.7 HCT -- 45.8 PLT -- 269 INR -- 1.0 CREAT 0.70 0.80 UA: Normal HCG:N/A ABO/ABO Confirmed: Yes Blood ordered: No SA Swab: Yes - results: Pending Last Dose of Anticoagulation: none per patient Op Note: No Pacemaker Check: N/A Implants: no Consults: DM: No Cardiac Surgical prep: N/A patient encouraged to fill out advance directives and take to J1-1 to be scanned SIGNATURE: Ivory Cardoso RN CHECKED BY: [email or web address] DATE of SERVICE: 03/12/2018 TIME of SERVICE: 10:02 AM documented as of this encounter (statuses as of 05/01/2022) [facility]07-20-2022 History of Past illness Narrative* Problem Noted Date Resolved Date 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 Informed Consent Completed: Yes STS Score: 0.923 CAD: No Is intended procedure a CABG: No - is a beta hedy ordered? No - reason: NI H & P completed: Yes PA/LAT: N/A CT: Completed Dr Blood aware of CT scan results and no further consults or tests needed MRI: N/A LE US: N/A Cath: Yes - reviewed: Yes OSH on syngo Echo:Completed EKG: Completed EF %: 59 PI's: N/A Carotid: N/A Mapping: N/A Dental: Completed PFT's: N/A Recent Labs 03/11/18 1028 03/11/18 1005 WBC -- 3.44* HB -- 14.7 HCT -- 45.8 PLT -- 269 INR -- 1.0 CREAT 0.70 0.80 UA: Normal HCG:N/A ABO/ABO Confirmed: Yes Blood ordered: No SA Swab: Yes - results: Pending Last Dose of Anticoagulation: none per patient Op Note: No Pacemaker Check: N/A Implants: no Consults: DM: No Cardiac Surgical prep: N/A patient encouraged to fill out advance directives and take to J1-1 to be scanned SIGNATURE: Ivory Cardoso RN CHECKED BY: [email or web address] DATE of SERVICE: 03/12/2018 TIME of SERVICE: 10:02 AM documented as of this encounter (statuses as of 05/02/2022) [facility]07-20-2022 History of Past illness Narrative* Problem Noted Date Resolved Date 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 Informed Consent Completed: Yes STS Score: 0.923 CAD: No Is intended procedure a CABG: No - is a beta hedy ordered? No - reason: NI H & P completed: Yes PA/LAT: N/A CT: Completed Dr Blood aware of CT scan results and no further consults or tests needed MRI: N/A LE US: N/A Cath: Yes - reviewed: Yes OSH on syngo Echo:Completed EKG: Completed EF %: 59 PI's: N/A Carotid: N/A Mapping: N/A Dental: Completed PFT's: N/A Recent Labs 03/11/18 1028 03/11/18 1005 WBC -- 3.44* HB -- 14.7 HCT -- 45.8 PLT -- 269 INR -- 1.0 CREAT 0.70 0.80 UA: Normal HCG:N/A ABO/ABO Confirmed: Yes Blood ordered: No SA Swab: Yes - results: Pending Last Dose of Anticoagulation: none per patient Op Note: No Pacemaker Check: N/A Implants: no Consults: DM: No Cardiac Surgical prep: N/A patient encouraged to fill out advance directives and take to J1-1 to be scanned SIGNATURE: Ivory Cardoso RN CHECKED BY: [email or web address] DATE of SERVICE: 03/12/2018 TIME of SERVICE: 10:02 AM documented as of this encounter (statuses as of 05/03/2022) [facility]07-20-2022 History of Past illness Narrative* Problem Noted Date Resolved Date 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 Informed Consent Completed: Yes STS Score: 0.923 CAD: No Is intended procedure a CABG: No - is a beta hedy ordered? No - reason: NI H & P completed: Yes PA/LAT: N/A CT: Completed Dr Blood aware of CT scan results and no further consults or tests needed MRI: N/A LE US: N/A Cath: Yes - reviewed: Yes OSH on syngo Echo:Completed EKG: Completed EF %: 59 PI's: N/A Carotid: N/A Mapping: N/A Dental: Completed PFT's: N/A Recent Labs 03/11/18 1028 03/11/18 1005 WBC -- 3.44* HB -- 14.7 HCT -- 45.8 PLT -- 269 INR -- 1.0 CREAT 0.70 0.80 UA: Normal HCG:N/A ABO/ABO Confirmed: Yes Blood ordered: No SA Swab: Yes - results: Pending Last Dose of Anticoagulation: none per patient Op Note: No Pacemaker Check: N/A Implants: no Consults: DM: No Cardiac Surgical prep: N/A patient encouraged to fill out advance directives and take to J1-1 to be scanned SIGNATURE: Ivory Cardoso RN CHECKED BY: [email or web address] DATE of SERVICE: 03/12/2018 TIME of SERVICE: 10:02 AM documented as of this encounter (statuses as of 05/16/2022) [facility]07-20-2022 History of Past illness Narrative* Problem Noted Date Resolved Date 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 Informed Consent Completed: Yes STS Score: 0.923 CAD: No Is intended procedure a CABG: No - is a beta hedy ordered? No - reason: NI H & P completed: Yes PA/LAT: N/A CT: Completed Dr Blood aware of CT scan results and no further consults or tests needed MRI: N/A LE US: N/A Cath: Yes - reviewed: Yes OSH on syngo Echo:Completed EKG: Completed EF %: 59 PI's: N/A Carotid: N/A Mapping: N/A Dental: Completed PFT's: N/A Recent Labs 03/11/18 1028 03/11/18 1005 WBC -- 3.44* HB -- 14.7 HCT -- 45.8 PLT -- 269 INR -- 1.0 CREAT 0.70 0.80 UA: Normal HCG:N/A ABO/ABO Confirmed: Yes Blood ordered: No SA Swab: Yes - results: Pending Last Dose of Anticoagulation: none per patient Op Note: No Pacemaker Check: N/A Implants: no Consults: DM: No Cardiac Surgical prep: N/A patient encouraged to fill out advance directives and take to J1-1 to be scanned SIGNATURE: Ivory Cardoso RN CHECKED BY: [email or web address] DATE of SERVICE: 03/12/2018 TIME of SERVICE: 10:02 AM documented as of this encounter (statuses as of 05/24/2022) [facility]07-20-20[facility] History of Past illness Narrative* Problem Noted Date Resolved Date 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 Informed Consent Completed: Yes STS Score: 0.923 CAD: No Is intended procedure a CABG: No - is a beta hedy ordered? No - reason: NI H & P completed: Yes PA/LAT: N/A CT: Completed Dr Blood aware of CT scan results and no further consults or tests needed MRI: N/A LE US: N/A Cath: Yes - reviewed: Yes OSH on syngo Echo:Completed EKG: Completed EF %: 59 PI's: N/A Carotid: N/A Mapping: N/A Dental: Completed PFT's: N/A Recent Labs 03/11/18 1028 03/11/18 1005 WBC -- 3.44* HB -- 14.7 HCT -- 45.8 PLT -- 269 INR -- 1.0 CREAT 0.70 0.80 UA: Normal HCG:N/A ABO/ABO Confirmed: Yes Blood ordered: No SA Swab: Yes - results: Pending Last Dose of Anticoagulation: none per patient Op Note: No Pacemaker Check: N/A Implants: no Consults: DM: No Cardiac Surgical prep: N/A patient encouraged to fill out advance directives and take to J1-1 to be scanned SIGNATURE: Ivory Cardoso RN CHECKED BY: [email or web address] DATE of SERVICE: 03/12/2018 TIME of SERVICE: 10:02 AM documented as of this encounter (statuses as of 05/28/2022) [facility]07-20-20[facility] History of Past illness Narrative* Problem Noted Date Resolved Date 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 Informed Consent Completed: Yes STS Score: 0.923 CAD: No Is intended procedure a CABG: No - is a beta hedy ordered? No - reason: NI H & P completed: Yes PA/LAT: N/A CT: Completed Dr Blood aware of CT scan results and no further consults or tests needed MRI: N/A LE US: N/A Cath: Yes - reviewed: Yes OSH on syngo Echo:Completed EKG: Completed EF %: 59 PI's: N/A Carotid: N/A Mapping: N/A Dental: Completed PFT's: N/A Recent Labs 03/11/18 1028 03/11/18 1005 WBC -- 3.44* HB -- 14.7 HCT -- 45.8 PLT -- 269 INR -- 1.0 CREAT 0.70 0.80 UA: Normal HCG:N/A ABO/ABO Confirmed: Yes Blood ordered: No SA Swab: Yes - results: Pending Last Dose of Anticoagulation: none per patient Op Note: No Pacemaker Check: N/A Implants: no Consults: DM: No Cardiac Surgical prep: N/A patient encouraged to fill out advance directives and take to J1-1 to be scanned SIGNATURE: Ivory Cardoso RN CHECKED BY: [email or web address] DATE of SERVICE: 03/12/2018 TIME of SERVICE: 10:02 AM documented as of this encounter (statuses as of 05/29/2022) [facility]07-20-2022 History of Past illness Narrative* Problem Noted Date Resolved Date 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 Informed Consent Completed: Yes STS Score: 0.923 CAD: No Is intended procedure a CABG: No - is a beta hedy ordered? No - reason: NI H & P completed: Yes PA/LAT: N/A CT: Completed Dr Blood aware of CT scan results and no further consults or tests needed MRI: N/A LE US: N/A Cath: Yes - reviewed: Yes OSH on syngo Echo:Completed EKG: Completed EF %: 59 PI's: N/A Carotid: N/A Mapping: N/A Dental: Completed PFT's: N/A Recent Labs 03/11/18 1028 03/11/18 1005 WBC -- 3.44* HB -- 14.7 HCT -- 45.8 PLT -- 269 INR -- 1.0 CREAT 0.70 0.80 UA: Normal HCG:N/A ABO/ABO Confirmed: Yes Blood ordered: No SA Swab: Yes - results: Pending Last Dose of Anticoagulation: none per patient Op Note: No Pacemaker Check: N/A Implants: no Consults: DM: No Cardiac Surgical prep: N/A patient encouraged to fill out advance directives and take to J1-1 to be scanned SIGNATURE: Ivory Cardoso RN CHECKED BY: [email or web address] DATE of SERVICE: 03/12/2018 TIME of SERVICE: 10:02 AM documented as of this encounter (statuses as of 08/04/2022) [facility]07-20-2022 History of Past illness Narrative* Problem Noted Date Resolved Date 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 Informed Consent Completed: Yes STS Score: 0.923 CAD: No Is intended procedure a CABG: No - is a beta hedy ordered? No - reason: NI H & P completed: Yes PA/LAT: N/A CT: Completed Dr Blood aware of CT scan results and no further consults or tests needed MRI: N/A LE US: N/A Cath: Yes - reviewed: Yes OSH on syngo Echo:Completed EKG: Completed EF %: 59 PI's: N/A Carotid: N/A Mapping: N/A Dental: Completed PFT's: N/A Recent Labs 03/11/18 1028 03/11/18 1005 WBC -- 3.44* HB -- 14.7 HCT -- 45.8 PLT -- 269 INR -- 1.0 CREAT 0.70 0.80 UA: Normal HCG:N/A ABO/ABO Confirmed: Yes Blood ordered: No SA Swab: Yes - results: Pending Last Dose of Anticoagulation: none per patient Op Note: No Pacemaker Check: N/A Implants: no Consults: DM: No Cardiac Surgical prep: N/A patient encouraged to fill out advance directives and take to J1-1 to be scanned SIGNATURE: Ivory Cardoso RN CHECKED BY: [email or web address] DATE of SERVICE: 03/12/2018 TIME of SERVICE: 10:02 AM documented as of this encounter (statuses as of 08/09/2022) [facility]22 History of Past illness Narrative* Problem Noted Date Resolved Date 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 Informed Consent Completed: Yes STS Score: 0.923 CAD: No Is intended procedure a CABG: No - is a beta hedy ordered? No - reason: NI H & P completed: Yes PA/LAT: N/A CT: Completed Dr Blood aware of CT scan results and no further consults or tests needed MRI: N/A LE US: N/A Cath: Yes - reviewed: Yes OSH on syngo Echo:Completed EKG: Completed EF %: 59 PI's: N/A Carotid: N/A Mapping: N/A Dental: Completed PFT's: N/A Recent Labs 03/11/18 1028 03/11/18 1005 WBC -- 3.44* HB -- 14.7 HCT -- 45.8 PLT -- 269 INR -- 1.0 CREAT 0.70 0.80 UA: Normal HCG:N/A ABO/ABO Confirmed: Yes Blood ordered: No SA Swab: Yes - results: Pending Last Dose of Anticoagulation: none per patient Op Note: No Pacemaker Check: N/A Implants: no Consults: DM: No Cardiac Surgical prep: N/A patient encouraged to fill out advance directives and take to J1-1 to be scanned SIGNATURE: Ivory Cardoso RN CHECKED BY: [email or web address] DATE of SERVICE: 03/12/2018 TIME of SERVICE: 10:02 AM documented as of this encounter (statuses as of 08/12/2022) [facility]22 History of Past illness Narrative* Problem Noted Date Resolved Date 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 Informed Consent Completed: Yes STS Score: 0.923 CAD: No Is intended procedure a CABG: No - is a beta hedy ordered? No - reason: NI H & P completed: Yes PA/LAT: N/A CT: Completed Dr Blood aware of CT scan results and no further consults or tests needed MRI: N/A LE US: N/A Cath: Yes - reviewed: Yes OSH on syngo Echo:Completed EKG: Completed EF %: 59 PI's: N/A Carotid: N/A Mapping: N/A Dental: Completed PFT's: N/A Recent Labs 03/11/18 1028 03/11/18 1005 WBC -- 3.44* HB -- 14.7 HCT -- 45.8 PLT -- 269 INR -- 1.0 CREAT 0.70 0.80 UA: Normal HCG:N/A ABO/ABO Confirmed: Yes Blood ordered: No SA Swab: Yes - results: Pending Last Dose of Anticoagulation: none per patient Op Note: No Pacemaker Check: N/A Implants: no Consults: DM: No Cardiac Surgical prep: N/A patient encouraged to fill out advance directives and take to J1-1 to be scanned SIGNATURE: Ivory Cardoso RN CHECKED BY: [email or web address] DATE of SERVICE: 03/12/2018 TIME of SERVICE: 10:02 AM documented as of this encounter (statuses as of 08/22/2022) [facility]22 History of Past illness Narrative* Problem Noted Date Resolved Date 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 Informed Consent Completed: Yes STS Score: 0.923 CAD: No Is intended procedure a CABG: No - is a beta hedy ordered? No - reason: NI H & P completed: Yes PA/LAT: N/A CT: Completed Dr Blood aware of CT scan results and no further consults or tests needed MRI: N/A LE US: N/A Cath: Yes - reviewed: Yes OSH on syngo Echo:Completed EKG: Completed EF %: 59 PI's: N/A Carotid: N/A Mapping: N/A Dental: Completed PFT's: N/A Recent Labs 03/11/18 1028 03/11/18 1005 WBC -- 3.44* HB -- 14.7 HCT -- 45.8 PLT -- 269 INR -- 1.0 CREAT 0.70 0.80 UA: Normal HCG:N/A ABO/ABO Confirmed: Yes Blood ordered: No SA Swab: Yes - results: Pending Last Dose of Anticoagulation: none per patient Op Note: No Pacemaker Check: N/A Implants: no Consults: DM: No Cardiac Surgical prep: N/A patient encouraged to fill out advance directives and take to J1-1 to be scanned SIGNATURE: Ivory Cardoso RN CHECKED BY: [email or web address] DATE of SERVICE: 03/12/2018 TIME of SERVICE: 10:02 AM documented as of this encounter (statuses as of 08/28/2022) [facility]2022 History of Past illness Narrative* Problem Noted Date Resolved Date 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 Informed Consent Completed: Yes STS Score: 0.923 CAD: No Is intended procedure a CABG: No - is a beta hedy ordered? No - reason: NI H & P completed: Yes PA/LAT: N/A CT: Completed Dr Blood aware of CT scan results and no further consults or tests needed MRI: N/A LE US: N/A Cath: Yes - reviewed: Yes OSH on syngo Echo:Completed EKG: Completed EF %: 59 PI's: N/A Carotid: N/A Mapping: N/A Dental: Completed PFT's: N/A Recent Labs 03/11/18 1028 03/11/18 1005 WBC -- 3.44* HB -- 14.7 HCT -- 45.8 PLT -- 269 INR -- 1.0 CREAT 0.70 0.80 UA: Normal HCG:N/A ABO/ABO Confirmed: Yes Blood ordered: No SA Swab: Yes - results: Pending Last Dose of Anticoagulation: none per patient Op Note: No Pacemaker Check: N/A Implants: no Consults: DM: No Cardiac Surgical prep: N/A patient encouraged to fill out advance directives and take to J1-1 to be scanned SIGNATURE: Ivory Cardoso RN CHECKED BY: [email or web address] DATE of SERVICE: 03/12/2018 TIME of SERVICE: 10:02 AM documented as of this encounter (statuses as of 10/09/2022) [facility]22 History of Past illness Narrative* Problem Noted Date Resolved Date 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 Informed Consent Completed: Yes STS Score: 0.923 CAD: No Is intended procedure a CABG: No - is a beta hedy ordered? No - reason: NI H & P completed: Yes PA/LAT: N/A CT: Completed Dr Blood aware of CT scan results and no further consults or tests needed MRI: N/A LE US: N/A Cath: Yes - reviewed: Yes OSH on syngo Echo:Completed EKG: Completed EF %: 59 PI's: N/A Carotid: N/A Mapping: N/A Dental: Completed PFT's: N/A Recent Labs 03/11/18 1028 03/11/18 1005 WBC -- 3.44* HB -- 14.7 HCT -- 45.8 PLT -- 269 INR -- 1.0 CREAT 0.70 0.80 UA: Normal HCG:N/A ABO/ABO Confirmed: Yes Blood ordered: No SA Swab: Yes - results: Pending Last Dose of Anticoagulation: none per patient Op Note: No Pacemaker Check: N/A Implants: no Consults: DM: No Cardiac Surgical prep: N/A patient encouraged to fill out advance directives and take to J1-1 to be scanned SIGNATURE: Ivory Cardoso RN CHECKED BY: [email or web address] DATE of SERVICE: 03/12/2018 TIME of SERVICE: 10:02 AM documented as of this encounter (statuses as of 11/12/2022) [facility]2022 History of Past illness Narrative* Problem Noted Date Resolved Date 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 Informed Consent Completed: Yes STS Score: 0.923 CAD: No Is intended procedure a CABG: No - is a beta hedy ordered? No - reason: NI H & P completed: Yes PA/LAT: N/A CT: Completed Dr Blood aware of CT scan results and no further consults or tests needed MRI: N/A LE US: N/A Cath: Yes - reviewed: Yes OSH on syngo Echo:Completed EKG: Completed EF %: 59 PI's: N/A Carotid: N/A Mapping: N/A Dental: Completed PFT's: N/A Recent Labs 03/11/18 1028 03/11/18 1005 WBC -- 3.44* HB -- 14.7 HCT -- 45.8 PLT -- 269 INR -- 1.0 CREAT 0.70 0.80 UA: Normal HCG:N/A ABO/ABO Confirmed: Yes Blood ordered: No SA Swab: Yes - results: Pending Last Dose of Anticoagulation: none per patient Op Note: No Pacemaker Check: N/A Implants: no Consults: DM: No Cardiac Surgical prep: N/A patient encouraged to fill out advance directives and take to J1-1 to be scanned SIGNATURE: Ivory Cardoso RN CHECKED BY: [email or web address] DATE of SERVICE: 03/12/2018 TIME of SERVICE: 10:02 AM documented as of this encounter (statuses as of 11/19/2022) [facility]2022 History of Past illness Narrative* Problem Noted Date Resolved Date 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 Informed Consent Completed: Yes STS Score: 0.923 CAD: No Is intended procedure a CABG: No - is a beta hedy ordered? No - reason: NI H & P completed: Yes PA/LAT: N/A CT: Completed Dr Blood aware of CT scan results and no further consults or tests needed MRI: N/A LE US: N/A Cath: Yes - reviewed: Yes OSH on syngo Echo:Completed EKG: Completed EF %: 59 PI's: N/A Carotid: N/A Mapping: N/A Dental: Completed PFT's: N/A Recent Labs 03/11/18 1028 03/11/18 1005 WBC -- 3.44* HB -- 14.7 HCT -- 45.8 PLT -- 269 INR -- 1.0 CREAT 0.70 0.80 UA: Normal HCG:N/A ABO/ABO Confirmed: Yes Blood ordered: No SA Swab: Yes - results: Pending Last Dose of Anticoagulation: none per patient Op Note: No Pacemaker Check: N/A Implants: no Consults: DM: No Cardiac Surgical prep: N/A patient encouraged to fill out advance directives and take to J1-1 to be scanned SIGNATURE: Ivory Cardoso RN CHECKED BY: [email or web address] DATE of SERVICE: 03/12/2018 TIME of SERVICE: 10:02 AM documented as of this encounter (statuses as of 03/10/2023) [facility]2022 History of Past illness Narrative* Problem Noted Date Resolved Date 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 Informed Consent Completed: Yes STS Score: 0.923 CAD: No Is intended procedure a CABG: No - is a beta hedy ordered? No - reason: NI H & P completed: Yes PA/LAT: N/A CT: Completed Dr Blood aware of CT scan results and no further consults or tests needed MRI: N/A LE US: N/A Cath: Yes - reviewed: Yes OSH on syngo Echo:Completed EKG: Completed EF %: 59 PI's: N/A Carotid: N/A Mapping: N/A Dental: Completed PFT's: N/A Recent Labs 03/11/18 1028 03/11/18 1005 WBC -- 3.44* HB -- 14.7 HCT -- 45.8 PLT -- 269 INR -- 1.0 CREAT 0.70 0.80 UA: Normal HCG:N/A ABO/ABO Confirmed: Yes Blood ordered: No SA Swab: Yes - results: Pending Last Dose of Anticoagulation: none per patient Op Note: No Pacemaker Check: N/A Implants: no Consults: DM: No Cardiac Surgical prep: N/A patient encouraged to fill out advance directives and take to J1-1 to be scanned SIGNATURE: Ivory Cardoso RN CHECKED BY: [email or web address] DATE of SERVICE: 03/12/2018 TIME of SERVICE: 10:02 AM documented as of this encounter (statuses as of 03/17/2023) [facility] History of Past illness Narrative* Problem Noted Date Resolved Date 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 Informed Consent Completed: Yes STS Score: 0.923 CAD: No Is intended procedure a CABG: No - is a beta hedy ordered? No - reason: NI H & P completed: Yes PA/LAT: N/A CT: Completed Dr Blood aware of CT scan results and no further consults or tests needed MRI: N/A LE US: N/A Cath: Yes - reviewed: Yes OSH on syngo Echo:Completed EKG: Completed EF %: 59 PI's: N/A Carotid: N/A Mapping: N/A Dental: Completed PFT's: N/A Recent Labs 03/11/18 1028 03/11/18 1005 WBC -- 3.44* HB -- 14.7 HCT -- 45.8 PLT -- 269 INR -- 1.0 CREAT 0.70 0.80 UA: Normal HCG:N/A ABO/ABO Confirmed: Yes Blood ordered: No SA Swab: Yes - results: Pending Last Dose of Anticoagulation: none per patient Op Note: No Pacemaker Check: N/A Implants: no Consults: DM: No Cardiac Surgical prep: N/A patient encouraged to fill out advance directives and take to J1-1 to be scanned SIGNATURE: Ivory Cardoso RN CHECKED BY: [email or web address] DATE of SERVICE: 03/12/2018 TIME of SERVICE: 10:02 AM documented as of this encounter (statuses as of 03/19/2023) [facility] History of Past illness Narrative* Problem Noted Date Diagnosed Date Resolved Date 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 Informed Consent Completed: Yes STS Score: 0.923 CAD: No Is intended procedure a CABG: No - is a beta hedy ordered? No - reason: NI H & P completed: Yes PA/LAT: N/A CT: Completed Dr Blood aware of CT scan results and no further consults or tests needed MRI: N/A LE US: N/A Cath: Yes - reviewed: Yes OSH on syngo Echo:Completed EKG: Completed EF %: 59 PI's: N/A Carotid: N/A Mapping: N/A Dental: Completed PFT's: N/A Recent Labs 03/11/18 1028 03/11/18 1005 WBC -- 3.44* HB -- 14.7 HCT -- 45.8 PLT -- 269 INR -- 1.0 CREAT 0.70 0.80 UA: Normal HCG:N/A ABO/ABO Confirmed: Yes Blood ordered: No SA Swab: Yes - results: Pending Last Dose of Anticoagulation: none per patient Op Note: No Pacemaker Check: N/A Implants: no Consults: DM: No Cardiac Surgical prep: N/A patient encouraged to fill out advance directives and take to J1-1 to be scanned SIGNATURE: Ivory Cardoso RN CHECKED BY: [email or web address] DATE of SERVICE: 03/12/2018 TIME of SERVICE: 10:02 AM documented as of this encounter (statuses as of 06/04/2023) [facility] History of Past illness Narrative* Problem Noted Date Diagnosed Date Resolved Date 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 Informed Consent Completed: Yes STS Score: 0.923 CAD: No Is intended procedure a CABG: No - is a beta hedy ordered? No - reason: NI H & P completed: Yes PA/LAT: N/A CT: Completed Dr Blood aware of CT scan results and no further consults or tests needed MRI: N/A LE US: N/A Cath: Yes - reviewed: Yes OSH on syngo Echo:Completed EKG: Completed EF %: 59 PI's: N/A Carotid: N/A Mapping: N/A Dental: Completed PFT's: N/A Recent Labs 03/11/18 1028 03/11/18 1005 WBC -- 3.44* HB -- 14.7 HCT -- 45.8 PLT -- 269 INR -- 1.0 CREAT 0.70 0.80 UA: Normal HCG:N/A ABO/ABO Confirmed: Yes Blood ordered: No SA Swab: Yes - results: Pending Last Dose of Anticoagulation: none per patient Op Note: No Pacemaker Check: N/A Implants: no Consults: DM: No Cardiac Surgical prep: N/A patient encouraged to fill out advance directives and take to J1-1 to be scanned SIGNATURE: Ivory Cardoso RN CHECKED BY: [email or web address] DATE of SERVICE: 03/12/2018 TIME of SERVICE: 10:02 AM documented as of this encounter (statuses as of 06/18/2023) [facility] History of Past illness Narrative* Problem Noted Date Diagnosed Date Resolved Date 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 Informed Consent Completed: Yes STS Score: 0.923 CAD: No Is intended procedure a CABG: No - is a beta hedy ordered? No - reason: NI H & P completed: Yes PA/LAT: N/A CT: Completed Dr Blood aware of CT scan results and no further consults or tests needed MRI: N/A LE US: N/A Cath: Yes - reviewed: Yes OSH on syngo Echo:Completed EKG: Completed EF %: 59 PI's: N/A Carotid: N/A Mapping: N/A Dental: Completed PFT's: N/A Recent Labs 03/11/18 1028 03/11/18 1005 WBC -- 3.44* HB -- 14.7 HCT -- 45.8 PLT -- 269 INR -- 1.0 CREAT 0.70 0.80 UA: Normal HCG:N/A ABO/ABO Confirmed: Yes Blood ordered: No SA Swab: Yes - results: Pending Last Dose of Anticoagulation: none per patient Op Note: No Pacemaker Check: N/A Implants: no Consults: DM: No Cardiac Surgical prep: N/A patient encouraged to fill out advance directives and take to J1-1 to be scanned SIGNATURE: Ivory Cardoso RN CHECKED BY: [email or web address] DATE of SERVICE: 03/12/2018 TIME of SERVICE: 10:02 AM documented as of this encounter (statuses as of 07/01/2023) [facility] History of Past illness Narrative* Problem Noted Date Diagnosed Date Resolved Date 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 Informed Consent Completed: Yes STS Score: 0.923 CAD: No Is intended procedure a CABG: No - is a beta hedy ordered? No - reason: NI H & P completed: Yes PA/LAT: N/A CT: Completed Dr Blood aware of CT scan results and no further consults or tests needed MRI: N/A LE US: N/A Cath: Yes - reviewed: Yes OSH on syngo Echo:Completed EKG: Completed EF %: 59 PI's: N/A Carotid: N/A Mapping: N/A Dental: Completed PFT's: N/A Recent Labs 03/11/18 1028 03/11/18 1005 WBC -- 3.44* HB -- 14.7 HCT -- 45.8 PLT -- 269 INR -- 1.0 CREAT 0.70 0.80 UA: Normal HCG:N/A ABO/ABO Confirmed: Yes Blood ordered: No SA Swab: Yes - results: Pending Last Dose of Anticoagulation: none per patient Op Note: No Pacemaker Check: N/A Implants: no Consults: DM: No Cardiac Surgical prep: N/A patient encouraged to fill out advance directives and take to J1-1 to be scanned SIGNATURE: Ivory Cardoso RN CHECKED BY: [email or web address] DATE of SERVICE: 03/12/2018 TIME of SERVICE: 10:02 AM documented as of this encounter (statuses as of 07/22/2023) [facility] History of Past illness Narrative* Problem Noted Date Diagnosed Date Resolved Date 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 Informed Consent Completed: Yes STS Score: 0.923 CAD: No Is intended procedure a CABG: No - is a beta hedy ordered? No - reason: NI H & P completed: Yes PA/LAT: N/A CT: Completed Dr Blood aware of CT scan results and no further consults or tests needed MRI: N/A LE US: N/A Cath: Yes - reviewed: Yes OSH on syngo Echo:Completed EKG: Completed EF %: 59 PI's: N/A Carotid: N/A Mapping: N/A Dental: Completed PFT's: N/A Recent Labs 03/11/18 1028 03/11/18 1005 WBC -- 3.44* HB -- 14.7 HCT -- 45.8 PLT -- 269 INR -- 1.0 CREAT 0.70 0.80 UA: Normal HCG:N/A ABO/ABO Confirmed: Yes Blood ordered: No SA Swab: Yes - results: Pending Last Dose of Anticoagulation: none per patient Op Note: No Pacemaker Check: N/A Implants: no Consults: DM: No Cardiac Surgical prep: N/A patient encouraged to fill out advance directives and take to J1-1 to be scanned SIGNATURE: Ivory Cardoso RN CHECKED BY: [email or web address] DATE of SERVICE: 03/12/2018 TIME of SERVICE: 10:02 AM documented as of this encounter (statuses as of 07/31/2023) [facility] History of Past illness Narrative* Problem Noted Date Diagnosed Date Resolved Date 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 Informed Consent Completed: Yes STS Score: 0.923 CAD: No Is intended procedure a CABG: No - is a beta hedy ordered? No - reason: NI H & P completed: Yes PA/LAT: N/A CT: Completed Dr Blood aware of CT scan results and no further consults or tests needed MRI: N/A LE US: N/A Cath: Yes - reviewed: Yes OSH on syngo Echo:Completed EKG: Completed EF %: 59 PI's: N/A Carotid: N/A Mapping: N/A Dental: Completed PFT's: N/A Recent Labs 03/11/18 1028 03/11/18 1005 WBC -- 3.44* HB -- 14.7 HCT -- 45.8 PLT -- 269 INR -- 1.0 CREAT 0.70 0.80 UA: Normal HCG:N/A ABO/ABO Confirmed: Yes Blood ordered: No SA Swab: Yes - results: Pending Last Dose of Anticoagulation: none per patient Op Note: No Pacemaker Check: N/A Implants: no Consults: DM: No Cardiac Surgical prep: N/A patient encouraged to fill out advance directives and take to J1-1 to be scanned SIGNATURE: Ivory Cardoso RN CHECKED BY: [email or web address] DATE of SERVICE: 03/12/2018 TIME of SERVICE: 10:02 AM documented as of this encounter (statuses as of 08/29/2023) [facility] History of Past illness Narrative* Problem Noted Date Diagnosed Date Resolved Date 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 Informed Consent Completed: Yes STS Score: 0.923 CAD: No Is intended procedure a CABG: No - is a beta hedy ordered? No - reason: NI H & P completed: Yes PA/LAT: N/A CT: Completed Dr Blood aware of CT scan results and no further consults or tests needed MRI: N/A LE US: N/A Cath: Yes - reviewed: Yes OSH on syngo Echo:Completed EKG: Completed EF %: 59 PI's: N/A Carotid: N/A Mapping: N/A Dental: Completed PFT's: N/A Recent Labs 03/11/18 1028 03/11/18 1005 WBC -- 3.44* HB -- 14.7 HCT -- 45.8 PLT -- 269 INR -- 1.0 CREAT 0.70 0.80 UA: Normal HCG:N/A ABO/ABO Confirmed: Yes Blood ordered: No SA Swab: Yes - results: Pending Last Dose of Anticoagulation: none per patient Op Note: No Pacemaker Check: N/A Implants: no Consults: DM: No Cardiac Surgical prep: N/A patient encouraged to fill out advance directives and take to J1-1 to be scanned SIGNATURE: Ivory Cardoso RN CHECKED BY: [email or web address] DATE of SERVICE: 03/12/2018 TIME of SERVICE: 10:02 AM documented as of this encounter (statuses as of 09/03/2023) [facility] History of Past illness Narrative* Problem Noted Date Diagnosed Date Resolved Date 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 Informed Consent Completed: Yes STS Score: 0.923 CAD: No Is intended procedure a CABG: No - is a beta hedy ordered? No - reason: NI H & P completed: Yes PA/LAT: N/A CT: Completed Dr Blood aware of CT scan results and no further consults or tests needed MRI: N/A LE US: N/A Cath: Yes - reviewed: Yes OSH on syngo Echo:Completed EKG: Completed EF %: 59 PI's: N/A Carotid: N/A Mapping: N/A Dental: Completed PFT's: N/A Recent Labs 03/11/18 1028 03/11/18 1005 WBC -- 3.44* HB -- 14.7 HCT -- 45.8 PLT -- 269 INR -- 1.0 CREAT 0.70 0.80 UA: Normal HCG:N/A ABO/ABO Confirmed: Yes Blood ordered: No SA Swab: Yes - results: Pending Last Dose of Anticoagulation: none per patient Op Note: No Pacemaker Check: N/A Implants: no Consults: DM: No Cardiac Surgical prep: N/A patient encouraged to fill out advance directives and take to J1-1 to be scanned SIGNATURE: Ivory Cardoso RN CHECKED BY: [email or web address] DATE of SERVICE: 03/12/2018 TIME of SERVICE: 10:02 AM documented as of this encounter (statuses as of 09/19/2023) [facility]-20-[facility]22 History of Past illness Narrative* Problem Noted Date Diagnosed Date Resolved Date 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 Informed Consent Completed: Yes STS Score: 0.923 CAD: No Is intended procedure a CABG: No - is a beta hedy ordered? No - reason: NI H & P completed: Yes PA/LAT: N/A CT: Completed Dr Blood aware of CT scan results and no further consults or tests needed MRI: N/A LE US: N/A Cath: Yes - reviewed: Yes OSH on syngo Echo:Completed EKG: Completed EF %: 59 PI's: N/A Carotid: N/A Mapping: N/A Dental: Completed PFT's: N/A Recent Labs 03/11/18 1028 03/11/18 1005 WBC -- 3.44* HB -- 14.7 HCT -- 45.8 PLT -- 269 INR -- 1.0 CREAT 0.70 0.80 UA: Normal HCG:N/A ABO/ABO Confirmed: Yes Blood ordered: No SA Swab: Yes - results: Pending Last Dose of Anticoagulation: none per patient Op Note: No Pacemaker Check: N/A Implants: no Consults: DM: No Cardiac Surgical prep: N/A patient encouraged to fill out advance directives and take to J1-1 to be scanned SIGNATURE: Ivory Cardoso RN CHECKED BY: [email or web address] DATE of SERVICE: 03/12/2018 TIME of SERVICE: 10:02 AM documented as of this encounter (statuses as of 11/11/2023) [facility] History of Past illness Narrative* Problem Noted Date Diagnosed Date Resolved Date 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 Informed Consent Completed: Yes STS Score: 0.923 CAD: No Is intended procedure a CABG: No - is a beta hedy ordered? No - reason: NI H & P completed: Yes PA/LAT: N/A CT: Completed Dr Blood aware of CT scan results and no further consults or tests needed MRI: N/A LE US: N/A Cath: Yes - reviewed: Yes OSH on syngo Echo:Completed EKG: Completed EF %: 59 PI's: N/A Carotid: N/A Mapping: N/A Dental: Completed PFT's: N/A Recent Labs 03/11/18 1028 03/11/18 1005 WBC -- 3.44* HB -- 14.7 HCT -- 45.8 PLT -- 269 INR -- 1.0 CREAT 0.70 0.80 UA: Normal HCG:N/A ABO/ABO Confirmed: Yes Blood ordered: No SA Swab: Yes - results: Pending Last Dose of Anticoagulation: none per patient Op Note: No Pacemaker Check: N/A Implants: no Consults: DM: No Cardiac Surgical prep: N/A patient encouraged to fill out advance directives and take to J1-1 to be scanned SIGNATURE: Ivory Cardoso RN CHECKED BY: [email or web address] DATE of SERVICE: 03/12/2018 TIME of SERVICE: 10:02 AM documented as of this encounter (statuses as of 11/21/2023) [facility] History of Past illness Narrative* Problem Noted Date Diagnosed Date Resolved Date 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 Informed Consent Completed: Yes STS Score: 0.923 CAD: No Is intended procedure a CABG: No - is a beta hedy ordered? No - reason: NI H & P completed: Yes PA/LAT: N/A CT: Completed Dr Blood aware of CT scan results and no further consults or tests needed MRI: N/A LE US: N/A Cath: Yes - reviewed: Yes OSH on syngo Echo:Completed EKG: Completed EF %: 59 PI's: N/A Carotid: N/A Mapping: N/A Dental: Completed PFT's: N/A Recent Labs 03/11/18 1028 03/11/18 1005 WBC -- 3.44* HB -- 14.7 HCT -- 45.8 PLT -- 269 INR -- 1.0 CREAT 0.70 0.80 UA: Normal HCG:N/A ABO/ABO Confirmed: Yes Blood ordered: No SA Swab: Yes - results: Pending Last Dose of Anticoagulation: none per patient Op Note: No Pacemaker Check: N/A Implants: no Consults: DM: No Cardiac Surgical prep: N/A patient encouraged to fill out advance directives and take to J1-1 to be scanned SIGNATURE: Ivory Cardoso RN CHECKED BY: [email or web address] DATE of SERVICE: 03/12/2018 TIME of SERVICE: 10:02 AM documented as of this encounter (statuses as of 12/19/2023) [facility] History of Past illness Narrative* Problem Noted Date Diagnosed Date Resolved Date 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 Informed Consent Completed: Yes STS Score: 0.923 CAD: No Is intended procedure a CABG: No - is a beta hedy ordered? No - reason: NI H & P completed: Yes PA/LAT: N/A CT: Completed Dr Blood aware of CT scan results and no further consults or tests needed MRI: N/A LE US: N/A Cath: Yes - reviewed: Yes OSH on syngo Echo:Completed EKG: Completed EF %: 59 PI's: N/A Carotid: N/A Mapping: N/A Dental: Completed PFT's: N/A Recent Labs 03/11/18 1028 03/11/18 1005 WBC -- 3.44* HB -- 14.7 HCT -- 45.8 PLT -- 269 INR -- 1.0 CREAT 0.70 0.80 UA: Normal HCG:N/A ABO/ABO Confirmed: Yes Blood ordered: No SA Swab: Yes - results: Pending Last Dose of Anticoagulation: none per patient Op Note: No Pacemaker Check: N/A Implants: no Consults: DM: No Cardiac Surgical prep: N/A patient encouraged to fill out advance directives and take to J1-1 to be scanned SIGNATURE: Ivory Cardoso RN CHECKED BY: [email or web address] DATE of SERVICE: 03/12/2018 TIME of SERVICE: 10:02 AM documented as of this encounter (statuses as of 12/19/2023) [facility] History of Past illness Narrative* Problem Noted Date Diagnosed Date Resolved Date 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 Informed Consent Completed: Yes STS Score: 0.923 CAD: No Is intended procedure a CABG: No - is a beta hedy ordered? No - reason: NI H & P completed: Yes PA/LAT: N/A CT: Completed Dr Blood aware of CT scan results and no further consults or tests needed MRI: N/A LE US: N/A Cath: Yes - reviewed: Yes OSH on syngo Echo:Completed EKG: Completed EF %: 59 PI's: N/A Carotid: N/A Mapping: N/A Dental: Completed PFT's: N/A Recent Labs 03/11/18 1028 03/11/18 1005 WBC -- 3.44* HB -- 14.7 HCT -- 45.8 PLT -- 269 INR -- 1.0 CREAT 0.70 0.80 UA: Normal HCG:N/A ABO/ABO Confirmed: Yes Blood ordered: No SA Swab: Yes - results: Pending Last Dose of Anticoagulation: none per patient Op Note: No Pacemaker Check: N/A Implants: no Consults: DM: No Cardiac Surgical prep: N/A patient encouraged to fill out advance directives and take to J1-1 to be scanned SIGNATURE: Ivory Cardoso RN CHECKED BY: [email or web address] DATE of SERVICE: 03/12/2018 TIME of SERVICE: 10:02 AM documented as of this encounter (statuses as of 12/24/2023) [facility] History of Past illness Narrative* Problem Noted Date Diagnosed Date Resolved Date 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 Informed Consent Completed: Yes STS Score: 0.923 CAD: No Is intended procedure a CABG: No - is a beta hedy ordered? No - reason: NI H & P completed: Yes PA/LAT: N/A CT: Completed Dr Blood aware of CT scan results and no further consults or tests needed MRI: N/A LE US: N/A Cath: Yes - reviewed: Yes OSH on syngo Echo:Completed EKG: Completed EF %: 59 PI's: N/A Carotid: N/A Mapping: N/A Dental: Completed PFT's: N/A Recent Labs 03/11/18 1028 03/11/18 1005 WBC -- 3.44* HB -- 14.7 HCT -- 45.8 PLT -- 269 INR -- 1.0 CREAT 0.70 0.80 UA: Normal HCG:N/A ABO/ABO Confirmed: Yes Blood ordered: No SA Swab: Yes - results: Pending Last Dose of Anticoagulation: none per patient Op Note: No Pacemaker Check: N/A Implants: no Consults: DM: No Cardiac Surgical prep: N/A patient encouraged to fill out advance directives and take to J1-1 to be scanned SIGNATURE: Ivory Cardoso RN CHECKED BY: [email or web address] DATE of SERVICE: 03/12/2018 TIME of SERVICE: 10:02 AM documented as of this encounter (statuses as of 01/12/2024) [facility]-20[facility]2022 NoteHNO ID: [id number] Author: BRADLEY Restrepo Service: Anesthesiology Author Type: Chore Tender Type: Anesthesia Procedure Notes Filed: 04/24/2022 11:28 AM Note Text: ANESTHESIOLOGY PROCEDURE NOTE Airway General Information Procedure Start Time/Medication Administration: 04/24/2022 10:59 AM Patient location during procedure: OR Patient identity confirmed: arm band and patient Staffing Anesthesiologist: Eldon Nobles MD CAA: BRADLEY Restrepo Performed by: CHARLES Indications and Patient Condition Preoxygenated: yes Difficult Mask: No Indications for airway management: anesthesia anesthesia circuit Method: asleep Final Airway Details Final airway type: endotracheal airway Final Endotracheal Airway: ETT Cuffed: yes Successful intubation technique: video laryngoscopy Devices used: Glidescope and intubating stylet Endotracheal tube insertion site: oral Blade size: #3 ETT size (mm): 7.0 Measured from: lips Measurement (cm): 21 Placement verified by: chest auscultation and capnometry Cormack-Lehane Classification: grade I - full view of glottis Number of attempts at approach: 1 Airway not difficult SIGNATURE: BRADLEY Restrepo PATIENT NAME: Swathi Valladares DATE: April 24, 2022 TIME: 11:28 AM CSN: [id number] NoteHNO ID: [id number] Author: BRADLEY Restrepo Service: Anesthesiology Author Type: Chore Tender Type: Anesthesia Procedure Notes Filed: 04/24/2022 11:26 AM Note Text: ANESTHESIOLOGY PROCEDURE NOTE A-Line General Information Procedure Start Time/Medication Administration: 04/24/2022 11:09 AM Patient location during procedure: OR Indication: continuous blood pressure monitoring and blood sampling needed Staffing Anesthesiologist: Eldon Nobles MD Performed by: anesthesiologist Preparation Sterility Preparation: hand hygiene performed prior to procedure, sterile gloves, drapes, and procedure tray, gown used during line insertion, surgical cap used, mask used, sterile drape used during line insertion, skin prep agent completely dried prior to procedure Site Prep: Chloraprep Procedure Details Catheter Size: 20 G Catheter Length: 5.25 in Micropuncture Kit Used: No Guidewire Used: Yes Guidewire Removed Intact: YesLaterality: right Site: radial artery Line Secured: tape, Tegaderm and occlusive biodressing SIGNATURE: BRADLEY Restrepo PATIENT NAME: Swathi Valladares DATE: April 24, 2022 TIME: 11:25 AM CSN: [id number] NoteHNO ID: [id number] Author: BRADLEY Restrepo Service: Anesthesiology Author Type: Chore Tender Type: Anesthesia Procedure Notes Filed: 04/24/2022 11:24 AM Note Text: ANESTHESIOLOGY PROCEDURE NOTE PIV General Information Procedure Start Time/Medication Administration: 04/24/2022 10:58 AM Staffing Anesthesiologist: Eldon Nobles MD Performed by: anesthesiologist Preparation Sterility Preparation: hand hygiene performed prior to procedure, surgical cap used, mask used, sterile drape used during line insertion, skin prep agent completely dried prior to procedure Site Prep: alcohol Procedure Details Indication: need for IV access Needle Size/Type: 16 gauge angiocath Orientation: Left Location: Wrist SIGNATURE: BRADLEY Restrepo PATIENT NAME: Swathi Valladares DATE: April 24, 2022 TIME: 11:24 AM CSN: [id number] Miscellaneous Notes* Telephone Encounter - Mark Minor RN - 04/23/2022 2:35 PM EDT reconciled- patient picked up prescription * Telephone Encounter - Swathi Flannery Pss - 04/23/2022 1:29 PM EDT Patient called regarding pre-operative gastrectomy scheduled for tomorrow and concerns that the Flagyl was not filled - is she still supposed to get this medication return call to [phone] [facility] Instructions* Patient Instructions* Toña Garcia MD - 04/23/2022 11:26 AM EDT See you in December 2022 with an echo Daily baby aspirin documented in this encounter[facility] History of Present illness Narrative* Toña Garcia MD - 04/23/2022 11:09 AM EDT Images from the original note were not included. [facility] [place] [facility] Department of Cardiovascular Medicine SECTION OF INTERVENTIONAL CARDIOLOGY OUTPATIENT VISIT DATE April 23, 2022 OUTPATIENT VISIT TYPE ESTABLISHED PRIMARY CARE PHYSICIAN: Vivi Liao (Carloz) [address] [place] [address] REFERRING PHYSICIAN: Toña Garcia [facility] [address] [facility] [facility] [address] CHIEF COMPLAINT: ROMY VinV 23 mm S3 11/29/2021 HISTORY OF PRESENT ILLNESS: Ms. Valladares is doing extremely well, really no symptoms to report in fact her cough is also gone away following ROMY VinV. She did have some time on Eliquis post procedure and now is on daily aspirinwhich she should maintain daily for life. Echocardiogram today shows the LVEF to be 73%. There is grade 1 diastolic dysfunction. The RVSP is normal. There is 1+ TR and no MR. The peak/mean transaortic gradients are 25/14 mmHg respectively, with a DI of 0.49. ECG today shows sinus rhythm. PAST CARDIAC HISTORY: See HPI PAST MEDICAL HISTORY Diagnosis Date Aortic stenosis Bicuspid aortic valve History of gastrointestinal stromal tumor (GIST) Mitral valve prolapse Prosthetic aortic valve stenosis PAST SURGICAL HISTORY Procedure Laterality Date COLONOSCOPY SCREENING 2018 HYSTERECTOMY LEFT HEART CATH,PERCUTANEOUS PAST SURGICAL HISTORY OF 1980 vocal chord polyp removal, second surgery insert plate SHX AORTIC VALVE REPLACEMENT 2018 #[address] Jeremi LOPEZ OPER STRES INCONTINENCE SOCIAL HISTORY Social History Tobacco Use Smoking status: Never Smoker Smokeless tobacco: Never Used Substance Use Topics Alcohol use: Not Currently Comment: rare Drug use: Never FAMILY HISTORY Problem Relation Age of Onset Hypertension Mother Skin Cancer Mother Cancer Father at 40 from liver cancer COPD Sister Skin Cancer Brother ALLERGIES: ALLERGIES No Known Allergies MEDICATIONS: neomycin 500 mg tablet Take 2 tablets at 6pm, 7pm, and 11pm the day before your surgery hydrOXYchloroQUINE (PLAQUENIL) 200 mg tablet TAKE 1 TABLET BY MOUTH TWICE DAILY WITH FOOD AND YEARLY EYE EXAM imatinib (GLEEVEC) 400 mg tablet Take 1 tablet (400 mg) by mouth once daily. aspirin 81 mg chewable tablet Take 162 mg by mouth once daily. famotidine (PEPCID AC) 20 mg tablet Take 1 tablet by mouth as needed. furosemide (LASIX) 20 mg tablet Take 20 mg by mouth as needed. therapeutic multivitamin (THERA VITAMIN) tablet Take 1 tablet by mouth daily with breakfast. REVIEW OF SYSTEMS: GENERAL: Negative for: Weight loss or gain, Fever or Chills, Weakness and Sleep difficulties. HEENT: Negative for: Headache, Impaired Vision, Glasses, Hearing Impairment, Ringing in Ears, Nosebleeds, Poor dental care, Bleeding Gums, Dentures NECK: Negative for: Swelling, Pain, Stiffness RESPIRATORY: Negative for: Cough, Blood in Sputum, Shortness of breath, Wheezing, Apnea GASTROINTESTINAL: Negative for: Trouble swallowing, Heartburn, Change in bowel habits, Blood in stool, Dark black stools MUSCULOSKELETAL: Negative for: Muscle or joint pain, Stiffness , Joint swelling NEUROLOGIC/PSYCHIATRIC: Negative for: Weakness, Paralysis, Numbness, Tingling, Tremor, Nervousness,Depressed mood, Memory loss SKIN: Negative for: Rashes, Itching HEMATOLOGICAL/LYMPHATIC: Negative for: Easy bruising , Easy bleeding ENDOCRINE: Negative for: Heat or cold intolerance, Excessive sweating, Frequent urination, Frequentthirst PHYSICAL EXAMINATION: There were no vitals taken for this visit. General: Well appearing, in no acute distress, speaking in complete sentences. Skin: No clubbing, no cyanosis. Head/Eyes: Extra ocular movements intact Mouth: Teeth in good repair. Neck: No jugular venous distention, no carotid bruits, carotids have a normal upstroke, no palpablethyromegaly. Lungs: Clear to auscultation and no rales Heart: Regular rhythm, PMI not displaced, S1, S2 normal, no S3, no S4, no heaves, no rub and no murmur. PV Pulses:Pulses intact Abdomen: Soft, nontender, bowel sounds normal, no palpable organomegaly, no bruits. Extremities: No peripheral edema . Grade 2/4 distal pulses bilaterally. Edema Scale: No Musculoskeletal: Normal gait and ambulation Neuro: Oriented to time, place and person CARDIOVASCULAR MEDICINE TESTING: Electrocardiogram: As described above Echocardiogram: As described above I have personally reviewed the Electrocardiogram and Echocardiogram. IMPRESSION: Doing very well clinically post ROMY VinV. Stable gradients and marked improvement in symptoms. PLAN AND RECOMMENDATIONS: She is up for a tumor operation tomorrow and she should still remain on daily aspirin. We will see her back next year in December with follow-up echo. Toña Garcia MD, PhD, FRACP Clinical Staff, Pallet Stone Positioner silverware etcher Director, [facility], [facility] Department of Cardiovascular Medicine [facility] [place] [facility] Desk [facility] [place] [address] Office This letter was dictated using a voice recognition program, please excuse any typos. CONTACT INFORMATION: documented in this encounterMount [facility]el [facility]07-[facility]-2022 History and physical note * Virgie Gar APRN.FUNNEL SETTER - 04/22/2022 8:30 AM EDT HISTORY AND PHYSICAL EXAMINATION SERVICE DATE: 04/22/2022 SERVICE TIME: 8:32 AM PRIMARY CARE PHYSICIAN: Vivi Liao MD REASON FOR VISIT: Swathi Valladares is a 66 year old female who is scheduled for GASTRECTOMY SUBTOTAL at the request of Dr. Arnaldo Judd for consultation. My final recommendation will be communicated back to the requesting physician by way of shared medical record or letter. The patient has the following: ACTIVE PROBLEM LIST Discharge Planning Issues As (Aortic Stenosis) Atelectasis Postoperative Pain Postoperative Hypertension Fluid Overload Transition of Care Performed With Sharing of Clinical Summary Tachycardia Vocal Cord Polyp Abdominal Mass Pneumonia Due to Infectious Organism Congestive Heart Failure (Hcc) Chronic Cough Diverticulitis History of Gastrointestinal Stromal Tumor (Gist) Prosthetic Aortic Valve Stenosis Severe Aortic Stenosis S/P Tavr (Transcatheter Aortic Valve Replacement) Gerd (Gastroesophageal Reflux Disease) Cva (Cerebral Vascular Accident) (Hcc) Copd (Chronic Obstructive Pulmonary Disease) (Hcc) Lupus (Hcc) Subjective CHIEF COMPLAINT: Pre-op exam HPI: This is a 66 year old female that is scheduled for the above procedure. Patient has a history of a gastrointestinal tumor. Patient denies any pain or N/V/D at this time. PAST MEDICAL HISTORY Diagnosis Date Aortic stenosis Bicuspid aortic valve History of gastrointestinal stromal tumor (GIST) Mitral valve prolapse Prosthetic aortic valve stenosis PAST SURGICAL HISTORY Procedure Laterality Date COLONOSCOPY SCREENING 2018 HYSTERECTOMY LEFT HEART CATH,PERCUTANEOUS PAST SURGICAL HISTORY OF 1979 vocal chord polyp removal, second surgery insert plate SHX AORTIC VALVE REPLACEMENT 2018 #[address] Jeremi LOPEZ OPER STRES INCONTINENCE FAMILY HISTORY Problem Relation Age of Onset Hypertension Mother Skin Cancer Mother Cancer Father at 40 from liver cancer COPD Sister Skin Cancer Brother SOCIAL HISTORY: Social History Tobacco Use Smoking status: Never Smoker Smokeless tobacco: Never Used Substance Use Topics Alcohol use: Not Currently Comment: rare Drug use: Never Prior to Admission medications as of 04/22/22 0823 Medication Sig Last Dose Taking neomycin 500 mg tablet Take 2 tablets at 6pm, 7pm, and 11pm the day before your surgery Yes hydrOXYchloroQUINE (PLAQUENIL) 200 mg tablet TAKE 1 TABLET BY MOUTH TWICE DAILY WITH FOOD AND YEARLY EYE EXAM Yes imatinib (GLEEVEC) 400 mg tablet Take 1 tablet (400 mg) by mouth once daily. Yes aspirin 81 mg chewable tablet Take 162 mg by mouth once daily. Yes famotidine (PEPCID AC) 20 mg tablet Take 1 tablet by mouth as needed. Yes furosemide (LASIX) 20 mg tablet Take 20 mg by mouth as needed. Yes therapeutic multivitamin (THERA VITAMIN) tablet Take 1 tablet by mouth daily with breakfast. Yes ALLERGIES No Known Allergies COVID VACCINATION STATUS: Not vaccinated REVIEW OF SYSTEMS: PAIN ASSESSMENT: General: No weight loss, malaise or fevers. Neuro: Postive for Stroke-No residual deficit, Negative for TIA's Headaches Seizures Respiratory: Positive for Mild COPD, Negative for Asthma, Current cough, Home O2 Cardiovascular: Positive for: Valve surgery TAVR 11/2021, Negative for Arrhythmia, Chest Pain, DVT/PE GI: See HPI : No history of dysuria, frequency or incontinence,, stones or chronic kidney disease, No difficulty urinating, nocturia > 1 time per night or hematuria SAMPLE COORDINATOR: Negative for abnormal vaginal bleeding, abnormal vaginal discharge. Endocrine: No history of diabetes. Has not taken steroids within the past 30 days. No history of endocrinological symptoms or problems. Hematology: Chronic anti-coagulation / platelet meds (Aspirin) Oncology: See HPI Psych: No history of psychiatric symptoms or problems. Musculoskeletal: Negative for joint pain or swelling, back pain or muscle pain. Skin: Negative for lesions, rash and itching. Objective PHYSICAL EXAM: VITALS: BP 127/75 Temp (Src) 98.9 (Temporal Artery) Resp 18 Ht 5' 3 (1.60m) Wt 124 lb (56.2kg) SpO2 99% BMI 21.97 kg/(m^2). General: Alert and oriented, No acute distress Skin: Normal color, no rash, no lesions. HEENT: EOM, pupils equal, round and reactive. Cardiovascular: Normal S1 & S2, no rubs, murmurs or gallops. No JVD. Pulse regular. Lungs: Normal breath sounds, no wheezes or crackles. Abdomen: Soft, non-tender, no rigidity., No masses or organomegaly. Extremities: No deformity, no edema or tenderness, no joint swelling or clubbing. Neurological: Normal cognition and motor skills. Gait normal. No weakness or sensory deficit. Pulses: Carotid and radial pulses normal +2. Diagnostic tests reviewed for today's visit: Lab Value Units Date High Low HB 12.9 g/dL 03/19/2022 15.5 11.5 HCT 40.1 % 03/19/2022 46.0 36.0 WBC 3.36 k/uL 03/19/2022 11.00 3.70 PLT 186 k/uL 03/19/2022 400 150 NA 138 mmol/L 03/19/2022 144 136 K 4.0 mmol/L 03/19/2022 5.1 3.7 GLUC 92 mg/dL 03/19/2022 99 74 BUN 11 mg/dL 03/19/2022 21 7 CREAT 0.92 mg/dL 03/19/2022 0.96 0.58 ALT 14 U/L 03/19/2022 38 7 AST 24 U/L 03/19/2022 35 13 TBILI 0.4 mg/dL 03/19/2022 1.3 0.2 Type and screen 04/22/2022 EKG 12/06/21 NORMAL SINUS RHYTHM ANTEROSEPTAL MYOCARDIAL INFARCTION , AGE UNDETERMINED ABNORMAL ECG ECHO 11/29/21 - Exam indication: s/p TAVR - Left ventricular systolic function is normal. EF = 60 5% (visual est.) - The right ventricle is normal in size. Right ventricular systolic function is normal. - The visualized aorta is borderline dilated with a maximal dimension of 3.9 cm. - S/P transcatheter aortic valve replacement. Peterson Ultra prosthetic aortic valve (size #23). There is no aortic valve regurgitation. The peak gradient is 37 mmHg, the mean gradient is 22 mmHg and the dimensionless valve index is 0.41. Aortic valve gradients appear higher than expected. Clinical correlation recommended. - Exam was compared with the prior echocardiographic exam performed on 11/29/2021([facility]). this is a full study. Heart cath 08/20/21 Coronary Anatomy: Right Dominant Injection Site(s): Left Main Coronary Artery and Right Coronary Artery LMT: _ The LMT is normal. Additional Comment: - Bifurcating LM. LAD: _ The LAD has mild luminal irregularities. Additional Comment: - The LAD gives rise to a large-caliber high diagonal vessel prior to wrapping the apex and perfusing the apical inferior wall. LCX: _ The Circumflex has mild luminal irregularities. Additional Comment: - Nondominant LCx that gives rise to 2 OMs prior to cousrsing posteriorly into the AV groove and continuing as an LPLV. RAMUS: _ The Ramus is Absent. RCA: _ The RCA has mild luminal irregularities. Additional Comment: - Dominant RCA that gives rise to two marginal branches prior to coursing posteriorly and giving rise to a large-caliber rPDA, then continuing into rPLV branches. Impression: - No obstructive CAD. Recommended Treatment: Valve repair / replacement. Plan: - Proceed with valve repair or replacement without concomitant revascularization. Spirometry 09/12/21 Spirometry is normal. CXR 11/28/21 No acute disease identified in the lungs or mediastinum. Little interval change since the exam dated 08/17/2021. CT Abd 04/16/22 A 1.1 cm hypodensity within the lower pole of the right kidney has increased in size since 01/29/2022 and is overall indeterminate. Given relatively rapid growth, this likely represents a proteinaceous/hemorrhagic cyst. Consideration could be given to further assessment with renal ultrasound. CT Chest 04/16/22 1. Since 01/29/2022, unchanged mildly enlarged mediastinal and hilar lymph nodes. 2. Unchanged subcentimeter pulmonary nodules measuring up to 0.5 cm. 3. No progressive lymphadenopathy or enlarging suspicious pulmonary nodule. 4. Please refer to concurrently acquired and separately reported abdomen CT for findings related tothe upper abdomen. Assessment/Plan (aortic stenosis) Assessment: last ECHO 11/29/21 - Exam indication: s/p TAVR - Left ventricular systolic function is normal. EF = 60 5% Follows up with cardiology, asymptomatic and stable Congestive heart failure (HCC) Assessment: last ECHO 11/29/21 - Exam indication: s/p TAVR - Left ventricular systolic function is normal. EF = 60 5% Follows up with cardiology, asymptomatic and stable Lasix as needed S/P TAVR (transcatheter aortic valve replacement) Assessment: last ECHO 11/29/21 - Exam indication: s/p TAVR 11/2021 - Left ventricular systolic function is normal. EF = 60 5% Follows up with cardiology, asymptomatic and stable History of gastrointestinal stromal tumor (GIST) Assessment: see HPI GERD (gastroesophageal reflux disease) Assessment: managed with med, stable CVA (cerebral vascular accident) ([facility]) Assessment: Diagnosed as a remote on brain CT 03/22/22 Patient does not know when she had incident. Stable and asymptomatic, no residual effects COPD (chronic obstructive pulmonary disease) (HCC) Assessment: does not require inhalers, follows up with pulmonology Stable Lupus (HCC) Assessment: managed with med, stable METS: Take care of self; that is eating, dressing, bathing, using the toilet (2.75 METs) Walk a block or two on level ground (2.75 METs) Climb a flight of stairs or walk up a hill (5.50 METs) Patient denies any chest pain or undue shortness of breath with the above physical activity. ASA Class: 3 ANESTHESIA FINDINGS: Intubation History: No history of difficult intubation Significant Anesthesia Considerations: None Airway Exam: General: Normal appearance Mallampati Score is CLASS III ULBT: Class II - Lower incisors can bite the upper lip below the keisha line Neck: Normal appearance and function, Distance from hyoid to mentum during neck extension is at least 3 finger breaths Mouth: Normal tongue size and Mouth opening greater than 2 finger breaths Dentition: Intact Airway History: No abnormal airway history Sleep Apnea Probability Snores loudly: No Tired, fatigued or sleepy in daytime: No Stops breathing or choking/gasping during sleep: No High blood pressure: No Sleep Apnea Probability Score 10/17/2021 Sleep Apnea Screen V2 14.87 (Sleep study not recommended) PLAN This patient is optimally prepared for surgery. CONSULTS: Patient does not require consults for optimization at this time. The Following Tests/Procedures Have Been Initiated: Labs not indicated per [facility] protocol, EKG not indicated per [facility] protocol Planned Anesthetic: General Instructions Given to Patient: Instructions located in the after visit summary. Patient given verbal and written preop instructions and voices comprehension and compliance. SIGNATURE: Virgie Gar APRN.CNP PATIENT NAME: Swathi Valladares DATE: April 22, 2022 TIME: 8:32 AM documented in this encounterMount Carmel Health System07-18-2022 Instructions* Patient Instructions* Virgie Gar APRN.CNP - 04/22/2022 8:30 AM EDT PATIENT PREOPERATIVE INSTRUCTIONS Arnaldo Judd MD has scheduled you for your procedure at this surgery center: [facility]: [phone] --[id number] [address]. Please check in on the1st floor at registration desk 6. Please read below carefully for your personalized instructions. Dietary Restrictions: - No solid food after midnight. - You may have 12 ounces of clear liquids (water, clear juices such as apple juice or gatorade, carbonated beverages, clear tea, black coffee, jello) until 2 hours before scheduled arrival at facility. Medications: Unless instructed differently below, stay on all of your medications until your surgery. Approved medications to take the morning of surgery with a sip of water: Plaquenil and pepcid if normally taken in the morning If you start any new medications after today's visit, please contact the surgeon's office. Blood Thinning Medications: - Stop NSAIDS (Ibuprofen, Advil, Aleve, Motrin, Celebrex, Mobic, etc.) 7 days before surgery, as directed by your surgeon. - Do NOT stop aspirin or other anticoagulants without consulting with your licensed chemical spray technician or prescribing physician. - Stop Vitamin E, ALL multi-vitamins, herbals and dietary supplements 7 days before surgery. - You may take Tylenol (Acetaminophen) or any of your pain medications that do not contain aspirin or NSAIDS as needed. Important Reminders: - Candy, mints, and tobacco products are NOT permitted the morning of surgery. - Hearing aids, dentures and glasses may be worn the morning of surgery. - NO jewelry, body piercings, makeup, hairpins or contacts are to be worn the day of surgery. If you develop symptoms such as a fever, cold, or flu, or have other changes to your health within TWO DAYS of scheduled surgery or the morning of surgery, please contact the surgery center above. Personal Belongings: -Please have photo ID and insurance cards. -If you do not have a copy of advance directives on file with us, please bring a copy with you on the day of surgery. - Leave ALL valuables and money at home or with family members. For Outpatient Procedures: - YOU MUST HAVE A RESPONSIBLE SENIOR SOLUTIONS ENGINEER TAKE YOU HOME. A DIRECTOR PAYMENT OR JUNIOR ANALYST CANNOT BE MADE A RESPONSIBLE SENIOR SOLUTIONS ENGINEER. - We recommend that a responsible person stays with you overnight to take care of you. - You cannot stay in a hotel alone after outpatient surgery. You will not be permitted to have yoursurgery, if you do not have someone to take care of you. Arrival Time for Surgery: - The Surgery Center or hospital where you are having surgery will call the afternoon before surgery (or Friday for Friday surgery) with a scheduled arrival time. - If you have not heard by 4 pm, please contact the surgery center above. Please be aware that emergency situations arise, which may delay or change your surgical time. If this happens, we will notify you as soon as possible and regret any inconvenience. If you already have an Advance Directive, please fax a copy to [phone] or email to for it to be added to your chart. If you do not have an Advance Directive, you can find the appropriate form and more information at [email or web address]. We recommend that youcomplete the Advance Directive form found on the website and bring it with you the day of your surgery. It can be witnessed and scanned into your chart that day. documented in this encounterMount Carmel Health System07-18-2022 Miscellaneous Notes* Telephone Encounter - Virgie Gar APRN.CNP - 04/22/2022 8:14 AM EDT Good morning, Swathi is scheduled for a laparoscopic gastrectomy with jejunostomy on 04/24. She was seen in [facility] today and was advised to stop her aspirin seven days prior to procedure. Is this ok? Thanks Virgie Gar APRN.FUNNEL SETTER documented in this encounterMount Carmel Health System07-15-2022 Miscellaneous Notes* Telephone Encounter - Mark Minor RN - 04/19/2022 3:42 PM EDT Images from the original note were not included. Prescription reconciled with pharmacy. Updated patient that she does not need to re test for Covid for upcoming surgery on 04/24/2022. Protocol notes that patients who are scheduled for surgery within 90 days of a positive Covid test do not have to re test for surgery. She has a positive Covid test at OSH on 02/28/2022. * Telephone Encounter - Swathi Flannery [facility] - 04/19/2022 3:12 PM EDT Patient called with pre-operative questions and concerns regarding if she needs th covid test or not return call to [phone] * Telephone Encounter - Swathi Flannery [facility] - 04/19/2022 10:41 AM EDT Pharmacy called for clarification on Flagyl return call to [phone] Electronically signed by Swathi Rainesdale [facility] at 04/19/2022 10:42 AM EDT documented in this encounterMount Carmel Health System07-14-2022 History of Present illness Narrative* Mark Minor RN - 04/18/2022 2:18 PM EDT AMBULATORY PATIENT EDUCATION NOTE PRE-OP TEACHING PROCEDURE: open gastrectomy READINESS TO LEARN COGNITIVE ABILITY: Alert and oriented MOTIVATION TO LEARN: Eager FAMILY SUPPORT: High - Very involved in pt care INSTRUCTION PROVIDED TO: Patient and family member PATIENT LEARNS BEST BY: Multiple Methods FACTORS AFFECTING LEARNING: None PHYSICAL LIMITATIONS AFFECTING LEARNING: None LEARNING RESPONSE DIAGNOSIS: GIST METHOD OF INSTRUCTION: Individual instruction Written instruction - handouts Verbal instruction PATIENT / FAMILY RESPONSE: Verbalizes understanding of: PAIN MANAGEMENT-Effective strategies to manage pain in addition to pain medication PHYSICAL RESTRICTIONS-Physical restrictions and recommendations after discharge from the hospital POST-OPERATIVE INSTRUCTIONS-Correct actions to take to reduce postoperative complications PRE-OPERATIVE INSTRUCTIONS-Correct action to take to follow pre-operative instructions SYMPTOM MANAGEMENT-Correct actions to take to manage symptoms associated with his/her disease/illness WORSENING CONDITION-Signs and symptoms of a worsening condition that warrant a call to the physician WOUND CARE-Correct procedure to perform wound care DIET- Post op diet OTHER PRE-OP INSTRUCTIONS: Covid 19 Testing Bowel Prep FOLLOW-UP PLAN: Complete - No need for follow-up Patient instructed to call with any further issues Contact information given. SUPPLEMENTAL MATERIAL: - Pre Op Instructions Handout - [facility] Brochure - Gastrectomy Overview Handout - Post Op Instructions Handout REFERRAL (RECOMMENDATION): None Electronically Signed By: Mark Minor RN In Department: GENERAL SURGERY documented in this encounterMount Carmel Health System07-14-2022 Nurse Note* Bonnie Cerrato MA - 04/18/2022 9:42 AM EDT What is the reason for your visit today? Pre op Who is your referring physician? Are you having poor oral intake? NO Have you had unintentional weight loss of 15 lbs/7 Kg in the last 3-6 months? NO Bowels: regular Wound: Temperature: No Drains: No documented in this encounterMount Carmel Health System07-14-2022 History of Present illness Narrative* Arnaldo Judd MD - 04/18/2022 9:30 AM EDT SURGERY PREOPERATIVE VISIT NOTE Name: Swathi Valladares Medical Record: [id number] Encounter No.: [id number] Swathi Valladares is a 66 year old female seen in surgery clinic today for their final preoperative assessment. INTERVAL NOTE: Here to discuss regarding most recent findings on her imaging. There has not been any decrease in size of the tumor. She was discussed today at GI tumor board. Recommendation was to proceed with definitive resection 04/16/2022 CT C/A/P PLANNED PROCEDURE: Explant laparotomy, partial gastrectomy, possible reconstruction PAST MEDICAL HISTORY: PAST MEDICAL HISTORY Diagnosis Date Aortic stenosis Bicuspid aortic valve History of gastrointestinal stromal tumor (GIST) Mitral valve prolapse Prosthetic aortic valve stenosis PAST SURGICAL HISTORY: PAST SURGICAL HISTORY Procedure Laterality Date COLONOSCOPY SCREENING 2018 HYSTERECTOMY LEFT HEART CATH,PERCUTANEOUS PAST SURGICAL HISTORY OF 1980 vocal chord polyp removal, second surgery insert plate SHX AORTIC VALVE REPLACEMENT 2018 #[address] Jeremi LOPEZ OPER STRES INCONTINENCE SOCIAL HISTORY: Social History Tobacco Use Smoking status: Never Smoker Smokeless tobacco: Never Used Substance Use Topics Alcohol use: Yes Comment: rare Drug use: No ALLERGIES: ALLERGIES No Known Allergies MEDICATIONS: Prior to Admission Medications: hydrOXYchloroQUINE (PLAQUENIL) 200 mg tablet TAKE 1 TABLET BY MOUTH TWICE DAILY WITH FOOD AND YEARLY EYE EXAM ondansetron (ZOFRAN) 8 mg tablet Take 1 tablet by mouth every 8 hours as needed for nausea/vomiting. imatinib (GLEEVEC) 400 mg tablet Take 1 tablet (400 mg) by mouth once daily. aspirin 81 mg chewable tablet Take 81 mg by mouth once daily. rivaroxaban (XARELTO) 20 mg tablet Take 1 tablet by mouth daily with dinner. famotidine (PEPCID AC) 20 mg tablet Take 1 tablet by mouth as needed. furosemide (LASIX) 20 mg tablet Take 20 mg by mouth as needed. therapeutic multivitamin (THERA VITAMIN) tablet Take 1 tablet by mouth daily with breakfast. No current facility-administered medications for this visit. VISIT NOTE This patient was seen in clinic today to obtain informed consent, to discuss the details of their upcoming operation including the appropriate expectations for perioperative and postoperative care. In addition, preoperative and postoperative relevant prescriptions were provided and explained duringthis clinic visit The consent discussion included the risks, benefits and anticipated outcomes of the procedure, the risks and benefits of the alternatives to the procedure, and the roles and tasks of the personnel nalini involved. I discussed with the patient regarding risks, benefits and alternatives to surgery including the risk of infection, bleeding, enterotomies, conversion to open, post operative, major biliary injury requiring reconstruction, post operative leak/abscess needing drains or surgery, scar formation and post operative pain. Patient understands risk of medical complications including DVT/PE, pneumonia, SC, UTI. Patient understands possibility of a prolonged post operative course, prolonged ICU stay and need for mechanical ventilation. I also discussed the possibility of other procedures including resection of the partial pancreas, partial colectomy, partial hepatectomy based on tumor involvement. Patient expressed understanding and consented to the surgery. The patient had an opportunity to ask additional questions that were answered. The patient expressed that they understood. A consent form was signed today. Prescriptions were explained and provided to the patient. Arnaldo Judd MD documented in this encounterMount Carmel Health System07-13-2022 Miscellaneous Notes* Telephone Encounter - Mark Minor RN - 04/17/2022 2:50 PM EDT Follow up call to patient dx: GIST Completed Testing: -04/16/2022 CT C/A/P Provided below information to patient. Date of surgery: 04/24/2022 Procedure: laparoscopic gastrectomy Surgeon: Dr. Arnaldo Judd Location: [facility] Scheduled for Pre Op Visit with Dr. Judd tomorrow 04/18 at 9:30am Expressed understanding of the above. Appreciative of call. * Telephone Encounter - Mira Martins - 04/17/2022 1:59 PM EDT Patient called wanting to know if she is o see Dr. Judd for an office visit tomorrow prior to surgery, please call her at [phone] documented in this encounterMount Carmel Health System06-17-2022 Miscellaneous Notes* Telephone Encounter - Rome Barboza MD - 03/22/2022 6:53 PM EDT Thanks for the update. Appreciate it. SJK * Telephone Encounter - Rhiannon Maza RN - 03/22/2022 4:43 PM EDT Pt calls back stating she has an EKG and echo scheduled. She did recently start plaquenil and one of the side effects from this is dizziness. She has stopped this to see if her symptoms resolve. Rhiannon Maza RN * Telephone Encounter - Rhiannon Maza RN - 03/22/2022 2:52 PM EDT Message left for pt to call our office back. Rhiannon Maza RN * Telephone Encounter - Rhiannon Maza RN - 03/22/2022 2:51 PM EDT ----- Message from Rome Barboza MD sent at 03/22/2022 8:52 AM EDT ----- Hi Tiff. Can you please let pt know that the CT brain was negative. If she is still having pre-syncopal episodes, she will need additional testing such as US of the carotid and heart. Thanks, [place] documented in this encounterMount Carmel Health System06-14-2022 History of Present illness Narrative* Rome Barboza MD - 03/19/2022 9:45 AM EDT GI ONCOLOGY FOLLOW UP Elements in this clinic note that are critical to medical decision making have been carefully reviewed and included from my prior clinic note dated: February 05, 2022 March 19, 2022 PCP and other physicians involved in patient's care: Vivi Liao (PCP), Harpreet Smith (GI), Toña Garcia (cards), Kassie Oconnor (rheum) DIAGNOSIS: Gastrointestinal Stromal Tumor ONCOLOGIC HISTORY AND TREATMENT DETAILS: Presented initially with worsening dyspnea in the setting of restenosis of a previously placed aortic valve. Got CT scans as a part of the evaluation prior to TAVR August 17, 2021 CT chest abdomen pelvis notable for large heterogeneous mass in the left abdomen measuring 7.6 x 6.1 x 10.8 cm, nonspecific groundglass opacities in lungs and borderline enlarged mediastinal nodes November 07, 2021 EGD EUS (Dr. Cuello) notable for gastric tumor on the lesser curvature; cytology showed a spindle cell neoplasm consistent with GIST (positive staining for CD117 and Dog 1, negative for desmin) November 15, 2021 tumor board recommendations were to do a CT chest to complete staging. There was a concern for for a paraaortic node that needed for be evaluated by a PET November 27, 2021 CT chest negative for thoracic spread. PET scan showed heterogeneous uptake in the known GIST and a focus of uptake in the right hemipelvis may be secondary to ureteral and/or nodaluptake. Follow up CT abdomen pelvis on December 07, 2021 was without any pelvic adenopathy. December 19, 2021 started imatinib 400 mg daily January 29, 2022 CT chest abdomen pelvis with stable gastric mass and borderline chest adenopathy INTERVAL HISTORY: Swathi comes back for follow-up. Since last visit, she has completed prednisone taper and is now on hydroxychloroquine. No side effects reported per patient. She does endorse a new dizziness and a feeling of passing out without actual loss of consciousness for the last 4-5 weeks. No headaches or blurry vision. No motor weakness. No tingling or numbness. No neck pain. No ear painor difficulty hearing. No particular position that worsens this symptom. ROS is negative except that mentioned in HPI PAST MEDICAL SURGICAL FAMILY AND SOCIAL HISTORY: She has a history of Prosthetic aortic valve for bicuspid aortic stenosis, complicated by restenosis, status post TAVR Mitral valve prolapse On chronic anticoagulation Anemia, normocytic, either malignancy related versus autoimmune (positive LÁZARO and SSB) Vocal cord nodule, resected, complicated by paralysis of right vocal cord Gastroesophageal reflux Chronic cough and dyspnea Sjogren's hypocomplementemia Previous surgeries include aortic valve replacement, TAVR, sling operation for stress incontinence and resection of vocal cord nodule. Family history significant for liver cancer in father. No substance abuse. MEDICATIONS AND ALLERGIES: Reviewed PHYSICAL EXAM BP 142/83 Pulse 91 Temp 36.3 C (97.3 F) (Temporal) Resp 16 Ht 160 cm (5' 2.99 ) Wt 58.8 kg (129 lb 11.2 oz) SpO2 99% BMI 22.98 kg/m PS - 0, Head atraumatic, no pallor, icterus or lymphadenopathy, lungs clear to auscultation, heart sounds with a systolic murmur, abdomen with a firm mass in the central portion that is non-tender, extremities with vasculitic rash on shins, alert and oriented x3, power 5/5 in all extremities, no nystagmus, cranial nerves intact LABORATORY, IMAGING AND PATHOLOGY CBC and CMP reviewed Anemia resolved Skin biopsy results reviewed ASSESSMENT AND RECOMMENDATIONS 66 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 Tissue quantity was insufficient for mutational analysis. She is currently on neoadjuvant imatinib 400 mg daily. Side effects include hand cramping which is mild. Interval CT scans show stable disease and I recommended her to continue imatinib. Patient understands that risk stratification on the surgical specimen may be hampered with the use of neoadjuvant TKI. Follow-up in 1 month for toxicity check. Repeat CT scans prior to next visit. Anemia: This is normocytic and present since 2018. Upon evaluation in December,, haptoglobin was low but detectable, RPI was low, LDH was 221, total bilirubin was 0.5, ferritin was 60 with normal serum iron, TIBC and saturation, B12 was normal, and LÁZARO/SSB antibodies were positive. Stool was negative for occult blood. Low haptoglobin could have been related to recent TAVR procedure. EGD in [place] colonoscopy in 2018 did not reveal any obvious cause of bleeding. Recent CT scans did not reveal any abnormality apart from the known gastric GIST. My main differential is chronic inflammation. She is following rheumatology for suspected Sjogren's disease and hypocomplementemia. She is also following with dermatology for vasculitis. The edema resolved after the prednisone taper, likely reflecting an immune or inflammatory component. She is now on hydroxychloroquine. Continue follow ups with dermatology and rheumatology. 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 This is likely secondary to GIST versus a chronic inflammatory disorder. Liver and renal function testing is normal. Pre-syncope: This is a new symptom since last 4 weeks. Neurological examination is normal. I will obtain a CT brain without contrast. If negative, additional testing such as echocardiogram and ENT evaluation might be needed. I have requested her to reach out to Dr. Arroyo to see if this might be related to hydroxychloroquine. Rome Barboza MD I spent a total of 28 minutes on the date of the service which included preparing to see the patient, [id number] patient care, completing clinical documentation, obtaining and/or reviewing separately obtained history, performing a medically appropriate examination, counseling and educating the pat ient/family/caregiver, ordering medications, tests, or procedures, independently interpreting results (not separately reported) and communicating results to the patient/family/caregiver. documented in this encounterMount Carmel Health System05-03-2022 History of Present illness Narrative* Rome Barboza MD - 02/05/2022 9:00 AM EDT GI ONCOLOGY FOLLOW UP Elements in this clinic note that are critical to medical decision making have been carefully reviewed and included from my prior clinic note dated: January 01, 2022 February 05, 2022 PCP and other physicians involved in patient's care: Vivi Liao (PCP), Harpreet Smith (GI), Toña Garcia (cards), Kassie Oconnor (rheum) DIAGNOSIS: Gastrointestinal Stromal Tumor ONCOLOGIC HISTORY AND TREATMENT DETAILS: Presented initially with worsening dyspnea in the setting of restenosis of a previously placed aortic valve. Got CT scans as a part of the evaluation prior to TAVR August 17, 2021 CT chest abdomen pelvis notable for large heterogeneous mass in the left abdomen measuring 7.6 x 6.1 x 10.8 cm, nonspecific groundglass opacities in lungs and borderline enlarged mediastinal nodes November 07, 2021 EGD EUS (Dr. Cuello) notable for gastric tumor on the lesser curvature; cytology showed a spindle cell neoplasm consistent with GIST (positive staining for CD117 and Dog 1, negative for desmin) November 15, 2021 tumor board recommendations were to do a CT chest to complete staging. There was a concern for for a paraaortic node that needed for be evaluated by a PET November 27, 2021 CT chest negative for thoracic spread. PET scan showed heterogeneous uptake in the known GIST and a focus of uptake in the right hemipelvis may be secondary to ureteral and/or nodaluptake. Follow up CT abdomen pelvis on December 07, 2021 was without any pelvic adenopathy. December 19, 2021 started imatinib 400 mg daily January 29, 2022 CT chest abdomen pelvis with stable gastric mass and borderline chest adenopathy INTERVAL HISTORY: Swathi comes back for follow-up. Since last visit, she has seen rheumatology who suspects that she has Sjogren's disease with hypocomplementemia. She also had a skin biopsy with a equipment records supervisor that shows lymphoplasmacytic inflammation. She is currently on a prednisone taper. She d enies any nausea, vomiting, GI upset or periorbital swelling. She does endorse cramping in the fingers and top portion of the feet. This is not affecting quality of life much. ROS is negative except that mentioned in HPI PAST MEDICAL SURGICAL FAMILY AND SOCIAL HISTORY: She has a history of Prosthetic aortic valve for bicuspid aortic stenosis, complicated by restenosis, status post TAVR Mitral valve prolapse On chronic anticoagulation Anemia, normocytic, either malignancy related versus autoimmune (positive LÁZARO and SSB) Vocal cord nodule, resected, complicated by paralysis of right vocal cord Gastroesophageal reflux Chronic cough and dyspnea Sjogren's hypocomplementemia Previous surgeries include aortic valve replacement, TAVR, sling operation for stress incontinence and resection of vocal cord nodule. Family history significant for liver cancer in father. No substance abuse. 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 Tissue quantity was insufficient for mutational analysis. She is currently on neoadjuvant imatinib 400 mg daily. Side effects include hand cramping which is mild. Interval CT scans show stable disease and I recommended her to continue imatinib. Follow-up in 1 monthfor toxicity check. Repeat scans in 2-3 months. Patient understands that risk stratification on the surgical specimen may be hampered with the use of neoadjuvant TKI. Follow-up in 4 weeks for toxicity check and CT scans. Anemia: This is normocytic and present since 2018. Upon evaluation in December,, haptoglobin was low but detectable, RPI was low, LDH was 221, total bilirubin was 0.5, ferritin was 60 with normal serum iron, TIBC and saturation, B12 was normal, and LÁZARO/SSB antibodies were positive. Stool was negative for occult blood. Low haptoglobin could be related to recent TAVR procedure. EGD in 2020 and colonoscopy in 2018 did not reveal any obvious cause of bleeding. Recent CT scans did not reveal any abnormality apart from the known gastric GIST. My main differential is chronic inflammation. She is following rheumatology for suspected Sjogren's disease and hypocomplementemia. She is also following with dermatology for vasculitis. Since starting the prednisone taper, her anemia has resolved, likely reflecting an immune or inflammatory component. Continue prednisone taper and follow ups with dermatology and rheumatology. 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 This is likely secondary to GIST versus a chronic inflammatory disorder. Liver and renal function testing is normal. Rome Barboza MD I spent a total of 25 minutes on the date of the service which included preparing to see the patient, [id number] patient care, completing clinical documentation, obtaining and/or reviewing separately obtained history, performing a medically appropriate examination, counseling and educating the pat ient/family/caregiver, ordering medications, tests, or procedures, independently interpreting results (not separately reported) and communicating results to the patient/family/caregiver. documented in this encounterMount [facility]el [facility] System05-03-2022 Nurse Note* Rach Aguiar MA - 02/05/2022 8:50 AM EDT Patient states her hands have been cramping terribly. Rach Aguiar MA documented in this encounterMount Carmel Health System04-01-2022 Miscellaneous Notes* Telephone Encounter - Roxann Rodriguez - 01/31/2022 2:31 PM EDT Patient notified to garbage pick up man life insurance form. Roxann Rodriguez MA * Telephone Encounter - Daja Lopez - 01/29/2022 1:27 PM EDT Life insurance paperwork completed and placed in folder to be signed. Daja Lopez documented in this encounterMount Carmel Health System03-29-2022 History of Present illness Narrative* Rome Barboza MD - 01/01/2022 8:05 AM EDT GI ONCOLOGY FOLLOW UP Elements in this clinic note that are critical to medical decision making have been carefully reviewed and included from Tammie Gramajo's prior clinic note dated: December 11, 2021 January 01, 2022 PCP and other physicians involved in patient's care: Vivi Liao (PCP), Harpreet Smith (GI), Toña Garcia (cards) DIAGNOSIS: Gastrointestinal Stromal Tumor ONCOLOGIC HISTORY AND TREATMENT DETAILS: Presented initially with worsening dyspnea in the setting of restenosis of a previously placed aortic valve. Got CT scans as a part of the evaluation prior to TAVR August 17, 2021 CT chest abdomen pelvis notable for large heterogeneous mass in the left abdomen measuring 7.6 x 6.1 x 10.8 cm, nonspecific groundglass opacities in lungs and borderline enlarged mediastinal nodes November 07, 2021 EGD EUS (Dr. Cuello) notable for gastric tumor on the lesser curvature; cytology showed a spindle cell neoplasm consistent with GIST (positive staining for CD117 and Dog 1, negative for desmin) November 15, 2021 tumor board recommendations were to do a CT chest to complete staging. There was a concern for for a paraaortic node that needed for be evaluated by a PET November 27, 2021 CT chest negative for thoracic spread. PET scan showed heterogeneous uptake in the known GIST and a focus of uptake in the right hemipelvis may be secondary to ureteral and/or nodaluptake. Follow up CT abdomen pelvis on December 07, 2021 was without any pelvic adenopathy. December 19, 2021 started imatinib 400 mg daily INTERVAL HISTORY: Swathi comes back for follow-up toxicity check. She has been on imatinib for the last 2 weeks. Initial symptoms included nausea that improved with time. She also then started havingsignificant bilateral leg pain and edema that is slowly gotten better. However, she is taking ibuprofen 400 mg almost on a daily basis to counteract the pain. Edema is mild and is allowing her to cont inue working. Fatigue is persistent and chronic. No myalgias or periorbital edema. No fevers or chills. ROS is negative except that mentioned in HPI PAST MEDICAL SURGICAL FAMILY AND SOCIAL HISTORY: She has a history of Prosthetic aortic valve for bicuspid aortic stenosis, complicated by restenosis, status post TAVR Mitral valve prolapse On chronic anticoagulation Anemia, normocytic, either malignancy related versus autoimmune (positive LÁZARO and SSB) Vocal cord nodule, resected, complicated by paralysis of right vocal cord Gastroesophageal reflux Chronic cough and dyspnea Previous surgeries include aortic valve replacement, TAVR, sling operation for stress incontinence and resection of vocal cord nodule. Family history significant for liver cancer in father. No substance abuse. 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 Tissue quantity was insufficient for mutational analysis. She is currently on neoadjuvant imatinib 400 mg daily. Side effects include leg pain and edema which have been controlled with ibuprofen. Advised patient to try acetaminophen instead. We will recommend interval CT scans 6 weeks since start date of imatinib. Patient understands that risk stratification on the surgical specimen may be hampered with the use of neoadjuvant TKI. Follow-up in 4 weeks for toxicity check and CT scans. Anemia: This is normocytic and present since 2018. Upon evaluation in December,, haptoglobin was low but detectable, RPI was low, LDH was 221, total bilirubin was 0.5, ferritin was 60 with normal serum iron, TIBC and saturation, B12 was normal, and LÁZARO/SSB antibodies were positive. Stool was negative for occult blood. Patient has received transfusions for heavy menses 30 years back but has not had any previous hematologic evaluation. EGD in 2020 and colonoscopy in 2018 did not reveal any obvious cause of bleeding. Recent CT scans did not reveal any abnormality apart from the known gastric GIST. Differentials include anemia secondary to GIST versus chronic inflammation. Low haptoglobin could be related to recent TAVR procedure. Rheumatology referral provided for positive LÁZARO and SSB, andpainful digits on exposure to cold. Hold off on bone marrow biopsy for now. 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 This is likely secondary to GIST versus a chronic inflammatory disorder. Liver and renal function testing is normal. Rome Barboza MD I spent a total of 28 minutes on the date of the service which included preparing to see the patient, [id number] patient care, completing clinical documentation, obtaining and/or reviewing separately obtained history, performing a medically appropriate examination, counseling and educating the pat ient/family/caregiver, ordering medications, tests, or procedures, independently interpreting results (not separately reported) and communicating results to the patient/family/caregiver. documented in this encounterMount Carmel Health System01-27-2022 Evaluation note* Encounter Date Diagnosis Assessment Notes Treatment Notes Treatment Clinical Notes Oct, Nausea (ICD-10 - R11.0) Oct, Hospital discharge follow-up (ICD-10 - Z09) Only hospitalized at [facility] with uncomplicated pneumonia. I do not have all the details, location, organism, or specifics of treatment. Stay at [facility] was brief, with resolution of symptomatology. Only complication post hospital, was a development of Covid, for which she has successfully recovered with no sequela.During that hospitalization was seen by oncology, who is working with her on referral to surgical oncologist for gastric mass. Oct, Aortic stenosis, moderate (ICD-10 - I35.0) Patient is status post AVR, with deterioration of the replaced valve. She has been scheduled for a TAVR, but during routine testing, was found to have a gastric mass of uncertain etiology.Referred to local surgeon, who in turn referred her to a surgical oncologist at [facility] in [place]. She is in the process of work-up for this. Oct, COPD (chronic obstructive pulmonary disease) (ICD-10 - J44.9) Because of her continued cough, local oncologist is planning referral to another bareback rider in the [place] area for consideration of bronchoscopy. Oct, Grief reaction (ICD-10 - F43.20) Grieving the loss of her several years ago, symptoms exacerbated by current medical problems that she is experiencing. 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 Judd, will be performing a biopsy of this mass next week. Presumptive diagnosis is GIST. [facility] Other 01-08-2022 NoteMicrobiology PROCEDURE: Blood Culture Charcoal [R1] SOURCE: Blood BODY SITE: Hand L COLLECTED DATE/TIME: 10/06/2021 08:05 EST RECEIVED DATE/TIME: 10/06/2021 09:16 EST START DATE/TIME: 10/06/2021 09:16 EST FREE TEXT SOURCE: Vivi MENDEZ, Danny Aguilera MD, Danny FINAL REPORTS Final Report [] Verified Date/Time: 10/13/2021 16:17 EST No growth at 7 days. Performing Locations R1: This test was performed at: [facility], [address] [place] [address], [id number], RgcwkkMercy Health West HospitalComment on above:Performed By: #### [id number] #### [facility] [address] [place] [address] [id number] NoteMicrobiology PROCEDURE: Blood Culture Charcoal [R1] SOURCE: Blood BODY SITE: Arm R COLLECTED DATE/TIME: 10/06/2021 08:01 EST RECEIVED DATE/TIME: 10/06/2021 09:15 EST START DATE/TIME: 10/06/2021 09:16 EST FREE TEXT SOURCE: rt ricardo Aguilera MD, Danny Aguilera MD, Danny FINAL REPORTS Final Report [] Verified Date/Time: 10/13/2021 16:17 EST No growth at 7 days. Performing Locations R1: This test was performed at: [facility], [address] [place] [address], [id number], HexjbdMercy Health West HospitalComment on above:Performed By: #### [id number] ####[facility] [address] [place], [place] [id number] NoteAdmission Information Admit Date/Time:10/06/2021 14:35 Admitting Physician - Brett MENDEZ [facility] Consulting Physician - Danny Junior [facility] 66-year-old female with past medical history of abdominal mass presented to emergency department due to evaluation off fever cough and shortness of breath. Patient is scheduled for biopsy as outpatient on the at [facility] patient was admitted and her CT scan on admission revealed airspace opacification in both lung including areas of confluent airspace opacification and groundglass. She was also found to have small focal nodular density in left lower lobe suspicion for mass. She had no lung nodules on her previous imaging in August. This could be infectious in etiology and patient would benefit from PET scan as outpatient. In the hospital she was seen and evaluated byhematology and oncology who will follow up with patient after a course of antibiotics. Case was discussed with Dr. Gutiérrez as well and he stated there is no indication for bronchoscopy at this point and he will follow up with patient and PET scan is appropriate. She had coronavirus testing done 3 times and all 3 times came back negative along with 1 rapid antigen testing. She is in stable conditionfor discharge and will get Augmentin on discharge to treat possible superimposed bacterial infection. Significant Findings WBC: 5.3 E9/L (10/08/21 10:36:00) RBC: 4 E12/L Low (10/08/21 10:36:00) HGB: 12 gm/dL (10/08/21 10:36:00) Hct: 35.1 % (10/08/21 10:36:00) MCV: 87.6 fL (10/08/21 10:36:00) MCH: 29.9 pg (10/08/21 10:36:00) MCHC: 34.1 gm/dL (10/08/21 10:36:00) RDW: 13.5 % (10/08/21 10:36:00) Platelet: 196 E9/L (10/08/21 10:36:00) MPV: 6.9 fL (10/08/21 10:36:00) Neutro Auto: 69.6 % (10/08/21 10:36:00) Lymph Auto: 21.7 % (10/08/21 10:36:00) [place] Auto: 6.4 % (10/08/21 10:36:00) Eos Auto: 2 % (10/08/21 10:36:00) Basophil Auto: 0.3 % (10/08/21 10:36:00) Neutro Absolute: 3.7 E9/L (10/08/21 10:36:00) Lymph Absolute: 1.1 E9/L (10/08/21 10:36:00) [place] Absolute: 0.3 E9/L (10/08/21 10:36:00) Eos Absolute: 0.1 E9/L (10/08/21 10:36:00) Basophil Absolute: 0 E9/L (10/08/21 10:36:00) Glucose Lvl: 76 mg/dL (10/08/21 10:36:00) BUN: 16 mg/dL (10/08/21 10:36:00) Creatinine: 0.7 mg/dL (10/08/21 10:36:00) eGFR: >60 (10/08/21 10:36:00) eGFR AA: >60 (10/08/21 10:36:00) BUN/Creat Ratio: 23 High (10/08/21 10:36:00) Sodium Lvl: 132 mmol/L Low (10/08/21 10:36:00) Potassium Lvl: 3.4 mmol/L Low (10/08/21 10:36:00) Chloride: 102 mmol/L (10/08/21 10:36:00) CO2: 23 mmol/L (10/08/21 10:36:00) AGAP: 10 mEq/L (10/08/21 10:36:00) Calcium Lvl: 8.6 mg/dL Low (10/08/21 10:36:00) Magnesium: 1.8 mg/dL (10/08/21 10:36:00) Physical Exam Vitals & Measurements T: 36.3 ?C(Oral) TMIN: 36.3 ?C(Oral) TMAX: 36.7 ?C(Oral) HR: 71(Monitored) RR: 18 BP: 145/84 SpO2: 95% WT: 54.7 kg General: alert, no acute distress on room air ENMT: TM's clear, oral mucosa moist, no pharyngeal erythema or exudate Cardiovascular: regular rate and rhythm, normal peripheral perfusion Respiratory: Lungs CTA, respirations non labored Abdomen: Soft, nontender, without rebound or rigidity, positive bowel sounds Extremities: no deformity, no trauma Neurological: oriented x 4, LOC appropriate for age, CN II-XII intact, motor strength equal & normal bilaterally, sensation equal & normal bilaterally, speech normal Images (10/06/2021 09:40 EST CTA Chest) * Final Report * Reason For Exam PE suspected, low/intermediate prob, positive D-dimer;Other (please specify) POWERSCRIBE REPORT IMPRESSION: NO CT EVIDENCE OF PULMONARY EMBOLISM. THERE ARE AREAS OF AIRSPACE OPACIFICATION IN BOTH LUNGS, INCLUDING AREAS OF CONFLUENT AIRSPACE OPACIFICATION AND GROUNDGLASS OPACIFICATIONS. A COMBINATION OF ATELECTASIS AND PNEUMONIA IS SUSPECTED. CORRELATE CLINICALLY. SMALL FOCAL NODULAR DENSITY IN THE LEFT LOWER LOBE, SUSPICIOUS FOR A MASS. PLEASE REFER TO [employer] GUIDELINES FOR MANAGEMENT RECOMMENDATIONS. CLINICAL HISTORY: PE suspected, low/intermediate prob, positive D-dimer. Cough. Shortness of breath. COMMENT: Axial images were obtained after the rapid injection of IV contrast with narrow collimation and reconstructed at a narrow interval. Coronal and sagittal reconstructions were performed. On the PACS, images were reviewed in cine display and using MIP postprocessing. The pulmonary arteries are contrast opacified and no intraluminal filling defects are noted. The thoracic aorta is within normal limits in diameter, without evidence of aneurysm or dissection. There are sternotomy wires. There is an aortic valve prosthesis. The heart is upper limits of normal to borderline enlarged. No pericardial effusion is noted. There are nonspecific mediastinal and hilar lymph nodes. No discrete prominently enlarged mediastinal nor hilar nodes are evident. There are areas of confluent airspace opacification in (more content not included)...[facility] HospitalComment on above:Result Comment: Electronically Signed By: Tutu LERNER MD\.br\Date and Time Signed: 10/08/21 12:42 [id number] Kandice Queen entered the room to discuss dc planning. DME discussed. PCP/Insurance reviewed. Patient alert and involved in plan of care. Contact information provided and whiteboard updated. Pt has scheduled stomach mass bx scheduled at [facility] 10/18. May need bronch. Still on ATB therapy. Pt lives with gdson and family will be transport at [facility]. No further needs. ANt dc TBD. CRM to follow.[facility] HospitalComment on above:Result Comment: Electronically Signed By: Bernice Bautista\.br\Date and Time Signed: 10/08/21 08:48 [id number] NoteDrRena Cadena rounded with patient earlier. CRM stopped into patient's room, patient is alert and participates in plan of care. Patient is in COVID isolation - proper PPE maintained. patient's daughter, Arabella at bedside. Patient lives at home with grandsons. Patient is on 2L nasal cannula at this time and does not wear home oxygen. Hem/Onc consult for stomach mass. Insurance information, PCP and DME verified. Medicare Rights Form discussed with and signed by patient. Original given to patient. Contact information provided. Anticipated discharge 10/08 or 10/09/2021. CRM to follow.[facility] HospitalComment on above:Result Comment: Electronically Signed By: Linette Knowles RN\Date and Time Signed: 10/07/21 09:46 [id number] NoteChief Complaint Pt has had cold since the weekend and getting worse. Cough, SOB. Started with abdominal pain lastnight. RUQ pain that radiates to R flank. Was diagnosed with tumor in August. 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 She has been complaining of not feeling well for almost a week. She has been having a productive cough with yellow sputum. Associated pleuritic chest pain. Her difficulty breathing got worse for the last couple days. Associated with fever. Is associated with nausea and diarrhea. No vomiting. No abdominal pain. She is s/p bovine aortic valve replacement. She is scheduled to have a TEVAR procedure. She just had recent diagnosis with a abdominalmass. She is scheduled to have outpatient work-up including endoscopy. Review of Systems Constitutional: mild fever, no chills, no sweats, moderate weakness Skin: no Jaundice, no rash, no lesions, nopetechiae ENMT: no ear pain, no sore throat, no congestion, no hoarseness Respiratory: moderate shortness of breath, moderate cough, no orthopnea, no wheezing Cardiovascular: no chest pain, no palpitations, no edema Gastrointestinal: moderate nausea, no vomiting, mild diarrhea, no GI bleeding Genitourinary: no dysuria, no hematuria, no discharge, no pain Musculoskeletal: no back pain, no trauma Neurologic: no headache, no dizziness, no numbness, no weakness Psychiatric: no sleeping problems, no irritability, no mood swings/depression. Heme/Lymph: no bleeding tendency, no bruising tendency, no petechiae, no swollen nodes Allergy/Immunologic: no seasonal allergies, no food allergies, no recurrent infections, no impairedimmunity Additional ROS info: Except as noted in the above Review of Systems and in the History of Present Illness all other systems have been reviewed and are negative or noncontributory. Physical Exam Vitals & Measurements T: 37.2 ?C(Oral) HR: 108(Monitored) RR: 19 BP: 140/85 SpO2: 95% WT: 52.3 kg WT: 52.3 kg General: alert, no acute distress Skin: warm, dry Head: no trauma, normocephalic Neck: Trachea midline, no adenopathy, no tenderness Eye: normal conjunctiva, sclera clear ENMT: TM's clear, oral mucosa moist, no pharyngeal erythema or exudate Cardiovascular: regular rate and rhythm, normal peripheral perfusion Respiratory: Lungs expiratory wheezes, respirations non labored Chest wall: no deformity. Gastrointestinal: soft, non distended, no tenderness, no guarding. Back: No tenderness, Normal ROM, Normal alignment. Extremities: no deformity, no trauma Neurological: oriented x 4, LOC appropriate for age, CN II-XII intact, motor strength equal & normal bilaterally, sensation equal & normal bilaterally, speech normal Psychiatric: cooperative, affect appropriate for age, normal judgement, normal psychiatric thoughts. Lab Results WBC: 9.1 E9/L (10/06/21 07:30:00) RBC: 3.9 E12/L Low (10/06/21 07:30:00) HGB: 11.9 gm/dL Low (10/06/21 07:30:00) Hct: 34.1 % (10/06/21 07:30:00) MCV: 87.4 fL (10/06/21 07:30:00) MCH: 30.5 pg (10/06/21 07:30:00) MCHC: 34.9 gm/dL (10/06/21 07:30:00) RDW: 13.9 % (10/06/21 07:30:00) Platelet: 225 E9/L (10/06/21 07:30:00) MPV: 7 fL (10/06/21 07:30:00) Neutro Auto: 86.9 % High (10/06/21 07:30:00) Lymph Auto: 5.7 % Low (10/06/21 07:30:00) [place] Auto: 7.3 % (10/06/21 07:30:00) Eos Auto: 0 % (10/06/21 07:30:00) Basophil Auto: 0.1 % (10/06/21 07:30:00) Neutro Absolute: 7.9 E9/L High (10/06/21 07:30:00) Lymph Absolute: 0.5 E9/L Low (10/06/21:30:00) [place] Absolute: 0.7 E9/L (10/06/21:30:00) Eos Absolute: 0 E9/L (10/06/21::00) Basophil Absolute: 0 E9/L (10/06/21::00) PT: 14 second(s) High (10/06/21:30:00) INR: 1.2 (10/06/21::00) PTT: 32.7 second(s) (10/06/21::00) D-Dimer: 4452 ng/mL FEU Critical (10/06/21::00) Glucose Lvl: 105 mg/dL (10/06/21::) BUN: 15 mg/dL (10/06/21::) Creatinine: 0.8 mg/dL (10/06/21:) eGFR: >60 (10/06/21:) eGFR AA: >60 (10/06/21:) BUN/Creat Ratio: 19 (10/06/21::00) Sodium Lvl: 127 mmol/L Low (10/06/21::00) Potassium Lvl: 3.6 mmol/L (10/06/21::00) Chloride: 98 mmol/L Low (10/06/21:00) CO2: 23 mmol/L (10/06/21::) AGAP: 10 mEq/L (10/06/21 07::) Calcium Lvl: 9 mg/dL (10/06/21::) Troponin: 14.5 pg/mL (10/06/21 13:35:00) BNP: 20 pg/mL (10/06/21::00) Procalcitonin: 0.22 ng/mL (10/06/21 07:30:00) UA Spec Desc: Clean Catch (10/06/21 11:11:00) UA Color: Yellow2 (10/06/21 11:11:00) UA Clarity: Clear2 (10/06/21 11:11:00) UA Spec Grav: 1.010 (10/06/21 11:11:00) UA pH: 6.5 (10/06/21 11:11:00) UA Protein: NEGATIVE1 (10/06/21 11:11:00) UA Glucose: NEGATIVE1 (10/06/21 11:11:00) UA Ketones: NEGATIVE1 (10/06/21 11:11:00) UA Bili: NEGATIVE1 (10/06/21 11:11:00) UA Blood: 1+ Abnormal (10/06/21 11:11:00) (more content not included)...[facility] on above:Result Comment: Electronically Signed By: MARIA T MENDEZ, Sylvester\.br\Date and Time Signed: 10/06/21 [id number] Evaluation note* Encounter Date Diagnosis Assessment Notes Treatment Notes Treatment Clinical Notes Sep, Aortic stenosis, moderate (ICD-10 - I35.0) This patient has a multitude of pending medical problems, probably the most significant of which is pending transarterial valve replacement of her aortic valve. Previously had a valve replaced, which is now failing and creating significant clinical symptomatology this is giving her a lot of distress in terms of vaccination. She does not feel that she is physically or emotionally ready to be vaccinated given these pending medical issues. She is concerned given her overall general health and the risks associated with this valve repair. Additionally, the patient has some type of mass in her abdomen which is being evaluated and probably removed by general surgery. For all these reasons, was the distress that she is feeling in her personal preferences, I feel a medical waiver is clinically indicated even these acute medical issues. 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 Sees pulmonology for these medical issues which are aggressively managed. Sep, Grief reaction (ICD-10 - F43.20) Still grieving the of her 3 to 4 years ago of colorectal cancer. Sep, Bronchiectasis with acute exacerbation (ICD-10 - J47.1) As stated, her COPD is predominantly bronchiectasis. [facility] Other 10-13-2021 Evaluation note* Encounter Date Diagnosis Assessment Notes Treatment Notes Treatment Clinical Notes Jul, Medication monitoring encounter (ICD-10 - Z51.81) Referring Provider: Petey Woodall Diagnosis: AVR, PVC INR Goal: 2-3 INR: 1.6 Tablet Size: 2.5mg Friday: 3.75mg Friday: 3.75mg Friday: 2.5mg Friday: 3.75mg : 2.5mg Friday: 3.75mg Friday: 2.5mg Total Weekly Dose: 22.5mg Boost additional 1.25mg x2 days then continue current plan. Patient admits to missing Friday. Follow up in 4 weeks. Patient will have TAVR procedure for valve in August at [facility] and is anticipating on holding warfarin x5-7 days. [id number]= [address] for age and female per [facility]. Seen by Swathi Beauchamp RN [facility] Other 06-08-2018 History of Past illness Narrative* Problem Noted Date Resolved Date Postoperative hypovolemia 03/13/20182017 Overview: A/p: IV fluid resuscitation for decreased BP Preop testing 03/12/2018 03/18/2018 [facility] Surgeon: Mariajose Blood M.D. Informed Consent Completed: Yes STS Score: 0.923 CAD: No Is intended procedure a CABG: No - is a beta hedy ordered? No - reason: NI H & P completed: Yes PA/LAT: N/A CT: Completed Dr Blood aware of CT scan results and no further consults or tests needed MRI: N/A LE US: N/A Cath: Yes - reviewed: Yes OSH on syngo Echo:Completed EKG: Completed EF %: 59 PI's: N/A Carotid: N/A Mapping: N/A Dental: Completed PFT's: N/A Recent Labs 03/11/18 1028 03/11/18 1005 WBC -- 3.44* HB -- 14.7 HCT -- 45.8 PLT -- 269 INR -- 1.0 CREAT 0.70 0.80 UA: Normal HCG:N/A ABO/ABO Confirmed: Yes Blood ordered: No SA Swab: Yes - results: Pending Last Dose of Anticoagulation: none per patient Op Note: No Pacemaker Check: N/A Implants: no Consults: DM: No Cardiac Surgical prep: N/A patient encouraged to fill out advance directives and take to J1-1 to be scanned SIGNATURE: Ivory Cardoso RN CHECKED BY: [email or web address] DATE of SERVICE: 03/12/2018 TIME of SERVICE: 10:02 AM documented as of this encounter (statuses as of 01/01/2022) [facility] History of Past illness Narrative* Problem Noted Date Resolved Date Postoperative hypovolemia 03/13/20182017 Overview: A/p: IV fluid resuscitation for decreased BP Preop testing 03/12/2018 03/18/2018 [facility] Surgeon: Mariajose Blood M.D. Informed Consent Completed: Yes STS Score: 0.923 CAD: No Is intended procedure a CABG: No - is a beta hedy ordered? No - reason: NI H & P completed: Yes PA/LAT: N/A CT: Completed Dr Blood aware of CT scan results and no further consults or tests needed MRI: N/A LE US: N/A Cath: Yes - reviewed: Yes OSH on syngo Echo:Completed EKG: Completed EF %: 59 PI's: N/A Carotid: N/A Mapping: N/A Dental: Completed PFT's: N/A Recent Labs 03/11/18 1028 03/11/18 1005 WBC -- 3.44* HB -- 14.7 HCT -- 45.8 PLT -- 269 INR -- 1.0 CREAT 0.70 0.80 UA: Normal HCG:N/A ABO/ABO Confirmed: Yes Blood ordered: No SA Swab: Yes - results: Pending Last Dose of Anticoagulation: none per patient Op Note: No Pacemaker Check: N/A Implants: no Consults: DM: No Cardiac Surgical prep: N/A patient encouraged to fill out advance directives and take to J1-1 to be scanned SIGNATURE: Ivory Cardoso RN CHECKED BY: [email or web address] DATE of SERVICE: 03/12/2018 TIME of SERVICE: 10:02 AM documented as of this encounter (statuses as of 01/31/2022) [facility] History of Past illness Narrative* Problem Noted Date Resolved Date Postoperative hypovolemia 03/13/20182017 Overview: A/p: IV fluid resuscitation for decreased BP Preop testing 03/12/2018 03/18/2018 [facility] Surgeon: Mariajose Blood M.D. Informed Consent Completed: Yes STS Score: 0.923 CAD: No Is intended procedure a CABG: No - is a beta hedy ordered? No - reason: NI H & P completed: Yes PA/LAT: N/A CT: Completed Dr Blood aware of CT scan results and no further consults or tests needed MRI: N/A LE US: N/A Cath: Yes - reviewed: Yes OSH on syngo Echo:Completed EKG: Completed EF %: 59 PI's: N/A Carotid: N/A Mapping: N/A Dental: Completed PFT's: N/A Recent Labs 03/11/18 1028 03/11/18 1005 WBC -- 3.44* HB -- 14.7 HCT -- 45.8 PLT -- 269 INR -- 1.0 CREAT 0.70 0.80 UA: Normal HCG:N/A ABO/ABO Confirmed: Yes Blood ordered: No SA Swab: Yes - results: Pending Last Dose of Anticoagulation: none per patient Op Note: No Pacemaker Check: N/A Implants: no Consults: DM: No Cardiac Surgical prep: N/A patient encouraged to fill out advance directives and take to J1-1 to be scanned SIGNATURE: Ivory Cardoso RN CHECKED BY: [email or web address] DATE of SERVICE: 03/12/2018 TIME of SERVICE: 10:02 AM documented as of this encounter (statuses as of 02/05/2022) [facility] History of Past illness Narrative* Problem Noted Date Resolved Date Postoperative hypovolemia 03/13/20182017 Overview: A/p: IV fluid resuscitation for decreased BP Preop testing 03/12/2018 03/18/2018 [facility] Surgeon: Mariajose Blood M.D. Informed Consent Completed: Yes STS Score: 0.923 CAD: No Is intended procedure a CABG: No - is a beta hedy ordered? No - reason: NI H & P completed: Yes PA/LAT: N/A CT: Completed Dr Blood aware of CT scan results and no further consults or tests needed MRI: N/A LE US: N/A Cath: Yes - reviewed: Yes OSH on syngo Echo:Completed EKG: Completed EF %: 59 PI's: N/A Carotid: N/A Mapping: N/A Dental: Completed PFT's: N/A Recent Labs 03/11/18 1028 03/11/18 1005 WBC -- 3.44* HB -- 14.7 HCT -- 45.8 PLT -- 269 INR -- 1.0 CREAT 0.70 0.80 UA: Normal HCG:N/A ABO/ABO Confirmed: Yes Blood ordered: No SA Swab: Yes - results: Pending Last Dose of Anticoagulation: none per patient Op Note: No Pacemaker Check: N/A Implants: no Consults: DM: No Cardiac Surgical prep: N/A patient encouraged to fill out advance directives and take to J1-1 to be scanned SIGNATURE: Ivory Cardoso RN CHECKED BY: [email or web address] DATE of SERVICE: 03/12/2018 TIME of SERVICE: 10:02 AM documented as of this encounter (statuses as of 03/19/2022) [facility] History of Past illness Narrative* Problem Noted Date Resolved Date Postoperative hypovolemia 03/13/20182017 Overview: A/p: IV fluid resuscitation for decreased BP Preop testing 03/12/2018 03/18/2018 Overview: [facility] [place] PRE-OP CHECKLIST Surgeon: Mariajose Blood M.D. Informed Consent Completed: Yes STS Score: 0.923 CAD: No Is intended procedure a CABG: No - is a beta hedy ordered? No - reason: NI H & P completed: Yes PA/LAT: N/A CT: Completed Dr Blood aware of CT scan results and no further consults or tests needed MRI: N/A LE US: N/A Cath: Yes - reviewed: Yes OSH on syngo Echo:Completed EKG: Completed EF %: 59 PI's: N/A Carotid: N/A Mapping: N/A Dental: Completed PFT's: N/A Recent Labs 03/11/18 1028 03/11/18 1005 WBC -- 3.44* HB -- 14.7 HCT -- 45.8 PLT -- 269 INR -- 1.0 CREAT 0.70 0.80 UA: Normal HCG:N/A ABO/ABO Confirmed: Yes Blood ordered: No SA Swab: Yes - results: Pending Last Dose of Anticoagulation: none per patient Op Note: No Pacemaker Check: N/A Implants: no Consults: DM: No Cardiac Surgical prep: N/A patient encouraged to fill out advance directives and take to J1-1 to be scanned SIGNATURE: Ivory Cardoso RN CHECKED BY: [email or web address] DATE of SERVICE: 03/12/2018 TIME of SERVICE: 10:02 AM documented as of this encounter (statuses as of 03/22/2022) [facility] History of Past illness Narrative* Problem Noted Date Resolved Date Postoperative hypovolemia 03/13/20182017 Overview: A/p: IV fluid resuscitation for decreased BP Preop testing 03/12/2018 03/18/2018 [facility] Surgeon: Mariajose Blood M.D. Informed Consent Completed: Yes STS Score: 0.923 CAD: No Is intended procedure a CABG: No - is a beta hedy ordered? No - reason: NI H & P completed: Yes PA/LAT: N/A CT: Completed Dr Blood aware of CT scan results and no further consults or tests needed MRI: N/A LE US: N/A Cath: Yes - reviewed: Yes OSH on syngo Echo:Completed EKG: Completed EF %: 59 PI's: N/A Carotid: N/A Mapping: N/A Dental: Completed PFT's: N/A Recent Labs 03/11/18 1028 03/11/18 1005 WBC -- 3.44* HB -- 14.7 HCT -- 45.8 PLT -- 269 INR -- 1.0 CREAT 0.70 0.80 UA: Normal HCG:N/A ABO/ABO Confirmed: Yes Blood ordered: No SA Swab: Yes - results: Pending Last Dose of Anticoagulation: none per patient Op Note: No Pacemaker Check: N/A Implants: no Consults: DM: No Cardiac Surgical prep: N/A patient encouraged to fill out advance directives and take to J1-1 to be scanned SIGNATURE: Ivory Cardoso RN CHECKED BY: [email or web address] DATE of SERVICE: 03/12/2018 TIME of SERVICE: 10:02 AM documented as of this encounter (statuses as of 04/17/2022) [facility] History of Past illness Narrative* Problem Noted Date Resolved Date Postoperative hypovolemia 03/13/20182017 Overview: A/p: IV fluid resuscitation for decreased BP Preop testing 03/12/2018 03/18/2018 [facility] Surgeon: Mariajose Blood M.D. Informed Consent Completed: Yes STS Score: 0.923 CAD: No Is intended procedure a CABG: No - is a beta hedy ordered? No - reason: NI H & P completed: Yes PA/LAT: N/A CT: Completed Dr Blood aware of CT scan results and no further consults or tests needed MRI: N/A LE US: N/A Cath: Yes - reviewed: Yes OSH on syngo Echo:Completed EKG: Completed EF %: 59 PI's: N/A Carotid: N/A Mapping: N/A Dental: Completed PFT's: N/A Recent Labs 03/11/18 1028 03/11/18 1005 WBC -- 3.44* HB -- 14.7 HCT -- 45.8 PLT -- 269 INR -- 1.0 CREAT 0.70 0.80 UA: Normal HCG:N/A ABO/ABO Confirmed: Yes Blood ordered: No SA Swab: Yes - results: Pending Last Dose of Anticoagulation: none per patient Op Note: No Pacemaker Check: N/A Implants: no Consults: DM: No Cardiac Surgical prep: N/A patient encouraged to fill out advance directives and take to J1-1 to be scanned SIGNATURE: Ivory Cardoso RN CHECKED BY: [email or web address] DATE of SERVICE: 03/12/2018 TIME of SERVICE: 10:02 AM documented as of this encounter (statuses as of 04/18/2022) [facility] History of Past illness Narrative* Problem Noted Date Resolved Date Postoperative hypovolemia 03/13/20182017 Overview: A/p: IV fluid resuscitation for decreased BP Preop testing 03/12/2018 03/18/2018 [facility] Surgeon: Mariajose Blood M.D. Informed Consent Completed: Yes STS Score: 0.923 CAD: No Is intended procedure a CABG: No - is a beta hedy ordered? No - reason: NI H & P completed: Yes PA/LAT: N/A CT: Completed Dr Blood aware of CT scan results and no further consults or tests needed MRI: N/A LE US: N/A Cath: Yes - reviewed: Yes OSH on syngo Echo:Completed EKG: Completed EF %: 59 PI's: N/A Carotid: N/A Mapping: N/A Dental: Completed PFT's: N/A Recent Labs 03/11/18 1028 03/11/18 1005 WBC -- 3.44* HB -- 14.7 HCT -- 45.8 PLT -- 269 INR -- 1.0 CREAT 0.70 0.80 UA: Normal HCG:N/A ABO/ABO Confirmed: Yes Blood ordered: No SA Swab: Yes - results: Pending Last Dose of Anticoagulation: none per patient Op Note: No Pacemaker Check: N/A Implants: no Consults: DM: No Cardiac Surgical prep: N/A patient encouraged to fill out advance directives and take to J1-1 to be scanned SIGNATURE: Ivory Cardoso RN CHECKED BY: [email or web address] DATE of SERVICE: 03/12/2018 TIME of SERVICE: 10:02 AM documented as of this encounter (statuses as of 04/19/2022) [facility] History of Past illness Narrative* Problem Noted Date Resolved Date Postoperative hypovolemia 03/13/20182017 Overview: A/p: IV fluid resuscitation for decreased BP Preop testing 03/12/2018 03/18/2018 [facility] Surgeon: Mariajose Blood M.D. Informed Consent Completed: Yes STS Score: 0.923 CAD: No Is intended procedure a CABG: No - is a beta hedy ordered? No - reason: NI H & P completed: Yes PA/LAT: N/A CT: Completed Dr Blood aware of CT scan results and no further consults or tests needed MRI: N/A LE US: N/A Cath: Yes - reviewed: Yes OSH on syngo Echo:Completed EKG: Completed EF %: 59 PI's: N/A Carotid: N/A Mapping: N/A Dental: Completed PFT's: N/A Recent Labs 03/11/18 1028 03/11/18 1005 WBC -- 3.44* HB -- 14.7 HCT -- 45.8 PLT -- 269 INR -- 1.0 CREAT 0.70 0.80 UA: Normal HCG:N/A ABO/ABO Confirmed: Yes Blood ordered: No SA Swab: Yes - results: Pending Last Dose of Anticoagulation: none per patient Op Note: No Pacemaker Check: N/A Implants: no Consults: DM: No Cardiac Surgical prep: N/A patient encouraged to fill out advance directives and take to J1-1 to be scanned SIGNATURE: Ivory Cardoso RN CHECKED BY: [email or web address] DATE of SERVICE: 03/12/2018 TIME of SERVICE: 10:02 AM documented as of this encounter (statuses as of 04/19/2022) [facility] History of Past illness Narrative* Problem Noted Date Resolved Date Postoperative hypovolemia 03/13/20182017 Overview: A/p: IV fluid resuscitation for decreased BP Preop testing 03/12/2018 03/18/2018 [facility] Surgeon: Mariajose Blood M.D. Informed Consent Completed: Yes STS Score: 0.923 CAD: No Is intended procedure a CABG: No - is a beta hedy ordered? No - reason: NI H & P completed: Yes PA/LAT: N/A CT: Completed Dr Blood aware of CT scan results and no further consults or tests needed MRI: N/A LE US: N/A Cath: Yes - reviewed: Yes OSH on syngo Echo:Completed EKG: Completed EF %: 59 PI's: N/A Carotid: N/A Mapping: N/A Dental: Completed PFT's: N/A Recent Labs 03/11/18 1028 03/11/18 1005 WBC -- 3.44* HB -- 14.7 HCT -- 45.8 PLT -- 269 INR -- 1.0 CREAT 0.70 0.80 UA: Normal HCG:N/A ABO/ABO Confirmed: Yes Blood ordered: No SA Swab: Yes - results: Pending Last Dose of Anticoagulation: none per patient Op Note: No Pacemaker Check: N/A Implants: no Consults: DM: No Cardiac Surgical prep: N/A patient encouraged to fill out advance directives and take to J1-1 to be scanned SIGNATURE: Ivory Cardoso RN CHECKED BY: [email or web address] DATE of SERVICE: 03/12/2018 TIME of SERVICE: 10:02 AM documented as of this encounter (statuses as of 04/22/2022) [facility] History of Past illness Narrative* Problem Noted Date Resolved Date Postoperative hypovolemia 03/13/20182017 Overview: A/p: IV fluid resuscitation for decreased BP Preop testing 03/12/2018 03/18/2018 Overview[facility] Surgeon: Mariaojse Blood M.D. Informed Consent Completed: Yes STS Score: 0.923 CAD: No Is intended procedure a CABG: No - is a beta hedy ordered? No - reason: NI H & P completed: Yes PA/LAT: N/A CT: Completed Dr Blood aware of CT scan results and no further consults or tests needed MRI: N/A LE US: N/A Cath: Yes - reviewed: Yes OSH on syngo Echo:Completed EKG: Completed EF %: 59 PI's: N/A Carotid: N/A Mapping: N/A Dental: Completed PFT's: N/A Recent Labs 03/11/18 1028 03/11/18 1005 WBC -- 3.44* HB -- 14.7 HCT -- 45.8 PLT -- 269 INR -- 1.0 CREAT 0.70 0.80 UA: Normal HCG:N/A ABO/ABO Confirmed: Yes Blood ordered: No SA Swab: Yes - results: Pending Last Dose of Anticoagulation: none per patient Op Note: No Pacemaker Check: N/A Implants: no Consults: DM: No Cardiac Surgical prep: N/A patient encouraged to fill out advance directives and take to J1-1 to be scanned SIGNATURE: Ivory Cardoso RN CHECKED BY: [email or web address] DATE of SERVICE: 03/12/2018 TIME of SERVICE: 10:02 AM documented as of this encounter (statuses as of 04/22/2022) [facility] History of Past illness Narrative* Problem Noted Date Resolved Date Postoperative hypovolemia 03/13/20182017 Overview: A/p: IV fluid resuscitation for decreased BP Preop testing 03/12/2018 03/18/2018 Overview: [facility] Surgeon: Mariajose Blood M.D. Informed Consent Completed: Yes STS Score: 0.923 CAD: No Is intended procedure a CABG: No - is a beta hedy ordered? No - reason: NI H & P completed: Yes PA/LAT: N/A CT: Completed Dr Blood aware of CT scan results and no further consults or tests needed MRI: N/A LE US: N/A Cath: Yes - reviewed: Yes OSH on syngo Echo:Completed EKG: Completed EF %: 59 PI's: N/A Carotid: N/A Mapping: N/A Dental: Completed PFT's: N/A Recent Labs 03/11/18 1028 03/11/18 1005 WBC -- 3.44* HB -- 14.7 HCT -- 45.8 PLT -- 269 INR -- 1.0 CREAT 0.70 0.80 UA: Normal HCG:N/A ABO/ABO Confirmed: Yes Blood ordered: No SA Swab: Yes - results: Pending Last Dose of Anticoagulation: none per patient Op Note: No Pacemaker Check: N/A Implants: no Consults: DM: No Cardiac Surgical prep: N/A patient encouraged to fill out advance directives and take to J1-1 to be scanned SIGNATURE: Ivory Cardoso RN CHECKED BY: [email or web address] DATE of SERVICE: 03/12/2018 TIME of SERVICE: 10:02 AM documented as of this encounter (statuses as of 04/22/2022) [facility] History of Past illness Narrative* Problem Noted Date Resolved Date Postoperative hypovolemia 03/13/20182017 Overview: A/p: IV fluid resuscitation for decreased BP Preop testing 03/12/2018 03/18/2018 Overview: [facility] Surgeon: Mariajose Blood M.D. Informed Consent Completed: Yes STS Score: 0.923 CAD: No Is intended procedure a CABG: No - is a beta hedy ordered? No - reason: NI H & P completed: Yes PA/LAT: N/A CT: Completed Dr Blood aware of CT scan results and no further consults or tests needed MRI: N/A LE US: N/A Cath: Yes - reviewed: Yes OSH on syngo Echo:Completed EKG: Completed EF %: 59 PI's: N/A Carotid: N/A Mapping: N/A Dental: Completed PFT's: N/A Recent Labs 03/11/18 1028 03/11/18 1005 WBC -- 3.44* HB -- 14.7 HCT -- 45.8 PLT -- 269 INR -- 1.0 CREAT 0.70 0.80 UA: Normal HCG:N/A ABO/ABO Confirmed: Yes Blood ordered: No SA Swab: Yes - results: Pending Last Dose of Anticoagulation: none per patient Op Note: No Pacemaker Check: N/A Implants: no Consults: DM: No Cardiac Surgical prep: N/A patient encouraged to fill out advance directives and take to J1-1 to be scanned SIGNATURE: Ivory Cardoso RN CHECKED BY: [email or web address] DATE of SERVICE: 03/12/2018 TIME of SERVICE: 10:02 AM documented as of this encounter (statuses as of 04/23/2022) [facility] History of Past illness Narrative* Problem Noted Date Resolved Date Postoperative hypovolemia 03/13/20182017 Overview: A/p: IV fluid resuscitation for decreased BP Preop testing 03/12/2018 03/18/2018 Overview: [facility] Surgeon: Mariajose Blood M.D. Informed Consent Completed: Yes STS Score: 0.923 CAD: No Is intended procedure a CABG: No - is a beta hedy ordered? No - reason: NI H & P completed: Yes PA/LAT: N/A CT: Completed Dr Blood aware of CT scan results and no further consults or tests needed MRI: N/A LE US: N/A Cath: Yes - reviewed: Yes OSH on syngo Echo:Completed EKG: Completed EF %: 59 PI's: N/A Carotid: N/A Mapping: N/A Dental: Completed PFT's: N/A Recent Labs 03/11/18 1028 03/11/18 1005 WBC -- 3.44* HB -- 14.7 HCT -- 45.8 PLT -- 269 INR -- 1.0 CREAT 0.70 0.80 UA: Normal HCG:N/A ABO/ABO Confirmed: Yes Blood ordered: No SA Swab: Yes - results: Pending Last Dose of Anticoagulation: none per patient Op Note: No Pacemaker Check: N/A Implants: no Consults: DM: No Cardiac Surgical prep: N/A patient encouraged to fill out advance directives and take to J1-1 to be scanned SIGNATURE: Ivory Cardoso RN CHECKED BY: [email or web address] DATE of SERVICE: 03/12/2018 TIME of SERVICE: 10:02 AM documented as of this encounter (statuses as of 04/23/2022) [facility] History general Narrative - Reported* Type Description Date Medical History SOB/seeing [facility] Surgical History hysterectomy Surgical History GROWTH REMOVAL VOCAL CORD Surgical History Cardiac Cath 01/07/2018 Surgical History Open heart surgery-AORTIC BOVIN E VALVE REPLACEMENT 03/13/2018 Hospitalization History See above [facility] Other 04-04-2018 History general Narrative - Reported* Type Description Date Medical History SOB/seeing [facility] Surgical History hysterectomy Surgical History GROWTH REMOVAL VOCAL CORD Surgical History Cardiac Cath 01/07/2018 Surgical History Open heart surgery-AORTIC BOVIN E VALVE REPLACEMENT 03/13/2018 Hospitalization History See above Hospitalization History 3 DAYS [facility] 10/06/21 [facility] Other 04-04-2018 History general Narrative - Reported* Type Description Date Medical History SOB/seeing [facility] Surgical History hysterectomy Surgical History GROWTH REMOVAL VOCAL CORD Surgical History Cardiac Cath 01/07/2018 Surgical History Open heart surgery-AORTIC BOVIN E VALVE REPLACEMENT 03/13/2018 Surgical History GIST PROCEDURE 04/24/2022 Hospitalization History See above Hospitalization History 3 DAYS PRAVEEN DOWDUS PNEU MONIA 10/06/21 [employer] Other Evaluation + Plan note No data available for this section [facility] note* Diagnosis 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 Normocytic anemia Anemia, unspecified [facility] Diagnosis 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 [facility] Diagnosis 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 Syncope and collapse Nausea Nausea alone documented in this encounter [facility] Other Evaluation note* Diagnosis 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) [facility] Diagnosis S/P TAVR (transcatheter aortic valve replacement)- Primary Heart valve replaced by other means History of aortic valve replacement Heart valve replaced by other means 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) [facility] 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 [facility] Diagnosis Diarrhea due to malabsorption- Primary Personal history of other diseases of digestive system S/P subtotal gastrectomy Other postprocedural status [facility] Diagnosis History of gastrointestinal stromal tumor (GIST)- Primary [facility] Diagnosis Malignant neoplasm of stomach, unspecified location (HCC) Polyclonal gammopathy Polyclonal hypergammaglobulinemia [facility] noteNo assessment [facility] Work Phone: Evaluation note* Diagnosis 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 Moderate protein-calorie malnutrition (HCC) Malnutrition of moderate degree [facility] Diagnosis 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 [facility] Diagnosis History of gastrointestinal stromal tumor (GIST)- Primary S/P gastrectomy Other postprocedural status 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) Malignant neoplasm of fundus of stomach Postsurgical malabsorption, not elsewhere classified Nutritional anemia, unspecified [facility] Diagnosis Hypoglycemia after GI (gastrointestinal) surgery- Primary Other and unspecified postsurgical nonabsorption S/P gastrectomy Other postprocedural status [facility] Diagnosis 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 [facility] Diagnosis Elevated blood protein- Primary Other disorders of plasma protein metabolism Lung nodules Other nonspecific abnormal finding of lung field 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 [facility]* Diagnosis 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 Monoclonal gammopathy Monoclonal paraproteinemia [facility] Diagnosis 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 Elevated blood protein Other disorders of plasma protein metabolism Megaloblastic anemia due to vitamin B12 deficiency Other vitamin B12 deficiency anemia Malignant neoplasm of stomach, unspecified location (HCC) Interstitial pulmonary disease (HCC) Postinflammatory pulmonary fibrosis Moderate protein-calorie malnutrition (HCC) Malnutrition of moderate degree [facility] Diagnosis S/P TAVR (transcatheter aortic valve replacement)- Primary Heart valve replaced by other means History of aortic valve replacement Heart valve replaced by other means [facility] Diagnosis 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 [facility]* Diagnosis S/P gastrectomy Other postprocedural status Hypoglycemia after GI (gastrointestinal) surgery Other and unspecified postsurgical nonabsorption [facility] Diagnosis S/P TAVR (transcatheter aortic valve replacement)- Primary Heart valve replaced by other means History of aortic valve replacement Heart valve replaced by other means Encounter for preprocedural cardiovascular examination Pre-operative cardiovascular examination Severe aortic stenosis Aortic valve disorders [facility] Diagnosis Encounter for preprocedural cardiovascular examination Pre-operative cardiovascular examination Severe aortic stenosis Aortic valve disorders [facility] Diagnosis 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 [facility] Diagnosis S/P TAVR (transcatheter aortic valve replacement)- Primary Heart valve replaced by other means History of aortic valve replacement Heart valve replaced by other means [facility] Diagnosis Hypoglycemia after GI (gastrointestinal) surgery- Primary Other and unspecified postsurgical nonabsorption S/P subtotal gastrectomy Other postprocedural status Postoperative malabsorption Other and unspecified postsurgical nonabsorption History of gastrointestinal stromal tumor (GIST) documented in this encounter [facility] Discharge instructions Additional Instructions Use Bentyl for abdominal cramping, you can use Tylenol and ibuprofen for pain, you can also try lidocaine patches to your abdomen. Avoid spicy foods, greasy foods, fast foods, and excessive sugar. Stay well-hydrated Return for worsening abdominal pain, blood in your stool, fevers, vomiting [facility] Work Phone: Progress note No data available for this section [facility] Outpatient Procedure (Routine) - Pending Review Specialty Diagnoses / Procedures Referred By Contac t Referred To Contact [facility] Diagnoses S/P TAVR (transcatheter aortic valve replacement) History of aortic valve replacement Procedures ECHO ECHO TTHRC R-T 2D W/WOM-MODE COMPL SPEC&COLR D Toña Garcia MD [place] [id number] [facility] [place] [phone] Referral ID Status Reason Start Date Expiration Date Visits Requested Visits Authorized [id number] Pending Review Auto-Generat ed Referral 04/23/2022 04/23/2023 1 1 [facility] for referral (narrative)* Outpatient Procedure (Routine) - Authorized Specialty Diagnoses / Procedures Referred By Contac t Referred To Contact [facility] Diagnoses S/P TAVR (transcatheter aortic valve replacement) History of aortic valve replacement Procedures ECHO ECHO TTHRC R-T 2D W/WOM-MODE COMPL SPEC&COLR D Toña Garcia MD [place] [phone] [place] [address] Referral ID Status Reason Start Date Expiration Date Visits Requested Visits Authorized [id number] Authorized Auto-Generat ed Referral 03/19/2023 03/18/2024 1 1 T [facility] for referral (narrative)* Outpatient Procedure (Routine) - Pending Review Specialty Diagnoses / Procedures Referred By Contac t Referred To Contact [facility] Diagnoses S/P TAVR (transcatheter aortic valve replacement) History of aortic valve replacement Procedures ECHO WITH AGITATED SALINE CONTRAST ECHO TRANSTHORAC R-T 2D W/WO M-MODE REC COMP Toña Garcia MD [address] [address] [place] [address] Referral ID Status Reason Start Date Expiration Date Visits Requested Visits Authorized [id number] Pending Review Auto-Generat ed Referral 12/19/2023 12/18/2024 1 1 [facility] Reason for Referral Status Reason Specialty Diagnoses / Procedures Referre d By Contact Referred To Contact Closed Radiology Diagnoses Atypical pneumonia Postinflammatory pulmonary fibrosis (HCC) Procedures CT CHEST HIGH RESOLUTION Lucho Jauregui MD [facility]0 [facility] [address] [place] [id number] Status Reason Specialty Diagnoses / Procedures Re ferred By Contact Referred To Contact Pending Review Diagnoses Bronchiectasis with acute exacerbation (HCC) Postinflammatory pulmonary fibrosis (HCC) Procedures Full PFT Study With Bronchodilator Lucho Jauregui MD [address] [facility] [address] [place] [id number] Specialty Diagnoses / Procedures Referred By Contac t Referred To Contact CT IMAGING Diagnoses 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 [address] Ct Imaging Referral ID Status Reason Start Date Expiration Date Visits Requested Visits Authorized [id number] Authorized Auto-Generat ed Referral 03/19/2022 04/18/2023 1 1 Specialty Diagnoses / Procedures Referred By Contac t Referred To Contact CT IMAGING Diagnoses Syncope and collapse Procedures CT BRAIN WO IVCON CT HEAD/BRAIN W/O CONTRAST MATERIAL Rome Barboza MD [address] [place] [address] [place] [address] Ct Imaging Referral ID Status Reason Start Date Expiration Date Visits Requested Visits Authorized [id number] Authorized Auto-Generat ed Referral 03/19/2022 04/18/2023 1 1 Specialty Diagnoses / Procedures Referred By Contac t Referred To Contact CT IMAGING Diagnoses Malignant neoplasm of stomach, unspecified location (HCC) Procedures CT CHEST W IVCON DIAGNOSTIC COMPUTED TOMOGRAPHY THORAX W/CONTRAST Eric Sol MD [address] [place] [address] [place] [address] Ct Imaging Referral ID Status Reason Start Date Expiration Date Visits Requested Visits Authorized [id number] Authorized Auto-Generat ed Referral 06/21/2023 1 1 Specialty Diagnoses / Procedures Referred By Contac t Referred To Contact CT IMAGING Diagnoses Malignant neoplasm of stomach, unspecified location (HCC) Procedures CT ABD/PEL W IVCON CT ABD & PELVIS W/CONTRAST Eric Sol MD [address] [place] [address] [place] [address] Ct Imaging Referral ID Status Reason Start Date Expiration Date Visits Requested Visits Authorized [id number] Authorized Auto-Generat ed Referral 2 06/21/2023 1 1 Specialty Diagnoses / Procedures Referred By Contac t Referred To Contact CT IMAGING Diagnoses 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 CT ABD/PEL W IVCON CT ABD & PELVIS W/CONTRAST Eric Sol MD [address] [facility] [place] [address] Ct Imaging Referral ID Status Reason Start Date Expiration Date Visits Requested Visits Authorized [id number] Pending Review Auto-Generat ed Referral 11/04/2022 09/03/2023 1 1 Specialty Diagnoses / Procedures Referred By Contac t Referred To Contact Endocrinology Diagnoses S/P gastrectomy Hypoglycemia after GI (gastrointestinal) surgery Procedures CONSULT TO ENDOCRINOLOGY OFFICE/OUTPATIENT [facility] MDM 60-74 MINUTES Cailin Howard, JACY.FUNNEL SETTER [address] [facility] [place] [address] Referral ID Status Reason Start Date Expiration Date Visits Requested Visits Authorized [id number] Authorized PCP Requested Referral 2 08/22/2023 1 1 Specialty Diagnoses / Procedures Referred By Contac t Referred To Contact CT IMAGING Diagnoses 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 CT CHEST W IVCON DIAGNOSTIC COMPUTED TOMOGRAPHY THORAX W/CONTRAST Eric Sol MD [facility] [place] [address] Ct Imaging Referral ID Status Reason Start Date Expiration Date Visits Requested Visits Authorized [id number] Authorized Auto-Generat ed Referral 11/04/2022 11/03/2023 1 1 Specialty Diagnoses / Procedures Referred By Contac t Referred To Contact CT IMAGING Diagnoses Elevated blood protein Lung nodules 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 Procedures CT CHEST W IVCON DIAGNOSTIC COMPUTED TOMOGRAPHY THORAX W/CONTRAST Eric Sol MD [address] [place] [address] [place] [address] Ct Imaging Referral ID Status Reason Start Date Expiration Date Visits Requested Visits Authorized [id number] Authorized Auto-Generat ed Referral 03/11/2023 12/11/2023 1 1 Specialty Diagnoses / Procedures Referred By Contac t Referred To Contact CT IMAGING Diagnoses Elevated blood protein Lung nodules 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 Procedures CT ABD/PEL W IVCON CT ABD & PELVIS W/CONTRAST Eric Sol MD [address] [place] [address] [place] [address] Ct Imaging Referral ID Status Reason Start Date Expiration Date Visits Requested Visits Authorized [id number] Authorized Auto-Generat ed Referral 03/11/2023 12/11/2023 1 1 Specialty Diagnoses / Procedures Referred By Contac t Referred To Contact CT IMAGING Diagnoses Interstitial pulmonary disease (HCC) Procedures CT CHEST W IVCON DIAGNOSTIC COMPUTED TOMOGRAPHY THORAX W/CONTRAST Eric Sol MD [address] [place] [address] [place] [address] Ct Imaging Referral ID Status Reason Start Date Expiration Date Visits Requested Visits Authorized [id number] Authorized Auto-Generat ed Referral 3 04/15/2024 1 1 Referral ID Status Reason Start Date Expiration Date Visits Requested Visits Authorized [id number] Authorized Auto-Generat ed Referral 3 04/15/2024 1 1 Specialty Diagnoses / Procedures Referred By Contac t Referred To Contact CT IMAGING Diagnoses Encounter for preprocedural cardiovascular examination Severe aortic stenosis Procedures CTA CHEST/ABD/PEL (GATED) W IVCON CT ANGIOGRAPHY CHEST W/CONTRAST/NONCONTRAST CT ANGIO ABD&PLVIS CNTRST MTRL W/WO CNTRST Toña Bird MD [facility] [address] [place] [address] [place] [address] Referral ID Status Reason Start Date Expiration Date Visits Requested Visits Authorized [id number] Authorized Auto-Generat ed Referral 3 09/27/2024 1 1 Assessments Diagnosis Atypical pneumonia Pneumonia, organism unspecified 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 Diagnosis Bronchiectasis with acute exacerbation (HCC) Bronchiectasis with acute exacerbation 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 Summary Purpose Family History No Family History Records Found Relationship Condition Age at Onset Recorded Date/T saurabh father Unknown Malignant neoplasm Unknown Malignant neoplasm of liver Unknown Not Specified Heart disease Unknown Advance Directives No Advanced Directives Records FoundDocuments on File Type Date Recorded 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 Advance Directive(s) 11/16/2021 12:08 PM Advance Directive(s) 11/01/2021 4:53 PM Advance Directive(s) 08/20/2021 10:52 AM Advance Directive(s) 08/06/2021 3:39 PM Advance Directive(s) 03/12/2018 9:23 AM Documents on File Type Date Recorded 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 Advance Directive(s) 11/16/2021 12:08 PM Advance Directive(s) 11/01/2021 4:53 PM Advance Directive(s) 08/20/2021 10:52 AM Advance Directive(s) 08/06/2021 3:39 PM Advance Directive(s) 03/12/2018 9:23 AM Documents on File Type Date Recorded 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 Advance Directive(s) 04/17/2022 4:38 PM FA IRVIEW Advance Directive(s) 11/16/2021 12:08 PM Advance Directive(s) 11/01/2021 4:53 PM Advance Directive(s) 08/20/2021 10:52 AM Advance Directive(s) 08/06/2021 3:39 PM Advance Directive(s) 03/12/2018 9:23 AM Documents on File Type Date Recorded 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 Advance Directive(s) 04/17/2022 4:38 PM FA IRVIEW Advance Directive(s) 11/16/2021 12:08 PM Advance Directive(s) 11/01/2021 4:53 PM Advance Directive(s) 08/20/2021 10:52 AM Advance Directive(s) 08/06/2021 3:39 PM Advance Directive(s) 03/12/2018 9:23 AM Advance Directive Response Recorded Date/ Time Advance Directives No September 12:05pm Advance Directive Response Recorded Date/ Time Advance Directives No September 11:05am Chief Complaint and Reason for Visit Chief Complaint abd pain Chief Complaint z79.52;SLE Chief Complaint HEMOLYTIC ANEMIA, SL E Chief Complaint m35.9 Z79.899 d89.2 proteinuria Additional Source Comments Reason for Visit (unrecogniz ed section and content) Status Reason Specialty Diagnoses / Procedures Referre d By Contact Referred To Contact Closed Radiology Diagnoses Atypical pneumonia Postinflammatory pulmonary fibrosis (HCC) Procedures CT CHEST HIGH RESOLUTION Lucho Jauregui MD [address] [place] [phone] Status Reason Specialty Diagnoses / Procedures Re ferred By Contact Referred To Contact Pending Review Diagnoses Bronchiectasis with acute exacerbation (HCC) Postinflammatory pulmonary fibrosis (HCC) Procedures Full PFT Study With Bronchodilator Lucho Jauregui MD [address] [address] Reason Comments GIST 3 week follow up Reason Comments Life [employer] Paperwork Reason Comments GIST 1 month follow up Reason Comments GIST 4 week follow up Reason Comments Care Coordination CT brain results Reason Comments Appointment Reason Comments Education Of Patient/family Reason Comments Patient Question Reason Comments Pre-Op Visit Reason Comments PreOp Call Reason Comments Results Orders Reason Comments concern about lovenox injection Reason Comments Diarrhea Reason Comments Post Op Reason Comments GIST Reason Comments Cancer Claims Reason Comments stomach cancer Reason Comments Established Patient Reason Comments Post Op Follow Up Reason Comments Orders CT Reason Comments Malignant Gastrointestinal stromal tumor of stomach 3 month follow up Reason Comments Nurse Triage Call Results Reason Comments Research IRB [id number] Case11 z15 Informed Consent Reason Comments Malignant gastrointestinal stromal tumor (GIST) of stomach Elevated blood protein Reason Comments 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 Multiple Myelom a Concerns Reason Comments Patient Update Appointment Reason Comments Appointment Rescheduled Reason Comments Low Blood Sugar Specialty Diagnoses / Procedures Referred By Contricardo t Referred To Contact Endocrinology Diagnoses S/P gastrectomy Hypoglycemia after GI (gastrointestinal) surgery Procedures CONSULT TO ENDOCRINOLOGY OFFICE/OUTPATIENT NEW HIGH MDM 60-74 MINUTES Cailin Howard APRN.FUNNEL SETTER [address] [place] [address] Referral ID Status Reason Start Date Expiration Date V isits Requested Visits Authorized [id number] Closed PCP Requested Referral 08/22/2022 08/22/2023 [address] Specialty Diagnoses / Procedures Referred By Contac t Referred To Contact CT IMAGING Diagnoses Encounter for preprocedural cardiovascular examination Severe aortic stenosis Procedures CTA CHEST/ABD/PEL (GATED) W IVCON CT ANGIOGRAPHY CHEST W/CONTRAST/NONCONTRAST CT ANGIO ABD&PLVIS CNTRST MTRL W/WO CNTRST Toña Bird MD [facility] [address] [place] [id number] [place] [address] Referral ID Status Reason Start Date Expiration Date V isits Requested Visits Authorized [id number] Closed Auto-Generate d Referral 08/29/2023 09/27/2024 1 1 Reason Comments Nutrition Assessment Reason Comments Valvular Heart Disease Reason Comments Medication Question Reason Comments Low Blood Sugar Follow Up INFORMATION SOURCE (unrecogn ized section and content) DATE CREATED AUTHOR 07/27/2020 [facility] DATE CREATED AUTHOR [facility]S ORGANIZ ATION [facility] DATE CREATED AUTHOR AUTHOR'S ORGANIZ ATION 10/18/2021 [facility] DATE CREATED AUTHOR AUTHOR'S ORGANIZ ATION 05/20/2022 [facility] DATE CREATED AUTHOR AUTHOR'S ORGANIZ ATION 06/01/2022 [facility] DATE CREATED AUTHOR AUTHOR'S ORGANIZ ATION 07/08/2022 [facility] DATE CREATED AUTHOR AUTHOR'S ORGANIZ ATION 01/08/2024 [facility] DATE CREATED AUTHOR AUTHOR'S ORGANIZ ATION 01/13/2024 [facility] Source Comments (unrecognize d section and content) In the event this informatio n is protected by the Federal Confidentiality of Alcohol and Drug Abuse Patient Records regulations: The Federal rules restrict any use of the information to criminally investigate or prosecute any alcohol or drug abuse patient.[facility] the event this information is protected by the Federal Confidentiality of Alcohol and Drug Abuse Patient Records regulations: The Federal rules restrict any use of the information to criminally investigate or prosecute any alcohol or drug abuse patient.[facility] System[facility] the event this information is protected by the Federal Confidentiality of Alcohol and Drug Abuse Patient Records regulations: The Federal rules restrict any use of the information to criminally investigate or prosecute any alcohol or drug abuse patient.[facility] System[facility] the event this information is protected by the Federal Confidentiality of Alcohol and Drug Abuse Patient Records regulations: The Federal rules restrict any use of the information to criminally investigate or prosecute any alcohol or drug abuse patient.[facility] SystemIn the event this information is protected by the Federal Confidentiality of Alcohol and Drug Abuse Patient Records regulations: The Federal rules restrict any use of the information to criminally investigate or prosecute any alcohol or drug abuse patient.[facility] SystemIn the event this information is protected by the Federal Confidentiality of Alcohol and Drug Abuse Patient Records regulations: The Federal rules restrict any use of the information to criminally investigate or prosecute any alcohol or drug abuse patient.[facility] SystemIn the event this information is protected by the Federal Confidentiality of Alcohol and Drug Abuse Patient Records regulations: The Federal rules restrict any use of the information to criminally investigate or prosecute any alcohol or drug abuse patient.[facility] SystemIn the event this information is protected by the Federal Confidentiality of Alcohol and Drug Abuse Patient Records regulations: The Federal rules restrict any use of the information to criminally investigate or prosecute any alcohol or drug abuse patient.[facility] SystemIn the event this information is protected by the Federal Confidentiality of Alcohol and Drug Abuse Patient Records regulations: The Federal rules restrict any use of the information to criminally investigate or prosecute any alcohol or drug abuse patient.[facility] SystemIn the event this information is protected by the Federal Confidentiality of Alcohol and Drug Abuse Patient Records regulations: The Federal rules restrict any use of the information to criminally investigate or prosecute any alcohol or drug abuse patient.[facility] SystemIn the event this information is protected by the Federal Confidentiality of Alcohol and Drug Abuse Patient Records regulations: The Federal rules restrict any use of the information to criminally investigate or prosecute any alcohol or drug abuse patient.[facility] SystemIn the event this information is protected by the Federal Confidentiality of Alcohol and Drug Abuse Patient Records regulations: The Federal rules restrict any use of the information to criminally investigate or prosecute any alcohol or drug abuse patient.[facility] SystemIn the event this information is protected by the Federal Confidentiality of Alcohol and Drug Abuse Patient Records regulations: The Federal rules restrict any use of the information to criminally investigate or prosecute any alcohol or drug abuse patient.[facility] SystemIn the event this information is protected by the Federal Confidentiality of Alcohol and Drug Abuse Patient Records regulations: The Federal rules restrict any use of the information to criminally investigate or prosecute any alcohol or drug abuse patient.[facility] SystemIn the event this information is protected by the Federal Confidentiality of Alcohol and Drug Abuse Patient Records regulations: The Federal rules restrict any use of the information to criminally investigate or prosecute any alcohol or drug abuse patient.[facility] SystemIn the event this information is protected by the Federal Confidentiality of Alcohol and Drug Abuse Patient Records regulations: The Federal rules restrict any use of the information to criminally investigate or prosecute any alcohol or drug abuse patient.[facility] SystemIn the event this information is protected by the Federal Confidentiality of Alcohol and Drug Abuse Patient Records regulations: The Federal rules restrict any use of the information to criminally investigate or prosecute any alcohol or drug abuse patient.[facility] SystemIn the event this information is protected by the Federal Confidentiality of Alcohol and Drug Abuse Patient Records regulations: The Federal rules restrict any use of the information to criminally investigate or prosecute any alcohol or drug abuse patient.[facility] SystemIn the event this information is protected by the Federal Confidentiality of Alcohol and Drug Abuse Patient Records regulations: The Federal rules restrict any use of the information to criminally investigate or prosecute any alcohol or drug abuse patient.[facility] SystemIn the event this information is protected by the Federal Confidentiality of Alcohol and Drug Abuse Patient Records regulations: The Federal rules restrict any use of the information to criminally investigate or prosecute any alcohol or drug abuse patient.[facility] SystemIn the event this information is protected by the Federal Confidentiality of Alcohol and Drug Abuse Patient Records regulations: The Federal rules restrict any use of the information to criminally investigate or prosecute any alcohol or drug abuse patient.[facility] SystemIn the event this information is protected by the Federal Confidentiality of Alcohol and Drug Abuse Patient Records regulations: The Federal rules restrict any use of the information to criminally investigate or prosecute any alcohol or drug abuse patient.[facility] SystemIn the event this information is protected by the Federal Confidentiality of Alcohol and Drug Abuse Patient Records regulations: The Federal rules restrict any use of the information to criminally investigate or prosecute any alcohol or drug abuse patient.[facility] SystemIn the event this information is protected by the Federal Confidentiality of Alcohol and Drug Abuse Patient Records regulations: The Federal rules restrict any use of the information to criminally investigate or prosecute any alcohol or drug abuse patient.[facility] SystemIn the event this information is protected by the Federal Confidentiality of Alcohol and Drug Abuse Patient Records regulations: The Federal rules restrict any use of the information to criminally investigate or prosecute any alcohol or drug abuse patient.[facility] SystemIn the event this information is protected by the Federal Confidentiality of Alcohol and Drug Abuse Patient Records regulations: The Federal rules restrict any use of the information to criminally investigate or prosecute any alcohol or drug abuse patient.[facility] SystemIn the event this information is protected by the Federal Confidentiality of Alcohol and Drug Abuse Patient Records regulations: The Federal rules restrict any use of the information to criminally investigate or prosecute any alcohol or drug abuse patient.[facility] SystemIn the event this information is protected by the Federal Confidentiality of Alcohol and Drug Abuse Patient Records regulations: The Federal rules restrict any use of the information to criminally investigate or prosecute any alcohol or drug abuse patient.[facility] SystemIn the event this information is protected by the Federal Confidentiality of Alcohol and Drug Abuse Patient Records regulations: The Federal rules restrict any use of the information to criminally investigate or prosecute any alcohol or drug abuse patient.[facility] SystemIn the event this information is protected by the Federal Confidentiality of Alcohol and Drug Abuse Patient Records regulations: The Federal rules restrict any use of the information to criminally investigate or prosecute any alcohol or drug abuse patient.[facility] SystemIn the event this information is protected by the Federal Confidentiality of Alcohol and Drug Abuse Patient Records regulations: The Federal rules restrict any use of the information to criminally investigate or prosecute any alcohol or drug abuse patient.[facility] SystemIn the event this information is protected by the Federal Confidentiality of Alcohol and Drug Abuse Patient Records regulations: The Federal rules restrict any use of the information to criminally investigate or prosecute any alcohol or drug abuse patient.[facility] SystemIn the event this information is protected by the Federal Confidentiality of Alcohol and Drug Abuse Patient Records regulations: The Federal rules restrict any use of the information to criminally investigate or prosecute any alcohol or drug abuse patient.[facility] SystemIn the event this information is protected by the Federal Confidentiality of Alcohol and Drug Abuse Patient Records regulations: The Federal rules restrict any use of the information to criminally investigate or prosecute any alcohol or drug abuse patient.[facility] SystemIn the event this information is protected by the Federal Confidentiality of Alcohol and Drug Abuse Patient Records regulations: The Federal rules restrict any use of the information to criminally investigate or prosecute any alcohol or drug abuse patient.[facility] SystemIn the event this information is protected by the Federal Confidentiality of Alcohol and Drug Abuse Patient Records regulations: The Federal rules restrict any use of the information to criminally investigate or prosecute any alcohol or drug abuse patient.[facility] SystemIn the event this information is protected by the Federal Confidentiality of Alcohol and Drug Abuse Patient Records regulations: The Federal rules restrict any use of the information to criminally investigate or prosecute any alcohol or drug abuse patient.[facility] SystemIn the event this information is protected by the Federal Confidentiality of Alcohol and Drug Abuse Patient Records regulations: The Federal rules restrict any use of the information to criminally investigate or prosecute any alcohol or drug abuse patient.[facility] SystemIn the event this information is protected by the Federal Confidentiality of Alcohol and Drug Abuse Patient Records regulations: The Federal rules restrict any use of the information to criminally investigate or prosecute any alcohol or drug abuse patient.[facility] SystemIn the event this information is protected by the Federal Confidentiality of Alcohol and Drug Abuse Patient Records regulations: The Federal rules restrict any use of the information to criminally investigate or prosecute any alcohol or drug abuse patient.[facility] SystemIn the event this information is protected by the Federal Confidentiality of Alcohol and Drug Abuse Patient Records regulations: The Federal rules restrict any use of the information to criminally investigate or prosecute any alcohol or drug abuse patient.[facility] SystemIn the event this information is protected by the Federal Confidentiality of Alcohol and Drug Abuse Patient Records regulations: The Federal rules restrict any use of the information to criminally investigate or prosecute any alcohol or drug abuse patient.[facility] SystemIn the event this information is protected by the Federal Confidentiality of Alcohol and Drug Abuse Patient Records regulations: The Federal rules restrict any use of the information to criminally investigate or prosecute any alcohol or drug abuse patient.[facility] SystemIn the event this information is protected by the Federal Confidentiality of Alcohol and Drug Abuse Patient Records regulations: The Federal rules restrict any use of the information to criminally investigate or prosecute any alcohol or drug abuse patient.[facility] SystemIn the event this information is protected by the Federal Confidentiality of Alcohol and Drug Abuse Patient Records regulations: The Federal rules restrict any use of the information to criminally investigate or prosecute any alcohol or drug abuse patient.[facility] SystemIn the event this information is protected by the Federal Confidentiality of Alcohol and Drug Abuse Patient Records regulations: The Federal rules restrict any use of the information to criminally investigate or prosecute any alcohol or drug abuse patient.[facility] SystemIn the event this information is protected by the Federal Confidentiality of Alcohol and Drug Abuse Patient Records regulations: The Federal rules restrict any use of the information to criminally investigate or prosecute any alcohol or drug abuse patient.[facility] SystemIn the event this information is protected by the Federal Confidentiality of Alcohol and Drug Abuse Patient Records regulations: The Federal rules restrict any use of the information to criminally investigate or prosecute any alcohol or drug abuse patient.[facility] Care Teams (unrecognized sec tion and content) Team Status: Active Member Role Status Dates Vivi Liao MD Primary Care Provider Active Team Status: Inactive Member Role Status Dates Vivi Liao MD Primary Care Provider Active Kassie Arroyo MD Attending Provider Active Family Nurse Relationship Specialty Start Date End Date Vivi Liao MD [address] [place] [address] PCP - General Internal Medicine 01/23/18 Petey Vargas [address] [address] Physician Cardiology 03/11/18 Adan Campbell (Hist) Primary Staff Physician Cardiology 12/22/18 Rhiannon Maza RN [address] [facility] [place] [address] Specialty Field Installer Hematology/Oncology 12/13/21 Rome Barboza MD [address] [facility] [place] [address] Physician Hematology/Oncology 12/13/21 Brittany Hernandez PA-C [address] [facility] [place] [address] Physician Space Physicist Hematology/Oncology 12/13/21 Family Nurse Relationship Specialty Start Date End Date Vivi Liao MD [address] [place] [address] PCP - General Internal Medicine 01/23/18 Petey Raya [address] [phone] Physician Cardiology 03/11/18 Adan Campbell (Hist) Primary Staff Physician Cardiology 12/22/18 Rhiannon Maza, RN [address] [facility] [address] Specialty Field Installer Hematology/Oncology 12/13/21 Rome Barboza MD [address] [facility] [place] [address] Physician Hematology/Oncology 12/13/21 Brittany Hernandze, PA-C [address] [facility] [address] Physician Space Physicist Hematology/Oncology 12/13/21 Family Nurse Relationship Specialty Start Date End Date Vivi Liao MD [address] [place] [address] PCP - General Internal Medicine 01/23/18 Petey Raya [address] [address] Physician Cardiology 03/11/18 Adan Campbell (Hist) Primary Staff Physician Cardiology 12/22/18 Rhiannon Maza, FIFI [address] [facility] [address] Specialty Field Installer Hematology/Oncology 12/13/21 Rome Barboza MD [address] [facility] [place] [address] Physician Hematology/Oncology 12/13/21 Brittany Hernandez PA-C [address] [place] [address] Physician Space Physicist Hematology/Oncology 12/13/21 Family Nurse Relationship Specialty Start Date End Date Vivi Liao MD [address] [place] [address] PCP - General Internal Medicine 01/23/18 Petey Vargas [address] [phone] Physician Cardiology 03/11/18 Adan Campbell (Hist) Primary Staff Physician Cardiology 12/22/18 Rhiannon Maza RN [address] [place] [address] Specialty Field Installer Hematology/Oncology 12/13/21 Rmoe Barboza MD [address] [place] [address] Physician Hematology/Oncology 12/13/21 Brittany Hernandez PA-C [address] [place] [address] Physician Space Physicist Hematology/Oncology 12/13/21 Family Nurse Relationship Specialty Start Date End Date Vivi Liao MD [address] [place] [address] PCP - General Internal Medicine 01/23/18 Petey Vargas [address] [phone] Physician Cardiology 03/11/18 Adan Campbell (Hist) Primary Staff Physician Cardiology 12/22/18 Rhiannon Maza RN [address] [place] [address] Specialty Field Installer Hematology/Oncology 12/13/21 Rome Barboza MD [address] [facility] [place] [address] Physician Hematology/Oncology 12/13/21 Brittany Hernandez PA-C [address] [facility] [place] [address] Physician Space Physicist Hematology/Oncology 12/13/21 Family Nurse Relationship Specialty Start Date End Date Vivi Liao MD [address] [place] [address] PCP - General Internal Medicine 01/23/18 Petey Vargas [address] [address] Physician Cardiology 03/11/18 Adan Campbell (Hist) Primary Staff Physician Cardiology 12/22/18 Rhiannon Maza RN [address] [facility] [place] [address] Specialty Field Installer Hematology/Oncology 12/13/21 Rome Barboza MD [address] [facility] [place] [address] Physician Hematology/Oncology 12/13/21 Brittany Hernandez PA-C [address] [facility] [place] [address] Physician Space Physicist Hematology/Oncology 12/13/21 Family Nurse Relationship Specialty Start Date End Date Vivi Liao MD [address] [place] [address] PCP - General Internal Medicine 01/23/18 Petey Vargas [address] [address] Physician Cardiology 03/11/18 Adan Campbell (Hist) Primary Staff Physician Cardiology 12/22/18 Rhiannon Maza RN [address] [facility] [place] [address] Specialty Field Installer Hematology/Oncology 12/13/21 Rome Barboza MD [address] [facility] [place] [address] Physician Hematology/Oncology 12/13/21 Brittany Hernandez PA-C [address] [facility] [place] [address] Physician Space Physicist Hematology/Oncology 12/13/21 Family Nurse Relationship Specialty Start Date End Date Vivi Liao MD [address] [place] [address] PCP - General Internal Medicine 01/23/18 Petey Vargas [address] [address] Physician Cardiology 03/11/18 Adan Campbell (Hist) Primary Staff Physician Cardiology 12/22/18 Rhiannon Maza RN [address] [facility] [place] [address] Specialty Field Installer Hematology/Oncology 12/13/21 Rome Barboza MD [address] [facility] [place] [address] Physician Hematology/Oncology 12/13/21 Brittany Hernandez PA-C [address] [facility] [place] [address] Physician Space Physicist Hematology/Oncology 12/13/21 Family Nurse Relationship Specialty Start Date End Date Vivi Liao MD [address] [place] [address] PCP - General Internal Medicine 01/23/18 Petey Vargas [address] [address] Physician Cardiology 03/11/18 Adan Campbell (Hist) Primary Staff Physician Cardiology 12/22/18 Rhiannon Maza, RN [address] [place] [address] Specialty Field Installer Hematology/Oncology 12/13/21 Rome Barboza MD [address] [place] [address] Physician Hematology/Oncology 12/13/21 Brittany Hernandez PA-C [address] [place] [address] Physician Space Physicist Hematology/Oncology 12/13/21 Family Nurse Relationship Specialty Start Date End Date Vivi Liao MD [address] [place] [address] PCP - General Internal Medicine 01/23/18 Petey Vargas [address] [phone] Physician Cardiology 03/11/18 Adan Campbell (Hist) Primary Staff Physician Cardiology 12/22/18 Rhiannon Maza, RN [address] [place] [address] Specialty Field Installer Hematology/Oncology 12/13/21 Rome Barboza MD [address] [place] [id number] Physician Hematology/Oncology 12/13/21 Brittany Hernandez PA-C [address] [facility] [address] Physician Space Physicist Hematology/Oncology 12/13/21 Family Nurse Relationship Specialty Start Date End Date Vivi Liao MD [address] [place] [address] PCP - General Internal Medicine 01/23/18 Petey Vargas [address] [address] Physician Cardiology 03/11/18 Adan Campbell (Hist) Primary Staff Physician Cardiology 12/22/18 Rhiannon Maza, FIFI [address] [facility] [address] Specialty Field Installer Hematology/Oncology 12/13/21 Rome Barboza MD [address] [facility] [place] [address] Physician Hematology/Oncology 12/13/21 Brittany Hernandez PA-C [address] [facility] [address] Physician Space Physicist Hematology/Oncology 12/13/21 Family Nurse Relationship Specialty Start Date End Date Vivi Liao MD [address] [place] [address] PCP - General Internal Medicine 01/23/18 Petey Vargas [address] [address] Physician Cardiology 03/11/18 Adan Campbell (Hist) Primary Staff Physician Cardiology 12/22/18 Rhiannon Maza, RN [address] [facility] [place] [address] Specialty Field Installer Hematology/Oncology 12/13/21 Rome Barboza MD [address] [facility] [address] [facility] [facility] [place] [address] Physician Hematology/Oncology 12/13/21 Brittany Hernandez PA-C [address] [place] [address] [place] [address] Physician Space Physicist Hematology/Oncology 12/13/21 Family Nurse Relationship Specialty Start Date End Date Vivi Liao MD [address] [place] [address] PCP - General Internal Medicine 01/23/18 Petey Vargas [address] [address] Physician Cardiology 03/11/18 Adan Campbell (Hist) Primary Staff Physician Cardiology 12/22/18 Rhiannon Maza RN [address] [facility] [place] [address] Specialty Field Installer Hematology/Oncology 12/13/21 Rome Barboza MD [address] [facility] [facility] [address] [place] [address] Physician Hematology/Oncology 12/13/21 Brittany Hernandez PA-C [address] [facility] [place] [address] Physician Space Physicist Hematology/Oncology 12/13/21 Family Nurse Relationship Specialty Start Date End Date Vivi Liao MD [address] [place] [address] PCP - General Internal Medicine 01/23/18 Petey Raya [address] [phone] Physician Cardiology 03/11/18 Adan Campbell (Hist) Primary Staff Physician Cardiology 12/22/18 Rhiannon Maza, RN [address] [place] [address] Specialty Field Installer Hematology/Oncology 12/13/21 Rome Barboza MD [address] [facility] [place] [address] Physician Hematology/Oncology 12/13/21 Brittany Hernandez PA-C [address] [facility] [address] Physician Space Physicist Hematology/Oncology 12/13/21 Family Nurse Relationship Specialty Start Date End Date Vivi Liao MD [address] [place] [address] PCP - General Internal Medicine 01/23/18 Petey Raya [address] [phone] Physician Cardiology 03/11/18 Adan Campbell (Hist) Primary Staff Physician Cardiology 12/22/18 Rhiannon Maza RN [address] [facility] [address] Specialty Field Installer Hematology/Oncology 12/13/21 Rome Barboza MD [address] [place] [address] Physician Hematology/Oncology 12/13/21 Brittany Hernandez PA-C [address] [place] [address] Physician Space Physicist Hematology/Oncology 12/13/21 Family Nurse Relationship Specialty Start Date End Date Vivi Liao MD [address] [place] [address] PCP - General Internal Medicine 01/23/18 Petey Raya [address] [address] Physician Cardiology 03/11/18 Adan Campbell (Hist) Primary Staff Physician Cardiology 12/22/18 Rhiannon Maza, RN [address] [facility] [address] Specialty Field Installer Hematology/Oncology 12/13/21 Rome Barboza MD [address] [place] [address] Physician Hematology/Oncology 12/13/21 Brittany Hernandez PA-C [address] [facility] [address] Physician Space Physicist Hematology/Oncology 12/13/21 Family Nurse Relationship Specialty Start Date End Date Vivi Liao MD [address] [place] [address] PCP - General Internal Medicine 01/23/18 Petey Vargas [address] [address] Physician Cardiology 03/11/18 Adan Campbell (Hist) Primary Staff Physician Cardiology 12/22/18 Rhiannon Maza RN [address] [facility] [address] Specialty Field Installer Hematology/Oncology 12/13/21 Rome Barboza MD [address] [facility] [place] [address] Physician Hematology/Oncology 12/13/21 Brittany Hernandez PAAgC [address] [facility] [place] [address] Physician Space Physicist Hematology/Oncology 12/13/21 Family Nurse Relationship Specialty Start Date End Date Vivi Liao MD [address] [place] [address] PCP - General Internal Medicine 01/23/18 Petey Vargas [address] [address] [address] Physician Cardiology 03/11/18 Adan Campbell (Hist) Primary Staff Physician Cardiology 12/22/18 Eric Sol MD [address] [facility] [place] [address] Physician Hematology/Oncology 05/21/22 Tammie Gramajo APRN.[facility] [address] [place] [address] Nurse Practitioner Hematology/Oncology 05/21/22 Linette Davis, FIFI [address] [facility] [place] [address] Specialty Field Installer Hematology/Oncology 05/21/22 Family Nurse Relationship Specialty Start Date End Date Vivi Liao MD [address] [place] [address] PCP - General Internal Medicine 01/23/18 Petey Vargas [address] [address] Physician Cardiology 03/11/18 Adan Campbell (Hist) Primary Staff Physician Cardiology 12/22/18 Eric Sol MD [address] [facility] [place] [address] Physician Hematology/Oncology 05/21/22 Tammie Gramajo, SOFTWARE QUALITY ASSURANCE ANALYST.FUNNEL SETTER [address] [facility] [place] [address] Nurse Practitioner Hematology/Oncology 05/21/22 Linette Davis, FIFI [address] [facility] [place] [address] Specialty Field Installer Hematology/Oncology 05/21/22 Family Nurse Relationship Specialty Start Date End Date Vivi Liao MD [address] [place] [address] PCP - General Internal Medicine 01/23/18 Petey Vargas [address] [address] Physician Cardiology 03/11/18 Adan Campbell (Hist) Primary Staff Physician Cardiology 12/22/18 Eric Sol MD [address] [facility] [place] [address] Physician Hematology/Oncology 05/21/22 Tammie Gramajo, SOFTWARE QUALITY ASSURANCE ANALYST.FUNNEL SETTER [address] [facility] [place] [address] Nurse Practitioner Hematology/Oncology 05/21/22 Linette Davis, RN [address] [facility] [place] [address] Specialty Field Installer Hematology/Oncology 05/21/22 Team Status: Inactive Member Role Status Dates Vivi Liao MD Primary Care Provider Active Raffaele Mejia DO Emergency Provider Active Family Nurse Relationship Specialty Start Date End Date Vivi Liao MD [address] [place] [address] PCP - General Internal Medicine 01/23/18 Petey Vargas [address] [address] Physician Cardiology 03/11/18 Adan Campbell (Hist) Primary Staff Physician Cardiology 12/22/18 Eric Sol MD [address] [facility] [place] [address] Physician Hematology/Oncology 05/21/22 Tammie Gramajo, SOFTWARE QUALITY ASSURANCE ANALYST.FUNNEL SETTER [address] [facility] [place] [address] Nurse Practitioner Hematology/Oncology 05/21/22 Linette Davis, FIFI [address] [facility] [place] [address] Specialty Field Installer Hematology/Oncology 05/21/22 Family Nurse Relationship Specialty Start Date End Date Vivi Liao MD [address] [place] [address] PCP - General Internal Medicine 01/23/18 Petey Vargas [address] [address] Physician Cardiology 03/11/18 Adan Campbell (Hist) Primary Staff Physician Cardiology 12/22/18 Eric Sol MD [address] [facility] [place] [address] Physician Hematology/Oncology 05/21/22 Tammie Gramajo, SOFTWARE QUALITY ASSURANCE ANALYST.[facility] [address] [facility] [place] [address] Nurse Practitioner Hematology/Oncology 05/21/22 Linette Davis, FIFI [address] [facility] [place] [address] Specialty Field Installer Hematology/Oncology 05/21/22 Family Nurse Relationship Specialty Start Date End Date Vivi Liao MD [address] [place] [address] PCP - General Internal Medicine 01/23/18 Petey Vargas [address] [address] [place] [address] Physician Cardiology 03/11/18 Adan Cmapbell (Hist) Primary Staff Physician Cardiology 12/22/18 Eric Sol MD [address] [facility] [place] [address] Physician Hematology/Oncology 05/21/22 Tammie Gramajo, SOFTWARE QUALITY ASSURANCE ANALYST.FUNNEL SETTER [address] [facility] [place] [address] Nurse Practitioner Hematology/Oncology 05/21/22 Linette Davis, FIFI [address] [facility] [place] [address] Specialty Field Installer Hematology/Oncology 05/21/22 Family Nurse Relationship Specialty Start Date End Date Vivi Liao MD [address] [place] [address] PCP - General Internal Medicine 01/23/18 Petey Vargas [address] [address] Physician Cardiology 03/11/18 Adan Campbell (Hist) Primary Staff Physician Cardiology 12/22/18 Eric Sol MD [address] [facility] [place] [address] Physician Hematology/Oncology 05/21/22 Tammie Gramajo, SOFTWARE QUALITY ASSURANCE ANALYST.FUNNEL SETTER [address] [facility] [place] [address] Nurse Practitioner Hematology/Oncology 05/21/22 Linette Davis, FIFI [address] [facility] [place] [address] Specialty Field Installer Hematology/Oncology 05/21/22 Family Nurse Relationship Specialty Start Date End Date Vivi Liao MD [address] [place] [address] PCP - General Internal Medicine 01/23/18 Petey Vargas [address] [address] Physician Cardiology 03/11/18 Adan Campbell (Hist) [address] [address] Primary Staff Physician Cardiology 12/22/18 Eric Sol MD [address] [facility] [place] [address] Physician Hematology/Oncology 05/21/22 Tammie Gramajo, SOFTWARE QUALITY ASSURANCE ANALYST.FUNNEL SETTER [address] [facility] [place] [address] Nurse Practitioner Hematology/Oncology 05/21/22 Linette Davis, FIFI [address] [facility] [place] [address] Specialty Field Installer Hematology/Oncology 05/21/22 Family Nurse Relationship Specialty Start Date End Date Vivi Liao MD [address] [place] [phone] PCP - General Internal Medicine 01/23/18 Petey Vargas [address] [phone] Physician Cardiology 03/11/18 Adan Campbell (Hist) [address] [phone] Primary Staff Physician Cardiology 12/22/18 Eric Sol MD [address] [facility] [place] [address] Physician Hematology/Oncology 05/21/22 Tammie Gramajo APRN.FUNNEL SETTER [address] [facility] [place] [address] Nurse Practitioner Hematology/Oncology 05/21/22 Linette Davis, FIFI [address] [facility] [place] [address] Specialty Field Installer Hematology/Oncology 05/21/22 Family Nurse Relationship Specialty Start Date End Date Vivi Liao MD [address] [place] [address] PCP - General Internal Medicine 01/23/18 Petey Vargsa [address] [phone] Physician Cardiology 03/11/18 Adan Campbell (Hist) [address] [phone] Primary Staff Physician Cardiology 12/22/18 Eric Sol MD [address] [facility] [place] [address] Physician Hematology/Oncology 05/21/22 Tammie Gramajo, SOFTWARE QUALITY ASSURANCE ANALYST.FUNNEL SETTER [address] [facility] [place] [address] Nurse Practitioner Hematology/Oncology 05/21/22 Linette Davis, FIFI [address] [facility] [place] [address] Specialty Field Installer Hematology/Oncology 05/21/22 Family Nurse Relationship Specialty Start Date End Date Vivi Liao MD [address] [place] [address] PCP - General Internal Medicine 01/23/18 Petey Vargas [address] [phone] Physician Cardiology 03/11/18 Adan Campbell (Hist) [address] [phone] Primary Staff Physician Cardiology 12/22/18 Eric Sol MD [address] [facility] [place] [address] Physician Hematology/Oncology 05/21/22 Tammie Gramajo, SOFTWARE QUALITY ASSURANCE ANALYST.FUNNEL SETTER [address] [facility] [place] [address] Nurse Practitioner Hematology/Oncology 05/21/22 Linette Davis, RN [address] [facility] [place] [address] Specialty Field Installer Hematology/Oncology 05/21/22 Family Nurse Relationship Specialty Start Date End Date Vivi Liao MD [address] [place] [address] PCP - General Internal Medicine 01/23/18 Petey Raya [address] [phone] Physician Cardiology 03/11/18 Adan Campbell MD [address] [place] [phone] Primary Staff Physician Cardiology 12/22/18 Eric Sol MD [address] [facility] [place] [address] Physician Hematology/Oncology 05/21/22 Tammie Gramajo, JACY.FUNNEL SETTER [address] [facility] [place] [address] Nurse Practitioner Hematology/Oncology 05/21/22 Linette Davis, RN [address] [facility] [place] [address] Specialty Field Installer Hematology/Oncology 05/21/22 Family Nurse Relationship Specialty Start Date End Date Vivi Liao MD [address] [place] [address] PCP - General Internal Medicine 01/23/18 Petey Vargas [address] [address] Physician Cardiology 03/11/18 Adan Campbell MD [address] [place] [phone] Primary Staff Physician Cardiology 12/22/18 Eric Sol MD [address] [facility] [place] [address] Physician Hematology/Oncology 05/21/22 Tammie Gramajo, SOFTWARE QUALITY ASSURANCE ANALYST.[address] [place] [address] Nurse Practitioner Hematology/Oncology 05/21/22 Linette Davis, FIFI [address] [place] [address] [place] [address] Specialty Field Installer Hematology/Oncology 05/21/22 Family Nurse Relationship Specialty Start Date End Date Vivi Liao MD [address] [place] [address] PCP - General Internal Medicine 01/23/18 Petey Vargas [address] [address] Physician Cardiology 03/11/18 Adan Campbell MD [address] [phone] Primary Staff Physician Cardiology 12/22/18 Eric Sol MD [address] [facility] [place] [address] Physician Hematology/Oncology 05/21/22 Tammie Gramajo, SOFTWARE QUALITY ASSURANCE ANALYST.[address] [place] [address] Nurse Practitioner Hematology/Oncology 05/21/22 Linette Davis, FIFI [address] [place] [address] [place] [address] Specialty Field Installer Hematology/Oncology 05/21/22 Family Nurse Relationship Specialty Start Date End Date Vivi Liao MD [address] [place] [address] PCP - General Internal Medicine 01/23/18 Petey Woodall MD [address] [place] [address] Physician Cardiology 03/11/18 Adan Campbell MD [address] [place] [address] Primary Staff Physician Cardiology 12/22/18 Eric Sol MD [address] [facility] [place] [address] Physician Hematology/Oncology 05/21/22 Tammie Gramajo APRN.[facility] [address] [facility] [place] [address] Nurse Practitioner Hematology/Oncology 05/21/22 Linette Davis, FIFI [address] [facility] [place] [address] Specialty Field Installer Hematology/Oncology 05/21/22 Family Nurse Relationship Specialty Start Date End Date Vivi Liao MD [address] [place] [address] PCP - General Internal Medicine 01/23/18 Petey Woodall MD [address] [place] [phone] Physician Cardiology 03/11/18 Adan Campbell MD [address] [place] [phone] Primary Staff Physician Cardiology 12/22/18 Eric Sol MD [address] [facility] [place] [address] Physician Hematology/Oncology 05/21/22 Tammie Gramajo, SOFTWARE QUALITY ASSURANCE ANALYST.FUNNEL SETTER [address] [facility] [place] [address] Nurse Practitioner Hematology/Oncology 05/21/22 Linette Davis, RN [address] [facility] [place] [address] Specialty Field Installer Hematology/Oncology 05/21/22 Family Nurse Relationship Specialty Start Date End Date Vivi Liao MD [address] [place] [phone] PCP - General Internal Medicine 01/23/18 Petey Woodall MD [address] [phone] Physician Cardiology 03/11/18 Adan Campbell MD [address] [phone] Primary Staff Physician Cardiology 12/22/18 Eric Sol MD [address] [facility] [place] [address] Physician Hematology/Oncology 05/21/22 Tammie Gramajo, SOFTWARE QUALITY ASSURANCE ANALYST.FUNNEL SETTER [address] [facility] [place] [address] Nurse Practitioner Hematology/Oncology 05/21/22 Linette Davis, FIFI [address] [facility] [place] [address] Specialty Field Installer Hematology/Oncology 05/21/22 Family Nurse Relationship Specialty Start Date End Date Vivi Liao MD [address] [place] [address] PCP - General Internal Medicine 01/23/18 Petey Woodall MD [address] [place] [address] Physician Cardiology 03/11/18 Adan Campbell MD [address] [place] [phone] Primary Staff Physician Cardiology 12/22/18 Eric Sol MD [address] [place] [address] [place] [address] Physician Hematology/Oncology 05/21/22 Tammie Gramajo APRN.FUNNEL SETTER [address] [place] [address] [place] [address] Nurse Practitioner Hematology/Oncology 05/21/22 Linette Davis, FIFI [address] [facility] [place] [address] Specialty Field Installer Hematology/Oncology 05/21/22 Family Nurse Relationship Specialty Start Date End Date Vivi Liao MD [address] [place] [address] PCP - General Internal Medicine 01/23/18 Petey Woodall MD [address] [place] [address] Physician Cardiology 03/11/18 Adan Campbell MD [address] [phone] Primary Staff Physician Cardiology 12/22/18 Eric Sol MD [address] [facility] [place] [address] Physician Hematology/Oncology 05/21/22 Tammie Gramajo, SOFTWARE QUALITY ASSURANCE ANALYST.FUNNEL SETTER [address] [facility] [place] [address] Nurse Practitioner Hematology/Oncology 05/21/22 Family Nurse Relationship Specialty Start Date End Date Vivi Liao MD [address] [place] [phone] PCP - General Internal Medicine 01/23/18 Petey Woodall MD [address] [phone] Physician Cardiology 03/11/18 Adan Campbell MD [address] [phone] Primary Staff Physician Cardiology 12/22/18 Eric Sol MD [address] [facility] [address] Physician Hematology/Oncology 05/21/22 Tammie Gramajo, SOFTWARE QUALITY ASSURANCE ANALYST.FUNNEL SETTER [address] [facility] [place] [address] Nurse Practitioner Hematology/Oncology 05/21/22 Family Nurse Relationship Specialty Start Date End Date Vivi Liao MD [address] [place] [address] PCP - General Internal Medicine 01/23/18 Petey Woodall MD [address] [place] [phone] Physician Cardiology 03/11/18 Adan Campbell MD [address] [place] [phone] Primary Staff Physician Cardiology 12/22/18 Eric Sol MD [address] [facility] [place] [address] Physician Hematology/Oncology 05/21/22 Tammie Gramajo APRN.FUNNEL SETTER [address] [facility] [place] [address] Nurse Practitioner Hematology/Oncology 05/21/22 Family Nurse Relationship Specialty Start Date End Date Vivi Liao MD [address] [place] [phone] PCP - General Internal Medicine 01/23/18 Petey Woodall MD [address] [place] [phone] Physician Cardiology 03/11/18 Adan Campbell MD [address] [place] [phone] Primary Staff Physician Cardiology 12/22/18 Eric Sol MD [address] [facility] [place] [address] Physician Hematology/Oncology 05/21/22 Tammie Gramajo APRN.FUNNEL SETTER [address] [facility] [place] [address] Nurse Practitioner Hematology/Oncology 05/21/22 Family Nurse Relationship Specialty Start Date End Date Vivi Liao MD [address] [place] [phone] PCP - General Internal Medicine 01/23/18 Petey Woodall MD [address] [place] [phone] Physician Cardiology 03/11/18 Adan Campbell MD [address] [place] [phone] Primary Staff Physician Cardiology 12/22/18 Eric Sol MD [address] [facility] [place] [address] Physician Hematology/Oncology 05/21/22 Tammie Gramajo APRN.FUNNEL SETTER [address] [place] [address] [place] [address] Nurse Practitioner Hematology/Oncology 05/21/22 Family Nurse Relationship Specialty Start Date End Date Vivi Liao MD [address] [place] [phone] PCP - General Internal Medicine 01/23/18 Petey Woodall MD [address] [place] [phone] Physician Cardiology 03/11/18 Adan Campbell MD [address] [phone] Primary Staff Physician Cardiology 12/22/18 Eric Sol MD [address] [facility] [place] [address] Physician Hematology/Oncology 05/21/22 Tammie Gramajo APRN.[facility] [address] [facility] [place] [address] Nurse Practitioner Hematology/Oncology 05/21/22 Team Status: Inactive Member Role Status Dates Vivi Liao MD Primary Care Provider Active Start: December 01, 2023 End: December 01, 2023 Kassie Arroyo MD Attending Provider Active St art: December 01, 2023 End: December 01, 2023 Team Status: Inactive Member Role Status Dates Vivi Liao MD Primary Care Provider Active Start: December 23, 2023 End: December 23, 2023 Kassie Arroyo MD Attending Provider Active St art: December 23, 2023 End: December 23, 2023 Family Nurse Relationship Specialty Start Date End Date Vivi Liao MD [address] [place] [phone] PCP - General Internal Medicine 01/23/18 Petey Woodall MD [address] [phone] Physician Cardiology 03/11/18 Adan Campbell MD [address] [phone] Primary Staff Physician Cardiology 12/22/18 Eric Sol MD [address] [facility] [place] [address] Physician Hematology/Oncology 05/21/22 Tammie Gramajo APRN.[facility] [address] [facility] [place] [address] Nurse Practitioner Hematology/Oncology 05/21/22 Goals (unrecognized section and content) Goals may be documented in a n alternate section FOR RECORDS PERTAINING TO PATIENTS WHO ARE OR HAVE BEEN ENROLLED IN A CHEMICAL DEPENDENCY/SUBSTANCEABUSE PROGRAM, SOME INFORMATION MAY BE OMITTED. This clinical summary was aggregated from multiple sources. Caution should be exercised in using it in the provision of clinical care. This summary normalizes information from multiple sources, and as a consequence, information in this document may materially change the coding, format and clinical context of patient data. In addition, data may be omitted in some cases. CLINICAL DECISIONS SHOULD BE BASED ON THE PRIMARY CLINICAL RECORDS. [employer] [facility]. provides no warranty or guarantee of the accuracy or completeness of information in this document.
[2024-02-08 00:25] VITALS: BP 180/96; PULSE 62; TEMP 36.7; O2SAT 99; BMI 21.4
--- NOTE | 2024-02-08 00:36 | CT_ITS ---
The [address] [address] Patient Name: CHAY DELACRUZ MRN: [id number] date: 1955 Sex: F Assigned Patient Location: ER Current Patient Location: ER Accession/Order Number: [id number] Exam Date: 02/08/2024 00:47 Report Date: 02/08/2024 02:27 At the request of: JS SALEEM Procedure: CT head/brain wo con CT OF THE BRAIN WITHOUT CONTRAST: 02/08/2024 12:47 AM EDT HISTORY: Dizziness and double vision. TECHNIQUE: Contiguous axially collimated images were obtained through the intracranial compartment, from the vertex through the foramen magnum. Coronal and Sagittal reformatted images were prepared on a separate workstation and reviewed on the PACS for anatomic correlation. No contrast was administered. This CT exam was performed using one or more of the following dose reduction techniques: Automated exposure control, adjustment of the mA and/or kV according to patient size, or use of iterative reconstruction technique. Thin section coronal and sagittal images were reconstructed from the axial data set. All images were reviewed and interpreted. COMPARISON: None. FINDINGS: There is no intracranial hemorrhage or abnormal extra-axial fluid collection. To the extent of evaluated with noncontrast technique, there is no mass lesion appreciated. There is no mass-effect or shift of midline structures. There is global brain volume loss with prominence of the ventricles and CSF spaces. There is no evidence of hydrocephalus. There is no effacement of the basal cisterns. No evidence of acute ischemia. Patchy white matter low attenuation is nonspecific, but likely related to chronic small vessel ischemic change. Remote left thalamic lacunar infarct. Remote deep white matter infarct adjacent to frontal horn right lateral ventricle. The posterior fossa, brain stem, and fourth ventricle are normal. There is no tonsillar ectopy. The calvarium is intact, without destructive lesion or depressed fracture. The mastoid air cells are well-aerated. The paranasal sinuses are normally aerated. CT/CT head/brain wo con IMPRESSION: 1. No acute intracranial findings. 2. Remote lacunar infarcts involving deep white matter near frontal horn right lateral ventricle and left thalamus. Acute ischemia may be initially CT occult. Consider MRI evaluation or follow-up head CT, if there is clinical concern for acute ischemia or focal neurologic symptoms. Electronically authenticated by: ADRIANNE DOMINGUEZ Date: 02/08/2024 02:27
--- NOTE | 2024-02-08 01:08 | ED_ITS ---
HPI - Dizziness General Chief Complaint: Dizziness Stated Complaint: Dizziness Time Seen by Provider: 02/08/24 00:36 Source: patient Mode of arrival: walk-in History of Present Illness HPI Narrative: patient presents complaining of dizziness. Past episodes of dizziness that usually resolve. Tonight also had an episode of diplopia. No weakness of her extremities. Stable gait. she does not want any labs performed or EKG Related Data Home Medications ?Medication ?Instructions ?Recorded ?Confirmed apixaban 5 mg tablet (Eliquis) 5 mg PO Q12H 02/08/24 02/08/24 hydroxychloroquine 200 mg tablet 200 mg PO DAILY 02/08/24 02/08/24 Allergies Allergy/AdvReac Type Severity Reaction Status Date / Time No Known Drug Allergies Allergy Verified 02/08/24 00:28 Review of Systems ROS Status of ROS 10 or more systems reviewed and unremark able except as noted in history and below Exam Constitutional Vital Signs, click to edit/add: Last Vital Signs Temp 98.1 F 02/08/24 00:25 Pulse 62 02/08/24 00:25 Resp 18 02/08/24 00:25 BP 180/96 H 02/08/24 00:25 Pulse Ox 99 02/08/24 00:25 O2 Del Method Room Air 02/08/24 00:25 Common normals: no apparent distress, average body habitus, oriented x3, no limitations, healthy appearing, alert and well nourished Eye Common normals: EOMs intact bilaterally and conjunctivae normal Respiratory Common normals: normal respiratory effort, no retractions, no use of accessory muscles and clear to auscultation bilaterally Cardio Common normals: regular rate, regular rhythm, S1 normal heart sound and S2 normal heart sound Extremity Common normals: normal to inspection and full ROM Neuro Common normals: oriented x3, CN's II-XII intact bilaterally, moves all extremities, no focal motor deficits and no sensory deficits noted Psych Appearance: grossly normal Course Vital Signs Vital signs: Vital Signs Temperature 98.1 F 02/08/24 00:25 Pulse Rate 62 02/08/24 00:25 Respiratory Rate 18 02/08/24 00:25 Blood Pressure 180/96 H 02/08/24 00:25 Pulse Oximetry 99 02/08/24 00:25 Oxygen Delivery Method Room Air 02/08/24 00:25 Temperature 98.1 F 02/08/24 00:25 Pulse Rate 62 02/08/24 00:25 Respiratory Rate 18 02/08/24 00:25 Blood Pressure 180/96 H 02/08/24 00:25 Pulse Oximetry 99 02/08/24 00:25 Oxygen Delivery Method Room Air 02/08/24 00:25 MDM - Dizziness MDM Narrative Medical decision making narrative: patient presents with dizziness and diplopia. symptoms have resolved. CT brain without acute findings. Patient did not want any further intervention and states she will follow up with her doctor Discharge Plan Discharge Stand Alone Forms: Portal Instructions Chief Complaint: Dizziness Clinical Impression: Diplopia, Dizziness Patient Disposition: Home, Self-Care Prescriptions / Home Meds: No Action Eliquis 5 mg tablet 5 mg PO Q12H hydroxychloroquine 200 mg tablet 200 mg PO DAILY Print Language: Omani Instructions: Dizziness (ED), Diplopia (ED) Referrals: Physician,Non-Staff, MD [Primary Care Provider] - 1 week
== END 2024-02-08 02:49 | disposition home or self-care (01) ==
PROVIDERS: Emergency Provider Internal Medicine
DX: R42 Dizziness and giddiness (principal); H53.2 Diplopia; Z79.01 Long term (current) use of anticoagulants; Z79.899 Other long term (current) drug therapy
CPT/HCPCS: 70450; 99284